=== PATIENT | female | born 1945 | race Caucasian/White ===

== ENCOUNTER 2020-05-16 09:52 | Outpatient (REF) | payer MEDICARE, SELFPAY ==
--- NOTE | 2020-05-16 | PFT_ITS ---
Forced vital capacity, slightly decreased. FEV1 and [id number] are normal. MVV also slightly decreased. Post bronchodilator therapy, there is no significant change. Total lung capacity normal. Residual volume slightly decreased. Diffusion capacity is moderately decreased. CONCLUSION: There is a slight decrease in FVC and MVV and this seems to be effort related. There is no evidence of any significant obstructive airway disorder or restrictive airway disorder. Diffusion capacity is decreased somewhat out of proportion and may be due to pulmonary emphysema/pulmonary vascular disease/or technical reason. Clinical correlation recommended. MD EDUARDO Stevens/MODL / [id number]
== END 2020-05-16 09:53 | disposition home or self-care (01) ==
LOC: HO.RESP 09:52
PROVIDERS: Visit Provider Internal Medicine Pulmonary Disease
DX: R94.2 Abnormal results of pulmonary function studies (principal); R91.8 Other nonspecific abnormal finding of lung field; R06.02 Shortness of breath
CPT/HCPCS: 94060; 94727; 94729; 99214

== ENCOUNTER → 2020-06-25 10:03 | Outpatient (BNVA) | payer MEDICARE, SELFPAY | PROVIDERS: PCP Family Medicine; Referring Provider Family Medicine; Visit Provider Internal Medicine Cardiovascular Disease | DX: R06.02 Shortness of breath (principal); I48.0 Paroxysmal atrial fibrillation; I11.9 Hypertensive heart disease without heart failure; I27.20 Pulmonary hypertension, unspecified; Z79.01 Long term (current) use of anticoagulants; Z79.899 Other long term (current) drug therapy | CPT/HCPCS: 93005; 99212 ==

== ENCOUNTER → 2020-07-02 08:35 | Outpatient (REF) | payer MEDICARE, SELFPAY ==
--- NOTE | 2020-07-02 08:39 | CA_ITS ---
Transthoracic Echocardiogram Patient (Last, First, Middle): Chiquita Meeks P Gender: Female Date of : 1945 Age: 75 Procedure Date: 07/02/2020 Procedure Type: Transthoracic Echocardiogram Location: OP Height: 165.1 cm Weight: 83.92 kg BSA: 1.91 m2 Heart Rate: bpm BP: 148 / 72 mmHg Scratch Polisher: Lorenzo MD: Franco Brennan MD Symptoms: R06.02 - Shortness of breath Study Quality: Fair ECG Rhythm: Sinus Conclusions: - The left ventricular systolic function is normal. The visually estimated ejection fraction is between 60-65%. - Evidence suggests grade II (moderate) diastolic dysfunction. - The left atrium is moderately dilated. - There is moderate mitral annular calcification. - There is mild tricuspid valve regurgitation. - Moderate pulmonary hypertension is present. Findings Left Ventricle Normal left ventricular cavity size. There is normal left ventricular wall thickness. The left ventricular systolic function is normal. The visually estimated ejection fraction is between 60-65%. E/E prime ratio is between 8 and 15 consistent with indeterminate filling pressures. Evidence suggests grade II (moderate) diastolic dysfunction. Right Ventricle Normal right ventricular cavity size and systolic function. Atria The left atrium is moderately dilated. The right atrium is normal in size. Aortic Valve There is a normal trileaflet aortic valve. There is no aortic valve stenosis. There is no aortic valve regurgitation. Mitral Valve There is moderate mitral annular calcification. There is trace mitral valve regurgitation. There is no mitral valve stenosis. Pulmonic Valve The pulmonic valve was not well visualized. Tricuspid Valve Normal tricuspid valve structure. There is mild tricuspid valve regurgitation. The right ventricular systolic pressure is 52 mmHg. Moderate pulmonary hypertension is present. Great Vessels The aortic annulus, sinuses of valsalva, and asc aorta are normal in size. Venous The inferior vena cava is normal in size and collapses greater than 50% with inspiration. Pericardium/Pleural There is no evidence of pericardial effusion. Prior Study Comparison No significant change compared to prior study dated: 01/20/2018. Measurements 2D Linear Measurements RVIDd: 3.14 RVIDd Index: 1.64 IVSd: 0.99 0.6-0.9/0.6-1.0 cm LVIDd: 4.93 3.9-5.3/4.2-5.9 cm LVIDd Index: 2.58 2.4-3.2/2.2-3.1 cm/m2 LVIDs: 3.55 2.0-3.6 cm LVPWd: 1.19 0.7-1.1 cm Ao Root: 3.40 2.1-3.5 cm LA Diam: 4.80 2.7-3.8/3.0-4.0 cm LAIDs Index: 2.51 1.5-2.3 cm/m2 LV Mass: 248.40 67-162/88-224 g LV Mass Index: 130.05 43-95/49-115 g/m2 LVOT Diam: 2.00 3.0+(-)1.3 cm 2D Systolic Function EF 4C: 71.10 >55% EF 2C: 57.40 >55% EF BiP: 62.00 >55% Mitral Valve MV Pk E: 0.87 MV PK A: 0.26 MV Decel Time: 273.00 E/A: 3.30 E'Lateral: 9.57 E'Medial: 5.87 E/E' Med: 14.80 E/E' Lat: 9.10 Aortic Valve AoV Pk Toney: 1.40 AoV Mn Toney: 1.09 AoV VTI: 0.33 AoV Pk Grad: 8.00 Aov Mn Grad: 5.00 BRENDAN Cont.VTI: 1.93 LVOT LVOT Pk Toney: 0.96 LVOT Mn Toney: 0.63 LVOT VTI: 0.20 LVOT Pk Grad: 4.00 LVOT Mn Grad: 2.00 LVOT Diam: 2.00 LVOT Area: 3.14 Diastolic Function MV Pk E: 0.87 MV Pk A: 0.26 E/A: 3.30 E'Medial: 5.87 E/E' Med: 14.80 E' Laterial: 9.57 E/E' Lat: 9.10 Tricuspid Valve TR Pk Toney: 3.49 TR Pk Grad: 49.00 RA Press: 3.00 RVSP: 52.00 Great Vessels Aorta Ao Root-2D: 3.40 2.0-3.7 cm Ao Asc: 2.90 2.1-3.4 cm Ao Arch: 2.70 Updated in Other Vendor System with Status of Final Silvino Can MD electronically signed on 07/02/2020 4:02:28 PM with status of Final
== END ==
LOC: HO.CARD 08:35
PROVIDERS: Visit Provider Internal Medicine Cardiovascular Disease
DX: I27.20 Pulmonary hypertension, unspecified (principal); I48.0 Paroxysmal atrial fibrillation; I51.89 Other ill-defined heart diseases; R06.02 Shortness of breath
CPT/HCPCS: 93306

== ENCOUNTER 2020-08-30 12:20 | Outpatient (REF) | payer MEDICARE, SELFPAY ==
[2020-08-30 12:51] LABS: MANUAL DIFF FLAG NO
[2020-08-30 13:00] LABS: Basophils Percent Auto 0.4 % (0-2); Eosinophils Absolute Auto 0.1 X10*3/uL (0.0-0.4); Eosinophils Percent Auto 1.5 % (0-4); Hematocrit 42.1 % (37-47); Hemoglobin 13.7 g/dl (12.0-16.0); Imm Gran Abs Auto 0.02 X10*3/uL (0.00-0.03); Imm Gran Pct Auto 0.4 % (0.0-0.4); Lymphocytes Absolute Auto 1.1 X10*3/uL (1.2-4.9); Lymphocytes Percent Auto 20.2 % (20-40); Mean Corpuscular HGB Conc 32.5 g/dl (31.0-35.0); Mean Corpuscular Hemoglobin 31.9 pg (27.0-33.0); Mean Corpuscular Volume 97.9 fL (80-98); Mean Platelet Volume 9.4 fL (9.4-12.3); Monocytes Absolute Auto 0.6 X10*3/uL (0.1-1.2); Monocytes Percent Auto 11.1 % (2-11); Neutrophils Absolute Auto 3.6 X10*3/uL (2.0-8.3); Neutrophils Percent Auto 66.4 % (45-73); Platelet Count 187 X10*3/uL (160-400); Red Cell Distribution Width 12.1 % (11.0-16.0); White Blood Count 5.4 X10*3/uL (4.8-10.8)
[2020-08-30 13:22] LABS: Alanine Aminotransferase 64 U/L (0-31); Anion Gap 11 (12-20); Blood Urea Nitrogen 21 mg/dL (9-16); Carbon Dioxide 28 mmol/L (22-29); Chloride 108 mmol/L (96-108); Estimated Glomerular Filt Rate > 60; Potassium 4.2 mmol/l (3.3-5.1); Sodium 143 mmol/L (135-145)
== END 2020-08-30 12:21 | disposition home or self-care (01) ==
LOC: HO.LAB 12:20
PROVIDERS: Visit Provider Family Medicine
DX: I10 Essential (primary) hypertension (principal); E78.00 Pure hypercholesterolemia, unspecified; D72.819 Decreased white blood cell count, unspecified; Z79.899 Other long term (current) drug therapy
CPT/HCPCS: 36415; 80051; 82550; 82565; 84460; 84520; 85025

== ENCOUNTER 2020-12-24 14:14 | Outpatient (REF) | payer MEDICARE, SELFPAY ==
--- NOTE | ~2020-12-24 | XR_ITS ---
EXAMINATION: XR CHEST CLINICAL INFORMATION: Shortness of breath. COMPARISON: 03/18/2019 and 03/22/2018 TECHNIQUE: Two views of the chest were obtained. FINDINGS: There is no evidence of acute parenchymal disease, pneumothorax, or pleural effusion. Heart is upper limits of normal size. No evidence of pulmonary edema. Prominent pericardial fat pad. Mild scarring left base. XR/XR chest 2V IMPRESSION: No acute disease.
== END 2020-12-24 14:15 | disposition home or self-care (01) ==
LOC: HO.XRAY 14:14
PROVIDERS: PCP Family Medicine; Visit Provider Internal Medicine Cardiovascular Disease
DX: I48.0 Paroxysmal atrial fibrillation (principal); I51.89 Other ill-defined heart diseases; Z79.01 Long term (current) use of anticoagulants; Z79.899 Other long term (current) drug therapy
CPT/HCPCS: 71046; 93005; 99212

== ENCOUNTER 2021-03-04 13:06 | Outpatient (REF) | payer MEDICARE, SELFPAY ==
--- NOTE | ~2021-03-04 | CT_ITS ---
EXAMINATION: CT CHEST WITHOUT CONTRAST CLINICAL INFORMATION: Follow up pulmonary nodules. COMPARISON: Previous chest CT most recent March 2020. TECHNIQUE: Multidetector volumetric CT imaging of the chest was done. Axial MIP volume rendering provided. Sagittal and coronal reformatted images were obtained. This CT examination was performed using dose optimization techniques as appropriate, variously including the following: *Automated exposure control *Adjustment of mA and/or kV according to patient size (this includes techniques or standardized protocols for targeted exams where dose is matched to indication/reason for exam; i.e. extremities or head) *Use of iterative reconstruction technique DLP: 160 mGy-cm FINDINGS: LUNGS: There is biapical pleural and parenchymal scarring, left greater than right. There is a 2 mm noncalcified right upper lobe nodule axial image 144 series 5 that is stable. There is an abnormal parenchymal density in the peripheral or subpleural right middle lobe adjacent to the minor fissure axial image 293 series 5. This measures 6 x 13 mm axial image 293 series 5 and is increased from approximately 3 x 13 mm on March 2020 exam. On sagittal and coronal reconstructed images this appears linear and may represent scarring or chronic subsegmental atelectasis. There is more inferior focal bronchiectasis and scarring or chronic subsegmental atelectasis in the right middle lobe. There is scarring or chronic subsegmental atelectasis in the inferior segment of the lingula. There is scarring or chronic subsegmental atelectasis in the posterior right upper lobe near the minor fissure axial image 262 series 5 that is stable. There is dependent atelectasis seen in both lower lobes. There are small calcified pulmonary nodules that are stable. MEDIASTINUM: The heart is slightly enlarged. There is mild coronary artery calcification. There is no pericardial effusion. There are no enlarged lymph nodes. The thyroid gland is unremarkable. PLEURA: There is no pleural effusion. There is focal pleural thickening adjacent to the right lower lobe axial image 25 series 3 that is increased. AXILLA: No lymphadenopathy. UPPER ABDOMEN: There is diverticulosis of the colon. OSSEOUS STRUCTURES: There are degenerative changes of the spine. CT/CT chest wo con IMPRESSION: Increasing abnormal parenchymal density in the peripheral or subpleural right middle lobe adjacent to the minor fissure. This may represent increased scarring or chronic subsegmental atelectasis. Other areas of scarring or chronic subsegmental atelectasis appear stable. Stable small pulmonary nodules. Interval increase in pleural thickening adjacent to the right lower lobe. Enlarged cardiac silhouette and mild coronary artery calcification.
== END 2021-03-04 13:07 | disposition home or self-care (01) ==
LOC: HO.CT 13:06
PROVIDERS: Visit Provider Internal Medicine Pulmonary Disease
DX: R91.8 Other nonspecific abnormal finding of lung field (principal)
CPT/HCPCS: 71250

== ENCOUNTER 2021-04-01 10:29 | Outpatient (REF) | payer MEDICARE, SELFPAY ==
[2021-04-01 11:31] LABS: MANUAL DIFF FLAG NO
[2021-04-01 11:44] LABS: Basophils Percent Auto 0.4 % (0-2); Eosinophils Percent Auto 0.5 % (0-4); Hematocrit 43.4 % (37-47); Hemoglobin 14.2 g/dl (12.0-16.0); Imm Gran Abs Auto 0.02 X10*3/uL (0.00-0.03); Imm Gran Pct Auto 0.4 % (0.0-0.4); Lymphocytes Absolute Auto 0.8 X10*3/uL (1.2-4.9); Lymphocytes Percent Auto 14.7 % (20-40); Mean Corpuscular HGB Conc 32.7 g/dl (31.0-35.0); Mean Corpuscular Hemoglobin 32.1 pg (27.0-33.0); Mean Platelet Volume 9.4 fL (9.4-12.3); Monocytes Absolute Auto 0.5 X10*3/uL (0.1-1.2); Monocytes Percent Auto 7.9 % (2-11); Neutrophils Absolute Auto 4.3 X10*3/uL (2.0-8.3); Neutrophils Percent Auto 76.1 % (45-73); Platelet Count 194 X10*3/uL (160-400); Red Blood Count 4.43 X10*6/uL (4.20-5.50); Red Cell Distribution Width 12.1 % (11.0-16.0); White Blood Count 5.7 X10*3/uL (4.8-10.8)
[2021-04-01 12:07] LABS: Anion Gap 13 (12-20); Blood Urea Nitrogen 17 mg/dL (9-16); Carbon Dioxide 25 mmol/L (22-29); Chloride 107 mmol/L (96-108); Estimated Glomerular Filt Rate 57; Magnesium 2.3 mg/dL (1.6-2.6); Potassium 4.5 mmol/L (3.3-5.1); Sodium 140 mmol/L (135-145)
== END 2021-04-01 10:30 | disposition home or self-care (01) ==
LOC: HO.LAB 10:29
PROVIDERS: PCP Family Medicine; Visit Provider Family Medicine
DX: I10 Essential (primary) hypertension (principal); D72.819 Decreased white blood cell count, unspecified
CPT/HCPCS: 36415; 80051; 82565; 83735; 84520; 85025

== ENCOUNTER → 2021-05-22 14:16 | Outpatient (BNVA) | payer MEDICARE, SELFPAY | PROVIDERS: PCP Family Medicine; Visit Provider Internal Medicine Pulmonary Disease | DX: R94.2 Abnormal results of pulmonary function studies (principal); R91.8 Other nonspecific abnormal finding of lung field; R06.02 Shortness of breath | CPT/HCPCS: 99212 ==

== ENCOUNTER 2021-05-31 13:27 | Outpatient (REF) | payer MEDICARE, SELFPAY ==
--- NOTE | ~2021-05-31 | XR_ITS ---
EXAMINATION: XR CHEST CLINICAL INFORMATION: Shortness of breath. COMPARISON: Chest done on 12/24/2020. TECHNIQUE: 2 views of the chest were obtained. FINDINGS: Persistent stable pleuroparenchymal disease involving the right middle lobe, unchanged since 12/24/2020. The remainder of the lung appear clear. No evidence of any pleural effusion or pneumothorax. The cardiomediastinal silhouette is within normal limits. Unremarkable. Mild diffuse osteopenia. Increased midthoracic kyphosis and mild multilevel degenerative spondylosis. XR/XR chest 2V IMPRESSION: Stable pleuroparenchymal disease involving the right middle lobe, unchanged since 12/24/2020. No new abnormalities.
== END 2021-05-31 13:28 | disposition home or self-care (01) ==
LOC: HO.XRAY 13:27
PROVIDERS: PCP Family Medicine; Visit Provider Internal Medicine Pulmonary Disease
DX: R06.02 Shortness of breath (principal)
CPT/HCPCS: 71046

== ENCOUNTER → 2021-06-13 14:03 | Outpatient (REF) | payer MEDICARE, SELFPAY ==
--- NOTE | 2021-06-13 14:06 | CA_ITS ---
Transthoracic Echocardiogram Patient (Last, First, Middle): Chiquita Meeks P Gender: Female Date of : 1945 Age: 75 Procedure Date: 06/13/2021 Procedure Type: Transthoracic Echocardiogram Location: OP Height: 165.1 cm Weight: 81.65 kg BSA: 1.89 m2 Heart Rate: bpm BP: 134 / 78 mmHg Mgmt Specialist: ALESSANDRO/RHIANNA Referring MD: Franco Brennan MD Construction Flagger: Franco Brennan MD Symptoms: R06.02 - Shortness of breath Study Quality: Fair ECG Rhythm: Sinus Conclusions: - 1. Normal LV systolic function with grade 3 diastolic dysfunction 2. Moderately dilated left atrium 3. Moderate mitral annular calcification with normal cardiac valvular Doppler 4. Moderately elevated right ventricular systolic pressure 5. No gross pericardial effusion Findings Left Ventricle Normal left ventricular size, thickness, and systolic function. The visually estimated ejection fraction is between 55-60%. Spectral Doppler is indicative of a restrictive filling pattern. Elevated filling pressures. E/E prime ratio is >15, consistent with elevated filling pressures. Evidence suggests grade III (severe) diastolic dysfunction. Right Ventricle Normal right ventricular cavity size and systolic function. Atria The left atrium is moderately dilated. There is no evidence of interatrial shunt. The right atrium is likely dilated. Aortic Valve The aortic valve structure and function is likely normal. There is no aortic valve stenosis. There is no aortic valve regurgitation. Mitral Valve There is mild anterior and moderate posterior mitral leaflet thickening. There is moderate mitral annular calcification. There is trace mitral valve regurgitation. There is no mitral valve stenosis. Pulmonic Valve The pulmonic valve was not well visualized. Tricuspid Valve Likely normal tricuspid valve structure and function. There is mild tricuspid valve regurgitation. Normal right atrial pressure. Moderate pulmonary hypertension is present. Great Vessels All visible segments of the aorta are normal in size. The pulmonary artery was not well visualized. Venous The inferior vena cava is normal in size and collapses greater than 50% with inspiration. Pericardium/Pleural There is no evidence of pericardial effusion. Prior Study Comparison Changes noted compared to prior study dated: 07/02/2020. LV diastolic function appears to be grade 3 Measurements 2D Linear Measurements IVSd: 1.14 0.6-0.9/0.6-1.0 cm LVIDd: 5.32 3.9-5.3/4.2-5.9 cm LVIDd Index: 2.81 2.4-3.2/2.2-3.1 cm/m2 LVIDs: 3.75 2.0-3.6 cm LVPWd: 1.01 0.7-1.1 cm Ao Root: 3.30 2.1-3.5 cm LA Diam: 4.20 2.7-3.8/3.0-4.0 cm LAIDs Index: 2.22 1.5-2.3 cm/m2 LV Mass: 276.91 67-162/88-224 g LV Mass Index: 146.52 43-95/49-115 g/m2 LVOT Diam: 2.10 3.0+(-)1.3 cm 2D Systolic Function EF 4C: 55.20 >55% EF 2C: 55.70 >55% EF BiP: 57.90 >55% Mitral Valve MV Pk E: 1.05 MV PK A: 0.30 MV Decel Time: 189.00 E/A: 3.50 E'Lateral: 5.22 E'Medial: 5.44 E/E' Med: 19.30 E/E' Lat: 20.10 PHT: 55.00 MVA PHT: 4.00 Decel [place]: 5.57 Aortic Valve AoV Pk Toney: 1.35 AoV Mn Toney: 1.02 AoV VTI: 0.32 AoV Pk Grad: 7.00 Aov Mn Grad: 4.00 BRENDAN Cont.VTI: 2.17 LVOT LVOT Pk Toney: 0.94 LVOT Mn Toney: 0.64 LVOT VTI: 0.20 LVOT Pk Grad: 4.00 LVOT Mn Grad: 2.00 LVOT Diam: 2.10 LVOT Area: 3.46 Diastolic Function MV Pk E: 1.05 MV Pk A: 0.30 E/A: 3.50 E'Medial: 5.44 E/E' Med: 19.30 E' Laterial: 5.22 E/E' Lat: 20.10 Right Ventricle TAPSE (mm): 1.95 TVS' Toney: 13.40 Tricuspid Valve TR Pk Toney: 3.33 TR Pk Grad: 44.00 RA Press: 3.00 RVSP: 47.00 Great Vessels Aorta Ao Root-2D: 3.30 2.0-3.7 cm Ao Asc: 3.10 2.1-3.4 cm Ao Arch: 2.70 Updated in Other Vendor System with Status of Final Franco Brennan MD electronically signed on 06/14/2021 4:00:03 PM with status of Final
== END ==
LOC: HO.CARD 14:03
PROVIDERS: PCP Family Medicine; Visit Provider Internal Medicine Cardiovascular Disease
DX: R06.02 Shortness of breath (principal)
CPT/HCPCS: 93306

== ENCOUNTER → 2021-06-20 14:42 | Outpatient (BNVA) | payer MEDICARE, SELFPAY | PROVIDERS: PCP Family Medicine; Visit Provider Internal Medicine Cardiovascular Disease | DX: I48.0 Paroxysmal atrial fibrillation (principal); I51.89 Other ill-defined heart diseases | CPT/HCPCS: 93005; 99212 ==

== ENCOUNTER → 2021-06-21 14:20 | Outpatient (BNVA) | payer MEDICARE, SELFPAY | PROVIDERS: PCP Family Medicine; Visit Provider Internal Medicine Pulmonary Disease | DX: R05.3 Chronic cough (principal); R94.2 Abnormal results of pulmonary function studies; R91.8 Other nonspecific abnormal finding of lung field | CPT/HCPCS: 99212 ==

== ENCOUNTER → 2021-06-24 10:36 | Outpatient (REF) | payer MEDICARE, SELFPAY ==
--- NOTE | ~2021-06-24 | NM_ITS ---
TC_PYP CARDIAC STUDY INDICATION: Evaluation for cardiac amyloidosis CLINICAL HISTORY: 76-year-old with diastolic dysfunction and atrial fibrillation with symptoms of congestive heart failure. TECHNIQUE: The patient is injected with 25 mCi of [id number] intravenously. Images of the chest were obtained in the anterior and left lateral views at 3 hours. Chest also obtained. Total DLP 61 mGy-cm. FINDINGS: 1. Image quality is adequate. 2. Semiquantitative visual scoring of the cardiac uptake is 0. This is suggestive of absent cardiac uptake 3. H-CL is not applicable 4. No clear extracardiac findings CONCLUSION: 1. No evidence wild-type ATTR amyloidosis 2. If clinically suspected performed to rule out light chain amyloidosis
== END ==
LOC: HO.NUCMED 10:36
PROVIDERS: PCP Family Medicine; Visit Provider Internal Medicine Cardiovascular Disease
DX: I48.0 Paroxysmal atrial fibrillation (principal); I51.89 Other ill-defined heart diseases
CPT/HCPCS: 78803; A9538

== ENCOUNTER 2021-06-26 14:19 | Outpatient (REF) | payer MEDICARE, SELFPAY | END 2021-06-26 14:20 | disposition home or self-care (01) | LOC: HO.LNP 14:19 | PROVIDERS: Visit Provider Internal Medicine Pulmonary Disease | DX: R06.02 Shortness of breath (principal) | CPT/HCPCS: 87070; 87205 ==

== ENCOUNTER → 2021-07-11 15:06 | Outpatient (BNVA) | payer MEDICARE, SELFPAY | PROVIDERS: PCP Family Medicine; Visit Provider Internal Medicine Pulmonary Disease ==

== ENCOUNTER → 2021-07-25 14:57 | Outpatient (BNVA) | payer MEDICARE, SELFPAY | PROVIDERS: PCP Family Medicine; Visit Provider Internal Medicine Pulmonary Disease | DX: R05.3 Chronic cough (principal); R06.02 Shortness of breath; R94.2 Abnormal results of pulmonary function studies | CPT/HCPCS: 99212 ==

== ENCOUNTER 2021-07-27 15:16 | Inpatient (IN) | payer MEDICARE, SELFPAY ==
[2021-07-27] VITALS (7 sets, daily range): BP systolic 156–175; BP diastolic 99–113; PULSE 99–122; RESP 14–20; TEMP 36.6–36.8; O2SAT 95–97; BMI 30.1
--- NOTE | 2021-07-27 | ECG_ITS ---
Test Reason : DYSRYTHMIA Blood Pressure : / mmHG Vent. Rate : 102 BPM Atrial Rate : 000 BPM P-R Int : 000 ms QRS Dur : 090 ms QT Int : 366 ms P-R-T Axes : 000 019 008 degrees QTc Int : 477 ms Atrial fibrillation with rapid ventricular response Minimal voltage criteria for LVH, may be normal variant ( [place] product ) Nonspecific ST abnormality Abnormal ECG When compared with ECG of 29-APR-2019 14:17, Atrial fibrillation has replaced Sinus rhythm Inverted T waves have replaced nonspecific T wave abnormality in Inferior leads Referred By: Generic ED Physician Electronically Signed By:TAMICA SOLITARIO MD
--- NOTE | ~2021-07-27 | XR_ITS ---
EXAMINATION: XR CHEST CLINICAL INFORMATION: Atrial fibrillation. COMPARISON: Chest radiograph dated from 05/31/2021. TECHNIQUE: AP view of the chest was obtained. FINDINGS: Unchanged cardiomediastinal silhouette. Mild subsegmental atelectasis of the lung bases. No new focal airspace opacities, pleural effusions or pneumothorax. No acute osseous findings. XR/XR chest 1V IMPRESSION: No acute cardiopulmonary findings.
[2021-07-27 16:56] LABS: COVID-19 Test Negative (Negative)
--- NOTE | 2021-07-27 19:55 | ED.ARRPALP ---
HPI - Arrhythmia/Palpitations General Chief Complaint: Arrhythmia/Palpitations Stated Complaint: afib Time Seen by Provider: 07/27/21 19:32 Source: patient Mode of arrival: ambulatory Limitations: no limitations History of Present Illness HPI narrative: Patient comes to emergency room complaining of feeling ?crappy?, having palpitations intermittently since approximately 5 in the morning. At this time patient denies chest pain, patient has chronic shortness of breath. Patient states that her Lasix dose has been changed multiple times by her different specialists, currently 10 mg. Patient also takes amiodarone, carvedilol, diltiazem. Patient also takes Xarelto. Patient states that she has history of 2 ablations and 5 cardioversions. This morning, patient called Dr. Brennan office, who recommended an additional dose of Cardizem. Patient states that she has been having intermittently symptoms. Related Data Home Medications Medication Instructions Recorded Confirmed gabapentin 300 mg capsule mg PO 05/16/20 06/20/21 losartan 100 mg tablet 50 mg PO DAILY tab 05/16/20 06/20/21 montelukast 10 mg tablet 10 mg PO DAILY 05/16/20 06/20/21 omeprazole 20 mg capsule,delayed 20 mg PO DAILY 05/16/20 06/20/21 release fexofenadine 180 mg tablet 180 mg PO DAILY 06/21/21 ([facility] Allergy) Previous Rx's Medication Instructions Recorded diltiazem HCl 120 mg 120 mg PO DAILY #30 cap 08/01/20 capsule,extended release 24 hr atorvastatin 40 mg tablet 40 mg PO DAILY 90 Days #90 tab 03/15/21 rivaroxaban 20 mg tablet (Xarelto) 20 mg PO DAILY 90 Days #90 tab 04/02/21 amiodarone 200 mg tablet 200 mg PO DAILY #90 tab 07/22/21 carvedilol 12.5 mg tablet 12.5 mg PO BID 90 Days #180 tab 07/22/21 doxycycline hyclate 100 mg capsule 100 mg PO BID 10 Days #20 cap 07/25/21 Allergies Allergy/AdvReac Type Severity Reaction Status Date / Time aspirin [ASPIRIN] Allergy Unknown RASH Verified 07/25/21 14:59 Sulfa (Sulfonamide Allergy Unknown RASH Verified 07/25/21 14:59 Antibiotics) [SULFA (SULFONAMIDE ANTIBIOTICS)] Review of Systems Review of Systems: Constitutional : No Weight loss, No Fever, No Chills, No Night Sweats, No Fatigue, No Malaise ENT/Mouth : No Hearing loss, No Ear Pain, No Nasal Congestion, No Sinus Pain, No Hoarseness, No sore throat, No Rhinorrhea, No Swallowing Difficulty Eyes: No Eye Pain, No Swelling, No Redness, No Foreign Body, No Discharge, No Vision Changes Cardiovascular : No Chest Pain, No SOB, No Dyspnea on Exertion, No Orthopnea, complaining of chronic lower extremity edema, complaining of Palpitations Respiratory : Complaining of chronic, Cough, No Sputum, No Wheezing, complaining of chronic Dyspnea Gastrointestinal : No Nausea, No Vomiting, No Diarrhea, No Constipation, No abdominal Pain, No Hematochezia, No Melena Genitourinary : no irregular bleeding, No Dysuria, No Urinary Frequency, No Hematuria, No Urinary Incontinence, No Urgency, No Flank Pain, No Urinary Flow Changes, No Hesitancy Musculoskeletal : No joint pain, No Myalgias, No Joint Swelling Skin : No Skin Lesions, No rash Neuro : No Weakness, No Numbness, No Paresthesias, No Loss of Consciousness, No Dizziness, No Headache Psych : No Anxiety/Panic, No Depression, No SI/HI/AH/VH, No Social Issues, Heme/Lymph: No Bruising, No Bleeding,No Lymphadenopathy Endocrine : No Polyuria, No Polydipsia, No Temperature Intolerance [facility] Past Medical History Medical History Diastolic dysfunction History of cardiomyopathy History of cardioversion HTN (hypertension) Paroxysmal atrial fibrillation Pulmonary hypertension Surgical History History of back surgery Hx of cardiac cath Hx of hand surgery Family History Family History Father Cancer Mother No problems noted. Social History Social History Advance Directives: No Advance Directives Information Provided: Yes Physical Exam Vital Signs: Vital Signs: Last Vital Signs Temp 98.1 F 07/27/21 22:34 Pulse 119 H 07/27/21 22:34 Resp 16 07/27/21 22:34 BP 166/110 H 07/27/21 22:34 Pulse Ox 97 07/27/21 22:34 BMI result Body Mass Index 30.1 Const: Other: Appearance: Alert. Oriented X3. No acute distress. Eyes: Pupils equal, round and reactive to light. ENT: Pharynx normal. Neck: Normal inspection. Neck supple. No lymph nodes noted. No crepitus CVS: Irregularly irregular, heart rate approximately 100 to 110, normal S1 and S2 Respiratory: No respiratory distress. Breath sounds normal. No Wheezing. No rales Abdomen: Soft and nontender. No rigidity. No distention. good BS x4 Skin: Skin warm and dry. Normal skin color. Normal skin turgor. Extremities: +1 pitting edema bilaterally No Lacerations. No Rash Neuro: Oriented X 3. No motor deficit. No sensory deficit. Moving all extermities. No slurred speech. Course Course Course Narrative: Patient received 1 dose of 10 mg IV Cardizem. Patient's heart rate dropped to 110. Blood pressure still 160/110 systolic. Patient received a 2nd dose of IV Cardizem. Patient's heart rate varies between 88-120. Patient started on a Cardizem drip. Patient will be admitted to the hospital, is possible the patient will need cardioversion, she has had 5 cardioversions in the last few years. MDM - Arrhythmia/Palpitations Lab Data Result diagrams: 07/27/21 20:15 07/27/21 20:15 Labs: Lab Results 07/27/21 07/27/21 07/27/21 Range/Units 16:16 20:15 20:15 WBC 6.8 (4.8-10.8) X10*3/uL RBC 4.94 (4.20-5.50) X10*6/uL Hgb 16.4 H (12.0-16.0) g/dl Hct 48.2 H (37.0-47.0) % MCV 97.6 (80.0-98.0) fL MCH 33.2 H (27.0-33.0) pg MCHC 34.0 (31.0-35.0) g/dl RDW 12.2 (11.0-16.0) % Plt Count 246 (160-400) X10*3/uL MPV 8.8 L (9.4-12.3) fL Immature Gran % (Auto) 0.3 (0.0-0.4) % Neut % (Auto) 63.1 (45-73) % Lymph % (Auto) 25.0 (20-40) % [place] % (Auto) 10.0 (2-11) % Eos % (Auto) 1.0 (0-4) % Baso % (Auto) 0.6 (0-2) % Lymph # (Auto) 1.7 (1.2-4.9) X10*3/uL [place] # (Auto) 0.7 (0.1-1.2) X10*3/uL Eos # (Auto) 0.1 (0.0-0.4) X10*3/uL Baso # (Auto) 0.0 (0.0-0.2) X10*3/uL Abs Immat Gran (auto) 0.02 (0.00-0.03) X10*3/uL Absolute Neuts (auto) 4.3 (2.0-8.3) x10*3/uL Absolute Nucleated RBC 0.000 (0.0-0.012) X10*3/uL Nucleated RBC % (auto) 0.0 (0.0-0.2) /100WBC Sodium 144 (135-145) mmol/L Potassium 3.8 (3.3-5.1) mmol/L Chloride 107 (96-108) mmol/L Carbon Dioxide 24 (22-29) mmol/L Anion Gap 17 (12-20) BUN 18 H (9-16) mg/dL Creatinine 0.83 (0.5-1.4) mg/dL Estim Creat Clear Calc 60.0 Estimated GFR > 60 Random Glucose 124 H (60-115) mg/dL Calcium 9.8 (8.4-10.2) mg/dL Total Bilirubin 1.7 H (0.0-1.0) mg/dL Direct Bilirubin 0.6 H (0.0-0.5) mg/dL AST 56 H (5-31) U/L ALT 77 H (0-31) U/L Alkaline Phosphatase 101 (39-117) U/L Troponin I High Sens (<3.5-17.0) ng/L Total Protein 7.9 (6.5-8.0) g/dL Albumin 4.8 (3.5-5.0) g/dL COVID-19 (KIANA) Negative (Negative) COVID-19 Clin Com See Note 07/27/21 Range/Units 20:15 WBC (4.8-10.8) X10*3/uL RBC (4.20-5.50) X10*6/uL Hgb (12.0-16.0) g/dl Hct (37.0-47.0) % MCV (80.0-98.0) fL MCH (27.0-33.0) pg MCHC (31.0-35.0) g/dl RDW (11.0-16.0) % Plt Count (160-400) X10*3/uL MPV (9.4-12.3) fL Immature Gran % (Auto) (0.0-0.4) % Neut % (Auto) (45-73) % Lymph % (Auto) (20-40) % [place] % (Auto) (2-11) % Eos % (Auto) (0-4) % Baso % (Auto) (0-2) % Lymph # (Auto) (1.2-4.9) X10*3/uL [place] # (Auto) (0.1-1.2) X10*3/uL Eos # (Auto) (0.0-0.4) X10*3/uL Baso # (Auto) (0.0-0.2) X10*3/uL Abs Immat Gran (auto) (0.00-0.03) X10*3/uL Absolute Neuts (auto) (2.0-8.3) x10*3/uL Absolute Nucleated RBC (0.0-0.012) X10*3/uL Nucleated RBC % (auto) (0.0-0.2) /100WBC Sodium (135-145) mmol/L Potassium (3.3-5.1) mmol/L Chloride (96-108) mmol/L Carbon Dioxide (22-29) mmol/L Anion Gap (12-20) BUN (9-16) mg/dL Creatinine (0.5-1.4) mg/dL Estim Creat Clear Calc Estimated GFR Random Glucose (60-115) mg/dL Calcium (8.4-10.2) mg/dL Total Bilirubin (0.0-1.0) mg/dL Direct Bilirubin (0.0-0.5) mg/dL AST (5-31) U/L ALT (0-31) U/L Alkaline Phosphatase (39-117) U/L Troponin I High Sens 14.4 (<3.5-17.0) ng/L Total Protein (6.5-8.0) g/dL Albumin (3.5-5.0) g/dL COVID-19 (KIANA) (Negative) COVID-19 Clin Com Imaging Data Chest x-ray: Radiologist's impression: FINDINGS: Unchanged cardiomediastinal silhouette. Mild subsegmental atelectasis of the lung bases. No new focal airspace opacities, pleural effusions or pneumothorax. No acute osseous findings. XR/XR chest 1V IMPRESSION: No acute cardiopulmonary findings. Critical Care Time Critical Care Time Critical Care Time: Yes Total Critical Care Time: 50 Attestation: 50 minutes were spent in direct patient care and stabilization Discharge Plan Discharge Clinical Impression: Atrial fibrillation with RVR Patient Disposition: Admitted As Inpatient Prescriptions: No Action diltiazem HCl 120 mg capsule,extended release 24hr 120 mg PO DAILY Qty: 30 RF: 6 atorvastatin 40 mg tablet 40 mg PO DAILY 90 Days Qty: 90 RF: 3 Xarelto 20 mg tablet 20 mg PO DAILY 90 Days Qty: 90 RF: 2 amiodarone 200 mg tablet 200 mg PO DAILY Qty: 90 RF: 1 carvedilol 12.5 mg tablet 12.5 mg PO BID 90 Days Qty: 180 RF: 3 omeprazole 20 mg capsule,delayed release(DR/EC) 20 mg PO DAILY RF: 0 losartan 100 mg tablet 50 mg PO DAILY RF: 0 montelukast 10 mg tablet 10 mg PO DAILY RF: 0 gabapentin 300 mg capsule PO RF: 0 fexofenadine [Shea Allergy] 180 mg tablet 180 mg PO DAILY RF: 0 doxycycline hyclate 100 mg capsule 100 mg PO BID 10 Days Qty: 20 RF: 0
--- NOTE | 2021-07-27 19:58 | ECG_ITS ---
Test Reason : AFIB Blood Pressure : / mmHG Vent. Rate : 094 BPM Atrial Rate : 000 BPM P-R Int : 000 ms QRS Dur : 090 ms QT Int : 372 ms P-R-T Axes : 000 019 029 degrees QTc Int : 465 ms Atrial fibrillation Minimal voltage criteria for LVH, may be normal variant ( [place] product ) Nonspecific ST abnormality Abnormal ECG When compared with ECG of 27-JUL-2021 15:36, Nonspecific T wave abnormality now evident in Anterior leads Referred By: Radha Leroy Electronically Signed By:TAMICA SOLITARIO MD
[2021-07-27 20:20] LABS: MANUAL DIFF FLAG NO
[2021-07-27 20:24] LABS: Basophils Percent Auto 0.6 % (0-2); Eosinophils Absolute Auto 0.1 X10*3/uL (0.0-0.4); Hematocrit 48.2 % (37.0-47.0); Hemoglobin 16.4 g/dl (12.0-16.0); Imm Gran Abs Auto 0.02 X10*3/uL (0.00-0.03); Imm Gran Pct Auto 0.3 % (0.0-0.4); Lymphocytes Absolute Auto 1.7 X10*3/uL (1.2-4.9); Mean Corpuscular Hemoglobin 33.2 pg (27.0-33.0); Mean Corpuscular Volume 97.6 fL (80.0-98.0); Mean Platelet Volume 8.8 fL (9.4-12.3); Monocytes Absolute Auto 0.7 X10*3/uL (0.1-1.2); Neutrophils Absolute Auto 4.3 x10*3/uL (2.0-8.3); Neutrophils Percent Auto 63.1 % (45-73); Platelet Count 246 X10*3/uL (160-400); Red Blood Count 4.94 X10*6/uL (4.20-5.50); Red Cell Distribution Width 12.2 % (11.0-16.0); White Blood Count 6.8 X10*3/uL (4.8-10.8)
[2021-07-27] MEDS: dilTIAZem HCL 50 MG/10 ML VIAL 10 MG IVPUSH ×2 (20:28→21:24)
[2021-07-27 20:35] LABS: Alanine Aminotransferase 77 U/L (0-31); Albumin Level 4.8 g/dL (3.5-5.0); Alkaline Phosphatase 101 U/L (39-117); Anion Gap 17 (12-20); Aspartate Amino Transferase 56 U/L (5-31); Bilirubin Direct 0.6 mg/dL (0.0-0.5); Bilirubin Total 1.7 mg/dL (0.0-1.0); Blood Urea Nitrogen 18 mg/dL (9-16); Calcium 9.8 mg/dL (8.4-10.2); Carbon Dioxide 24 mmol/L (22-29); Chloride 107 mmol/L (96-108); Estimated Glomerular Filt Rate > 60; Glucose Random 124 mg/dL (60-115); Potassium 3.8 mmol/L (3.3-5.1); Sodium 144 mmol/L (135-145); Total Protein 7.9 g/dL (6.5-8.0)
[2021-07-27 20:39] LABS: Troponin-I High Sensitivity 14.4 ng/L (<3.5-17.0)
--- NOTE | 2021-07-27 23:00 | P.HPHOSP_ITS ---
History of Present Illness Date of Service: 07/27/21 Chief Complaint: palpitations This is a 76-year-old female with past medical history of AFib, diastolic heart failure, HTN, pulmonary hypertension who presents to the hospital with complaints of palpitations. Patient reports that she has been having on on palp itations for the past few days. She has not had any dizziness, but felt tired, she feels that there is mice running in her chest, she denies any chest pain, denies any shortness of breath, she has been having dry heaves with no vomiting, no abdominal pain, no diarrhea constipation, no urinary symptoms and no lower extremity edema. She called her management lecturer Dr. Brennan of recommended taking extra dose of her Cardizem which did not really resolve her symptoms, therefore decided to come to the hospital with recommendation from her management lecturer. In the ED patient presented with a heart rate in the 110s-130s, received 10 mg of IV Cardizem x2 but remained tachycardic, patient was started on diltiazem drip. Other vitals on arrival were significant for temp of 98.3?, respiratory rate of 20, blood pressure 156/118, satting 96 on room air Labs are significant for WBC count of 6.8, hemoglobin of 16.4, hematocrit 40.2, total bilirubin of 1.7, direct bili of 0.6, AST of 56 ALT of 77, BNP of 328, UA positive for leukocyte Estrace and WBC Chest x-ray shows no acute cardiopulmonary findings EKG showed AFib with RVR and inverted T-waves in inferior leads Patient will be admitted for further management Review of Systems Review of Systems: Yes all other systems are reviewed and are negative [facility] Medical History Diastolic dysfunction History of cardiomyopathy History of cardioversion HTN (hypertension) Paroxysmal atrial fibrillation Pulmonary hypertension Family History Father Cancer Mother No problems noted. Surgical History History of back surgery Hx of cardiac cath Hx of hand surgery Social History Advance Directives: No Advance Directives Information Provided: Yes Meds Allergies Allergy/AdvReac Type Severity Reaction Status Date / Time aspirin [ASPIRIN] Allergy Unknown RASH Verified 07/25/21 14:59 Sulfa (Sulfonamide Allergy Unknown RASH Verified 07/25/21 14:59 Antibiotics) [SULFA (SULFONAMIDE ANTIBIOTICS)] Active Medications: Current Medications Diltiazem HCl 125 mg/ Sodium (Chloride) 125 mls @ 0 mls/hr IVCONT .Q0M [facility]; Protocol Home Medications Medication Instructions Recorded Confirmed Last Taken Type gabapentin 300 mg capsule mg PO 05/16/20 06/20/21 Unknown History losartan 100 mg tablet 50 mg PO DAILY tab 05/16/20 06/20/21 Unknown History montelukast 10 mg tablet 10 mg PO DAILY 05/16/20 06/20/21 Unknown History omeprazole 20 mg capsule,delayed 20 mg PO DAILY 05/16/20 06/20/21 Unknown History release fexofenadine 180 mg tablet 180 mg PO DAILY 06/21/21 Unknown History (Shea Allergy) Physical Exam Vital Signs and Narrative: Vital Signs: Last Vital Signs Temp 98.1 F 07/27/21 22:34 Pulse 119 H 07/27/21 22:34 Resp 16 07/27/21 22:34 BP 166/110 H 07/27/21 22:34 Pulse Ox 97 07/27/21 22:34 BMI result Body Mass Index 30.1 Const: General: cooperative and no acute distress Orientation/consciousness: patient oriented x3 Eyes: General: appearance normal, both eyes and all related structures Pupils: Equal, round and reactive pupils present Resp: Effort & Inspection: normal respiratory effort Auscultation: clear to auscultation bilaterally Cardio: Other: Irregular rhythm, tachycardic GI: Palpation (GI): Soft to palpation Auscultation: normal bowel sounds Skin: General skin exam: no rashes or lesions noted Neuro: General: patient oriented x3 Cranial nerves: Yes Equal, round and reactive pupils present Cognition (Neuro): normal cognition Extrem: General: Yes normal to inspection and Yes no pedal edema Results Labs CBC and Chem 7: 07/27/21 20:15 07/27/21 20:15 Labs: Laboratory Results - last 24 hr 07/27/21 07/27/21 07/27/21 16:16 20:15 20:15 MCV 97.6 MCH 33.2 H MCHC 34.0 RDW 12.2 Plt Count 246 MPV 8.8 L Immature Gran % (Auto) 0.3 Neut % (Auto) 63.1 Lymph % (Auto) 25.0 Bath % (Auto) 10.0 Eos % (Auto) 1.0 Baso % (Auto) 0.6 Lymph # (Auto) 1.7 Bath # (Auto) 0.7 Eos # (Auto) 0.1 Baso # (Auto) 0.0 Abs Immat Gran (auto) 0.02 Absolute Neuts (auto) 4.3 Absolute Nucleated RBC 0.000 Nucleated RBC % (auto) 0.0 Anion Gap 17 Estim Creat Clear Calc 60.0 Estimated GFR > 60 Random Glucose 124 H Calcium 9.8 Total Bilirubin 1.7 H Direct Bilirubin 0.6 H AST 56 H ALT 77 H Alkaline Phosphatase 101 Troponin I High Sens Total Protein 7.9 Albumin 4.8 COVID-19 ([facility]) Negative COVID-19 Clin Com See Note 07/27/21 20:15 MCV MCH MCHC RDW Plt Count MPV Immature Gran % (Auto) Neut % (Auto) Lymph % (Auto) Bath % (Auto) Eos % (Auto) Baso % (Auto) Lymph # (Auto) Bath # (Auto) Eos # (Auto) Baso # (Auto) Abs Immat Gran (auto) Absolute Neuts (auto) Absolute Nucleated RBC Nucleated RBC % (auto) Anion Gap Estim Creat Clear Calc Estimated GFR Random Glucose Calcium Total Bilirubin Direct Bilirubin AST ALT Alkaline Phosphatase Troponin I High Sens 14.4 Total Protein Albumin COVID-19 ([facility]) COVID-19 Clin Com Imaging Radiologist's Impressions: Impressions Chest X-Ray 07/27/21 20:06 IMPRESSION: No acute cardiopulmonary findings. Assessment and Plan (1) Atrial fibrillation with RVR: Status: Acute (2) UTI (urinary tract infection): Status: Acute 76-year-old female with past medical history of cardiomyopathy as well as AFib presents to the hospital with complaints of palpitations # AFib with RVR - most likely driven by UTI - has no significant elevation in troponin - EKG shows AFib with RVR and 70 T-wave Bashir - will consult Cardiology - keep NPO for possible cardioversion in a.m. - continue Xarelto for anticoagulation and will resume home medications of carvedilol, diltiazem, amiodarone # UTI - positive UA - posterior IV antibiotics - follow cultures # hyperlipidemia - continue statin # history of heart failure - Appears euvolemic at this time - has elevated BNP - monitor respiratory status DVT prophylaxis: Xarelto Quality Stroke Does the patient have a stroke diagnosis?: No VTE Prior VTE?: No VTE Risk Level:: Medical - moderate - high VTE Device Contraindication: Treatment Not Indicated VTE Drug Contraindication: N/A - Med Ordered
[2021-07-27 23:20] LABS: B Type Natriuretic Peptide 328 pg/mL (<100)
[2021-07-27] MEDS: dilTIAZem HCL 125 MG in 0.9 % Sodium Chloride 100 ML 10 MG IVCONT (23:26)
[2021-07-27 23:40] LABS: Appearance Urine CLOUDY; Color Urine DK YELLOW; Glucose Urine UA NEG (NEG); Leukocyte Esterase Urine 3+ (NEG); Nitrite Urine NEG (NEG); Specific Gravity - Urine 1.025 (1.005-1.025); UACC Culture Trigger YES; Urine Blood NEG (NEG); Urine Ketones NEG (NEG); Urine Protein TRACE MG/DL (NEG-TRACE)
[2021-07-28] VITALS (21 sets, daily range): BP systolic 110–158; BP diastolic 77–98; PULSE 62–121; RESP 14–18; TEMP 36.6; O2SAT 90–98
[2021-07-28 00:25] LABS: Bacteria Urine 2+ /LPF; Mucus Urine 4+ /LPF; Squamous Epithelial Cell Urine 4+ /LPF; WBC Urine 30-49 /HPF (0-4)
--- NOTE | 2021-07-28 07:22 | PC.NURSE ---
Patient awake and alert. Speaking in full,clear sentences. Denies any pain, Afib via tele, VSS. continues on cardizem drip. antibiotics ordered, waiting to hear from hospitalist whether or not blood cultures will be ordered prior to abt. patient aware of NPO status at this time
[2021-07-28 07:28] LABS: MANUAL DIFF FLAG NO
[2021-07-28 07:29] LABS: Basophils Percent Auto 0.4 % (0-2); Eosinophils Absolute Auto 0.1 X10*3/uL (0.0-0.4); Eosinophils Percent Auto 0.9 % (0-4); Hematocrit 43.7 % (37.0-47.0); Hemoglobin 14.9 g/dl (12.0-16.0); Imm Gran Abs Auto 0.01 X10*3/uL (0.00-0.03); Imm Gran Pct Auto 0.1 % (0.0-0.4); Lymphocytes Absolute Auto 1.2 X10*3/uL (1.2-4.9); Lymphocytes Percent Auto 17.1 % (20-40); Mean Corpuscular HGB Conc 34.1 g/dl (31.0-35.0); Mean Corpuscular Volume 96.9 fL (80.0-98.0); Mean Platelet Volume 9.1 fL (9.4-12.3); Monocytes Absolute Auto 0.8 X10*3/uL (0.1-1.2); Monocytes Percent Auto 12.4 % (2-11); Neutrophils Absolute Auto 4.6 x10*3/uL (2.0-8.3); Neutrophils Percent Auto 69.1 % (45-73); Platelet Count 214 X10*3/uL (160-400); Red Blood Count 4.51 X10*6/uL (4.20-5.50); Red Cell Distribution Width 12.2 % (11.0-16.0); White Blood Count 6.7 X10*3/uL (4.8-10.8)
[2021-07-28 07:53] LABS: Anion Gap 13 (12-20); Blood Urea Nitrogen 21 mg/dL (9-16); Calcium 8.8 mg/dL (8.4-10.2); Carbon Dioxide 23 mmol/L (22-29); Chloride 110 mmol/L (96-108); Creatinine Clr Calc Pharmacy 69.2; Estimated Glomerular Filt Rate > 60; Glucose Random 100 mg/dL (60-115); Potassium 3.6 mmol/L (3.3-5.1); Sodium 142 mmol/L (135-145)
--- NOTE | 2021-07-28 08:20 | HO.PM.IMPN ---
Subjective Subjective Date of Service: 07/28/21 Interval History: UTI, AFib with RVR Review of Systems Denies any new complaint of chest pain or shortness of breath or abdominal pain or fever or chills or nausea or vomiting or cough Denies any weakness or numbness. Physical Exam Vital Signs: Vital Signs: Last Vital Signs Temp 97.8 F 07/28/21 06:26 Pulse 90 07/28/21 07:21 Resp 18 07/28/21 07:21 BP 143/79 H 07/28/21 07:21 Pulse Ox 94 07/28/21 07:21 BMI result Body Mass Index 30.1 Appearance: Alert.? Oriented X3.? not in distress.? Eyes: Pupils equal, round and reactive to light.? Sclera nonicteric.? ENT: Pharynx normal.? Moist mucous membranes. cvs: irregular rhythm, [id number] res: clear to auscultation ,no rhonchii or wheezing abd: no rebound or guarding ,nt, bs present. ext pulses present , no cyanosis. neuro: axo3 , nonfocal. Objective Data Active Medications Acetaminophen (Acetaminophen 325 Mg Tablet) 650 mg PO Q6H PRN PRN Reason: Pain, Mild (Pain Scale 1-3) Docusate Sodium (Docusate Sodium 100 Mg Capsule) 100 mg PO DAILY PRN PRN Reason: Constipation Diltiazem HCl 125 mg/ Sodium (Chloride) 125 mls @ 0 mls/hr IVCONT .Q0M [facility]; Protocol Last Admin: 07/27/21 23:26 Dose: 10 mg/hr, 10 mls/hr Documented by: RELL Ceftriaxone Sodium 1 gm/ (Sodium Chloride) 50 mls @ 100 mls/hr IV Q24H [facility] Ondansetron HCl (Ondansetron Hcl 4 Mg/2 Ml Vial) 4 mg IVPUSH Q8H PRN PRN Reason: Nausea and Vomiting Sodium Chloride (0.9 % Sodium Chloride Flush 3 Ml Syringe) 3 ml IVFLUSH QSHIFT [facility] Last Admin: 07/28/21 03:02 Dose: Not Given Documented by: ETHAN Non-Admin Reason: Med Not Available Labs CBC & Chem 7: 07/28/21 07:01 07/28/21 07:01 Labs: Laboratory Results - last 24 hr 1207/27/21 07/27/21 16:16 20:15 20:15 MCV 97.6 MCH 33.2 H MCHC 34.0 RDW 12.2 Plt Count 246 MPV 8.8 L Immature Gran % (Auto) 0.3 Neut % (Auto) 63.1 Lymph % (Auto) 25.0 [place] % (Auto) 10.0 Eos % (Auto) 1.0 Baso % (Auto) 0.6 Lymph # (Auto) 1.7 Dixon # (Auto) 0.7 Eos # (Auto) 0.1 Baso # (Auto) 0.0 Abs Immat Gran (auto) 0.02 Absolute Neuts (auto) 4.3 Absolute Nucleated RBC 0.000 Nucleated RBC % (auto) 0.0 Anion Gap 17 Estim Creat Clear Calc 60.0 Estimated GFR > 60 Random Glucose 124 H Calcium 9.8 Total Bilirubin 1.7 H Direct Bilirubin 0.6 H AST 56 H ALT 77 H Alkaline Phosphatase 101 Troponin I High Sens B-Natriuretic Peptide Total Protein 7.9 Albumin 4.8 Urine Color Urine Appearance Urine pH Ur Specific [place] Urine Protein Urine Glucose (UA) Urine Ketones Urine Blood Urine Nitrite Ur Leukocyte Esterase Urine RBC Urine WBC Ur Squamous Epith Cells Urine Bacteria Urine Mucus COVID-19 ([facility]) Negative COVID-19 Clin Com See Note 07/27/21 07/27/21 07/28/21 20:15 23:25 07:01 MCV 96.9 MCH 33.0 MCHC 34.1 RDW 12.2 Plt Count 214 MPV 9.1 L Immature Gran % (Auto) 0.1 Neut % (Auto) 69.1 Lymph % (Auto) 17.1 L [place] % (Auto) 12.4 H Eos % (Auto) 0.9 Baso % (Auto) 0.4 Lymph # (Auto) 1.2 Dixon # (Auto) 0.8 Eos # (Auto) 0.1 Baso # (Auto) 0.0 Abs Immat Gran (auto) 0.01 Absolute Neuts (auto) 4.6 Absolute Nucleated RBC 0.000 Nucleated RBC % (auto) 0.0 Anion Gap Estim Creat Clear Calc Estimated GFR Random Glucose Calcium Total Bilirubin Direct Bilirubin AST ALT Alkaline Phosphatase Troponin I High Sens 14.4 B-Natriuretic Peptide 328 H Total Protein Albumin Urine Color DK YELLOW Urine Appearance CLOUDY Urine pH 6.0 Ur Specific [place] 1.025 Urine Protein TRACE Urine Glucose (UA) NEG Urine Ketones NEG Urine Blood NEG Urine Nitrite NEG Ur Leukocyte Esterase 3+ H Urine RBC 5-9 H Urine WBC 30-49 H Ur Squamous Epith Cells 4+ Urine Bacteria 2+ Urine Mucus 4+ COVID-19 ([facility]) COVID-19 Clin Com 07/28/21 07:01 MCV MCH MCHC RDW Plt Count MPV Immature Gran % (Auto) Neut % (Auto) Lymph % (Auto) [place] % (Auto) Eos % (Auto) Baso % (Auto) Lymph # (Auto) Dixon # (Auto) Eos # (Auto) Baso # (Auto) Abs Immat Gran (auto) Absolute Neuts (auto) Absolute Nucleated RBC Nucleated RBC % (auto) Anion Gap 13 Estim Creat Clear Calc 69.2 Estimated GFR > 60 Random Glucose 100 Calcium 8.8 D Total Bilirubin Direct Bilirubin AST ALT Alkaline Phosphatase Troponin I High Sens B-Natriuretic Peptide Total Protein Albumin Urine Color Urine Appearance Urine pH Ur Specific [place] Urine Protein Urine Glucose (UA) Urine Ketones Urine Blood Urine Nitrite Ur Leukocyte Esterase Urine RBC Urine WBC Ur Squamous Epith Cells Urine Bacteria Urine Mucus COVID-19 ([facility]) COVID-19 Clin Com Assessment and Plan (1) Atrial fibrillation with RVR: Status: Acute (2) UTI (urinary tract infection): Status: Acute Assessment and Plan: 76-year-old female with past medical history of cardiomyopathy as well as AFib presents to the hospital with complaints of palpitations 1.AFib with RVR- most likely driven by UTI EKG shows AFib with RVR on cardizem drip-seems hr flacutaing 120's this morning , but drops to 60's will hold diltiazem drip , moniter tele continue Xarelto for anticoagulation and will resume home medications of carvedilol, diltiazem, amiodarone. 2. UTI- positive UA IV antibiotics-iv ceftriaxone day1 - follow cultures 3. hyperlipidemia - continue statin 4.history of heart failure - Appears euvolemic at this time, has elevated BNP - monitor respiratory status DVT prophylaxis: Xarelto Quality Stroke Does the patient have a stroke diagnosis?: No VTE Prior VTE?: No VTE Risk Level:: Medical - moderate - high VTE Device Contraindication: Treatment Not Indicated VTE Drug Contraindication: N/A - Med Ordered
--- NOTE | 2021-07-28 08:48 | PC.NURSE ---
HR 80's-120 afib via tele. BP 154/91. Cardizem drip increased to 15mg/hr.
--- NOTE | 2021-07-28 08:57 | PHA.MEDREC ---
med rec complete, no issues Pharmacy Consult ? Medication Reconciliation Pharmacy has completed the medication reconciliation.
[2021-07-28] MEDS: cefTRIAXone sodium 1 GM in 0.9 % Sodium Chloride 50 ML IV (09:23)
[2021-07-28] MEDS: 0.9 % Sodium Chloride Flush 3 ML SYRINGE IVFLUSH ×2 (09:23→17:33)
[2021-07-28] MEDS: Losartan Potassium 50 MG TABLET PO ×2 (10:20→19:58)
[2021-07-28] MEDS: Atorvastatin Calcium 40 MG TABLET PO (10:21)
[2021-07-28] MEDS: Amiodarone HCL 200 MG TABLET PO (10:21)
[2021-07-28] MEDS: Multivitamin TABLET 1 TAB PO (10:21)
[2021-07-28] MEDS: ondansetron HCL 4 MG/2 ML VIAL IVPUSH (11:11)
--- NOTE | 2021-07-28 11:18 | P.CONCA_ITS ---
History of Present Illness History of Present Illness Date of Service: 07/28/21 Requesting physician: Jorje Rice Chief complaint: Recurrent atrial fibrillation Narrative: I was requested to see Chiquita in cardiology consultation today for recurrent atrial fibrillation. She is elderly woman with prior history of atrial fibrillation which has been difficult to control and highly symptomatic when she is in atrial fibrillation. She has undergone ablation in the past and has been maintained on amiodarone does and has not been able to reduce amiodarone does because of recurrent atrial fibrillation. She gets significant symptoms related to her loss of AV synchrony. Finite she went to bed not feeling well, woke up Thursday morning with symptoms of not feeling well and noted her pulse to be elevated with heart rate into 120s and 130s beats per minute and knew that she was back in atrial fibrillation. She call my service and be try to manage this at home with extra dose of Cardizem. Her despite extra dose of Cardizem at home including her amiodarone, carvedilol and her usual dose of Cardizem she remained in atrial fibrillation rapid ventricular re sponse at which point I advised her to come to the emergency room for IV Cardizem drip. She did come to the emergency room still does not feel well was started on Cardizem bolus and then started on a drip. There was time when she briefly had slow down and was feeling better. She also noted to have UTI. Her BNP is elevated which is not unusual given her persistent atrial fibrillation. She denies overt orthopnea, PND, lightheadedness, syncope, chest pain. Unfortunately she did not get her dose of Xarelto last night. Review of Systems Constitutional: Constitutional: Denies body ache(s), Denies chills, Reports fatigue, Denies fever(s) and Reports lethargy Eyes: Eyes: Reports no additional eye complaints Cardiovascular: Cardiovascular: Denies chest pain, Reports rapid heart rate, Denies lightheadedness, Denies Loss of Consciousness and Reports dyspnea on exertion Respiratory: Respiratory: Reports no additional respiratory complaints and Reports dyspnea on exertion Gastrointestinal: Gastrointestinal: Reports no additional gastrointestinal complaints Genitourinary: Genitourinary: Reports no additional female genitourinary complaints Musculoskeletal: Musculoskeletal: Reports no additional musculoskeletal complaints Neurologic: Reports system reviewed and no additional complaints, except as documented Psychiatric: Psychiatric: Reports no additional psychiatric complaints Endocrine: Endocrine: Reports no additional endocrine complaints and Reports fatigue Hematologic/Lymphatic: Hematologic/Lymphatic: Reports no additional hematologic/lymphatic complaints [facility] Past Medical History Medical History Diastolic dysfunction History of cardiomyopathy History of cardioversion HTN (hypertension) Paroxysmal atrial fibrillation Pulmonary hypertension Family History Family History Father Cancer Mother No problems noted. Surgical History Surgical History History of back surgery Hx of cardiac cath Hx of hand surgery Social History Social History Advance Directives: No Advance Directives Information Provided: Yes Meds Allergies Allergy/AdvReac Type Severity Reaction Status Date / Time aspirin [ASPIRIN] Allergy Unknown RASH Verified 07/25/21 14:59 Sulfa (Sulfonamide Allergy Unknown RASH Verified 07/25/21 14:59 Antibiotics) [SULFA (SULFONAMIDE ANTIBIOTICS)] Active Medications: Current Medications Acetaminophen (Acetaminophen 325 Mg Tablet) 650 mg PO Q6H PRN PRN Reason: Pain, Mild (Pain Scale 1-3) Amiodarone HCl (Amiodarone Hcl 200 Mg Tablet) 200 mg PO DAILY [facility] Last Admin: 07/28/21 10:21 Dose: 200 mg Documented by: Atorvastatin Calcium (Atorvastatin Calcium 40 Mg Tablet) 40 mg PO DAILY [facility] Last Admin: 07/28/21 10:21 Dose: 40 mg Documented by: Carvedilol (Carvedilol 12.5 Mg Tablet) 12.5 mg PO BID ROSENDA; Protocol Last Admin: 07/28/21 10:22 Dose: Not Given Documented by: Diltiazem HCl (Diltiazem Hcl Cd 240 Mg Cap.Er.Deg) 240 mg PO DAILY ROSENDA; Protocol Last Admin: 07/28/21 10:22 Dose: Not Given Documented by: Docusate Sodium (Docusate Sodium 100 Mg Capsule) 100 mg PO DAILY PRN PRN Reason: Constipation Doxycycline Hyclate (Doxycycline Hyclate 100 Mg Tablet) 100 mg PO Q12H [facility]EN[facility] Last Admin: 07/28/21 10:20 Dose: 100 mg Documented by: Furosemide (Furosemide 20 Mg Tablet) 10 mg PO DAILY [facility]EN[facility]; Protocol Gabapentin (Gabapentin 300 Mg Capsule) 600 mg PO BEDTIME [facility] Diltiazem HCl 125 mg/ Sodium (Chloride) 125 mls @ 0 mls/hr IVCONT .Q0M [facility]; Protocol Last Titration: 07/28/21 11:10 Dose: Infused Documented by: Ceftriaxone Sodium 1 gm/ (Sodium Chloride) 50 mls @ 100 mls/hr IV Q24H [facility] Last Infusion: 07/28/21 10:20 Dose: Infused Documented by: Ketorolac Tromethamine (Ketorolac Tromethamine 0.5% Op 3 Ml Drops) 1 drop EYE-BOTH BID [facility] Last Admin: 07/28/21 10:21 Dose: 1 drop Documented by: Loratadine (Loratadine 10 Mg Tablet) 10 mg PO DAILY [facility] Losartan Potassium (Losartan Potassium 50 Mg Tablet) 50 mg PO BID [facility]; Protocol Last Admin: 07/28/21 10:20 Dose: 50 mg Documented by: Montelukast Sodium (Montelukast Sodium 10 Mg Tablet) 10 mg PO BEDTIME [facility] Multivitamins/Vitamin C (Multivitamin Tablet) 1 tab PO DAILY [facility] Last Admin: 07/28/21 10:21 Dose: 1 tab Documented by: Omeprazole (Omeprazole 20 Mg Capsule.) 20 mg PO BEDTIME [facility] Ondansetron HCl (Ondansetron Hcl 4 Mg/2 Ml Vial) 4 mg IVPUSH Q8H PRN PRN Reason: Nausea and Vomiting Sodium Chloride (0.9 % Sodium Chloride Flush 3 Ml Syringe) 3 ml IVFLUSH QSHIFT [facility] Last Admin: 07/28/21 09:23 Dose: 3 ml Documented by: Home Medications Medication Instructions Recorded Confirmed Last Taken Type gabapentin 300 mg capsule 600 mg PO BEDTIME 05/16/20 07/28/21 Unknown History losartan 100 mg tablet 50 mg PO BID tab 05/16/20 07/28/21 07/27/21 History montelukast 10 mg tablet 10 mg PO BEDTIME 05/16/20 07/28/21 Unknown History omeprazole 20 mg capsule,delayed 20 mg PO BEDTIME 05/16/20 07/28/21 Unknown History release fexofenadine 180 mg tablet 180 mg PO DAILY 06/21/21 07/28/21 07/27/21 History (Shea Allergy) ascorbic acid (vitamin C) 250 mg mg PO DAILY 07/28/21 Unknown History tablet cholecalciferol (vitamin D3) 10 mcg PO DAILY 07/28/21 Unknown History mcg (400 unit) capsule (Vitamin D3) coenzyme Q10 100 mg tablet mg PO DAILY 07/28/21 Unknown History diltiazem HCl 240 mg capsule,24 240 mg PO DAILY 07/28/21 07/28/21 07/27/21 History hr,extended release furosemide 20 mg tablet 10 mg PO QAM 07/28/21 07/28/21 07/27/21 History ketorolac 0.5 % eye drops 1 drp OPHTHALMIC (EYE) BID 07/28/21 07/28/21 07/27/21 History magnesium 250 mg tablet mg PO DAILY 07/28/21 Unknown History multivitamin 1 tab PO DAILY 07/28/21 07/28/21 07/27/21 History rivaroxaban 20 mg tablet (Xarelto) 20 mg PO DAILY@1730 07/28/21 07/28/21 Unknown History Physical Exam Vital Signs: Vital Signs: Last Vital Signs Temp 97.8 F 07/28/21 06:26 Pulse 105 H 07/28/21 10:51 Resp 18 07/28/21 08:47 BP 149/93 H 07/28/21 10:51 Pulse Ox 94 07/28/21 07:21 BMI result Body Mass Index 30.1 Const: General: cooperative, comfortable, no acute distress, alert, awake and anxious Nutritional Appearance: overweight Orientation/consciousness: patient oriented x3 Limitations: no limitations HENMT: Head: Yes normocephalic and Yes atraumatic Neck: Neck: Yes trachea midline, Yes supple and Yes no JVD Chest: Chest palpation & inspection: abnormal inspection of the chest kyphotic and scoliotic Resp: Effort & Inspection: normal respiratory effort Auscultation: no crackles, no rhonchi, no wheezes and diminished lung sounds Cardio: Jugular venous distension: no JVD Palpation: normal PMI Rate: tachycardic Rhythm: abnormal rhythm irregularly irregular Heart sounds: S1 normal heart sound present, S2 normal heart sound present, no click, no gallops, no murmurs and no rubs GI: Auscultation: normal bowel sounds Skin: General skin exam: no rashes or lesions noted and ecchymosis Neuro: General: patient oriented x3 and no focal motor deficits Extrem: General: Yes no clubbing, cyanosis or edema Objective Labs and Meds Result diagrams: 07/28/21 07:01 07/28/21 07:01 Lab results: Laboratory Results - last 24 hr 07/27/21 07/27/21 07/27/21 16:16 20:15 20:15 WBC 6.8 RBC 4.94 Hgb 16.4 H Hct 48.2 H MCV 97.6 MCH 33.2 H MCHC 34.0 RDW 12.2 Plt Count 246 MPV 8.8 L Immature Gran % (Auto) 0.3 Neut % (Auto) 63.1 Lymph % (Auto) 25.0 [place] % (Auto) 10.0 Eos % (Auto) 1.0 Baso % (Auto) 0.6 Lymph # (Auto) 1.7 [place] # (Auto) 0.7 Eos # (Auto) 0.1 Baso # (Auto) 0.0 Abs Immat Gran (auto) 0.02 Absolute Neuts (auto) 4.3 Absolute Nucleated RBC 0.000 Nucleated RBC % (auto) 0.0 Sodium 144 Potassium 3.8 Chloride 107 Carbon Dioxide 24 Anion Gap 17 BUN 18 H Creatinine 0.83 Estim Creat Clear Calc 60.0 Estimated GFR > 60 Random Glucose 124 H Calcium 9.8 Total Bilirubin 1.7 H Direct Bilirubin 0.6 H AST 56 H ALT 77 H Alkaline Phosphatase 101 Troponin I High Sens B-Natriuretic Peptide Total Protein 7.9 Albumin 4.8 Urine Color Urine Appearance Urine pH Ur Specific [place] Urine Protein Urine Glucose (UA) Urine Ketones Urine Blood Urine Nitrite Ur Leukocyte Esterase Urine RBC Urine WBC Ur Squamous Epith Cells Urine Bacteria Urine Mucus COVID-19 (KIANA) Negative COVID-19 Clin Com See Note 07/27/21 07/27/21 07/28/21 20:15 23:25 07:01 WBC 6.7 RBC 4.51 Hgb 14.9 Hct 43.7 MCV 96.9 MCH 33.0 MCHC 34.1 RDW 12.2 Plt Count 214 MPV 9.1 L Immature Gran % (Auto) 0.1 Neut % (Auto) 69.1 Lymph % (Auto) 17.1 L [place] % (Auto) 12.4 H Eos % (Auto) 0.9 Baso % (Auto) 0.4 Lymph # (Auto) 1.2 [place] # (Auto) 0.8 Eos # (Auto) 0.1 Baso # (Auto) 0.0 Abs Immat Gran (auto) 0.01 Absolute Neuts (auto) 4.6 Absolute Nucleated RBC 0.000 Nucleated RBC % (auto) 0.0 Sodium Potassium Chloride Carbon Dioxide Anion Gap BUN Creatinine Estim Creat Clear Calc Estimated GFR Random Glucose Calcium Total Bilirubin Direct Bilirubin AST ALT Alkaline Phosphatase Troponin I High Sens 14.4 B-Natriuretic Peptide 328 H Total Protein Albumin Urine Color DK YELLOW Urine Appearance CLOUDY Urine pH 6.0 Ur Specific [place] 1.025 Urine Protein TRACE Urine Glucose (UA) NEG Urine Ketones NEG Urine Blood NEG Urine Nitrite NEG Ur Leukocyte Esterase 3+ H Urine RBC 5-9 H Urine WBC 30-49 H Ur Squamous Epith Cells 4+ Urine Bacteria 2+ Urine Mucus 4+ COVID-19 (KIANA) COVID-19 vendome 1699 Com 07/28/21 07:01 WBC RBC Hgb Hct MCV MCH MCHC RDW Plt Count MPV Immature Gran % (Auto) Neut % (Auto) Lymph % (Auto) [place] % (Auto) Eos % (Auto) Baso % (Auto) Lymph # (Auto) [place] # (Auto) Eos # (Auto) Baso # (Auto) Abs Immat Gran (auto) Absolute Neuts (auto) Absolute Nucleated RBC Nucleated RBC % (auto) Sodium 142 Potassium 3.6 Chloride 110 H Carbon Dioxide 23 Anion Gap 13 BUN 21 H Creatinine 0.72 Estim Creat Clear Calc 69.2 Estimated GFR > 60 Random Glucose 100 Calcium 8.8 D Total Bilirubin Direct Bilirubin AST ALT Alkaline Phosphatase Troponin I High Sens B-Natriuretic Peptide Total Protein Albumin Urine Color Urine Appearance Urine pH Ur Specific [place] Urine Protein Urine Glucose (UA) Urine Ketones Urine Blood Urine Nitrite Ur Leukocyte Esterase Urine RBC Urine WBC Ur Squamous Epith Cells Urine Bacteria Urine Mucus COVID-19 ([facility]) COVID-19 Clin Com Imaging Radiologist's impression: Impressions Chest X-Ray 07/27/21 20:06 IMPRESSION: No acute cardiopulmonary findings. Assessment and Plan (1) Atrial fibrillation with RVR: Status: Acute Poorly tolerated recurrent atrial fibrillation without any obvious triggers. She does have UTI but no signs of sepsis. This most likely due to underlying progressive cardiac disease. She has done extremely well in the past with rhythm control. Currently her rate is not well controlled. I think she would benefit with synchronized cardioversion. However she did not get her dose of Xarelto for greater than 36 hours. Would therefore require ANGELA guided cardioversion. Unfortunately we do not have support for ANGELA today. Will most likely need to be done tomorrow. Continue IV Cardizem drip and maximize it. The rate remains difficult control give spice miller dose of digoxin 0.25 mg. Continue amiodarone and carvedilol. Please reinstate Xarelto and make sure she gets it. Continue manage her UTI. Will follow with you closely. Procedures Date of Service Date of Service: 07/28/21
[2021-07-28] MEDS: dilTIAZem HCL 125 MG in 0.9 % Sodium Chloride 100 ML 15 MG IVCONT (11:22)
--- NOTE | 2021-07-28 11:23 | PC.NURSE ---
Patient remains awake and alert. Skin PWD, resp even and non labored. speaking in full, clear sentences. Dr. Jerez to bedside meeting with patient and her daughter. Plan is to continue cardizem drip, unsure about time or plan for cardiversion at this time. Patient to remain NPO. Cardizem drip continued per Dr. Jerez Patient remains in afib via tele, HR 90's-120's.
[2021-07-28] MEDS: carvediloL 12.5 MG TABLET PO ×2 (12:13→19:57)
--- NOTE | 2021-07-28 12:19 | PC.NURSE ---
HR 74-90 via tele, cardizem drip titrated from 15mg/hr to 10mg/hr
--- NOTE | 2021-07-28 13:15 | PC.NURSE ---
HR 63-84 via tele. Primarily in 60's to 70's. remains in Afib. Holding cardizem drip at this time. Dr. Pyle at bedside and aware
[2021-07-28] MEDS: Rivaroxaban 20 MG TABLET PO (17:32)
[2021-07-28] MEDS: Gabapentin 300 MG CAPSULE 600 MG PO (19:58)
[2021-07-28] MEDS: Montelukast Sodium 10 MG TABLET PO (19:58)
[2021-07-28] MEDS: Omeprazole 20 MG CAPSULE.DR PO (19:59)
[2021-07-29] VITALS (16 sets, daily range): BP systolic 85–160; BP diastolic 39–100; PULSE 61–100; RESP 16–20; TEMP 36.1–36.9; O2SAT 93–99
[2021-07-29] MEDS: Amiodarone HCL 200 MG TABLET PO (08:09)
[2021-07-29] MEDS: Multivitamin TABLET 1 TAB PO (08:09)
[2021-07-29] MEDS: Loratadine 10 MG TABLET PO (08:09)
[2021-07-29] MEDS: Atorvastatin Calcium 40 MG TABLET PO (08:09)
[2021-07-29] MEDS: carvediloL 12.5 MG TABLET PO (08:09)
[2021-07-29] MEDS: cefTRIAXone sodium 1 GM in 0.9 % Sodium Chloride 50 ML IV (08:10)
[2021-07-29] MEDS: 0.9 % Sodium Chloride Flush 3 ML SYRINGE IVFLUSH ×3 (08:12→20:50)
--- NOTE | 2021-07-29 08:53 | MHC.CM.PN ---
CM MET WITH PT WHO REPORTS SHE LIVES ALONE SINCE HER RECENTLY PT DENIES HAVING ANY IN HOME SERVICES PT REPORTS SHE USES A CPAP AT NIGHT, SHE ALSO REPORTS HER DOCTOR MAY BE ORDERING HER A NEBULIZER SOON BUT THIS IS NOT YET CONFIRMED SHE HAS NOT REALLY HAD TIME TO DETERMINE IF IT IS BENEFICIAL. PT REPORTS SINCE HER HAS , HER DAUGHTER IS NOW HER HCP. SHE DOES HAVE A COPY AT HOME BUT CANNOT REMEMBER IF SHE ONLY LISTED ONE DAUGHTER, DOMINIQUE [phone], OR MORE. PT REPORTS SHE IS FULLY VACCINATED AGAINST COVID-19. SHE HAS RECEIVED BOTH DOSES OF PFIZER WELL THE BOOSTER IMM DELIVERED, COPY SENT TO [facility] CURRENT DC PLAN IS HOME WITH NO SERVICES FAMILY TO TRANSPORT
[2021-07-29] MEDS: dilTIAZem HCL CD 240 MG CAP.ER.DEG PO (09:42)
--- NOTE | 2021-07-29 09:59 | PC.NURSE ---
rn to rn report given to tennille licona aware of plan of care for chelle cardioversion.
[2021-07-29] MEDS: Lactated Ringers 1,000 ML 100 ML IVCONT (11:00)
--- NOTE | 2021-07-29 11:00 | CA_ITS ---
Transesophageal Echocardiogram Patient (Last, First, Middle): Chiquita Meeks P Gender: Female Date of : 1945 Age: 76 Procedure Date: 07/29/2021 Procedure Type: Transesophageal Echocardiogram Location: [place] Height: 165.1 cm Weight: 82.1 kg BSA: 1.90 m2 Heart Rate: bpm Refinisher: ALESSANDRO Referring MD: Silvino Can MD Symptoms: Atrial fibrillation Conclusion: ??? The left ventricular systolic function is moderately decreased. Difficult to quantify due to atrial fibrillation. ??? There is no evidence of a thrombus in the left atrial appendage. Findings Procedure Information The quality of the study was good. Consent was obtained prior to the procedure. The adult 3D probe was passed with no difficulty. Left Ventricle Normal left ventricular cavity size. The left ventricular systolic function is moderately decreased. Difficult to quantify due to atrial fibrillation. Right Ventricle Mildly increased right ventricular cavity size. There is normal right ventricular systolic function. Atria The left atrium is likely dilated. There is no evidence of a thrombus in the left atrial appendage. Aortic Valve There is a normal trileaflet aortic valve. There is no aortic valve stenosis. There is trace (trivial) aortic valve regurgitation. Mitral Valve There is mild mitral annular calcification. There is no mitral valve stenosis. Trace to mild mitral regurgitation. Pulmonic Valve The pulmonic valve was not well visualized. Tricuspid Valve There is mild tricuspid valve regurgitation. Great Vessels Possibly mild aortic arch plaque. Pericardium/Pleural There is no evidence of pericardial effusion. Prior Study Comparison Changes noted compared to prior study dated: 06/13/2021. LVEF appears diminished. Updated by Silvino Can on 01:45 PM with Status of Final Silvino Can MD electronically signed on 07/29/2021 1:45:50 PM with status of Final
--- NOTE | 2021-07-29 11:04 | P.CONAN_ITS ---
[facility] Active Problems Active Problems: All Active Problems (Updated 07/28/21 @ 06:00 by Jorje Rice MD) UTI (urinary tract infection) (Acute) Atrial fibrillation with RVR (Acute) Chronic cough (Acute) SOB (shortness of breath) on exertion (Acute) Paroxysmal atrial fibrillation (Acute) Diastolic dysfunction (Acute) Pulmonary hypertension (Acute) HTN (hypertension) (Acute) History of cardiomyopathy (Acute) Pulmonary nodules (Acute) Decreased diffusion capacity (Acute) Past Medical History Medical History Diastolic dysfunction History of cardiomyopathy History of cardioversion HTN (hypertension) Paroxysmal atrial fibrillation Pulmonary hypertension Family History Family History Father Cancer Mother No problems noted. Surgical History Surgical History History of back surgery Hx of cardiac cath Hx of hand surgery Social History Social History Patient Tobacco Use Status: Never used Tobacco Use of substances other than those prescribed or required for medical reasons: No Advance Directives: No Advance Directives Information Provided: Yes service: No Current occupational status: retired Meds Allergies Allergy/AdvReac Type Severity Reaction Status Date / Time aspirin [ASPIRIN] Allergy Unknown RASH Verified 07/25/21 14:59 Sulfa (Sulfonamide Allergy Unknown RASH Verified 07/25/21 14:59 Antibiotics) [SULFA (SULFONAMIDE ANTIBIOTICS)] Active Medications: Current Medications Acetaminophen (Acetaminophen 325 Mg Tablet) 650 mg PO Q6H PRN PRN Reason: Pain, Mild (Pain Scale 1-3) Amiodarone HCl (Amiodarone Hcl 200 Mg Tablet) 200 mg PO DAILY [facility] Last Admin: 07/29/21 08:09 Dose: 200 mg Documented by: Atorvastatin Calcium (Atorvastatin Calcium 40 Mg Tablet) 40 mg PO DAILY [facility] Last Admin: 07/29/21 08:09 Dose: 40 mg Documented by: Carvedilol (Carvedilol 12.5 Mg Tablet) 12.5 mg PO BID [facility]; Protocol Last Admin: 07/29/21 08:09 Dose: 12.5 mg Documented by: Diltiazem HCl (Diltiazem Hcl Cd 240 Mg Cap.Er.Deg) 240 mg PO DAILY [facility]; Protocol Last Admin: 07/29/21 09:42 Dose: 240 mg Documented by: Docusate Sodium (Docusate Sodium 100 Mg Capsule) 100 mg PO DAILY PRN PRN Reason: Constipation Doxycycline Hyclate (Doxycycline Hyclate 100 Mg Tablet) 100 mg PO Q12H [facility] Last Admin: 07/29/21 08:09 Dose: 100 mg Documented by: Furosemide (Furosemide 20 Mg Tablet) 10 mg PO DAILY [facility]; Protocol Gabapentin (Gabapentin 300 Mg Capsule) 600 mg PO BEDTIME [facility] Last Admin: 07/28/21 19:58 Dose: 600 mg Documented by: Ceftriaxone Sodium 1 gm/ (Sodium Chloride) 50 mls @ 100 mls/hr IV Q24H [facility] Last Infusion: 07/29/21 09:58 Dose: Infused Documented by: Ketorolac Tromethamine (Ketorolac Tromethamine 0.5% Op 3 Ml Drops) 1 drop EYE- BOTH BID [facility] Last Admin: 07/29/21 08:10 Dose: 1 drop Documented by: Loratadine (Loratadine 10 Mg Tablet) 10 mg PO DAILY [facility] Last Admin: 07/29/21 08:09 Dose: 10 mg Documented by: Losartan Potassium (Losartan Potassium 50 Mg Tablet) 50 mg PO BID [facility]; Protocol Last Admin: 07/29/21 08:11 Dose: Not Given Documented by: Montelukast Sodium (Montelukast Sodium 10 Mg Tablet) 10 mg PO BEDTIME [facility] Last Admin: 07/28/21 19:58 Dose: 10 mg Documented by: Multivitamins/Vitamin C (Multivitamin Tablet) 1 tab PO DAILY [facility] Last Admin: 07/29/21 08:09 Dose: 1 tab Documented by: Omeprazole (Omeprazole 20 Mg Capsule.) 20 mg PO BEDTIME [facility] Last Admin: 07/28/21 19:59 Dose: 20 mg Documented by: Ondansetron HCl (Ondansetron Hcl 4 Mg/2 Ml Vial) 4 mg IVPUSH Q8H PRN PRN Reason: Nausea and Vomiting Rivaroxaban (Rivaroxaban 20 Mg Tablet) 20 mg PO DAILY@1730 [facility] Last Admin: 07/28/21 17:32 Dose: 20 mg Documented by: Sodium Chloride (0.9 % Sodium Chloride Flush 3 Ml Syringe) 3 ml IVFLUSH QSHIFT [facility] Last Admin: 07/29/21 08:12 Dose: 3 ml Documented by: Home Medications Medication Instructions Recorded Confirmed Last Taken Type gabapentin 300 mg capsule 600 mg PO BEDTIME 05/16/20 07/28/21 Unknown History losartan 100 mg tablet 50 mg PO BID tab 05/16/20 07/28/21 07/27/21 History montelukast 10 mg tablet 10 mg PO BEDTIME 05/16/20 07/28/21 Unknown History omeprazole 20 mg capsule,delayed 20 mg PO BEDTIME 05/16/20 07/28/21 Unknown History release fexofenadine 180 mg tablet 180 mg PO DAILY 06/21/21 07/28/21 07/27/21 History (Shea Allergy) ascorbic acid (vitamin C) 250 mg mg PO DAILY 07/28/21 Unknown History tablet cholecalciferol (vitamin D3) 10 mcg PO DAILY 07/28/21 Unknown History mcg (400 unit) capsule (Vitamin D3) coenzyme Q10 100 mg tablet mg PO DAILY 07/28/21 Unknown History diltiazem HCl 240 mg capsule,24 240 mg PO DAILY 07/28/21 07/28/21 07/27/21 History hr,extended release furosemide 20 mg tablet 10 mg PO QAM 07/28/21 07/28/21 07/27/21 History ketorolac 0.5 % eye drops 1 drp OPHTHALMIC (EYE) BID 07/28/21 07/28/21 07/27/21 History magnesium 250 mg tablet mg PO DAILY 07/28/21 Unknown History multivitamin 1 tab PO DAILY 07/28/21 07/28/21 07/27/21 History rivaroxaban 20 mg tablet (Xarelto) 20 mg PO DAILY@1730 07/28/21 07/28/21 Unknown History Exam Exam Date and Time: July 29, 2021 1104 Height,Weight and Vital Signs: Height 5 ft 5 in Weight 82.1 kg Last Vital Signs Temp 98.1 F 07/29/21 09:39 Pulse 87 07/29/21 09:42 Resp 16 07/29/21 09:39 BP 160/100 H 07/29/21 09:42 Pulse Ox 98 07/29/21 09:39 Pertinent Lab Results Pertinent Lab Results: Laboratory Tests 07/27/21 07/27/21 07/27/21 16:16 20:15 20:15 WBC 6.8 RBC 4.94 Hgb 16.4 H Hct 48.2 H MCV 97.6 MCH 33.2 H MCHC 34.0 RDW 12.2 Plt Count 246 MPV 8.8 L Immature Gran % (Auto) 0.3 Neut % (Auto) 63.1 Lymph % (Auto) 25.0 [place] % (Auto) 10.0 Eos % (Auto) 1.0 Baso % (Auto) 0.6 Lymph # (Auto) 1.7 [place] # (Auto) 0.7 Eos # (Auto) 0.1 Baso # (Auto) 0.0 Abs Immat Gran (auto) 0.02 Absolute Neuts (auto) 4.3 Absolute Nucleated RBC 0.000 Nucleated RBC % (auto) 0.0 Sodium 144 Potassium 3.8 Chloride 107 Carbon Dioxide 24 Anion Gap 17 BUN 18 H Creatinine 0.83 Estim Creat Clear Calc 60.0 Estimated GFR > 60 Random Glucose 124 H Calcium 9.8 Total Bilirubin 1.7 H Direct Bilirubin 0.6 H AST 56 H ALT 77 H Alkaline Phosphatase 101 Troponin I High Sens B-Natriuretic Peptide Total Protein 7.9 Albumin 4.8 Urine Color Urine Appearance Urine pH Ur Specific [place] Urine Protein Urine Glucose (UA) Urine Ketones Urine Blood Urine Nitrite Ur Leukocyte Esterase Urine RBC Urine WBC Ur Squamous Epith Cells Urine Bacteria Urine Mucus COVID-19 ([facility]) Negative COVID-19 Clin Com See Note 07/27/21 07/27/21 07/28/21 20:15 23:25 07:01 WBC 6.7 RBC 4.51 Hgb 14.9 Hct 43.7 MCV 96.9 MCH 33.0 MCHC 34.1 RDW 12.2 Plt Count 214 MPV 9.1 L Immature Gran % (Auto) 0.1 Neut % (Auto) 69.1 Lymph % (Auto) 17.1 L [place] % (Auto) 12.4 H Eos % (Auto) 0.9 Baso % (Auto) 0.4 Lymph # (Auto) 1.2 [place] # (Auto) 0.8 Eos # (Auto) 0.1 Baso # (Auto) 0.0 Abs Immat Gran (auto) 0.01 Absolute Neuts (auto) 4.6 Absolute Nucleated RBC 0.000 Nucleated RBC % (auto) 0.0 Sodium Potassium Chloride Carbon Dioxide Anion Gap BUN Creatinine Estim Creat Clear Calc Estimated GFR Random Glucose Calcium Total Bilirubin Direct Bilirubin AST ALT Alkaline Phosphatase Troponin I High Sens 14.4 B-Natriuretic Peptide 328 H Total Protein Albumin Urine Color DK YELLOW Urine Appearance CLOUDY Urine pH 6.0 Ur Specific [place] 1.025 Urine Protein TRACE Urine Glucose (UA) NEG Urine Ketones NEG Urine Blood NEG Urine Nitrite NEG Ur Leukocyte Esterase 3+ H Urine RBC 5-9 H Urine WBC 30-49 H Ur Squamous Epith Cells 4+ Urine Bacteria 2+ Urine Mucus 4+ COVID-19 ([facility]) COVID-19 Clin Com 07/28/21 07:01 WBC RBC Hgb Hct MCV MCH MCHC RDW Plt Count MPV Immature Gran % (Auto) Neut % (Auto) Lymph % (Auto) [place] % (Auto) Eos % (Auto) Baso % (Auto) Lymph # (Auto) [place] # (Auto) Eos # (Auto) Baso # (Auto) Abs Immat Gran (auto) Absolute Neuts (auto) Absolute Nucleated RBC Nucleated RBC % (auto) Sodium 142 Potassium 3.6 Chloride 110 H Carbon Dioxide 23 Anion Gap 13 BUN 21 H Creatinine 0.72 Estim Creat Clear Calc 69.2 Estimated GFR > 60 Random Glucose 100 Calcium 8.8 D Total Bilirubin Direct Bilirubin AST ALT Alkaline Phosphatase Troponin I High Sens B-Natriuretic Peptide Total Protein Albumin Urine Color Urine Appearance Urine pH Ur Specific [place] Urine Protein Urine Glucose (UA) Urine Ketones Urine Blood Urine Nitrite Ur Leukocyte Esterase Urine RBC Urine WBC Ur Squamous Epith Cells Urine Bacteria Urine Mucus COVID-19 ([facility]) COVID-19 Clin Com Airway Mallampati Class: III TM Dist: >3cm Neck ROM: Full
--- NOTE | 2021-07-29 11:05 | P.CONAN_ITS ---
[facility] Active Problems Active Problems: All Active Problems (Updated 07/28/21 @ 06:00 by Jorje Rice MD) Decreased diffusion capacity (Acute) Pulmonary nodules (Acute) SOB (shortness of breath) on exertion (Acute) Chronic cough (Acute) Atrial fibrillation with RVR (Acute) UTI (urinary tract infection) (Acute) Paroxysmal atrial fibrillation (Acute) Diastolic dysfunction (Acute) Pulmonary hypertension (Acute) HTN (hypertension) (Acute) History of cardiomyopathy (Acute) Past Medical History Medical History (Updated 07/28/21 @ 06:00 by Jorje Rice MD) Diastolic dysfunction History of cardiomyopathy History of cardioversion HTN (hypertension) Paroxysmal atrial fibrillation Pulmonary hypertension Family History Family History Father Cancer Mother No problems noted. Family history of problems with anesthesia: No Surgical History Surgical History (Updated 07/29/21 @ 11:04 by Ivonne Canseco RN) History of back surgery Hx of cardiac cath Hx of hand surgery Hx of total hip arthroplasty History of Problems with Anesthesia: No Social History Social History Patient Tobacco Use Status: Never used Tobacco Use of substances other than those prescribed or required for medical reasons: No Advance Directives: No Advance Directives Information Provided: Yes service: No Current occupational status: retired Meds Allergies Allergy/AdvReac Type Severity Reaction Status Date / Time aspirin [ASPIRIN] Allergy Unknown RASH Verified 07/25/21 14:59 Sulfa (Sulfonamide Allergy Unknown RASH Verified 07/25/21 14:59 Antibiotics) [SULFA (SULFONAMIDE ANTIBIOTICS)] Active Medications: Current Medications Acetaminophen (Acetaminophen 325 Mg Tablet) 650 mg PO Q6H PRN PRN Reason: Pain, Mild (Pain Scale 1-3) Amiodarone HCl (Amiodarone Hcl 200 Mg Tablet) 200 mg PO DAILY [facility] Last Admin: 07/29/21 08:09 Dose: 200 mg Documented by: Atorvastatin Calcium (Atorvastatin Calcium 40 Mg Tablet) 40 mg PO DAILY [facility] Last Admin: 07/29/21 08:09 Dose: 40 mg Documented by: Carvedilol (Carvedilol 12.5 Mg Tablet) 12.5 mg PO BID [facility]; Protocol Last Admin: 07/29/21 08:09 Dose: 12.5 mg Documented by: Diltiazem HCl (Diltiazem Hcl Cd 240 Mg Cap.Er.Deg) 240 mg PO DAILY [facility]; Protocol Last Admin: 07/29/21 09:42 Dose: 240 mg Documented by: Docusate Sodium (Docusate Sodium 100 Mg Capsule) 100 mg PO DAILY PRN PRN Reason: Constipation Doxycycline Hyclate (Doxycycline Hyclate 100 Mg Tablet) 100 mg PO Q12H [facility] Last Admin: 07/29/21 08:09 Dose: 100 mg Documented by: Furosemide (Furosemide 20 Mg Tablet) 10 mg PO DAILY [facility]; Protocol Gabapentin (Gabapentin 300 Mg Capsule) 600 mg PO BEDTIME [facility] Last Admin: 07/28/21 19:58 Dose: 600 mg Documented by: Ceftriaxone Sodium 1 gm/ (Sodium Chloride) 50 mls @ 100 mls/hr IV Q24H [facility] Last Infusion: 07/29/21 09:58 Dose: Infused Documented by: Ketorolac Tromethamine (Ketorolac Tromethamine 0.5% Op 3 Ml Drops) 1 drop EYE- BOTH BID [facility] Last Admin: 07/29/21 08:10 Dose: 1 drop Documented by: Loratadine (Loratadine 10 Mg Tablet) 10 mg PO DAILY [facility] Last Admin: 07/29/21 08:09 Dose: 10 mg Documented by: Losartan Potassium (Losartan Potassium 50 Mg Tablet) 50 mg PO BID [facility]; Protocol Last Admin: 07/29/21 08:11 Dose: Not Given Documented by: Montelukast Sodium (Montelukast Sodium 10 Mg Tablet) 10 mg PO BEDTIME [facility] Last Admin: 07/28/21 19:58 Dose: 10 mg Documented by: Multivitamins/Vitamin C (Multivitamin Tablet) 1 tab PO DAILY [facility] Last Admin: 07/29/21 08:09 Dose: 1 tab Documented by: Omeprazole (Omeprazole 20 Mg Capsule.Dr) 20 mg PO BEDTIME [facility] Last Admin: 07/28/21 19:59 Dose: 20 mg Documented by: Ondansetron HCl (Ondansetron Hcl 4 Mg/2 Ml Vial) 4 mg IVPUSH Q8H PRN PRN Reason: Nausea and Vomiting Rivaroxaban (Rivaroxaban 20 Mg Tablet) 20 mg PO DAILY@1730 [facility] Last Admin: 07/28/21 17:32 Dose: 20 mg Documented by: Sodium Chloride (0.9 % Sodium Chloride Flush 3 Ml Syringe) 3 ml IVFLUSH QSHIFT [facility] Last Admin: 07/29/21 08:12 Dose: 3 ml Documented by: Home Medications Medication Instructions Recorded Confirmed Last Taken Type gabapentin 300 mg capsule 600 mg PO BEDTIME 05/16/20 07/28/21 Unknown History losartan 100 mg tablet 50 mg PO BID tab 05/16/20 07/28/21 07/27/21 History montelukast 10 mg tablet 10 mg PO BEDTIME 05/16/20 07/28/21 Unknown History omeprazole 20 mg capsule,delayed 20 mg PO BEDTIME 05/16/20 07/28/21 Unknown History release fexofenadine 180 mg tablet 180 mg PO DAILY 06/21/21 07/28/21 07/27/21 History (Shea Allergy) ascorbic acid (vitamin C) 250 mg mg PO DAILY 07/28/21 Unknown History tablet cholecalciferol (vitamin D3) 10 mcg PO DAILY 07/28/21 Unknown History mcg (400 unit) capsule (Vitamin D3) coenzyme Q10 100 mg tablet mg PO DAILY 07/28/21 Unknown History diltiazem HCl 240 mg capsule,24 240 mg PO DAILY 07/28/21 07/28/21 07/27/21 History hr,extended release furosemide 20 mg tablet 10 mg PO QAM 07/28/21 07/28/21 07/27/21 History ketorolac 0.5 % eye drops 1 drp OPHTHALMIC (EYE) BID 07/28/21 07/28/21 07/27/21 History magnesium 250 mg tablet mg PO DAILY 07/28/21 Unknown History multivitamin 1 tab PO DAILY 07/28/21 07/28/21 07/27/21 History rivaroxaban 20 mg tablet (Xarelto) 20 mg PO DAILY@1730 07/28/21 07/28/21 Unknown History Exam Exam Date and Time: July 29, 2021 1105 Height,Weight and Vital Signs: Height 5 ft 5 in Weight 82.1 kg Last Vital Signs Temp 98.1 F 07/29/21 09:39 Pulse 87 07/29/21 09:42 Resp 16 07/29/21 09:39 BP 160/100 H 07/29/21 09:42 Pulse Ox 98 07/29/21 09:39 Pertinent Lab Results Pertinent Lab Results: Laboratory Tests 07/27/21 07/27/21 07/27/21 16:16 20:15 20:15 WBC 6.8 RBC 4.94 Hgb 16.4 H Hct 48.2 H MCV 97.6 MCH 33.2 H MCHC 34.0 RDW 12.2 Plt Count 246 MPV 8.8 L Immature Gran % (Auto) 0.3 Neut % (Auto) 63.1 Lymph % (Auto) 25.0 [place] % (Auto) 10.0 Eos % (Auto) 1.0 Baso % (Auto) 0.6 Lymph # (Auto) 1.7 [place] # (Auto) 0.7 Eos # (Auto) 0.1 Baso # (Auto) 0.0 Abs Immat Gran (auto) 0.02 Absolute Neuts (auto) 4.3 Absolute Nucleated RBC 0.000 Nucleated RBC % (auto) 0.0 Sodium 144 Potassium 3.8 Chloride 107 Carbon Dioxide 24 Anion Gap 17 BUN 18 H Creatinine 0.83 Estim Creat Clear Calc 60.0 Estimated GFR > 60 Random Glucose 124 H Calcium 9.8 Total Bilirubin 1.7 H Direct Bilirubin 0.6 H AST 56 H ALT 77 H Alkaline Phosphatase 101 Troponin I High Sens B-Natriuretic Peptide Total Protein 7.9 Albumin 4.8 Urine Color Urine Appearance Urine pH Ur Specific [place] Urine Protein Urine Glucose (UA) Urine Ketones Urine Blood Urine Nitrite Ur Leukocyte Esterase Urine RBC Urine WBC Ur Squamous Epith Cells Urine Bacteria Urine Mucus COVID-19 ([facility]) Negative COVID-19 Clin Com See Note 07/27/21 07/27/21 07/28/21 20:15 23:25 07:01 WBC 6.7 RBC 4.51 Hgb 14.9 Hct 43.7 MCV 96.9 MCH 33.0 MCHC 34.1 RDW 12.2 Plt Count 214 MPV 9.1 L Immature Gran % (Auto) 0.1 Neut % (Auto) 69.1 Lymph % (Auto) 17.1 L [place] % (Auto) 12.4 H Eos % (Auto) 0.9 Baso % (Auto) 0.4 Lymph # (Auto) 1.2 [place] # (Auto) 0.8 Eos # (Auto) 0.1 Baso # (Auto) 0.0 Abs Immat Gran (auto) 0.01 Absolute Neuts (auto) 4.6 Absolute Nucleated RBC 0.000 Nucleated RBC % (auto) 0.0 Sodium Potassium Chloride Carbon Dioxide Anion Gap BUN Creatinine Estim Creat Clear Calc Estimated GFR Random Glucose Calcium Total Bilirubin Direct Bilirubin AST ALT Alkaline Phosphatase Troponin I High Sens 14.4 B-Natriuretic Peptide 328 H Total Protein Albumin Urine Color DK YELLOW Urine Appearance CLOUDY Urine pH 6.0 Ur Specific [place] 1.025 Urine Protein TRACE Urine Glucose (UA) NEG Urine Ketones NEG Urine Blood NEG Urine Nitrite NEG Ur Leukocyte Esterase 3+ H Urine RBC 5-9 H Urine WBC 30-49 H Ur Squamous Epith Cells 4+ Urine Bacteria 2+ Urine Mucus 4+ COVID-19 ([facility]) COVID-19 [facility] Com 07/28/21 07:01 WBC RBC Hgb Hct MCV MCH MCHC RDW Plt Count MPV Immature Gran % (Auto) Neut % (Auto) Lymph % (Auto) [place] % (Auto) Eos % (Auto) Baso % (Auto) Lymph # (Auto) [place] # (Auto) Eos # (Auto) Baso # (Auto) Abs Immat Gran (auto) Absolute Neuts (auto) Absolute Nucleated RBC Nucleated RBC % (auto) Sodium 142 Potassium 3.6 Chloride 110 H Carbon Dioxide 23 Anion Gap 13 BUN 21 H Creatinine 0.72 Estim Creat Clear Calc 69.2 Estimated GFR > 60 Random Glucose 100 Calcium 8.8 D Total Bilirubin Direct Bilirubin AST ALT Alkaline Phosphatase Troponin I High Sens B-Natriuretic Peptide Total Protein Albumin Urine Color Urine Appearance Urine pH Ur Specific [place] Urine Protein Urine Glucose (UA) Urine Ketones Urine Blood Urine Nitrite Ur Leukocyte Esterase Urine RBC Urine WBC Ur Squamous Epith Cells Urine Bacteria Urine Mucus COVID-19 ([facility]) COVID-19 Clin Com Assessment and Plan Assessment Anesthesia Assessment: Anesthesia Plan Discussed and Chart Reviewed Final Anesthetic Review Family History of Problems with Anesthesia: No History of Problems with Anesthesia: No NPO: Yes ASA Class: III Final Preanesthetic Review: No Changes in Pt Med Stat, Meds/Allgs Chart Reviewed, Consent Obtained/Reviewed and Anes Risks/Benef Reviewed Patient Risk: Intermediate Procedure Risk: Intermediate Anesthetic Plan Anesthetic Plan: GA Disposition: Standard PACU
--- NOTE | 2021-07-29 11:37 | MHC.SHP ---
Pre-Procedural Eval Section A Date of Service: 07/29/21 Section B Chief Complaint: Recurrent atrial fibrillation Allergies: Allergies Allergy/AdvReac Type Severity Reaction Status Date / Time aspirin [ASPIRIN] Allergy Unknown RASH Verified 07/25/21 14:59 Sulfa (Sulfonamide Allergy Unknown RASH Verified 07/25/21 14:59 Antibiotics) [SULFA (SULFONAMIDE ANTIBIOTICS)] Plan I have reviewed the history and physical and performed a pertinent physical examination on my patient. No changes have occurred unless specified.
--- NOTE | 2021-07-29 12:35 | ECG_ITS ---
Test Reason : s/p cardioversion Blood Pressure : / mmHG Vent. Rate : 064 BPM Atrial Rate : 064 BPM P-R Int : 172 ms QRS Dur : 088 ms QT Int : 446 ms P-R-T Axes : 058 010 027 degrees QTc Int : 460 ms Normal sinus rhythm Normal ECG When compared with ECG of 27-JUL-2021 20:17, Sinus rhythm has replaced Atrial fibrillation Nonspecific T wave abnormality no longer evident in Anterior leads Referred By: Quang Jolly Electronically Signed By:QUANG JOLLY
--- NOTE | 2021-07-29 12:57 | P.PNCA_ITS ---
Subjective Subjective Date of Service: 07/29/21 Interval history: Some shortness of breath, but otherwise OK. Review of Systems Review of Systems Yes all other systems are reviewed and are negative Cardiovascular: Reports as per HPI, Reports no additional cardiovascular complaints, Denies acrocyanosis, Denies cool extremities, Denies painful fingertips, Denies chest pain, Denies chest pain at rest, Denies diaphoresis, Denies syncope, Denies irregular heart rhythm, Denies claudication, Denies leg e tutu, Denies lightheadedness, Denies palpitations and Reports dyspnea Respiratory: Reports dyspnea Denies syncope Endocrine: Denies palpitations Physical Exam Vital Signs: Last Vital Signs Temp 97.8 F 07/29/21 12:12 Pulse 63 07/29/21 12:27 Resp 18 07/29/21 12:27 BP 110/66 07/29/21 12:27 Pulse Ox 97 07/29/21 12:27 BMI result Body Mass Index 30.1 Const General: no acute distress HENMT Other: Unremarkable Neck Neck: Yes normal visual inspection Chest Chest palpation & inspection: normal inspection of the chest Resp Auscultation: no crackles and no wheezes Cardio Palpation: normal PMI Heart sounds: S1 normal heart sound present, S2 normal heart sound present, no gallops, no murmurs and no rubs GI Palpation (GI): Soft to palpation Back/Spine/Pelvis Other: unremarkable Skin Lesions: other Neuro Cranial nerves: Yes Other cranial nerve findings present Extrem General: Yes other Psych Mental Status: other Objective Labs and Meds Result diagrams: 07/28/21 07:01 07/28/21 07:01 Progress Note: A&P Assessment and plan (1) Atrial fibrillation with RVR: Status: Acute Assessment and Plan: Due to missing her Xarelto dose, ANGELA was performed. That showed no left atrial appendage thrombus. Subsequently, we did a cardioversion and she converted back to normal sinus rhythm. At home, she is on amiodarone 200 mg daily and diltiazem ER 240 mg daily. We can add a small dose of Toprol-XL as well. Probably discharge tomorrow morning. Fall Risk Details Current Medications: Current Medications Acetaminophen (Acetaminophen 325 Mg Tablet) 650 mg PO Q6H PRN PRN Reason: Pain, Mild (Pain Scale 1-3) Amiodarone HCl (Amiodarone Hcl 200 Mg Tablet) 200 mg PO DAILY [facility] Last Admin: 07/29/21 08:09 Dose: 200 mg Documented by: Atorvastatin Calcium (Atorvastatin Calcium 40 Mg Tablet) 40 mg PO DAILY [facility] Last Admin: 07/29/21 08:09 Dose: 40 mg Documented by: Carvedilol (Carvedilol 12.5 Mg Tablet) 12.5 mg PO BID [facility]; Protocol Last Admin: 07/29/21 08:09 Dose: 12.5 mg Documented by: Diltiazem HCl (Diltiazem Hcl Cd 240 Mg Cap.Er.Deg) 240 mg PO DAILY [facility]; Protocol Last Admin: 07/29/21 09:42 Dose: 240 mg Documented by: Docusate Sodium (Docusate Sodium 100 Mg Capsule) 100 mg PO DAILY PRN PRN Reason: Constipation Doxycycline Hyclate (Doxycycline Hyclate 100 Mg Tablet) 100 mg PO Q12H [facility] Last Admin: 07/29/21 08:09 Dose: 100 mg Documented by: Furosemide (Furosemide 20 Mg Tablet) 10 mg PO DAILY [facility]; Protocol Gabapentin (Gabapentin 300 Mg Capsule) 600 mg PO BEDTIME [facility] Last Admin: 07/28/21 19:58 Dose: 600 mg Documented by: Ceftriaxone Sodium 1 gm/ (Sodium Chloride) 50 mls @ 100 mls/hr IV Q24H [facility] Last Infusion: 07/29/21 09:58 Dose: Infused Documented by: Lactated Ringer's (Lr) 1,000 mls @ 100 mls/hr IVCONT .Q10H [facility] Last Admin: 07/29/21 11:00 Dose: 100 mls/hr Documented by: Ketorolac Tromethamine (Ketorolac Tromethamine 0.5% Op 3 Ml Drops) 1 drop EYE- BOTH BID [facility] Last Admin: 07/29/21 08:10 Dose: 1 drop Documented by: Loratadine (Loratadine 10 Mg Tablet) 10 mg PO DAILY [facility] Last Admin: 07/29/21 08:09 Dose: 10 mg Documented by: Losartan Potassium (Losartan Potassium 50 Mg Tablet) 50 mg PO BID [facility]; Protocol Last Admin: 07/29/21 08:11 Dose: Not Given Documented by: Montelukast Sodium (Montelukast Sodium 10 Mg Tablet) 10 mg PO BEDTIME [facility] Last Admin: 07/28/21 19:58 Dose: 10 mg Documented by: Multivitamins/Vitamin C (Multivitamin Tablet) 1 tab PO DAILY [facility] Last Admin: 07/29/21 08:09 Dose: 1 tab Documented by: Omeprazole (Omeprazole 20 Mg Capsule.) 20 mg PO BEDTIME [facility] Last Admin: 07/28/21 19:59 Dose: 20 mg Documented by: Ondansetron HCl (Ondansetron Hcl 4 Mg/2 Ml Vial) 4 mg IVPUSH Q8H PRN PRN Reason: Nausea and Vomiting Rivaroxaban (Rivaroxaban 20 Mg Tablet) 20 mg PO DAILY@1730 [facility] Last Admin: 07/28/21 17:32 Dose: 20 mg Documented by: Sodium Chloride (0.9 % Sodium Chloride Flush 3 Ml Syringe) 3 ml IVFLUSH QSHIFT [facility] Last Admin: 07/29/21 08:12 Dose: 3 ml Documented by: Time Spent With Patient Time: Total time spent is greater than 50% in coordination of care (as documented) at patient's floor/unit and/or counseling patient: Time with patient: less than 15 minutes Progress Note: Quality Stroke Does the patient have a stroke diagnosis?: No Procedures Date of Service Date of Service: 07/29/21
--- NOTE | 2021-07-29 13:01 | HO.CARDIVERS ---
Cardioversion Procedure Note Cardioversion Date of Procedure: 07/29/2021 Ordering Provider: Performing Provider: Indication for Procedure: Atrial fibrillation with rapid rate Pre-Op Diagnosis: Atrial fibrillation with rapid rate Post-Op Diagnosis: Sinsu rhythm ANGELA findings (if ANGELA Performed): No evidence of MARILIN thrombus History: Symptomatic atrial fibrillation with rapid rate; referred for ANGELA due to missing Xarelto dose; subsequently, cardioversion. Consent: Informed consent obtained. Procedure: After informed consent was obtained, patient was taken to the OR. The patient was then positioned appropriately. Cardioversion pads were placed in anteroposterior position. ANGELA, reported separately did not show any left atrial appendage thrombus. Once under anesthesia, 120 joules of synchronized shock was administered. The rhythm converted from atrial fibrillation to sinus rhythm. Patient remained in sinus rhythm after the end of procedure. Complications: None Impression: Successsful cardioversion.
[2021-07-29] MEDS: Rivaroxaban 20 MG TABLET PO (16:53)
[2021-07-29] MEDS: Omeprazole 20 MG CAPSULE.DR PO (20:49)
[2021-07-29] MEDS: Gabapentin 300 MG CAPSULE 600 MG PO (20:49)
[2021-07-29] MEDS: Montelukast Sodium 10 MG TABLET PO (20:49)
[2021-07-30] VITALS: BP 122/58; PULSE 61; RESP 17; TEMP 36.2; O2SAT 93
[2021-07-30 03:52] VITALS: BP 134/61; PULSE 60; RESP 17; TEMP 36.3; O2SAT 94
[2021-07-30] MEDS: cefTRIAXone sodium 1 GM in 0.9 % Sodium Chloride 50 ML IV (06:08)
[2021-07-30 06:28] LABS: Alanine Aminotransferase 74 U/L (0-31); Albumin Level 3.5 g/dL (3.5-5.0); Anion Gap 12 (12-20); Aspartate Amino Transferase 62 U/L (5-31); Bilirubin Direct 0.4 mg/dL (0.0-0.5); Blood Urea Nitrogen 29 mg/dL (9-16); Calcium 8.7 mg/dL (8.4-10.2); Carbon Dioxide 25 mmol/L (22-29); Chloride 107 mmol/L (96-108); Estimated Glomerular Filt Rate > 60; Glucose Random 96 mg/dL (60-115); Potassium 3.6 mmol/L (3.3-5.1); Sodium 140 mmol/L (135-145); Total Protein 5.7 g/dL (6.5-8.0)
[2021-07-30 06:29] LABS: Alkaline Phosphatase 75 U/L (39-117)
[2021-07-30 07:59] VITALS: BP 143/60; PULSE 65; RESP 18; TEMP 36.2; O2SAT 95
[2021-07-30] MEDS: 0.9 % Sodium Chloride Flush 3 ML SYRINGE IVFLUSH ×2 (08:04→16:50)
[2021-07-30] MEDS: Atorvastatin Calcium 40 MG TABLET PO (08:04)
[2021-07-30] MEDS: Furosemide 20 MG TABLET 10 MG PO (08:04)
[2021-07-30 08:05] VITALS: BP 143/60; PULSE 65
[2021-07-30] MEDS: Loratadine 10 MG TABLET PO (08:05)
[2021-07-30] MEDS: Amiodarone HCL 200 MG TABLET PO (08:05)
[2021-07-30] MEDS: Losartan Potassium 50 MG TABLET PO (08:05)
[2021-07-30 08:06] VITALS: BP 143/60; PULSE 65
[2021-07-30] MEDS: Multivitamin TABLET 1 TAB PO (08:06)
[2021-07-30] MEDS: carvediloL 12.5 MG TABLET PO (08:06)
[2021-07-30] MEDS: dilTIAZem HCL CD 240 MG CAP.ER.DEG PO (08:06)
--- NOTE | 2021-07-30 09:03 | P.DS_ITS ---
DS: Providers Provider Date of Service: 07/30/21 Date of admission: 07/27/21 23:00 Primary care physician: Yair Huff MD Consults: 07/27/21 23:01 Consult to Cardiology Routine Consulting Provider: Franco Brennan Reason for consultation: palpitations Has provider been notified: Yes DS: Diagnosis Discharge Diagnosis (1) Atrial fibrillation with RVR: Status: Acute DS: Summary Hospital Course Hospital Course: Chief Complaint: palpitations This is a 76-year-old female with past medical history of AFib, diastolic heart failure, HTN, pulmonary hypertension who presents to the hospital with complaint s of palpitations.? Patient reports that she has been having on on palpitations for the past few days.? She has not had any dizziness, but felt tired, she feels that there is mice running in her chest, she denies any chest pain, denies any shortness of breath, she has been having dry heaves with no vomiting, no abdominal pain, no diarrhea constipation, no urinary symptoms and no lower extremity edema.? She called her manager army Dr. Brennan of recommended taking extra dose of her Cardizem which did not really resolve her symptoms, therefore decided to come to the hospital with recommendation from her manager army.? In the ED patient presented with a heart rate in the 110s-130s,? received 10 mg of IV Cardizem x2 but remained tachycardic, patient was started on diltiazem drip. Other vitals on arrival were significant for temp of 98.3?, respiratory rate of 20, blood pressure 156/118, satting 96 on room air Labs are significant for WBC count of 6.8, hemoglobin of 16.4, hematocrit 40.2, total bilirubin of 1.7, direct bili of 0.6, AST of 56 ALT of 77, BNP of 328, UA positive for leukocyte Estrace and WBC Chest x-ray shows no acute cardiopulmonary findings EKG showed AFib with RVR and inverted T-waves in inferior leads Patient will be admitted for further management [facility]. Patient was admitted due to AFIB with RVR and was treated with IV cardizem and ultimately underwent ANGELA cardioversion on 07/29/21 with succesful hinduism of sinus rythm. She will resume Cardizem 240 daily, Coreg 12.5 bid and Amiodarone will be increased to 200 bid until seen in follow up by cardiology, to continue Xarelto for stroke prevention. Of note she has been on Ceftriaxone for UTi and will switch to oral Ceftin 250 bid for total of 5 days. Time Spent with Patient Time attestation: Total time spent providing and/or coordinating discharge services: Discharge coordination time: Greater than 30 minutes Quality: Stroke Does the patient have a stroke diagnosis?: No Physical Exam Verdana 4l Vital Signs: Verdana 4d Verdana 4d Vital Signs: Verdana 4d Verdana 4Bd Last Vital Signs Verdana 4d Grades 1 Through 5 Teacher New 4d Grades 1 Through 5 Teacher New 4d Temp 97.2 F 07/30/21 07:59 Grades 1 Through 5 Teacher New 4d Pulse 65 07/30/21 08:06 Grades 1 Through 5 Teacher NewNew 4d Resp 18 07/30/21 07:59 BP 143/60 H 07/30/21 08:06 Pulse Ox 95 07/30/21 07:59 BMI result Body Mass Index 30.1 Const: Other: General: AO X 3, no acute distress Resp: CTA bilateral CVS: S1,S2,RRR GI: +BS, NT, no distention Skin: No rash Neuro: motor grossly intact Psych: appropriate affect DS: Data Data Completed and Pending Labs on day of discharge: Laboratory Results - last 24 hr 07/30/21 05:16 Sodium 140 Potassium 3.6 Chloride 107 Carbon Dioxide 25 Anion Gap 12 BUN 29 H Creatinine 0.86 Estim Creat Clear Calc 58.0 Estimated GFR > 60 Random Glucose 96 Calcium 8.7 Total Bilirubin 1.0 Direct Bilirubin 0.4 AST 62 H ALT 74 H Alkaline Phosphatase 75 D Total Protein 5.7 L D Albumin 3.5 D Preliminary micro results at discharge 07/28/21 08:46 Blood Culture - Preliminary Blood - Venous No growth after 24 hours. 07/28/21 08:51 Blood Culture - Preliminary Blood - Venous No growth after 24 hours. Discharge Plan Discharge Anticipated Discharge Date/Time: 07/30/21 08:59 Patient Disposition: Home, Self-Care Discharge Diagnosis: AFIB with RVR, UTI Referrals: Yair Huff MD [Primary Care Provider] - 1 Week Discharge Medications: New cefuroxime axetil 250 mg tablet 250 mg PO BID 3 Days Qty: 6 RF: 0 Continued atorvastatin 40 mg tablet 40 mg PO DAILY 90 Days Qty: 90 RF: 3 carvedilol 12.5 mg tablet 12.5 mg PO BID 90 Days Qty: 180 RF: 3 Xarelto 20 mg tablet 20 mg PO DAILY@1730 RF: 0 diltiazem HCl 240 mg Capsule,Extended Release 24 Hr 240 mg PO DAILY RF: 0 ketorolac 0.5 % Drops 1 drp OPHTHALMIC (EYE) BID RF: 0 furosemide 20 mg Tablet 10 mg PO QAM RF: 0 coenzyme Q10 100 mg Tablet PO DAILY RF: 0 multivitamin [Multi-Daily] Tablet 1 tab PO DAILY RF: 0 magnesium 250 mg Tablet PO DAILY RF: 0 ascorbic acid (vitamin C) 250 mg Tablet PO DAILY RF: 0 cholecalciferol (vitamin D3) [Vitamin D3] 10 mcg (400 unit) Capsule PO DAILY RF: 0 omeprazole 20 mg capsule,delayed release(DR/EC) 20 mg PO BEDTIME RF: 0 losartan 100 mg tablet 50 mg PO BID RF: 0 montelukast 10 mg tablet 10 mg PO BEDTIME RF: 0 gabapentin 300 mg capsule 600 mg PO BEDTIME RF: 0 fexofenadine [Shea Allergy] 180 mg tablet 180 mg PO DAILY RF: 0 Changed amiodarone 200 mg tablet 200 mg PO BID Qty: 90 RF: 1 Discontinued doxycycline hyclate 100 mg capsule 100 mg PO BID 10 Days Qty: 20 RF: 0 Discharge Orders: Discharge Order (Routine); Ordered 07/30/21 Ordered By: Buck Tompkins Diet: advance to usual diet Activity on Discharge: As tolerated Stand Alone Forms: Patient Portal Discharge page Care Plan Goals: prevent rehospitalization and reccurence of afib with rvr Health Concerns: chronic afib Plan of Treatment: Continue all your medication including Diltiazem, Coreg and note that amiodarone has been in creased to twice daily and follow up with cardiology Assessment: As above
--- NOTE | 2021-07-30 09:28 | MHC.CM.PN ---
PT MEDICALLY CLEARED FOR D/C TODAY HOME NO SERVICES, FAMILY FOR TRANSPORT
--- NOTE | 2021-07-30 09:41 | PM.PNCARD ---
Subjective Subjective Date of Service: 07/30/21 Interval history: Cardioverted yesterday. Feels better. Review of Systems Review of Systems Yes all other systems are reviewed and are negative Cardiovascular: Reports as per HPI, Reports no additional cardiovascular complaints, Denies acrocyanosis, Denies cool extremities, Denies painful fingertips, Denies chest pain, Denies chest pain at rest, Denies diaphoresis, Denies syncope, Denies irregular heart rhythm, Denies claudication, Denies leg edema, Denies lightheadedness, Denies palpitations and Denies dyspnea Respiratory: Denies dyspnea Denies syncope Endocrine: Denies palpitations Physical Exam Vital Signs: Last Vital Signs Temp 97.2 F 07/30/21 07:59 Pulse 65 07/30/21 08:06 Resp 18 07/30/21 07:59 BP 143/60 H 07/30/21 08:06 Pulse Ox 95 07/30/21 07:59 BMI result Body Mass Index 30.1 Const General: no acute distress HENMT Other: Unremarkable Neck Neck: Yes normal visual inspection Chest Chest palpation & inspection: normal inspection of the chest Resp Auscultation: no crackles and no wheezes Cardio Palpation: normal PMI Heart sounds: S1 normal heart sound present, S2 normal heart sound present, no gallops, no murmurs and no rubs GI Palpation (GI): Soft to palpation Back/Spine/Pelvis Other: unremarkable Skin Lesions: other Neuro Cranial nerves: Yes Other cranial nerve findings present Extrem General: Yes other Psych Mental Status: other Objective Labs and Meds Result diagrams: 07/28/21 07:01 07/30/21 05:16 Lab results: Laboratory Results - last 24 hr 07/30/21 05:16 Sodium 140 Potassium 3.6 Chloride 107 Carbon Dioxide 25 Anion Gap 12 BUN 29 H Creatinine 0.86 Estim Creat Clear Calc 58.0 Estimated GFR > 60 Random Glucose 96 Calcium 8.7 Total Bilirubin 1.0 Direct Bilirubin 0.4 AST 62 H ALT 74 H Alkaline Phosphatase 75 D Total Protein 5.7 L D Albumin 3.5 D Progress Note: A&P Assessment and plan (1) Atrial fibrillation with RVR: Status: Acute (2) Acute diastolic CHF (congestive heart failure): Status: Acute Assessment and Plan: ANGELA did not show any left atrial appendage thrombus and subsequently she underwent cardioversion yesterday. She remains in sinus rhythm and feels better. LVEF on ANGELA somewhat reduced but she was also in atrial fibrillation and hence difficult to assess. In any case, likely tachycardia mediated. Hence we can leave her on diltiazem at least for the time being. She is also on amiodarone but we can increase the dose to 200 mg b.i.d. for the near future. Continue carvedilol without changes. Slight LFT abnormality noted, and will need FU checks in office. Continue anticoagulation. She can be discharged today. We will arrange followup in the office next 2 weeks or so and at that time we can decide on long-term regimen. Fall Risk Details Current Medications: Current Medications Acetaminophen (Acetaminophen 325 Mg Tablet) 650 mg PO Q6H PRN PRN Reason: Pain, Mild (Pain Scale 1-3) Amiodarone HCl (Amiodarone Hcl 200 Mg Tablet) 200 mg PO DAILY [facility] Last Admin: 07/30/21 08:05 Dose: 200 mg Documented by: Atorvastatin Calcium (Atorvastatin Calcium 40 Mg Tablet) 40 mg PO DAILY [facility] Last Admin: 07/30/21 08:04 Dose: 40 mg Documented by: Carvedilol (Carvedilol 12.5 Mg Tablet) 12.5 mg PO BID [facility]; Protocol Last Admin: 07/30/21 08:06 Dose: 12.5 mg Documented by: Diltiazem HCl (Diltiazem Hcl Cd 240 Mg Cap.Er.Deg) 240 mg PO DAILY [facility]; Protocol Last Admin: 07/30/21 08:06 Dose: 240 mg Documented by: Docusate Sodium (Docusate Sodium 100 Mg Capsule) 100 mg PO DAILY PRN PRN Reason: Constipation Doxycycline Hyclate (Doxycycline Hyclate 100 Mg Tablet) 100 mg PO Q12H [facility] Last Admin: 07/30/21 08:06 Dose: 100 mg Documented by: Furosemide (Furosemide 20 Mg Tablet) 10 mg PO DAILY [facility]; Protocol Last Admin: 07/30/21 08:04 Dose: 10 mg Documented by: Gabapentin (Gabapentin 300 Mg Capsule) 600 mg PO BEDTIME [facility] Last Admin: 07/29/21 20:49 Dose: 600 mg Documented by: Ceftriaxone Sodium 1 gm/ (Sodium Chloride) 50 mls @ 100 mls/hr IV Q24H [facility] Last Infusion: 07/30/21 06:44 Dose: Infused Documented by: Ketorolac Tromethamine (Ketorolac Tromethamine 0.5% Op 3 Ml Drops) 1 drop EYE-BOTH BID [facility] Last Admin: 07/30/21 08:07 Dose: 1 drop Documented by: Loratadine (Loratadine 10 Mg Tablet) 10 mg PO DAILY [facility] Last Admin: 07/30/21 08:05 Dose: 10 mg Documented by: Losartan Potassium (Losartan Potassium 50 Mg Tablet) 50 mg PO BID [facility]; Protocol Last Admin: 07/30/21 08:05 Dose: 50 mg Documented by: Montelukast Sodium (Montelukast Sodium 10 Mg Tablet) 10 mg PO BEDTIME [facility] Last Admin: 07/29/21 20:49 Dose: 10 mg Documented by: Multivitamins/Vitamin C (Multivitamin Tablet) 1 tab PO DAILY [facility] Last Admin: 07/30/21 08:06 Dose: 1 tab Documented by: Omeprazole (Omeprazole 20 Mg Capsule.Dr) 20 mg PO BEDTIME [facility] Last Admin: 07/29/21 20:49 Dose: 20 mg Documented by: Ondansetron HCl (Ondansetron Hcl 4 Mg/2 Ml Vial) 4 mg IVPUSH Q8H PRN PRN Reason: Nausea and Vomiting Rivaroxaban (Rivaroxaban 20 Mg Tablet) 20 mg PO DAILY@1730 [facility] Last Admin: 07/29/21 16:53 Dose: 20 mg Documented by: Sodium Chloride (0.9 % Sodium Chloride Flush 3 Ml Syringe) 3 ml IVFLUSH QSHIFT [facility] Last Admin: 07/30/21 08:04 Dose: 3 ml Documented by: Time Spent With Patient Time: Total time spent is greater than 50% in coordination of care (as documented) at patient's floor/unit and/or counseling patient: Time with patient: less than 15 minutes Progress Note: Quality Stroke Does the patient have a stroke diagnosis?: No Procedures Date of Service Date of Service: 07/30/21
--- NOTE | 2021-07-30 09:58 | HO.POSTANES ---
Post Anesthesia Evaluation Post Anesthesia Evaluation Vital Signs: Vital Signs Temp Pulse Resp BP Pulse Ox 07/30/21 08:06 65 143/60 H 07/30/21 08:05 65 143/60 H 07/30/21 07:59 97.2 F 65 18 143/60 H 95 07/30/21 03:52 97.4 F 60 17 134/61 94 07/30/21 00:00 97.2 F 61 17 122/58 L 93 Anesthesia: Monitored Mental Status: Awake Pain Control: Satisfactory Nausea/Vomiting: None Hydration: Adequate Anesthesia-Related Issues: No Anes. Related Issues Comments: Pt was doing fine in PACU, but on the floor she feels a little shaky . It is unlikely, it would relate to anesthesia.
[2021-07-30 11:49] VITALS: BP 125/62; PULSE 65; RESP 16; TEMP 36.4; O2SAT 95
[2021-07-30] MEDS: Rivaroxaban 20 MG TABLET PO (16:49)
== END 2021-07-30 17:00 | disposition home or self-care (01) | DRG 309 ==
LOC: HO.ED 22:41 → HO.EDOVER 23:06 → HO.S3 07-29 08:39
PROVIDERS: Internal Medicine; Admitting Provider Internal Medicine; Emergency Provider Emergency Medicine; PCP Family Medicine; Visit Provider Internal Medicine
PROC: 5A2204Z Restoration of Cardiac Rhythm, Single (ICD-10-PCS; principal; 2021-07-29 11:30)
DX: I48.91 Unspecified atrial fibrillation (principal); N39.0 Urinary tract infection, site not specified; I50.32 Chronic diastolic (congestive) heart failure; I11.0 Hypertensive heart disease with heart failure; E78.5 Hyperlipidemia, unspecified; Z20.822 Contact with and (suspected) exposure to COVID-19; Z88.2 Allergy status to sulfonamides; Z88.6 Allergy status to analgesic agent; Z79.01 Long term (current) use of anticoagulants; Z79.899 Other long term (current) drug therapy
CPT/HCPCS: 36415; 71045; 80048; 80076; 81001; 81003; 83880; 84484; 85025; 87040; 87086; 87635; 92960; 93005; 93312; 96374; 96375; 99285; 99291; J0696; J2405

== ENCOUNTER 2021-08-08 13:11 | Outpatient (REF) | payer MEDICARE, SELFPAY ==
[2021-08-08 14:46] LABS: Alanine Aminotransferase 107 U/L (0-31); Aspartate Amino Transferase 80 U/L (5-31)
[2021-08-08 15:05] LABS: TSH reflex Free T4 3.26 uIU/mL (0.32-4.0)
== END 2021-08-08 13:12 | disposition home or self-care (01) ==
LOC: HO.LAB 13:11
PROVIDERS: PCP Family Medicine; Visit Provider Nurse Practitioner Family
DX: I48.0 Paroxysmal atrial fibrillation (principal); I11.9 Hypertensive heart disease without heart failure; Z86.79 Personal history of other diseases of the circulatory system
CPT/HCPCS: 36415; 84443; 84450; 84460; 93005; 99212

== ENCOUNTER → 2021-08-23 07:28 | Outpatient (REF) | payer MEDICARE, SELFPAY ==
--- NOTE | 2021-08-23 07:31 | CA_ITS ---
Transthoracic Echocardiogram Patient (Last, First, Middle): Chiquita Meeks P Gender: Female Date of : 1945 Age: 76 Procedure Date: 08/23/2021 Procedure Type: Transthoracic Echocardiogram Location: OP Height: 165.1 cm Weight: 84.82 kg BSA: 1.92 m2 Heart Rate: bpm BP: 134 / 76 mmHg Immigration Services Officer: RHIANNA Referring MD: Jud Martínez HAND QUILTERLazarus Symptoms: I42.9 - Cardiomyopathy, unspecified Study Quality: Fair ECG Rhythm: Sinus Conclusions: - The left ventricular systolic function is normal. The calculated ejection fraction is 60% by biplane method. Findings Left Ventricle Normal left ventricular cavity size. The left ventricular systolic function is normal. The calculated ejection fraction is 60% by biplane method. There is no evidence of regional wall motion abnormalities. Right Ventricle Normal right ventricular cavity size and systolic function. Prior Study Comparison Changes noted compared to prior study dated: 07/29/2021. Improved LVEF. Measurements 2D Linear Measurements IVSd: 1.11 0.6-0.9/0.6-1.0 cm LVIDd: 4.66 3.9-5.3/4.2-5.9 cm LVIDd Index: 2.43 2.4-3.2/2.2-3.1 cm/m2 LVIDs: 2.64 2.0-3.6 cm LVPWd: 1.01 0.7-1.1 cm LV Mass: 218.89 67-162/88-224 g LV Mass Index: 114.01 43-95/49-115 g/m2 2D Systolic Function EF 4C: 56.20 >55% EF 2C: 61.40 >55% EF BiP: 60.20 >55% Mitral Valve MV Pk E: 0.93 MV Decel Time: 235.00 E'Lateral: 9.14 E'Medial: 7.51 E/E' Med: 12.40 E/E' Lat: 10.20 PHT: 69.00 MVA PHT: 3.19 Decel Harris: 3.95 Diastolic Function MV Pk E: 0.93 E'Medial: 7.51 E/E' Med: 12.40 E' Laterial: 9.14 E/E' Lat: 10.20 Right Ventricle TAPSE (mm): 22.10 TVS' Toney: 14.00 Updated in Other Vendor System with Status of Final Silvino Can MD electronically signed on 08/25/2021 1:16:35 PM with status of Final
== END ==
LOC: HO.CARD 07:28
PROVIDERS: Visit Provider Nurse Practitioner Family
DX: I42.9 Cardiomyopathy, unspecified (principal)
CPT/HCPCS: 93308

== ENCOUNTER 2021-09-09 09:16 | Outpatient (REF) | payer MEDICARE, SELFPAY ==
[2021-09-09 10:52] LABS: Alanine Aminotransferase 62 U/L (0-31); Aspartate Amino Transferase 41 U/L (5-31)
[2021-09-09 11:01] LABS: Anion Gap 12 (12-20); Blood Urea Nitrogen 18 mg/dL (9-16); Carbon Dioxide 27 mmol/L (22-29); Chloride 109 mmol/L (96-108); Estimated Glomerular Filt Rate > 60; Potassium 4.5 mmol/L (3.3-5.1); Sodium 143 mmol/L (135-145)
[2021-09-09 11:02] LABS: Thyroid Stimulating Hormone 3.32 uIU/mL (0.32-4.0)
== END 2021-09-09 09:17 | disposition home or self-care (01) ==
LOC: HO.LAB 09:16
PROVIDERS: Absent Provider Family Medicine; PCP Family Medicine; Visit Provider Nurse Practitioner Family
DX: I10 Essential (primary) hypertension (principal); I42.9 Cardiomyopathy, unspecified; I48.0 Paroxysmal atrial fibrillation
CPT/HCPCS: 36415; 80051; 82565; 84443; 84450; 84460; 84520

== ENCOUNTER 2021-09-16 09:00 | Outpatient (REF) | payer MEDICARE, SELFPAY ==
[2021-09-16 10:43] LABS: B Type Natriuretic Peptide 313 pg/mL (<100)
== END 2021-09-16 09:01 | disposition home or self-care (01) ==
LOC: HO.LAB 09:00
PROVIDERS: PCP Family Medicine; Visit Provider Internal Medicine Cardiovascular Disease
DX: I42.9 Cardiomyopathy, unspecified (principal); R06.02 Shortness of breath; I48.0 Paroxysmal atrial fibrillation; I27.20 Pulmonary hypertension, unspecified
CPT/HCPCS: 36415; 83880; 93005; 99212

== ENCOUNTER 2021-09-30 10:17 | Outpatient (REF) | payer MEDICARE, SELFPAY ==
[2021-09-30 12:08] LABS: B Type Natriuretic Peptide 183 pg/mL (<100)
[2021-09-30 12:13] LABS: Anion Gap 9 (12-20); Blood Urea Nitrogen 24 mg/dL (9-16); Calcium 9.3 mg/dL (8.4-10.2); Carbon Dioxide 28 mmol/L (22-29); Chloride 110 mmol/L (96-108); Estimated Glomerular Filt Rate 59; Glucose Random 128 mg/dL (60-115); Potassium 3.8 mmol/L (3.3-5.1); Sodium 143 mmol/L (135-145)
== END 2021-09-30 10:18 | disposition home or self-care (01) ==
LOC: HO.LAB 10:17
PROVIDERS: PCP Family Medicine; Visit Provider Internal Medicine Cardiovascular Disease
DX: I42.9 Cardiomyopathy, unspecified (principal)
CPT/HCPCS: 36415; 80048; 83880

== ENCOUNTER 2021-10-22 13:37 | Outpatient (REF) | payer MEDICARE, SELFPAY ==
[2021-10-22 14:49] LABS: Hematocrit 40.4 % (37.0-47.0); Hemoglobin 13.5 g/dl (12.0-16.0); Mean Corpuscular HGB Conc 33.4 g/dl (31.0-35.0); Mean Corpuscular Hemoglobin 32.7 pg (27.0-33.0); Mean Corpuscular Volume 97.8 fL (80.0-98.0); Mean Platelet Volume 9.2 fL (9.4-12.3); Platelet Count 193 X10*3/uL (160-400); Red Blood Count 4.13 X10*6/uL (4.20-5.50); Red Cell Distribution Width 12.1 % (11.0-16.0); White Blood Count 6.1 X10*3/uL (4.8-10.8)
[2021-10-22 14:57] LABS: INTERNATIONAL NORM RATIO 1.5 (0.9-1.1)
[2021-10-22 15:11] LABS: Anion Gap 15 (12-20); Blood Urea Nitrogen 20 mg/dL (9-16); Calcium 9.8 mg/dL (8.4-10.2); Carbon Dioxide 22 mmol/L (22-29); Chloride 108 mmol/L (96-108); Estimated Glomerular Filt Rate > 60; Glucose Random 112 mg/dL (60-115); Potassium 4.2 mmol/L (3.3-5.1); Sodium 141 mmol/L (135-145)
== END 2021-10-22 13:38 | disposition home or self-care (01) ==
LOC: HO.LAB 13:37
PROVIDERS: PCP Family Medicine; Visit Provider Internal Medicine Cardiovascular Disease
DX: R06.02 Shortness of breath (principal); I42.9 Cardiomyopathy, unspecified; I48.0 Paroxysmal atrial fibrillation; I27.20 Pulmonary hypertension, unspecified
CPT/HCPCS: 36415; 80048; 85027; 85610; 93005; 99212

== ENCOUNTER 2021-11-06 09:06 | Outpatient (REF) | payer MEDICARE, SELFPAY ==
[2021-11-06 10:39] LABS: Alanine Aminotransferase 104 U/L (0-31); Alkaline Phosphatase 99 U/L (39-117); Anion Gap 8 (12-20); Aspartate Amino Transferase 79 U/L (5-31); Bilirubin Total 1.1 mg/dL (0.0-1.0); Blood Urea Nitrogen 22 mg/dL (9-16); Calcium 9.5 mg/dL (8.4-10.2); Carbon Dioxide 28 mmol/L (22-29); Chloride 108 mmol/L (96-108); Estimated Glomerular Filt Rate 58; Glucose Random 123 mg/dL (60-115); Potassium 4.4 mmol/L (3.3-5.1); Sodium 140 mmol/L (135-145); Total Protein 6.6 g/dL (6.5-8.0)
[2021-11-06 10:45] LABS: TSH reflex Free T4 3.22 uIU/mL (0.32-4.0)
== END 2021-11-06 09:07 | disposition home or self-care (01) ==
LOC: HO.LAB 09:06
PROVIDERS: PCP Family Medicine; Visit Provider Internal Medicine Cardiovascular Disease
DX: I48.0 Paroxysmal atrial fibrillation (principal)
CPT/HCPCS: 36415; 80053; 84443

== ENCOUNTER → 2021-11-20 13:35 | Outpatient (BNVA) | payer MEDICARE, SELFPAY | PROVIDERS: PCP Family Medicine; Referring Provider Family Medicine; Visit Provider Nurse Practitioner Family | DX: I48.0 Paroxysmal atrial fibrillation (principal); I27.20 Pulmonary hypertension, unspecified; R06.02 Shortness of breath; Z98.890 Other specified postprocedural states | CPT/HCPCS: 93005; 99212 ==

== ENCOUNTER 2021-11-27 14:20 | Outpatient (REF) | payer MEDICARE, SELFPAY ==
[2021-11-27 15:13] LABS: MANUAL DIFF FLAG NO
[2021-11-27 15:17] LABS: Basophils Percent Auto 0.5 % (0-2); Eosinophils Absolute Auto 0.1 X10*3/uL (0.0-0.4); Eosinophils Percent Auto 1.1 % (0-4); Hematocrit 43.5 % (37.0-47.0); Hemoglobin 14.4 g/dl (12.0-16.0); Imm Gran Abs Auto 0.04 X10*3/uL (0.00-0.03); Imm Gran Pct Auto 0.5 % (0.0-0.4); Lymphocytes Absolute Auto 1.8 X10*3/uL (1.2-4.9); Lymphocytes Percent Auto 22.3 % (20-40); Mean Corpuscular HGB Conc 33.1 g/dl (31.0-35.0); Mean Corpuscular Hemoglobin 32.4 pg (27.0-33.0); Mean Corpuscular Volume 97.8 fL (80.0-98.0); Mean Platelet Volume 8.9 fL (9.4-12.3); Monocytes Absolute Auto 0.8 X10*3/uL (0.1-1.2); Monocytes Percent Auto 10.5 % (2-11); Neutrophils Absolute Auto 5.1 x10*3/uL (2.0-8.3); Neutrophils Percent Auto 65.1 % (45-73); Platelet Count 221 X10*3/uL (160-400); Red Blood Count 4.45 X10*6/uL (4.20-5.50); White Blood Count 7.8 X10*3/uL (4.8-10.8)
[2021-11-27 15:19] LABS: INTERNATIONAL NORM RATIO 1.2 (0.9-1.1); Prothrombin Time 13.6 SEC (9.9-13.0)
[2021-11-27 15:35] LABS: Anion Gap 14 (12-20); Blood Urea Nitrogen 28 mg/dL (9-16); Calcium 9.9 mg/dL (8.4-10.2); Carbon Dioxide 27 mmol/L (22-29); Chloride 103 mmol/L (96-108); Estimated Glomerular Filt Rate 45; Glucose Random 117 mg/dL (60-115); Sodium 139 mmol/L (135-145)
== END 2021-11-27 14:21 | disposition home or self-care (01) ==
LOC: HO.LAB 14:20
PROVIDERS: Internal Medicine Cardiovascular Disease; PCP Family Medicine; Visit Provider Internal Medicine Pulmonary Disease
DX: I48.0 Paroxysmal atrial fibrillation (principal); R06.02 Shortness of breath; R91.8 Other nonspecific abnormal finding of lung field
CPT/HCPCS: 36415; 80048; 85025; 85610; 99212

== ENCOUNTER 2021-12-17 14:09 | Outpatient (REF) | payer MEDICARE, SELFPAY ==
[2021-12-17 15:49] LABS: Anion Gap 14 (12-20); Blood Urea Nitrogen 31 mg/dL (9-16); Calcium 9.2 mg/dL (8.4-10.2); Carbon Dioxide 25 mmol/L (22-29); Chloride 105 mmol/L (96-108); Estimated Glomerular Filt Rate 42; Glucose Random 141 mg/dL (60-115); Potassium 4.1 mmol/L (3.3-5.1); Sodium 140 mmol/L (135-145)
[2021-12-17 15:55] LABS: B Type Natriuretic Peptide 208 pg/mL (<100)
== END 2021-12-17 14:10 | disposition home or self-care (01) ==
LOC: HO.LAB 14:09
PROVIDERS: PCP Family Medicine; Referring Provider Family Medicine; Visit Provider Internal Medicine Cardiovascular Disease
DX: I50.32 Chronic diastolic (congestive) heart failure (principal); I48.0 Paroxysmal atrial fibrillation
CPT/HCPCS: 36415; 80048; 83880; 93005; 99212

== ENCOUNTER 2021-12-25 14:57 | Outpatient (REF) | payer MEDICARE, SELFPAY ==
--- NOTE | ~2021-12-25 | CT_ITS ---
EXAMINATION: CT CHEST WITHOUT CONTRAST CLINICAL INFORMATION: Abnormal lung findings. COMPARISON: CT chest 03/04/2021. TECHNIQUE: Multidetector volumetric CT imaging of the chest was done. Axial MIP volume rendering provided. Sagittal and coronal reformatted images were obtained. This CT examination was performed using dose optimization techniques as appropriate, variously including the following: *Automated exposure control *Adjustment of mA and/or kV according to patient size (this includes techniques or standardized protocols for targeted exams where dose is matched to indication/reason for exam; i.e. extremities or head) *Use of iterative reconstruction technique DLP: 178 mGy-cm FINDINGS: SOLAR APPLICATIONS DEVELOPMENT ENGINEER: Unremarkable broadcast operations director exam. LUNGS: There is minimal bilateral apical pleural thickening and parenchymal scarring, stable. Again visualized is a tumor nodule right upper lobe axial image 140/9, new right upper lobe ground-glass attenuation axial image 168 through 177/9 right parahilar region. Subpleural thickening in the right upper lobe posterior laterally measuring 2 cm axial image 209/9. Previously seen 6 x 13 mm peripheral parenchymal density in right middle lobe has resolved. Mild atelectatic changes are seen right middle lobe and the lingula as before. Dependent atelectasis seen in both lower lobes. MEDIASTINUM: The thyroid lobes are symmetrical and normal. The central trachea and bronchi are widely patent. No abnormal size mediastinal or hilar lymphadenopathy seen. There are coronary artery calcifications. No pericardial effusion seen. PLEURA: There is no pleural effusion. No pleural mass or thickening. AXILLA: The axilla and the chest wall appear unremarkable. UPPER ABDOMEN: Visualized liver, spleen, pancreas and bilateral adrenal glands are unremarkable. There is exophytic cyst in upper pole right kidney. There is colonic diverticulosis in right colon OSSEOUS STRUCTURES: Thoracic kyphosis. There is mild degenerative disc changes throughout dorsal spine. No lytic process. CT/CT chest wo con IMPRESSION: Previously seen patchy opacity in the right middle lobe peripherally based has resolved. Rest of the pulmonary nodules are stable. There is a new ground-glass attenuation seen in the right upper lobe parahilar region. No abnormal mediastinal lymph nodes. Fleischner guidelines were followed.
== END 2021-12-25 14:58 | disposition home or self-care (01) ==
LOC: HO.CT 14:57
PROVIDERS: Visit Provider Internal Medicine Pulmonary Disease
DX: R91.8 Other nonspecific abnormal finding of lung field (principal)
CPT/HCPCS: 71250

== ENCOUNTER 2022-01-14 13:51 | Outpatient (REF) | payer MEDICARE, SELFPAY ==
--- NOTE | ~2022-01-14 | US_ITS ---
EXAMINATION: US PELVIS CLINICAL INFORMATION: Abnormal uterine bleeding COMPARISON: None TECHNIQUE: Ultrasound of the pelvis is performed using both transabdominal and transvaginal transducers along with Doppler. Transvaginal imaging is performed due to inadequate visualization transabdominally. FINDINGS: Transabdominal and transvaginal images are both severely limited. The uterus is anteverted and measures 9.3 x 4 x 3.7 cm in dimension. There is a 3.5 x 2.3 x 3.9 cm partially calcified lesion in the posterior uterine body suggestive of a fibroid. The endometrium is not well visualized. The endometrium does not appear thickened measuring 0.3 cm. The ovaries are not seen. There is no fluid in the pelvis. US/US pelvic and transvaginal IMPRESSION: Very limited exam. Probable 3.5 x 2.3 x 3.9 cm partially calcified right posterior uterine body fibroid.
== END 2022-01-14 13:52 | disposition home or self-care (01) ==
LOC: HO.HMGCX 13:51
PROVIDERS: Visit Provider Family Medicine
DX: N93.8 Other specified abnormal uterine and vaginal bleeding (principal)
CPT/HCPCS: 76830; 76856

== ENCOUNTER → 2022-02-04 09:36 | Outpatient (BNVA) | payer MEDICARE, SELFPAY | PROVIDERS: PCP Family Medicine; Referring Provider Family Medicine; Visit Provider Internal Medicine Cardiovascular Disease | DX: I48.0 Paroxysmal atrial fibrillation (principal); R06.02 Shortness of breath; I50.32 Chronic diastolic (congestive) heart failure; I27.20 Pulmonary hypertension, unspecified | CPT/HCPCS: 99212 ==

== ENCOUNTER → 2022-02-05 15:10 | Outpatient (BNVA) | payer MEDICARE, SELFPAY | PROVIDERS: PCP Family Medicine; Visit Provider Internal Medicine Pulmonary Disease | DX: R94.2 Abnormal results of pulmonary function studies (principal); R91.8 Other nonspecific abnormal finding of lung field; R06.00 Dyspnea, unspecified; I27.20 Pulmonary hypertension, unspecified | CPT/HCPCS: 99212 ==

== ENCOUNTER 2022-02-06 09:41 | Outpatient (REF) | payer MEDICARE, SELFPAY ==
--- NOTE | ~2022-02-06 | XR_ITS ---
EXAMINATION: XR HIP, LEFT, WITH PELVIS CLINICAL INFORMATION: AP pelvis and left hip. COMPARISON: None TECHNIQUE: Two views of the left hip. 1 view AP pelvis. FINDINGS: AP Pelvis: There is normal symmetry of both hip joints. 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 The left hip joint space is normal. No fracture or bony abnormality involving pelvis. There is large amount of stool in the colon. There is a radiopaque density in the midpelvis question phlebolith versus bladder calculi. Left Hip: The hip joint space is maintained. No bony erosive changes, loose bodies, fracture or dislocation seen. The soft tissues are normal. XR/XR hip LT w PEL1V IMPRESSION: Unremarkable left hip and AP pelvis exam. 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
== END 2022-02-06 09:42 | disposition home or self-care (01) ==
LOC: HO.XRAY 09:41
PROVIDERS: PCP Family Medicine; Visit Provider Physical Medicine & Rehabilitation
DX: Z13.89 Encounter for screening for other disorder (principal); Z96.641 Presence of right artificial hip joint
CPT/HCPCS: 73502

== ENCOUNTER → 2022-05-06 09:35 | Outpatient (BNVA) | payer MEDICARE, SELFPAY | PROVIDERS: PCP Family Medicine; Referring Provider Family Medicine; Visit Provider Internal Medicine Cardiovascular Disease | DX: I50.32 Chronic diastolic (congestive) heart failure (principal); I48.0 Paroxysmal atrial fibrillation | CPT/HCPCS: 93005; 99212 ==

== ENCOUNTER 2022-07-11 13:53 | Outpatient (REF) | payer MEDICARE, SELFPAY ==
--- NOTE | ~2022-07-11 | US_ITS ---
EXAMINATION: US PELVIS COMPLETE CLINICAL INFORMATION: History of uterine fibroids. COMPARISON: Pelvic ultrasound dated 01/14/2022. TECHNIQUE: Transabdominal and transvaginal imaging were performed. FINDINGS: The uterus is of normal size and heterogeneous in echotexture, measuring 6.0 x 3.6 x 4.7 cm. The uterus is retroverted. A regular, homogeneous endometrium is identified measuring 0.3 cm. FIBROIDS: There are 4 fibroids seen. 1. Location: Mid posterior body, myometrial. Size: 2.3 x 1.9 x 2.5 cm. Prior: Not seen. Fibroid characteristics: Hyperechoic. 2. Location: Distal posterior body, myometrial. Size: 2.9 x 2.9 x 2.9 cm. Fibroid characteristics: Heterogeneous echotexture, with calcifications. 3. Location: Distal anterior body, myometrial. Size: 1.9 x 1.9 x 1.8 cm. Prior: Not seen. Fibroid characteristics: Heterogeneous echotexture, with calcifications. 4. Location: Mid posterior body, myometrial. Size: 2.1 x 2.0 x 2.1 cm. Prior: Not seen. Fibroid characteristics: Heterogeneous echotexture, with calcifications. Both ovaries are nonvisualized. There is no pelvic free fluid. No adnexal mass is seen. US/US pelvic and transvaginal IMPRESSION: 1. Multiple uterine fibroids are noted, as detailed. 2. The bilateral ovaries are nonvisualized.
[2022-07-11 16:25] LABS: MANUAL DIFF FLAG NO
[2022-07-11 16:31] LABS: Basophils Absolute Auto 0.1 X10*3/uL (0.0-0.2); Basophils Percent Auto 0.8 % (0-2); Eosinophils Absolute Auto 0.2 X10*3/uL (0.0-0.4); Eosinophils Percent Auto 2.1 % (0-4); Hematocrit 42.8 % (37.0-47.0); Imm Gran Abs Auto 0.02 X10*3/uL (0.00-0.03); Imm Gran Pct Auto 0.3 % (0.0-0.4); Lymphocytes Absolute Auto 1.6 X10*3/uL (1.2-4.9); Lymphocytes Percent Auto 21.6 % (20-40); Mean Corpuscular HGB Conc 32.7 g/dl (31.0-35.0); Mean Corpuscular Volume 97.9 fL (80.0-98.0); Mean Platelet Volume 9.2 fL (9.4-12.3); Monocytes Absolute Auto 0.9 X10*3/uL (0.1-1.2); Monocytes Percent Auto 11.8 % (2-11); Neutrophils Absolute Auto 4.7 x10*3/uL (2.0-8.3); Neutrophils Percent Auto 63.4 % (45-73); Platelet Count 228 X10*3/uL (160-400); Red Blood Count 4.37 X10*6/uL (4.20-5.50); White Blood Count 7.5 X10*3/uL (4.8-10.8)
[2022-07-11 16:52] LABS: Alanine Aminotransferase 22 U/L (0-31); Anion Gap 10 (12-20); Aspartate Amino Transferase 24 U/L (5-31); Blood Urea Nitrogen 21 mg/dL (9-16); Carbon Dioxide 27 mmol/L (22-29); Chloride 102 mmol/L (96-108); Estimated Glomerular Filt Rate > 60; Magnesium 2.2 mg/dL (1.6-2.6); Potassium 3.9 mmol/L (3.3-5.1); Sodium 135 mmol/L (135-145)
== END 2022-07-11 13:54 | disposition home or self-care (01) ==
LOC: HO.HMGCX 13:53
PROVIDERS: PCP Family Medicine; Visit Provider Family Medicine
DX: D25.9 Leiomyoma of uterus, unspecified (principal); I10 Essential (primary) hypertension; R06.02 Shortness of breath
CPT/HCPCS: 36415; 76830; 76856; 80051; 82565; 83735; 84450; 84460; 84520; 85025

== ENCOUNTER 2022-07-28 19:05 | Inpatient (IN) | payer MEDICARE, SELFPAY ==
--- NOTE | ~2022-07-28 | XR_ITS ---
EXAMINATION: XR CHEST CLINICAL INFORMATION: Chest pain, SOB COMPARISON: CT chest 12/25/2021 TECHNIQUE: Frontal view of the chest was obtained. FINDINGS: The lungs are expanded and clear acute pneumonic process. There is minimal scarring or atelectasis right middle lobe and left lung base similar to previous CT chest exam. Heart size and pulmonary vascularity is normal. No gross bony abnormality seen. XR/XR chest 1V IMPRESSION: Minimal scarring or atelectasis right middle lobe and left lung base unchanged to previous CT chest 12/25/2021. No acute pneumonic process seen.
[2022-07-28 19:13] VITALS: BP 136/88; PULSE 127; RESP 20; TEMP 35.9; O2SAT 95; BMI 30.7
--- NOTE | 2022-07-28 19:13 | ED_ITS ---
HPI - SOB/Dyspnea General Chief Complaint: Dyspnea <Janis Reeder CNP - Last Filed: 07/28/22 19:15> Stated Complaint: sob,,afib <Janis Reeder CNP - Last Filed: 07/28/22 19:15> Time Seen by Provider: 07/28/22 19:46 <Janis Reeder CNP - Last Filed: 07/28/22 19:15> Source: patient <Radha Leroy MD - Last Filed: 07/28/22 23:07> Mode of arrival: ambulatory <Radha Leroy MD - Last Filed: 07/28/22 23:07> Limitations: no limitations <Radha Leroy MD - Last Filed: 07/28/22 23:07> History of Present Illness HPI Narrative: Patient comes to the emergency room complaining palpitations. Patient states that she has history of atrial fibrillation, usually he does not have any symptoms. However, approximately 3 hours ago patient started having palpitations, no chest pain or shortness of breath. Patient states that she is compliant with the medication, takes diltiazem 240 mg daily and carvedilol 25 mg b.i.d.. Additionally, patient takes losartan 100 mg for blood pressure and is on Xarelto. Patient states she is very compliant with her medications. Also, patient states that she has history of 2 ablations and at least 5 cardioversions. <Radha Leroy MD - Last Filed: 07/28/22 23:07> Related Data Home Medications: Home Medications Medication Instructions Recorded Confirmed gabapentin 300 mg capsule 600 mg PO BEDTIME 05/16/20 07/28/22 montelukast 10 mg tablet 10 mg PO BEDTIME 05/16/20 07/28/22 fexofenadine 180 mg tablet 180 mg PO DAILY 06/21/21 07/28/22 (Shea Allergy) ascorbic acid (vitamin C) 250 mg 250 mg PO DAILY 07/28/21 07/28/22 tablet cholecalciferol (vitamin D3) 10 10 mcg PO DAILY 07/28/21 07/28/22 mcg (400 unit) capsule (Vitamin D3) coenzyme Q10 100 mg tablet 100 mg PO DAILY 07/28/21 07/28/22 diltiazem HCl 240 mg capsule,24 240 mg PO DAILY 07/28/21 07/28/22 hr,extended release ketorolac 0.5 % eye drops 1 drp ophthalmic (eye) BID 07/28/21 07/28/22 magnesium 250 mg tablet 250 mg PO DAILY 07/28/21 07/28/22 multivitamin 1 tab PO DAILY 07/28/21 07/28/22 furosemide 20 mg tablet 40 mg PO QAM 12/17/21 07/28/22 omeprazole 20 mg capsule,delayed 40 mg PO BEDTIME 12/17/21 07/28/22 release losartan 100 mg tablet 100 mg PO DAILY 02/04/22 07/28/22 meloxicam 15 mg tablet 15 mg PO DAILY 05/06/22 07/28/22 turmeric 400 mg capsule 400 mg PO DAILY 05/06/22 07/28/22 vitamin E (dl, acetate) 180 mg 180 mg PO DAILY 07/28/22 07/28/22 (400 unit) capsule Previous Rx's Medication Instructions Recorded ipratropium 0.5 mg-albuterol 3 mg 3 ml inhalation Q4-6H PRN wheezing 08/15/21 (2.5 mg base)/3 mL nebulization 30 days #180 mL soln rivaroxaban 20 mg tablet (Xarelto) 20 mg PO DAILY@1730 #90 tabs 01/20/22 atorvastatin 40 mg tablet 40 mg PO DAILY 90 days #90 tabs 03/13/22 empagliflozin 10 mg tablet 10 mg PO DAILY #30 tabs 03/13/22 (Jardiance) carvedilol 25 mg tablet 25 mg PO BID #60 tabs 07/21/22 <Janis Reeder CNP - Last Filed: 07/28/22 19:15> Allergies/Adverse Reactions: Allergies Allergy/AdvReac Type Severity Reaction Status Date / Time aspirin [ASPIRIN] Allergy Unknown RASH Verified 02/05/22 15:11 Sulfa (Sulfonamide Allergy Unknown RASH Verified 02/05/22 15:11 Antibiotics) [SULFA (SULFONAMIDE ANTIBIOTICS)] <Janis Reeder CNP - Last Filed: 07/28/22 19:15> Review of Systems Review of Systems: Constitutional : No Weight loss, No Fever, No Chills, No Night Sweats, No Fatigue, No Malaise ENT/Mouth : No Hearing loss, No Ear Pain, No Nasal Congestion, No Sinus Pain, No Hoarseness, No sore throat, No Rhinorrhea, No Swallowing Difficulty Eyes: No Eye Pain, No Swelling, No Redness, No Foreign Body, No Discharge, No Vision Changes Cardiovascular : No chest pain or shortness of breath, dyspnea on exertion, no orthopnea, complaining of palpitations, heart racing Respiratory : No Cough, No Sputum, No Wheezing, No Smoke Exposure, No Dyspnea Gastrointestinal : No Nausea, No Vomiting, No Diarrhea, No Constipation, No abdominal Pain, No Hematochezia, No Melena Genitourinary : no irregular bleeding, No Dysuria, No Urinary Frequency, No Hematuria, No Urinary Incontinence, No Urgency, No Flank Pain, No Urinary Flow Changes, No Hesitancy Musculoskeletal : No joint pain, No Myalgias, No Joint Swelling Skin : No Skin Lesions, No rash Neuro : No Weakness, No Numbness, No Paresthesias, No Loss of Consciousness, No Dizziness, No Headache Psych : No Anxiety/Panic, No Depression, No SI/HI/AH/VH, No Social Issues, Heme/Lymph: No Bruising, No Bleeding,No Lymphadenopathy Endocrine : No Polyuria, No Polydipsia, No Temperature Intolerance <Radha Leroy MD - Last Filed: 07/28/22 23:07> [facility] Past Medical History Medical History: Medical History Cardiomyopathy Chronic heart failure with preserved ejection fraction (HFpEF) Diastolic dysfunction History of cardiomyopathy History of cardioversion HTN (hypertension) Paroxysmal atrial fibrillation Paroxysmal atrial fibrillation Pulmonary hypertension Pulmonary hypertension <Janis Reeder CNP - Last Filed: 07/28/22 19:15> Surgical History: Surgical History History of back surgery Hx of cardiac cath Hx of hand surgery Hx of total hip arthroplasty S/P cardiac catheterization <Janis Reeder CNP - Last Filed: 07/28/22 19:15> Family History Family History: Family History Father Cancer Mother Stroke Brother Atrial fibrillation Sister Cardiovascular disease Atrial fibrillation <Janis Reeder CNP - Last Filed: 07/28/22 19:15> Social History Social History: Social History Household Members: None Housing: House Do you presently have visiting nurse or other home services: No Alcohol intake: never Patient Tobacco Use Status: Never used Tobacco Advance Directives: Yes Advance Directives Information Provided: No Advance Directives on File: No service: No Current occupational status: retired <Janis ReederSUDHA - Last Filed: 07/28/22 19:15> Physical Exam Vital Signs: Vital Signs: Last Vital Signs Temp 97.9 F 07/28/22 19:40 Pulse 107 H 07/28/22 22:00 Resp 12 07/28/22 22:00 BP 152/83 H 07/28/22 22:00 Pulse Ox 93 07/28/22 22:00 O2 Del Method 07/28/22 22:00 BMI result Body Mass Index 30.7 <Janis ReederSUDHA - Last Filed: 07/28/22 19:15> Vital Signs: Last Vital Signs Temp 97.9 F 07/28/22 19:40 Pulse 107 H 07/28/22 22:00 Resp 12 07/28/22 22:00 BP 152/83 H 07/28/22 22:00 Pulse Ox 93 07/28/22 22:00 O2 Del Method 07/28/22 22:00 BMI result Body Mass Index 30.7 <Radha Leroy MD - Last Filed: 07/28/22 23:07> Const: Other: Appearance: Alert. Oriented X3. No acute distress. Eyes: Pupils equal, round and reactive to light. ENT: Pharynx normal. Neck: Normal inspection. Neck supple. No lymph nodes noted. No crepitus CVS: Irregularly irregular heart rate in the 130s Pulses normal. Normal S1 and S2 Respiratory: No respiratory distress. Breath sounds normal. No Wheezing. No rales Abdomen: Soft and nontender. No rigidity. No distention. Skin: Skin warm and dry. Normal skin color. Normal skin turgor. Extremities: +1 pitting edema bilaterally, No Lacerations. No Rash Neuro: Oriented X 3. No motor deficit. No sensory deficit. Moving all extremities. No slurred speech. CN 2 through 12 grossly intact Psych: calm, cooperative, normal affect <Radha Leroy MD - Last Filed: 07/28/22 23:07> Course Course Course Narrative: RME: Patient is a 69-year-old female who presents to emergency department for evaluation of Left anterior chest pain described as a pressure which is occurring intermittently, shortness of breath, and palpitations, states she b elieves she is currently in A-fib. She is anticoagulated on Xarelto, also prescribed diltiazem and carvedilol for rate control. Denies any recent URI symptoms. Irregularly irregular rate noted is triage, rate as high as 130's Plan: Labs, EKG, chest x-ray, spoke with full charge bookkeeper regarding patient being brought back to main ED <Janis Reeder CNP - Last Filed: 07/28/22 19:15> RME: Patient is a 69-year-old female who presents to emergency department for evaluation of Left anterior chest pain described as a pressure which is occurring intermittently, shortness of breath, and palpitations, states she believes she is currently in A-fib. She is anticoagulated on Xarelto, also prescribed diltiazem and carvedilol for rate control. Denies any recent URI symptoms. Irregularly irregular rate noted is triage, rate as high as 130's Plan: Labs, EKG, chest x-ray, spoke with full charge bookkeeper regarding patient being brought back to main ED EKG on arrival shows atrial fibrillation, however wanted to, nonspecific ST changes, no suspicion for ACS, no T-wave inversion, QTC 459. Patient's blood pressure 141/80, she will be getting 20 mg of Cardizem. Patient states that she has history of ?stubborn? atrial fibrillation. Once it starts, she usually requires a cardioversion. We will go ahead and started the IV pushes. If needed we will do drips, which would require hospitalization. Patient agrees with plan. Patient was given 2 doses of 200 mg Cardizem. Initially, her heart rate was between 90 and 100. However, shortly after with minimal exertion, her heart rate increased to 140 again. Patient will be started on a Cardizem drip. Patient agrees with plan. <Radha Leroy MD - Last Filed: 07/28/22 23:07> Medications Administered Discontinued Medications Generic Name Dose Route Start Last Admin Trade Name Freq PRN Reason Stop Dose Admin Diltiazem HCl 20 mg 12/19/22 19:54 07/28/22 20:00 Diltiazem Hcl 50 Mg/10 Ml Vial IVPUSH 07/28/22 19:55 20 mg STAT STA Administration Diltiazem HCl 20 mg 07/28/22 21:38 07/28/22 21:57 Diltiazem Hcl 50 Mg/10 Ml Vial IVPUSH 07/28/22 21:39 20 mg STAT STA Administration <Janis Reeder CNP - Last Filed: 07/28/22 19:15> Medications Administered Discontinued Medications Generic Name Dose Route Start Last Admin Trade Name Freq PRN Reason Stop Dose Admin Diltiazem HCl 20 mg 07/28/22 19:54 07/28/22 20:00 Diltiazem Hcl 50 Mg/10 Ml Vial IVPUSH 07/28/22 19:55 20 mg STAT STA Administration Diltiazem HCl 20 mg 07/28/22 21:38 07/28/22 21:57 Diltiazem Hcl 50 Mg/10 Ml Vial IVPUSH 07/28/22 21:39 20 mg STAT STA Administration <Radha Leroy MD - Last Filed: 07/28/22 23:07> Medical Decision Making Lab Data Result Diagrams: : 07/28/22 19:44 07/28/22 19:44 <Janis Reeder CNP - Last Filed: 07/28/22 19:15> Labs: Lab Results 07/28/22 07/28/22 07/28/22 Range/Units 19:44 19:44 19:44 WBC 11.3 H (4.8-10.8) X10*3/uL RBC 4.50 (4.20-5.50) X10*6/uL Hgb 15.0 (12.0-16.0) g/dl Hct 44.0 (37.0-47.0) % MCV 97.8 (80.0-98.0) fL MCH 33.3 H (27.0-33.0) pg MCHC 34.1 (31.0-35.0) g/dl RDW 12.3 (11.0-16.0) % Plt Count 274 (160-400) X10*3/uL MPV 8.8 L (9.4-12.3) fL Immature Gran % (Auto) 1.1 H (0.0-0.4) % Neut % (Auto) 69.6 (45-73) % Lymph % (Auto) 16.2 L (20-40) % Bacon % (Auto) 11.6 H (2-11) % Eos % (Auto) 1.2 (0-4) % Baso % (Auto) 0.3 (0-2) % Lymph # (Auto) 1.8 (1.2-4.9) X10*3/uL Bacon # (Auto) 1.3 H (0.1-1.2) X10*3/uL Eos # (Auto) 0.1 (0.0-0.4) X10*3/uL Baso # (Auto) 0.0 (0.0-0.2) X10*3/uL Abs Immat Gran (auto) 0.12 H (0.00-0.03) X10*3/uL Absolute Neuts (auto) 7.9 (2.0-8.3) x10*3/uL Absolute Nucleated RBC 0.000 (0.0-0.012) X10*3/uL Nucleated RBC % (auto) 0.0 (0.0-0.2) /100WBC Sodium 142 (135-145) mmol/L Potassium 3.9 (3.3-5.1) mmol/L Chloride 108 (96-108) mmol/L Carbon Dioxide 24 (22-29) mmol/L Anion Gap 14 (12-20) BUN 32 H (9-16) mg/dL Creatinine 1.20 (0.5-1.4) mg/dL Estim Creat Clear Calc 41.3 Estimated GFR 43 Random Glucose 159 H (60-115) mg/dL Calcium 8.8 (8.4-10.2) mg/dL Magnesium 2.1 (1.6-2.6) mg/dL Total Bilirubin 1.0 (0.0-1.0) mg/dL AST 32 H (5-31) U/L ALT 34 H (0-31) U/L Alkaline Phosphatase 90 (39-117) U/L Troponin I High Sens 16.8 (<3.5-17.0) ng/L B-Natriuretic Peptide (<100) pg/mL Total Protein 6.3 L (6.5-8.0) g/dL Albumin 3.9 (3.5-5.0) g/dL 07/28/22 Range/Units 19:44 WBC (4.8-10.8) X10*3/uL RBC (4.20-5.50) X10*6/uL Hgb (12.0-16.0) g/dl Hct (37.0-47.0) % MCV (80.0-98.0) fL MCH (27.0-33.0) pg MCHC (31.0-35.0) g/dl RDW (11.0-16.0) % Plt Count (160-400) X10*3/uL MPV (9.4-12.3) fL Immature Gran % (Auto) (0.0-0.4) % Neut % (Auto) (45-73) % Lymph % (Auto) (20-40) % Bacon % (Auto) (2-11) % Eos % (Auto) (0-4) % Baso % (Auto) (0-2) % Lymph # (Auto) (1.2-4.9) X10*3/uL Bacon # (Auto) (0.1-1.2) X10*3/uL Eos # (Auto) (0.0-0.4) X10*3/uL Baso # (Auto) (0.0-0.2) X10*3/uL Abs Immat Gran (auto) (0.00-0.03) X10*3/uL Absolute Neuts (auto) (2.0-8.3) x10*3/uL Absolute Nucleated RBC (0.0-0.012) X10*3/uL Nucleated RBC % (auto) (0.0-0.2) /100WBC Sodium (135-145) mmol/L Potassium (3.3-5.1) mmol/L Chloride (96-108) mmol/L Carbon Dioxide (22-29) mmol/L Anion Gap (12-20) BUN (9-16) mg/dL Creatinine (0.5-1.4) mg/dL Estim Creat Clear Calc Estimated GFR Random Glucose (60-115) mg/dL Calcium (8.4-10.2) mg/dL Magnesium (1.6-2.6) mg/dL Total Bilirubin (0.0-1.0) mg/dL AST (5-31) U/L ALT (0-31) U/L Alkaline Phosphatase (39-117) U/L Troponin I High Sens (<3.5-17.0) ng/L B-Natriuretic Peptide 369 H (<100) pg/mL Total Protein (6.5-8.0) g/dL Albumin (3.5-5.0) g/dL <Janis Reeder, ACADEMIC AFFAIRS DIRECTOR - Last Filed: 07/28/22 19:15> Lab Results 07/28/22 07/28/22 07/28/22 Range/Units 19:44 19:44 19:44 WBC 11.3 H (4.8-10.8) X10*3/uL RBC 4.50 (4.20-5.50) X10*6/uL Hgb 15.0 (12.0-16.0) g/dl Hct 44.0 (37.0-47.0) % MCV 97.8 (80.0-98.0) fL MCH 33.3 H (27.0-33.0) pg MCHC 34.1 (31.0-35.0) g/dl RDW 12.3 (11.0-16.0) % Plt Count 274 (160-400) X10*3/uL MPV 8.8 L (9.4-12.3) fL Immature Gran % (Auto) 1.1 H (0.0-0.4) % Neut % (Auto) 69.6 (45-73) % Lymph % (Auto) 16.2 L (20-40) % Bacon % (Auto) 11.6 H (2-11) % Eos % (Auto) 1.2 (0-4) % Baso % (Auto) 0.3 (0-2) % Lymph # (Auto) 1.8 (1.2-4.9) X10*3/uL Bacon # (Auto) 1.3 H (0.1-1.2) X10*3/uL Eos # (Auto) 0.1 (0.0-0.4) X10*3/uL Baso # (Auto) 0.0 (0.0-0.2) X10*3/uL Abs Immat Gran (auto) 0.12 H (0.00-0.03) X10*3/uL Absolute Neuts (auto) 7.9 (2.0-8.3) x10*3/uL Absolute Nucleated RBC 0.000 (0.0-0.012) X10*3/uL Nucleated RBC % (auto) 0.0 (0.0-0.2) /100WBC Sodium 142 (135-145) mmol/L Potassium 3.9 (3.3-5.1) mmol/L Chloride 108 (96-108) mmol/L Carbon Dioxide 24 (22-29) mmol/L Anion Gap 14 (12-20) BUN 32 H (9-16) mg/dL Creatinine 1.20 (0.5-1.4) mg/dL Estim Creat Clear Calc 41.3 Estimated GFR 43 Random Glucose 159 H (60-115) mg/dL Calcium 8.8 (8.4-10.2) mg/dL Magnesium 2.1 (1.6-2.6) mg/dL Total Bilirubin 1.0 (0.0-1.0) mg/dL AST 32 H (5-31) U/L ALT 34 H (0-31) U/L Alkaline Phosphatase 90 (39-117) U/L Troponin I High Sens 16.8 (<3.5-17.0) ng/L B-Natriuretic Peptide (<100) pg/mL Total Protein 6.3 L (6.5-8.0) g/dL Albumin 3.9 (3.5-5.0) g/dL 07/28/22 Range/Units 19:44 WBC (4.8-10.8) X10*3/uL RBC (4.20-5.50) X10*6/uL Hgb (12.0-16.0) g/dl Hct (37.0-47.0) % MCV (80.0-98.0) fL MCH (27.0-33.0) pg MCHC (31.0-35.0) g/dl RDW (11.0-16.0) % Plt Count (160-400) X10*3/uL MPV (9.4-12.3) fL Immature Gran % (Auto) (0.0-0.4) % Neut % (Auto) (45-73) % Lymph % (Auto) (20-40) % Bacon % (Auto) (2-11) % Eos % (Auto) (0-4) % Baso % (Auto) (0-2) % Lymph # (Auto) (1.2-4.9) X10*3/uL Bacon # (Auto) (0.1-1.2) X10*3/uL Eos # (Auto) (0.0-0.4) X10*3/uL Baso # (Auto) (0.0-0.2) X10*3/uL Abs Immat Gran (auto) (0.00-0.03) X10*3/uL Absolute Neuts (auto) (2.0-8.3) x10*3/uL Absolute Nucleated RBC (0.0-0.012) X10*3/uL Nucleated RBC % (auto) (0.0-0.2) /100WBC Sodium (135-145) mmol/L Potassium (3.3-5.1) mmol/L Chloride (96-108) mmol/L Carbon Dioxide (22-29) mmol/L Anion Gap (12-20) BUN (9-16) mg/dL Creatinine (0.5-1.4) mg/dL Estim Creat Clear Calc Estimated GFR Random Glucose (60-115) mg/dL Calcium (8.4-10.2) mg/dL Magnesium (1.6-2.6) mg/dL Total Bilirubin (0.0-1.0) mg/dL AST (5-31) U/L ALT (0-31) U/L Alkaline Phosphatase (39-117) U/L Troponin I High Sens (<3.5-17.0) ng/L B-Natriuretic Peptide 369 H (<100) pg/mL Total Protein (6.5-8.0) g/dL Albumin (3.5-5.0) g/dL <Radha Leroy MD - Last Filed: 07/28/22 23:07> Critical Care Time Critical Care Time Critical Care Time: Yes <Radha Leroy MD - Last Filed: 07/28/22 23:07> Total Critical Care Time: 60 <Rdaha Leroy MD - Last Filed: 07/28/22 23:07> Attestation: I have personally provided critical care time. Time includes review of lab data, radiology results, discussion with consultants, and monitoring for potential decompensation. Intervention performed as documented. <Radha Leroy MD - Last Filed: 07/28/22 23:07> Discharge Plan Discharge Clinical Impression: Atrial fibrillation with RVR <Janis Reeder CNP - Last Filed: 07/28/22 19:15> Patient Disposition: Admitted As Inpatient <Janis Reeder CNP - Last Filed: 07/28/22 19:15> Prescriptions: No Action ipratropium-albuterol 0.5 mg-3 mg(2.5 mg base)/3 mL solution for nebulization 3 ml inhalation Q4-6H PRN (Reason: wheezing) 30 Days Qty: 180 6RF Xarelto 20 mg tablet 20 mg PO DAILY@1730 Qty: 90 3RF atorvastatin 40 mg tablet 40 mg PO DAILY 90 Days Qty: 90 3RF Jardiance 10 mg tablet 10 mg PO DAILY Qty: 30 2RF carvedilol 25 mg tablet 25 mg PO BID Qty: 60 5RF diltiazem HCl 240 mg Capsule,Extended Release 24 Hr 240 mg PO DAILY ketorolac 0.5 % Drops 1 drp OPHTHALMIC (EYE) BID coenzyme Q10 100 mg Tablet 100 mg PO DAILY Rx Instructions: patient unsure of her dose multivitamin Tablet 1 tab PO DAILY magnesium 250 mg Tablet 250 mg PO DAILY Rx Instructions: patient not sure of her dose ascorbic acid (vitamin C) 250 mg Tablet 250 mg PO DAILY cholecalciferol (vitamin D3) [Vitamin D3] 10 mcg (400 unit) Capsule 10 mcg PO DAILY Rx Instructions: patient not sure of her dose furosemide 20 mg tablet 40 mg PO QAM vitamin E (dl, acetate) 180 mg (400 unit) Capsule 180 mg PO DAILY montelukast 10 mg tablet 10 mg PO BEDTIME gabapentin 300 mg capsule 600 mg PO BEDTIME omeprazole 20 mg capsule,delayed release(DR/EC) 40 mg PO BEDTIME losartan 100 mg tablet 100 mg PO DAILY fexofenadine [Shea Allergy] 180 mg tablet 180 mg PO DAILY meloxicam 15 mg tablet 15 mg PO DAILY turmeric 400 mg capsule 400 mg PO DAILY <Janis Reeder, SUDHA - Last Filed: 07/28/22 19:15>
--- NOTE | 2022-07-28 19:16 | ECG_ITS ---
Test Reason : AFIB Blood Pressure : / mmHG Vent. Rate : 132 BPM Atrial Rate : 000 BPM P-R Int : 000 ms QRS Dur : 086 ms QT Int : 310 ms P-R-T Axes : 000 035 -16 degrees QTc Int : 459 ms Atrial fibrillation with rapid ventricular response Nonspecific ST and T wave abnormality Abnormal ECG When compared with ECG of 29-JUL-2021 12:39, Atrial fibrillation has replaced Sinus rhythm Vent. rate has increased BY 68 BPM Nonspecific T wave abnormality now evident in Anterior leads Referred By: Janis Reeder Electronically Signed By:Rickie Allison
[2022-07-28 19:40] VITALS: BP 141/80; PULSE 140; RESP 15; TEMP 36.6; O2SAT 95
[2022-07-28 19:55] LABS: MANUAL DIFF FLAG NO
[2022-07-28 19:57] LABS: Basophils Percent Auto 0.3 % (0-2); Eosinophils Absolute Auto 0.1 X10*3/uL (0.0-0.4); Eosinophils Percent Auto 1.2 % (0-4); Imm Gran Abs Auto 0.12 X10*3/uL (0.00-0.03); Imm Gran Pct Auto 1.1 % (0.0-0.4); Lymphocytes Absolute Auto 1.8 X10*3/uL (1.2-4.9); Lymphocytes Percent Auto 16.2 % (20-40); Mean Corpuscular HGB Conc 34.1 g/dl (31.0-35.0); Mean Corpuscular Hemoglobin 33.3 pg (27.0-33.0); Mean Corpuscular Volume 97.8 fL (80.0-98.0); Mean Platelet Volume 8.8 fL (9.4-12.3); Monocytes Absolute Auto 1.3 X10*3/uL (0.1-1.2); Monocytes Percent Auto 11.6 % (2-11); Neutrophils Absolute Auto 7.9 x10*3/uL (2.0-8.3); Neutrophils Percent Auto 69.6 % (45-73); Platelet Count 274 X10*3/uL (160-400); Red Cell Distribution Width 12.3 % (11.0-16.0); White Blood Count 11.3 X10*3/uL (4.8-10.8)
[2022-07-28] MEDS: dilTIAZem HCL 50 MG/10 ML VIAL 20 MG IVPUSH ×2 (20:00→21:57)
[2022-07-28 20:16] LABS: Alanine Aminotransferase 34 U/L (0-31); Albumin Level 3.9 g/dL (3.5-5.0); Alkaline Phosphatase 90 U/L (39-117); Anion Gap 14 (12-20); Aspartate Amino Transferase 32 U/L (5-31); Blood Urea Nitrogen 32 mg/dL (9-16); Calcium 8.8 mg/dL (8.4-10.2); Carbon Dioxide 24 mmol/L (22-29); Chloride 108 mmol/L (96-108); Creatinine Clr Calc Pharmacy 41.3; Estimated Glomerular Filt Rate 43; Glucose Random 159 mg/dL (60-115); Magnesium 2.1 mg/dL (1.6-2.6); Potassium 3.9 mmol/L (3.3-5.1); Sodium 142 mmol/L (135-145); Total Protein 6.3 g/dL (6.5-8.0)
[2022-07-28 20:21] LABS: B Type Natriuretic Peptide 369 pg/mL (<100)
[2022-07-28 20:28] LABS: Troponin-I High Sensitivity 16.8 ng/L (<3.5-17.0)
[2022-07-28 22:00] VITALS: BP 152/83; PULSE 107; RESP 12; O2SAT 93
--- NOTE | 2022-07-28 22:04 | PC.NURSE ---
Pt aox3. Resting at the bedside. Reports no pain at this time. Breaths are even and unlabored. Sinus tach on monitor with HR 107. Medicated with Diltiazem 4mg IV push. HR noted to decrease to 86 bmp. Pt tolerated well. Family at bedside. Pt aware of plan of care.
--- NOTE | 2022-07-28 22:27 | PHA.MEDREC ---
Pharmacy Consult ? Medication Reconciliation Pharmacy has completed the medication reconciliation.
[2022-07-28 23:27] VITALS: BP 139/93; PULSE 135; RESP 17; TEMP 37.1; O2SAT 93
[2022-07-28] MEDS: dilTIAZem HCL 125 MG in 0.9 % Sodium Chloride 100 ML 10 MG IVCONT (23:33)
--- NOTE | 2022-07-28 23:39 | PC.NURSE ---
Diltiazem 125 drip started at 10ml/hr per protocol on the left ac. Pt is resting calmly at the bedside in no apparent distress. Sinus tach shown on the monitor with HR of 135. Breaths are even and unlabored with RR 15bmp. Pt is aware of plan of care.
[2022-07-29] VITALS (16 sets, daily range): BP systolic 113–154; BP diastolic 64–95; PULSE 59–137; RESP 12–22; TEMP 36.3–36.8; O2SAT 92–99
--- NOTE | 2022-07-29 00:51 | PM.IMHP ---
History of Present Illness Date of Service: 07/29/22 Chief Complaint: palpitations 77-year-old female with past medical history of paroxysmal AFib, chronic diastolic heart failure, HTN, pulmonary hypertension presented with palpitations. patient reports she was awoke without symtpoms on day of presentation then started to feel off having low energy and palpitations, decided to take pulse and noted it was elevated. patient has history of paroxysmal atrial fibrillation, she is compliant with meds cardizem 240mg daily and coreg 25mg bid. she has had multiple CV and ablations in past. denies chest pain, fever, chills, sob. Review of Systems Review of Systems: Constitutional: Denies fever, denies Chills Eyes: denies blurry vision ENT: denies sore throat CVS: see hpi Respiratory: Denies dyspnea GI: no abdominal pain : denies dysuria MSK: denies neck pain Skin: denies rash Neuro: denies specific motor weakness Psych: denies suicidal ideation Endocrine: denies heat/cold intolerance Hematologic: denies easy bleeding Allergy: denies hives [facility] Medical History Cardiomyopathy Chronic heart failure with preserved ejection fraction (HFpEF) Diastolic dysfunction History of cardiomyopathy History of cardioversion HTN (hypertension) Paroxysmal atrial fibrillation Paroxysmal atrial fibrillation Pulmonary hypertension Pulmonary hypertension Family History Father Cancer Mother Stroke Brother Atrial fibrillation Sister Cardiovascular disease Atrial fibrillation Surgical History History of back surgery Hx of cardiac cath Hx of hand surgery Hx of total hip arthroplasty S/P cardiac catheterization Social History Household Members: None Housing: House Do you presently have visiting nurse or other home services: No Alcohol intake: never Patient Tobacco Use Status: Never used Tobacco Smoked in Last 30 Days: No Use of substances other than those prescribed or required for medical reasons: No Advance Directives: Yes Advance Directives Information Provided: No Advance Directives on File: No service: No Current occupational status: retired Meds Allergies Allergy/AdvReac Type Severity Reaction Status Date / Time aspirin [ASPIRIN] Allergy Unknown RASH Verified 02/05/22 15:11 Sulfa (Sulfonamide Allergy Unknown RASH Verified 02/05/22 15:11 Antibiotics) [SULFA (SULFONAMIDE ANTIBIOTICS)] Active Medications: Current Medications Albuterol/Ipratropium (Albuterol/Iprat 2.5/0.5mg 3 Ml Ampul.Neb) 3 ml INHALE Q4-6H PRN PRN Reason: wheezing Ascorbic Acid (Ascorbic Acid 250 Mg Tablet) 250 mg PO DAILY [facility] Atorvastatin Calcium (Atorvastatin Calcium 40 Mg Tablet) 40 mg PO DAILY [facility] Carvedilol (Carvedilol 25 Mg Tablet) 25 mg PO BID ROSENDA; Protocol Dextrose (Dextrose 50 % 25 Gm/50 Ml Syringe) 25 gm IVPUSH Q15M PRN; Protocol PRN Reason: per Hypoglycemia Standing Ord. Furosemide (Furosemide 40 Mg Tablet) 40 mg PO QAM ROSENDA; Protocol Gabapentin (Gabapentin 300 Mg Capsule) 600 mg PO BEDTIME [facility] Glucose (Glucose Gel 15 Gm Gel..Gram.) 15 gm PO Q15M PRN; Protocol PRN Reason: per Hypoglycemia Standing Ord. Diltiazem HCl 125 mg/ Sodium (Chloride) 125 mls @ 0 mls/hr IVCONT .Q0M [facility]; Protocol Last Admin: 07/28/22 23:33 Dose: 10 mg/hr, 10 mls/hr Insulin Human Lispro (Insulin Lispro 100 Unit/Ml 3 Ml Vial) 0 unit SUBCUT QIDACHS [facility]; Protocol Ketorolac Tromethamine (Ketorolac Tromethamine 0.5% Op 5 Ml Drops) 1 drop EYE-BOTH BID [facility] Losartan Potassium (Losartan Potassium 50 Mg Tablet) 100 mg PO DAILY [facility]; Protocol Montelukast Sodium (Montelukast Sodium 10 Mg Tablet) 10 mg PO BEDTIME [facility] Multivitamins/Vitamin C (Multivitamin Tablet) 1 tab PO DAILY [facility] Non-Formulary Medication (Magnesium) 250 mg PO DAILY [facility] Non-Formulary Medication (Fexofenadine [Shea Allergy]) 180 mg PO DAILY [facility] Omeprazole (Omeprazole 40 Mg Capsule.) 40 mg PO BEDTIME [facility] Pharmacy Consult (Consult Rx Perform Med Rec) 1 each MISCELLANE ONCE PRN PRN Reason: Consult order Pharmacy Consult (Consult Rx Perform Med Rec) 1 each MISCELLANE ONCE PRN PRN Reason: Consult order Rivaroxaban (Rivaroxaban 20 Mg Tablet) 20 mg PO DAILY@1730 [facility] Vitamin D (Cholecalciferol (Vitamin D3) 10 Mcg Tablet) 10 mcg PO DAILY [facility] Vitamin E (Vitamin E (Dl,Tocopheryl Acet) 180 Mg (400 Unit) Capsule) 180 mg PO DAILY [facility] Home Medications Medication Instructions Recorded Confirmed Last Taken Type gabapentin 300 mg capsule 600 mg PO BEDTIME 05/16/20 07/28/22 07/27/22 History montelukast 10 mg tablet 10 mg PO BEDTIME 05/16/20 07/28/22 07/27/22 History fexofenadine 180 mg tablet 180 mg PO DAILY 06/21/21 07/28/22 07/28/22 History (Shea Allergy) ascorbic acid (vitamin C) 250 mg 250 mg PO DAILY 07/28/21 07/28/22 07/28/22 History tablet cholecalciferol (vitamin D3) 10 10 mcg PO DAILY 07/28/21 07/28/22 07/28/22 History mcg (400 unit) capsule (Vitamin D3) coenzyme Q10 100 mg tablet 100 mg PO DAILY 07/28/21 07/28/22 07/28/22 History diltiazem HCl 240 mg capsule,24 240 mg PO DAILY 07/28/21 07/28/22 07/28/22 History hr,extended release ketorolac 0.5 % eye drops 1 drp ophthalmic (eye) BID 07/28/21 07/28/22 07/28/22 History magnesium 250 mg tablet 250 mg PO DAILY 07/28/21 07/28/22 07/28/22 History multivitamin 1 tab PO DAILY 07/28/21 07/28/22 07/28/22 History furosemide 20 mg tablet 40 mg PO QAM 12/17/21 07/28/22 07/28/22 History omeprazole 20 mg capsule,delayed 40 mg PO BEDTIME 12/17/21 07/28/22 07/27/22 History release losartan 100 mg tablet 100 mg PO DAILY 02/04/22 07/28/22 07/28/22 History meloxicam 15 mg tablet 15 mg PO DAILY 05/06/22 07/28/22 07/28/22 History turmeric 400 mg capsule 400 mg PO DAILY 05/06/22 07/28/22 07/28/22 History vitamin E (dl, acetate) 180 mg 180 mg PO DAILY 07/28/22 07/28/22 07/28/22 History (400 unit) capsule Physical Exam Vital Signs and Narrative: Vital Signs: Last Vital Signs Temp 98.7 F 07/28/22 23:27 Pulse 135 H 07/28/22 23:27 Resp 17 07/28/22 23:27 BP 139/93 H 07/28/22 23:27 Pulse Ox 93 07/28/22 23:27 O2 Del Method 07/28/22 23:27 BMI result Body Mass Index 30.7 General: no acute distress HEENT: atraumatic Neck: normal to visual inspection CVS: S1, S2, Rapid irregular Resp: CTA bilateral Chest: non tender GI: soft, non tender, non distended : no CVA tenderness Skin: no rashes Extremities: no edema Neuro: Oriented X3, grossly intact Psych: cooperative Results Labs CBC and Chem 7: 07/28/22 19:44 07/28/22 19:44 Labs: Laboratory Results - last 24 hr 07/28/22 07/28/22 07/28/22 19:44 19:44 19:44 MCV 97.8 MCH 33.3 H MCHC 34.1 RDW 12.3 Plt Count 274 MPV 8.8 L Immature Gran % (Auto) 1.1 H Neut % (Auto) 69.6 Lymph % (Auto) 16.2 L [place] % (Auto) 11.6 H Eos % (Auto) 1.2 Baso % (Auto) 0.3 Lymph # (Auto) 1.8 [place] # (Auto) 1.3 H Eos # (Auto) 0.1 Baso # (Auto) 0.0 Abs Immat Gran (auto) 0.12 H Absolute Neuts (auto) 7.9 Absolute Nucleated RBC 0.000 Nucleated RBC % (auto) 0.0 Anion Gap 14 Estim Creat Clear Calc 41.3 Estimated GFR 43 Random Glucose 159 H Calcium 8.8 Magnesium 2.1 Total Bilirubin 1.0 AST 32 H ALT 34 H Alkaline Phosphatase 90 Troponin I High Sens 16.8 B-Natriuretic Peptide Total Protein 6.3 L Albumin 3.9 07/28/22 19:44 MCV MCH MCHC RDW Plt Count MPV Immature Gran % (Auto) Neut % (Auto) Lymph % (Auto) [place] % (Auto) Eos % (Auto) Baso % (Auto) Lymph # (Auto) [place] # (Auto) Eos # (Auto) Baso # (Auto) Abs Immat Gran (auto) Absolute Neuts (auto) Absolute Nucleated RBC Nucleated RBC % (auto) Anion Gap Estim Creat Clear Calc Estimated GFR Random Glucose Calcium Magnesium Total Bilirubin AST ALT Alkaline Phosphatase Troponin I High Sens B-Natriuretic Peptide 369 H Total Protein Albumin Imaging Radiologist's Impressions: Impressions Chest X-Ray 07/28/22 19:31 IMPRESSION: Minimal scarring or atelectasis right middle lobe and left lung base unchanged to previous CT chest 12/25/2021. No acute pneumonic process seen. Assessment and Plan (1) Atrial fibrillation with RVR: Status: Acute Plan 77 year-old female with past medical history of AFib, diastolic heart failure, HTN, mod persistent asthma, pulmonary hypertension who presented to the hospital with complaints of palpitations paroxysmal afib with RVR continue coreg 25mg bid, xarelto started on diltiazem infusion cardio eval chornic diastolic chf lasix 40mg po daily moderate persistent asthma with pulm htn continue nebs prn, singulair HTN losartan coreg cardizem hld statin dvt prohpylaxis - on xarelto full code patient with symptomatic afib with rvr requiring iv infusion, at risk for further decompensation due to history of pulm htn, chf, therefore, expected to require atleast 2 midnights inpatient. Time Spent With Patient Time: Total time managing care of this patient today ____ minutes. Quality Stroke Does the patient have a stroke diagnosis?: No VTE Prior VTE?: No VTE Risk Level:: Medical - moderate - high VTE Device Contraindication: Treatment Not Indicated VTE Drug Contraindication: N/A - Med Ordered
[2022-07-29] MEDS: carvediloL 25 MG TABLET PO ×3 (01:57→20:27)
[2022-07-29 02:01] LABS: COVID-19 Test Negative (Negative); IDNOW Serial# BCCEAD1C
--- NOTE | 2022-07-29 05:38 | PC.NURSE ---
Pt awake at the bedside in no apparent distress. Diltiazem 125 running at 10ml/hr. Sinus tach on monitor with HR 90-120. Pt aware of plan of care.
[2022-07-29 07:25] LABS: Glucose, Whole Blood 118 mg/dL (60-115)
--- NOTE | 2022-07-29 07:34 | PC.NURSE ---
pt is a/o x 4 no sob/rose mary noted speaks in full sentences. lungs -cta. heart sounds -irregular. abd soft and non-tender, bs+ 4 quads. pt eating breakfast.diltiazem drip at 10mg/hr. no edema noted. pt denies any pain/disc. pt aware of plan of care.
[2022-07-29] MEDS: Atorvastatin Calcium 40 MG TABLET PO (07:52)
[2022-07-29] MEDS: Furosemide 40 MG TABLET PO (07:52)
[2022-07-29] MEDS: Ascorbic Acid 250 MG TABLET PO (07:53)
[2022-07-29] MEDS: Magnesium Oxide 400 MG TABLET PO (07:53)
[2022-07-29] MEDS: Loratadine 10 MG TABLET PO (07:53)
[2022-07-29] MEDS: Losartan Potassium 50 MG TABLET 100 MG PO (07:53)
[2022-07-29] MEDS: Multivitamin TABLET 1 TAB PO (07:53)
[2022-07-29] MEDS: 0.9 % Sodium Chloride Flush 3 ML SYRINGE IVFLUSH ×2 (07:54→21:05)
--- NOTE | 2022-07-29 08:35 | PC.NURSE ---
diitiazem drip increased to 15mg/hr, vs [id number]
[2022-07-29] MEDS: Vitamin E (Dl,Tocopheryl Acet) 180 MG (400 UNIT) CAPSULE PO (08:37)
[2022-07-29] MEDS: Cholecalciferol (Vitamin D3) 10 MCG TABLET PO (08:37)
--- NOTE | 2022-07-29 09:26 | PM.EVENT ---
Event Note Date of Service: 07/29/22 Event Note: Day Team Follow up. Pt seen and examined. Still reports intermittent palpitaitons. Tele reviewed -- rates improved, but still remain over 100 at times on max cardizem gtt d/w Cardiology briefly -- may need cadioversion; will keep pt NPO however, she ate breakfast already Otherwise, continue plan as outlined in admission H&P Time Spent With Patient Time: Total time managing care of this patient today ____ minutes.
--- NOTE | 2022-07-29 10:25 | PC.NURSE ---
rn to rn report given, pt was to have cardioversion at 1330 but because she ate this am it will be rescheduled for 1600 today. pt is aware of plan of care.
[2022-07-29] MEDS: dilTIAZem HCL 125 MG in 0.9 % Sodium Chloride 100 ML 15 MG IVCONT (11:00)
--- NOTE | 2022-07-29 12:40 | PC.NURSE ---
Addendum entered by Naseem Vyas CNA 07/29/22 12:59: PATIENT REFUSED POC NOT PCT Original Note: attempted to check pts poc, pct refused blood sugar check states she isnt a diabetic therfore doesnt want poc done. RN aware.
--- NOTE | 2022-07-29 12:54 | PC.NURSE ---
pt's daughter fang ([phone]) [place] [facility] [place] status. pt is aware.
--- NOTE | 2022-07-29 13:50 | MHC.CM.PN ---
pt lives alone she is indepdent is covid vax x 4 has own ride home expected plan is home no servceis
--- NOTE | 2022-07-29 15:29 | P.CONCA_ITS ---
History of Present Illness History of Present Illness Date of Service: 07/29/22 Requesting physician: David Birch Chief complaint: afib rvr Narrative: 77-year-old female with known history of atrial fibrillation in the past status post ablation who is presenting with palpitations and shortness of breath. She noticed her heart rate to be fast yesterday and started feeling palpitations at the same time. She called our office and was advised to come to the emergency department. In the ER her EKG showed atrial fibrillation with rapid ventricular response. She is saying she is short of breath more than usual. She has chronic dyspnea with activities. She has been using inhalers also in the past. She has been taking anticoagulation without any interruption the last 6 weeks. She is saying she took amiodarone the plasma there was some concern about lung issues and amiodarone was stopped. She also recalls being in the hospital for a sotalol load and from her description it appears it also failed in the past. She is saying she had 3 he ablation the last 1 was in December [address] Hayden amador. Lost echocardiogram was from August 2021 showing preserved ejection fraction. [facility] Past Medical History Medical History Cardiomyopathy Chronic heart failure with preserved ejection fraction (HFpEF) Diastolic dysfunction History of cardiomyopathy History of cardioversion HTN (hypertension) Paroxysmal atrial fibrillation Paroxysmal atrial fibrillation Pulmonary hypertension Pulmonary hypertension Family History Family History Father Cancer Mother Stroke Brother Atrial fibrillation Sister Cardiovascular disease Atrial fibrillation Surgical History Surgical History History of back surgery Hx of cardiac cath Hx of hand surgery Hx of total hip arthroplasty S/P cardiac catheterization Social History Social History Household Members: None Housing: House Do you presently have visiting nurse or other home services: No Alcohol intake: never Patient Tobacco Use Status: Never used Tobacco Smoked in Last 30 Days: No Use of substances other than those prescribed or required for medical reasons: No Advance Directives: Yes Advance Directives Information Provided: No Advance Directives on File: No service: No Current occupational status: retired Meds Allergies Allergy/AdvReac Type Severity Reaction Status Date / Time aspirin [ASPIRIN] Allergy Unknown RASH Verified 02/05/22 15:11 Sulfa (Sulfonamide Allergy Unknown RASH Verified 02/05/22 15:11 Antibiotics) [SULFA (SULFONAMIDE ANTIBIOTICS)] Active Medications: Current Medications Albuterol/Ipratropium (Albuterol/Iprat 2.5/0.5mg 3 Ml Ampul.Neb) 3 ml INHALE RQ4H PRN PRN Reason: wheezing Ascorbic Acid (Ascorbic Acid 250 Mg Tablet) 250 mg PO DAILY [facility] Last Admin: 07/29/22 07:53 Dose: 250 mg Atorvastatin Calcium (Atorvastatin Calcium 40 Mg Tablet) 40 mg PO DAILY [facility] Last Admin: 07/29/22 07:52 Dose: 40 mg Carvedilol (Carvedilol 25 Mg Tablet) 25 mg PO BID [facility]; Protocol Last Admin: 07/29/22 07:52 Dose: 25 mg Dextrose (Dextrose 50 % 25 Gm/50 Ml Syringe) 25 gm IVPUSH Q15M PRN; Protocol PRN Reason: per Hypoglycemia Standing Ord. Furosemide (Furosemide 40 Mg Tablet) 40 mg PO DAILY [facility]; Protocol Last Admin: 07/29/22 07:52 Dose: 40 mg Gabapentin (Gabapentin 300 Mg Capsule) 600 mg PO BEDTIME [facility] Glucose (Glucose Gel 15 Gm Gel..Gram.) 15 gm PO Q15M PRN; Protocol PRN Reason: per Hypoglycemia Standing Ord. Diltiazem HCl 125 mg/ Sodium (Chloride) 125 mls @ 0 mls/hr IVCONT .Q0M [facility]; Protocol Last Admin: 07/29/22 11:00 Dose: 15 mg/hr, 15 mls/hr Insulin Human Lispro (Insulin Lispro 100 Unit/Ml 3 Ml Vial) 0 unit SUBCUT QIDACHS [facility]; Protocol Last Admin: 07/29/22 12:53 Dose: Not Given Ketorolac Tromethamine (Ketorolac Tromethamine 0.5% Op 5 Ml Drops) 1 drop EYE-BOTH BID [facility] Last Admin: 07/29/22 08:37 Dose: Not Given Loratadine (Loratadine 10 Mg Tablet) 10 mg PO DAILY [facility] Last Admin: 07/29/22 07:53 Dose: 10 mg Losartan Potassium (Losartan Potassium 50 Mg Tablet) 100 mg PO DAILY [facility]; Protocol Last Admin: 07/29/22 07:53 Dose: 100 mg Magnesium Oxide (Magnesium Oxide 400 Mg Tablet) 400 mg PO DAILY [facility] Last Admin: 07/29/22 07:53 Dose: 400 mg Montelukast Sodium (Montelukast Sodium 10 Mg Tablet) 10 mg PO BEDTIME [facility] Multivitamins/Vitamin C (Multivitamin Tablet) 1 tab PO DAILY [facility] Last Admin: 07/29/22 07:53 Dose: 1 tab Omeprazole (Omeprazole 40 Mg Capsule.Dr) 40 mg PO BEDTIME [facility] Pharmacy Consult (Consult Rx Perform Med Rec) 1 each MISCELLANE ONCE PRN PRN Reason: Consult order Rivaroxaban (Rivaroxaban 20 Mg Tablet) 20 mg PO DAILY@1730 [facility] Sodium Chloride (0.9 % Sodium Chloride Flush 3 Ml Syringe) 3 ml IVFLUSH QSHIFT [facility] Last Admin: 07/29/22 07:54 Dose: 3 ml Vitamin D (Cholecalciferol (Vitamin D3) 10 Mcg Tablet) 10 mcg PO DAILY [facility] Last Admin: 07/29/22 08:37 Dose: 10 mcg Vitamin E (Vitamin E (Dl,Tocopheryl Acet) 180 Mg (400 Unit) Capsule) 180 mg PO DAILY [facility] Last Admin: 07/29/22 08:37 Dose: 180 mg Home Medications Medication Instructions Recorded Confirmed Last Taken Type gabapentin 300 mg capsule 600 mg PO BEDTIME 05/16/20 07/28/22 07/27/22 History montelukast 10 mg tablet 10 mg PO BEDTIME 05/16/20 07/28/22 07/27/22 History fexofenadine 180 mg tablet 180 mg PO DAILY 06/21/21 07/28/22 07/28/22 History (Shea Allergy) ascorbic acid (vitamin C) 250 mg 250 mg PO DAILY 07/28/21 07/28/22 07/28/22 History tablet cholecalciferol (vitamin D3) 10 10 mcg PO DAILY 07/28/21 07/28/22 07/28/22 History mcg (400 unit) capsule (Vitamin D3) coenzyme Q10 100 mg tablet 100 mg PO DAILY 07/28/21 07/28/22 07/28/22 History diltiazem HCl 240 mg capsule,24 240 mg PO DAILY 07/28/21 07/28/22 07/28/22 History hr,extended release ketorolac 0.5 % eye drops 1 drp ophthalmic (eye) BID 07/28/21 07/28/2222 History magnesium 250 mg tablet 250 mg PO DAILY 07/28/21 07/28/22 07/28/22 History multivitamin 1 tab PO DAILY 07/28/21 07/28/22 07/28/22 History furosemide 20 mg tablet 40 mg PO QAM 12/17/21 07/28/22 07/28/22 History omeprazole 20 mg capsule,delayed 40 mg PO BEDTIME 12/17/21 07/28/22 07/27/22 History release losartan 100 mg tablet 100 mg PO DAILY 02/04/22 07/28/22 07/28/22 History meloxicam 15 mg tablet 15 mg PO DAILY 05/06/22 07/28/22 07/28/22 History turmeric 400 mg capsule 400 mg PO DAILY 05/06/22 07/28/22 07/28/22 History vitamin E (dl, acetate) 180 mg 180 mg PO DAILY 07/28/22 07/28/22 07/28/22 History (400 unit) capsule Physical Exam Vital Signs: Vital Signs: Last Vital Signs Temp 97.9 F 07/29/22 14:17 Pulse 110 H 07/29/22 14:17 Resp 22 H 07/29/22 14:17 BP 115/78 07/29/22 14:17 Pulse Ox 96 07/29/22 14:51 O2 Del Method 07/29/22 14:51 O2 Flow Rate 2 07/29/22 14:51 BMI result Body Mass Index 30.7 GENERAL APPEARANCE: in no acute distress, pleasant. NECK: no carotid bruit, no jugular venous distention. SKIN: no suspicious lesions, warm and dry. HEART: no murmurs, irregular rate and rhythm. LUNGS: clear to auscultation bilaterally. ABDOMEN: soft, nontender. EXTREMITIES: no edema. PERIPHERAL PULSES: equal. NEUROLOGIC: No gross deficits, AAO X 3 Objective Labs and Meds Result diagrams: 07/28/22 19:44 07/28/22 19:44 Lab results: Laboratory Results - last 24 hr 07/28/22 07/28/22 07/28/22 19:44 19:44 19:44 WBC 11.3 H RBC 4.50 Hgb 15.0 Hct 44.0 MCV 97.8 MCH 33.3 H MCHC 34.1 RDW 12.3 Plt Count 274 MPV 8.8 L Immature Gran % (Auto) 1.1 H Neut % (Auto) 69.6 Lymph % (Auto) 16.2 L [place] % (Auto) 11.6 H Eos % (Auto) 1.2 Baso % (Auto) 0.3 Lymph # (Auto) 1.8 [place] # (Auto) 1.3 H Eos # (Auto) 0.1 Baso # (Auto) 0.0 Abs Immat Gran (auto) 0.12 H Absolute Neuts (auto) 7.9 Absolute Nucleated RBC 0.000 Nucleated RBC % (auto) 0.0 Sodium 142 Potassium 3.9 Chloride 108 Carbon Dioxide 24 Anion Gap 14 BUN 32 H Creatinine 1.20 Estim Creat Clear Calc 41.3 Estimated GFR 43 POC Glucose Random Glucose 159 H Calcium 8.8 Magnesium 2.1 Total Bilirubin 1.0 AST 32 H ALT 34 H Alkaline Phosphatase 90 Troponin I High Sens 16.8 B-Natriuretic Peptide Total Protein 6.3 L Albumin 3.9 COVID-19 ([facility]IANA) COVID-19 [facility] Com 07/28/22 07/29/22 07/29/22 19:44 01:37 07:19 WBC RBC Hgb Hct MCV MCH MCHC RDW Plt Count MPV Immature Gran % (Auto) Neut % (Auto) Lymph % (Auto) [place] % (Auto) Eos % (Auto) Baso % (Auto) Lymph # (Auto) [place] # (Auto) Eos # (Auto) Baso # (Auto) Abs Immat Gran (auto) Absolute Neuts (auto) Absolute Nucleated RBC Nucleated RBC % (auto) Sodium Potassium Chloride Carbon Dioxide Anion Gap BUN Creatinine Estim Creat Clear Calc Estimated GFR POC Glucose 118 H Random Glucose Calcium Magnesium Total Bilirubin AST ALT Alkaline Phosphatase Troponin I High Sens B-Natriuretic Peptide 369 H Total Protein Albumin COVID-19 (KIANA) Negative COVID-19 Clin Com See Note Imaging Radiologist's impression: Impressions Chest X-Ray 07/28/22 19:31 IMPRESSION: Minimal scarring or atelectasis right middle lobe and left lung base unchanged to previous CT chest 12/25/2021. No acute pneumonic process seen. Assessment and Plan (1) Atrial fibrillation with RVR: Status: Acute Plan Pleasant 77-year-old female with known history of chronic heart failure and paroxysmal atrial fibrillation presenting with palpitations and noticed to be in AFib with RVR. She had 3 ablations in the past. She also was cardioverted in the past. She reports being on amiodarone at 1 stage as well as being admitted to the hospital for sotalol load. Currently she is quite symptomatic from atrial fibrillation and I think she needs cardioversion. We will arrange it today. Keep NPO going forward. She should continue her medications as before specifically Xarelto. She is sure she has not missed her Xarelto in the last 6 weeks and I think we can perform cardioversion without ANGELA. She is short of breath but currently not overloaded by my exam. Hopefully with cardioversion she can stay out of atrial fibrillation. Dr. Brennan's plan based on chart review was to start her on flecainide in case she develops recurrent atrial fibrillation. We will start on flecainide. Thank you for allowing me to participate in the care of your patient. Please feel free to contact me if you have any questions. Time Spent With Patient Time: Total time managing care of this patient today ____ minutes. Procedures Date of Service Date of Service: 07/29/22
--- NOTE | 2022-07-29 16:58 | MHC.SHP ---
Pre-Procedural Eval Section A Date of Service: 07/29/22 The patient is an INPATIENT: Yes Section B Chief Complaint: afib rvr Details of Present Illness: Here for cardioversion Allergies: Allergies Allergy/AdvReac Type Severity Reaction Status Date / Time aspirin [ASPIRIN] Allergy Unknown RASH Verified 02/05/22 15:11 Sulfa (Sulfonamide Allergy Unknown RASH Verified 02/05/22 15:11 Antibiotics) [SULFA (SULFONAMIDE ANTIBIOTICS)] adhesives AdvReac Unknown Uncoded 07/29/22 16:09 Plan Diagnosis/Plan: Unchanged I have reviewed the history and physical and performed a pertinent physical examination on my patient. No changes have occurred unless specified. Time Spent With Patient Time: Total time managing care of this patient today ____ minutes.
--- NOTE | 2022-07-29 16:58 | HO.CARDIVERS ---
Cardioversion Procedure Note Cardioversion Date of Procedure: 07/29/22 Ordering Provider: Rickie Allison Performing Provider: Rickie Allison Indication for Procedure: Afib with RVR Performed with Transesophageal Echo: No Consent: Verbal and Written consent was obtained from the patient before starting. The patient was made aware of the risk of stroke, aspiration and failure. Procedure: After consent obtained, defib pads were attached and the patient was sedated by the anesthesia team. Once adequate sedation achieved, single synchronized shock of 200 joules was administered which converted the patient to sinus rhythm. She was left with Anesthesia for recovery in his stable condition. Complications: None Recommendations: Continue Xarelto. Adding flecainide 50 mg twice a day. Decreasing diltiazem to 120 mg from tomorrow.
[2022-07-29] MEDS: Rivaroxaban 20 MG TABLET PO (20:27)
[2022-07-29] MEDS: Omeprazole 40 MG CAPSULE.DR PO (20:27)
[2022-07-29] MEDS: Flecainide Acetate 50 MG TABLET PO (20:27)
[2022-07-29] MEDS: Gabapentin 300 MG CAPSULE 600 MG PO (20:27)
[2022-07-29] MEDS: Montelukast Sodium 10 MG TABLET PO (20:27)
[2022-07-30] VITALS: BP 129/29; PULSE 60; RESP 20; TEMP 36.1; O2SAT 97
--- NOTE | 2022-07-30 | ECG_ITS ---
Test Reason : Post cardioversion Blood Pressure : / mmHG Vent. Rate : 061 BPM Atrial Rate : 061 BPM P-R Int : 156 ms QRS Dur : 084 ms QT Int : 422 ms P-R-T Axes : 075 026 055 degrees QTc Int : 424 ms Normal sinus rhythm Nonspecific ST and T wave abnormality Abnormal ECG When compared to the previous EKG of Atrial fibrillation not present anymore Referred By: Jud Martínez Electronically Signed By:Rickie Allison
[2022-07-30 03:49] VITALS: BP 124/65; PULSE 58; RESP 20; TEMP 35.9; O2SAT 98
[2022-07-30 06:22] LABS: Hematocrit 41.1 % (37.0-47.0); Hemoglobin 13.8 g/dl (12.0-16.0); Mean Corpuscular HGB Conc 33.6 g/dl (31.0-35.0); Mean Corpuscular Hemoglobin 32.9 pg (27.0-33.0); Mean Corpuscular Volume 98.1 fL (80.0-98.0); Mean Platelet Volume 8.8 fL (9.4-12.3); Platelet Count 222 X10*3/uL (160-400); Red Blood Count 4.19 X10*6/uL (4.20-5.50); Red Cell Distribution Width 12.2 % (11.0-16.0); White Blood Count 10.6 X10*3/uL (4.8-10.8)
[2022-07-30 06:48] LABS: Anion Gap 12 (12-20); Blood Urea Nitrogen 26 mg/dL (9-16); Calcium 8.6 mg/dL (8.4-10.2); Carbon Dioxide 26 mmol/L (22-29); Chloride 109 mmol/L (96-108); Creatinine Clr Calc Pharmacy 67.9; Estimated Glomerular Filt Rate > 60; Glucose Fasting 91 mg/dL (60-99); Magnesium 2.1 mg/dL (1.6-2.6); Potassium 3.7 mmol/L (3.3-5.1); Sodium 143 mmol/L (135-145)
[2022-07-30 07:17] VITALS: BP 152/84; PULSE 67; RESP 20; TEMP 36.1; O2SAT 95
[2022-07-30] MEDS: Atorvastatin Calcium 40 MG TABLET PO (09:18)
[2022-07-30] MEDS: carvediloL 25 MG TABLET PO (09:18)
[2022-07-30] MEDS: Ascorbic Acid 250 MG TABLET PO (09:18)
[2022-07-30] MEDS: Flecainide Acetate 50 MG TABLET PO (09:18)
[2022-07-30] MEDS: dilTIAZem HCL CD 120 MG CAP.ER.DEG PO (09:18)
[2022-07-30] MEDS: Losartan Potassium 50 MG TABLET 100 MG PO (09:18)
[2022-07-30] MEDS: Multivitamin TABLET 1 TAB PO (09:18)
[2022-07-30] MEDS: Loratadine 10 MG TABLET PO (09:18)
[2022-07-30] MEDS: Cholecalciferol (Vitamin D3) 10 MCG TABLET PO (09:18)
[2022-07-30] MEDS: Furosemide 40 MG TABLET PO (09:19)
[2022-07-30] MEDS: 0.9 % Sodium Chloride Flush 3 ML SYRINGE IVFLUSH (09:19)
[2022-07-30] MEDS: Vitamin E (Dl,Tocopheryl Acet) 180 MG (400 UNIT) CAPSULE PO (09:19)
[2022-07-30] MEDS: Magnesium Oxide 400 MG TABLET PO (09:20)
--- NOTE | 2022-07-30 10:05 | P.DS_ITS ---
DS: Providers Provider Date of Service: 07/30/22 Date of admission: 07/29/22 00:50 Primary care physician: Yair Huff MD Consults: 07/29/22 00:48 Consult to Cardiology Routine Consulting Provider: Rickie Allison Reason for consultation: afib rvr Has provider been notified: Yes DS: Diagnosis Discharge Diagnosis (1) Atrial fibrillation with RVR: Status: Acute DS: Summary Hospital Course Hospital Course: HPI From admission H&P: 77-year-old female with past medical history of paroxysmal AFib, chronic diastolic heart failure, HTN, pulmonary hypertension presented with palpitations. patient reports she was awoke without symtpoms on day of presentation then started to feel off having low energy and palpitations, decided to take pulse and noted it was elevated. patient has history of par oxysmal atrial fibrillation, she is compliant with meds cardizem 240mg daily and coreg 25mg bid. she has had multiple CV and ablations in past. denies chest pain, fever, chills, sob.' Hospital Course: Patient presented to the ED with palpitations and was diagnosed with a. fib with rvr. She was given IV push cardizem and subsequently started on IV cardizem drip. Despite maximal rate of 15, the patient remained symptomatic with uncontrolled rates. Decision was made for ANGELA cardioversion which was successfully completed. She was started on flecainide 50mg BID and her cardizem was decreased from 240 to 120. She was monitored on telemetry over night after the procedure and remained in sinus. She will be dishcarged home with f/u with cardiology. Time Spent with Patient Time attestation: Total time managing care of this patient today ____ minutes. Discharge coordination time: Greater than 30 minutes Quality: Safe Use of Opioids Does Pt have an Active Cancer Diagnosis on the Problem List?: No Quality: Stroke Does the patient have a stroke diagnosis?: No Physical Exam Vital Signs: Vital Signs: Last Vital Signs Temp 97.0 F 07/30/22 07:17 Pulse 67 07/30/22 07:17 Resp 20 07/30/22 07:17 BP 152/84 H 07/30/22 07:17 Pulse Ox 95 07/30/22 07:17 O2 Del Method 07/30/22 07:17 O2 Flow Rate 2 07/30/22 03:49 BMI result Body Mass Index 30.7 Const: Other: General - no acute distress, appears comfortable Cardiovascular - regular rate and rhythm, S1-S2 Lungs - normal respiratory effort, clear to auscultation bilaterally, no wheezing Abdomen - soft, nontender, no rebound or guarding Extremities - no edema bilaterally Neuro - awake and alert, no focal deficits DS: Data Data Completed and Pending Completed studies during hospitalization [Text1]: Procedures [facility] of Cardiac Rhythm, Single (07/27/21) Ultrasonography of Heart with Aorta, Transesophageal (07/27/21) Labs on day of discharge: Laboratory Results - last 24 hr 07/30/22 07/30/22 05:56 05:56 WBC 10.6 RBC 4.19 L Hgb 13.8 Hct 41.1 MCV 98.1 H MCH 32.9 MCHC 33.6 RDW 12.2 Plt Count 222 MPV 8.8 L Absolute Nucleated RBC 0.000 Nucleated RBC % (auto) 0.0 Sodium 143 Potassium 3.7 Chloride 109 H Carbon Dioxide 26 Anion Gap 12 BUN 26 H Creatinine 0.73 Estim Creat Clear Calc 67.9 Estimated GFR > 60 Fasting Glucose 91 Calcium 8.6 Magnesium 2.1 Discharge Plan Discharge Anticipated Discharge Date/Time: 07/30/22 10:02 Patient Disposition: Home, Self-Care Discharge Diagnosis: PAF with RVR Referrals: Yair Huff MD [Primary Care Provider] - 1 Week Discharge Medications: New flecainide 50 mg Tablet 50 mg PO BID Qty: 60 0RF diltiazem HCl [Cardizem CD] 120 mg Capsule,Extended Release 24hr 120 mg PO DAILY Qty: 30 0RF Protocol: Hold for SBP/HR < HOLD for SBP < : 90 HOLD for HR < : 60 Continued ipratropium-albuterol 0.5 mg-3 mg(2.5 mg base)/3 mL solution for nebulization 3 ml inhalation Q4-6H PRN (Reason: wheezing) 30 Days Qty: 180 6RF Xarelto 20 mg tablet 20 mg PO DAILY@1730 Qty: 90 3RF atorvastatin 40 mg tablet 40 mg PO DAILY 90 Days Qty: 90 3RF Jardiance 10 mg tablet 10 mg PO DAILY Qty: 30 2RF carvedilol 25 mg tablet 25 mg PO BID Qty: 60 5RF ketorolac 0.5 % Drops 1 drp OPHTHALMIC (EYE) BID coenzyme Q10 100 mg Tablet 100 mg PO DAILY Rx Instructions: patient unsure of her dose multivitamin Tablet 1 tab PO DAILY magnesium 250 mg Tablet 250 mg PO DAILY Rx Instructions: patient not sure of her dose ascorbic acid (vitamin C) 250 mg Tablet 250 mg PO DAILY cholecalciferol (vitamin D3) [Vitamin D3] 10 mcg (400 unit) Capsule 10 mcg PO DAILY Rx Instructions: patient not sure of her dose furosemide 20 mg tablet 40 mg PO QAM vitamin E (dl, acetate) 180 mg (400 unit) Capsule 180 mg PO DAILY montelukast 10 mg tablet 10 mg PO BEDTIME gabapentin 300 mg capsule 600 mg PO BEDTIME omeprazole 20 mg capsule,delayed release(DR/EC) 40 mg PO BEDTIME losartan 100 mg tablet 100 mg PO DAILY fexofenadine [Shea Allergy] 180 mg tablet 180 mg PO DAILY meloxicam 15 mg tablet 15 mg PO DAILY turmeric 400 mg capsule 400 mg PO DAILY Discontinued diltiazem HCl 240 mg Capsule,Extended Release 24 Hr 240 mg PO DAILY Discharge Orders: Discharge Order (Routine); Ordered 07/30/22 Ordered By: David Birch Diet: Advance to usual diet Activity on Discharge: As tolerated Stand Alone Forms: Patient Portal Discharge page Care Plan Goals: To stay healthy and out of the hospital. Health Concerns: A. Betty with RVR Plan of Treatment: Take Flecainide 50mg twice daily You cardizem (Diltiazem) dose has been decreased from 240 to 120 Assessment: see d/c summary
--- NOTE | 2022-07-30 10:07 | MHC.CM.PN ---
pt dcd home no skilled servceis ordered by
[2022-07-30 11:02] VITALS: BP 117/59; PULSE 70; RESP 18; TEMP 36.3; O2SAT 92
--- NOTE | 2022-07-30 12:58 | P.PNCA_ITS ---
Subjective Subjective Date of Service: 07/30/22 Principal diagnosis: afib, s/p CVR Interval history: Seen at 1115. Today she report having a hoarse voice and intermittent cough which she feels is from the dry hospital air. She does not believe she is getting ill. No longer feeling any heart palpitation. No chest pains, sob, dizziness. Has been up in room. Feels ready to go home. Tele showing SR, rates 60s. Review of Systems Review of Systems as above Yes all other systems are reviewed and are negative Physical Exam Vital Signs: Last Vital Signs Temp 97.3 F 07/30/22 11:02 Pulse 70 07/30/22 11:02 Resp 18 07/30/22 11:02 BP 117/59 L 07/30/22 11:02 Pulse Ox 92 07/30/22 11:02 O2 Del Method 07/30/22 11:02 O2 Flow Rate 2 07/30/22 03:49 BMI result Body Mass Index 30.7 Const General: cooperative, healthy appearing, comfortable and no acute distress Neck Neck: Yes normal visual inspection and Yes no JVD Resp Effort & Inspection: normal respiratory effort Auscultation: clear to auscultation bilaterally, no crackles, no rales, no rhonchi and no wheezes Cardio Rate: regular rate Rhythm: regular rhythm Heart sounds: S1 normal heart sound present, S2 normal heart sound present, no gallops, no murmurs and no rubs GI Inspection: Yes normal to inspection Skin General skin exam: no rashes or lesions noted Extrem General: Yes normal to inspection Psych Appearance: grossly normal Mental Status: mental status grossly normal Speech and movement: Normal speech and movement present Objective Labs and Meds Result diagrams: 07/30/22 05:56 07/30/22 05:56 Lab results: Laboratory Results - last 24 hr 07/30/22 07/30/22 05:56 05:56 WBC 10.6 RBC 4.19 L Hgb 13.8 Hct 41.1 MCV 98.1 H MCH 32.9 MCHC 33.6 RDW 12.2 Plt Count 222 MPV 8.8 L Absolute Nucleated RBC 0.000 Nucleated RBC % (auto) 0.0 Sodium 143 Potassium 3.7 Chloride 109 H Carbon Dioxide 26 Anion Gap 12 BUN 26 H Creatinine 0.73 Estim Creat Clear Calc 67.9 Estimated GFR > 60 Fasting Glucose 91 Calcium 8.6 Magnesium 2.1 Progress Note: A&P Assessment and plan (1) Atrial fibrillation with RVR: Status: Acute Assessment and Plan: Hx of afib with ablations X3 in past. Presented with palpitations and sob, recurrent Afib RVR. Initially treated for rate control then underwent cardioversion yesterday with successful conversion to SR. Tele showing ongoing SR, rates average in 60s. Her home Diltiazem 240mg was reduced to 120mg daily. She was started on Flecanide 50mg bid and continued on Carvedilol 25mg bid. Feels well today and ready for discharge. Continue current meds including Xar elto, uninterrupted for anticoagulation. Can be discharged from cardiology perspecive. We will arrange for EKG and Holter in 1 week and OV in few weeks. Time Spent With Patient Time: Total time managing care of this patient today _20___ minutes. Progress Note: Quality Stroke Does the patient have a stroke diagnosis?: No Procedures Date of Service Date of Service: 07/30/22
--- NOTE | 2022-07-30 15:19 | HO.POSTANES ---
Post Anesthesia Evaluation Post Anesthesia Evaluation Vital Signs: Vital Signs Temp Pulse Resp BP Pulse Ox O2 Del Method O2 Flow Rate 07/30/22 11:02 97.3 F 70 18 117/59 L 92 Room Air 07/30/22 07:17 97.0 F 67 20 152/84 H 95 Room Air 07/30/22 03:49 96.7 F L 58 20 124/65 98 Nasal Cannula 2 Anesthesia: General Mental Status: Awake Pain Control: Satisfactory Nausea/Vomiting: None Hydration: Adequate Anesthesia-Related Issues: No Anes. Related Issues
== END 2022-07-30 15:12 | disposition home or self-care (01) | DRG 309 ==
LOC: HO.ED 23:07 → HO.EDOVER 07-29 01:04 → HO.IMC 07-29 17:53
PROVIDERS: Internal Medicine Cardiovascular Disease; Nurse Practitioner Family; Admitting Provider Internal Medicine; Emergency Provider Emergency Medicine; PCP Family Medicine; Visit Provider Family Medicine
PROC: 5A2204Z Restoration of Cardiac Rhythm, Single (ICD-10-PCS; principal; 2022-07-29 13:30)
DX: I48.0 Paroxysmal atrial fibrillation (principal); I50.32 Chronic diastolic (congestive) heart failure; I11.0 Hypertensive heart disease with heart failure; E78.5 Hyperlipidemia, unspecified; J45.40 Moderate persistent asthma, uncomplicated; I27.20 Pulmonary hypertension, unspecified; Z20.822 Contact with and (suspected) exposure to COVID-19; Z88.2 Allergy status to sulfonamides; Z88.6 Allergy status to analgesic agent; Z79.899 Other long term (current) drug therapy
CPT/HCPCS: 36415; 71045; 80048; 80053; 82947; 83735; 83880; 84484; 85025; 85027; 87635; 92960; 93005; 99285

== ENCOUNTER → 2022-08-20 14:29 | Outpatient (REF) | payer MEDICARE, SELFPAY ==
--- NOTE | 2022-08-20 14:33 | HM_ITS ---
* Total monitoring time 3 days. * Underlying rhythm is sinus. Average ventricular rate 59/Min. About 54% the time, rate less than 60/Min. * No atrial fibrillation or flutter. * No significant pauses or AV blocks. * Rare PACs and PVCs with minimal burden. * No patient diary or marker. MTDD
--- NOTE | 2022-08-20 14:33 | ECG_ITS ---
Test Reason : Unspecified AFIB Blood Pressure : / mmHG Vent. Rate : 061 BPM Atrial Rate : 061 BPM P-R Int : 176 ms QRS Dur : 090 ms QT Int : 440 ms P-R-T Axes : 076 033 044 degrees QTc Int : 442 ms Normal sinus rhythm Normal ECG When compared with ECG of 29-JUL-2022 17:27, Sinus rhythm has replaced Atrial fibrillation Nonspecific T wave abnormality no longer evident in Lateral leads Referred By: Jud Martínez Electronically Signed By:Rickie Allison
== END ==
LOC: HO.CARD 14:29
PROVIDERS: Visit Provider Nurse Practitioner Family
DX: I48.91 Unspecified atrial fibrillation (principal)
CPT/HCPCS: 93005; 93242

== ENCOUNTER 2022-09-09 17:38 | Inpatient (IN) | payer MEDICARE, SELFPAY ==
--- NOTE | ~2022-09-09 | XR_ITS ---
EXAMINATION: XR CHEST CLINICAL INFORMATION: Persistent cough. COMPARISON: 09/09/2022 chest radiograph. TECHNIQUE: Frontal view of the chest was obtained. FINDINGS: Mild rotation of the right is suboptimal. No significant abnormality is noted involving the heart, lungs, mediastinum, bony thorax or soft tissues. XR/XR chest 1V IMPRESSION: No acute cardiopulmonary process.
--- NOTE | ~2022-09-09 | XR_ITS ---
EXAMINATION: XR CHEST CLINICAL INFORMATION: Pneumonia COMPARISON: 07/28/2022 TECHNIQUE: Frontal view of the chest was obtained. FINDINGS: No significant abnormality is noted involving the heart, lungs, mediastinum, bony thorax or soft tissues. XR/XR chest 1V IMPRESSION: Unremarkable examination.
--- NOTE | ~2022-09-09 | CT_ITS ---
EXAMINATION: CT ABDOMEN AND PELVIS WITH CONTRAST CLINICAL INFORMATION: Nausea and vomiting. COMPARISON: None TECHNIQUE: Multidetector volumetric images were obtained from the superior aspect of the liver through the pubic symphysis following administration 85 mL of Omnipaque 350 intravenous contrast. Sagittal and coronal reformatted images were obtained on the technologist's workstation. Oral contrast: No This CT examination was performed using dose optimization techniques as appropriate, variously including the following: *Automated exposure control *Adjustment of mA and/or kV according to patient size (this includes techniques or standardized protocols for targeted exams where dose is matched to indication/reason for exam; i.e. extremities or head) *Use of iterative reconstruction technique DLP: 700 mGy-cm FINDINGS: LUNG BASES: Heart size enlarged. Lungs normally aerated. No pleural effusion. LIVER, GALLBLADDER, AND BILIARY TREE: The liver is normal in size, shape, and attenuation. No focal hepatic lesion or biliary ductal dilatation is present. The gallbladder is unremarkable with no evidence of radiopaque gallstones, gallbladder wall thickening, or obvious pericholecystic inflammatory changes. PANCREAS: Unremarkable. SPLEEN: Unremarkable. Spleen measures 11 cm AP ADRENAL GLANDS: Unremarkable. KIDNEYS AND URETERS: Bilateral renal cysts. No follow-up imaging is recommended for simple renal cyst. Kidneys are of normal size and contour with normal cortical thickness and enhancement. No renal or ureteral calculi. No hydronephrosis. BLADDER: Unremarkable. GASTROINTESTINAL TRACT: There are scattered diverticula of the colon. There is no diverticulitis. There is no bowel wall thickening /edema. There is no bowel obstruction. There is a moderate volume of stool in the colon. The appendix is normal . The small bowel loops are unremarkable. The stomach is normal. There is small hiatal hernia. ABDOMINAL WALL: No significant hernia is appreciated. LYMPH NODES: Normal. VASCULAR: Atherosclerotic vascular calcifications throughout the abdomen and pelvis. No aneurysm. PELVIC VISCERA: Uterus is anteverted and lobular calcifications consistent with multiple fibroids. OSSEOUS STRUCTURES: Multilevel degenerative spondylosis spine. Status post right hip replacement. CT/CT abdomen pelvis w IV con IMPRESSION: No acute abnormality CT scan abdomen pelvis. Fleischner guidelines were followed.
--- NOTE | 2022-09-09 17:41 | ECG_ITS ---
Test Reason : afib Blood Pressure : / mmHG Vent. Rate : 095 BPM Atrial Rate : 095 BPM P-R Int : 164 ms QRS Dur : 082 ms QT Int : 378 ms P-R-T Axes : 078 039 057 degrees QTc Int : 475 ms Normal sinus rhythm Nonspecific ST and T wave abnormality Prolonged QT Abnormal ECG When compared with ECG of 20-AUG-2022 14:46, Vent. rate has increased BY [address] changes Referred By: Generic ED Physician Electronically Signed By:Rickie Allison
[2022-09-09 18:08] VITALS: BP 155/95; PULSE 90; RESP 24; TEMP 36.6; O2SAT 97; BMI 30.7
--- NOTE | 2022-09-09 18:12 | ED.GENADULT ---
HPI - General Adult General Chief complaint: Weakness Stated complaint: dr ev gill difficulty Time Seen by Provider: 09/09/22 19:26 Related Data Home Medications Medication Instructions Recorded Confirmed gabapentin 300 mg capsule 600 mg PO BEDTIME 05/16/20 09/10/22 montelukast 10 mg tablet 10 mg PO BEDTIME 05/16/20 09/10/22 fexofenadine 180 mg tablet 180 mg PO DAILY 06/21/21 09/10/22 ([facility] All[facility]) ascorbic acid (vitamin C) 250 mg 250 mg PO DAILY 07/28/21 09/10/22 tablet cholecalciferol (vitamin D3) 10 10 mcg PO DAILY 07/28/21 09/10/22 mcg (400 unit) capsule (Vitamin D3) coenzyme Q10 100 mg tablet 100 mg PO DAILY 07/28/21 09/10/22 magnesium 250 mg tablet 250 mg PO DAILY 07/28/21 09/10/22 multivitamin 1 tab PO DAILY 07/28/21 09/10/22 furosemide 20 mg tablet 40 mg PO DAILY 12/17/21 09/10/22 omeprazole 20 mg capsule,delayed 40 mg PO BEDTIME 12/17/21 09/10/22 release losartan 100 mg tablet 100 mg PO DAILY 02/04/22 09/10/22 meloxicam 15 mg tablet 15 mg PO DAILY 05/06/22 09/10/22 turmeric 400 mg capsule 400 mg PO DAILY 05/06/22 09/10/22 vitamin E (dl, acetate) 180 mg 180 mg PO DAILY 07/28/22 09/10/22 (400 unit) capsule rivaroxaban 20 mg tablet (Xarelto) 20 mg PO DAILY@1700 09/10/22 09/10/22 Previous Rx's Medication Instructions Recorded ipratropium 0.5 mg-albuterol 3 mg 3 ml inhalation Q4-6H PRN wheezing 08/15/21 (2.5 mg base)/3 mL nebulization 30 days #180 mL soln atorvastatin 40 mg tablet 40 mg PO DAILY 90 days #90 tabs 03/13/22 empagliflozin 10 mg tablet 10 mg PO DAILY #30 tabs 03/13/22 (Jardiance) carvedilol 25 mg tablet 25 mg PO BID #60 tabs 07/21/22 diltiazem HCl 120 mg 120 mg PO DAILY #30 caps 08/26/22 capsule,extended release 24 hr (Cardizem CD) flecainide 50 mg tablet 50 mg PO BID #60 tabs 08/26/22 benzonatate 100 mg capsule 100 mg PO BID PRN cough #14 caps 09/13/22 flecainide 50 mg tablet 150 mg PO BID #60 tabs 09/13/22 Allergies Allergy/AdvReac Type Severity Reaction Status Date / Time aspirin [ASPIRIN] Allergy Unknown RASH Verified 02/05/22 15:11 Sulfa (Sulfonamide Allergy Unknown RASH Verified 02/05/22 15:11 Antibiotics) [SULFA (SULFONAMIDE ANTIBIOTICS)] adhesives AdvReac Unknown Uncoded 07/29/22 16:09 [facility] Past Medical History Medical History Atrial fibrillation with RVR Cardiomyopathy Chronic heart failure with preserved ejection fraction (HFpEF) Diastolic dysfunction History of cardiomyopathy History of cardioversion HTN (hypertension) Paroxysmal atrial fibrillation Paroxysmal atrial fibrillation Pulmonary hypertension Pulmonary hypertension Surgical History History of back surgery Hx of cardiac cath Hx of hand surgery Hx of total hip arthroplasty S/P cardiac catheterization Family History Family History Father Cancer Mother Stroke Brother Atrial fibrillation Sister Cardiovascular disease Atrial fibrillation Social History Social History Household Members: None Housing: House Do you presently have visiting nurse or other home services: No Alcohol intake: never Patient Tobacco Use Status: Never used Tobacco Second Hand Smoke Exposure: No service: No Current occupational status: retired Physical Exam ED Vital Signs: Vital Signs - 24 hr 09/09/22 18:08 Temperature 98 F Pulse Rate 90 Respiratory Rate 24 H Blood Pressure 155/95 H Pulse Oximetry 97 Oxygen Delivery Method Room Air BMI result Body Mass Index 30.7 Course Course Course Narrative: RME: 77 yold female with pmh of afib presents to the ED for SOB, nausea, vomitting, and weakness. Sent from PCP office. EKG normal sinus rhythm. labs, chest xray and SARS ordered. Patient will be sent to the ED immediatley once bed open. nurse aware Medications Administered Discontinued Medications Generic Name Dose Route Start Last Admin Trade Name Padmaja PRN Reason Stop Dose Admin Ascorbic Acid 250 mg 09/11/22 09:00 09/13/22 09:22 Ascorbic Acid 250 Mg Tablet PO 250 mg DAILY ROSENDA Administration Atorvastatin Calcium 40 mg 09/10/22 11:30 09/13/22 09:22 Atorvastatin Calcium 40 Mg Tablet PO 40 mg DAILY ROSENDA Administration Carvedilol 25 mg 09/10/22 00:30 09/13/22 09:22 Carvedilol 25 Mg Tablet PO 25 mg BID ROSENDA Administration Protocol Diltiazem HCl 20 mg 09/10/22 00:15 09/10/22 00:52 Diltiazem Hcl 50 Mg/10 Ml Vial IVPUSH 09/10/22 00:16 20 mg STAT STA Administration Diltiazem HCl 120 mg 09/11/22 21:00 09/12/22 21:06 Diltiazem Hcl Cd 120 Mg Cap.Er.Deg PO 120 mg BEDTIME ROSENDA Administration Protocol Empagliflozin 10 mg 09/10/22 11:30 09/13/22 09:22 Empagliflozin 10 Mg Tablet PO 10 mg DAILY ROSENDA Administration Enoxaparin Sodium 80 mg 09/10/22 00:01 09/10/22 00:51 Enoxaparin Sodium 80 Mg/0.8 Ml Syringe 1 mg/kg (80 mg) 09/10/22 00:02 80 mg SUBCUT Administration ONCE ONE Enoxaparin Sodium 80 mg 09/10/22 09:00 09/11/22 08:02 Enoxaparin Sodium 80 Mg/0.8 Ml Syringe 1 mg/kg (80 mg) 80 mg SUBCUT Administration BID [facility] Flecainide Acetate 50 mg 09/10/22 11:30 09/10/22 12:01 Flecainide Acetate 50 Mg Tablet PO 50 mg BID ROSENDA Administration Flecainide Acetate 200 mg 09/10/22 14:28 09/10/22 14:36 Flecainide Acetate 50 Mg Tablet PO 09/10/22 14:29 200 mg ONCE ONE Administration Flecainide Acetate 150 mg 09/11/22 21:00 09/13/22 09:21 Flecainide Acetate 50 Mg Tablet PO 150 mg BID ROSENDA Administration Furosemide 40 mg 09/10/22 11:30 09/13/22 09:22 Furosemide 40 Mg Tablet PO 40 mg DAILY ROSENDA Administration Protocol Gabapentin 600 mg 09/10/22 21:00 09/12/22 21:07 Gabapentin 300 Mg Capsule PO 600 mg BEDTIME ROSENDA Administration Sodium Chloride 1,000 mls @ 999 mls/hr 09/09/22 20:00 09/09/22 21:36 Ns IV 09/09/22 21:00 Infused .Q1H1M ROSENDA Infusion Magnesium Sulfate/Dextrose 1 gm in 100 mls @ 100 mls/hr 09/10/22 14:53 09/10/22 17:04 Magnesium Sulfate/D5w IV 09/10/22 15:52 Infused ONCE ONE Infusion Lactated Ringer's 1,000 mls @ 50 mls/hr 09/11/22 08:15 09/11/22 11:57 Lr IVCONT Infused .Q20H ROSENDA Infusion Amiodarone HCl 150 mg in 100 mls @ 618 mls/hr 09/11/22 10:45 09/11/22 11:36 Nexterone IV 09/11/22 10:54 Infused ONCE ONE Infusion Magnesium Sulfate/Dextrose 1 gm in 100 mls @ 100 mls/hr 09/11/22 12:17 09/11/22 14:28 Magnesium Sulfate/D5w IV 09/11/22 13:16 Infused ONCE ONE Infusion Iohexol 100 ml 09/09/22 21:21 09/09/22 21:22 Iohexol 350 Mg/Ml 100 Ml Infus..Btl IV 09/09/22 21:22 85 ml ONCE ONE Administration Loratadine 10 mg 09/11/22 09:00 09/13/22 09:22 Loratadine 10 Mg Tablet PO 10 mg DAILY ROSENDA Administration Losartan Potassium 100 mg 09/10/22 11:30 09/13/22 09:22 Losartan Potassium 50 Mg Tablet PO 100 mg DAILY ROSENDA Administration Protocol Magnesium Oxide 200 mg 09/11/22 09:00 09/13/22 09:23 Magnesium Oxide 400 Mg Tablet PO 200 mg DAILY ROSENDA Administration Metoprolol Tartrate 5 mg 09/09/22 22:38 09/09/22 22:57 Metoprolol Tartrate 5 Mg/5 Ml Vial IVPUSH 09/09/22 22:39 5 mg ONCE ONE Administration Metoprolol Tartrate 5 mg 09/09/22 23:23 09/09/22 23:43 Metoprolol Tartrate 5 Mg/5 Ml Vial IVPUSH 09/09/22 23:24 5 mg ONCE ONE Administration Montelukast Sodium 10 mg 09/10/22 21:00 09/12/22 21:07 Montelukast Sodium 10 Mg Tablet PO 10 mg BEDTIME ROSENDA Administration Multivitamins/Vitamin C 1 tab 09/11/22 09:00 09/13/22 09:22 Multivitamin Tablet PO 1 tab DAILY ROSENDA Administration Naproxen 500 mg 09/10/22 21:00 09/10/22 19:56 Naproxen 500 Mg Tablet PO 500 mg BID ROSENDA Administration Omeprazole 40 mg 09/10/22 21:00 09/12/22 21:07 Omeprazole 40 Mg Capsule.Dr PO 40 mg BEDTIME ROSENDA Administration Potassium Chloride 40 meq 09/10/22 07:42 09/10/22 08:25 Potassium Chloride Packet 20 Meq Packet PO 09/10/22 07:43 40 meq ONCE ONE Administration Potassium Chloride 40 meq 09/11/22 09:07 09/11/22 11:46 Potassium Chloride Er 20 Meq Tab.Er.Prt PO 09/11/22 09:08 40 meq ONCE ONE Administration Potassium Chloride 20 meq 09/11/22 12:39 09/11/22 12:50 Potassium Chloride Er 20 Meq Tab.Er.Prt PO 09/11/22 12:40 20 meq ONCE ONE Administration Potassium Chloride 40 meq 09/12/22 09:47 09/12/22 16:21 Potassium Chloride Er 20 Meq Tab.Er.Prt PO 09/12/22 09:48 40 meq ONCE ONE Administration Rivaroxaban 20 mg 09/11/22 17:00 09/12/22 16:22 Rivaroxaban 20 Mg Tablet PO 20 mg DAILY@1700 [facility] Administration Sodium Chloride 3 ml 09/10/22 08:00 09/13/22 09:21 0.9 % Sodium Chloride Flush 3 Ml Syringe IVFLUSH 3 ml QSHIFT [facility] Administration Sodium Zirconium Cyclosilicate 10 gm 09/13/22 07:45 09/13/22 11:15 Sodium Zirconium Cyclosilicate 10 Gm Powd.Pack PO 09/13/22 07:46 10 gm ONCE ONE Administration Vitamin D 10 mcg 09/11/22 09:00 09/13/22 09:21 Cholecalciferol (Vitamin D3) 10 Mcg Tablet PO 10 mcg DAILY ROSENDA Administration Vitamin E 180 mg 09/11/22 09:00 09/13/22 09:22 Vitamin E (Dl,Tocopheryl Acet) 180 Mg (400 Unit) Capsule PO 180 mg DAILY ROSENDA Administration Medical Decision Making Lab Data 09/10/22 06:10 09/13/22 12:48 Labs: Lab Results 09/09/22 09/09/22 09/09/22 Range/Units 19:12 19:17 19:17 WBC 7.1 (4.8-10.8) X10*3/uL RBC 5.08 D (4.20-5.50) X10*6/uL Hgb 16.6 H D (12.0-16.0) g/dl Hct 47.8 H (37.0-47.0) % MCV 94.1 (80.0-98.0) fL MCH 32.7 (27.0-33.0) pg MCHC 34.7 (31.0-35.0) g/dl RDW 12.0 (11.0-16.0) % Plt Count 177 (160-400) X10*3/uL MPV 8.8 L (9.4-12.3) fL Immature Gran % (Auto) 0.3 (0.0-0.4) % Neut % (Auto) 76.3 H (45-73) % Lymph % (Auto) 11.7 L (20-40) % Gilmer % (Auto) 11.0 (2-11) % Eos % (Auto) 0.3 (0-4) % Baso % (Auto) 0.4 (0-2) % Lymph # (Auto) 0.8 L (1.2-4.9) X10*3/uL Gilmer # (Auto) 0.8 (0.1-1.2) X10*3/uL Eos # (Auto) 0.0 (0.0-0.4) X10*3/uL Baso # (Auto) 0.0 (0.0-0.2) X10*3/uL Abs Immat Gran (auto) 0.02 (0.00-0.03) X10*3/uL Absolute Neuts (auto) 5.4 (2.0-8.3) x10*3/uL Absolute Nucleated RBC 0.000 (0.0-0.012) X10*3/uL Nucleated RBC % (auto) 0.0 (0.0-0.2) /100WBC PT 15.3 H (10.0-13.1) SEC INR 1.3 H (0.9-1.1) APTT 32.1 (26.0-36.4) SEC Sodium (135-145) mmol/L Potassium (3.3-5.1) mmol/L Chloride (96-108) mmol/L Carbon Dioxide (22-29) mmol/L Anion Gap (12-20) BUN (9-16) mg/dL Creatinine (0.5-1.4) mg/dL Estim Creat Clear Calc Estimated GFR Random Glucose (60-115) mg/dL Calcium (8.4-10.2) mg/dL Total Bilirubin (0.0-1.0) mg/dL AST (5-31) U/L ALT (0-31) U/L Alkaline Phosphatase (39-117) U/L Troponin I High Sens (<3.5-17.0) ng/L B-Natriuretic Peptide (<100) pg/mL Total Protein (6.5-8.0) g/dL Albumin (3.5-5.0) g/dL TSH (0.32-4.0) uIU/mL Influenza Type A (PCR) NEGATIVE (Negative) Influenza Type B (PCR) NEGATIVE (Negative) RSV RNA Qual (PCR) NEGATIVE (Negative) SARS-CoV-2 RNA (RT-PCR) NEGATIVE (Negative) 09/09/22 09/09/22 09/09/22 Range/Units 19:17 19:17 19:17 WBC (4.8-10.8) X10*3/uL RBC (4.20-5.50) X10*6/uL Hgb (12.0-16.0) g/dl Hct (37.0-47.0) % MCV (80.0-98.0) fL MCH (27.0-33.0) pg MCHC (31.0-35.0) g/dl RDW (11.0-16.0) % Plt Count (160-400) X10*3/uL MPV (9.4-12.3) fL Immature Gran % (Auto) (0.0-0.4) % Neut % (Auto) (45-73) % Lymph % (Auto) (20-40) % Gilmer % (Auto) (2-11) % Eos % (Auto) (0-4) % Baso % (Auto) (0-2) % Lymph # (Auto) (1.2-4.9) X10*3/uL Gilmer # (Auto) (0.1-1.2) X10*3/uL Eos # (Auto) (0.0-0.4) X10*3/uL Baso # (Auto) (0.0-0.2) X10*3/uL Abs Immat Gran (auto) (0.00-0.03) X10*3/uL Absolute Neuts (auto) (2.0-8.3) x10*3/uL Absolute Nucleated RBC (0.0-0.012) X10*3/uL Nucleated RBC % (auto) (0.0-0.2) /100WBC PT (10.0-13.1) SEC INR (0.9-1.1) APTT (26.0-36.4) SEC Sodium 141 (135-145) mmol/L Potassium 3.9 (3.3-5.1) mmol/L Chloride 104 (96-108) mmol/L Carbon Dioxide 20 L (22-29) mmol/L Anion Gap 21 H (12-20) BUN 20 H (9-16) mg/dL Creatinine 1.04 (0.5-1.4) mg/dL Estim Creat Clear Calc 47.7 Estimated GFR 51 Random Glucose 138 H (60-115) mg/dL Calcium 9.3 D (8.4-10.2) mg/dL Total Bilirubin 1.9 H (0.0-1.0) mg/dL AST 42 H (5-31) U/L ALT 39 H (0-31) U/L Alkaline Phosphatase 84 (39-117) U/L Troponin I High Sens 79.1 H* D (<3.5-17.0) ng/L B-Natriuretic Peptide 164 H (<100) pg/mL Total Protein 7.3 (6.5-8.0) g/dL Albumin 4.5 (3.5-5.0) g/dL TSH 2.61 (0.32-4.0) uIU/mL Influenza Type A (PCR) (Negative) Influenza Type B (PCR) (Negative) RSV RNA Qual (PCR) (Negative) SARS-CoV-2 RNA (RT-PCR) (Negative) 09/09/22 Range/Units 23:26 WBC (4.8-10.8) X10*3/uL RBC (4.20-5.50) X10*6/uL Hgb (12.0-16.0) g/dl Hct (37.0-47.0) % MCV (80.0-98.0) fL MCH (27.0-33.0) pg MCHC (31.0-35.0) g/dl RDW (11.0-16.0) % Plt Count (160-400) X10*3/uL MPV (9.4-12.3) fL Immature Gran % (Auto) (0.0-0.4) % Neut % (Auto) (45-73) % Lymph % (Auto) (20-40) % Gilmer % (Auto) (2-11) % Eos % (Auto) (0-4) % Baso % (Auto) (0-2) % Lymph # (Auto) (1.2-4.9) X10*3/uL Gilmer # (Auto) (0.1-1.2) X10*3/uL Eos # (Auto) (0.0-0.4) X10*3/uL Baso # (Auto) (0.0-0.2) X10*3/uL Abs Immat Gran (auto) (0.00-0.03) X10*3/uL Absolute Neuts (auto) (2.0-8.3) x10*3/uL Absolute Nucleated RBC (0.0-0.012) X10*3/uL Nucleated RBC % (auto) (0.0-0.2) /100WBC PT (10.0-13.1) SEC INR (0.9-1.1) APTT (26.0-36.4) SEC Sodium (135-145) mmol/L Potassium (3.3-5.1) mmol/L Chloride (96-108) mmol/L Carbon Dioxide (22-29) mmol/L Anion Gap (12-20) BUN (9-16) mg/dL Creatinine (0.5-1.4) mg/dL Estim Creat Clear Calc Estimated GFR Random Glucose (60-115) mg/dL Calcium (8.4-10.2) mg/dL Total Bilirubin (0.0-1.0) mg/dL AST (5-31) U/L ALT (0-31) U/L Alkaline Phosphatase (39-117) U/L Troponin I High Sens 187.7 H* D (<3.5-17.0) ng/L B-Natriuretic Peptide (<100) pg/mL Total Protein (6.5-8.0) g/dL Albumin (3.5-5.0) g/dL TSH (0.32-4.0) uIU/mL Influenza Type A (PCR) (Negative) Influenza Type B (PCR) (Negative) RSV RNA Qual (PCR) (Negative) SARS-CoV-2 RNA (RT-PCR) (Negative) Discharge Plan Discharge Clinical Impression: Atrial fibrillation Patient Disposition: Admitted As Inpatient Interventions: Admission Worksheet (ED) Last Done: 09/10/22 04:03 Discharge Date/Time: 09/10/22 04:17
[2022-09-09 19:22] LABS: MANUAL DIFF FLAG NO
[2022-09-09 19:23] LABS: Basophils Percent Auto 0.4 % (0-2); Eosinophils Percent Auto 0.3 % (0-4); Hematocrit 47.8 % (37.0-47.0); Hemoglobin 16.6 g/dl (12.0-16.0); Imm Gran Abs Auto 0.02 X10*3/uL (0.00-0.03); Imm Gran Pct Auto 0.3 % (0.0-0.4); Lymphocytes Absolute Auto 0.8 X10*3/uL (1.2-4.9); Lymphocytes Percent Auto 11.7 % (20-40); Mean Corpuscular HGB Conc 34.7 g/dl (31.0-35.0); Mean Corpuscular Hemoglobin 32.7 pg (27.0-33.0); Mean Corpuscular Volume 94.1 fL (80.0-98.0); Mean Platelet Volume 8.8 fL (9.4-12.3); Monocytes Absolute Auto 0.8 X10*3/uL (0.1-1.2); Neutrophils Absolute Auto 5.4 x10*3/uL (2.0-8.3); Neutrophils Percent Auto 76.3 % (45-73); Platelet Count 177 X10*3/uL (160-400); Red Blood Count 5.08 X10*6/uL (4.20-5.50); White Blood Count 7.1 X10*3/uL (4.8-10.8)
[2022-09-09 19:30] LABS: INTERNATIONAL NORM RATIO 1.3 (0.9-1.1); Prothrombin Time 15.3 SEC (10.0-13.1)
[2022-09-09 19:32] LABS: Partial Thromboplastin Time 32.1 SEC (26.0-36.4)
[2022-09-09 19:41] LABS: Alanine Aminotransferase 39 U/L (0-31); Albumin Level 4.5 g/dL (3.5-5.0); Alkaline Phosphatase 84 U/L (39-117); Anion Gap 21 (12-20); Aspartate Amino Transferase 42 U/L (5-31); Bilirubin Total 1.9 mg/dL (0.0-1.0); Blood Urea Nitrogen 20 mg/dL (9-16); Calcium 9.3 mg/dL (8.4-10.2); Carbon Dioxide 20 mmol/L (22-29); Chloride 104 mmol/L (96-108); Creatinine Clr Calc Pharmacy 47.7; Estimated Glomerular Filt Rate 51; Glucose Random 138 mg/dL (60-115); Potassium 3.9 mmol/L (3.3-5.1); Sodium 141 mmol/L (135-145); Total Protein 7.3 g/dL (6.5-8.0)
[2022-09-09 19:49] LABS: B Type Natriuretic Peptide 164 pg/mL (<100)
[2022-09-09 20:00] LABS: Influenza A PCR NEGATIVE (Negative); Influenza B PCR NEGATIVE (Negative); Resp Syncy Virus RNA Qual PCR NEGATIVE (Negative); SARS COV2 PCR INHOUSE NEGATIVE (Negative)
--- NOTE | 2022-09-09 20:02 | ED_ITS ---
HPI - Weakness General Chief complaint: Weakness Stated complaint: dr ev gill difficulty Time Seen by Provider: 09/09/22 19:26 History of Present Illness HPI Narrative: Patient is a 77-year-old female with a history of atrial fibrillation currently on Xarelto presented today with having generalized malaise weakness nausea vomiting. No history of abdominal surgery. Been taking nausea medication. Denies any coughing congestion upper respiratory symptoms. Patient is vaccinated for COVID. Denies noticing any bloody stool. No diarrhea. Patient is from home. No travel hx. no hx of bowel obs. no abd surgery Related Data Home Medications Medication Instructions Recorded Confirmed gabapentin 300 mg capsule 600 mg PO BEDTIME 05/16/20 07/28/22 montelukast 10 mg tablet 10 mg PO BEDTIME 05/16/20 07/28/22 fexofenadine 180 mg tablet 180 mg PO DAILY 06/21/21 07/28/22 (Shea Allergy) ascorbic acid (vitamin C) 250 mg 250 mg PO DAILY 07/28/21 07/28/22 tablet cholecalciferol (vitamin D3) 10 10 mcg PO DAILY 07/28/21 07/28/22 mcg (400 unit) capsule (Vitamin D3) coenzyme Q10 100 mg tablet 100 mg PO DAILY 07/28/21 07/28/22 ketorolac 0.5 % eye drops 1 drp ophthalmic (eye) BID 07/28/21 07/28/22 magnesium 250 mg tablet 250 mg PO DAILY 07/28/21 07/28/22 multivitamin 1 tab PO DAILY 07/28/21 07/28/22 furosemide 20 mg tablet 40 mg PO QAM 12/17/21 07/28/22 omeprazole 20 mg capsule,delayed 40 mg PO BEDTIME 12/17/21 07/28/22 release losartan 100 mg tablet 100 mg PO DAILY 02/04/22 07/28/22 meloxicam 15 mg tablet 15 mg PO DAILY 05/06/22 07/28/22 turmeric 400 mg capsule 400 mg PO DAILY 05/06/22 07/28/22 vitamin E (dl, acetate) 180 mg 180 mg PO DAILY 07/28/22 07/28/22 (400 unit) capsule Previous Rx's Medication Instructions Recorded ipratropium 0.5 mg-albuterol 3 mg 3 ml inhalation Q4-6H PRN wheezing 08/15/21 (2.5 mg base)/3 mL nebulization 30 days #180 mL soln rivaroxaban 20 mg tablet (Xarelto) 20 mg PO DAILY@1730 #90 tabs 01/20/22 atorvastatin 40 mg tablet 40 mg PO DAILY 90 days #90 tabs 03/13/22 empagliflozin 10 mg tablet 10 mg PO DAILY #30 tabs 03/13/22 (Jardiance) carvedilol 25 mg tablet 25 mg PO BID #60 tabs 07/21/22 diltiazem HCl 120 mg 120 mg PO DAILY #30 caps 08/26/22 capsule,extended release 24 hr (Cardizem CD) flecainide 50 mg tablet 50 mg PO BID #60 tabs 08/26/22 Allergies Allergy/AdvReac Type Severity Reaction Status Date / Time aspirin [ASPIRIN] Allergy Unknown RASH Verified 02/05/22 15:11 Sulfa (Sulfonamide Allergy Unknown RASH Verified 02/05/22 15:11 Antibiotics) [SULFA (SULFONAMIDE ANTIBIOTICS)] adhesives AdvReac Unknown Uncoded 07/29/22 16:09 Review of Systems Review of Systems: + n/v Yes all other systems are reviewed and are negative [facility] Past Medical History Attestation statement: The following information was validated with the patient. Medical History Atrial fibrillation with RVR Cardiomyopathy Chronic heart failure with preserved ejection fraction (HFpEF) Diastolic dysfunction History of cardiomyopathy History of cardioversion HTN (hypertension) Paroxysmal atrial fibrillation Paroxysmal atrial fibrillation Pulmonary hypertension Pulmonary hypertension Surgical History History of back surgery Hx of cardiac cath Hx of hand surgery Hx of total hip arthroplasty S/P cardiac catheterization Family History Family History Father Cancer Mother Stroke Brother Atrial fibrillation Sister Cardiovascular disease Atrial fibrillation Social History Social History Household Members: None Housing: House Do you presently have visiting nurse or other home services: No Alcohol intake: never Patient Tobacco Use Status: Never used Tobacco Smoked in Last 30 Days: No Use of substances other than those prescribed or required for medical reasons: No Advance Directives: No Advance Directives Information Provided: No service: No Current occupational status: retired Physical Exam Vital Signs: Vital Signs: Last Vital Signs Temp 97.9 F 09/09/22 23:06 Pulse 122 H 09/09/22 23:40 Resp 18 09/09/22 23:40 BP 162/91 H 09/09/22 23:40 Pulse Ox 94 09/09/22 23:40 O2 Del Method 09/09/22 23:40 O2 Flow Rate 2 09/09/22 20:41 BMI result Body Mass Index 30.7 Appearance: Alert. Oriented X3. No acute distress. Eyes: Pupils equal, round and reactive to light. ENT: Pharynx normal. Neck: Normal inspection. Neck supple. No lymph nodes noted. No crepitus CVS: Normal heart rate and rhythm. Pulses normal. Normal S1 and S2 Respiratory: No respiratory distress. Breath sounds normal. No Wheezing. No rales Abdomen: Soft and nontender. No rigidity. No distention. good BS x4 Skin: Skin warm and dry. Normal skin color. Normal skin turgor. Extremities: No lower extremity edema. Neurovascular intact to all extremities. No Lacerations. No Rash Neuro: Oriented X 3. No motor deficit. No sensory deficit. Moving all extermities. No slurred speech Medications Administered Discontinued Medications Generic Name Dose Route Start Last Admin Trade Name Freq PRN Reason Stop Dose Admin Sodium Chloride 1,000 mls @ 999 mls/hr 09/09/22 20:00 09/09/22 21:36 Ns IV 09/09/22 21:00 Infused .Q1H1M ROSENDA Infusion Iohexol 100 ml 09/09/22 21:21 09/09/22 21:22 Iohexol 350 Mg/Ml 100 Ml Infus..Btl IV 09/09/22 21:22 85 ml ONCE ONE Administration Metoprolol Tartrate 5 mg 09/09/22 22:38 09/09/22 22:57 Metoprolol Tartrate 5 Mg/5 Ml Vial IVPUSH 09/09/22 22:39 5 mg ONCE ONE Administration Metoprolol Tartrate 5 mg 09/09/22 23:23 09/09/22 23:43 Metoprolol Tartrate 5 Mg/5 Ml Vial IVPUSH 09/09/22 23:24 5 mg ONCE ONE Administration Medical Decision Making Medical Decision Making MDM Narrative: Patient might have been in atrial fibrillation Kayla initially. On arrival patient was in a sinus pattern. Labs ordered. Patient monitor in the emergency department. Troponin was elevated in 70s. Prior to getting a repeat troponin. Patient heart rate went to the 130s. A repeat EKG shows a atrial fibrillation pattern with heart rate in the 130s. Patient given Lopressor x2 doses with only moderate relief. Started on a dose of Cardizem. Patient's symptom seems to be controlled heart rate is approximately 110. Second troponin came back at greater than 100 question NSTEMI. Started patient on Lovenox. Patient's case discussed with the hospitalist team. Will admit further monitor. Currently in stable condition. Differential Diagnosis Differential Diagnoses: The differential diagnosis associated with the presentation includes Atrial fibrillation, NSTEMI Consult Healthcare Provider Management of the patient was discussed with: Hospitalist Lab Data [facility] Lab Attestation statement: I reviewed the patient's lab results. 09/09/22 19:17 09/09/22 19:17 Labs: Lab Results 09/09/22 09/09/22 09/09/22 Range/Units 19:12 19:17 19:17 WBC 7.1 (4.8-10.8) X10*3/uL RBC 5.08 D (4.20-5.50) X10*6/uL Hgb 16.6 H D (12.0-16.0) g/dl Hct 47.8 H (37.0-47.0) % MCV 94.1 (80.0-98.0) fL MCH 32.7 (27.0-33.0) pg MCHC 34.7 (31.0-35.0) g/dl RDW 12.0 (11.0-16.0) % Plt Count 177 (160-400) X10*3/uL MPV 8.8 L (9.4-12.3) fL Immature Gran % (Auto) 0.3 (0.0-0.4) % Neut % (Auto) 76.3 H (45-73) % Lymph % (Auto) 11.7 L (20-40) % [place] % (Auto) 11.0 (2-11) % Eos % (Auto) 0.3 (0-4) % Baso % (Auto) 0.4 (0-2) % Lymph # (Auto) 0.8 L (1.2-4.9) X10*3/uL [place] # (Auto) 0.8 (0.1-1.2) X10*3/uL Eos # (Auto) 0.0 (0.0-0.4) X10*3/uL Baso # (Auto) 0.0 (0.0-0.2) X10*3/uL Abs Immat Gran (auto) 0.02 (0.00-0.03) X10*3/uL Absolute Neuts (auto) 5.4 (2.0-8.3) x10*3/uL Absolute Nucleated RBC 0.000 (0.0-0.012) X10*3/uL Nucleated RBC % (auto) 0.0 (0.0-0.2) /100WBC PT 15.3 H (10.0-13.1) SEC INR 1.3 H (0.9-1.1) APTT 32.1 (26.0-36.4) SEC Sodium (135-145) mmol/L Potassium (3.3-5.1) mmol/L Chloride (96-108) mmol/L Carbon Dioxide (22-29) mmol/L Anion Gap (12-20) BUN (9-16) mg/dL Creatinine (0.5-1.4) mg/dL Estim Creat Clear Calc Estimated GFR Random Glucose (60-115) mg/dL Calcium (8.4-10.2) mg/dL Total Bilirubin (0.0-1.0) mg/dL AST (5-31) U/L ALT (0-31) U/L Alkaline Phosphatase (39-117) U/L Troponin I High Sens (<3.5-17.0) ng/L B-Natriuretic Peptide (<100) pg/mL Total Protein (6.5-8.0) g/dL Albumin (3.5-5.0) g/dL Influenza Type A (PCR) NEGATIVE (Negative) Influenza Type B (PCR) NEGATIVE (Negative) RSV RNA Qual (PCR) NEGATIVE (Negative) SARS-CoV-2 RNA (RT-PCR) NEGATIVE (Negative) 09/09/22 09/09/22 09/09/22 Range/Units 19:17 19:17 19:17 WBC (4.8-10.8) X10*3/uL RBC (4.20-5.50) X10*6/uL Hgb (12.0-16.0) g/dl Hct (37.0-47.0) % MCV (80.0-98.0) fL MCH (27.0-33.0) pg MCHC (31.0-35.0) g/dl RDW (11.0-16.0) % Plt Count (160-400) X10*3/uL MPV (9.4-12.3) fL Immature Gran % (Auto) (0.0-0.4) % Neut % (Auto) (45-73) % Lymph % (Auto) (20-40) % [place] % (Auto) (2-11) % Eos % (Auto) (0-4) % Baso % (Auto) (0-2) % Lymph # (Auto) (1.2-4.9) X10*3/uL [place] # (Auto) (0.1-1.2) X10*3/uL Eos # (Auto) (0.0-0.4) X10*3/uL Baso # (Auto) (0.0-0.2) X10*3/uL Abs Immat Gran (auto) (0.00-0.03) X10*3/uL Absolute Neuts (auto) (2.0-8.3) x10*3/uL Absolute Nucleated RBC (0.0-0.012) X10*3/uL Nucleated RBC % (auto) (0.0-0.2) /100WBC PT (10.0-13.1) SEC INR (0.9-1.1) APTT (26.0-36.4) SEC Sodium 141 (135-145) mmol/L Potassium 3.9 (3.3-5.1) mmol/L Chloride 104 (96-108) mmol/L Carbon Dioxide 20 L (22-29) mmol/L Anion Gap 21 H (12-20) BUN 20 H (9-16) mg/dL Creatinine 1.04 (0.5-1.4) mg/dL Estim Creat Clear Calc 47.7 Estimated GFR 51 Random Glucose 138 H (60-115) mg/dL Calcium 9.3 D (8.4-10.2) mg/dL Total Bilirubin 1.9 H (0.0-1.0) mg/dL AST 42 H (5-31) U/L ALT 39 H (0-31) U/L Alkaline Phosphatase 84 (39-117) U/L Troponin I High Sens 79.1 H* D (<3.5-17.0) ng/L B-Natriuretic Peptide 164 H (<100) pg/mL Total Protein 7.3 (6.5-8.0) g/dL Albumin 4.5 (3.5-5.0) g/dL Influenza Type A (PCR) (Negative) Influenza Type B (PCR) (Negative) RSV RNA Qual (PCR) (Negative) SARS-CoV-2 RNA (RT-PCR) (Negative) 09/09/22 Range/Units 23:26 WBC (4.8-10.8) X10*3/uL RBC (4.20-5.50) X10*6/uL Hgb (12.0-16.0) g/dl Hct (37.0-47.0) % MCV (80.0-98.0) fL MCH (27.0-33.0) pg MCHC (31.0-35.0) g/dl RDW (11.0-16.0) % Plt Count (160-400) X10*3/uL MPV (9.4-12.3) fL Immature Gran % (Auto) (0.0-0.4) % Neut % (Auto) (45-73) % Lymph % (Auto) (20-40) % [place] % (Auto) (2-11) % Eos % (Auto) (0-4) % Baso % (Auto) (0-2) % Lymph # (Auto) (1.2-4.9) X10*3/uL [place] # (Auto) (0.1-1.2) X10*3/uL Eos # (Auto) (0.0-0.4) X10*3/uL Baso # (Auto) (0.0-0.2) X10*3/uL Abs Immat Gran (auto) (0.00-0.03) X10*3/uL Absolute Neuts (auto) (2.0-8.3) x10*3/uL Absolute Nucleated RBC (0.0-0.012) X10*3/uL Nucleated RBC % (auto) (0.0-0.2) /100WBC PT (10.0-13.1) SEC INR (0.9-1.1) APTT (26.0-36.4) SEC Sodium (135-145) mmol/L Potassium (3.3-5.1) mmol/L Chloride (96-108) mmol/L Carbon Dioxide (22-29) mmol/L Anion Gap (12-20) BUN (9-16) mg/dL Creatinine (0.5-1.4) mg/dL Estim Creat Clear Calc Estimated GFR Random Glucose (60-115) mg/dL Calcium (8.4-10.2) mg/dL Total Bilirubin (0.0-1.0) mg/dL AST (5-31) U/L ALT (0-31) U/L Alkaline Phosphatase (39-117) U/L Troponin I High Sens 187.7 H* D (<3.5-17.0) ng/L B-Natriuretic Peptide (<100) pg/mL Total Protein (6.5-8.0) g/dL Albumin (3.5-5.0) g/dL Influenza Type A (PCR) (Negative) Influenza Type B (PCR) (Negative) RSV RNA Qual (PCR) (Negative) SARS-CoV-2 RNA (RT-PCR) (Negative) Independent Interpretation I performed an independent interpretation of an: EKG Interpretation: First EKG showed a sinus pattern heart rate was 70 TN QRS QT within normal limits there is no acute ST segment elevation. Repeat EKG showed an atrial fibrillation pattern heart rate is 130 TN QRS QT within normal limits no significant ST segment depression likely secondary to rate Radiology Impression Discussion of test interpretation with radiology: I have reviewed the radiologist's reading. External Record Review External record reviewed: Inpatient record Critical Care Time Critical Care Time Critical Care Time: Yes Total Critical Care Time: 40 Attestation: I have personally provided 40 minutes of critical care time exclusive of time spent on separately billable procedures. Time includes review of lab data, radiology results, discussion with consultants, and monitoring for potential decompensation. Interventions were performed as documented above Discharge Plan Discharge Clinical Impression: Atrial fibrillation Patient Disposition: Admitted As Inpatient Prescriptions: No Action ipratropium-albuterol 0.5 mg-3 mg(2.5 mg base)/3 mL solution for nebulization 3 ml inhalation Q4-6H PRN (Reason: wheezing) 30 Days Qty: 180 6RF Xarelto 20 mg tablet 20 mg PO DAILY@1730 Qty: 90 3RF atorvastatin 40 mg tablet 40 mg PO DAILY 90 Days Qty: 90 3RF Jardiance 10 mg tablet 10 mg PO DAILY Qty: 30 2RF carvedilol 25 mg tablet 25 mg PO BID Qty: 60 5RF diltiazem HCl [Cardizem CD] 120 mg capsule,extended release 24hr 120 mg PO DAILY Qty: 30 1RF Protocol: Hold for SBP/HR < HOLD for SBP < : 90 HOLD for HR < : 60 Rx Instructions: Keep appt w Dr. Brennan on 09/18/22 @ 245pm flecainide 50 mg tablet 50 mg PO BID Qty: 60 1RF Rx Instructions: Keep appt w Dr. Brennan on 09/18/22 @ 245pm ketorolac 0.5 % Drops 1 drp OPHTHALMIC (EYE) BID coenzyme Q10 100 mg Tablet 100 mg PO DAILY Rx Instructions: patient unsure of her dose multivitamin Tablet 1 tab PO DAILY magnesium 250 mg Tablet 250 mg PO DAILY Rx Instructions: patient not sure of her dose ascorbic acid (vitamin C) 250 mg Tablet 250 mg PO DAILY cholecalciferol (vitamin D3) [Vitamin D3] 10 mcg (400 unit) Capsule 10 mcg PO DAILY Rx Instructions: patient not sure of her dose furosemide 20 mg tablet 40 mg PO QAM vitamin E (dl, acetate) 180 mg (400 unit) Capsule 180 mg PO DAILY montelukast 10 mg tablet 10 mg PO BEDTIME gabapentin 300 mg capsule 600 mg PO BEDTIME omeprazole 20 mg capsule,delayed release(DR/EC) 40 mg PO BEDTIME losartan 100 mg tablet 100 mg PO DAILY fexofenadine [Shea Allergy] 180 mg tablet 180 mg PO DAILY meloxicam 15 mg tablet 15 mg PO DAILY turmeric 400 mg capsule 400 mg PO DAILY
[2022-09-09 20:09] LABS: Troponin-I High Sensitivity 79.1 ng/L (<3.5-17.0)
[2022-09-09] MEDS: 0.9 % Sodium Chloride 1,000 ML 999 ML IV (20:22)
[2022-09-09 20:35] VITALS: BP 148/80; PULSE 80; RESP 20; O2SAT 88
[2022-09-09 20:41] VITALS: PULSE 79; RESP 14; O2SAT 94
--- NOTE | 2022-09-09 20:42 | PC.NURSE ---
on RA patient O2Sat at 88%; patient placed on 2L O2 NC, increased O2Sat to 94%
[2022-09-09] MEDS: iohexoL 350 MG/ML 100 ML INFUS..BTL IV (21:22)
--- NOTE | 2022-09-09 22:15 | ECG_ITS ---
Test Reason : A FIB Blood Pressure : / mmHG Vent. Rate : 130 BPM Atrial Rate : 000 BPM P-R Int : 000 ms QRS Dur : 088 ms QT Int : 346 ms P-R-T Axes : 000 046 -54 degrees QTc Int : 509 ms Atrial fibrillation with rapid ventricular response Marked ST abnormality, possible inferior subendocardial injury Marked ST abnormality, possible anterior subendocardial injury Abnormal ECG When compared with ECG of 09-SEP-2022 17:50, Atrial fibrillation has replaced Sinus rhythm Nonspecific T wave abnormality now evident in Inferior leads T wave inversion no longer evident in Lateral leads Referred By: Isela Baker Electronically Signed By:Rickie Allison
[2022-09-09] MEDS: Metoprolol Tartrate 5 MG/5 ML VIAL IVPUSH ×2 (22:57→23:43)
[2022-09-09 23:06] VITALS: BP 156/118; PULSE 123; RESP 21; TEMP 36.6; O2SAT 94
--- NOTE | 2022-09-09 23:37 | P.HPHOSP_ITS ---
History of Present Illness Date of Service: 09/09/22 Chief Complaint: Palpitations This is a 77-year-old female with pertinent history of congestive heart failure with preserved ejection fraction, paroxysmal atrial fibrillation on Xarelto, essential hypertension, pulmonary hypertension who presents to the emergency department for evaluation of palpitations. Patient states that she was feeling sick since Thursday. Patient ate chili and had been throwing up since. Multiple episodes of nonbloody emesis over the weekend. Admits decreased p.o. intake. Prior to ER visit, patient started episodes of palpitation. States she is compliant with her medications and anticoagulation. Patient has had multiple ablations in the past. She denies fever, chills, chest discomfort, shortness of breath, abdominal pain, changes in urinary or bowel habits. In the emergency department, patient required multiple doses of IV SA estiven blocking agents to control heart rate. Troponin was found to be elevated Review of Systems Constitutional: Constitutional: Reports lethargy and Reports malaise Cardiovascular: Cardiovascular: Reports rapid heart rate Respiratory: Respiratory: Reports no additional respiratory complaints Gastrointestinal: Gastrointestinal: Reports nausea and Reports vomiting Genitourinary: Genitourinary: Reports no additional female genitourinary complaints [facility] Medical History Atrial fibrillation with RVR Cardiomyopathy Chronic heart failure with preserved ejection fraction (HFpEF) Diastolic dysfunction History of cardiomyopathy History of cardioversion HTN (hypertension) Paroxysmal atrial fibrillation Paroxysmal atrial fibrillation Pulmonary hypertension Pulmonary hypertension Family History Father Cancer Mother Stroke Brother Atrial fibrillation Sister Cardiovascular disease Atrial fibrillation Surgical History History of back surgery Hx of cardiac cath Hx of hand surgery Hx of total hip arthroplasty S/P cardiac catheterization Social History Household Members: None Housing: House Do you presently have visiting nurse or other home services: No Alcohol intake: never Patient Tobacco Use Status: Never used Tobacco Smoked in Last 30 Days: No Use of substances other than those prescribed or required for medical reasons: No Advance Directives: No Advance Directives Information Provided: No service: No Current occupational status: retired Meds Allergies Allergy/AdvReac Type Severity Reaction Status Date / Time aspirin [ASPIRIN] Allergy Unknown RASH Verified 02/05/22 15:11 Sulfa (Sulfonamide Allergy Unknown RASH Verified 02/05/22 15:11 Antibiotics) [SULFA (SULFONAMIDE ANTIBIOTICS)] adhesives AdvReac Unknown Uncoded 07/29/22 16:09 Home Medications Medication Instructions Recorded Confirmed Last Taken Type gabapentin 300 mg capsule 600 mg PO BEDTIME 05/16/20 07/28/22 07/27/22 History montelukast 10 mg tablet 10 mg PO BEDTIME 05/16/20 07/28/22 07/27/22 History fexofenadine 180 mg tablet 180 mg PO DAILY 06/21/21 07/28/22 07/28/22 History (Shea Allergy) ascorbic acid (vitamin C) 250 mg 250 mg PO DAILY 07/28/21 07/28/22 07/28/22 History tablet cholecalciferol (vitamin D3) 10 10 mcg PO DAILY 07/28/21 07/28/22 07/28/22 History mcg (400 unit) capsule (Vitamin D3) coenzyme Q10 100 mg tablet 100 mg PO DAILY 07/28/21 07/28/22 07/28/22 History ketorolac 0.5 % eye drops 1 drp ophthalmic (eye) BID 07/28/21 07/28/22 07/28/22 History magnesium 250 mg tablet 250 mg PO DAILY 07/28/21 07/28/22 07/28/22 History multivitamin 1 tab PO DAILY 07/28/21 07/28/22 07/28/22 History furosemide 20 mg tablet 40 mg PO QAM 12/17/21 07/28/22 07/28/22 History omeprazole 20 mg capsule,delayed 40 mg PO BEDTIME 12/17/21 07/28/22 07/27/22 History release losartan 100 mg tablet 100 mg PO DAILY 02/04/22 07/28/22 07/28/22 History meloxicam 15 mg tablet 15 mg PO DAILY 05/06/22 07/28/22 07/28/22 History turmeric 400 mg capsule 400 mg PO DAILY 05/06/22 07/28/22 07/28/22 History vitamin E (dl, acetate) 180 mg 180 mg PO DAILY 07/28/22 07/28/22 07/28/22 History (400 unit) capsule Physical Exam Vital Signs and Narrative: Vital Signs: Last Vital Signs Temp 97.9 F 09/09/22 23:06 Pulse 123 H 09/09/22 23:06 Resp 21 H 09/09/22 23:06 BP 156/118 H 09/09/22 23:06 Pulse Ox 94 09/09/22 23:06 O2 Del Method 09/09/22 23:06 O2 Flow Rate 2 09/09/22 20:41 BMI result Body Mass Index 30.7 Middle-aged female lying in bed in no distress Neck supple, no JVD Irregularly irregular, S1-S2 heard Regular breath sounds bilaterally, no wheezing or crackles appreciated Abdomen soft nontender, no guarding, no rigidity Patient is awake, alert and oriented to self, place, time and person ; no focal motor deficit Psych: Normal mood No pedal edema Results Labs 09/09/22 19:17 09/09/22 19:17 Labs: Laboratory Results - last 24 hr 09/09/22 09/09/22 09/09/22 19:12 19:17 19:17 MCV 94.1 MCH 32.7 MCHC 34.7 RDW 12.0 Plt Count 177 MPV 8.8 L Immature Gran % (Auto) 0.3 Neut % (Auto) 76.3 H Lymph % (Auto) 11.7 L [place] % (Auto) 11.0 Eos % (Auto) 0.3 Baso % (Auto) 0.4 Lymph # (Auto) 0.8 L [place] # (Auto) 0.8 Eos # (Auto) 0.0 Baso # (Auto) 0.0 Abs Immat Gran (auto) 0.02 Absolute Neuts (auto) 5.4 Absolute Nucleated RBC 0.000 Nucleated RBC % (auto) 0.0 PT 15.3 H INR 1.3 H APTT 32.1 Anion Gap Estim Creat Clear Calc Estimated GFR Random Glucose Calcium Total Bilirubin AST ALT Alkaline Phosphatase Troponin I High Sens B-Natriuretic Peptide Total Protein Albumin Influenza Type A (PCR) NEGATIVE Influenza Type B (PCR) NEGATIVE RSV RNA Qual (PCR) NEGATIVE SARS-CoV-2 RNA (RT-PCR) NEGATIVE 09/09/22 09/09/22 09/09/22 19:17 19:17 19:17 MCV MCH MCHC RDW Plt Count MPV Immature Gran % (Auto) Neut % (Auto) Lymph % (Auto) [place] % (Auto) Eos % (Auto) Baso % (Auto) Lymph # (Auto) [place] # (Auto) Eos # (Auto) Baso # (Auto) Abs Immat Gran (auto) Absolute Neuts (auto) Absolute Nucleated RBC Nucleated RBC % (auto) PT INR APTT Anion Gap 21 H Estim Creat Clear Calc 47.7 Estimated GFR 51 Random Glucose 138 H Calcium 9.3 D Total Bilirubin 1.9 H AST 42 H ALT 39 H Alkaline Phosphatase 84 Troponin I High Sens 79.1 H* D B-Natriuretic Peptide 164 H Total Protein 7.3 Albumin 4.5 Influenza Type A (PCR) Influenza Type B (PCR) RSV RNA Qual (PCR) SARS-CoV-2 RNA (RT-PCR) Imaging Radiologist's Impressions: Impressions Chest X-Ray 09/09/22 18:57 IMPRESSION: Unremarkable examination. Abdomen/Pelvis CT 09/09/22 21:30 IMPRESSION: No acute abnormality CT scan abdomen pelvis. Fleischner guidelines were followed. Assessment and Plan (1) Atrial fibrillation with RVR: Status: Acute (2) NSTEMI (non-ST elevated myocardial infarction): Status: Acute Plan This is a 77-year-old female with pertinent history of congestive heart failure with preserved ejection fraction, paroxysmal atrial fibrillation on Xarelto, essential hypertension, pulmonary hypertension who presents to the emergency department for evaluation of palpitations. #. AFib with RVR -received IV lopressor and diltiazem in the ER. Low threshold to initiate diltiazem drip. Will resume po coreg. Obtain TSH and Consulting cardiology. #. NSTEMI: Initiated Lovenox 1 mg per kg b.i.d.. Obtaining echo and consulted Cardiology #. Relative polycythemia likely in the setting of dehydration in the setting of GI losses #. Congestive heart failure with preserved ejection fraction: Currently compensated. #. Essential hypertension: Resume home p.o. antihypertensives #. Moderate persistent asthma: Continue home inhalers #. Mixed hyperlipidemia: On statin DVT prophylaxis: Therapeutic Lovenox Full code Cardiac diet Admit as inpatient and will require two night minimum hospital stay for symptomatic AFib with RVR and NSTEMI. Time Spent With Patient Time: Total time managing care of this patient today ____ minutes. Quality Stroke Does the patient have a stroke diagnosis?: No VTE Prior VTE?: No VTE Risk Level:: Medical - moderate - high VTE Device Contraindication: Treatment Not Indicated VTE Drug Contraindication: N/A - Med Ordered
[2022-09-09 23:40] VITALS: BP 162/91; PULSE 122; RESP 18; O2SAT 94
[2022-09-09 23:42] VITALS: PULSE 118
[2022-09-10 00:01] LABS: Troponin-I High Sensitivity 187.7 ng/L (<3.5-17.0)
[2022-09-10] MEDS: carvediloL 25 MG TABLET PO ×3 (00:51→19:56)
[2022-09-10] MEDS: Enoxaparin Sodium 80 MG/0.8 ML SYRINGE SUBCUT ×3 (00:51→19:58)
[2022-09-10] MEDS: dilTIAZem HCL 50 MG/10 ML VIAL 20 MG IVPUSH (00:52)
[2022-09-10 00:57] VITALS: BP 139/94; PULSE 119; RESP 19; TEMP 36.6; O2SAT 94
[2022-09-10 01:58] LABS: Thyroid Stimulating Hormone 2.61 uIU/mL (0.32-4.0)
[2022-09-10 04:26] VITALS: BMI 30.1
[2022-09-10 06:23] LABS: MANUAL DIFF FLAG NO
[2022-09-10 06:30] LABS: Basophils Percent Auto 0.5 % (0-2); Eosinophils Percent Auto 0.3 % (0-4); Hematocrit 43.6 % (37.0-47.0); Hemoglobin 14.7 g/dl (12.0-16.0); Imm Gran Abs Auto 0.02 X10*3/uL (0.00-0.03); Imm Gran Pct Auto 0.3 % (0.0-0.4); Lymphocytes Absolute Auto 1.1 X10*3/uL (1.2-4.9); Mean Corpuscular HGB Conc 33.7 g/dl (31.0-35.0); Mean Platelet Volume 8.8 fL (9.4-12.3); Monocytes Absolute Auto 0.8 X10*3/uL (0.1-1.2); Monocytes Percent Auto 13.7 % (2-11); Neutrophils Absolute Auto 4.1 x10*3/uL (2.0-8.3); Neutrophils Percent Auto 67.2 % (45-73); Platelet Count 144 X10*3/uL (160-400); Red Blood Count 4.59 X10*6/uL (4.20-5.50); Red Cell Distribution Width 12.1 % (11.0-16.0); White Blood Count 6.1 X10*3/uL (4.8-10.8)
--- NOTE | 2022-09-10 07:00 | CA_ITS ---
Transthoracic Echocardiogram Patient (Last, First, Middle): Chiquita Meeks P Gender: Female Date of : 1945 Age: 77 Procedure Date: 09/10/2022 Procedure Type: Transthoracic Echocardiogram Location: [facility] [place] Height: 165.1 cm Weight: 81.65 kg BSA: 1.89 m2 Heart Rate: bpm BP: 141 / 78 mmHg Administrative Medical Director: Referring MD: Alee Coles MD Symptoms: NSTEMI Study Quality: Fair Conclusions: - Normal left ventricular size and systolic function. The visually estimated ejection fraction is between 60-65%. - LV wall thickness is moderate to severely increased. - Normal right ventricular cavity size. There is borderline right ventricular systolic function. - The left atrium is severely dilated. - There is mild tricuspid valve regurgitation. The right ventricular systolic pressure is 41 mmHg. Normal right atrial pressure. Mild pulmonary hypertension is present. Findings Left Ventricle Normal left ventricular size and systolic function. The visually estimated ejection fraction is between 60-65%. There is no evidence of regional wall motion abnormalities. Diastolic function is indeterminate on the basis of available data. LV wall thickness is moderate to severely increased. Right Ventricle Normal right ventricular cavity size. There is borderline right ventricular systolic function. Atria The left atrium is severely dilated. The right atrium is normal in size. Aortic Valve Normal aortic valve structure and function. There is no aortic valve stenosis. There is no aortic valve regurgitation. Mitral Valve Normal mitral valve structure and function. There is mild mitral annular calcification. There is no mitral valve regurgitation. There is no mitral valve stenosis. Pulmonic Valve The pulmonic valve is likely normal. Tricuspid Valve Normal tricuspid valve structure. There is mild tricuspid valve regurgitation. The right ventricular systolic pressure is 41 mmHg. Normal right atrial pressure. Mild pulmonary hypertension is present. Great Vessels All visible segments of the aorta are normal in size. The visualized portions of the pulmonary artery and branches are normal. Venous The inferior vena cava is normal in size and collapses greater than 50% with inspiration. Pericardium/Pleural There is no evidence of pericardial effusion. Prior Study Comparison Changes noted compared to prior study dated: 08/23/2021. Borderline RCV function, severe LA dilation, Mod to severely increased LV wall thickness. Measurements 2D Linear Measurements IVSd: 1.44 0.6-0.9/0.6-1.0 cm LVIDd: 3.65 3.9-5.3/4.2-5.9 cm LVIDd Index: 1.93 2.4-3.2/2.2-3.1 cm/m2 LVIDs: 2.61 2.0-3.6 cm LVPWd: 1.46 0.7-1.1 cm Ao Root: 3.40 2.1-3.5 cm LA Diam: 3.70 2.7-3.8/3.0-4.0 cm LAIDs Index: 1.96 1.5-2.3 cm/m2 LV Mass: 241.68 67-162/88-224 g LV Mass Index: 127.87 43-95/49-115 g/m2 LVOT Diam: 2.20 3.0+(-)1.3 cm Mitral Valve MV Pk E: 0.79 MV Decel Time: 132.00 E'Lateral: 7.72 E'Medial: 6.96 E/E' Med: 11.40 E/E' Lat: 10.20 PHT: 39.00 MVA PHT: 5.64 Decel [place]: 5.97 Aortic Valve AoV Pk Toney: 1.42 AoV Mn Toney: 0.92 AoV VTI: 0.20 AoV Pk Grad: 8.00 Aov Mn Grad: 4.00 BRENDAN Cont.VTI: 2.19 LVOT LVOT Pk Toney: 0.84 LVOT Mn Toney: 0.56 LVOT VTI: 0.11 LVOT Pk Grad: 3.00 LVOT Mn Grad: 2.00 LVOT Diam: 2.20 LVOT Area: 3.80 Diastolic Function MV Pk E: 0.79 E'Medial: 6.96 E/E' Med: 11.40 E' Laterial: 7.72 E/E' Lat: 10.20 Right Ventricle TAPSE (mm): 19.50 TVS' Toney: 8.81 Tricuspid Valve TR Pk Toney: 3.16 TR Pk Grad: 40.00 RA Press: 3.00 RVSP: 41.00 Great Vessels Aorta Ao Root-2D: 3.40 2.0-3.7 cm Ao Asc: 2.80 2.1-3.4 cm Pulmonary Valve PV Pk Toney: 0.79 Peak PV Grad: 2.00 Updated in Other Vendor System with Status of Final Rickie Allison MD electronically signed on 09/10/2022 4:08:33 PM with status of Final
[2022-09-10 07:05] LABS: Anion Gap 18 (12-20); Blood Urea Nitrogen 20 mg/dL (9-16); Calcium 8.4 mg/dL (8.4-10.2); Carbon Dioxide 18 mmol/L (22-29); Chloride 109 mmol/L (96-108); Creatinine Clr Calc Pharmacy 65.4; Estimated Glomerular Filt Rate > 60; Glucose Random 83 mg/dL (60-115); Potassium 3.2 mmol/L (3.3-5.1); Sodium 142 mmol/L (135-145)
[2022-09-10 07:17] VITALS: BP 141/78; PULSE 108; RESP 20; TEMP 35.9; O2SAT 95
[2022-09-10] MEDS: Potassium Chloride Packet 20 MEQ PACKET 40 MEQ PO (08:25)
[2022-09-10] MEDS: 0.9 % Sodium Chloride Flush 3 ML SYRINGE IVFLUSH ×2 (08:25→14:37)
--- NOTE | 2022-09-10 08:37 | PHA.MEDREC ---
Pharmacy Consult ? Medication Reconciliation Pharmacy has completed the medication reconciliation. Pt with list at bedside, said she hasn't been able to keep anything down since Thursday but did attempt to take losartan and carvedilol Thursday morning as well as her Xarelto Thursday evening.
[2022-09-10 08:52] LABS: Troponin-I High Sensitivity 343.4 ng/L (<3.5-17.0)
--- NOTE | 2022-09-10 10:27 | MHC.CM.PN ---
pt lives alone had no servceis prior to admisison and does not anticapate needing serveis when dcd pt has own ride hime dc plan home no services
--- NOTE | 2022-09-10 11:11 | HO.PM.IMPN ---
Subjective Subjective Date of Service: 09/10/22 Interval History: Seen in follow-up for AFib with RVR, NSTEMI Interval history: Has been experiencing intermittent palpitations is currently asymptomatic. Denies any chest pain. Has chronic shortness of breath that has not worsened in quality or severity. Resting comfortably in bed. Review of Systems Review of Systems: Yes all other systems are reviewed and are negative Physical Exam Vital Signs: Vital Signs: Last Vital Signs Temp 96.7 F L 09/10/22 07:17 Pulse 108 H 09/10/22 07:17 Resp 20 09/10/22 07:17 BP 141/78 H 09/10/22 07:17 Pulse Ox 95 09/10/22 07:17 O2 Del Method 09/10/22 07:17 O2 Flow Rate 2 09/09/22 20:41 BMI result Body Mass Index 30.1 Constitutional - Awake and Alert, No apparent distress Eyes - PERRLA, EOMI Cardiovascular - S1S2, tachycardic, irregular rhythm, No edema Respiratory - Normal lung expansion, Normal respiratory effort, No respiratory distress, CTA bilaterally Gastrointestinal - NT / ND; +BS; No rebound or guarding Extremities - no calf tenderness bilaterally, no swelling Skin - Warm/Dry Neurological - Alert & oriented x3 Psychological - Appropriate affect Objective Data Active Medications Acetaminophen (Acetaminophen 325 Mg Tablet) 650 mg PO Q6H PRN PRN Reason: Pain, Mild (Pain Scale 1-3) Albuterol/Ipratropium (Albuterol/Iprat 2.5/0.5mg 3 Ml Ampul.Neb) 3 ml INHALE RQ4H PRN PRN Reason: Wheezing Carvedilol (Carvedilol 25 Mg Tablet) 25 mg PO BID [facility]; Protocol Last Admin: 09/10/22 08:25 Dose: 25 mg Documented By: KASI Enoxaparin Sodium (Enoxaparin Sodium 80 Mg/0.8 Ml Syringe) 80 mg 1 mg/kg (80 mg) SUBCUT BID [facility] Last Admin: 09/10/22 08:25 Dose: 80 mg Documented By: KASI Melatonin (Melatonin 3 Mg Tablet) 6 mg PO BEDTIME PRN PRN Reason: Insomnia Ondansetron HCl (Ondansetron Hcl 4 Mg/2 Ml Vial) 4 mg IVPUSH Q8H PRN PRN Reason: Nausea and Vomiting Pharmacy Consult (Consult Rx Perform Med Rec) 1 each MISCELLANE ONCE PRN PRN Reason: Consult order Sodium Chloride (0.9 % Sodium Chloride Flush 3 Ml Syringe) [facility] Last Admin: 09/10/22 08:25 Dose: 3 ml Documented By: KASI Labs 09/10/22 06:10 09/10/22 06:10 Labs: Laboratory Results - last 24 hr 09/09/22 09/09/22 09/09/22 19:12 19:17 19:17 MCV 94.1 MCH 32.7 MCHC 34.7 RDW 12.0 Plt Count 177 MPV 8.8 L Immature Gran % (Auto) 0.3 Neut % (Auto) 76.3 H Lymph % (Auto) 11.7 L [place] % (Auto) 11.0 Eos % (Auto) 0.3 Baso % (Auto) 0.4 Lymph # (Auto) 0.8 L [place] # (Auto) 0.8 Eos # (Auto) 0.0 Baso # (Auto) 0.0 Abs Immat Gran (auto) 0.02 Absolute Neuts (auto) 5.4 Absolute Nucleated RBC 0.000 Nucleated RBC % (auto) 0.0 PT 15.3 H INR 1.3 H APTT 32.1 Anion Gap Estim Creat Clear Calc Estimated GFR Random Glucose Calcium Total Bilirubin AST ALT Alkaline Phosphatase Troponin I High Sens B-Natriuretic Peptide Total Protein Albumin TSH Influenza Type A (PCR) NEGATIVE Influenza Type B (PCR) NEGATIVE RSV RNA Qual (PCR) NEGATIVE SARS-CoV-2 RNA (RT-PCR) NEGATIVE 09/09/22 09/09/22 09/09/22 19:17 19:17 19:17 MCV MCH MCHC RDW Plt Count MPV Immature Gran % (Auto) Neut % (Auto) Lymph % (Auto) [place] % (Auto) Eos % (Auto) Baso % (Auto) Lymph # (Auto) [place] # (Auto) Eos # (Auto) Baso # (Auto) Abs Immat Gran (auto) Absolute Neuts (auto) Absolute Nucleated RBC Nucleated RBC % (auto) PT INR APTT Anion Gap 21 H Estim Creat Clear Calc 47.7 Estimated GFR 51 Random Glucose 138 H Calcium 9.3 D Total Bilirubin 1.9 H AST 42 H ALT 39 H Alkaline Phosphatase 84 Troponin I High Sens 79.1 H* D B-Natriuretic Peptide 164 H Total Protein 7.3 Albumin 4.5 TSH 2.61 Influenza Type A (PCR) Influenza Type B (PCR) RSV RNA Qual (PCR) SARS-CoV-2 RNA (RT-PCR) 09/09/22 09/10/22 09/10/22 23:26 06:10 06:10 MCV 95.0 MCH 32.0 MCHC 33.7 RDW 12.1 Plt Count 144 L MPV 8.8 L Immature Gran % (Auto) 0.3 Neut % (Auto) 67.2 Lymph % (Auto) 18.0 L [place] % (Auto) 13.7 H Eos % (Auto) 0.3 Baso % (Auto) 0.5 Lymph # (Auto) 1.1 L [place] # (Auto) 0.8 Eos # (Auto) 0.0 Baso # (Auto) 0.0 Abs Immat Gran (auto) 0.02 Absolute Neuts (auto) 4.1 Absolute Nucleated RBC 0.000 Nucleated RBC % (auto) 0.0 PT INR APTT Anion Gap 18 Estim Creat Clear Calc 65.4 Estimated GFR > 60 Random Glucose 83 Calcium 8.4 D Total Bilirubin AST ALT Alkaline Phosphatase Troponin I High Sens 187.7 H* D B-Natriuretic Peptide Total Protein Albumin TSH Influenza Type A (PCR) Influenza Type B (PCR) RSV RNA Qual (PCR) SARS-CoV-2 RNA (RT-PCR) 09/10/22 07:53 MCV MCH MCHC RDW Plt Count MPV Immature Gran % (Auto) Neut % (Auto) Lymph % (Auto) [place] % (Auto) Eos % (Auto) Baso % (Auto) Lymph # (Auto) [place] # (Auto) Eos # (Auto) Baso # (Auto) Abs Immat Gran (auto) Absolute Neuts (auto) Absolute Nucleated RBC Nucleated RBC % (auto) PT INR APTT Anion Gap Estim Creat Clear Calc Estimated GFR Random Glucose Calcium Total Bilirubin AST ALT Alkaline Phosphatase Troponin I High Sens 343.4 H* D B-Natriuretic Peptide Total Protein Albumin TSH Influenza Type A (PCR) Influenza Type B (PCR) RSV RNA Qual (PCR) SARS-CoV-2 RNA (RT-PCR) Assessment and Plan (1) Atrial fibrillation with RVR: Status: Acute (2) NSTEMI (non-ST elevated myocardial infarction): Status: Acute Plan This is a 77-year-old female with pertinent history of congestive heart failure with preserved ejection fraction, paroxysmal atrial fibrillation on Xarelto, essential hypertension, pulmonary hypertension admitted for AFib with RVR and NSTEMI. # AFib with RVR -On therapeutic Lovenox -continue carvedilol for rate control as well as flecainide. Hold diltiazem in setting of NSTEMI -cardiology consult pending -TSH normal -echo pending # NSTEMI -Trop 79 -> 187.7 -> 343.3. Repeat trop until peaked -Repeat EKG ordered -continue therapeutic Lovenox 80 mg b.i.d. -Trop continue checking troponin until peak -Continue carvedilol, bb. allergy to asa -echo pending -Appreciate cardiology input #Relative polycythemia likely in the setting of dehydration in the setting of GI losses- resolved # Congestive heart failure with preserved ejection fraction -Currently compensated -continue PO lasix #Essential hypertension -continue home p.o. antihypertensives, except diltiazem as above #Moderate persistent asthma -Continue home inhalers #Mixed hyperlipidemia -On statin DVT prophylaxis:? Therapeutic Lovenox Full code Cardiac diet Pt requires ongoing inpt stay for management of symptomatic AFib with RVR and NSTEMI requiring therapeutic lovenox, close telemetry monitoring, and expert consultation to prevent further cardiopulmonary decompensation.? Time Spent With Patient Time: Total time managing care of this patient today ____ minutes. Quality Stroke Does the patient have a stroke diagnosis?: No VTE Prior VTE?: No VTE Risk Level:: Medical - moderate - high VTE Device Contraindication: Treatment Not Indicated VTE Drug Contraindication: N/A - Med Ordered
[2022-09-10 11:21] VITALS: BP 133/86; PULSE 132; RESP 20; TEMP 36.3; O2SAT 93
--- NOTE | 2022-09-10 11:27 | ECG_ITS ---
Test Reason : elevated troponins Blood Pressure : / mmHG Vent. Rate : 124 BPM Atrial Rate : 000 BPM P-R Int : 000 ms QRS Dur : 088 ms QT Int : 310 ms P-R-T Axes : 000 055 -84 degrees QTc Int : 445 ms Atrial fibrillation with rapid ventricular response ST & T wave abnormality, consider anterior ischemia Abnormal ECG When compared with ECG of 09-SEP-2022 22:16, Nonspecific T wave abnormality, worse in Lateral leads Referred By: Ashanti Foreman Electronically Signed By:Rickie Allison
[2022-09-10] MEDS: Empagliflozin 10 MG TABLET PO (12:01)
[2022-09-10] MEDS: Losartan Potassium 50 MG TABLET 100 MG PO (12:01)
[2022-09-10] MEDS: Atorvastatin Calcium 40 MG TABLET PO (12:01)
[2022-09-10] MEDS: Flecainide Acetate 50 MG TABLET PO (12:01)
[2022-09-10] MEDS: Furosemide 40 MG TABLET PO (12:02)
[2022-09-10 12:55] LABS: Troponin-I High Sensitivity 427.6 ng/L (<3.5-17.0)
[2022-09-10] MEDS: Flecainide Acetate 50 MG TABLET 200 MG PO (14:36)
--- NOTE | 2022-09-10 14:51 | P.CONCA_ITS ---
History of Present Illness History of Present Illness Date of Service: 09/10/22 Requesting physician: Ashanti Foreman Chief complaint: Palpitations Narrative: Pleasant 77-year-old female who has known history of paroxysmal atrial fibrillation presenting with viral gastroenteritis and palpitations. She was noticed to be back in atrial fibrillation with rapid ventricular response. She has palpitations and dyspnea. Clinically not in heart failure currently. She i s saying that she GI symptoms are improving currently. She has not had any vomiting. She has no chest discomfort. She has some dyspnea which happens whenever she develops atrial fibrillation. Her high sensitivity troponin levels are 79, 187, 343 and 427. She was changed to Lovenox mg per kg q.12 on admission, probably because she was unable to tolerate p.o.. She has been taking her medications regularly. No bleeding issues. She had cardioversion last year and was started on flecainide after that. She does not have coronary disease based on angiography from last year. [facility] Past Medical History Medical History Atrial fibrillation with RVR Cardiomyopathy Chronic heart failure with preserved ejection fraction (HFpEF) Diastolic dysfunction History of cardiomyopathy History of cardioversion HTN (hypertension) Paroxysmal atrial fibrillation Paroxysmal atrial fibrillation Pulmonary hypertension Pulmonary hypertension Family History Family History Father Cancer Mother Stroke Brother Atrial fibrillation Sister Cardiovascular disease Atrial fibrillation Surgical History Surgical History History of back surgery Hx of cardiac cath Hx of hand surgery Hx of total hip arthroplasty S/P cardiac catheterization Social History Social History Household Members: None Housing: House Do you presently have visiting nurse or other home services: No Alcohol intake: never Patient Tobacco Use Status: Never used Tobacco Smoked in Last 30 Days: No Use of substances other than those prescribed or required for medical reasons: No Have you been hit, kicked, punched, or otherwise hurt by someone within the past year? If so, by whom?: No Do you feel safe in your current relationship?: No Current Relationship Is there a partner from a previous relationship who is making you feel unsafe now?: No Are you made to feel afraid or neglected: No Advance Directives: No Advance Directives Information Provided: No Do you have thoughts of harming others: None Do you have a plan to hurt others: No Plan Recently lost weight without trying: No Nutrition Risks: No Nutritional Risk Patient : No : No Poor oral hygiene: No service: No Current occupational status: retired Meds Allergies Allergy/AdvReac Type Severity Reaction Status Date / Time aspirin [ASPIRIN] Allergy Unknown RASH Verified 02/05/22 15:11 Sulfa (Sulfonamide Allergy Unknown RASH Verified 02/05/22 15:11 Antibiotics) [SULFA (SULFONAMIDE ANTIBIOTICS)] adhesives AdvReac Unknown Uncoded 07/29/22 16:09 Active Medications: Current Medications Acetaminophen (Acetaminophen 325 Mg Tablet) 650 mg PO Q6H PRN PRN Reason: Pain, Mild (Pain Scale 1-3) Albuterol/Ipratropium (Albuterol/Iprat 2.5/0.5mg 3 Ml Ampul.Neb) 3 ml INHALE RQ4H PRN PRN Reason: Wheezing Albuterol/Ipratropium (Albuterol/Iprat 2.5/0.5mg 3 Ml Ampul.Neb) 3 ml INHALE Q4H PRN PRN Reason: wheezing Ascorbic Acid (Ascorbic Acid 250 Mg Tablet) 250 mg PO DAILY [facility] Atorvastatin Calcium (Atorvastatin Calcium 40 Mg Tablet) 40 mg PO DAILY [facility] Last Admin: 09/10/22 12:01 Dose: 40 mg Carvedilol (Carvedilol 25 Mg Tablet) 25 mg PO BID [facility]; Protocol Last Admin: 09/10/22 08:25 Dose: 25 mg Empagliflozin (Empagliflozin 10 Mg Tablet) 10 mg PO DAILY [facility] Last Admin: 09/10/22 12:01 Dose: 10 mg Enoxaparin Sodium (Enoxaparin Sodium 80 Mg/0.8 Ml Syringe) 80 mg 1 mg/kg (80 mg) SUBCUT BID [facility] Last Admin: 09/10/22 08:25 Dose: 80 mg Furosemide (Furosemide 40 Mg Tablet) 40 mg PO DAILY [facility]; Protocol Last Admin: 09/10/22 12:02 Dose: 40 mg Gabapentin (Gabapentin 300 Mg Capsule) 600 mg PO BEDTIME [facility] Loratadine (Loratadine 10 Mg Tablet) 10 mg PO DAILY [facility] Losartan Potassium (Losartan Potassium 50 Mg Tablet) 100 mg PO DAILY [facility]; Protocol Last Admin: 09/10/22 12:01 Dose: 100 mg Magnesium Oxide (Magnesium Oxide 400 Mg Tablet) 200 mg PO DAILY [facility] Melatonin (Melatonin 3 Mg Tablet) 6 mg PO BEDTIME PRN PRN Reason: Insomnia Montelukast Sodium (Montelukast Sodium 10 Mg Tablet) 10 mg PO BEDTIME [facility] Multivitamins/Vitamin C (Multivitamin Tablet) 1 tab PO DAILY [facility] Naproxen (Naproxen 500 Mg Tablet) 500 mg PO BID [facility] Omeprazole (Omeprazole 40 Mg Capsule.Dr) 40 mg PO BEDTIME [facility] Pharmacy Consult (Consult Rx Perform Med Rec) 1 each MISCELLANE ONCE PRN PRN Reason: Consult order Sodium Chloride (0.9 % Sodium Chloride Flush 3 Ml Syringe) [facility] Last Admin: 09/10/22 14:37 Dose: 3 ml Vitamin D (Cholecalciferol (Vitamin D3) 10 Mcg Tablet) 10 mcg PO DAILY [facility] Vitamin E (Vitamin E (Dl,Tocopheryl Acet) 180 Mg (400 Unit) Capsule) 180 mg PO DAILY [facility] Home Medications Medication Instructions Recorded Confirmed Last Taken Type gabapentin 300 mg capsule 600 mg PO BEDTIME 05/16/20 09/10/22 07/27/22 History montelukast 10 mg tablet 10 mg PO BEDTIME 05/16/20 09/10/22 07/27/22 History fexofenadine 180 mg tablet 180 mg PO DAILY 06/21/21 09/10/22 07/28/22 History (Shea Allergy) ascorbic acid (vitamin C) 250 mg 250 mg PO DAILY 07/28/21 09/10/22 07/28/22 History tablet cholecalciferol (vitamin D3) 10 10 mcg PO DAILY 07/28/21 09/10/22 07/28/22 History mcg (400 unit) capsule (Vitamin D3) coenzyme Q10 100 mg tablet 100 mg PO DAILY 07/28/21 09/10/22 07/28/22 History magnesium 250 mg tablet 250 mg PO DAILY 07/28/21 09/10/22 07/28/22 History multivitamin 1 tab PO DAILY 07/28/21 09/10/22 07/28/22 History furosemide 20 mg tablet 40 mg PO DAILY 12/17/21 09/10/22 07/28/22 History omeprazole 20 mg capsule,delayed 40 mg PO BEDTIME 12/17/21 09/10/22 07/27/22 History release losartan 100 mg tablet 100 mg PO DAILY 02/04/22 09/10/22 09/08/22 09:00 History meloxicam 15 mg tablet 15 mg PO DAILY 05/06/22 09/10/22 07/28/22 History turmeric 400 mg capsule 400 mg PO DAILY 05/06/22 09/10/22 07/28/22 History vitamin E (dl, acetate) 180 mg 180 mg PO DAILY 07/28/22 09/10/22 07/28/22 History (400 unit) capsule rivaroxaban 20 mg tablet (Xarelto) 20 mg PO DAILY@1700 09/10/22 09/10/22 09/08/22 History Physical Exam Vital Signs: Vital Signs: Last Vital Signs Temp 97.3 F 09/10/22 11:21 Pulse 132 H 09/10/22 11:21 Resp 20 09/10/22 11:21 BP 133/86 09/10/22 11:21 Pulse Ox 93 09/10/22 11:21 O2 Del Method 09/10/22 11:21 O2 Flow Rate 2 09/09/22 20:41 BMI result Body Mass Index 30.1 GENERAL APPEARANCE: in no acute distress, pleasant. NECK: no carotid bruit, no jugular venous distention. SKIN: no suspicious lesions, warm and dry. HEART: no murmurs, irregular rate and rhythm. Tachycardic. LUNGS: clear to auscultation bilaterally. ABDOMEN: soft, nontender. EXTREMITIES: no edema. PERIPHERAL PULSES: equal. NEUROLOGIC: No gross deficits, AAO X 3 Objective Labs and Meds 09/10/22 06:10 09/10/22 06:10 Lab results: Laboratory Results - last 24 hr 09/09/22 09/09/22 09/09/22 19:12 19:17 19:17 WBC 7.1 RBC 5.08 D Hgb 16.6 H D Hct 47.8 H MCV 94.1 MCH 32.7 MCHC 34.7 RDW 12.0 Plt Count 177 MPV 8.8 L Immature Gran % (Auto) 0.3 Neut % (Auto) 76.3 H Lymph % (Auto) 11.7 L [place] % (Auto) 11.0 Eos % (Auto) 0.3 Baso % (Auto) 0.4 Lymph # (Auto) 0.8 L [place] # (Auto) 0.8 Eos # (Auto) 0.0 Baso # (Auto) 0.0 Abs Immat Gran (auto) 0.02 Absolute Neuts (auto) 5.4 Absolute Nucleated RBC 0.000 Nucleated RBC % (auto) 0.0 PT 15.3 H INR 1.3 H APTT 32.1 Sodium Potassium Chloride Carbon Dioxide Anion Gap BUN Creatinine Estim Creat Clear Calc Estimated GFR Random Glucose Calcium Total Bilirubin AST ALT Alkaline Phosphatase Troponin I High Sens B-Natriuretic Peptide Total Protein Albumin TSH Influenza Type A (PCR) NEGATIVE Influenza Type B (PCR) NEGATIVE RSV RNA Qual (PCR) NEGATIVE SARS-CoV-2 RNA (RT-PCR) NEGATIVE 09/09/22 09/09/22 09/09/22 19:17 19:17 19:17 WBC RBC Hgb Hct MCV MCH MCHC RDW Plt Count MPV Immature Gran % (Auto) Neut % (Auto) Lymph % (Auto) [place] % (Auto) Eos % (Auto) Baso % (Auto) Lymph # (Auto) [place] # (Auto) Eos # (Auto) Baso # (Auto) Abs Immat Gran (auto) Absolute Neuts (auto) Absolute Nucleated RBC Nucleated RBC % (auto) PT INR APTT Sodium 141 Potassium 3.9 Chloride 104 Carbon Dioxide 20 L Anion Gap 21 H BUN 20 H Creatinine 1.04 Estim Creat Clear Calc 47.7 Estimated GFR 51 Random Glucose 138 H Calcium 9.3 D Total Bilirubin 1.9 H AST 42 H ALT 39 H Alkaline Phosphatase 84 Troponin I High Sens 79.1 H* D B-Natriuretic Peptide 164 H Total Protein 7.3 Albumin 4.5 TSH 2.61 Influenza Type A (PCR) Influenza Type B (PCR) RSV RNA Qual (PCR) SARS-CoV-2 RNA (RT-PCR) 09/09/22 09/10/22 09/10/22 23:26 06:10 06:10 WBC 6.1 RBC 4.59 Hgb 14.7 Hct 43.6 MCV 95.0 MCH 32.0 MCHC 33.7 RDW 12.1 Plt Count 144 L MPV 8.8 L Immature Gran % (Auto) 0.3 Neut % (Auto) 67.2 Lymph % (Auto) 18.0 L [place] % (Auto) 13.7 H Eos % (Auto) 0.3 Baso % (Auto) 0.5 Lymph # (Auto) 1.1 L [place] # (Auto) 0.8 Eos # (Auto) 0.0 Baso # (Auto) 0.0 Abs Immat Gran (auto) 0.02 Absolute Neuts (auto) 4.1 Absolute Nucleated RBC 0.000 Nucleated RBC % (auto) 0.0 PT INR APTT Sodium 142 Potassium 3.2 L Chloride 109 H Carbon Dioxide 18 L Anion Gap 18 BUN 20 H Creatinine 0.75 Estim Creat Clear Calc 65.4 Estimated GFR > 60 Random Glucose 83 Calcium 8.4 D Total Bilirubin AST ALT Alkaline Phosphatase Troponin I High Sens 187.7 H* D B-Natriuretic Peptide Total Protein Albumin TSH Influenza Type A (PCR) Influenza Type B (PCR) RSV RNA Qual (PCR) SARS-CoV-2 RNA (RT-PCR) 09/10/22 09/10/22 07:53 12:07 WBC RBC Hgb Hct MCV MCH MCHC RDW Plt Count MPV Immature Gran % (Auto) Neut % (Auto) Lymph % (Auto) [place] % (Auto) Eos % (Auto) Baso % (Auto) Lymph # (Auto) [place] # (Auto) Eos # (Auto) Baso # (Auto) Abs Immat Gran (auto) Absolute Neuts (auto) Absolute Nucleated RBC Nucleated RBC % (auto) PT INR APTT Sodium Potassium Chloride Carbon Dioxide Anion Gap BUN Creatinine Estim Creat Clear Calc Estimated GFR Random Glucose Calcium Total Bilirubin AST ALT Alkaline Phosphatase Troponin I High Sens 343.4 H* D 427.6 H* B-Natriuretic Peptide Total Protein Albumin TSH Influenza Type A (PCR) Influenza Type B (PCR) RSV RNA Qual (PCR) SARS-CoV-2 RNA (RT-PCR) Imaging Radiologist's impression: Impressions Chest X-Ray 09/09/22 18:57 IMPRESSION: Unremarkable examination. Abdomen/Pelvis CT 09/09/22 21:30 IMPRESSION: No acute abnormality CT scan abdomen pelvis. Fleischner guidelines were followed. Assessment and Plan (1) Atrial fibrillation with RVR: Status: Acute (2) NSTEMI (non-ST elevated myocardial infarction): Status: Acute Plan 77-year-old female presenting for palpitations and AFib with RVR in the setting of viral gastroenteritis. Clinically euvolemic and not in heart failure. Some dyspnea is present which happens whenever she developed atrial fibrillation. She has palpitations and is symptomatic. Potassium was low but she was given 40 mg of potassium. She is currently taking 50 mg twice a day flecainide. We will give her 1 g of magnesium and 200 mg of flecainide x1 to see if she reverts with sinus rhythm. If she does not break then keep her NPO after midnight for potential cardioversion tomorrow. Continue the Lovenox till she is able to tolerate p.o. medications. She has mildly elevated troponin levels the setting of AFib with RVR as well as viral gastroenteritis. She has no symptoms concerning for acute coronary syndrome. She also angiography last year which did not show any significant coronary disease. Troponin rise is due to AFib with RVR and a type 2 event. Thank you for allowing me to participate in the care of your patient. Please feel free to contact me if you have any questions. Time Spent With Patient Time: Total time managing care of this patient today ____ minutes. Procedures Date of Service Date of Service: 09/10/22
[2022-09-10] MEDS: Magnesium Sulfate/D5W 1 GM/100 ML PIGGYBACK IV (15:36)
[2022-09-10 15:43] VITALS: BP 121/66; PULSE 122; RESP 18; TEMP 36.6; O2SAT 91
[2022-09-10 19:20] VITALS: BP 119/82; PULSE 109; RESP 17; TEMP 36.2; O2SAT 92
[2022-09-10] MEDS: NaPROXEN 500 MG TABLET PO (19:56)
[2022-09-10] MEDS: Montelukast Sodium 10 MG TABLET PO (19:56)
[2022-09-10] MEDS: Gabapentin 300 MG CAPSULE 600 MG PO (19:56)
[2022-09-10] MEDS: Omeprazole 40 MG CAPSULE.DR PO (19:58)
[2022-09-11] VITALS (12 sets, daily range): BP systolic 85–141; BP diastolic 53–95; PULSE 96–115; RESP 16–18; TEMP 36.1–37.1; O2SAT 92–98
--- NOTE | 2022-09-11 | ECG_ITS ---
Test Reason : s/p cardioversion Blood Pressure : / mmHG Vent. Rate : 112 BPM Atrial Rate : 000 BPM P-R Int : 000 ms QRS Dur : 092 ms QT Int : 362 ms P-R-T Axes : 000 048 270 degrees QTc Int : 494 ms Atrial fibrillation with rapid ventricular response Marked ST abnormality, possible inferior subendocardial injury Abnormal ECG When compared with ECG of 10-SEP-2022 11:42, No significant change was found Referred By: Rickie Allison Electronically Signed By:Rickie Allison
--- NOTE | 2022-09-11 | ECG_ITS ---
Test Reason : qtc check Blood Pressure : / mmHG Vent. Rate : 101 BPM Atrial Rate : 000 BPM P-R Int : 000 ms QRS Dur : 096 ms QT Int : 356 ms P-R-T Axes : 000 044 265 degrees QTc Int : 461 ms Atrial fibrillation with rapid ventricular response ST & T wave abnormality, consider inferior ischemia ST & T wave abnormality, consider anterolateral ischemia Abnormal ECG When compared with ECG of 11-SEP-2022 11:33, QT has shortened Referred By: Mary Stack Electronically Signed By:Rickie Allison
[2022-09-11 02:01] LABS: INTERNATIONAL NORM RATIO 1.2 (0.9-1.1); Prothrombin Time 13.4 SEC (10.0-13.1)
[2022-09-11 07:18] LABS: Blood Urea Nitrogen 26 mg/dL (9-16); Calcium 8.6 mg/dL (8.4-10.2); Creatinine Clr Calc Pharmacy 62.1; Estimated Glomerular Filt Rate > 60; Glucose Random 93 mg/dL (60-115)
[2022-09-11 07:41] LABS: Anion Gap 16 (12-20); Carbon Dioxide 20 mmol/L (22-29); Chloride 110 mmol/L (96-108); Potassium 3.4 mmol/L (3.3-5.1); Sodium 143 mmol/L (135-145)
[2022-09-11] MEDS: Enoxaparin Sodium 80 MG/0.8 ML SYRINGE SUBCUT (08:02)
[2022-09-11] MEDS: Multivitamin TABLET 1 TAB PO (08:03)
[2022-09-11] MEDS: Loratadine 10 MG TABLET PO (08:03)
[2022-09-11] MEDS: Ascorbic Acid 250 MG TABLET PO (08:03)
[2022-09-11] MEDS: Empagliflozin 10 MG TABLET PO (08:03)
[2022-09-11] MEDS: Magnesium Oxide 400 MG TABLET 200 MG PO (08:03)
[2022-09-11] MEDS: Vitamin E (Dl,Tocopheryl Acet) 180 MG (400 UNIT) CAPSULE PO (08:03)
[2022-09-11] MEDS: Losartan Potassium 50 MG TABLET 100 MG PO (08:03)
[2022-09-11] MEDS: carvediloL 25 MG TABLET PO ×2 (08:03→20:46)
[2022-09-11] MEDS: Cholecalciferol (Vitamin D3) 10 MCG TABLET PO (08:03)
[2022-09-11] MEDS: Atorvastatin Calcium 40 MG TABLET PO (08:03)
[2022-09-11] MEDS: Furosemide 40 MG TABLET PO (08:03)
[2022-09-11] MEDS: 0.9 % Sodium Chloride Flush 3 ML SYRINGE IVFLUSH ×3 (08:04→20:46)
[2022-09-11] MEDS: Lactated Ringers 1,000 ML 50 ML IVCONT (08:44)
--- NOTE | 2022-09-11 10:05 | MHC.SHP ---
Pre-Procedural Eval Section A Date of Service: 09/11/22 The patient is an INPATIENT: Yes Section B Chief Complaint: PAF Details of Present Illness: PAF, here for cardioversion Allergies: Allergies Allergy/AdvReac Type Severity Reaction Status Date / Time aspirin [ASPIRIN] Allergy Unknown RASH Verified 02/05/22 15:11 Sulfa (Sulfonamide Allergy Unknown RASH Verified 02/05/22 15:11 Antibiotics) [SULFA (SULFONAMIDE ANTIBIOTICS)] adhesives AdvReac Unknown Uncoded 07/29/22 16:09 Plan Diagnosis/Plan: Unchanged I have reviewed the history and physical and performed a pertinent physical examination on my patient. No changes have occurred unless specified. Time Spent With Patient Time: Total time managing care of this patient today ____ minutes.
[2022-09-11] MEDS: Amiodarone/Dextrose 150 MG/100 ML PLAST..BAG 618 MG IV (10:25)
--- NOTE | 2022-09-11 10:33 | P.PNIM_ITS ---
Subjective Subjective Date of Service: 09/11/22 Interval History: seen and examined this morning follow up for rapid afib HR still elevated. patient denies sob, palpitations or chest pain at this time plan for CV today Review of Systems Review of Systems: Yes all other systems are reviewed and are negative Constitutional Constitutional: Denies chills and Denies fever(s) Cardiovascular Cardiovascular: Denies chest pain, Denies palpitations and Denies dyspnea Respiratory Respiratory: Denies cough and Denies dyspnea Gastrointestinal Gastrointestinal: Denies abdominal pain Endocrine Endocrine: Denies palpitations Physical Exam Vital Signs: Vital Signs: Last Vital Signs Temp 97.0 F 09/11/22 09:26 Pulse 112 H 09/11/22 09:26 Resp 16 09/11/22 09:26 BP 128/89 09/11/22 09:26 Pulse Ox 95 09/11/22 09:26 O2 Del Method 09/11/22 09:26 O2 Flow Rate 2 09/09/22 20:41 BMI result Body Mass Index 30.1 Const: General: cooperative, comfortable, no acute distress, alert and awake Nutritional Appearance: overweight Orientation/consciousness: patient oriented x3 Resp: Effort & Inspection: normal respiratory effort and able to speak in complete sentences Auscultation: clear to auscultation bilaterally Cardio: Other: tachycardic, irregular GI: Inspection: No distended Neuro: General: patient oriented x3 Extrem: General: Yes no pedal edema Objective Data Active Medications Acetaminophen (Acetaminophen 325 Mg Tablet) 650 mg PO Q6H PRN PRN Reason: Pain, Mild (Pain Scale 1-3) Albuterol/Ipratropium (Albuterol/Iprat 2.5/0.5mg 3 Ml Ampul.Neb) 3 ml INHALE RQ4H PRN PRN Reason: Wheezing Albuterol/Ipratropium (Albuterol/Iprat 2.5/0.5mg 3 Ml Ampul.Neb) 3 ml INHALE Q4H PRN PRN Reason: wheezing Ascorbic Acid (Ascorbic Acid 250 Mg Tablet) 250 mg PO DAILY [facility] Last Admin: 09/11/22 08:03 Dose: 250 mg Documented By: JUAN PABLO Atorvastatin Calcium (Atorvastatin Calcium 40 Mg Tablet) 40 mg PO DAILY [facility] Last Admin: 09/11/22 08:03 Dose: 40 mg Documented By: JUAN PABLO Carvedilol (Carvedilol 25 Mg Tablet) 25 mg PO BID [facility]; Protocol Last Admin: 09/11/22 08:03 Dose: 25 mg Documented By: JUAN PABLO Empagliflozin (Empagliflozin 10 Mg Tablet) 10 mg PO DAILY [facility] Last Admin: 09/11/22 08:03 Dose: 10 mg Documented By: JUAN PABLO Enoxaparin Sodium (Enoxaparin Sodium 80 Mg/0.8 Ml Syringe) 80 mg 1 mg/kg (80 mg) SUBCUT BID [facility] Last Admin: 09/11/22 08:02 Dose: 80 mg Documented By: JUAN PABLO Furosemide (Furosemide 40 Mg Tablet) 40 mg PO DAILY [facility]; Protocol Last Admin: 09/11/22 08:03 Dose: 40 mg Documented By: JUAN PABLO Gabapentin (Gabapentin 300 Mg Capsule) 600 mg PO BEDTIME [facility] Last Admin: 09/10/22 19:56 Dose: 600 mg Documented By: TREV Lactated Ringer's (Lr) 1,000 mls @ 50 mls/hr IVCONT .Q20H [facility] Last Admin: 09/11/22 08:44 Dose: 50 mls/hr Documented By: JUAN PABLO Amiodarone HCl 150 mg/ (Dextrose) 103 mls @ 618 mls/hr IV ONCE ONE Stop: 09/11/22 10:35 Amiodarone HCl 150 mg/ (Dextrose) 103 mls @ 618 mls/hr IV ONCE ONE Stop: 09/11/22 10:38 Loratadine (Loratadine 10 Mg Tablet) 10 mg PO DAILY [facility] Last Admin: 09/11/22 08:03 Dose: 10 mg Documented By: JUAN PABLO Losartan Potassium (Losartan Potassium 50 Mg Tablet) 100 mg PO DAILY [facility]; Protocol Last Admin: 09/11/22 08:03 Dose: 100 mg Documented By: JUAN PABLO Magnesium Oxide (Magnesium Oxide 400 Mg Tablet) 200 mg PO DAILY [facility] Last Admin: 09/11/22 08:03 Dose: 200 mg Documented By: JUAN PABLO Melatonin (Melatonin 3 Mg Tablet) 6 mg PO BEDTIME PRN PRN Reason: Insomnia Montelukast Sodium (Montelukast Sodium 10 Mg Tablet) 10 mg PO BEDTIME [facility] Last Admin: 09/10/22 19:56 Dose: 10 mg Documented By: TREV Multivitamins/Vitamin C (Multivitamin Tablet) 1 tab PO DAILY [facility] Last Admin: 09/11/22 08:03 Dose: 1 tab Documented By: JUAN PABLO Omeprazole (Omeprazole 40 Mg Capsule.) 40 mg PO BEDTIME [facility] Last Admin: 09/10/22 19:58 Dose: 40 mg Documented By: TREV Pharmacy Consult (Consult Rx Perform Med Rec) 1 each MISCELLANE ONCE PRN PRN Reason: Consult order Sodium Chloride (0.9 % Sodium Chloride Flush 3 Ml Syringe) 3 ml IVFLUSH QSHIFT [facility] Last Admin: 09/11/22 08:04 Dose: 3 ml Documented By: JUAN PABLO Vitamin D (Cholecalciferol (Vitamin D3) 10 Mcg Tablet) 10 mcg PO DAILY [facility] Last Admin: 09/11/22 08:03 Dose: 10 mcg Documented By: JUAN PABLO Vitamin E (Vitamin E (Dl,Tocopheryl Acet) 180 Mg (400 Unit) Capsule) 180 mg PO DAILY [facility] Last Admin: 09/11/22 08:03 Dose: 180 mg Documented By: JUAN PABLO Labs 09/10/22 06:10 09/11/22 05:54 Labs: Laboratory Results - last 24 hr 09/10/22 09/11/22 09/11/22 12:07 01:31 05:54 PT 13.4 H INR 1.2 H Anion Gap 16 Estim Creat Clear Calc 62.1 Estimated GFR > 60 Random Glucose 93 Calcium 8.6 Troponin I High Sens 427.6 H* Assessment and Plan (1) Atrial fibrillation with RVR: Status: Acute Plan This is a 77-year-old female with pertinent history of congestive heart failure with preserved ejection fraction, paroxysmal atrial fibrillation on Xarelto, essential hypertension, pulmonary hypertension admitted for AFib with RVR and NSTEMI. AFib with RVR HR uncontrolled on xarelto at baseline, was transitioned to therapeutic lovenox on admission due to NSTEMI continue carvedilol diltiazem on hold ECHO - preserved EF, no WMA seen by cardiology - plan for CV today NSTEMI secondary to afib RVR recent angiography without any significant coronary dz per cardiology Relative polycythemia likely in the setting of dehydration in the setting of GI losses- resolved HFpEF -Currently compensated -continue PO lasix Essential hypertension -continue home p.o. antihypertensives, except diltiazem as above Moderate persistent asthma -Continue home inhalers Mixed hyperlipidemia -On statin DVT prophylaxis:? Therapeutic Lovenox Full code Attending - dr. johnson Pt requires ongoing inpt stay for management of symptomatic AFib with RVR and NSTEMI requiring therapeutic lovenox, close telemetry monitoring, and expert consultation to prevent further cardiopulmonary decompensation.? Time Spent With Patient Time: Total time managing care of this patient today ____ minutes. Quality Stroke Does the patient have a stroke diagnosis?: No VTE Prior VTE?: No VTE Risk Level:: Medical - moderate - high VTE Device Contraindication: Treatment Not Indicated VTE Drug Contraindication: N/A - Med Ordered
--- NOTE | 2022-09-11 10:36 | HO.CARDIVERS ---
Cardioversion Procedure Note Cardioversion Date of Procedure: 09/11/22 Ordering Provider: Rickie Allison MD Performing Provider: Rickie Allison MD Indication for Procedure: Afib Consent: Verbal and Written consent was obtained from the patient before starting. The patient was made aware of the risk of stroke, skin burn and failure. Procedure: After consent obtained, defib pads were attached and the patient was sedated by the anesthesia team. Once adequate sedation achieved, We gave synchronized 200 J shock x 2 which converted the patient to sinus rhythm transiently but she went back into Afib. At this stage we gave a 150 mg Amiodarone bolus and tried again and she maintained sinus rhythm for 2 beats and went back into Afib. Impression: Unsuccessful cardioversion Recommendations: c/w Adán Will need different anti arrhythmic therapy and reattempt as she has symptomatic Afib.
--- NOTE | 2022-09-11 11:40 | P.PNCA_ITS ---
Subjective Subjective Date of Service: 09/11/22 Interval history: Seen and examined at bedside before cardioversion. Physical Exam Vital Signs: Last Vital Signs Temp 97.1 F 09/11/22 11:07 Pulse 104 H 09/11/22 11:07 Resp 16 09/11/22 11:07 BP 118/85 09/11/22 11:07 Pulse Ox 95 09/11/22 11:07 O2 Del Method 09/11/22 11:07 O2 Flow Rate 2 09/11/22 11:07 BMI result Body Mass Index 30.1 GENERAL APPEARANCE: in no acute distress, pleasant. NECK: no carotid bruit, no jugular venous distention. SKIN: no suspicious lesions, warm and dry. HEART: no murmurs, irregular rate and rhythm. Tachycardic. LUNGS: clear to auscultation bilaterally. ABDOMEN: soft, nontender. EXTREMITIES: no edema. PERIPHERAL PULSES: equal. NEUROLOGIC: No gross deficits, AAO X 3 Objective Labs and Meds 09/10/22 06:10 09/11/22 05:54 Lab results: Laboratory Results - last 24 hr 09/10/22 09/11/22 09/11/22 12:07 01:31 05:54 PT 13.4 H INR 1.2 H Sodium 143 Potassium 3.4 Chloride 110 H Carbon Dioxide 20 L Anion Gap 16 BUN 26 H Creatinine 0.79 Estim Creat Clear Calc 62.1 Estimated GFR > 60 Random Glucose 93 Calcium 8.6 Troponin I High Sens 427.6 H* Progress Note: A&P Assessment and plan (1) Atrial fibrillation with RVR: Status: Acute Plan 77-year-old female with symptomatic atrial fibrillation with rapid ventricular response. She was previously cardioverted and started on flecainide. It appears he had a viral illness and gastroenteritis and came with atrial fibrillation again. Echocardiography showing that her left atrium is severely enlarged. She also has moderate left ventricular hypertrophy. We attempted to cardiovert her today but this was unsuccessful. She clearly broke out of atrial fibrillation with sinus rhythm but went back into atrial fibrillation instantly. She was given 150 mg of amiodarone bolus also but still did not maintain sinus rhythm. I had a discussion with her primary patient account representative Dr. Brennan. We will increase the flecainide to 150 mg 2 times a day and re-attempt the cardioversion in couple of weeks. In the meantime she should stay on her other medications as before. If she is able to tolerate p.o. medications consistently then sent out to should be resumed and Lovenox should be stopped. Mild troponin elevation was due to atrial fibrillation with rapid ventricular response. Thank you for allowing me to participate in the care of your patient. Please feel free to contact me if you have any questions. Time Spent With Patient Time: Total time managing care of this patient today ____ minutes. Progress Note: Quality Stroke Does the patient have a stroke diagnosis?: No Procedures Date of Service Date of Service: 09/11/22
[2022-09-11] MEDS: Potassium Chloride ER 20 MEQ TAB.ER.PRT 40 MEQ PO (11:46)
[2022-09-11] MEDS: Potassium Chloride ER 20 MEQ TAB.ER.PRT PO (12:50)
[2022-09-11] MEDS: Magnesium Sulfate/D5W 1 GM/100 ML PIGGYBACK IV (12:57)
[2022-09-11] MEDS: Rivaroxaban 20 MG TABLET PO (17:16)
[2022-09-11] MEDS: Flecainide Acetate 50 MG TABLET 150 MG PO (20:45)
[2022-09-11] MEDS: Montelukast Sodium 10 MG TABLET PO (20:45)
[2022-09-11] MEDS: Gabapentin 300 MG CAPSULE 600 MG PO (20:46)
[2022-09-11] MEDS: dilTIAZem HCL CD 120 MG CAP.ER.DEG PO (20:46)
[2022-09-11] MEDS: Omeprazole 40 MG CAPSULE.DR PO (20:46)
[2022-09-12] VITALS (8 sets, daily range): BP systolic 110–154; BP diastolic 54–82; PULSE 65–112; RESP 15–20; TEMP 36–37.1; O2SAT 91–99
--- NOTE | 2022-09-12 | ECG_ITS ---
Test Reason : check qtc Blood Pressure : / mmHG Vent. Rate : 092 BPM Atrial Rate : 288 BPM P-R Int : 000 ms QRS Dur : 094 ms QT Int : 360 ms P-R-T Axes : 000 037 250 degrees QTc Int : [address] & T wave abnormality, consider anterolateral ischemia Abnormal ECG When compared with ECG of 11-SEP-2022 15:41, No significant changes seen Referred By: Mary Stack Electronically Signed By:Rickie Allison
[2022-09-12 07:28] LABS: Anion Gap 16 (12-20); Blood Urea Nitrogen 28 mg/dL (9-16); Calcium 8.6 mg/dL (8.4-10.2); Carbon Dioxide 20 mmol/L (22-29); Chloride 112 mmol/L (96-108); Creatinine Clr Calc Pharmacy 66.3; Estimated Glomerular Filt Rate > 60; Glucose Random 107 mg/dL (60-115); Potassium 3.7 mmol/L (3.3-5.1); Sodium 144 mmol/L (135-145)
[2022-09-12] MEDS: Losartan Potassium 50 MG TABLET 100 MG PO (08:25)
[2022-09-12] MEDS: Cholecalciferol (Vitamin D3) 10 MCG TABLET PO (08:26)
[2022-09-12] MEDS: Atorvastatin Calcium 40 MG TABLET PO (08:26)
[2022-09-12] MEDS: carvediloL 25 MG TABLET PO ×2 (08:26→21:06)
[2022-09-12] MEDS: Ascorbic Acid 250 MG TABLET PO (08:26)
[2022-09-12] MEDS: Empagliflozin 10 MG TABLET PO (08:26)
[2022-09-12] MEDS: Vitamin E (Dl,Tocopheryl Acet) 180 MG (400 UNIT) CAPSULE PO (08:26)
[2022-09-12] MEDS: Furosemide 40 MG TABLET PO (08:26)
[2022-09-12] MEDS: Flecainide Acetate 50 MG TABLET 150 MG PO ×2 (08:26→21:07)
[2022-09-12] MEDS: Multivitamin TABLET 1 TAB PO (08:26)
[2022-09-12] MEDS: Loratadine 10 MG TABLET PO (08:26)
[2022-09-12] MEDS: Magnesium Oxide 400 MG TABLET 200 MG PO (08:26)
[2022-09-12] MEDS: 0.9 % Sodium Chloride Flush 3 ML SYRINGE IVFLUSH ×3 (08:30→21:09)
--- NOTE | 2022-09-12 09:45 | PC.RT ---
pt stated sge didnt want a neb tx as her dosctors elvira he BS were clear. assessed her and listen to her lunga nd they are clear barrera. She just has a raspy congested cough but productive.
--- NOTE | 2022-09-12 10:23 | PM.PNCARD ---
Subjective Subjective Date of Service: 09/12/22 Interval history: Seen examined at bedside. No symptoms. Telemetry is showing AFib with RVR. She had failed cardioversion history. Physical Exam Vital Signs: Last Vital Signs Temp 96.8 F 09/12/22 07:26 Pulse 112 H 09/12/22 07:26 Resp 16 09/12/22 07:26 BP 154/72 H 09/12/22 07:26 Pulse Ox 99 09/12/22 07:26 O2 Del Method 09/12/22 07:26 O2 Flow Rate 2 09/11/22 11:07 BMI result Body Mass Index 30.1 GENERAL APPEARANCE: in no acute distress, pleasant. NECK: no carotid bruit, no jugular venous distention. SKIN: no suspicious lesions, warm and dry. HEART: no murmurs, irregular rate and rhythm. Tachycardic. LUNGS: clear to auscultation bilaterally. ABDOMEN: soft, nontender. EXTREMITIES: no edema. PERIPHERAL PULSES: equal. NEUROLOGIC: No gross deficits, AAO X 3 Objective Labs and Meds 09/10/22 06:10 09/12/22 06:56 Lab results: Laboratory Results - last 24 hr 09/12/22 06:56 Sodium 144 Potassium 3.7 Chloride 112 H Carbon Dioxide 20 L Anion Gap 16 BUN 28 H Creatinine 0.74 Estim Creat Clear Calc 66.3 Estimated GFR > 60 Random Glucose 107 Calcium 8.6 Progress Note: A&P Assessment and plan (1) Atrial fibrillation with RVR: Status: Acute Plan Pleasant 77-year-old female who has symptomatic AFib with RVR. She had 3 ablations in the past. Previously was on amiodarone but had decreased DLCO on the pulmonary function test and was taken off. She is also describing that at some stage she was on sotalol which also failed. We tried to cardiovert her were she went back into atrial fibrillation after cardioversion. After discussion with her primary demonstrator sewing techniques she has been put on flecainide 150 mg twice a day. She is also on carvedilol 25 mg twice a day and diltiazem 120 mg daily. Heart rates are still 110s to 120s. She is otherwise stable. Her blood pressure is elevated. I think the observe for the higher dose of flecainide and see if that improves her heart rate. If she does not improve significantly then I would recommend increasing the diltiazem to 240 mg. Eventually our plan was to attempt 3 cardioversion again. I have explained to her that if she improves with rate control strategy then she can go home and we can do it as outpatient. If she does not improve and continues to get symptoms a cannot tolerate higher doses of diltiazem or flecainide then we may have to keep in the hospital till Thursday and re-attempt cardioversion. I have also discussed with her that if all strategies fails then last resort would be to do AV estiven ablation and pacing. Thank you for allowing me to participate in the care of your patient. Please feel free to contact me if you have any questions. Time Spent With Patient Time: Total time managing care of this patient today ____ minutes. Progress Note: Quality Stroke Does the patient have a stroke diagnosis?: No Procedures Date of Service Date of Service: 09/12/22
[2022-09-12 10:44] LABS: Magnesium 2.1 mg/dL (1.6-2.6)
--- NOTE | 2022-09-12 12:13 | P.PNIM_ITS ---
Subjective Subjective Date of Service: 09/12/22 Interval History: seen and examined this morning follow up for rapid afib HR still uncontrolled, but improving reports she always has sob. unchanged from baseline no chest pain or palpitations Review of Systems Review of Systems: Yes all other systems are reviewed and are negative Constitutional Constitutional: Denies chills and Denies fever(s) Cardiovascular Cardiovascular: Denies chest pain, Denies palpitations and Denies dyspnea Respiratory Respiratory: Denies dyspnea Gastrointestinal Gastrointestinal: Denies abdominal pain, Denies nausea and Denies vomiting Endocrine Endocrine: Denies palpitations Physical Exam Vital Signs: Vital Signs: Last Vital Signs Temp 98.6 F 09/12/22 11:10 Pulse 86 09/12/22 11:10 Resp 16 09/12/22 11:10 BP 113/71 09/12/22 11:10 Pulse Ox 91 L 09/12/22 11:10 O2 Del Method 09/12/22 11:10 O2 Flow Rate 2 09/11/22 11:07 BMI result Body Mass Index 30.1 Const: General: cooperative, comfortable, no acute distress, alert and awake Nutritional Appearance: overweight Orientation/consciousness: patient oriented x3 Resp: Effort & Inspection: normal respiratory effort and able to speak in complete sentences Auscultation: clear to auscultation bilaterally Cardio: Other: tachycardic, irregular GI: Inspection: No distended Neuro: General: patient oriented x3 Extrem: General: Yes no pedal edema Objective Data Active Medications Acetaminophen (Acetaminophen 325 Mg Tablet) 650 mg PO Q6H PRN PRN Reason: Pain, Mild (Pain Scale 1-3) Albuterol/Ipratropium (Albuterol/Iprat 2.5/0.5mg 3 Ml Ampul.Neb) 3 ml INHALE Q4H PRN PRN Reason: wheezing Ascorbic Acid (Ascorbic Acid 250 Mg Tablet) 250 mg PO DAILY [facility] Last Admin: 09/12/22 08:26 Dose: 250 mg Documented By: EULALIA Atorvastatin Calcium (Atorvastatin Calcium 40 Mg Tablet) 40 mg PO DAILY [facility] Last Admin: 09/12/22 08:26 Dose: 40 mg Documented By: EULALIA Carvedilol (Carvedilol 25 Mg Tablet) 25 mg PO BID [facility]; Protocol Last Admin: 09/12/22 08:26 Dose: 25 mg Documented By: EULALIA Diltiazem HCl (Diltiazem Hcl Cd 120 Mg Cap.Er.Deg) 120 mg PO BEDTIME [facility]; Protocol Last Admin: 09/11/22 20:46 Dose: 120 mg Documented By: MARTÍN Empagliflozin (Empagliflozin 10 Mg Tablet) 10 mg PO DAILY [facility] Last Admin: 09/12/22 08:26 Dose: 10 mg Documented By: EULALIA Flecainide Acetate (Flecainide Acetate 50 Mg Tablet) 150 mg PO BID [facility] Last Admin: 09/12/22 08:26 Dose: 150 mg Documented By: EULALIA Furosemide (Furosemide 40 Mg Tablet) 40 mg PO DAILY [facility]; Protocol Last Admin: 09/12/22 08:26 Dose: 40 mg Documented By: EULALIA Gabapentin (Gabapentin 300 Mg Capsule) 600 mg PO BEDTIME [facility] Last Admin: 09/11/22 20:46 Dose: 600 mg Documented By: MARTÍN Levalbuterol HCl (Levalbuterol Hcl 1.25 Mg/0.5 Ml Vial.Neb) 1.25 mg INHALE Q3H PRN PRN Reason: wheezing, shortness of breath Loratadine (Loratadine 10 Mg Tablet) 10 mg PO DAILY [facility] Last Admin: 09/12/22 08:26 Dose: 10 mg Documented By: EULALIA Losartan Potassium (Losartan Potassium 50 Mg Tablet) 100 mg PO DAILY [facility]; Protocol Last Admin: 09/12/22 08:25 Dose: 100 mg Documented By: EULALIA Magnesium Oxide (Magnesium Oxide 400 Mg Tablet) 200 mg PO DAILY [facility] Last Admin: 09/12/22 08:26 Dose: 200 mg Documented By: EULALIA Melatonin (Melatonin 3 Mg Tablet) 6 mg PO BEDTIME PRN PRN Reason: Insomnia Montelukast Sodium (Montelukast Sodium 10 Mg Tablet) 10 mg PO BEDTIME [facility] Last Admin: 09/11/22 20:45 Dose: 10 mg Documented By: MARTÍN Multivitamins/Vitamin C (Multivitamin Tablet) 1 tab PO DAILY [facility] Last Admin: 09/12/22 08:26 Dose: 1 tab Documented By: EULALIA Omeprazole (Omeprazole 40 Mg Capsule.) 40 mg PO BEDTIME [facility] Last Admin: 09/11/22 20:46 Dose: 40 mg Documented By: MARTÍN Pharmacy Consult (Consult Rx Perform Med Rec) 1 each MISCELLANE ONCE PRN PRN Reason: Consult order Rivaroxaban (Rivaroxaban 20 Mg Tablet) 20 mg PO DAILY@1700 [facility] Last Admin: 09/11/22 17:16 Dose: 20 mg Documented By: JUAN PABLO Sodium Chloride (0.9 % Sodium Chloride Flush 3 Ml Syringe) 3 ml IVFLUSH QSHIFT [facility] Last Admin: 09/12/22 08:30 Dose: 3 ml Documented By: EULALIA Vitamin D (Cholecalciferol (Vitamin D3) 10 Mcg Tablet) 10 mcg PO DAILY [facility] Last Admin: 09/12/22 08:26 Dose: 10 mcg Documented By: EULALIA Vitamin E (Vitamin E (Dl,Tocopheryl Acet) 180 Mg (400 Unit) Capsule) 180 mg PO DAILY [facility] Last Admin: 09/12/22 08:26 Dose: 180 mg Documented By: EULALIA Labs 09/10/22 06:10 09/12/22 06:56 Labs: Laboratory Results - last 24 hr 09/12/22 06:56 Anion Gap 16 Estim Creat Clear Calc 66.3 Estimated GFR > 60 Random Glucose 107 Calcium 8.6 Magnesium 2.1 Assessment and Plan (1) Atrial fibrillation with RVR: Status: Acute Plan This is a 77-year-old female with pertinent history of congestive heart failure with preserved ejection fraction, paroxysmal atrial fibrillation on Xarelto, essential hypertension, pulmonary hypertension admitted for AFib with RVR and NSTEMI. AFib with RVR unsuccessful CV 2/2. HR uncontrolled but improving felcanide dose increased to 150bid continue carvedilol, cardizem transitioned back to xarelto ECHO - preserved EF, no WMA cardiology following, if no improvement in HR by tomorrow, possible repeat attempt at CV Thursday follow electrolytes NSTEMI secondary to demand ischemia from afib RVR recent angiography without any significant coronary dz per cardiology Relative polycythemia likely in the setting of dehydration in the setting of GI losses- resolved HFpEF Currently compensated continue PO lasix Essential hypertension continue home p.o. antihypertensives, except diltiazem as above Moderate persistent asthma Continue home inhalers Mixed hyperlipidemia On statin DVT prophylaxis:?xarelto Full code Attending - dr. johnson Pt requires ongoing inpt stay for management of symptomatic AFib with RVR and N STEMI requiring therapeutic lovenox, close telemetry monitoring, and expert consultation to prevent further cardiopulmonary decompensation.? Time Spent With Patient Time: Total time managing care of this patient today ____ minutes. Quality Stroke Does the patient have a stroke diagnosis?: No VTE Prior VTE?: No VTE Risk Level:: Medical - moderate - high VTE Device Contraindication: Treatment Not Indicated VTE Drug Contraindication: N/A - Med Ordered
--- NOTE | 2022-09-12 12:17 | HO.POSTANES ---
Post Anesthesia Evaluation Post Anesthesia Evaluation Vital Signs: Vital Signs Temp Pulse Resp BP Pulse Ox O2 Del Method 09/12/22 11:10 98.6 F 86 16 113/71 91 L Room Air 09/12/22 07:26 96.8 F 112 H 16 154/72 H 99 Room Air 09/12/22 03:23 98.2 F 88 20 110/82 98 Room Air 09/12/22 01:01 88 Anesthesia: General Mental Status: Awake Pain Control: Satisfactory Nausea/Vomiting: None Hydration: Adequate Anesthesia-Related Issues: No Anes. Related Issues
--- NOTE | 2022-09-12 12:47 | MHC.CM.PN ---
per rounds pt may dc this weekend dc plan remainsm the same hoime no servceis
[2022-09-12] MEDS: Potassium Chloride ER 20 MEQ TAB.ER.PRT 40 MEQ PO (16:21)
[2022-09-12] MEDS: Rivaroxaban 20 MG TABLET PO (16:22)
[2022-09-12] MEDS: dilTIAZem HCL CD 120 MG CAP.ER.DEG PO (21:06)
[2022-09-12] MEDS: Omeprazole 40 MG CAPSULE.DR PO (21:07)
[2022-09-12] MEDS: Gabapentin 300 MG CAPSULE 600 MG PO (21:07)
[2022-09-12] MEDS: Montelukast Sodium 10 MG TABLET PO (21:07)
[2022-09-13 03:31] VITALS: BP 104/56; PULSE 60; RESP 15; TEMP 36.1; O2SAT 92
[2022-09-13 06:56] LABS: Anion Gap 14 (12-20); Blood Urea Nitrogen 31 mg/dL (9-16); Calcium 8.6 mg/dL (8.4-10.2); Carbon Dioxide 21 mmol/L (22-29); Chloride 112 mmol/L (96-108); Creatinine Clr Calc Pharmacy 58.4; Estimated Glomerular Filt Rate > 60; Glucose Random 104 mg/dL (60-115); Potassium 5.7 mmol/L (3.3-5.1); Sodium 141 mmol/L (135-145)
[2022-09-13 08:00] VITALS: BP 130/76; PULSE 72; RESP 18; TEMP 36.6; O2SAT 97
[2022-09-13] MEDS: Cholecalciferol (Vitamin D3) 10 MCG TABLET PO (09:21)
[2022-09-13] MEDS: Flecainide Acetate 50 MG TABLET 150 MG PO (09:21)
[2022-09-13] MEDS: 0.9 % Sodium Chloride Flush 3 ML SYRINGE IVFLUSH (09:21)
[2022-09-13] MEDS: Vitamin E (Dl,Tocopheryl Acet) 180 MG (400 UNIT) CAPSULE PO (09:22)
[2022-09-13] MEDS: Furosemide 40 MG TABLET PO (09:22)
[2022-09-13] MEDS: Losartan Potassium 50 MG TABLET 100 MG PO (09:22)
[2022-09-13] MEDS: Empagliflozin 10 MG TABLET PO (09:22)
[2022-09-13] MEDS: Loratadine 10 MG TABLET PO (09:22)
[2022-09-13] MEDS: Atorvastatin Calcium 40 MG TABLET PO (09:22)
[2022-09-13] MEDS: carvediloL 25 MG TABLET PO (09:22)
[2022-09-13] MEDS: Multivitamin TABLET 1 TAB PO (09:22)
[2022-09-13] MEDS: Ascorbic Acid 250 MG TABLET PO (09:22)
[2022-09-13] MEDS: Magnesium Oxide 400 MG TABLET 200 MG PO (09:23)
[2022-09-13] MEDS: Sodium Zirconium Cyclosilicate 10 GM POWD.PACK PO (11:15)
[2022-09-13 12:00] VITALS: BP 118/64; PULSE 72; RESP 18; TEMP 36.8; O2SAT 96
--- NOTE | 2022-09-13 12:22 | PM.PNCARD ---
Subjective Subjective Date of Service: 09/13/22 Interval history: Patient was seen examined bedside. She has reverted back to sinus rhythm spontaneously overnight was the flecainide dose was increased to 150 mg twice a day. Physical Exam Vital Signs: Last Vital Signs Temp 97.9 F 09/13/22 08:00 Pulse 72 09/13/22 08:00 Resp 18 09/13/22 08:00 BP 130/76 09/13/22 08:00 Pulse Ox 97 09/13/22 08:00 O2 Del Method 09/13/22 08:00 O2 Flow Rate 2 09/11/22 11:07 BMI result Body Mass Index 30.1 GENERAL APPEARANCE: in no acute distress, pleasant. NECK: no carotid bruit, no jugular venous distention. SKIN: no suspicious lesions, warm and dry. HEART: no murmurs, regular rate rhythm. LUNGS: clear to auscultation bilaterally. ABDOMEN: soft, nontender. EXTREMITIES: no edema. PERIPHERAL PULSES: equal. NEUROLOGIC: No gross deficits, AAO X 3 Objective Labs and Meds 09/10/22 06:10 09/13/22 06:15 Lab results: Laboratory Results - last 24 hr 09/13/22 06:15 Sodium 141 Potassium 5.7 H D Chloride 112 H Carbon Dioxide 21 L Anion Gap 14 BUN 31 H Creatinine 0.84 Estim Creat Clear Calc 58.4 Estimated GFR > 60 Random Glucose 104 Calcium 8.6 Progress Note: A&P Assessment and plan (1) Paroxysmal atrial fibrillation: Status: Acute Plan Pleasant 77-year-old female who presented with AFib with RVR in the setting of viral gastroenteritis. She had mild NSTEMI which was a type 2 injury. We tried to cardiovert her but unfortunately she did not maintain sinus rhythm. Her flecainide dose was increased to 150 mg twice a day and she spontaneously converted to sinus rhythm. Blood pressure control is good. I think she can return home with 150 mg flecainide b.i.d., Cardizem 120 mg and carvedilol 25 mg twice a day. She already has an appointment to see Dr. Brennan next week. Thank you for allowing me to participate in the care of your patient. Please feel free to contact me if you have any questions. Time Spent With Patient Time: Total time managing care of this patient today ____ minutes. Progress Note: Quality Stroke Does the patient have a stroke diagnosis?: No Procedures Date of Service Date of Service: 09/13/22
[2022-09-13 13:30] LABS: Potassium 3.5 mmol/L (3.3-5.1)
--- NOTE | 2022-09-13 13:44 | PM.DS ---
DS: Providers Provider Date of Service: 09/13/22 Date of admission: 09/10/22 00:14 Primary care physician: Yair Huff MD Consults: 09/10/22 00:21 Consult to Cardiology Routine Consulting Provider: Rickie Allison Reason for consultation: NSTEMI Has provider been notified: Yes Attending physician on discharge: Tien Gallo Discharging clinician: Olivia Cortez DS: Diagnosis Discharge Diagnosis (1) Paroxysmal atrial fibrillation: Status: Acute DS: Summary Hospital Course Hospital Course: HP as per admitting provider This is a 76-year-old female with past medical history of AFib, diastolic heart failure, HTN, pulmonary hypertension who presents to the hospital with complaints of palpitations.? Patient reports that she has been having on on palpitations for the past few days.? She has not had any dizziness, but felt tired, she feels that there is mice running in her chest, she denies any chest pain, denies any shortness of breath, she has been having dry heaves with no vomiting, no abdominal pain, no diarrhea constipation, no urinary symptoms and no lower extremity edema.? She called her crystallography teacher Dr. Brennan of recommended taking extra dose of her Cardizem which did not really resolve her symptoms, therefore decided to come to the hospital with recommendation from her crystallography teacher.? In the ED patient presented with a heart rate in the 110s-130s,? received 10 mg of IV Cardizem x2 but remained tachycardic, patient was started on diltiazem drip. Other vitals on arrival were significant for temp of 98.3?, respiratory rate of 20, blood pressure 156/118, satting 96 on room air. Labs are significant for WBC count of 6.8, hemoglobin of 16.4, hematocrit 40.2, total bilirubin of 1.7, direct bili of 0.6, AST of 56 ALT of 77, BNP of 328, UA positive for leukocyte Estrace and WBC. Chest x-ray shows no acute cardiopulmonary findings. EKG showed AFib with RVR and inverted T-waves in inferior leads. Patient will be admitted for further management . AFib with RVR unsuccessful CV 2/2. HR uncontrolled but improving flecanide dose increased to 150bid continue carvedilol, cardizem transitioned back to xarelto ECHO - preserved EF, no WMA HR controlled with flecanide plan for o/p follow up with cardiology NSTEMI secondary to demand ischemia from afib RVR recent angiography without any significant coronary dz per cardiology Dry cough CXR neg for acute infection home with benzonatate p.r.n. Relative polycythemia likely in the setting of dehydration in the setting of GI losses- resolved HFpEF Currently compensated continue PO lasix Essential hypertension continue home p.o. antihypertensives, except diltiazem as above Moderate persistent asthma Continue home inhalers Mixed hyperlipidemia On statin Time Spent with Patient Time attestation: Total time managing care of this patient today ____ minutes. Discharge coordination time: Greater than 30 minutes Quality: Safe Use of Opioids Does Pt have an Active Cancer Diagnosis on the Problem List?: No Quality: Stroke Does the patient have a stroke diagnosis?: No Physical Exam Vital Signs: Vital Signs: Last Vital Signs Temp 98.2 F 09/13/22 12:00 Pulse 72 09/13/22 12:00 Resp 18 09/13/22 12:00 BP 118/64 09/13/22 12:00 Pulse Ox 96 09/13/22 12:00 O2 Del Method 09/13/22 12:00 O2 Flow Rate 2 09/11/22 11:07 BMI result Body Mass Index 30.1 Appearing in no acute distress head is normocephalic atraumatic eyes pupils are PERRLA sclera is anicteric mouth throat mucous membranes are intact and moist neck is supple no lymphadenopathy, no JVD noted lung sounds are clear to auscultation heart regular rate rhythm, clear S1, S2 positive bowel sounds, abdomen is soft, nontender neuro patient is alert x3, no focal deficits DS: Data Data Completed and Pending Completed studies during hospitalization [Text1]: Procedures Advent of Cardiac Rhythm, Single (07/29/22) Ultrasonography of Heart with Aorta, Transesophageal (07/27/21) Labs on day of discharge: Laboratory Results - last 24 hr 09/13/22 09/13/22 06:15 12:48 Sodium 141 Potassium 5.7 H D 3.5 D Chloride 112 H Carbon Dioxide 21 L Anion Gap 14 BUN 31 H Creatinine 0.84 Estim Creat Clear Calc 58.4 Estimated GFR > 60 Random Glucose 104 Calcium 8.6 Discharge Plan Discharge Anticipated Discharge Date/Time: 09/13/22 13:37 Patient Disposition: Home, Self-Care Discharge Diagnosis: Afib RVR Demand ischemia NSTEMI Referrals: Rickie Allison MD [Physician] - 1 Week Yair Huff MD [Primary Care Provider] - 1 Week Discharge Medications: New flecainide 50 mg Tablet 150 mg PO BID Qty: 60 0RF benzonatate 100 mg capsule 100 mg PO BID PRN (Reason: cough) Qty: 14 0RF Continued ipratropium-albuterol 0.5 mg-3 mg(2.5 mg base)/3 mL solution for nebulization 3 ml inhalation Q4-6H PRN (Reason: wheezing) 30 Days Qty: 180 6RF atorvastatin 40 mg tablet 40 mg PO DAILY 90 Days Qty: 90 3RF Jardiance 10 mg tablet 10 mg PO DAILY Qty: 30 2RF carvedilol 25 mg tablet 25 mg PO BID Qty: 60 5RF diltiazem HCl [Cardizem CD] 120 mg capsule,extended release 24hr 120 mg PO DAILY Qty: 30 1RF Protocol: Hold for SBP/HR < HOLD for SBP < : 90 HOLD for HR < : 60 Rx Instructions: Keep appt w Dr. Brennan on 09/18/22 @ 245pm flecainide 50 mg tablet 50 mg PO BID Qty: 60 1RF Rx Instructions: Keep appt w Dr. Brennan on 09/18/22 @ 245pm coenzyme Q10 100 mg Tablet 100 mg PO DAILY multivitamin Tablet 1 tab PO DAILY magnesium 250 mg Tablet 250 mg PO DAILY ascorbic acid (vitamin C) 250 mg Tablet 250 mg PO DAILY cholecalciferol (vitamin D3) [Vitamin D3] 10 mcg (400 unit) Capsule 10 mcg PO DAILY Rx Instructions: patient not sure of her dose furosemide 20 mg tablet 40 mg PO DAILY vitamin E (dl, acetate) 180 mg (400 unit) Capsule 180 mg PO DAILY Xarelto 20 mg tablet 20 mg PO DAILY@1700 montelukast 10 mg tablet 10 mg PO BEDTIME gabapentin 300 mg capsule 600 mg PO BEDTIME omeprazole 20 mg capsule,delayed release(DR/EC) 40 mg PO BEDTIME losartan 100 mg tablet 100 mg PO DAILY fexofenadine [Shea Allergy] 180 mg tablet 180 mg PO DAILY meloxicam 15 mg tablet 15 mg PO DAILY turmeric 400 mg capsule 400 mg PO DAILY Discharge Orders: Discharge Order (Routine); Ordered 09/13/22 Ordered By: Olivia Cortez Diet: Advance to usual diet Activity on Discharge: As tolerated Stand Alone Forms: Patient Portal Discharge page Care Plan Goals: No further episodes of rapid ventricular response Health Concerns: Afib RVR Demand ischemia NSTEMI Plan of Treatment: Follow-up with primary care provider as needed Follow-up with crystallography teacher for possible outpatient cardioversion Take all medications as prescribed Assessment: See discharge summary
--- NOTE | 2022-09-13 15:07 | MHC.CM.PN ---
DP: IMM DELIVERED PT HAS BEEN MEDICALLY CLEARED TO DC HOME, NO SERVICES. RN AWARE. PT HAS OWN [facility] HOME.
== END 2022-09-13 15:13 | disposition home or self-care (01) | DRG 281 ==
LOC: HO.ED 09-10 00:31 → HO.EDOVER 09-10 01:44 → HO.IMC 09-10 02:20
PROVIDERS: Internal Medicine Cardiovascular Disease; Physician Assistant; Physician Assistant Medical; Admitting Provider Student in an Organized Health Care Education/Training Program; Emergency Provider Emergency Medicine Emergency Medical Services; PCP Family Medicine; Visit Provider Nurse Practitioner Acute Care
PROC: 5A2204Z Restoration of Cardiac Rhythm, Single (ICD-10-PCS; principal; 2022-09-11 10:00)
DX: I48.0 Paroxysmal atrial fibrillation (principal); I21.A1 Myocardial infarction type 2; I50.32 Chronic diastolic (congestive) heart failure; A08.4 Viral intestinal infection, unspecified; J45.40 Moderate persistent asthma, uncomplicated; E86.0 Dehydration; D75.1 Secondary polycythemia; E78.2 Mixed hyperlipidemia; I11.0 Hypertensive heart disease with heart failure; I27.20 Pulmonary hypertension, unspecified; Z20.822 Contact with and (suspected) exposure to COVID-19; Z88.2 Allergy status to sulfonamides; Z88.6 Allergy status to analgesic agent; Z79.01 Long term (current) use of anticoagulants; Z79.899 Other long term (current) drug therapy
CPT/HCPCS: 0241U; 36415; 71045; 74177; 80048; 80053; 83735; 83880; 84132; 84443; 84484; 85025; 85610; 85730; 92960; 93005; 93306; 99285; J0283; J0330; J1650; J2370; J3475; Q9957; Q9967

== ENCOUNTER → 2022-09-18 14:31 | Outpatient (BNVA) | payer MEDICARE, SELFPAY | PROVIDERS: PCP Family Medicine; Referring Provider Family Medicine; Visit Provider Internal Medicine Cardiovascular Disease | DX: I48.0 Paroxysmal atrial fibrillation (principal); I50.32 Chronic diastolic (congestive) heart failure; R06.00 Dyspnea, unspecified | CPT/HCPCS: 93005; 99212 ==

== ENCOUNTER 2022-09-26 16:47 | Inpatient (IN) | payer MEDICARE, SELFPAY ==
--- NOTE | ~2022-09-26 | XR_ITS ---
EXAMINATION: XR CHEST CLINICAL INFORMATION: Palpitations COMPARISON: Prior x-rays latest 11/27/2022 TECHNIQUE: 2 views of the chest were obtained. FINDINGS: Rotated positioning. Stable heart size. There is scarring/atelectasis in the right middle lobe and the left lower lung, appearing similar to the prior radiographs, and also seen the prior chest CT 12/25/2021. No new focal consolidation is seen. No effusion, edema or pneumothorax. Thoracic spine degeneration. XR/XR chest 2V IMPRESSION: Stable atelectasis/scarring in the right middle lobe and left lung base. No new focal consolidation. No acute process is seen as compared to the prior study.
--- NOTE | 2022-09-26 16:53 | ED.ARRPALP ---
HPI - Arrhythmia/Palpitations General Chief Complaint: Arrhythmia/Palpitations <MYKEL Macias - Last Filed: 09/26/22 17:03> Stated Complaint: Palpitations <MYKEL Macias - Last Filed: 09/26/22 17:03> Time Seen by Provider: 09/26/22 18:19 <MYKEL Macias - Last Filed: 09/26/22 17:03> Source: patient, family (Daughter) and RN notes reviewed <Lino Parker - Last Filed: 09/27/22 00:02> Mode of arrival: ambulatory <Lino Parker - Last Filed: 09/27/22 00:02> Limitations: no limitations <Lino Parker - Last Filed: 09/27/22 00:02> History of Present Illness HPI narrative: 77-year-old female with past medical history significant for paroxysmal AFib maintained on Xarelto, congestive heart failure with preserved ejection fraction, chronic cough, pulmonary hypertension, hypertension presents for evaluation of heart palpitations. The patient reports around 1:00 p.m. today, about 5 hours prior to my initial evaluation the patient ?felt like my heart went into AFib again. ? She states that she was seated watching TV and eating at a time without any exertion. The patient endorses chronic shortness of breath is no worse than baseline She denies any chest pain. The patient has been following closely with her electrical maintenance mechanic Dr. Brennan for her AFib. About 3 weeks ago she had 3 attempted electrical cardioversions all of which failed to sustain a sinus rhythm. Her flecainide was increased to 150 mg b.i.d. in addition to Cardizem 120 mg daily and carvedilol 25 mg b.i.d. The patient reports that she has had many discussions a electrical maintenance mechanic and is interested in having a pacemaker implanted <Lino Parker - Last Filed: 09/27/22 00:02> Related Data Home Medications: Home Medications Medication Instructions Recorded Confirmed gabapentin 300 mg capsule 600 mg PO BEDTIME 05/16/20 09/26/22 montelukast 10 mg tablet 10 mg PO BEDTIME 05/16/20 09/26/22 fexofenadine 180 mg tablet 180 mg PO DAILY 06/21/21 09/26/22 ([facility]) cholecalciferol (vitamin D3) 10 10 mcg PO DAILY 07/28/21 09/26/22 mcg (400 unit) capsule (Vitamin D3) coenzyme Q10 100 mg tablet 100 mg PO DAILY 07/28/21 09/26/22 magnesium 250 mg tablet 250 mg PO DAILY 07/28/21 09/26/22 multivitamin 1 tab PO DAILY 07/28/21 09/26/22 losartan 100 mg tablet 100 mg PO DAILY 02/04/22 09/26/22 meloxicam 15 mg tablet 15 mg PO DAILY 05/06/22 09/26/22 turmeric 400 mg capsule 400 mg PO DAILY 05/06/22 09/26/22 vitamin E (dl, acetate) 180 mg 180 mg PO DAILY 07/28/22 09/26/22 (400 unit) capsule rivaroxaban 20 mg tablet (Xarelto) 20 mg PO DAILY@1700 09/10/22 09/26/22 ascorbic acid (vitamin C) 500 mg 500 mg PO DAILY 09/26/22 09/26/22 tablet furosemide 40 mg tablet 40 mg PO DAILY 09/26/22 09/26/22 omeprazole 40 mg capsule,delayed 40 mg PO DAILY 09/26/22 09/26/22 release Previous Rx's Medication Instructions Recorded atorvastatin 40 mg tablet 40 mg PO DAILY 90 days #90 tabs 03/13/22 empagliflozin 10 mg tablet 10 mg PO DAILY #30 tabs 03/13/22 (Jardiance) diltiazem HCl 120 mg 120 mg PO DAILY #30 caps 08/26/22 capsule,extended release 24 hr (Cardizem CD) flecainide 50 mg tablet 150 mg PO BID #60 tabs 09/13/22 <MYKEL Macias - Last Filed: 09/26/22 17:03> Allergies/Adverse Reactions: Allergies Allergy/AdvReac Type Severity Reaction Status Date / Time aspirin [ASPIRIN] Allergy Unknown RASH Verified 09/26/22 17:01 Sulfa (Sulfonamide Allergy Unknown RASH Verified 09/26/22 17:01 Antibiotics) [SULFA (SULFONAMIDE ANTIBIOTICS)] adhesives AdvReac Unknown Uncoded 09/26/22 17:01 <MYKEL Macias - Last Filed: 09/26/22 17:03> Review of Systems Constitutional: Constitutional: Reports as per HPI, Denies chills, Denies fatigue and Denies fever(s) <Lino Anayay - Last Filed: 09/27/22 00:02> ENT: Denies sore throat <Lino OCalifornia - Last Filed: 09/27/22 00:02> Cardiovascular: Cardiovascular: Denies chest pain, Reports palpitations and Reports dyspnea on exertion <Lino O[place] - Last Filed: 09/27/22 00:02> Respiratory: Respiratory: Reports cough and Reports dyspnea on exertion <Lino O[place] - Last Filed: 09/27/22 00:02> Gastrointestinal: Gastrointestinal: Reports abdominal pain, Denies constipation, Reports dyspepsia, Denies diarrhea, Reports nausea, Reports vomiting and Denies hematemesis <Lino O[place] - Last Filed: 09/27/22 00:02> Genitourinary: Genitourinary: Denies dysuria <Lino O[place] - Last Filed: 09/27/22 00:02> Musculoskeletal: Musculoskeletal: Denies back pain, Denies myalgias and Denies arthralgias <Linoaníbal Anayay - Last Filed: 09/27/22 00:02> Endocrine: Endocrine: Denies fatigue and Reports palpitations <Lino LiCresencio - Last Filed: 09/27/22 00:02> [facility] Past Medical History Attestation statement: The following information was validated with the patient. <Lino Parker Last Filed: 09/27/22 00:02> Source: old records reviewed, obtained from family and nursing notes reviewed <Lino Parker - Last Filed: 09/27/22 00:02> Medical History: Medical History Atrial fibrillation with RVR Cardiomyopathy Chronic heart failure with preserved ejection fraction (HFpEF) Diastolic dysfunction History of cardiomyopathy History of cardioversion HTN (hypertension) NSTEMI (non-ST elevated myocardial infarction) Paroxysmal atrial fibrillation Paroxysmal atrial fibrillation Pulmonary hypertension Pulmonary hypertension <MYKEL Macias - Last Filed: 09/26/22 17:03> Surgical History: Surgical History History of back surgery Hx of cardiac cath Hx of hand surgery Hx of total hip arthroplasty S/P cardiac catheterization <MYKEL Macias - Last Filed: 09/26/22 17:03> Family History Family History: Family History Father Cancer Mother Stroke Brother Atrial fibrillation Sister Cardiovascular disease Atrial fibrillation <MYKEL Macias - Last Filed: 09/26/22 17:03> Social History Social History: Social History Household Members: None Housing: House Do you presently have visiting nurse or other home services: No Alcohol intake: never Patient Tobacco Use Status: Never used Tobacco Smoked in Last 30 Days: No Second Hand Smoke Exposure: No Use of substances other than those prescribed or required for medical reasons: No Any prior treatment program specific to substance use: No Advance Directives: No Advance Directives Information Provided: Yes service: No Current occupational status: retired <MYKEL Macias - Last Filed: 09/26/22 17:03> Physical Exam Vital Signs: Vital Signs: Last Vital Signs Temp 98.1 F 09/26/22 16:54 Pulse 94 09/26/22 21:35 Resp 09/26/22 21:35 BP 164/97 H 09/26/22 21:35 Pulse Ox 93 09/26/22 21:35 O2 Del Method 09/26/22 21:35 BMI result Body Mass Index 29.9 <MYKEL Macias - Last Filed: 09/26/22 17:03> Vital Signs: Last Vital Signs Temp 98.1 F 09/26/22 16:54 Pulse 94 09/26/22 21:35 Resp 16 09/26/22 21:35 BP 164/97 H 09/26/22 21:35 Pulse Ox 93 09/26/22 21:35 O2 Del Method 09/26/22 21:35 BMI result Body Mass Index 29.9 <Lino Parker - Last Filed: 09/27/22 00:02> Const: General: cooperative, healthy appearing, comfortable, no acute distress, alert, awake and Physically active <Lino Parker - Last Filed: 09/27/22 00:02> Nutritional Appearance: thin <Lino Barreto[place] - Last Filed: 09/27/22 00:02> Orientation/consciousness: patient oriented x3 <Lino LiCresencio - Last Filed: 09/27/22 00:02> Limitations: no limitations <Lino OCresencio - Last Filed: 09/27/22 00:02> HEENT: Head: Yes normocephalic and Yes atraumatic <Lino OCresencio - Last Filed: 09/27/22 00:02> Neck: Neck: Yes normal visual inspection, Yes full ROM, No no meningeal signs, Yes supple and No lymphadenopathy <Lino O Last Filed: 09/27/22 00:02> Chest: Chest palpation & inspection: normal inspection of the chest, normal palpation of entire chest wall and no crepitus <Lino O Last Filed: 09/27/22 00:02> Resp: Effort & Inspection: normal respiratory effort and able to speak in complete sentences <Lino OCresencio - Last Filed: 09/27/22 00:02> Auscultation: clear to auscultation bilaterally <Lino O Last Filed: 09/27/22 00:02> Cardio: Other: Rate is irregularly irregular <Lino O[place] - Last Filed: 09/27/22 00:02> Rate: abnormal rate and tachycardic <Lino O Last Filed: 09/27/22 00:02> Rhythm: abnormal rhythm <Lino OCresencio - Last Filed: 09/27/22 00:02> GI: Palpation (GI): Soft to palpation, nontender and no guarding <Lino OCalifornia - Last Filed: 09/27/22 00:02> Auscultation: normoactive bowel sounds <Lino OCalifornia - Last Filed: 09/27/22 00:02> Skin: General skin exam: no rashes or lesions noted <Lino OCalifornia - Last Filed: 09/27/22 00:02> Neuro: General: patient oriented x3 and No no meningeal signs <Lino OCresencio - Last Filed: 09/27/22 00:02> Course Course Course Narrative: RME-17PM 77-year-old female with a history of atrial fibrillation currently on Xarelto who is presenting today with palpitations since 12:30pm today. Reports that she was recently seen here and admitted and had 3 failed cardioversion. She is currently on flecainide although not improving her palpitations. She denies any other symptoms complaints or concerns at this time. Plan: Labs, EKG, chest x-ray. Patient will be sent back to waiting room to be evaluated in the ED. <MYKEL Macias - Last Filed: 09/26/22 17:03> Medications Administered Generic Name Dose Route Start Last Admin Trade Name Freq PRN Reason Stop Dose Admin Enoxaparin Sodium 80 mg 09/26/22 21:00 09/26/22 21:25 Enoxaparin Sodium 80 Mg/0.8 Ml Syringe 1 mg/kg (80 mg) 80 mg SUBCUT Administration BID ROSENDA Flecainide Acetate 150 mg 09/26/22 21:00 09/26/22 21:35 Flecainide Acetate 50 Mg Tablet PO 150 mg BID ROSENDA Administration Gabapentin 600 mg 09/26/22 21:00 09/26/22 21:25 Gabapentin 300 Mg Capsule PO 600 mg BEDTIME ROSENDA Administration Montelukast Sodium 10 mg 09/26/22 21:00 09/26/22 21:25 Montelukast Sodium 10 Mg Tablet PO 10 mg BEDTIME ROSENDA Administration Sodium Chloride 3 ml 09/27/22 00:00 09/26/22 23:46 0.9 % Sodium Chloride Flush 3 Ml Syringe IVFLUSH 3 ml QSHIFT ROSENDA Administration Discontinued Medications Generic Name Dose Route Start Last Admin Trade Name Freq PRN Reason Stop Dose Admin Diltiazem HCl 20 mg 09/26/22 18:45 09/26/22 19:17 Diltiazem Hcl 50 Mg/10 Ml Vial IVPUSH 09/26/22 18:46 20 mg STAT STA Administration <MYKEL Macias - Last Filed: 09/26/22 17:03> Medications Administered Generic Name Dose Route Start Last Admin Trade Name Freq PRN Reason Stop Dose Admin Enoxaparin Sodium 80 mg 09/26/22 21:00 09/26/22 21:25 Enoxaparin Sodium 80 Mg/0.8 Ml Syringe 1 mg/kg (80 mg) 80 mg SUBCUT Administration BID ROSENDA Flecainide Acetate 150 mg 09/26/22 21:00 09/26/22 21:35 Flecainide Acetate 50 Mg Tablet PO 150 mg BID ROSENDA Administration Gabapentin 600 mg 09/26/22 21:00 09/26/22 21:25 Gabapentin 300 Mg Capsule PO 600 mg BEDTIME ROSENDA Administration Montelukast Sodium 10 mg 09/26/22 21:00 09/26/22 21:25 Montelukast Sodium 10 Mg Tablet PO 10 mg BEDTIME ROSENDA Administration Sodium Chloride 3 ml 09/27/22 00:00 09/26/22 23:46 0.9 % Sodium Chloride Flush 3 Ml Syringe IVFLUSH 3 ml QSHIFT ROSENDA Administration Discontinued Medications Generic Name Dose Route Start Last Admin Trade Name Padmaja PRN Reason Stop Dose Admin Diltiazem HCl 20 mg 09/26/22 18:45 09/26/22 19:17 Diltiazem Hcl 50 Mg/10 Ml Vial IVPUSH 09/26/22 18:46 20 mg STAT STA Administration <Lino Parker - Last Filed: 09/27/22 00:02> Medical Decision Making Medical Decision Making MDM Narrative: 77-year-old female with past medical history significant for paroxysmal AFib maintained on rate control and antiarrhythmic agents. The patient is followed closely by Cardiology. She is also on Xarelto for anticoagulation. The patient is noted to be tachycardic with RVR as high as 130 and hypertensive who as high as 204/100. The patient has no complaints at rest and is very stable. I discussed the patient's case with Dr. Allison knows the patient well from her recent cardioversion times. He recommends be controlled the patient and admitting to the medical team so that the patient can have a cardiology consultation in the morning. We will adjust the patient's heart rate and hypertension with Cardizem 20 mg IV <Lino Parker - Last Filed: 09/27/22 00:02> Differential Diagnosis Differential Diagnoses: The differential diagnosis associated with the presentation includes <Lino Parker - Last Filed: 09/27/22 00:02> Atrial fibrillation Cardiac review Metabolic abnormality Electrolyte disturbance ACS less likely Palpitations <Lino Parker - Last Filed: 09/27/22 00:02> Consult Healthcare Provider Management of the patient was discussed with: Design Manager (Keegan) <Lino Parker - Last Filed: 09/27/22 00:02> Lab Data MDM Lab Attestation statement: I reviewed the patient's lab results. <Lino Parker - Last Filed: 09/27/22 00:02> Result Diagrams: 09/26/22 17:29 09/26/22 17:29 <MYKEL Macias - Last Filed: 09/26/22 17:03> Labs: Lab Results 09/26/22 09/26/22 09/26/22 Range/Units 17:29 17:29 17:29 WBC 7.4 (4.8-10.8) X10*3/uL RBC 4.87 (4.20-5.50) X10*6/uL Hgb 16.0 (12.0-16.0) g/dl Hct 47.7 H (37.0-47.0) % MCV 97.9 (80.0-98.0) fL MCH 32.9 (27.0-33.0) pg MCHC 33.5 (31.0-35.0) g/dl RDW 12.6 (11.0-16.0) % Plt Count 257 D (160-400) X10*3/uL MPV 8.9 L (9.4-12.3) fL Immature Gran % (Auto) 0.4 (0.0-0.4) % Neut % (Auto) 73.0 (45-73) % Lymph % (Auto) 14.2 L (20-40) % [place] % (Auto) 10.2 (2-11) % Eos % (Auto) 1.5 (0-4) % Baso % (Auto) 0.7 (0-2) % Lymph # (Auto) 1.1 L (1.2-4.9) X10*3/uL [place] # (Auto) 0.8 (0.1-1.2) X10*3/uL Eos # (Auto) 0.1 (0.0-0.4) X10*3/uL Baso # (Auto) 0.1 (0.0-0.2) X10*3/uL Abs Immat Gran (auto) 0.03 (0.00-0.03) X10*3/uL Absolute Neuts (auto) 5.4 (2.0-8.3) x10*3/uL Absolute Nucleated RBC 0.000 (0.0-0.012) X10*3/uL Nucleated RBC % (auto) 0.0 (0.0-0.2) /100WBC PT 12.3 (10.0-13.1) SEC INR 1.1 (0.9-1.1) Sodium 145 (135-145) mmol/L Potassium 4.3 D (3.3-5.1) mmol/L Chloride 106 (96-108) mmol/L Carbon Dioxide 27 (22-29) mmol/L Anion Gap 16 (12-20) BUN 24 H (9-16) mg/dL Creatinine 0.81 (0.5-1.4) mg/dL Estim Creat Clear Calc 60.4 Estimated GFR > 60 Random Glucose 112 (60-115) mg/dL Calcium 9.5 D (8.4-10.2) mg/dL Magnesium 2.3 (1.6-2.6) mg/dL Total Bilirubin 1.1 H (0.0-1.0) mg/dL AST 23 (5-31) U/L ALT 28 (0-31) U/L Alkaline Phosphatase 99 (39-117) U/L Troponin I High Sens (<3.5-17.0) ng/L Total Protein 7.4 (6.5-8.0) g/dL Albumin 4.4 (3.5-5.0) g/dL TSH 0.77 (0.32-4.0) uIU/mL Influenza Type A (PCR) (Negative) Influenza Type B (PCR) (Negative) RSV RNA Qual (PCR) (Negative) SARS-CoV-2 RNA (RT-PCR) (Negative) 09/26/22 09/26/22 09/26/22 Range/Units 17:29 17:29 17:29 WBC (4.8-10.8) X10*3/uL RBC (4.20-5.50) X10*6/uL Hgb (12.0-16.0) g/dl Hct (37.0-47.0) % MCV (80.0-98.0) fL MCH (27.0-33.0) pg MCHC (31.0-35.0) g/dl RDW (11.0-16.0) % Plt Count (160-400) X10*3/uL MPV (9.4-12.3) fL Immature Gran % (Auto) (0.0-0.4) % Neut % (Auto) (45-73) % Lymph % (Auto) (20-40) % [place] % (Auto) (2-11) % Eos % (Auto) (0-4) % Baso % (Auto) (0-2) % Lymph # (Auto) (1.2-4.9) X10*3/uL [place] # (Auto) (0.1-1.2) X10*3/uL Eos # (Auto) (0.0-0.4) X10*3/uL Baso # (Auto) (0.0-0.2) X10*3/uL Abs Immat Gran (auto) (0.00-0.03) X10*3/uL Absolute Neuts (auto) (2.0-8.3) x10*3/uL Absolute Nucleated RBC (0.0-0.012) X10*3/uL Nucleated RBC % (auto) (0.0-0.2) /100WBC PT (10.0-13.1) SEC INR (0.9-1.1) Sodium (135-145) mmol/L Potassium (3.3-5.1) mmol/L Chloride (96-108) mmol/L Carbon Dioxide (22-29) mmol/L Anion Gap (12-20) BUN (9-16) mg/dL Creatinine (0.5-1.4) mg/dL Estim Creat Clear Calc Estimated GFR Random Glucose (60-115) mg/dL Calcium (8.4-10.2) mg/dL Magnesium (1.6-2.6) mg/dL Total Bilirubin (0.0-1.0) mg/dL AST (5-31) U/L ALT (0-31) U/L Alkaline Phosphatase (39-117) U/L Troponin I High Sens 10.6 D (<3.5-17.0) ng/L Total Protein (6.5-8.0) g/dL Albumin (3.5-5.0) g/dL TSH Cancelled (0.32-4.0) uIU/mL Influenza Type A (PCR) NEGATIVE (Negative) Influenza Type B (PCR) NEGATIVE (Negative) RSV RNA Qual (PCR) NEGATIVE (Negative) SARS-CoV-2 RNA (RT-PCR) NEGATIVE (Negative) <MYKEL Macias - Last Filed: 09/26/22 17:03> Lab Results 09/26/22 09/26/22 09/26/22 Range/Units 17:29 17:29 17:29 WBC 7.4 (4.8-10.8) X10*3/uL RBC 4.87 (4.20-5.50) X10*6/uL Hgb 16.0 (12.0-16.0) g/dl Hct 47.7 H (37.0-47.0) % MCV 97.9 (80.0-98.0) fL MCH 32.9 (27.0-33.0) pg MCHC 33.5 (31.0-35.0) g/dl RDW 12.6 (11.0-16.0) % Plt Count 257 D (160-400) X10*3/uL MPV 8.9 L (9.4-12.3) fL Immature Gran % (Auto) 0.4 (0.0-0.4) % Neut % (Auto) 73.0 (45-73) % Lymph % (Auto) 14.2 L (20-40) % [place] % (Auto) 10.2 (2-11) % Eos % (Auto) 1.5 (0-4) % Baso % (Auto) 0.7 (0-2) % Lymph # (Auto) 1.1 L (1.2-4.9) X10*3/uL [place] # (Auto) 0.8 (0.1-1.2) X10*3/uL Eos # (Auto) 0.1 (0.0-0.4) X10*3/uL Baso # (Auto) 0.1 (0.0-0.2) X10*3/uL Abs Immat Gran (auto) 0.03 (0.00-0.03) X10*3/uL Absolute Neuts (auto) 5.4 (2.0-8.3) x10*3/uL Absolute Nucleated RBC 0.000 (0.0-0.012) X10*3/uL Nucleated RBC % (auto) 0.0 (0.0-0.2) /100WBC PT 12.3 (10.0-13.1) SEC INR 1.1 (0.9-1.1) Sodium 145 (135-145) mmol/L Potassium 4.3 D (3.3-5.1) mmol/L Chloride 106 (96-108) mmol/L Carbon Dioxide 27 (22-29) mmol/L Anion Gap 16 (12-20) BUN 24 H (9-16) mg/dL Creatinine 0.81 (0.5-1.4) mg/dL Estim Creat Clear Calc 60.4 Estimated GFR > 60 Random Glucose 112 (60-115) mg/dL Calcium 9.5 D (8.4-10.2) mg/dL Magnesium 2.3 (1.6-2.6) mg/dL Total Bilirubin 1.1 H (0.0-1.0) mg/dL AST 23 (5-31) U/L ALT 28 (0-31) U/L Alkaline Phosphatase 99 (39-117) U/L Troponin I High Sens (<3.5-17.0) ng/L Total Protein 7.4 (6.5-8.0) g/dL Albumin 4.4 (3.5-5.0) g/dL TSH 0.77 (0.32-4.0) uIU/mL Influenza Type A (PCR) (Negative) Influenza Type B (PCR) (Negative) RSV RNA Qual (PCR) (Negative) SARS-CoV-2 RNA (RT-PCR) (Negative) 09/26/22 09/26/22 09/26/22 Range/Units 17:29 17:29 17:29 WBC (4.8-10.8) X10*3/uL RBC (4.20-5.50) X10*6/uL Hgb (12.0-16.0) g/dl Hct (37.0-47.0) % MCV (80.0-98.0) fL MCH (27.0-33.0) pg MCHC (31.0-35.0) g/dl RDW (11.0-16.0) % Plt Count (160-400) X10*3/uL MPV (9.4-12.3) fL Immature Gran % (Auto) (0.0-0.4) % Neut % (Auto) (45-73) % Lymph % (Auto) (20-40) % [place] % (Auto) (2-11) % Eos % (Auto) (0-4) % Baso % (Auto) (0-2) % Lymph # (Auto) (1.2-4.9) X10*3/uL [place] # (Auto) (0.1-1.2) X10*3/uL Eos # (Auto) (0.0-0.4) X10*3/uL Baso # (Auto) (0.0-0.2) X10*3/uL Abs Immat Gran (auto) (0.00-0.03) X10*3/uL Absolute Neuts (auto) (2.0-8.3) x10*3/uL Absolute Nucleated RBC (0.0-0.012) X10*3/uL Nucleated RBC % (auto) (0.0-0.2) /100WBC PT (10.0-13.1) SEC INR (0.9-1.1) Sodium (135-145) mmol/L Potassium (3.3-5.1) mmol/L Chloride (96-108) mmol/L Carbon Dioxide (22-29) mmol/L Anion Gap (12-20) BUN (9-16) mg/dL Creatinine (0.5-1.4) mg/dL Estim Creat Clear Calc Estimated GFR Random Glucose (60-115) mg/dL Calcium (8.4-10.2) mg/dL Magnesium (1.6-2.6) mg/dL Total Bilirubin (0.0-1.0) mg/dL AST (5-31) U/L ALT (0-31) U/L Alkaline Phosphatase (39-117) U/L Troponin I High Sens 10.6 D (<3.5-17.0) ng/L Total Protein (6.5-8.0) g/dL Albumin (3.5-5.0) g/dL TSH Cancelled (0.32-4.0) uIU/mL Influenza Type A (PCR) NEGATIVE (Negative) Influenza Type B (PCR) NEGATIVE (Negative) RSV RNA Qual (PCR) NEGATIVE (Negative) SARS-CoV-2 RNA (RT-PCR) NEGATIVE (Negative) <Lino Parker - Last Filed: 09/27/22 00:02> Independent Interpretation I performed an independent interpretation of an: EKG (Atrial fibrillation with RVR, no ischemic changes) and Plain X-Ray (Consistent with Radiology interpretation of atelectasis without focal infiltrate) <Lino Parker - Last Filed: 09/27/22 00:02> Radiology Impression Discussion of test interpretation with radiology: I have reviewed the radiologist's reading. <Lino Parker - Last Filed: 09/27/22 00:02> Discharge Plan Discharge Clinical Impression: Atrial fibrillation with rapid ventricular response <MYKEL Macias - Last Filed: 09/26/22 17:03> Patient Disposition: Admitted As Inpatient <MYKEL Macias - Last Filed: 09/26/22 17:03>
[2022-09-26 16:54] VITALS: BP 172/100; PULSE 114; RESP 18; TEMP 36.7; O2SAT 100; BMI 29.9
--- NOTE | 2022-09-26 16:58 | ECG_ITS ---
Test Reason : palpations Blood Pressure : / mmHG Vent. Rate : 117 BPM Atrial Rate : 000 BPM P-R Int : 000 ms QRS Dur : 104 ms QT Int : 358 ms P-R-T Axes : 000 019 032 degrees QTc Int : 499 ms Atrial fibrillation with rapid ventricular response Minimal voltage criteria for LVH, may be normal variant ( [place] product ) Nonspecific ST abnormality Abnormal ECG When compared with ECG of 12-SEP-2022 09:58, Previous ECG has undetermined rhythm, needs review T wave inversion no longer evident in Inferior leads T wave inversion no longer evident in Anterolateral leads Referred By: Shruthi Hopper Electronically Signed By:Rickie Allison
[2022-09-26 17:35] LABS: MANUAL DIFF FLAG NO
[2022-09-26 17:43] LABS: INTERNATIONAL NORM RATIO 1.1 (0.9-1.1); Prothrombin Time 12.3 SEC (10.0-13.1)
[2022-09-26 17:44] VITALS: BP 210/109; PULSE 114; RESP 18; O2SAT 95
[2022-09-26 17:56] LABS: Alanine Aminotransferase 28 U/L (0-31); Albumin Level 4.4 g/dL (3.5-5.0); Alkaline Phosphatase 99 U/L (39-117); Anion Gap 16 (12-20); Aspartate Amino Transferase 23 U/L (5-31); Bilirubin Total 1.1 mg/dL (0.0-1.0); Blood Urea Nitrogen 24 mg/dL (9-16); Calcium 9.5 mg/dL (8.4-10.2); Carbon Dioxide 27 mmol/L (22-29); Chloride 106 mmol/L (96-108); Creatinine Clr Calc Pharmacy 60.4; Estimated Glomerular Filt Rate > 60; Glucose Random 112 mg/dL (60-115); Magnesium 2.3 mg/dL (1.6-2.6); Potassium 4.3 mmol/L (3.3-5.1); Sodium 145 mmol/L (135-145); Total Protein 7.4 g/dL (6.5-8.0)
[2022-09-26 18:03] LABS: Troponin-I High Sensitivity 10.6 ng/L (<3.5-17.0)
[2022-09-26 18:10] LABS: Basophils Absolute Auto 0.1 X10*3/uL (0.0-0.2); Basophils Percent Auto 0.7 % (0-2); Eosinophils Absolute Auto 0.1 X10*3/uL (0.0-0.4); Eosinophils Percent Auto 1.5 % (0-4); Hematocrit 47.7 % (37.0-47.0); Imm Gran Abs Auto 0.03 X10*3/uL (0.00-0.03); Imm Gran Pct Auto 0.4 % (0.0-0.4); Lymphocytes Absolute Auto 1.1 X10*3/uL (1.2-4.9); Lymphocytes Percent Auto 14.2 % (20-40); Mean Corpuscular HGB Conc 33.5 g/dl (31.0-35.0); Mean Corpuscular Hemoglobin 32.9 pg (27.0-33.0); Mean Corpuscular Volume 97.9 fL (80.0-98.0); Mean Platelet Volume 8.9 fL (9.4-12.3); Monocytes Absolute Auto 0.8 X10*3/uL (0.1-1.2); Monocytes Percent Auto 10.2 % (2-11); Neutrophils Absolute Auto 5.4 x10*3/uL (2.0-8.3); Platelet Count 257 X10*3/uL (160-400); Red Blood Count 4.87 X10*6/uL (4.20-5.50); Red Cell Distribution Width 12.6 % (11.0-16.0); White Blood Count 7.4 X10*3/uL (4.8-10.8)
[2022-09-26 18:17] LABS: Influenza A PCR NEGATIVE (Negative); Influenza B PCR NEGATIVE (Negative); Resp Syncy Virus RNA Qual PCR NEGATIVE (Negative); SARS COV2 PCR INHOUSE NEGATIVE (Negative)
[2022-09-26 19:16] VITALS: BP 193/114; PULSE 108; RESP 14; O2SAT 93
[2022-09-26] MEDS: dilTIAZem HCL 50 MG/10 ML VIAL 20 MG IVPUSH (19:17)
--- NOTE | 2022-09-26 19:23 | PHA.MEDREC ---
MED REC COMPLETE, NO ISSUES Pharmacy Consult ? Medication Reconciliation Pharmacy has completed the medication reconciliation.
[2022-09-26 19:31] VITALS: BP 168/98; PULSE 105; RESP 16; O2SAT 93
--- NOTE | 2022-09-26 19:44 | P.HPHOSP_ITS ---
History of Present Illness Date of Service: 09/26/22 Chief Complaint: Palpitations Len is a 77-year-old female with pertinent history of congestive heart failure with preserved ejection fraction, paroxysmal atrial fibrillation on Xarelto, essential hypertension, pulmonary hypertension who presents to the [facility] department for evaluation of palpitations. Patient states she has had multiple cardioversions and ablations in the past. She saw Dr. Brennan on 09/18 and went over her options with him. Patient was recently hospitalized for atrial fibrillation when flecainide was increased to 150 mg b.i.d.. Patient cannot tolerate amiodarone due to possible pulmonary toxicity with decreased diffusion capacity. States she discussed the possibility of pacemaker and is now ready to undergo pacemaker placement if needed. Patient started to developed palpitations on the day of presentation. It was persistent and without any relieving factors. She denies fever, chills, chest discomfort, abdominal pain, changes in urinary bowel habits. States he has chronic dyspnea on exertion. In the emergency department, patient was found to be in AFib with RVR. Cardiology was consulted who requested admission. Review of Systems Constitutional: Constitutional: Reports no additional constitutional complain ts Cardiovascular: Cardiovascular: Reports palpitations Respiratory: Respiratory: Reports no additional respiratory complaints Gastrointestinal: Gastrointestinal: Reports no additional gastrointestinal complaints Genitourinary: Genitourinary: Reports no additional female genitourinary complaints Musculoskeletal: Musculoskeletal: Reports no additional musculoskeletal complaints Endocrine: Endocrine: Reports palpitations [facility] Medical History Atrial fibrillation with RVR Cardiomyopathy Chronic heart failure with preserved ejection fraction (HFpEF) Diastolic dysfunction History of cardiomyopathy History of cardioversion HTN (hypertension) NSTEMI (non-ST elevated myocardial infarction) Paroxysmal atrial fibrillation Paroxysmal atrial fibrillation Pulmonary hypertension Pulmonary hypertension Family History Father Cancer Mother Stroke Brother Atrial fibrillation Sister Cardiovascular disease Atrial fibrillation Surgical History History of back surgery Hx of cardiac cath Hx of hand surgery Hx of total hip arthroplasty S/P cardiac catheterization Social History Household Members: None Housing: House Do you presently have visiting nurse or other home services: No Alcohol intake: never Patient Tobacco Use Status: Never used Tobacco Smoked in Last 30 Days: No Second Hand Smoke Exposure: No Use of substances other than those prescribed or required for medical reasons: No Any prior treatment program specific to substance use: No Advance Directives: No Advance Directives Information Provided: Yes service: No Current occupational status: retired Meds Allergies Allergy/AdvReac Type Severity Reaction Status Date / Time aspirin [ASPIRIN] Allergy Unknown RASH Verified 09/26/22 17:01 Sulfa (Sulfonamide Allergy Unknown RASH Verified 09/26/22 17:01 Antibiotics) [SULFA (SULFONAMIDE ANTIBIOTICS)] adhesives AdvReac Unknown Uncoded 09/26/22 17:01 Active Medications: Current Medications Pharmacy Consult (Consult Rx Perform Med Rec) 1 each MISCELLANE ONCE PRN PRN Reason: Consult order Home Medications Medication Instructions Recorded Confirmed Last Taken Type gabapentin 300 mg capsule 600 mg PO BEDTIME 05/16/20 09/26/22 09/25/22 History montelukast 10 mg tablet 10 mg PO BEDTIME 05/16/20 09/26/22 09/25/22 History fexofenadine 180 mg tablet 180 mg PO DAILY 06/21/21 09/26/22 09/26/22 History (Shea Allergy) cholecalciferol (vitamin D3) 10 10 mcg PO DAILY 07/28/21 09/26/22 09/26/22 History mcg (400 unit) capsule (Vitamin D3) coenzyme Q10 100 mg tablet 100 mg PO DAILY 07/28/21 09/26/22 09/26/22 History magnesium 250 mg tablet 250 mg PO DAILY 07/28/21 09/26/22 09/26/22 History multivitamin 1 tab PO DAILY 07/28/21 09/26/22 09/26/22 History losartan 100 mg tablet 100 mg PO DAILY 02/04/22 09/26/22 09/26/22 History meloxicam 15 mg tablet 15 mg PO DAILY 05/06/22 09/26/22 09/26/22 History turmeric 400 mg capsule 400 mg PO DAILY 05/06/22 09/26/22 09/26/22 History vitamin E (dl, acetate) 180 mg 180 mg PO DAILY 12/19/22 02/17/23 02/17/23 History (400 unit) capsule rivaroxaban 20 mg tablet (Xarelto) 20 mg PO DAILY@1700 09/10/22 09/26/22 09/25/22 History ascorbic acid (vitamin C) 500 mg 500 mg PO DAILY 09/26/22 09/26/22 09/26/22 History tablet furosemide 40 mg tablet 40 mg PO DAILY 09/26/22 09/26/22 09/26/22 History omeprazole 40 mg capsule,delayed 40 mg PO DAILY 09/26/22 09/26/22 09/26/22 History release Physical Exam Vital Signs and Narrative: Vital Signs: Last Vital Signs Temp 98.1 F 09/26/22 16:54 Pulse 105 H 09/26/22 19:31 Resp 16 09/26/22 19:31 BP 168/98 H 09/26/22 19:31 Pulse Ox 93 09/26/22 19:31 O2 Del Method 09/26/22 19:31 BMI result Body Mass Index 29.9 Middle-aged female lying in bed in no distress Neck supple, no JVD Irregularly irregular, S1-S2 heard Regular breath sounds bilaterally, no wheezing or crackles appreciated Abdomen soft nontender, no guarding, no rigidity Patient is awake, alert and oriented to self, place, time and person ; no focal motor deficit Psych: Normal mood No pedal edema Results Labs 09/26/22 17:29 09/26/22 17:29 Labs: Laboratory Results - last 24 hr 09/26/22 09/26/22 09/26/22 17:29 17:29 17:29 MCV 97.9 MCH 32.9 MCHC 33.5 RDW 12.6 Plt Count 257 D MPV 8.9 L Immature Gran % (Auto) 0.4 Neut % (Auto) 73.0 Lymph % (Auto) 14.2 L [place] % (Auto) 10.2 Eos % (Auto) 1.5 Baso % (Auto) 0.7 Lymph # (Auto) 1.1 L [place] # (Auto) 0.8 Eos # (Auto) 0.1 Baso # (Auto) 0.1 Abs Immat Gran (auto) 0.03 Absolute Neuts (auto) 5.4 Absolute Nucleated RBC 0.000 Nucleated RBC % (auto) 0.0 PT 12.3 INR 1.1 Anion Gap 16 Estim Creat Clear Calc 60.4 Estimated GFR > 60 Random Glucose 112 Calcium 9.5 D Magnesium 2.3 Total Bilirubin 1.1 H AST 23 ALT 28 Alkaline Phosphatase 99 Troponin I High Sens Total Protein 7.4 Albumin 4.4 Influenza Type A (PCR) Influenza Type B (PCR) RSV RNA Qual (PCR) SARS-CoV-2 RNA (RT-PCR) 09/26/22 09/26/22 17:29 17:29 MCV MCH MCHC RDW Plt Count MPV Immature Gran % (Auto) Neut % (Auto) Lymph % (Auto) [place] % (Auto) Eos % (Auto) Baso % (Auto) Lymph # (Auto) [place] # (Auto) Eos # (Auto) Baso # (Auto) Abs Immat Gran (auto) Absolute Neuts (auto) Absolute Nucleated RBC Nucleated RBC % (auto) PT INR Anion Gap Estim Creat Clear Calc Estimated GFR Random Glucose Calcium Magnesium Total Bilirubin AST ALT Alkaline Phosphatase Troponin I High Sens 10.6 D Total Protein Albumin Influenza Type A (PCR) NEGATIVE Influenza Type B (PCR) NEGATIVE RSV RNA Qual (PCR) NEGATIVE SARS-CoV-2 RNA (RT-PCR) NEGATIVE Imaging Radiologist's Impressions: Impressions Chest X-Ray 09/26/22 17:13 IMPRESSION: Stable atelectasis/scarring in the right middle lobe and left lung base. No new focal consolidation. No acute process is seen as compared to the prior study. Assessment and Plan (1) Atrial fibrillation with rapid ventricular response: Status: Acute Plan This is a 77-year-old female with pertinent history of congestive heart failure with preserved ejection fraction, paroxysmal atrial fibrillation on Xarelto, essential hypertension, pulmonary hypertension who presents to the emergency department for evaluation of palpitations. #.? AFib with RVR -received IV diltiazem in the ER. Low threshold to initiate diltiazem drip. Will resume po diltiazem and flecainide. Obtain TSH and Consulting cardiology. Hold Xarelto and switch it to therapeutic Lovenox in case pacemaker placement is planned. #.? Congestive heart failure with preserved ejection fraction:? Currently compensated. Continue Lasix and empagliflozin #.? Essential hypertension:? Resume home p.o. antihypertensives #.? Moderate persistent asthma: Continue home inhalers #.? Mixed hyperlipidemia:? On statin #. Gastroesophageal reflux disease: On omeprazole DVT prophylaxis:? Therapeutic Lovenox Full code Cardiac diet Admit as inpatient and will require two night minimum hospital stay for symptomatic AFib with RVR Time Spent With Patient Time: Total time managing care of this patient today ____ minutes. Quality Stroke Does the patient have a stroke diagnosis?: No VTE Prior VTE?: No VTE Risk Level:: Medical - moderate - high VTE Device Contraindication: Treatment Not Indicated VTE Drug Contraindication: N/A - Med Ordered
[2022-09-26 20:27] LABS: Thyroid Stimulating Hormone 0.77 uIU/mL (0.32-4.0)
[2022-09-26] MEDS: Montelukast Sodium 10 MG TABLET PO (21:25)
[2022-09-26] MEDS: Gabapentin 300 MG CAPSULE 600 MG PO (21:25)
[2022-09-26] MEDS: Enoxaparin Sodium 80 MG/0.8 ML SYRINGE SUBCUT (21:25)
[2022-09-26 21:27] VITALS: BP 173/95; PULSE 101; RESP 20; O2SAT 93
[2022-09-26 21:35] VITALS: BP 164/97; PULSE 94; RESP 16; O2SAT 93
[2022-09-26] MEDS: Flecainide Acetate 50 MG TABLET 150 MG PO (21:35)
--- NOTE | 2022-09-26 21:43 | MHC.CM.PN ---
Addendum entered by Lavern Guevara 09/26/22 21:50: [place] [facility] [place] w [place] from 09/10-09/13/22 Original Note: IMM 09/26. CM met with admitted patient with bed assignment pending. States was here 2 weeks ago with rapid heart rate. Pt lives alone. Drives. Independent. 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 Has no DME/Services. [facility] HCP at MD office. PCP is Dr. Huff. HCP/daughter Lina Taylor ([phone] and HCP/daughter Lucretia Calix ([phone]). Pfizer x2/Boosters x2. D/C plan: Home without services. Family will transport home. CM will follow for d/c needs.
[2022-09-26] MEDS: 0.9 % Sodium Chloride Flush 3 ML SYRINGE IVFLUSH (23:46)
[2022-09-27] VITALS (8 sets, daily range): BP systolic 124–170; BP diastolic 56–98; PULSE 58–95; RESP 14–19; TEMP 36.1–37.4; O2SAT 90–94
--- NOTE | 2022-09-27 00:43 | PC.NURSE ---
Nurse to nurse report called to [facility] spoke to KATIE Koenig.
--- NOTE | 2022-09-27 02:07 | PC.NURSE ---
01:[address] Coles via [employer] text patient manual BP 164/98 patient stated she had not taken BP meds since , this RN asked MD if he wanted to order her BP Meds beofre 0900 dosage, stated No.
[2022-09-27 06:29] LABS: MANUAL DIFF FLAG NO
[2022-09-27 06:34] LABS: Basophils Absolute Auto 0.1 X10*3/uL (0.0-0.2); Basophils Percent Auto 0.8 % (0-2); Eosinophils Absolute Auto 0.1 X10*3/uL (0.0-0.4); Eosinophils Percent Auto 1.7 % (0-4); Hematocrit 45.6 % (37.0-47.0); Hemoglobin 15.3 g/dl (12.0-16.0); Imm Gran Abs Auto 0.02 X10*3/uL (0.00-0.03); Imm Gran Pct Auto 0.3 % (0.0-0.4); Lymphocytes Absolute Auto 1.4 X10*3/uL (1.2-4.9); Lymphocytes Percent Auto 18.4 % (20-40); Mean Corpuscular HGB Conc 33.6 g/dl (31.0-35.0); Mean Corpuscular Hemoglobin 32.5 pg (27.0-33.0); Mean Corpuscular Volume 96.8 fL (80.0-98.0); Mean Platelet Volume 8.8 fL (9.4-12.3); Monocytes Absolute Auto 0.8 X10*3/uL (0.1-1.2); Monocytes Percent Auto 10.4 % (2-11); Neutrophils Absolute Auto 5.3 x10*3/uL (2.0-8.3); Neutrophils Percent Auto 68.4 % (45-73); Platelet Count 221 X10*3/uL (160-400); Red Blood Count 4.71 X10*6/uL (4.20-5.50); Red Cell Distribution Width 12.5 % (11.0-16.0); White Blood Count 7.8 X10*3/uL (4.8-10.8)
[2022-09-27 06:52] LABS: Anion Gap 13 (12-20); Blood Urea Nitrogen 18 mg/dL (9-16); Calcium 8.9 mg/dL (8.4-10.2); Carbon Dioxide 23 mmol/L (22-29); Chloride 109 mmol/L (96-108); Creatinine Clr Calc Pharmacy 74.1; Estimated Glomerular Filt Rate > 60; Glucose Random 97 mg/dL (60-115); Potassium 3.7 mmol/L (3.3-5.1); Sodium 141 mmol/L (135-145)
[2022-09-27] MEDS: Flecainide Acetate 50 MG TABLET 150 MG PO ×2 (08:53→21:42)
[2022-09-27] MEDS: Furosemide 40 MG TABLET PO (08:53)
[2022-09-27] MEDS: 0.9 % Sodium Chloride Flush 3 ML SYRINGE IVFLUSH ×3 (08:53→21:49)
[2022-09-27] MEDS: Atorvastatin Calcium 40 MG TABLET PO (08:53)
[2022-09-27] MEDS: Vitamin E (Dl,Tocopheryl Acet) 180 MG (400 UNIT) CAPSULE PO (08:53)
[2022-09-27] MEDS: Empagliflozin 10 MG TABLET PO (08:53)
[2022-09-27] MEDS: Enoxaparin Sodium 80 MG/0.8 ML SYRINGE SUBCUT ×2 (08:53→21:46)
[2022-09-27] MEDS: Magnesium Oxide 400 MG TABLET 200 MG PO (08:54)
[2022-09-27] MEDS: Cholecalciferol (Vitamin D3) 10 MCG TABLET PO (08:54)
[2022-09-27] MEDS: Loratadine 10 MG TABLET PO (08:54)
[2022-09-27] MEDS: Ascorbic Acid 500 MG TABLET PO (08:54)
[2022-09-27] MEDS: Losartan Potassium 50 MG TABLET 100 MG PO (08:54)
[2022-09-27] MEDS: Multivitamin TABLET 1 TAB PO (08:54)
--- NOTE | 2022-09-27 09:47 | P.PNIM_ITS ---
Subjective Subjective Date of Service: 09/27/22 Interval History: converted to NSR this morning chronic dyspnea palpitations resolved had EP consult at [facility] last week and has decided to pursue AVN ablation with backup pacemaker Physical Exam Vital Signs: Vital Signs: Last Vital Signs Temp 98.0 F 09/27/22 08:00 Pulse 69 09/27/22 08:00 Resp 18 09/27/22 08:00 BP 170/76 H 09/27/22 08:00 Pulse Ox 94 09/27/22 08:00 O2 Del Method 09/27/22 08:00 BMI result Body Mass Index 29.9 Const: Other: Gen: in no acute distress HEENT: sclera anicteric, moist mucus membranes Neck: supple Lungs: clear to auscultation bilaterally Heart: regular rate and rhythm, no murmurs Abd: soft, non-tender, non-distended Ext: no edema Skin: warm/well-perfused Neuro: alert and oriented x3, no focal findings Psych: appropriate affect Objective Data Active Medications Acetaminophen (Acetaminophen 325 Mg Tablet) 650 mg PO Q6H PRN PRN Reason: Pain, Mild (Pain Scale 1-3) Ascorbic Acid (Ascorbic Acid 500 Mg Tablet) 500 mg PO DAILY [facility] Last Admin: 09/27/22 08:54 Dose: 500 mg Documented By: VINCE Atorvastatin Calcium (Atorvastatin Calcium 40 Mg Tablet) 40 mg PO DAILY [facility] Last Admin: 09/27/22 08:53 Dose: 40 mg Documented By: VINCE Diltiazem HCl (Diltiazem Hcl Cd 120 Mg Cap.Er.Deg) 120 mg PO DAILY [facility]; Protocol Last Admin: 09/27/22 08:56 Dose: Not Given Documented By: VINCE Non-Admin Reason: Patient Refused Empagliflozin (Empagliflozin 10 Mg Tablet) 10 mg PO DAILY [facility] Last Admin: 09/27/22 08:53 Dose: 10 mg Documented By: VINCE Enoxaparin Sodium (Enoxaparin Sodium 80 Mg/0.8 Ml Syringe) 80 mg 1 mg/kg (80 mg) SUBCUT BID [facility] Last Admin: 09/27/22 08:53 Dose: 80 mg Documented By: VINCE Flecainide Acetate (Flecainide Acetate 50 Mg Tablet) 150 mg PO BID [facility] Last Admin: 09/27/22 08:53 Dose: 150 mg Documented By: VINCE Furosemide (Furosemide 40 Mg Tablet) 40 mg PO DAILY [facility]; Protocol Last Admin: 09/27/22 08:53 Dose: 40 mg Documented By: VINCE Gabapentin (Gabapentin 300 Mg Capsule) 600 mg PO BEDTIME [facility] Last Admin: 09/26/22 21:25 Dose: 600 mg Documented By: NOLA Loratadine (Loratadine 10 Mg Tablet) 10 mg PO DAILY [facility] Last Admin: 09/27/22 08:54 Dose: 10 mg Documented By: VINCE Losartan Potassium (Losartan Potassium 50 Mg Tablet) 100 mg PO DAILY [facility]; Protocol Last Admin: 09/27/22 08:54 Dose: 100 mg Documented By: VINCE Magnesium Oxide (Magnesium Oxide 400 Mg Tablet) 200 mg PO DAILY [facility] Last Admin: 09/27/22 08:54 Dose: 200 mg Documented By: VINCE Melatonin (Melatonin 3 Mg Tablet) 6 mg PO BEDTIME PRN PRN Reason: Insomnia Montelukast Sodium (Montelukast Sodium 10 Mg Tablet) 10 mg PO BEDTIME [facility] Last Admin: 09/26/22 21:25 Dose: 10 mg Documented By: NOLA Multivitamins/Vitamin C (Multivitamin Tablet) 1 tab PO DAILY [facility] Last Admin: 09/27/22 08:54 Dose: 1 tab Documented By: VINCE Non-Formulary Medication (Meloxicam) 15 mg PO DAILY [facility] Omeprazole (Omeprazole 40 Mg Capsule.Dr) 40 mg PO DAILY@0630 [facility] Last Admin: 09/27/22 06:07 Dose: Not Given Documented By: OTILIO Non-Admin Reason: NPO Ondansetron HCl (Ondansetron Hcl 4 Mg/2 Ml Vial) 4 mg IVPUSH Q8H PRN PRN Reason: Nausea and Vomiting Pharmacy Consult (Consult Rx Perform Med Rec) 1 each MISCELLANE ONCE PRN PRN Reason: Consult order Sodium Chloride (0.9 % Sodium Chloride Flush 3 Ml Syringe) 3 ml IVFLUSH QSHIFT [facility] Last Admin: 09/27/22 08:53 Dose: 3 ml Documented By: VINCE Vitamin D (Cholecalciferol (Vitamin D3) 10 Mcg Tablet) 10 mcg PO DAILY [facility] Last Admin: 09/27/22 08:54 Dose: 10 mcg Documented By: VINCE Vitamin E (Vitamin E (Dl,Tocopheryl Acet) 180 Mg (400 Unit) Capsule) 180 mg PO DAILY [facility] Last Admin: 09/27/22 08:53 Dose: 180 mg Documented By: VINCE Labs 09/27/22 06:04 09/27/22 06:04 Labs: Laboratory Results - last 24 hr 09/26/22 09/26/22 09/26/22 17:29 17:29 17:29 MCV 97.9 MCH 32.9 MCHC 33.5 RDW 12.6 Plt Count 257 D MPV 8.9 L Immature Gran % (Auto) 0.4 Neut % (Auto) 73.0 Lymph % (Auto) 14.2 L [place] % (Auto) 10.2 Eos % (Auto) 1.5 Baso % (Auto) 0.7 Lymph # (Auto) 1.1 L [place] # (Auto) 0.8 Eos # (Auto) 0.1 Baso # (Auto) 0.1 Abs Immat Gran (auto) 0.03 Absolute Neuts (auto) 5.4 Absolute Nucleated RBC 0.000 Nucleated RBC % (auto) 0.0 PT 12.3 INR 1.1 Anion Gap 16 Estim Creat Clear Calc 60.4 Estimated GFR > 60 Random Glucose 112 Calcium 9.5 D Magnesium 2.3 Total Bilirubin 1.1 H AST 23 ALT 28 Alkaline Phosphatase 99 Troponin I High Sens Total Protein 7.4 Albumin 4.4 TSH 0.77 Influenza Type A (PCR) Influenza Type B (PCR) RSV RNA Qual (PCR) SARS-CoV-2 RNA (RT-PCR) 09/26/22 09/26/22 09/26/22 17:29 17:29 17:29 MCV MCH MCHC RDW Plt Count MPV Immature Gran % (Auto) Neut % (Auto) Lymph % (Auto) [place] % (Auto) Eos % (Auto) Baso % (Auto) Lymph # (Auto) [place] # (Auto) Eos # (Auto) Baso # (Auto) Abs Immat Gran (auto) Absolute Neuts (auto) Absolute Nucleated RBC Nucleated RBC % (auto) PT INR Anion Gap Estim Creat Clear Calc Estimated GFR Random Glucose Calcium Magnesium Total Bilirubin AST ALT Alkaline Phosphatase Troponin I High Sens 10.6 D Total Protein Albumin TSH Cancelled Influenza Type A (PCR) NEGATIVE Influenza Type B (PCR) NEGATIVE RSV RNA Qual (PCR) NEGATIVE SARS-CoV-2 RNA (RT-PCR) NEGATIVE 09/27/22 09/27/22 06:04 06:04 MCV 96.8 MCH 32.5 MCHC 33.6 RDW 12.5 Plt Count 221 MPV 8.8 L Immature Gran % (Auto) 0.3 Neut % (Auto) 68.4 Lymph % (Auto) 18.4 L [place] % (Auto) 10.4 Eos % (Auto) 1.7 Baso % (Auto) 0.8 Lymph # (Auto) 1.4 [place] # (Auto) 0.8 Eos # (Auto) 0.1 Baso # (Auto) 0.1 Abs Immat Gran (auto) 0.02 Absolute Neuts (auto) 5.3 Absolute Nucleated RBC 0.000 Nucleated RBC % (auto) 0.0 PT INR Anion Gap 13 Estim Creat Clear Calc 74.1 Estimated GFR > 60 Random Glucose 97 Calcium 8.9 D Magnesium Total Bilirubin AST ALT Alkaline Phosphatase Troponin I High Sens Total Protein Albumin TSH Influenza Type A (PCR) Influenza Type B (PCR) RSV RNA Qual (PCR) SARS-CoV-2 RNA (RT-PCR) Assessment and Plan (1) Atrial fibrillation with rapid ventricular response: Status: Acute [facility] d#2 77yo F with HFpEF, paroxysmal AF s/p 3 prior ablations and with 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 continue flecainide. Cardiology consultation. Rivaroxaban held, covering iwht therpaeutic LMWH # chronic HFpEF - continue empagliflozin, furosemide, losartan # HTN - continue diltiazem, losartan, furosemide # moderate persistent asthma not in acute exac - continue montelukast # HLD - continue statin # GERD - continue PPI # VTE ppx: LMWH # dispo: eventually home In my clinical judgment, the patient requires continued inpatient hospitalization for the following reasons: rate/rhythm control Time Spent With Patient Time: Total time managing care of this patient today _40 ___ minutes. Quality Stroke Does the patient have a stroke diagnosis?: No VTE Prior VTE?: No VTE Risk Level:: Medical - moderate - high VTE Device Contraindication: Treatment Not Indicated VTE Drug Contraindication: N/A - Med Ordered
--- NOTE | 2022-09-27 10:25 | P.CONCA_ITS ---
History of Present Illness History of Present Illness Date of Service: 09/27/22 Requesting physician: Tara Mata Chief complaint: Paroxysmal atrial fibrillation. Narrative: 77-year-old female with resistant paroxysmal atrial fibrillation. She had 3 ablations in the past which were unsuccessful. She was previously on amiodarone and developed toxicity and was taken off of that. Recently was given flecainide and converted to sinus rhythm after flecainide. She was sent home and saw Dr. Brennan in the office. After discussion she was sent to [facility] where she saw Dr. Pacheco to discuss other options and get a 2nd opinion. It appears after discussion the patient and her daughter were more in favor of AV estiven ablation and pacemaker placement. She was in sinus rhythm at that time. Apparently yesterday she started feeling some palpitations and noticed her heart rate to be fast and she was back in atrial fibrillation unfortunately. She said her medications were adjusted by electrophysiology at [facility] [place] and it appears she is not on carvedilol anymore. She is currently on flecainide 150 mg twice a day and diltiazem 120 mg daily. When she starts doing activities her heart rate goes up and she feels more palpitations. Clinically not in heart failure right now. [facility] Past Medical History Medical History Atrial fibrillation with RVR Cardiomyopathy Chronic heart failure with preserved ejection fraction (HFpEF) Diastolic dysfunction History of cardiomyopathy History of cardioversion HTN (hypertension) NSTEMI (non-ST elevated myocardial infarction) Paroxysmal atrial fibrillation Paroxysmal atrial fibrillation Pulmonary hypertension Pulmonary hypertension Family History Family History Father Cancer Mother Stroke Brother Atrial fibrillation Sister Cardiovascular disease Atrial fibrillation Surgical History Surgical History History of back surgery Hx of cardiac cath Hx of hand surgery Hx of total hip arthroplasty S/P cardiac catheterization Social History Social History Household Members: None Housing: House Do you presently have visiting nurse or other home services: No Unable to assess alcohol history related to: Unknown Alcohol intake: never Patient Tobacco Use Status: Never used Tobacco Second Hand Smoke Exposure: No service: No Current occupational status: retired Meds Allergies Allergy/AdvReac Type Severity Reaction Status Date / Time aspirin [ASPIRIN] Allergy Unknown RASH Verified 09/26/22 17:01 Sulfa (Sulfonamide Allergy Unknown RASH Verified 09/26/22 17:01 Antibiotics) [SULFA (SULFONAMIDE ANTIBIOTICS)] adhesives AdvReac Unknown Uncoded 09/26/22 17:01 Active Medications: Current Medications Acetaminophen (Acetaminophen 325 Mg Tablet) 650 mg PO Q6H PRN PRN Reason: Pain, Mild (Pain Scale 1-3) Ascorbic Acid (Ascorbic Acid 500 Mg Tablet) 500 mg PO DAILY [facility] Last Admin: 09/27/22 08:54 Dose: 500 mg Atorvastatin Calcium (Atorvastatin Calcium 40 Mg Tablet) 40 mg PO DAILY [facility] Last Admin: 09/27/22 08:53 Dose: 40 mg Diltiazem HCl (Diltiazem Hcl Cd 120 Mg Cap.Er.Deg) 120 mg PO DAILY [facility]; Protocol Last Admin: 09/27/22 08:56 Dose: Not Given Empagliflozin (Empagliflozin 10 Mg Tablet) 10 mg PO DAILY [facility] Last Admin: 09/27/22 08:53 Dose: 10 mg Enoxaparin Sodium (Enoxaparin Sodium 80 Mg/0.8 Ml Syringe) 80 mg 1 mg/kg (80 mg) SUBCUT BID [facility] Last Admin: 09/27/22 08:53 Dose: 80 mg Flecainide Acetate (Flecainide Acetate 50 Mg Tablet) 150 mg PO BID [facility] Last Admin: 09/27/22 08:53 Dose: 150 mg Furosemide (Furosemide 40 Mg Tablet) 40 mg PO DAILY [facility]; Protocol Last Admin: 09/27/22 08:53 Dose: 40 mg Gabapentin (Gabapentin 300 Mg Capsule) 600 mg PO BEDTIME [facility] Last Admin: 09/26/22 21:25 Dose: 600 mg Loratadine (Loratadine 10 Mg Tablet) 10 mg PO DAILY [facility] Last Admin: 09/27/22 08:54 Dose: 10 mg Losartan Potassium (Losartan Potassium 50 Mg Tablet) 100 mg PO DAILY [facility]; Protocol Last Admin: 09/27/22 08:54 Dose: 100 mg Magnesium Oxide (Magnesium Oxide 400 Mg Tablet) 200 mg PO DAILY [facility] Last Admin: 09/27/22 08:54 Dose: 200 mg Melatonin (Melatonin 3 Mg Tablet) 6 mg PO BEDTIME PRN PRN Reason: Insomnia Montelukast Sodium (Montelukast Sodium 10 Mg Tablet) 10 mg PO BEDTIME [facility] Last Admin: 09/26/22 21:25 Dose: 10 mg Multivitamins/Vitamin C (Multivitamin Tablet) 1 tab PO DAILY [facility] Last Admin: 09/27/22 08:54 Dose: 1 tab Non-Formulary Medication (Meloxicam) 15 mg PO DAILY [facility] Omeprazole (Omeprazole 40 Mg Capsule.Dr) 40 mg PO DAILY@0630 [facility] Last Admin: 09/27/22 06:07 Dose: Not Given Ondansetron HCl (Ondansetron Hcl 4 Mg/2 Ml Vial) 4 mg IVPUSH Q8H PRN PRN Reason: Nausea and Vomiting Pharmacy Consult (Consult Rx Perform Med Rec) 1 each MISCELLANE ONCE PRN PRN Reason: Consult order Sodium Chloride (0.9 % Sodium Chloride Flush 3 Ml Syringe) 3 ml IVFLUSH QSHIFT [facility] Last Admin: 09/27/22 08:53 Dose: 3 ml Vitamin D (Cholecalciferol (Vitamin D3) 10 Mcg Tablet) 10 mcg PO DAILY [facility] Last Admin: 09/27/22 08:54 Dose: 10 mcg Vitamin E (Vitamin E (Dl,Tocopheryl Acet) 180 Mg (400 Unit) Capsule) 180 mg PO DAILY [facility] Last Admin: 09/27/22 08:53 Dose: 180 mg Home Medications Medication Instructions Recorded Confirmed Last Taken Type gabapentin 300 mg capsule 600 mg PO BEDTIME 05/16/20 09/26/22 09/25/22 History montelukast 10 mg tablet 10 mg PO BEDTIME 05/16/20 09/26/22 09/25/22 History fexofenadine 180 mg tablet 180 mg PO DAILY 06/21/21 09/26/22 09/26/22 History (Shea Allergy) cholecalciferol (vitamin D3) 10 10 mcg PO DAILY 07/28/21 09/26/22 09/26/22 History mcg (400 unit) capsule (Vitamin D3) coenzyme Q10 100 mg tablet 100 mg PO DAILY 07/28/21 09/26/22 09/26/22 History magnesium 250 mg tablet 250 mg PO DAILY 07/28/21 09/26/22 09/26/22 History multivitamin 1 tab PO DAILY 07/28/21 09/26/22 09/26/22 History losartan 100 mg tablet 100 mg PO DAILY 02/04/22 09/26/22 09/26/22 History meloxicam 15 mg tablet 15 mg PO DAILY 05/06/22 09/26/22 09/26/22 History turmeric 400 mg capsule 400 mg PO DAILY 05/06/22 09/26/22 09/26/22 History vitamin E (dl, acetate) 180 mg 180 mg PO DAILY 07/28/22 09/26/22 09/26/22 History (400 unit) capsule rivaroxaban 20 mg tablet (Xarelto) 20 mg PO DAILY@1700 09/10/22 09/26/22 09/25/22 History ascorbic acid (vitamin C) 500 mg 500 mg PO DAILY 09/26/22 09/26/22 09/26/22 History tablet furosemide 40 mg tablet 40 mg PO DAILY 09/26/22 09/26/22 09/26/22 History omeprazole 40 mg capsule,delayed 40 mg PO DAILY 09/26/22 09/26/22 09/26/22 History release Physical Exam Vital Signs: Vital Signs: Last Vital Signs Temp 98.0 F 09/27/22 08:00 Pulse 69 09/27/22 08:00 Resp 18 09/27/22 08:00 BP 170/76 H 09/27/22 08:00 Pulse Ox 94 09/27/22 08:00 O2 Del Method 09/27/22 08:00 BMI result Body Mass Index 29.9 GENERAL APPEARANCE: in no acute distress, pleasant. NECK: no carotid bruit, no jugular venous distention. SKIN: no suspicious lesions, warm and dry. HEART: no murmurs, irregular rate and rhythm. LUNGS: clear to auscultation bilaterally. ABDOMEN: soft, nontender. EXTREMITIES: no edema. PERIPHERAL PULSES: equal. NEUROLOGIC: No gross deficits, AAO X 3 Objective Labs and Meds 09/27/22 06:04 09/27/22 06:04 Lab results: Laboratory Results - last 24 hr 09/26/22 09/26/22 09/26/22 17:29 17:29 17:29 WBC 7.4 RBC 4.87 Hgb 16.0 Hct 47.7 H MCV 97.9 MCH 32.9 MCHC 33.5 RDW 12.6 Plt Count 257 D MPV 8.9 L Immature Gran % (Auto) 0.4 Neut % (Auto) 73.0 Lymph % (Auto) 14.2 L [place] % (Auto) 10.2 Eos % (Auto) 1.5 Baso % (Auto) 0.7 Lymph # (Auto) 1.1 L [place] # (Auto) 0.8 Eos # (Auto) 0.1 Baso # (Auto) 0.1 Abs Immat Gran (auto) 0.03 Absolute Neuts (auto) 5.4 Absolute Nucleated RBC 0.000 Nucleated RBC % (auto) 0.0 PT 12.3 INR 1.1 Sodium 145 Potassium 4.3 D Chloride 106 Carbon Dioxide 27 Anion Gap 16 BUN 24 H Creatinine 0.81 Estim Creat Clear Calc 60.4 Estimated GFR > 60 Random Glucose 112 Calcium 9.5 D Magnesium 2.3 Total Bilirubin 1.1 H AST 23 ALT 28 Alkaline Phosphatase 99 Troponin I High Sens Total Protein 7.4 Albumin 4.4 TSH 0.77 Influenza Type A (PCR) Influenza Type B (PCR) RSV RNA Qual (PCR) SARS-CoV-2 RNA (RT-PCR) 09/26/22 09/26/22 09/26/22 17:29 17:29 17:29 WBC RBC Hgb Hct MCV MCH MCHC RDW Plt Count MPV Immature Gran % (Auto) Neut % (Auto) Lymph % (Auto) [place] % (Auto) Eos % (Auto) Baso % (Auto) Lymph # (Auto) [place] # (Auto) Eos # (Auto) Baso # (Auto) Abs Immat Gran (auto) Absolute Neuts (auto) Absolute Nucleated RBC Nucleated RBC % (auto) PT INR Sodium Potassium Chloride Carbon Dioxide Anion Gap BUN Creatinine Estim Creat Clear Calc Estimated GFR Random Glucose Calcium Magnesium Total Bilirubin AST ALT Alkaline Phosphatase Troponin I High Sens 10.6 D Total Protein Albumin TSH Cancelled Influenza Type A (PCR) NEGATIVE Influenza Type B (PCR) NEGATIVE RSV RNA Qual (PCR) NEGATIVE SARS-CoV-2 RNA (RT-PCR) NEGATIVE 09/27/22 09/27/22 06:04 06:04 WBC 7.8 RBC 4.71 Hgb 15.3 Hct 45.6 MCV 96.8 MCH 32.5 MCHC 33.6 RDW 12.5 Plt Count 221 MPV 8.8 L Immature Gran % (Auto) 0.3 Neut % (Auto) 68.4 Lymph % (Auto) 18.4 L [place] % (Auto) 10.4 Eos % (Auto) 1.7 Baso % (Auto) 0.8 Lymph # (Auto) 1.4 [place] # (Auto) 0.8 Eos # (Auto) 0.1 Baso # (Auto) 0.1 Abs Immat Gran (auto) 0.02 Absolute Neuts (auto) 5.3 Absolute Nucleated RBC 0.000 Nucleated RBC % (auto) 0.0 PT INR Sodium 141 Potassium 3.7 Chloride 109 H Carbon Dioxide 23 Anion Gap 13 BUN 18 H Creatinine 0.66 Estim Creat Clear Calc 74.1 Estimated GFR > 60 Random Glucose 97 Calcium 8.9 D Magnesium Total Bilirubin AST ALT Alkaline Phosphatase Troponin I High Sens Total Protein Albumin TSH Influenza Type A (PCR) Influenza Type B (PCR) RSV RNA Qual (PCR) SARS-CoV-2 RNA (RT-PCR) Imaging Radiologist's impression: Impressions Chest X-Ray 09/26/22 17:13 IMPRESSION: Stable atelectasis/scarring in the right middle lobe and left lung base. No new focal consolidation. No acute process is seen as compared to the prior study. Assessment and Plan (1) Paroxysmal atrial fibrillation: Status: Acute Plan 77-year-old female with resistant atrial fibrillation. She had ablation x3 in the past but had recurrent atrial fibrillation. Previously was on amiodarone and developed decrease in diffusion capacity and there was concern for toxicity and she was taken off the amiodarone. Currently on flecainide 150 mg twice a day and diltiazem. She was previously also on carvedilol. Blood pressure is elevated. She feels palpitations when she does activities. I think carvedilol should be resumed. Please start her on 12.5 mg twice a day. Depending on blood pressure we can titrated back to 25 mg twice a day which was her previous dose. Continue anticoagulation. I had a detailed discussion with the patient about future options. I have asked her whether she wishes to go back to [facility] or would prefer to get further care at [facility]. The patient is fine with either places. We w ill adjust medications to see if she converts or her heart rate is improved enough that she can not function at home. In that case we will discharge her home and planned elective AV estiven ablation and pacemaker placement. I have reached out to electrophysiology at [facility] to see if they have any availability to do this early next week and if it is possible then we will transfer her to [facility]. Thank you for allowing me to participate in the care of your patient. Please feel free to contact me if you have any questions. Time Spent With Patient Time: Total time managing care of this patient today ____ minutes. Procedures Date of Service Date of Service: 09/27/22
[2022-09-27] MEDS: carvediloL 12.5 MG TABLET PO ×2 (12:16→21:42)
[2022-09-27] MEDS: Gabapentin 300 MG CAPSULE 600 MG PO (21:43)
[2022-09-27] MEDS: Melatonin 3 MG TABLET 6 MG PO (21:44)
[2022-09-27] MEDS: Montelukast Sodium 10 MG TABLET PO (21:53)
[2022-09-28 08:00] VITALS: BP 150/72; PULSE 68; RESP 18; TEMP 36.6; O2SAT 98
[2022-09-28] MEDS: Flecainide Acetate 50 MG TABLET 150 MG PO (08:37)
[2022-09-28] MEDS: Empagliflozin 10 MG TABLET PO (08:38)
[2022-09-28] MEDS: Atorvastatin Calcium 40 MG TABLET PO (08:38)
[2022-09-28] MEDS: Vitamin E (Dl,Tocopheryl Acet) 180 MG (400 UNIT) CAPSULE PO (08:38)
[2022-09-28] MEDS: Multivitamin TABLET 1 TAB PO (08:39)
[2022-09-28] MEDS: Furosemide 40 MG TABLET PO (08:39)
[2022-09-28] MEDS: Losartan Potassium 50 MG TABLET 100 MG PO (08:39)
[2022-09-28] MEDS: Cholecalciferol (Vitamin D3) 10 MCG TABLET PO (08:39)
[2022-09-28] MEDS: Magnesium Oxide 400 MG TABLET 200 MG PO (08:39)
[2022-09-28] MEDS: Ascorbic Acid 500 MG TABLET PO (08:40)
[2022-09-28] MEDS: Loratadine 10 MG TABLET PO (08:40)
[2022-09-28] MEDS: Enoxaparin Sodium 80 MG/0.8 ML SYRINGE SUBCUT (08:41)
[2022-09-28] MEDS: 0.9 % Sodium Chloride Flush 3 ML SYRINGE IVFLUSH (08:41)
[2022-09-28] MEDS: Omeprazole 40 MG CAPSULE.DR PO (08:41)
[2022-09-28] MEDS: carvediloL 12.5 MG TABLET PO (11:13)
--- NOTE | 2022-09-28 11:44 | PM.PNCARD ---
Subjective Subjective Date of Service: 09/28/22 Interval history: Seen examined at bedside. Feeling better. Pulse is quite regular and telemetry is showing sinus rhythm. Physical Exam Vital Signs: Last Vital Signs Temp 97.9 F 09/28/22 08:00 Pulse 68 09/28/22 08:00 Resp 18 09/28/22 08:00 BP 150/72 H 09/28/22 08:00 Pulse Ox 98 09/28/22 08:00 O2 Del Method 09/28/22 08:00 BMI result Body Mass Index 29.9 GENERAL APPEARANCE: in no acute distress, pleasant. NECK: no carotid bruit, no jugular venous distention. SKIN: no suspicious lesions, warm and dry. HEART: no murmurs, regular rate and rhythm. LUNGS: clear to auscultation bilaterally. ABDOMEN: soft, nontender. EXTREMITIES: no edema. PERIPHERAL PULSES: equal. NEUROLOGIC: No gross deficits, AAO X 3 Objective Labs and Meds 09/27/22 06:04 09/27/22 06:04 Progress Note: A&P Assessment and plan (1) Paroxysmal atrial fibrillation: Status: Acute Plan 77-year-old female who is presenting for paroxysmal atrial fibrillation. She has quite resistant atrial fibrillation and had 2nd opinion at [facility] to discuss ablation versus AV estiven ablation and pacemaker implantation. She was more inclined to word the later. She unfortunately developed AFib again and came to the hospital. It appears her carvedilol was stopped when she had consultation at [place]. She was taking flecainide 150 mg twice a day and Cardizem 120 mg. She was given back her carvedilol at 12.5 mg twice a day yesterday and it appears she is back in sinus rhythm today. Increase the carvedilol back to 25 mg twice a day. Can be discharged home. I reached out to Dr Nielson for transfer to [facility] initially to see if she can be done inpatient but I am still waiting for response. Regardless she can be discharged home and this can be arranged as outpatient. Thank you for allowing me to participate in the care of your patient. Please feel free to contact me if you have any questions. Time Spent With Patient Time: Total time managing care of this patient today ____ minutes. Progress Note: Quality Stroke Does the patient have a stroke diagnosis?: No Procedures Date of Service Date of Service: 09/28/22
[2022-09-28 12:00] VITALS: BP 148/74; PULSE 69; RESP 17; TEMP 36.6; O2SAT 98
--- NOTE | 2022-09-28 12:22 | P.DS_ITS ---
DS: Providers Provider Date of Service: 09/28/22 Date of admission: 09/26/22 19:43 Primary care physician: Yair Huff MD Consults: 09/26/22 19:46 Consult to Cardiology Routine Consulting Provider: Rickie Allison Reason for consultation: Afib with rvr Has provider been notified: Yes DS: Diagnosis Discharge Diagnosis (1) Paroxysmal atrial fibrillation: Status: Acute DS: Summary Hospital Course Hospital Course: Date of Service: 09/26/22 Chief Complaint: Palpitations Len is a 77-year-old female with pertinent history of congestive heart failure with preserved ejection fraction, paroxysmal atrial fibrillation on Xarelto, essential hypertension, pulmonary hypertension who presents to the emergency department for evaluation of palpitations.? Patient states she has had multiple cardioversions and ablations in the past.? She saw Dr. Brennan on 09/18 and went over her options with him.? Patient was recently hospitalized for atrial fibrillation when flecainide was increased to 150 mg b.i.d..? Patient cannot tolerate amiodarone due to possible pulmonary toxicity with decreased diffusion capacity.? States she discussed the possibility of pacemaker and is now ready to undergo pacemaker placement if needed.? Patient started to developed palpitations on the day of presentation.? It was persistent and without any relieving factors.? She denies fever, chills, chest discomfort, abdominal pain, changes in urinary bowel habits.? States he has chronic dyspnea on exertion. In the emergency department, patient was found to be in AFib with RVR.? Cardiology was consulted who requested admission. 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 and continued on PO diltiazem, flecainide patient seen by Dr. Allison from Cardiology, plan was to transfer her to [facility] for AV estiven ablation and pacemaker implantation ,however patient converted to normal sinus rhythm and remains hemodynamically stable therefore she is being discharged home with recommendations to call Cardiology with recurrent symptoms, she is recommended to continue Xarelto. # in regard to chronic heart failure with preserved EF patient had no acute exacerbation continue empagliflozin, furosemide, and losartan. # HTN blood pressure is stable continue home medication # moderate persistent asthma no acute exacerbation noted continue montelukastt # HLD - continue statin # GERD - continue PPI Time Spent with Patient Time attestation: Total time managing care of this patient today ____ minutes. Discharge coordination time: Greater than 30 minutes Quality: Safe Use of Opioids Does Pt have an Active Cancer Diagnosis on the Problem List?: No Quality: Stroke Does the patient have a stroke diagnosis?: No Physical Exam Vital Signs: Vital Signs: Last Vital Signs Temp 97.9 F 09/28/22 08:00 Pulse 68 09/28/22 08:00 Resp 18 09/28/22 08:00 BP 150/72 H 09/28/22 08:00 Pulse Ox 98 09/28/22 08:00 O2 Del Method 09/28/22 08:00 BMI result Body Mass Index 29.9 Const: Other: Gen: in no acute distress HEENT: sclera anicteric, moist mucus membranes Neck: supple Lungs: clear to auscultation bilaterally Heart: regular rate and rhythm, no murmurs Abd: soft, non-tender, non-distended Ext: no edema Skin: warm/well-perfused Neuro: alert and oriented x3, no focal findings Psych: appropriate affect DS: Data Data Completed and Pending Completed studies during hospitalization [Text1]: Procedures Christian of Cardiac Rhythm, Single (09/10/22) Ultrasonography of Heart with Aorta, Transesophageal (07/27/21) Discharge Plan Discharge Anticipated Discharge Date/Time: 09/28/22 14:14 Patient Disposition: Home, Self-Care Discharge Diagnosis: Paroxysmal Atrial fibrillation with RVR Referrals: Yair Huff MD [Primary Care Provider] - 1 Week Discharge Medications: New carvedilol [Coreg] 12.5 mg tablet 12.5 mg PO BID Qty: 60 0RF Rx Instructions: must administer with a meal/food Continued atorvastatin 40 mg tablet 40 mg PO DAILY 90 Days Qty: 90 3RF Jardiance 10 mg tablet 10 mg PO DAILY Qty: 30 2RF diltiazem HCl [Cardizem CD] 120 mg capsule,extended release 24hr 120 mg PO DAILY Qty: 30 1RF Protocol: Hold for SBP/HR < HOLD for SBP < : 90 HOLD for HR < : 60 Rx Instructions: Keep appt w Dr. Brennan on 09/18/22 @ 245pm coenzyme Q10 100 mg Tablet 100 mg PO DAILY multivitamin Tablet 1 tab PO DAILY magnesium 250 mg Tablet 250 mg PO DAILY cholecalciferol (vitamin D3) [Vitamin D3] 10 mcg (400 unit) Capsule 10 mcg PO DAILY Rx Instructions: patient not sure of her dose vitamin E (dl, acetate) 180 mg (400 unit) Capsule 180 mg PO DAILY ascorbic acid (vitamin C) 500 mg Tablet 500 mg PO DAILY omeprazole 40 mg Capsule,Delayed Release(Dr/Ec) 40 mg PO DAILY furosemide 40 mg Tablet 40 mg PO DAILY Xarelto 20 mg tablet 20 mg PO DAILY@1700 flecainide 50 mg Tablet 150 mg PO BID Qty: 60 0RF montelukast 10 mg tablet 10 mg PO BEDTIME gabapentin 300 mg capsule 600 mg PO BEDTIME losartan 100 mg tablet 100 mg PO DAILY fexofenadine [Shea Allergy] 180 mg tablet 180 mg PO DAILY meloxicam 15 mg tablet 15 mg PO DAILY turmeric 400 mg capsule 400 mg PO DAILY Discharge Orders: Discharge Order (Routine); Ordered 09/28/22 Ordered By: Felipe Jalloh Diet: Advance to usual diet Activity on Discharge: As tolerated Stand Alone Forms: Patient Portal Discharge page Care Plan Goals: Continue flecainide and Cardizem, added Coreg 12.5 mg twice daily, call Cardiology at [facility] with recurrent palpitations, chest pain, shortness of breath, lightheadedness or dizziness, if no response go to [facility] Emergency Room. Health Concerns: Continue home medications Plan of Treatment: Outpatient follow-up with Cardiology as per cardiology recommendation, outpatient follow-up with primary care physician Assessment: As above
[2022-09-28] MEDS: dilTIAZem HCL CD 120 MG CAP.ER.DEG PO (13:16)
--- NOTE | 2022-09-28 16:28 | MHC.CM.PN ---
PT TO DC HOME TODAY, NO SERVICES FAMILY TO TRANSPORT
== END 2022-09-28 17:44 | disposition home or self-care (01) | DRG 309 ==
LOC: HO.ED 18:57 → HO.EDOVER 19:47 → HO.IMC 09-27 00:20
PROVIDERS: Physician Assistant Medical; Admitting Provider Student in an Organized Health Care Education/Training Program; Emergency Provider Emergency Medicine; PCP Family Medicine; Visit Provider Hospitalist
DX: I48.0 Paroxysmal atrial fibrillation (principal); I50.32 Chronic diastolic (congestive) heart failure; I11.0 Hypertensive heart disease with heart failure; I27.20 Pulmonary hypertension, unspecified; E78.2 Mixed hyperlipidemia; J45.40 Moderate persistent asthma, uncomplicated; Z20.822 Contact with and (suspected) exposure to COVID-19; Z88.2 Allergy status to sulfonamides; Z88.6 Allergy status to analgesic agent; Z79.01 Long term (current) use of anticoagulants; Z79.899 Other long term (current) drug therapy
CPT/HCPCS: 0241U; 36415; 71046; 80048; 80053; 83735; 84443; 84484; 85025; 85610; 93005; 99222; 99285; J1650

== ENCOUNTER 2022-10-06 13:38 | Outpatient (REF) | payer MEDICARE, SELFPAY ==
[2022-10-06 16:27] LABS: MANUAL DIFF FLAG NO
[2022-10-06 16:32] LABS: Basophils Percent Auto 0.6 % (0-2); Eosinophils Absolute Auto 0.2 X10*3/uL (0.0-0.4); Eosinophils Percent Auto 2.6 % (0-4); Hematocrit 42.6 % (37.0-47.0); Imm Gran Abs Auto 0.02 X10*3/uL (0.00-0.03); Imm Gran Pct Auto 0.3 % (0.0-0.4); Lymphocytes Absolute Auto 1.1 X10*3/uL (1.2-4.9); Lymphocytes Percent Auto 18.4 % (20-40); Mean Corpuscular HGB Conc 32.9 g/dl (31.0-35.0); Mean Corpuscular Hemoglobin 32.9 pg (27.0-33.0); Mean Platelet Volume 10.1 fL (9.4-12.3); Monocytes Absolute Auto 0.8 X10*3/uL (0.1-1.2); Monocytes Percent Auto 13.1 % (2-11); Platelet Count 221 X10*3/uL (160-400); Red Blood Count 4.26 X10*6/uL (4.20-5.50); Red Cell Distribution Width 12.4 % (11.0-16.0); White Blood Count 6.2 X10*3/uL (4.8-10.8)
[2022-10-06 17:51] LABS: Anion Gap 12 (12-20); Blood Urea Nitrogen 28 mg/dL (9-16); Carbon Dioxide 27 mmol/L (22-29); Chloride 108 mmol/L (96-108); Estimated Glomerular Filt Rate 51; Magnesium 2.2 mg/dL (1.6-2.6); Potassium 4.8 mmol/L (3.3-5.1); Sodium 142 mmol/L (135-145)
== END 2022-10-06 13:39 | disposition home or self-care (01) ==
LOC: HO.HMGCLDS 13:38
PROVIDERS: PCP Family Medicine; Visit Provider Family Medicine
DX: R53.83 Other fatigue (principal); R06.02 Shortness of breath; I10 Essential (primary) hypertension
CPT/HCPCS: 36415; 80051; 82565; 83735; 84520; 85025

== ENCOUNTER 2022-10-10 14:05 | Outpatient (REF) | payer MEDICARE, SELFPAY ==
[2022-10-10 14:36] VITALS: O2SAT 95
[2022-10-10 14:55] LABS: ABG Refer to POC result
[2022-10-11 08:17] LABS: ABG pCO2 32 mmHg (32-45); ABG pH 7.43 (7.35-7.45)
[2022-10-11 08:18] LABS: ABG Base Excess -1.5 mmol/L; ABG HCO3 21 mmol/L (22-26); ABG pO2 78 mmHg (83-108)
== END 2022-10-10 14:06 | disposition home or self-care (01) ==
LOC: HO.LAB 14:05
PROVIDERS: PCP Family Medicine; Visit Provider Family Medicine
DX: R53.83 Other fatigue (principal); R06.02 Shortness of breath; Z51.81 Encounter for therapeutic drug level monitoring; Z79.899 Other long term (current) drug therapy
CPT/HCPCS: 36415; 36600; 80181; 82803

== ENCOUNTER 2022-10-21 07:54 | Outpatient (REF) | payer MEDICARE, SELFPAY ==
--- NOTE | 2022-10-21 | PFT_ITS ---
FLOWS: 1. FEV1 77% of predicted at 1.63 L. 2. FVC 68% of predicted at 1.91 L. 3. FEV1 to FVC ratio 0.85. 4. Positive bronchodilator response. LUNG VOLUMES: 1. Total lung capacity 89% of predicted at 4.63 L. 2. Residual volume 106% of predicted at 2.56 L. 3. Diffusion capacity is moderately decreased, diffusion capacity adjusted, being mildly decreased after correction for alveolar ventilation. IMPRESSION: No obstructive or restrictive ventilatory defect. Positive bronchodilator response. Decreased diffusion capacity suggest emphysema. Denilson Foreman MD AP/MODL / [id number]
== END 2022-10-21 07:55 | disposition home or self-care (01) ==
LOC: HO.RESP 07:54
PROVIDERS: PCP Family Medicine; Visit Provider Family Medicine
DX: R06.02 Shortness of breath (principal)
CPT/HCPCS: 94060; 94727; 94729

== ENCOUNTER → 2022-11-03 14:52 | Outpatient (BNVA) | payer MEDICARE, SELFPAY | PROVIDERS: PCP Family Medicine; Referring Provider Family Medicine; Visit Provider Internal Medicine Cardiovascular Disease | DX: I48.0 Paroxysmal atrial fibrillation (principal); I50.32 Chronic diastolic (congestive) heart failure | CPT/HCPCS: 93005; 99212 ==

== ENCOUNTER 2022-11-14 12:02 | Outpatient (REF) | payer MEDICARE, SELFPAY ==
[2022-11-14 13:30] LABS: Anion Gap 11 (12-20); Carbon Dioxide 27 mmol/L (22-29); Chloride 111 mmol/L (96-108); Potassium 4.1 mmol/L (3.3-5.1); Sodium 145 mmol/L (135-145)
== END 2022-11-14 12:03 | disposition home or self-care (01) ==
LOC: HO.LAB 12:02
PROVIDERS: PCP Family Medicine; Visit Provider Family Medicine
DX: I10 Essential (primary) hypertension (principal)
CPT/HCPCS: 36415; 80051

== ENCOUNTER 2022-12-09 09:05 | Outpatient (REF) | payer MEDICARE, SELFPAY ==
[2022-12-09 10:03] LABS: Anion Gap 13 (12-20); Carbon Dioxide 27 mmol/L (22-29); Chloride 110 mmol/L (96-108); Magnesium 2.4 mg/dL (1.6-2.6); Sodium 145 mmol/L (135-145)
== END 2022-12-09 09:06 | disposition home or self-care (01) ==
LOC: HO.LAB 09:05
PROVIDERS: Absent Provider Internal Medicine Cardiovascular Disease; PCP Family Medicine; Visit Provider Family Medicine
DX: I10 Essential (primary) hypertension (principal)
CPT/HCPCS: 36415; 80051; 83735

== ENCOUNTER 2022-12-15 14:00 | Emergency (ER) | payer OTHER, MEDICARE, SELFPAY ==
--- NOTE | ~2022-12-15 | XR_ITS ---
EXAMINATION: XR SHOULDER, LEFT CLINICAL INFORMATION: Reduction COMPARISON: Earlier same day TECHNIQUE: Two views of the left shoulder. FINDINGS: Successful reduction of the anterior shoulder dislocation. Mildly (5 mm) displaced avulsion fracture of the greater tuberosity. Acromioclavicular joint intact. Soft tissues unremarkable. XR/XR shoulder LT min 2V IMPRESSION: * Successful reduction of the anterior shoulder dislocation. * Mildly displaced avulsion fracture of the greater tuberosity.
--- NOTE | ~2022-12-15 | XR_ITS ---
EXAMINATION: XR SHOULDER , LEFT CLINICAL INFORMATION: Fall COMPARISON: None available at the time of this dictation. TECHNIQUE: Frontal and scapular Y view of the shoulder. FINDINGS: BONES: There is anterior subglenoid dislocation of the humeral head, there is a fracture of the humeral greater tuberosity. Adjacent clavicle and scapula not well visualized, no gross abnormality. Included adjacent ribs are intact. JOINTS: Anterior subglenoid dislocation of the humeral head. SOFT TISSUE AND INCLUDED LUNG: Normal. XR/XR shoulder LT min 2V IMPRESSION: * Anterior subglenoid dislocation of the humeral head. * Mildly displaced Fracture of the humeral greater tuberosity.
--- NOTE | ~2022-12-15 | CT_ITS ---
EXAMINATION: CT head/brain wo IV con, CT cervical spine wo IV con INDICATION INFORMATION: Reason for Exam fall, pain COMPARISON: MR brain 02/15/2013 TECHNIQUE: Separate noncontrast CT examinations of the head and cervical spine were performed. Coronal and sagittal images were created for each examination at the technologist workstation. This CT examination was performed using dose optimization techniques as appropriate, variously including the following: *Automated exposure control *Adjustment of mA and/or kV according to patient size (this includes techniques or standardized protocols for targeted exams where dose is matched to indication/reason for exam; i.e. extremities or head) *Use of iterative reconstruction technique DLP: 1878 mGy-cm for the CT head and cervical spine and abdomen and pelvis reported separately FINDINGS: Head: No acute osseous or soft tissue abnormality. The mastoid air cells and visualized portions of the paranasal sinuses are well aerated. Status post bilateral lens replacements. Degenerative changes of the bilateral temporomandibular joints. There is no evidence of acute intracranial hemorrhage or territorial infarction. No abnormal mass effect or midline shift is seen. Miles to white matter differentiation is well preserved. No extra-axial fluid collections are identified. No hydrocephalus. Patchy periventricular and deep white matter hypoattenuation is consistent with mild small vessel ischemic changes. Cervical spine: There is no evidence of acute cervical spine fracture. Vertebral bodies remain normal in height. Alignment is maintained. Multilevel loss of disc space height. No pre- or paravertebral soft tissue abnormality is identified. Patchy groundglass in the bilateral lung apices may reflect edema or atypical/viral infection.. The thyroid gland is unremarkable. CT/CT cervical spine wo IV con IMPRESSION: 1. No acute intracranial abnormality. 2. No cervical spine fracture or traumatic malalignment. 3. Patchy groundglass in the bilateral lung apices may reflect pulmonary edema or atypical/viral infection.
--- NOTE | ~2022-12-15 | CT_ITS ---
EXAMINATION: CT ABDOMEN AND PELVIS WITHOUT CONTRAST CLINICAL INFORMATION: Left hip pain and spine pain COMPARISON: 09/09/2022 CT abdomen pelvis TECHNIQUE: Multidetector volumetric imaging was performed from the superior aspect of the liver through the pubic symphysis. Sagittal and coronal reformatted images were obtained on the technologist's workstation. This CT examination was performed using dose optimization techniques as appropriate, variously including the following: *Automated exposure control *Adjustment of mA and/or kV according to patient size (this includes techniques or standardized protocols for targeted exams where dose is matched to indication/reason for exam; i.e. extremities or head) *Use of iterative reconstruction technique DLP: 872 mGy-cm FINDINGS: LUNG BASES: Dependent bibasilar atelectasis. ABDOMINAL AND PELVIC WALL: Small fat-containing umbilical hernia. LIVER AND BILIARY TREE: Unremarkable. GALLBLADDER: Unremarkable. PANCREAS: Unremarkable. SPLEEN: Unremarkable. ADRENAL GLANDS: Unremarkable. KIDNEYS AND URETERS: Bosniak 1 benign-appearing bilateral renal cysts, no imaging follow-up recommended. GASTROINTESTINAL TRACT: Small hiatal hernia. Incidentally noted duodenal diverticulum. Colonic diverticulosis without evidence of diverticulitis normal appendix. VASCULAR: Unremarkable. LYMPH NODES/PERITONEUM: Schmorl's node in the superior endplate of T11 unchanged. FREE FLUID: None. BLADDER: Unremarkable. PELVIC VISCERA: Myomatous uterus. OSSEOUS STRUCTURES: Postsurgical changes of right total hip arthroplasty. Moderate degenerative changes of the left hip. No acute fracture or dislocation. Levoconvex curvature of the lumbar spine. Mild to level degenerative disc disease. Sclerosis along the right aspect of the sacroiliac joint which could be seen in the setting of osteitis condensans ilii. CT/CT abdomen pelvis wo IV con IMPRESSION: 1. Postsurgical changes of right total hip arthroplasty. Moderate degenerative changes of the left hip. No acute fracture or dislocation. 2. Sclerosis along the right aspect of the sacroiliac joint which could be seen in the setting of osteitis condensans ilii.
--- NOTE | ~2022-12-15 | XR_ITS ---
EXAMINATION: XR WRIST, LEFT CLINICAL INFORMATION: Pain after fall COMPARISON: None available. TECHNIQUE: PA, lateral, and oblique views of the left wrist. FINDINGS: There is a plate and screw devices overlying the proximal portion of the metacarpal of the first digit. Degenerative changes are present at DIP joints most marked in the second digit. Degenerative changes are seen at the triscaphe joint and at the base of the first metacarpal. There is mild narrowing of the radial carpal joint. No acute fractures or dislocations are seen. XR/XR wrist LT 2V IMPRESSION: Degenerative and postsurgical changes as described above. No evidence of an acute injury.
[2022-12-15 14:11] VITALS: BP 170/110; BP 191/100; PULSE 69; PULSE 78; RESP 18; O2SAT 93
--- NOTE | 2022-12-15 14:12 | ED.GENADULT ---
HPI - General Adult General Chief complaint: Fall Stated complaint: slip & fall, pain in shoulder per ems Time Seen by Provider: 12/15/22 14:11 Source: patient, family (daughters) and EMS Mode of arrival: EMS Limitations: no limitations History of Present Illness HPI narrative: Patient is a 77 year old assigned female at with a history of atrial fib on xarelto, heart failure, and chronic cough presenting to the emergency department today with left shoulder pain. Patient states that she was at work when she slipped and fell, landing on her left shoulder. Patient denies any loss of consciousness. Patient denies any dizziness, lightheadedness, abdominal pain, nausea, vomiting, fever, chills, blurry vision, double vision, loss of vision, chest pain, difficulty breathing, shortness of breath, back pain, night sweats, pain with urination, increased urinary frequency, increased urinary urgency, blood in her urine or stool, syncope or a near syncopal episode, bowel incontinence, bladder incontinence, bowel retention, bladder retention, or any other complaints at this time. Onset (ago): minute(s) Location: left and upper extremity Radiation: non-radiation Severity: moderate Severity scale (1-10): 6 Quality: aching Pain Consistency: constant Relieving factors: none Exacerbating factors: none Associated symptoms: denies other symptoms Treatments prior to arrival: none Related Data Home Medications Medication Instructions Recorded Confirmed gabapentin 300 mg capsule 600 mg PO BEDTIME 05/16/20 11/03/22 montelukast 10 mg tablet 10 mg PO BEDTIME 05/16/20 11/03/22 fexofenadine 180 mg tablet 180 mg PO DAILY 06/21/21 11/03/22 ([facility]a Allergy) cholecalciferol (vitamin D3) 10 10 mcg PO DAILY 07/28/21 11/03/22 mcg (400 unit) capsule (Vitamin D3) coenzyme Q10 100 mg tablet 100 mg PO DAILY 07/28/21 11/03/22 magnesium 250 mg tablet 250 mg PO DAILY 07/28/21 11/03/22 multivitamin 1 tab PO DAILY 07/28/21 11/03/22 losartan 100 mg tablet 100 mg PO DAILY 02/04/22 11/03/22 meloxicam 15 mg tablet 15 mg PO DAILY 05/06/22 11/03/22 vitamin E (dl, acetate) 180 mg 180 mg PO DAILY 07/28/22 11/03/22 (400 unit) capsule rivaroxaban 20 mg tablet (Xarelto) 20 mg PO DAILY@1700 09/10/22 11/03/22 ascorbic acid (vitamin C) 500 mg 500 mg PO DAILY 09/26/22 11/03/22 tablet furosemide 40 mg tablet 40 mg PO DAILY 09/26/22 11/03/22 omeprazole 40 mg capsule,delayed 40 mg PO DAILY 09/26/22 11/03/22 release turmeric 400 mg capsule 100 mg PO DAILY 11/03/22 11/03/22 Previous Rx's Medication Instructions Recorded atorvastatin 40 mg tablet 40 mg PO DAILY 90 days #90 tabs 03/13/22 empagliflozin 10 mg tablet 10 mg PO DAILY #30 tabs 09/30/22 (Jardiance) carvedilol 12.5 mg tablet (Coreg) 12.5 mg PO BID 90 days #180 tabs 10/22/22 diltiazem HCl 120 mg 120 mg PO DAILY 90 days #90 caps 10/27/22 capsule,extended release 24 hr (Cardizem CD) ipratropium 0.5 mg-albuterol 3 mg 3 ml inhalation Q4-6H PRN for 12/02/22 (2.5 mg base)/3 mL nebulization wheezing #180 mL soln oxycodone 10 mg tablet 10 mg PO Q6H PRN pain #7 tabs 12/15/22 Allergies Allergy/AdvReac Type Severity Reaction Status Date / Time aspirin [ASPIRIN] Allergy Unknown RASH Verified 11/03/22 14:58 Sulfa (Sulfonamide Allergy Unknown RASH Verified 11/03/22 14:58 Antibiotics) [SULFA (SULFONAMIDE ANTIBIOTICS)] flecainide AdvReac Intermediate Dizziness Verified 11/03/22 16:14 amiodarone AdvReac Mild Dizziness Verified 11/03/22 16:15 adhesives AdvReac Unknown Uncoded 09/26/22 17:01 Review of Systems Constitutional: Constitutional: Reports no additional constitutional complaints, Denies chills, Denies fever(s) and Denies night sweats Eyes: Eyes: Reports no additional eye complaints, Denies blurry vision, Denies change in vision, Denies diplopia, Denies eye discharge, Denies loss of vision and Denies eye pain ENT: Denies dizziness Cardiovascular: Cardiovascular: Reports no additional cardiovascular complaints, Denies chest pain, Denies lightheadedness, Denies Loss of Consciousness and Denies dyspnea Respiratory: Respiratory: Reports no additional respiratory complaints and Denies dyspnea Gastrointestinal: Gastrointestinal: Reports no additional gastrointestinal complaints, Denies abdominal pain, Denies melena, Denies hematochezia, Denies change in bowel habits and Denies change in stool character Genitourinary: Genitourinary: Denies hematuria, Denies urinary frequency, Denies dysuria, Denies urinary incontinence, Denies urinary hesitancy and Denies urinary urgency Musculoskeletal: Musculoskeletal: Reports no additional musculoskeletal complaints, Denies numbness and Denies tingling Comments: left shoulder pain Neurologic: Denies dizziness, Denies loss of vision, Denies numbness and Denies tingling Psychiatric: Psychiatric: Reports no additional psychiatric complaints Endocrine: Endocrine: Reports no additional endocrine complaints Hematologic/Lymphatic: Hematologic/Lymphatic: Reports no additional hematologic/lymphatic complaints Allergic/Immunologic: Allergic/Immunologic: Reports no additional allergic/immunologic complaints [facility], [facility] Past Medical History Attestation statement: The following information was validated with the patient. (all information validated with the patient's daughters) Source: old records reviewed, obtained from family (patient's daughters) and nursing notes reviewed Medical History Atrial fibrillation with RVR Cardiomyopathy Chronic heart failure with preserved ejection fraction (HFpEF) Diastolic dysfunction History of cardiomyopathy History of cardioversion HTN (hypertension) NSTEMI (non-ST elevated myocardial infarction) Paroxysmal atrial fibrillation Paroxysmal atrial fibrillation Pulmonary hypertension Pulmonary hypertension Surgical History History of back surgery Hx of cardiac cath Hx of hand surgery Hx of total hip arthroplasty S/P cardiac catheterization Family History Family History Father Cancer Mother Stroke Brother Atrial fibrillation Sister Cardiovascular disease Atrial fibrillation Social History Social History Household Members: None Housing: House Do you presently have visiting nurse or other home services: No Unable to assess alcohol history related to: Unknown Alcohol intake: never Patient Tobacco Use Status: Never used Tobacco Second Hand Smoke Exposure: No Advance Directives: Yes Advance Directives on File: No service: No Current occupational status: retired Physical Exam ED Vital Signs: Vital Signs - 24 hr 12/15/22 14:11 12/15/22 15:50 Pulse Rate 69 66 Respiratory Rate 18 14 Blood Pressure 191/100 H 162/77 H Pulse Oximetry 93 93 Oxygen Delivery Method Room Air BMI result Body Mass Index 30.0 Const General: cooperative, no acute distress, alert and awake Nutritional Appearance: well nourished Orientation/consciousness: patient oriented x3 Limitations: no limitations HENMT Head: Yes normal to inspection and Yes atraumatic Ears: hearing grossly normal bilaterally and external ears normal General nose exam: Normal external nose present, no nasal discharge noted and no epistaxis Face and sinus: Yes normal facial exam, No abrasion and No laceration Mouth: Normal oral and palatal mucosa present, no drooling and no muffled voice Eyes General: appearance normal, both eyes and all related structures Periorbital: periorbital findings normal Eyelids: Yes eyelids normal Conjunctivae: conjunctivae normal Pupils: Equal, round and reactive pupils present EOM: EOMs intact bilaterally Neck Neck: Yes normal visual inspection, Yes full ROM and Yes no lymphadenopathy Chest Chest palpation & inspection: normal inspection of the chest Resp Effort & Inspection: normal respiratory effort and able to speak in complete sentences GI Inspection: Yes normal to inspection Neuro General: patient oriented x3 and moves all extremities Cranial nerves: Yes Equal, round and reactive pupils present Cognition (Neuro): normal cognition Motor exam (neuro): 5/5 motor strength present throughout Sensory Exam: Normal double simultaneous stimulation for sensation Coordination: [id number] test normal Extrem Other: decreased ROM of the left shoulder with obvious deformity. Minimal bruising present to the left wrist. General: Yes capillary refill normal Psych Appearance: grossly normal Mental Status: mental status grossly normal Affect: normal affect Attitude: cooperative Thought process: Normal thought process present Thought content: Normal thought content present Insight: Good insight present (Psych) Medications Administered Discontinued Medications Generic Name Dose Route Start Last Admin Trade Name Freq PRN Reason Stop Dose Admin Morphine Sulfate 4 mg 12/15/22 14:17 12/15/22 14:28 Morphine Sulfate 4 Mg/Ml Cartridge IM 12/15/22 14:18 4 mg ONCE ONE Administration Protocol Propofol 200 mg 12/15/22 14:49 12/15/22 17:15 Propofol 200 Mg/20 Ml Vial IVPUSH 12/15/22 14:50 Not Given ONCE ONE Procedures Orthopedic Joint Reduction Joint #1: Time Out Performed: Yes Side: left Joint Reduction Location: shoulder Shoulder Technique Used (if applicable): traction/counter-traction and external rotation Technique used: traction/counter-traction Post-reduction neuro exam: intact Post-reduction vascular: intact Post Reduction X-Ray Obtained: Yes Post Reduction X-Ray Results: reduced Splint Applied: Yes Patient Tolerated Procedure: well Additional Comments: Dr. Dudley was at the bed side to help with the procedure. Orthopedic Splinting/Casting Injury #1: Side: left Upper Extremity Injury Location: shoulder Medical Decision Making Medical Decision Making MDM Narrative: Patient is a 77 year old assigned female at with a history of atrial fib on xarelto, heart failure, and chronic cough presenting to the emergency department today with left shoulder pain after a slip and fall. Patient's physical exam showed limited ROM of the left shoulder secondary to the pain and an obvious left shoulder deformity. Patient's left shoulder x-ray showed an anterior subglenoid dislocation of the humeral head and a mildly displaced fracture of the humeral greater tuberosity. I consulted orthopedics who recommended reduction, sling, then follow up outpatient. Attending physician Dr. Dudley and I performed a reduction at the bed side, without incident. Patient placed in a sling, without incident. Patient's repeat should x-ray showed a successful reduction of the anterior shoulder dislocation and a mildly displaced avulsion fracture of the greater tuberosity. Patient's head, neck, and abdomen/pelvis CTs showed no acute doug process. Patient's left wrist XR showed no acute process. I explained my physical exam findings as well as all test results to the patient and the patient's daughters. I answered all questions asked by the patient and the patient's daughters. I stressed the importance of the patient taking her medication as prescribed. I stressed the importance of the patient following up with her primary care provider and an orthopedic provider. I stressed the importance of the patient returning to the emergency department immediately if her symptoms were to worsen or if she were to develop any dizziness, shortness of breath, difficulty breathing, chest pain, blurry vision, loss of vision, nausea, vomiting, abdominal pain, fever, chills, back pain, or any other complaints. Patient and the patient's daughter verbalized agreement and understanding with this treatment plan and discharge. Differential Diagnosis Differential Diagnoses: The differential diagnosis associated with the presentation includes left humerus fracture, fall Admission/Observation Consideration of admission/observation: Escalation of care including admission/observation considered Patient would have been admitted if reduction was unsuccessful. Consult Healthcare Provider Management of the patient was discussed with: Supervisor Costuming (spoke to the orthopedic team as noted in the MDM portion of this chart) Lab Data [facility] Lab Attestation statement: I reviewed the patient's lab results. Labs: Lab Results 12/15/22 Range/Units 17:43 COVID-19 (KIANA) Negative (Negative) COVID-19 Clin Com See Note Independent Interpretation I performed an independent interpretation of an: Plain X-Ray and CT Scan Interpretation: My interpretation is in agreement with the radiologist's impression of these imaging studies. EXAMINATION: XR SHOULDER , LEFT CLINICAL INFORMATION: Fall COMPARISON: None available at the time of this dictation. TECHNIQUE: Frontal and scapular Y view of the shoulder. FINDINGS:? BONES: There is anterior subglenoid dislocation of the humeral head, there is a fracture of the humeral greater tuberosity. Adjacent clavicle and scapula not well visualized, no gross abnormality. Included adjacent ribs are intact. JOINTS: Anterior subglenoid dislocation of the humeral head. SOFT TISSUE AND INCLUDED LUNG: Normal.? XR/XR shoulder LT min 2V IMPRESSION:? ? *? Anterior subglenoid dislocation of the humeral head. ? *? Mildly displaced Fracture of the humeral greater tuberosity. Dictated By: Carlos Eduardo Lopez MD Signed By: Electronically signed by Carlos Eduardo Lopez MD 12/15/22 1520 EXAMINATION: XR SHOULDER, LEFT CLINICAL INFORMATION: Reduction? COMPARISON: Earlier same day? TECHNIQUE: Two views of the left shoulder. FINDINGS: Successful reduction of the anterior shoulder dislocation. Mildly (5 mm) displaced avulsion fracture of the greater tuberosity. Acromioclavicular joint intact. Soft tissues unremarkable. XR/XR shoulder LT min 2V IMPRESSION: *? Successful reduction of the anterior shoulder dislocation. *? Mildly displaced avulsion fracture of the greater tuberosity. Dictated By: Guy Johnson MD Signed By: Electronically signed by Guy Johnson MD 12/15/22 1656 EXAMINATION: CT ABDOMEN AND PELVIS WITHOUT CONTRAST? CLINICAL INFORMATION: Left hip pain and spine pain? COMPARISON: 09/09/2022 CT abdomen pelvis TECHNIQUE: Multidetector volumetric imaging was performed from the superior aspect of the liver through the pubic symphysis. Sagittal and coronal reformatted images were obtained on the technologist's workstation.? This CT examination was performed using dose optimization techniques as appropriate, variously including the following: *Automated exposure control *Adjustment of mA and/or kV according to patient size (this includes techniques or standardized protocols for targeted exams where dose is matched to indication/reason for exam; i.e. extremities or head) *Use of iterative reconstruction technique DLP: 872 mGy-cm FINDINGS: LUNG BASES: Dependent bibasilar atelectasis.? ABDOMINAL AND PELVIC WALL:? Small fat-containing umbilical hernia.? LIVER AND BILIARY TREE: Unremarkable.? GALLBLADDER: Unremarkable.? PANCREAS: Unremarkable.? SPLEEN: Unremarkable.? ADRENAL GLANDS: Unremarkable.? KIDNEYS AND URETERS: Bosniak 1 benign-appearing bilateral renal cysts, no imaging follow-up recommended.? GASTROINTESTINAL TRACT: Small hiatal hernia. Incidentally noted duodenal diverticulum. Colonic diverticulosis without evidence of diverticulitis normal appendix. VASCULAR: Unremarkable. LYMPH NODES/PERITONEUM: Schmorl's node in the superior endplate of T11 unchanged. FREE FLUID: None. BLADDER: Unremarkable.? PELVIC VISCERA: Myomatous uterus. OSSEOUS STRUCTURES: Postsurgical changes of right total hip arthroplasty. Moderate degenerative changes of the left hip. No acute fracture or dislocation. Levoconvex curvature of the lumbar spine. Mild to level degenerative disc disease. Sclerosis along the right aspect of the sacroiliac joint which could be seen in the setting of osteitis condensans ilii. ? CT/CT abdomen pelvis wo IV con IMPRESSION: 1.? Postsurgical changes of right total hip arthroplasty. Moderate degenerative changes of the left hip. No acute fracture or dislocation. 2.? Sclerosis along the right aspect of the sacroiliac joint which could be seen in the setting of osteitis condensans ilii. Dictated By: Prema Clarke MD Signed By: Electronically signed by Prema Clarke MD 12/15/22 1759 EXAMINATION: ?CT head/brain wo IV con, CT cervical spine wo IV con INDICATION INFORMATION: Reason for Exam fall, pain COMPARISON: MR brain 02/15/2013 TECHNIQUE: Separate noncontrast CT examinations of the head and cervical spine were performed. Coronal and sagittal images were created for each examination at the technologist workstation. This CT examination was performed using dose optimization techniques as appropriate, variously including the following: *Automated exposure control *Adjustment of mA and/or kV according to patient size (this includes techniques or standardized protocols for targeted exams where dose is matched to indication/reason for exam; i.e. extremities or head) *Use of iterative reconstruction technique DLP:? 1878 mGy-cm for the CT head and cervical spine and abdomen and pelvis reported separately FINDINGS: Head: No acute osseous or soft tissue abnormality.? The mastoid air cells and visualized portions of the paranasal sinuses are well aerated. Status post bilateral lens replacements. Degenerative changes of the bilateral temporomandibular joints. There is no evidence of acute intracranial hemorrhage or territorial infarction.? No abnormal mass effect or midline shift is seen.? Miles to white matter differentiation is well preserved. No extra-axial fluid collections are identified. No hydrocephalus. Patchy periventricular and deep white matter hypoattenuation is consistent with mild small vessel ischemic changes. ? Cervical spine: There is no evidence of acute cervical spine fracture. Vertebral bodies remain normal in height.? ? Alignment is maintained.? Multilevel loss of disc space height. No pre- or paravertebral soft tissue abnormality is identified.? Patchy groundglass in the bilateral lung apices may reflect edema or atypical/viral infection.. The thyroid gland is unremarkable. CT/CT cervical spine wo IV con IMPRESSION: ? 1.? No acute intracranial abnormality. ? 2.? No cervical spine fracture or traumatic malalignment. ? 3.? Patchy groundglass in the bilateral lung apices may reflect pulmonary edema or atypical/viral infection. Dictated By: Prema Clarke MD Signed By: Electronically signed by Prema Clarke MD 12/15/22 1719 EXAMINATION: XR WRIST, LEFT CLINICAL INFORMATION: Pain after fall COMPARISON: None available. TECHNIQUE: PA, lateral, and oblique views of the left wrist. FINDINGS: There is a plate and screw devices overlying the proximal portion of the metacarpal of the first digit. Degenerative changes are present at DIP joints most marked in the second digit. Degenerative changes are seen at the triscaphe joint and at the base of the first metacarpal. There is mild narrowing of the radial carpal joint. No acute fractures or dislocations are seen. XR/XR wrist LT 2V IMPRESSION: Degenerative and postsurgical changes as described above. No evidence of an acute injury. Dictated By:Casey Flemingigned Electronically signed by: Casey Fleming MD 12/15/22 1805 Independent Historian Clinical information obtained from an independent historian. History obtained from or confirmed by: EMS and Other (patient's daughters) Critical Care Time Critical Care Time Critical Care Time: Yes Total Critical Care Time: 45 Attestation: I spent 45 minutes of Critical Care Time with this patient. This does not include time spent on separately reported billable procedures. Discharge Plan Discharge Clinical Impression: Fracture, humerus Patient Disposition: Home, Self-Care Instructions: Arm Fracture in Adults (ED), How to Use a Sling (ED), Narcotic Safety (ED), Opioid Safety (ED), Safe Disposal of Opioids (ED) Additional Instructions: Follow up with your primary care provider and an orthopedic provider. Return to the emergency department immediately if your symptoms worsen or if you develop any dizziness, shortness of breath, difficulty breathing, chest pain, blurry vision, loss of vision, nausea, vomiting, abdominal pain, fever, chills, back pain, or any other complaints. Prescriptions: New oxycodone 10 mg tablet 10 mg PO Q6H PRN (Reason: pain) Qty: 7 0RF Rx Instructions: Partial Fill upon patient request. No Action atorvastatin 40 mg tablet 40 mg PO DAILY 90 Days Qty: 90 3RF Jardiance 10 mg tablet 10 mg PO DAILY Qty: 30 5RF carvedilol [Coreg] 12.5 mg tablet 12.5 mg PO BID 90 Days Qty: 180 0RF Rx Instructions: must administer with a meal/food diltiazem HCl [Cardizem CD] 120 mg capsule,extended release 24hr 120 mg PO DAILY 90 Days Qty: 90 1RF Protocol: Hold for SBP/HR < HOLD for SBP < : 90 HOLD for HR < : 60 ipratropium-albuterol 0.5 mg-3 mg(2.5 mg base)/3 mL solution for nebulization 3 ml inhalation Q4-6H PRN (Reason: for wheezing) Qty: 180 0RF coenzyme Q10 100 mg Tablet 100 mg PO DAILY multivitamin Tablet 1 tab PO DAILY magnesium 250 mg Tablet 250 mg PO DAILY cholecalciferol (vitamin D3) [Vitamin D3] 10 mcg (400 unit) Capsule 10 mcg PO DAILY Rx Instructions: patient not sure of her dose vitamin E (dl, acetate) 180 mg (400 unit) Capsule 180 mg PO DAILY ascorbic acid (vitamin C) 500 mg Tablet 500 mg PO DAILY omeprazole 40 mg Capsule,Delayed Release(Dr/Ec) 40 mg PO DAILY furosemide 40 mg Tablet 40 mg PO DAILY Xarelto 20 mg tablet 20 mg PO DAILY@1700 montelukast 10 mg tablet 10 mg PO BEDTIME gabapentin 300 mg capsule 600 mg PO BEDTIME losartan 100 mg tablet 100 mg PO DAILY fexofenadine [Shea Allergy] 180 mg tablet 180 mg PO DAILY meloxicam 15 mg tablet 15 mg PO DAILY turmeric 400 mg capsule 100 mg PO DAILY Referrals: [facility] [place] [facility] [Provider Group] (Call to establish and follow up with an orthopedic provider. ) Yair Huff MD [Primary Care Provider] - Stand Alone Forms: Work/School Release Print Language: Romansh
[2022-12-15] MEDS: Morphine Sulfate 4 MG/ML CARTRIDGE IM (14:28)
--- NOTE | 2022-12-15 14:29 | PC.NURSE ---
Unable to scan med due to access to scanner. Medication witnessed by Jane HOGUE. IM rt deltoid.
[2022-12-15 15:50] VITALS: BP 162/77; PULSE 66; RESP 14; O2SAT 93
[2022-12-15 18:19] LABS: COVID-19 Test Negative (Negative); IDNOW Serial# 08D9AD1C
[2022-12-15 19:27] VITALS: BP 160/90; PULSE 98; RESP 18; TEMP 36.9; O2SAT 94
== END 2022-12-15 19:28 | disposition home or self-care (01) ==
PROVIDERS: Physician Assistant Medical; Emergency Provider Emergency Medicine; PCP Family Medicine
DX: S42.302A Unspecified fracture of shaft of humerus, left arm, initial encounter for closed fracture (principal); S62.102A Fracture of unspecified carpal bone, left wrist, initial encounter for closed fracture; M25.512 Pain in left shoulder; I48.91 Unspecified atrial fibrillation; R05.9 Cough, unspecified; R51.9 Headache, unspecified; M54.2 Cervicalgia; W01.0XXA Fall on same level from slipping, tripping and stumbling without subsequent striking against object, initial encounter; Y93.9 Activity, unspecified; Y92.9 Unspecified place or not applicable; Y99.0 Civilian activity done for income or pay; Z20.822 Contact with and (suspected) exposure to COVID-19; Z20.828 Contact with and (suspected) exposure to other viral communicable diseases; Z79.01 Long term (current) use of anticoagulants; Z79.899 Other long term (current) drug therapy
CPT/HCPCS: 23665; 70450; 72125; 73030; 73100; 74176; 87635; 96372; 99282; 99284; J2270

== ENCOUNTER 2022-12-18 09:49 | Inpatient (IN) | payer OTHER, MEDICARE, SELFPAY ==
--- NOTE | ~2022-12-18 | XR_ITS ---
EXAMINATION: XR PELVIS CLINICAL INFORMATION: Left hip hemiarthroplasty. COMPARISON: Left hip 12/18/2022 TECHNIQUE: AP view of the pelvis. FINDINGS: There is total left hip arthroplasty with prosthetic components in satisfactory alignment. No immediate postoperative changes along the left hip. The the right hip prosthesis is in satisfactory alignment. XR/XR pelvis 1-2V IMPRESSION: New total left hip arthroplasty with prosthetic components in satisfactory alignment. No change in the right hip prosthesis.
--- NOTE | ~2022-12-18 | XR_ITS ---
EXAMINATION: XR CHEST CLINICAL INFORMATION: Pulmonary edema on prior CT. COMPARISON: CT abdomen/pelvis 12/15/2022. Chest radiograph 09/26/2022. TECHNIQUE: 2 views of the chest were obtained. FINDINGS: Stable prominence of the cardiomediastinal silhouette. Prominent epicardial fat pad. Mild bibasilar subsegmental atelectasis. No focal consolidation. No pleural effusion or pneumothorax. No evidence of overt edema. No acute osseous abnormalities. XR/XR chest 2V IMPRESSION: 1. Mild bibasilar subsegmental atelectasis. 2. No evidence of pulmonary edema. 3. No focal consolidation.
--- NOTE | ~2022-12-18 | XR_ITS ---
EXAMINATION: XR SHOULDER, LEFT CLINICAL INFORMATION: Fracture dislocation left shoulder. COMPARISON: Radiographs of the left shoulder done on 12/15/2022. TECHNIQUE: Four views of the left shoulder. FINDINGS: Previously documented displaced avulsion fracture involving the greater tuberosity of the left humerus is reidentified. The glenohumeral as well as acromioclavicular alignments appear intact, unchanged since the most recent prior postreduction radiograph done on 12/15/2022 at 4:04 PM. XR/XR shoulder LT min 2V IMPRESSION: No significant change since the most recent prior post reduction radiograph of the left shoulder done on 12/15/2022 at 4:04 PM.
--- NOTE | ~2022-12-18 | XR_ITS ---
Indication: Fall with groin pain EXAMINATION: Pelvic film, left hip and left hand. 3 views of the left hand demonstrates degenerative changes. No convincing evidence for an acute fracture or dislocation. Single view of the pelvis demonstrates fracture in the left hip. Detail views of left hip demonstrate fracture of the femoral neck. Superior migration of the distal fracture fragment. XR/XR hip LT w PEL1V IMPRESSION: Femoral neck fracture left hip.
--- NOTE | ~2022-12-18 | XR_ITS ---
Indication: Fall with groin pain EXAMINATION: Pelvic film, left hip and left hand. 3 views of the left hand demonstrates degenerative changes. No convincing evidence for an acute fracture or dislocation. Single view of the pelvis demonstrates fracture in the left hip. Detail views of left hip demonstrate fracture of the femoral neck. Superior migration of the distal fracture fragment. XR/XR hand LT min 3V IMPRESSION: Femoral neck fracture left hip.
--- NOTE | 2022-12-18 09:52 | ED_ITS ---
HPI - General Adult General Chief complaint: General Medical Stated complaint: FALL ON THURSDAY, L GROIN/SHOULDER PAIN Time Seen by Provider: 12/18/22 11:23 Source: patient, family, RN notes reviewed and old records reviewed History of Present Illness HPI narrative: 77-year-old female with a past medical history of AFib with RVR on Xarelto, cardiomyopathy, CHF, HTN, pulmonary hypertension, presenting to the ED complaining of continued left shoulder/hand, and left groin/hip pain with inability to ambulate s/p mechanical trip and fall at work on Thursday. Patient seen and treated in our ED after incident was noted to have left shoulder anterior dislocation with humeral greater tuberosity fracture, reduced in the ED. Patient also had multiple x-rays/CT head/C-spine and abdomen/pelvis which was only notable for patchy ground-glass bilateral apices. Denies recurrent or more recent fall, headache, nausea/vomiting, abdominal pain, numbness/tingling Onset (ago): day(s) Related Data Home Medications Medication Instructions Recorded Confirmed gabapentin 300 mg capsule 600 mg PO BEDTIME 05/16/20 12/18/22 montelukast 10 mg tablet 10 mg PO BEDTIME 05/16/20 12/18/22 fexofenadine 180 mg tablet 180 mg PO DAILY 06/21/21 11/03/22 ([facility]) cholecalciferol (vitamin D3) 10 10 mcg PO DAILY 07/28/21 11/03/22 mcg (400 unit) capsule (Vitamin D3) coenzyme Q10 100 mg tablet 100 mg PO DAILY 07/28/21 11/03/22 magnesium 250 mg tablet 250 mg PO DAILY 07/28/21 11/03/22 multivitamin 1 tab PO DAILY 07/28/21 12/18/22 losartan 100 mg tablet 100 mg PO DAILY 02/04/22 12/18/22 meloxicam 15 mg tablet 15 mg PO DAILY 05/06/22 12/18/22 vitamin E (dl, acetate) 180 mg 180 mg PO DAILY 07/28/22 11/03/22 (400 unit) capsule rivaroxaban 20 mg tablet (Xarelto) 20 mg PO DAILY@1700 09/10/22 12/18/22 ascorbic acid (vitamin C) 500 mg 500 mg PO DAILY 09/26/22 11/03/22 tablet furosemide 40 mg tablet 40 mg PO DAILY 09/26/22 12/18/22 omeprazole 40 mg capsule,delayed 40 mg PO DAILY 09/26/22 12/18/22 release turmeric 400 mg capsule 100 mg PO DAILY 11/03/22 11/03/22 spironolactone 25 mg tablet 25 mg PO QAM 12/18/22 12/18/22 Previous Rx's Medication Instructions Recorded atorvastatin 40 mg tablet 40 mg PO DAILY 90 days #90 tabs 03/13/22 empagliflozin 10 mg tablet 10 mg PO DAILY #30 tabs 09/30/22 (Jardiance) carvedilol 12.5 mg tablet (Coreg) 12.5 mg PO BID 90 days #180 tabs 10/22/22 diltiazem HCl 120 mg 120 mg PO DAILY 90 days #90 caps 10/27/22 capsule,extended release 24 hr (Cardizem CD) ipratropium 0.5 mg-albuterol 3 mg 3 ml inhalation Q4-6H PRN for 12/02/22 (2.5 mg base)/3 mL nebulization wheezing #180 mL soln oxycodone 10 mg tablet 10 mg PO Q6H PRN pain #7 tabs 12/15/22 Allergies Allergy/AdvReac Type Severity Reaction Status Date / Time aspirin [ASPIRIN] Allergy Unknown RASH Verified 12/18/22 10:04 Sulfa (Sulfonamide Allergy Unknown RASH Verified 12/18/22 10:04 Antibiotics) [SULFA (SULFONAMIDE ANTIBIOTICS)] flecainide AdvReac Intermediate Dizziness Verified 12/18/22 10:04 amiodarone AdvReac Mild Dizziness Verified 12/18/22 10:04 adhesives AdvReac Unknown Uncoded 09/26/22 17:01 Review of Systems Review of Systems: Constitutional:No Fever, No Chills, No Fatigue, No Malaise Eyes: No Eye Pain, No Swelling, No Redness, No Vision Changes Cardiovascular: No Chest Pain, No SOB, No Edema, No Palpitations Respiratory: No Cough, No Sputum, No Dyspnea Gastrointestinal: No Nausea, No Vomiting, No Diarrhea, No Constipation, No Abdominal pain Genitourinary: No Dysuria, No Urinary Frequency, No Hematuria, No Urinary Incontinence/retention Musculoskeletal: + joint pain, No Myalgias, + Joint Swelling Skin: No Skin Lesions, No rash Neuro: No Weakness, No Numbness, No Paresthesias, No Loss of Consciousness, No Dizziness, No Headache Yes all other systems are reviewed and are negative Constitutional: Constitutional: Reports as per [facility] Past Medical History Attestation statement: The following information was validated with the patient. Source: old records reviewed Medical History Atrial fibrillation with RVR Cardiomyopathy Chronic heart failure with preserved ejection fraction (HFpEF) Diastolic dysfunction History of cardiomyopathy History of cardioversion HTN (hypertension) NSTEMI (non-ST elevated myocardial infarction) Paroxysmal atrial fibrillation Paroxysmal atrial fibrillation Pulmonary hypertension Pulmonary hypertension Surgical History History of back surgery Hx of cardiac cath Hx of hand surgery Hx of total hip arthroplasty S/P cardiac catheterization Family History Family History Father Cancer Mother Stroke Brother Atrial fibrillation Sister Cardiovascular disease Atrial fibrillation Social History Social History Household Members: None Housing: House Do you presently have visiting nurse or other home services: No Unable to assess alcohol history related to: Unknown Alcohol intake: never Patient Tobacco Use Status: Never used Tobacco Second Hand Smoke Exposure: No Advance Directives: Yes Advance Directives Information Provided: Yes Advance Directives on File: No service: No Current occupational status: retired Physical Exam ED Vital Signs: Vital Signs - 24 hr 12/18/22 10:02 Temperature 98.5 F Pulse Rate 69 Respiratory Rate 17 Blood Pressure 94/47 L Pulse Oximetry 94 Oxygen Delivery Method Room Air BMI result Body Mass Index 31.1 Const Other: Uncomfortable General: cooperative, healthy appearing, no acute distress, alert and awake Orientation/consciousness: patient oriented x3 Limitations: no limitations HENMT Head: Yes normal to inspection and Yes atraumatic Ears: hearing grossly normal bilaterally General nose exam: Normal external nose present Face and sinus: Yes normal facial exam Eyes General: appearance normal, both eyes and all related structures EOM: EOMs intact bilaterally Neck Other: No midline cervical spinous tenderness Neck: Yes normal visual inspection and Yes no meningeal signs Resp Effort & Inspection: normal respiratory effort and no respiratory distress Cardio Rate: regular rate Heart sounds: S1 normal heart sound present and S2 normal heart sound present Peripheral pulses: Peripheral pulses 2+ throughout GI Inspection: Yes normal to inspection Palpation (GI): Soft to palpation, nontender, no guarding and not rigid Back/Spine/Pelvis Other: No midline cervical/thoracic/lumbar spinous tenderness/step-off or deformity Skin Rashes: no rashes Wounds: no wounds Neuro General: patient oriented x3, tone normal and no meningeal signs Extrem Other: Left shoulder/clavicle with healing ecchymosis and mild swelling. Mild tender ness. + left hand with diffuse ecchymosis and mild swelling. Nontender. Limited ROM to thumb (chronic per patient), wrist nontender. No snuffbox tenderness. No erythema/warmth Left hip without noted deformity. Tender to palpation to lateral aspect and groin. Limited active and passive ROM secondary to pain. NV intact distally Course Course Course Narrative: 1125--XR chest 2V IMPRESSION: 1.? Mild bibasilar subsegmental atelectasis. 2.? No evidence of pulmonary edema. 3.? No focal consolidation. XR hand LT min 3V/XR hip LT w PEL1V IMPRESSION: Femoral neck fracture left hip. > will consult Orthopedics, Dr. Vizcarra >> plan is for medical admission. Patient is to hold Xarelto Medications Administered Discontinued Medications Generic Name Dose Route Start Last Admin Trade Name Freq PRN Reason Stop Dose Admin Morphine Sulfate 15 mg 12/18/22 10:23 12/18/22 11:02 Morphine Sulfate Immed Release 15 Mg Tablet PO 12/18/22 10:24 15 mg ONCE ONE Administration Medical Decision Making Medical Decision Making [facility] Narrative: 77-year-old female with a past medical history of AFib with RVR on Xarelto, cardiomyopathy, CHF, HTN, pulmonary hypertension, presenting to the ED complaining of continued left shoulder/hand, and left groin/hip pain with inabil ity to ambulate s/p mechanical trip and fall at work on Thursday. On exam BP soft, appears in pain, any ED, physical exam a patient in sling. + notable left hip / groin tenderness with limited ROM. Imaging reviewed from prior visit. Concern for subacute fracture, although CT abdomen/pelvis without bony abnormality. No evidence of cellulitis. Low suspicion for intra-abdominal pathology Plan: X-rays, pain control, PT/case management Please refer to course for remaining clinical decision making, interpretation of labs/imaging results, and discussions with consultants and/or family members. Differential Diagnosis Differential Diagnoses: The differential diagnosis associated with the presentation includes As above Admission/Observation Consideration of admission/observation: Escalation of care including admission/observation considered Consult Healthcare Provider Management of the patient was discussed with: Post Closer Lab Data MDM Lab Attestation statement: I reviewed the patient's lab results. 12/18/22 11:48 12/18/22 11:48 Labs: Lab Results 12/18/22 12/18/22 12/18/22 Range/Units 11:00 11:48 11:48 WBC 11.6 H (4.8-10.8) X10*3/uL RBC 3.72 L (4.20-5.50) X10*6/uL Hgb 12.2 (12.0-16.0) g/dl Hct 36.3 L (37.0-47.0) % MCV 97.6 (80.0-98.0) fL MCH 32.8 (27.0-33.0) pg MCHC 33.6 (31.0-35.0) g/dl RDW 11.9 (11.0-16.0) % Plt Count 115 L D (160-400) X10*3/uL MPV 10.0 (9.4-12.3) fL Immature Gran % (Auto) 0.7 H (0.0-0.4) % Neut % (Auto) 82.4 H (45-73) % Lymph % (Auto) 5.4 L (20-40) % Pierce % (Auto) 8.6 (2-11) % Eos % (Auto) 2.5 (0-4) % Baso % (Auto) 0.4 (0-2) % Lymph # (Auto) 0.6 L (1.2-4.9) X10*3/uL Pierce # (Auto) 1.0 (0.1-1.2) X10*3/uL Eos # (Auto) 0.3 (0.0-0.4) X10*3/uL Baso # (Auto) 0.1 (0.0-0.2) X10*3/uL Abs Immat Gran (auto) 0.08 H (0.00-0.03) X10*3/uL Absolute Neuts (auto) 9.5 H (2.0-8.3) x10*3/uL Absolute Nucleated RBC 0.000 (0.0-0.012) X10*3/uL Nucleated RBC % (auto) 0.0 (0.0-0.2) /100WBC PT 15.8 H (10.0-13.1) SEC INR 1.4 H (0.9-1.1) COVID-19 ([facility]) Negative (Negative) COVID-19 Clin Com See Note Radiology Impression Discussion of test interpretation with radiology: I have reviewed the radiologist's reading. External Record Review External record reviewed: Inpatient record, Office record, Outpatient record, Prior outpatient labs, Prior outpatient radiology, Primary care record and Outside ED record Tests considered The following testing was considered but not selected: As above Discharge Plan Discharge Clinical Impression: Femoral neck fracture Patient Disposition: Admitted As Inpatient
[2022-12-18 10:02] VITALS: BP 94/47; PULSE 69; RESP 17; TEMP 36.9; O2SAT 94; BMI 31.1
[2022-12-18 10:03] VITALS: BP 119/93; PULSE 70; O2SAT 94
[2022-12-18] MEDS: Morphine Sulfate Immed Release 15 MG TABLET PO (11:02)
--- NOTE | 2022-12-18 11:19 | ECG_ITS ---
Test Reason : Clearance Blood Pressure : / mmHG Vent. Rate : 064 BPM Atrial Rate : 064 BPM P-R Int : 158 ms QRS Dur : 086 ms QT Int : 416 ms P-R-T Axes : 077 028 008 degrees QTc Int : 429 ms Normal sinus rhythm Normal ECG When compared with ECG of 26-SEP-2022 17:23, Sinus rhythm has replaced Atrial fibrillation Vent. rate has decreased BY 53 BPM Nonspecific T wave abnormality now evident in Anterior leads Referred By: Bri Carpio Electronically Signed By:QUANG JOLLY
[2022-12-18 11:26] LABS: COVID-19 Test Negative (Negative); IDNOW Serial# BCCEAD1C
[2022-12-18 11:55] LABS: MANUAL DIFF FLAG NO
[2022-12-18 12:00] LABS: Basophils Absolute Auto 0.1 X10*3/uL (0.0-0.2); Basophils Percent Auto 0.4 % (0-2); Eosinophils Absolute Auto 0.3 X10*3/uL (0.0-0.4); Eosinophils Percent Auto 2.5 % (0-4); Hematocrit 36.3 % (37.0-47.0); Hemoglobin 12.2 g/dl (12.0-16.0); Imm Gran Abs Auto 0.08 X10*3/uL (0.00-0.03); Imm Gran Pct Auto 0.7 % (0.0-0.4); Lymphocytes Absolute Auto 0.6 X10*3/uL (1.2-4.9); Lymphocytes Percent Auto 5.4 % (20-40); Mean Corpuscular HGB Conc 33.6 g/dl (31.0-35.0); Mean Corpuscular Hemoglobin 32.8 pg (27.0-33.0); Mean Corpuscular Volume 97.6 fL (80.0-98.0); Monocytes Percent Auto 8.6 % (2-11); Neutrophils Absolute Auto 9.5 x10*3/uL (2.0-8.3); Neutrophils Percent Auto 82.4 % (45-73); Platelet Count 115 X10*3/uL (160-400); Red Blood Count 3.72 X10*6/uL (4.20-5.50); Red Cell Distribution Width 11.9 % (11.0-16.0); White Blood Count 11.6 X10*3/uL (4.8-10.8)
[2022-12-18 12:06] LABS: INTERNATIONAL NORM RATIO 1.4 (0.9-1.1); Prothrombin Time 15.8 SEC (10.0-13.1)
[2022-12-18 12:13] LABS: Anion Gap 13 (12-20)
[2022-12-18 12:15] LABS: Alanine Aminotransferase 15 U/L (0-31); Albumin Level 3.7 g/dL (3.5-5.0); Alkaline Phosphatase 57 U/L (39-117); Aspartate Amino Transferase 23 U/L (5-31); Bilirubin Direct 0.5 mg/dL (0.0-0.5); Bilirubin Total 1.9 mg/dL (0.0-1.0); Blood Urea Nitrogen 40 mg/dL (9-16); Calcium 8.6 mg/dL (8.4-10.2); Carbon Dioxide 22 mmol/L (22-29); Chloride 110 mmol/L (96-108); Creatinine Clr Calc Pharmacy 38.3; Estimated Glomerular Filt Rate 40; Glucose Random 120 mg/dL (60-115); Potassium 4.7 mmol/L (3.3-5.1); Sodium 140 mmol/L (135-145); Total Protein 6.5 g/dL (6.5-8.0)
--- NOTE | 2022-12-18 12:48 | PHA.MEDREC ---
Pharmacy Consult ? Medication Reconciliation Pharmacy has completed the medication reconciliation. Patient had list of medications that match claim history. Deana GomezD
--- NOTE | 2022-12-18 13:07 | P.HPHOSP_ITS ---
History of Present Illness Date of Service: 12/18/22 Attending physician on admission: Felipe Jalloh Chief Complaint: Groin and shoulder pain after mechanical fall Pt is a 77-year-old female with a PMH significant for?paroxysmal AFib on Xarelto, HFpEF, essential HTN, moderate persistent asthma, and pulmonary hypertension who presents to the ED with?continued pain in her left shoulder/hand and left groin/hip after a slip and fall at work two days prior. 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 like a piece of squash. Pt fell on her left side and was seen and evaluated in our ED 5 03/29/2023. Patient was found to have a l eft shoulder anterior dislocation with humeral greater tuberosity fracture which was reduced in the ED. patient had multiple imaging done including x-rays of shoulder CT of head/C-spine, and CT of abdomen/pelvis. CT of abdomen and pelvis showed moderate degenerate changes of left hip with no acute fracture or dislocation. Patient was discharged home. Patient states that she has not been able to bear weight on her left leg since her fall and been unable to ambulate. Has had intense pain in both her left shoulder, hand, and hip. Repeat imaging today with x-ray of left hip showed acute left hip fracture. Patient denies any additional history of fall since discharge. Patient has essentially been bed- bound since then. Patient denies numbness or tingling in her extremities. No increasing edema of her lower legs. Denies any change to her bowel or bladder habits. Patient denies fever, chills, nausea, vomiting. No abdominal pain. Denies chest pain/pressure, palpitations. No shortness of breath. In the ED patient was afebrile the slightly hypotensive at 94/47, satting at 94% on RA. Labs were significant for mild leukocytosis of 11.6, platelets of 115, chronically elevated BUN of 40, creatinine 1.3, chronically elevated bilirubin of 1.9. Electrolytes normal. CXR from today showed mild bibasilar subsegmental atelectasis but no evidence of pulmonary edema or focal consolidation. X-ray of the left and the showed degenerative changes with no convincing evidence for an acute fracture or dislocation. X-ray of left hip showed femoral neck fracture. EKG demonstrated normal sinus rhythm with nonspecific T-wave inversions in III and V1. Pt was treated with morphine. Pt will be admitted to the hospital for surgical repair of left hip fracture. Review of Systems Review of Systems: Left shoulder pain Left hand pain Left hip pain Patient denies numbness and tingling in extremities No change in bowel or bladder habits Denies fever, chills, nausea, vomiting, abdominal pain No chest pain/pressure, palpitations Denies shortness of breath Yes all other systems are reviewed and are negative [facility] Medical History Atrial fibrillation with RVR Cardiomyopathy Chronic heart failure with preserved ejection fraction (HFpEF) Diastolic dysfunction History of cardiomyopathy History of cardioversion HTN (hypertension) NSTEMI (non-ST elevated myocardial infarction) Paroxysmal atrial fibrillation Paroxysmal atrial fibrillation Pulmonary hypertension Pulmonary hypertension Family History Father Cancer Mother Stroke Brother Atrial fibrillation Sister Cardiovascular disease Atrial fibrillation Surgical History History of back surgery Hx of cardiac cath Hx of hand surgery Hx of total hip arthroplasty S/P cardiac catheterization Social History Household Members: None Housing: House Do you presently have visiting nurse or other home services: No Unable to assess alcohol history related to: Unknown Alcohol intake: never Patient Tobacco Use Status: Never used Tobacco Smoked in Last 30 Days: No Patient Interested in Nicotine Replacement: No Patient Given Instructions on How to Stop Smoking: No Second Hand Smoke Exposure: No Use of substances other than those prescribed or required for medical reasons: No Currently Displaying Signs/Symptoms of Drug Intoxication Withdrawal: No Any prior treatment program specific to substance use: No Have you been hit, kicked, punched, or otherwise hurt by someone within the past year? If so, by whom?: No Do you feel safe in your current relationship?: No Current Relationship Is there a partner from a previous relationship who is making you feel unsafe now?: No Are you made to feel afraid or neglected: No Advance Directives: Yes Advance Directives Information Provided: Yes Advance Directives on File: No Advance Directives Date on File: 12/18/22 Do you have thoughts of harming others: None Do you have a plan to hurt others: No Plan Recently lost weight without trying: Unsure Eating poorly because of decreased appetite: Yes Nutrition Risks: No Nutritional Risk Patient : No : No Poor oral hygiene: No service: No Current occupational status: retired [employer] Allergies Allergy/AdvReac Type Severity Reaction Status Date / Time aspirin [ASPIRIN] Allergy Unknown RASH Verified 12/18/22 10:04 Sulfa (Sulfonamide Allergy Unknown RASH Verified 12/18/22 10:04 Antibiotics) [SULFA (SULFONAMIDE ANTIBIOTICS)] flecainide AdvReac Intermediate Dizziness Verified 12/18/22 10:04 amiodarone AdvReac Mild Dizziness Verified 12/18/22 10:04 adhesives AdvReac Unknown Uncoded 09/26/22 17:01 Home Medications Medication Instructions Recorded Confirmed Last Taken Type gabapentin 300 mg capsule 600 mg PO BEDTIME 05/16/20 12/18/22 12/17/22 History montelukast 10 mg tablet 10 mg PO BEDTIME 05/16/20 12/18/22 12/17/22 History fexofenadine 180 mg tablet 180 mg PO DAILY 06/21/21 12/18/22 12/18/22 History (Shea Allergy) coenzyme Q10 100 mg tablet 100 mg PO DAILY 07/28/21 12/18/22 12/18/22 History magnesium 250 mg tablet 250 mg PO BEDTIME 07/28/21 12/18/22 12/17/22 History multivitamin 1 tab PO DAILY 07/28/21 12/18/22 12/18/22 History losartan 100 mg tablet 100 mg PO DAILY 02/04/22 12/18/22 12/18/22 History meloxicam 15 mg tablet 15 mg PO DAILY 05/06/22 12/18/22 12/18/22 History vitamin E (dl, acetate) 180 mg 180 mg PO DAILY 07/28/22 12/18/22 12/18/22 History (400 unit) capsule rivaroxaban 20 mg tablet (Xarelto) 20 mg PO DAILY@1700 09/10/22 12/18/22 12/17/22 History ascorbic acid (vitamin C) 500 mg 500 mg PO DAILY 09/26/22 12/18/22 12/18/22 History tablet furosemide 40 mg tablet 40 mg PO DAILY 09/26/22 12/18/22 12/18/22 History omeprazole 40 mg capsule,delayed 40 mg PO BEDTIME 09/26/22 12/18/22 12/17/22 History release turmeric 400 mg capsule 100 mg PO DAILY@1200 11/03/22 12/18/22 12/18/22 History cholecalciferol (vitamin D3) 50 50 mcg PO DAILY 12/18/22 12/18/22 12/18/22 History mcg (2,000 unit) capsule spironolactone 25 mg tablet 25 mg PO QAM 12/18/22 12/18/22 12/18/22 History Physical Exam Vital Signs and Narrative: Vital Signs: Last Vital Signs Temp 98.5 F 12/18/22 10:02 Pulse 69 12/18/22 10:02 Resp 17 12/18/22 10:02 BP 94/47 L 12/18/22 10:02 Pulse Ox 94 12/18/22 10:02 O2 Del Method Room Air 12/18/22 10:02 BMI result Body Mass Index 31.1 Constitutional: Alert, uncomfortable, in pain, in no acute distress. Mental Status: Oriented to person, place and time. Eyes: Pupils are equal, round, and reactive to light. Ear, Nose, and Throat: Oropharynx clear, mucous membranes dry. Ears and nose without deformities. Trachea midline. Respiratory: Clear to auscultation bilaterally. No wheezing, rales, or rhonchi. Cardiovascular: S1, S2 regular. No murmurs, rubs, or gallops. Gastrointestinal: Abdomen soft, non-tender, non-distended. Normal bowel sounds. Neurologic: Cranial nerves II-XII are grossly intact bilaterally. No focal neurological deficits. Moves all extremities spontaneously. Sensation to light touch of extremities bilaterally intact. Skin: Bruising of left hand from wrist to fingers noted, dorsal aspect worse than palmar. Musculoskeletal: Tenderness to lateral aspect of left hip. Active and passive ROM limited d/t pain. Left shoulder tenderness. Left arm in sling. Extremities: No edema. Capillary refill of extremities WNL. Psychiatric: Normal mood and affect. Results Labs 12/18/22 11:48 12/18/22 11:48 Labs: Laboratory Results - last 24 hr 12/18/22 12/18/22 12/18/22 11:00 11:48 11:48 MCV 97.6 MCH 32.8 MCHC 33.6 RDW 11.9 Plt Count 115 L D MPV 10.0 Immature Gran % (Auto) 0.7 H Neut % (Auto) 82.4 H Lymph % (Auto) 5.4 L [place] % (Auto) 8.6 Eos % (Auto) 2.5 Baso % (Auto) 0.4 Lymph # (Auto) 0.6 L [place] # (Auto) 1.0 Eos # (Auto) 0.3 Baso # (Auto) 0.1 Abs Immat Gran (auto) 0.08 H Absolute Neuts (auto) 9.5 H Absolute Nucleated RBC 0.000 Nucleated RBC % (auto) 0.0 PT 15.8 H INR 1.4 H Anion Gap Estim Creat Clear Calc Estimated GFR Random Glucose Calcium Total Bilirubin Direct Bilirubin AST ALT Alkaline Phosphatase Total Protein Albumin COVID-19 ([facility]) Negative COVID-19 Clin Com See Note 12/18/22 11:48 MCV MCH MCHC RDW Plt Count MPV Immature Gran % (Auto) Neut % (Auto) Lymph % (Auto) [place] % (Auto) Eos % (Auto) Baso % (Auto) Lymph # (Auto) [place] # (Auto) Eos # (Auto) Baso # (Auto) Abs Immat Gran (auto) Absolute Neuts (auto) Absolute Nucleated RBC Nucleated RBC % (auto) PT INR Anion Gap 13 Estim Creat Clear Calc 38.3 Estimated GFR 40 Random Glucose 120 H Calcium 8.6 Total Bilirubin 1.9 H Direct Bilirubin 0.5 AST 23 ALT 15 Alkaline Phosphatase 57 Total Protein 6.5 Albumin 3.7 COVID-19 ([facility]) COVID-19 Clin Com Imaging Radiologist's Impressions: Impressions Chest X-Ray 12/18/22 10:40 IMPRESSION: 1. Mild bibasilar subsegmental atelectasis. 2. No evidence of pulmonary edema. 3. No focal consolidation. Hand X-Ray 12/18/22 10:40 IMPRESSION: Femoral neck fracture left hip. Hip/Pelvis X-Ray 12/18/22 10:40 IMPRESSION: Femoral neck fracture left hip. Assessment and Plan (1) Femoral neck fracture: Status: Acute Plan Pt is a 77-year-old female with a PMH significant for?paroxysmal AFib on Xarelto, HFpEF, essential HTN, moderate persistent asthma, and pulmonary hypertension who presents to the ED with?continued pain in her left shoulder/hand and left groin/hip after a slip and fall at work two days prior. Pt will be admitted to the hospital for surgical repair of left hip fracture. Left hip fracture CT of abdomen/pelvis 12/15/2022 from no acute fracture or dislocation of left hip, but x-ray of left hip on 12/18/2022 found acute left hip fracture Analgesics for pain management: Tylenol 650 t.i.d., IV morphine p.r.n. Get type and screen Hold Xarelto Orthopedic consult, plan of performing surgery in the morning NPO after midnight Pneumatic boots for DVT prophylaxis Elevated creatinine Patient's creatinine elevated at 1.30, up from 1.05 at baseline Patient will receive 1 L IVF HFpEF Not in acute exacerbation Patient will receive 1L IVF d/t elevated creatinine Will hold furosemide, spironolactone for now d/t soft BP Resume diuretics when BP allows Paroxysmal AFib Patient with long history of AFib with PMH of 9 cardioversions and 3 of lesions; patient with appointment to get pacemaker Continue carvedilol Hold Xarelto due to impending surgery Moderate persistent asthma Continue home inhalers DuoNebs p.r.n. Patient on home CPAP at night, does not use CPAP when in the hospital HTN BP a little soft, hold antihypertensives Resume antihypertensives as BP warrants HLD Continue statin GERD Continue omeprazole COPD Not in acute exacerbation Continue home inhalers Full Code Attending:?Dr. Jalloh DVT Prophylaxis: Pneumatic boots Pt will require a hospitalization of at least two nights for surgical treatment of?left hip fracture. Time Spent With Patient Time: Total time managing care of this patient today ____ minutes. Quality Stroke Does the patient have a stroke diagnosis?: No VTE Prior VTE?: No VTE Risk Level:: Medical - moderate - high VTE Device Contraindication: N/A - Device Ordered VTE Drug Contraindication: Treatment Not Indicated
[2022-12-18 13:31] VITALS: BP 129/57; PULSE 67; RESP 16; TEMP 36.8; O2SAT 95
--- NOTE | 2022-12-18 13:35 | PC.NURSE ---
patient brought to overflow from ED bed 20, patient arrived a&ox3, daughter at bedside requesting to speak with patient advocate, Binta Beltran was contacted and has arrived to speak with the family. Daughter is concerned over a missed left hip fracture from her fall on thursday. Patient has left arm fracture patient has + csm/pulses, noted ecchymosis to left hand/forearm, pt also has a new diagnosis today of left hip fracture as noted on repeat imaging. pt has + csm/pulses to LLE. pt c/o 05/19 pain- pt positioned to comfort- ice applied and hospitalist at bedside and will put in orders for medication, pure wick placed, call lion within reach, will continue to monitor.
[2022-12-18] MEDS: Docusate Sodium 100 MG CAPSULE PO ×2 (14:23→21:04)
[2022-12-18] MEDS: Acetaminophen 325 MG TABLET 650 MG PO ×2 (14:23→21:04)
[2022-12-18] MEDS: ondansetron HCL 4 MG/2 ML VIAL IVPUSH (14:23)
--- NOTE | 2022-12-18 14:45 | MHC.CM.ED ---
Pt admitted with femoral neck fracture left hip s/p fall. 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 D/C pending hospital course and further care, but anticipating STR. BLS/Yusef to transport. HCP on file and verified that Steven is , Lina and Lucretia are active. PCP: Yair Epstein Vax: x 4 pfizer
[2022-12-18] MEDS: Morphine Sulfate 4 MG/ML CARTRIDGE IVPUSH ×2 (14:46→21:03)
[2022-12-18] MEDS: Lactated Ringers 1,000 ML 999 ML IV (14:47)
--- NOTE | 2022-12-18 14:54 | PC.NURSE ---
patient medicated for pain and ivf started per order
[2022-12-18 15:48] VITALS: BP 128/60; PULSE 78; RESP 17; TEMP 36.6; O2SAT 94
[2022-12-18 19:34] VITALS: BP 119/58; PULSE 73; RESP 17; TEMP 36.5; O2SAT 95
[2022-12-18] MEDS: NaPROXEN 500 MG TABLET PO (21:04)
[2022-12-18] MEDS: Omeprazole 40 MG CAPSULE.DR PO (21:04)
[2022-12-18] MEDS: carvediloL 12.5 MG TABLET PO (21:05)
[2022-12-18] MEDS: Gabapentin 300 MG CAPSULE 600 MG PO (21:05)
[2022-12-18] MEDS: Magnesium Oxide 400 MG TABLET 200 MG PO (21:05)
[2022-12-18] MEDS: Montelukast Sodium 10 MG TABLET PO (21:11)
[2022-12-18] MEDS: 0.9 % Sodium Chloride Flush 3 ML SYRINGE IVFLUSH (21:12)
--- NOTE | 2022-12-18 21:58 | MHC.PIE ---
p; no output noted with purwick, pt reports full bladder but unable to urinate. bladder scanned for 484. note; pt preop lt hip fx in morning i; dr hardwick notified; new order johnson cath now e; will cont to monitor
[2022-12-19] VITALS (16 sets, daily range): BP systolic 107–159; BP diastolic 53–78; PULSE 61–71; RESP 12–20; TEMP 36.1–37.2; O2SAT 90–98
[2022-12-19] MEDS: Acetaminophen 325 MG TABLET 650 MG PO ×2 (06:11→20:48)
[2022-12-19 06:14] LABS: Hemoglobin 10.8 g/dl (12.0-16.0); Mean Corpuscular HGB Conc 31.8 g/dl (31.0-35.0); Mean Corpuscular Hemoglobin 32.3 pg (27.0-33.0); Mean Corpuscular Volume 101.8 fL (80.0-98.0); Mean Platelet Volume 9.5 fL (9.4-12.3); Platelet Count 142 X10*3/uL (160-400); Red Blood Count 3.34 X10*6/uL (4.20-5.50); Red Cell Distribution Width 11.8 % (11.0-16.0); White Blood Count 7.3 X10*3/uL (4.8-10.8)
[2022-12-19] MEDS: Morphine Sulfate 4 MG/ML CARTRIDGE IVPUSH (06:14)
[2022-12-19 06:31] LABS: Anion Gap 11 (12-20); Blood Urea Nitrogen 37 mg/dL (9-16); Calcium 8.3 mg/dL (8.4-10.2); Carbon Dioxide 25 mmol/L (22-29); Chloride 108 mmol/L (96-108); Creatinine Clr Calc Pharmacy 49.4; Estimated Glomerular Filt Rate 53; Glucose Random 123 mg/dL (60-115); Potassium 4.3 mmol/L (3.3-5.1); Sodium 140 mmol/L (135-145)
--- NOTE | 2022-12-19 07:43 | PM.CNOR ---
History of Present Illness HPI Consult date: 12/19/22 Chief complaint: l hip fracture Narrative: Ms. Meeks is a 77-year-old female with a past medical history of AFib with RVR on Xarelto, cardiomyopathy, CHF, HTN, pulmonary hypertension, presenting to the ED complaining of continued left shoulder/hand, and left groin/hip pain with inability to ambulate s/p mechanical trip and fall at work on Thursday.?She was seen in the ED on Thursday after her initial fall and was found to have a left proximal humerus fracture dislocation. This was reduced in the ED. She was complaining of left hip pain as well. A CT scan was obtained and read there was no comment about a fracture. She was discharged home. She was ambulating WBAT while at home. [facility] Past Medical History Medical History Atrial fibrillation with RVR Cardiomyopathy Chronic heart failure with preserved ejection fraction (HFpEF) Diastolic dysfunction History of cardiomyopathy History of cardioversion HTN (hypertension) NSTEMI (non-ST elevated myocardial infarction) Paroxysmal atrial fibrillation Paroxysmal atrial fibrillation Pulmonary hypertension Pulmonary hypertension Family History Family History Father Cancer Mother Stroke Brother Atrial fibrillation Sister Cardiovascular disease Atrial fibrillation Surgical History Surgical History History of back surgery Hx of cardiac cath Hx of hand surgery Hx of total hip arthroplasty S/P cardiac catheterization Social History Social History Household Members: None Housing: House Do you presently have visiting nurse or other home services: No Unable to assess alcohol history related to: Unknown Alcohol intake: never Patient Tobacco Use Status: Never used Tobacco Smoked in Last 30 Days: No Patient Interested in Nicotine Replacement: No Patient Given Instructions on How to Stop Smoking: No Second Hand Smoke Exposure: No Use of substances other than those prescribed or required for medical reasons: No Currently Displaying Signs/Symptoms of Drug Intoxication Withdrawal: No Any prior treatment program specific to substance use: No Have you been hit, kicked, punched, or otherwise hurt by someone within the past year? If so, by whom?: No Do you feel safe in your current relationship?: No Current Relationship Is there a partner from a previous relationship who is making you feel unsafe now?: No Are you made to feel afraid or neglected: No Advance Directives: Yes Advance Directives Information Provided: Yes Advance Directives on File: No Advance Directives Date on File: 12/18/22 Do you have thoughts of harming others: None Do you have a plan to hurt others: No Plan Recently lost weight without trying: Unsure Eating poorly because of decreased appetite: Yes Nutrition Risks: No Nutritional Risk Patient : No : No Poor oral hygiene: No service: No Current occupational status: retired Meds Allergies Allergy/AdvReac Type Severity Reaction Status Date / Time aspirin [ASPIRIN] Allergy Unknown RASH Verified 12/18/22 10:04 Sulfa (Sulfonamide Allergy Unknown RASH Verified 12/18/22 10:04 Antibiotics) [SULFA (SULFONAMIDE ANTIBIOTICS)] flecainide AdvReac Intermediate Dizziness Verified 12/18/22 10:04 amiodarone AdvReac Mild Dizziness Verified 12/18/22 10:04 adhesives AdvReac Unknown Uncoded 09/26/22 17:01 Active Medications: Current Medications Acetaminophen (Acetaminophen 325 Mg Tablet) 650 mg PO Q8H [facility] Last Admin: 12/19/22 06:11 Dose: 650 mg Albuterol/Ipratropium (Albuterol/Iprat 2.5/0.5mg 3 Ml Ampul.Neb) 3 ml INHALE Q4H PRN PRN Reason: for wheezing Atorvastatin Calcium (Atorvastatin Calcium 40 Mg Tablet) 40 mg PO DAILY [facility] Carvedilol (Carvedilol 12.5 Mg Tablet) 12.5 mg PO BID [facility]; Protocol Last Admin: 12/18/22 21:05 Dose: 12.5 mg Diltiazem HCl (Diltiazem Hcl Cd 120 Mg Cap.Er.Deg) 120 mg PO DAILY [facility]; Protocol Docusate Sodium (Docusate Sodium 100 Mg Capsule) 100 mg PO BID [facility] Last Admin: 12/18/22 21:04 Dose: 100 mg Empagliflozin (Empagliflozin 10 Mg Tablet) 10 mg PO DAILY [facility] Gabapentin (Gabapentin 300 Mg Capsule) 600 mg PO BEDTIME [facility] Last Admin: 12/18/22 21:05 Dose: 600 mg Loratadine (Loratadine 10 Mg Tablet) 10 mg PO DAILY [facility] Magnesium Oxide (Magnesium Oxide 400 Mg Tablet) 200 mg PO BEDTIME [facility] Last Admin: 12/18/22 21:05 Dose: 200 mg Montelukast Sodium (Montelukast Sodium 10 Mg Tablet) 10 mg PO BEDTIME [facility] Last Admin: 12/18/22 21:11 Dose: 10 mg Morphine Sulfate (Morphine Sulfate 4 Mg/Ml Cartridge) 4 mg IVPUSH Q4H PRN; Protocol PRN Reason: Pain, Severe (Pain Scale 7-10) Last Admin: 12/19/22 06:14 Dose: 4 mg Multivitamins/Vitamin C (Multivitamin Tablet) 1 tab PO DAILY [facility] Naproxen (Naproxen 500 Mg Tablet) 500 mg PO BID [facility] Last Admin: 12/18/22 21:04 Dose: 500 mg Omeprazole (Omeprazole 40 Mg Capsule.Dr) 40 mg PO BEDTIME [facility] Last Admin: 12/18/22 21:04 Dose: 40 mg Ondansetron HCl (Ondansetron Hcl 4 Mg/2 Ml Vial) 4 mg IVPUSH Q8H PRN PRN Reason: Nausea and Vomiting Last Admin: 12/18/22 14:23 Dose: 4 mg Sodium Chloride (0.9 % Sodium Chloride Flush 3 Ml Syringe) [facility] Last Admin: 12/18/22 21:12 Dose: 3 ml Home Medications Medication Instructions Recorded Confirmed Last Taken Type gabapentin 300 mg capsule 600 mg PO BEDTIME 05/16/20 12/18/22 12/17/22 History montelukast 10 mg tablet 10 mg PO BEDTIME 05/16/20 12/18/22 12/17/22 History fexofenadine 180 mg tablet 180 mg PO DAILY 06/21/21 12/18/22 12/18/22 History (Shea Allergy) coenzyme Q10 100 mg tablet 100 mg PO DAILY 07/28/21 12/18/22 12/18/22 History magnesium 250 mg tablet 250 mg PO BEDTIME 07/28/21 12/18/22 12/17/22 History multivitamin 1 tab PO DAILY 07/28/21 12/18/22 12/18/22 History losartan 100 mg tablet 100 mg PO DAILY 02/04/22 12/18/22 12/18/22 History meloxicam 15 mg tablet 15 mg PO DAILY 05/06/22 12/18/22 12/18/22 History vitamin E (dl, acetate) 180 mg 180 mg PO DAILY 07/28/22 12/18/22 12/18/22 History (400 unit) capsule rivaroxaban 20 mg tablet (Xarelto) 20 mg PO DAILY@1700 09/10/22 12/18/22 12/17/22 History ascorbic acid (vitamin C) 500 mg 500 mg PO DAILY 09/26/22 12/18/22 12/18/22 History tablet furosemide 40 mg tablet 40 mg PO DAILY 09/26/22 12/18/22 12/18/22 History omeprazole 40 mg capsule,delayed 40 mg PO BEDTIME 09/26/22 12/18/22 12/17/22 History release turmeric 400 mg capsule 100 mg PO DAILY@1200 11/03/22 12/18/22 12/18/22 History cholecalciferol (vitamin D3) 50 50 mcg PO DAILY 12/18/22 12/18/22 12/18/22 History mcg (2,000 unit) capsule spironolactone 25 mg tablet 25 mg PO QAM 12/18/22 12/18/22 12/18/22 History Physical Exam Vital Signs: Vital Signs: Last Vital Signs Temp 98.5 F 12/19/22 07:03 Pulse 61 12/19/22 07:03 Resp 18 12/19/22 07:03 BP 122/53 L 12/19/22 07:03 Pulse Ox 90 L 12/19/22 07:03 O2 Del Method Room Air 12/19/22 07:03 BMI result Body Mass Index 31.1 Const: General: cooperative, healthy appearing and no acute distress Resp: Effort & Inspection: normal respiratory effort and able to speak in complete sentences Cardio: Rate: regular rate Peripheral pulses: Peripheral pulses 2+ throughout GI: Palpation (GI): Soft to palpation Skin: Lesions: no lesions Rashes: no rashes Extrem: Other: Left lower extremity is shortened and externally rotated. Able to dorsi/plantar flex. NVI. Left upper extremity about to perform full wrist flexion, extension, finger abduction, adduction, fingercross, okay sign, and thumbs up without deficit. Sensation is intact. Radial pulse intact. Results Labs 12/19/22 05:49 12/19/22 05:49 Labs: Abnormal lab results 12/18/22 12/18/22 12/18/22 Range/Units 11:48 11:48 11:48 WBC 11.6 H (4.8-10.8) X10*3/uL RBC 3.72 L (4.20-5.50) X10*6/uL Hgb (12.0-16.0) g/dl Hct 36.3 L (37.0-47.0) % MCV (80.0-98.0) fL Plt Count 115 L D (160-400) X10*3/uL Immature Gran % (Auto) 0.7 H (0.0-0.4) % Neut % (Auto) 82.4 H (45-73) % Lymph % (Auto) 5.4 L (20-40) % Lymph # (Auto) 0.6 L (1.2-4.9) X10*3/uL Abs Immat Gran (auto) 0.08 H (0.00-0.03) X10*3/uL Absolute Neuts (auto) 9.5 H (2.0-8.3) x10*3/uL PT 15.8 H (10.0-13.1) SEC INR 1.4 H (0.9-1.1) Chloride 110 H (96-108) mmol/L Anion Gap (12-20) BUN 40 H (9-16) mg/dL Random Glucose 120 H (60-115) mg/dL Calcium (8.4-10.2) mg/dL Total Bilirubin 1.9 H (0.0-1.0) mg/dL 12/19/22 12/19/22 Range/Units 05:49 05:49 WBC (4.8-10.8) X10*3/uL RBC 3.34 L (4.20-5.50) X10*6/uL Hgb 10.8 L (12.0-16.0) g/dl Hct 34.0 L (37.0-47.0) % MCV 101.8 H (80.0-98.0) fL Plt Count 142 L (160-400) X10*3/uL Immature Gran % (Auto) (0.0-0.4) % Neut % (Auto) (45-73) % Lymph % (Auto) (20-40) % Lymph # (Auto) (1.2-4.9) X10*3/uL Abs Immat Gran (auto) (0.00-0.03) X10*3/uL Absolute Neuts (auto) (2.0-8.3) x10*3/uL PT (10.0-13.1) SEC INR (0.9-1.1) Chloride (96-108) mmol/L Anion Gap 11 L (12-20) BUN 37 H (9-16) mg/dL Random Glucose 123 H (60-115) mg/dL Calcium 8.3 L (8.4-10.2) mg/dL Total Bilirubin (0.0-1.0) mg/dL H & H 12/18/22 12/19/22 Range/Units 11:48 05:49 Hgb 12.2 10.8 L (12.0-16.0) g/dl Hct 36.3 L 34.0 L (37.0-47.0) % Coagulation 12/18/22 Range/Units 11:48 INR 1.4 H (0.9-1.1) All other labs normal. Assessment and Plan (1) Femoral neck fracture: Status: Acute I discussed the case with Dr. Vizcarra and explained the extent of the injury to the patient and options available which include surgical intervention. I explained the procedure in detail along with the length of recovery and rehab course. I explained the risk, benefits and alternatives. Risk including, but not limited to infection, blood clots, bleeding, non union or malunion and nerve/tissue damage to surrounding areas. I answered all their questions and with their understanding they have consented to move forward with Operative Fixation of the left hip. The patient will be T&S, med clearance obtained an remain NPO. Left shoulder: Sling for comfort Encourage gentle ROM at the Elbow/hand/wrist elevation of the hand to decrease/minimize edema NWB (2) Paroxysmal atrial fibrillation: Status: Acute (3) Chronic heart failure with preserved ejection fraction (HFpEF): Status: Acute (4) Pulmonary hypertension: Status: Acute (5) HTN (hypertension): Status: Acute (6) History of cardiomyopathy: Status: Acute (7) Closed fracture dislocation of left shoulder: Status: Acute (8) Left displaced femoral neck fracture: Status: Acute Time Spent With Patient Time: Total time managing care of this patient today ____ minutes. Procedures Date of Service Date of Service: 12/19/22
[2022-12-19] MEDS: 0.9 % Sodium Chloride Flush 3 ML SYRINGE IVFLUSH ×2 (08:23→17:15)
[2022-12-19] MEDS: carvediloL 12.5 MG TABLET PO ×2 (08:24→20:49)
[2022-12-19] MEDS: NaPROXEN 500 MG TABLET PO ×2 (08:24→20:47)
[2022-12-19] MEDS: Atorvastatin Calcium 40 MG TABLET PO (08:24)
[2022-12-19] MEDS: Multivitamin TABLET 1 TAB PO (08:24)
[2022-12-19] MEDS: dilTIAZem HCL CD 120 MG CAP.ER.DEG PO (08:24)
[2022-12-19] MEDS: Empagliflozin 10 MG TABLET PO (08:25)
[2022-12-19] MEDS: Loratadine 10 MG TABLET PO (08:25)
[2022-12-19] MEDS: Docusate Sodium 100 MG CAPSULE PO ×2 (08:26→20:43)
--- NOTE | 2022-12-19 10:30 | PM.CNCAR ---
History of Present Illness History of Present Illness Date of Service: 12/19/22 Chief complaint: l hip fracture Narrative: This is a cardiology consultation regarding preoperative risk stratification for hip fracture. Patient had a mechanical fall and left hip fracture and requires surgery for the same. It also seems that she had an injury to the left shoulder with left proximal humerus fracture/dislocation. From the cardiac standpoint, she has a long history of difficult to manage atrial fibrillation. According to patient, she has been cardioverted 9 times in the past. She has had 3 ablations. Subsequently sent to [facility] for further evaluation but it was felt that due to age she would not be a suitable for epicardial ablation. Then she was referred back to [facility] and has seen Dr. Jennings. It seems that nothing has been done at this time but if she goes back into atrial fibrillation again she may need AV node ablation. Any case, current issues mechanical fall leading to fracture of the hip. Shoulder injury as well. She needs surgery for the hip. No cardiac symptoms at this time and she is doing okay in that regard. No recent atrial fibrillation concerns. Review of Systems Review of Systems: Yes all other systems are reviewed and are negative Constitutional: Constitutional: Reports as per HPI and Reports no additional constitutional complaints Eyes: Eyes: Reports as per HPI and Denies no additional eye complaints ENT: Denies system reviewed and no additional complaints, except as documented and Reports as per HPI Cardiovascular: Cardiovascular: Reports as per HPI, Reports no additional cardiovascular complaints, Denies acrocyanosis, Denies cool extremities, Denies chest pain, Denies leg edema, Denies lightheadedness, Denies palpitations and Denies dyspnea Respiratory: Respiratory: Reports as per HPI, Denies no additional respiratory complaints and Denies dyspnea Gastrointestinal: Gastrointestinal: Reports as per HPI and Denies no additional gastrointestinal complaints Genitourinary: Genitourinary: Reports as per HPI Musculoskeletal: Musculoskeletal: Reports no additional musculoskeletal complaints and Reports as per HPI Integumentary/Breasts: Skin/Breast: Reports system reviewed and no additional complaints, except as docu Neurologic: Reports system reviewed and no additional complaints, except as documented and Reports as per HPI Psychiatric: Psychiatric: Reports no additional psychiatric complaints and Reports as per HPI Endocrine: Endocrine: Reports no additional endocrine complaints, Reports as per HPI and Denies palpitations Hematologic/Lymphatic: Hematologic/Lymphatic: Reports no additional hematologic/lymphatic complaints and Reports as per HPI Allergic/Immunologic: Allergic/Immunologic: Reports no additional allergic/immunologic complaints and Reports as per HPI [facility] Past Medical History Medical History Atrial fibrillation with RVR Cardiomyopathy Chronic heart failure with preserved ejection fraction (HFpEF) Diastolic dysfunction History of cardiomyopathy History of cardioversion HTN (hypertension) NSTEMI (non-ST elevated myocardial infarction) Paroxysmal atrial fibrillation Paroxysmal atrial fibrillation Pulmonary hypertension Pulmonary hypertension Family History Family History Father Cancer Mother Stroke Brother Atrial fibrillation Sister Cardiovascular disease Atrial fibrillation Surgical History Surgical History History of back surgery Hx of cardiac cath Hx of hand surgery Hx of total hip arthroplasty S/P cardiac catheterization Social History Social History Household Members: None Housing: House Do you presently have visiting nurse or other home services: No Unable to assess alcohol history related to: Unknown Alcohol intake: never Patient Tobacco Use Status: Never used Tobacco Smoked in Last 30 Days: No Patient Interested in Nicotine Replacement: No Patient Given Instructions on How to Stop Smoking: No Second Hand Smoke Exposure: No Use of substances other than those prescribed or required for medical reasons: No Currently Displaying Signs/Symptoms of Drug Intoxication Withdrawal: No Any prior treatment program specific to substance use: No Have you been hit, kicked, punched, or otherwise hurt by someone within the past year? If so, by whom?: No Do you feel safe in your current relationship?: No Current Relationship Is there a partner from a previous relationship who is making you feel unsafe now?: No Are you made to feel afraid or neglected: No Advance Directives: Yes Advance Directives Information Provided: Yes Advance Directives on File: No Advance Directives Date on File: 12/18/22 Do you have thoughts of harming others: None Do you have a plan to hurt others: No Plan Recently lost weight without trying: Unsure Eating poorly because of decreased appetite: Yes Nutrition Risks: No Nutritional Risk Patient : No : No Poor oral hygiene: No service: No Current occupational status: retired Meds Allergies Allergy/AdvReac Type Severity Reaction Status Date / Time aspirin [ASPIRIN] Allergy Unknown RASH Verified 12/18/22 10:04 Sulfa (Sulfonamide Allergy Unknown RASH Verified 12/18/22 10:04 Antibiotics) [SULFA (SULFONAMIDE ANTIBIOTICS)] flecainide AdvReac Intermediate Dizziness Verified 12/18/22 10:04 amiodarone AdvReac Mild Dizziness Verified 12/18/22 10:04 adhesives AdvReac Unknown Uncoded 09/26/22 17:01 Active Medications: Current Medications Acetaminophen (Acetaminophen 325 Mg Tablet) 650 mg PO Q8H [facility] Last Admin: 12/19/22 06:11 Dose: 650 mg Albuterol/Ipratropium (Albuterol/Iprat 2.5/0.5mg 3 Ml Ampul.Neb) 3 ml INHALE Q4H PRN PRN Reason: for wheezing Atorvastatin Calcium (Atorvastatin Calcium 40 Mg Tablet) 40 mg PO DAILY [facility] Last Admin: 12/19/22 08:24 Dose: 40 mg Carvedilol (Carvedilol 12.5 Mg Tablet) 12.5 mg PO BID [facility]; Protocol Last Admin: 12/19/22 08:24 Dose: 12.5 mg Diltiazem HCl (Diltiazem Hcl Cd 120 Mg Cap.Er.Deg) 120 mg PO DAILY [facility]; Protocol Last Admin: 12/19/22 08:24 Dose: 120 mg Docusate Sodium (Docusate Sodium 100 Mg Capsule) 100 mg PO BID [facility] Last Admin: 12/19/22 08:26 Dose: 100 mg Empagliflozin (Empagliflozin 10 Mg Tablet) 10 mg PO DAILY [facility] Last Admin: 12/19/22 08:25 Dose: 10 mg Gabapentin (Gabapentin 300 Mg Capsule) 600 mg PO BEDTIME [facility] Last Admin: 12/18/22 21:05 Dose: 600 mg Loratadine (Loratadine 10 Mg Tablet) 10 mg PO DAILY [facility] Last Admin: 12/19/22 08:25 Dose: 10 mg Magnesium Oxide (Magnesium Oxide 400 Mg Tablet) 200 mg PO BEDTIME [facility] Last Admin: 12/18/22 21:05 Dose: 200 mg Montelukast Sodium (Montelukast Sodium 10 Mg Tablet) 10 mg PO BEDTIME [facility] Last Admin: 12/18/22 21:11 Dose: 10 mg Morphine Sulfate (Morphine Sulfate 4 Mg/Ml Cartridge) 4 mg IVPUSH Q4H PRN; Protocol PRN Reason: Pain, Severe (Pain Scale 7-10) Last Admin: 12/19/22 06:14 Dose: 4 mg Multivitamins/Vitamin C (Multivitamin Tablet) 1 tab PO DAILY [facility] Last Admin: 12/19/22 08:24 Dose: 1 tab Naproxen (Naproxen 500 Mg Tablet) 500 mg PO BID [facility] Last Admin: 12/19/22 08:24 Dose: 500 mg Omeprazole (Omeprazole 40 Mg Capsule.Dr) 40 mg PO BEDTIME [facility] Last Admin: 12/18/22 21:04 Dose: 40 mg Ondansetron HCl (Ondansetron Hcl 4 Mg/2 Ml Vial) 4 mg IVPUSH Q8H PRN PRN Reason: Nausea and Vomiting Last Admin: 12/18/22 14:23 Dose: 4 mg Sodium Chloride (0.9 % Sodium Chloride Flush 3 Ml Syringe) 3 ml IVFLUSH QSHIFT [facility] Last Admin: 12/19/22 08:23 Dose: 3 ml Home Medications Medication Instructions Recorded Confirmed Last Taken Type gabapentin 300 mg capsule 600 mg PO BEDTIME 05/16/20 12/18/22 12/17/22 History montelukast 10 mg tablet 10 mg PO BEDTIME 05/16/20 12/18/22 12/17/22 History fexofenadine 180 mg tablet 180 mg PO DAILY 06/21/21 12/18/22 12/18/22 History (Shea Allergy) coenzyme Q10 100 mg tablet 100 mg PO DAILY 07/28/21 12/18/22 12/18/22 History magnesium 250 mg tablet 250 mg PO BEDTIME 07/28/21 12/18/22 12/17/22 History multivitamin 1 tab PO DAILY 07/28/21 12/18/22 12/18/22 History losartan 100 mg tablet 100 mg PO DAILY 02/04/22 12/18/22 12/18/22 History meloxicam 15 mg tablet 15 mg PO DAILY 05/06/22 12/18/22 12/18/22 History vitamin E (dl, acetate) 180 mg 180 mg PO DAILY 07/28/22 12/18/22 12/18/22 History (400 unit) capsule rivaroxaban 20 mg tablet (Xarelto) 20 mg PO DAILY@1700 09/10/22 12/18/22 12/17/22 History ascorbic acid (vitamin C) 500 mg 500 mg PO DAILY 09/26/22 12/18/22 12/18/22 History tablet furosemide 40 mg tablet 40 mg PO DAILY 09/26/22 12/18/22 12/18/22 History omeprazole 40 mg capsule,delayed 40 mg PO BEDTIME 09/26/22 12/18/22 12/17/22 History release turmeric 400 mg capsule 100 mg PO DAILY@1200 11/03/22 12/18/22 12/18/22 History cholecalciferol (vitamin D3) 50 50 mcg PO DAILY 12/18/22 12/18/22 12/18/22 History mcg (2,000 unit) capsule spironolactone 25 mg tablet 25 mg PO QAM 12/18/22 12/18/22 12/18/22 History Physical Exam Vital Signs: Vital Signs: Last Vital Signs Temp 98.5 F 12/19/22 07:03 Pulse 61 12/19/22 07:03 Resp 18 12/19/22 07:03 BP 122/53 L 12/19/22 07:03 Pulse Ox 90 L 12/19/22 07:03 O2 Del Method Room Air 12/19/22 07:03 BMI result Body Mass Index 31.1 Const: General: comfortable and no acute distress Orientation/consciousness: patient oriented x3 HEENT: Other: Unremarkable Head: Yes normal to inspection Neck: Neck: Yes normal visual inspection Chest: Chest palpation & inspection: normal inspection of the chest Resp: Auscultation: clear to auscultation bilaterally Cardio: Palpation: normal PMI Heart sounds: S1 normal heart sound present, S2 normal heart sound present, no gallops, no murmurs and no rubs GI: Palpation (GI): Soft to palpation Back/Spine/Pelvis: Other: unremarkable Skin: General skin exam: no rashes or lesions noted Neuro: General: patient oriented x3 Extrem: General: Yes normal to inspection Psych: Mental Status: mental status grossly normal Objective Labs and Meds 12/19/22 05:49 12/19/22 05:49 Lab results: Laboratory Results - last 24 hr 12/18/22 12/18/22 12/18/22 11:00 11:48 11:48 WBC 11.6 H RBC 3.72 L Hgb 12.2 Hct 36.3 L MCV 97.6 MCH 32.8 MCHC 33.6 RDW 11.9 Plt Count 115 L D MPV 10.0 Immature Gran % (Auto) 0.7 H Neut % (Auto) 82.4 H Lymph % (Auto) 5.4 L Webster % (Auto) 8.6 Eos % (Auto) 2.5 Baso % (Auto) 0.4 Lymph # (Auto) 0.6 L Webster # (Auto) 1.0 Eos # (Auto) 0.3 Baso # (Auto) 0.1 Abs Immat Gran (auto) 0.08 H Absolute Neuts (auto) 9.5 H Absolute Nucleated RBC 0.000 Nucleated RBC % (auto) 0.0 PT 15.8 H INR 1.4 H Sodium Potassium Chloride Carbon Dioxide Anion Gap BUN Creatinine Estim Creat Clear Calc Estimated GFR Random Glucose Calcium Total Bilirubin Direct Bilirubin AST ALT Alkaline Phosphatase Total Protein Albumin COVID-19 ([facility]) Negative [employer] See Note Blood Type Antibody Screen 12/18/22 12/18/22 12/19/22 11:48 22:44 05:49 WBC 7.3 RBC 3.34 L Hgb 10.8 L Hct 34.0 L MCV 101.8 H MCH 32.3 MCHC 31.8 RDW 11.8 Plt Count 142 L MPV 9.5 Immature Gran % (Auto) Neut % (Auto) Lymph % (Auto) Webster % (Auto) Eos % (Auto) Baso % (Auto) Lymph # (Auto) Webster # (Auto) Eos # (Auto) Baso # (Auto) Abs Immat Gran (auto) Absolute Neuts (auto) Absolute Nucleated RBC 0.000 Nucleated RBC % (auto) 0.0 PT INR Sodium 140 Potassium 4.7 Chloride 110 H Carbon Dioxide 22 Anion Gap 13 BUN 40 H Creatinine 1.30 Estim Creat Clear Calc 38.3 Estimated GFR 40 Random Glucose 120 H Calcium 8.6 Total Bilirubin 1.9 H Direct Bilirubin 0.5 AST 23 ALT 15 Alkaline Phosphatase 57 Total Protein 6.5 Albumin 3.7 COVID-19 ([facility]) COVID-19 [employer] Com Blood Type O Positive Antibody Screen NEGATIVE 12/19/22 05:49 WBC RBC Hgb Hct MCV MCH MCHC RDW Plt Count MPV Immature Gran % (Auto) Neut % (Auto) Lymph % (Auto) Webster % (Auto) Eos % (Auto) Baso % (Auto) Lymph # (Auto) Webster # (Auto) Eos # (Auto) Baso # (Auto) Abs Immat Gran (auto) Absolute Neuts (auto) Absolute Nucleated RBC Nucleated RBC % (auto) PT INR Sodium 140 Potassium 4.3 Chloride 108 Carbon Dioxide 25 Anion Gap 11 L BUN 37 H Creatinine 1.01 Estim Creat Clear Calc 49.4 Estimated GFR 53 Random Glucose 123 H Calcium 8.3 L Total Bilirubin Direct Bilirubin AST ALT Alkaline Phosphatase Total Protein Albumin COVID-19 ([facility]) COVID-19 Clin Com Blood Type Antibody Screen Imaging Radiologist's impression: Impressions Chest X-Ray 12/18/22 10:40 IMPRESSION: 1. Mild bibasilar subsegmental atelectasis. 2. No evidence of pulmonary edema. 3. No focal consolidation. Hand X-Ray 12/18/22 10:40 IMPRESSION: Femoral neck fracture left hip. Hip/Pelvis X-Ray 12/18/22 10:40 IMPRESSION: Femoral neck fracture left hip. Assessment and Plan (1) Preoperative cardiovascular examination: Status: Acute (2) Paroxysmal atrial fibrillation: Status: Acute (3) Left displaced femoral neck fracture: Status: Acute (4) Closed fracture dislocation of left shoulder: Status: Acute Plan Cardiac catheterization the past without any significant CAD. Mild irregularities in circumflex and RCA Last echocardiogram with preserved LVEF. Overall, she does not have much of coronary issues but definitely has history of longstanding atrial fibrillation, difficult to manage in spite of multiple cardioversions and ablations as well as antiarrhythmic therapy. In the current instance of hip fracture as well as shoulder injury, there is a high likelihood of recurrence of atrial fibrillation. In spite of the fact that she has had intolerances to antiarrhythmics in the past, still may be reasonable to just keep her on at least short-term amiodarone for 3-4 weeks as there is increased likelihood of the arrhythmia in this time period. Hopefully she will tolerate it at least for the short time. Otherwise from anticoagulation can be resumed when stable from surgery. Discussed with Dr. Mata. Time Spent With Patient Time: Total time managing care of this patient today ____ minutes. Procedures Date of Service Date of Service: 12/19/22
[2022-12-19] MEDS: Amiodarone HCL 200 MG TABLET 400 MG PO (11:11)
--- NOTE | 2022-12-19 12:12 | P.CONAN_ITS ---
HPI - Anesthesia Eval Consult details Narrative: Hemiarthroplasty left hip PMFSH Active Problems Active Problems: All Active Problems (Updated 12/19/22 @ 10:36 by Silvino Can MD) Preoperative cardiovascular examination (Acute) Left displaced femoral neck fracture (Acute) Closed fracture dislocation of left shoulder (Acute) Femoral neck fracture (Acute) Paroxysmal atrial fibrillation (Acute) Cough (Acute) Dyspnea on exertion (Acute) Chronic heart failure with preserved ejection fraction (HFpEF) (Acute) Decreased diffusion capacity (Acute) Pulmonary nodules (Acute) SOB (shortness of breath) on exertion (Acute) Chronic cough (Acute) UTI (urinary tract infection) (Acute) Diastolic dysfunction (Acute) Pulmonary hypertension (Acute) HTN (hypertension) (Acute) History of cardiomyopathy (Acute) Past Medical History Medical History Atrial fibrillation with RVR Cardiomyopathy Chronic heart failure with preserved ejection fraction (HFpEF) Diastolic dysfunction History of cardiomyopathy History of cardioversion HTN (hypertension) NSTEMI (non-ST elevated myocardial infarction) Paroxysmal atrial fibrillation Paroxysmal atrial fibrillation Pulmonary hypertension Pulmonary hypertension Family History Family History Father Cancer Mother Stroke Brother Atrial fibrillation Sister Cardiovascular disease Atrial fibrillation Family history of problems with anesthesia: No Surgical History Surgical History History of back surgery Hx of cardiac cath Hx of hand surgery Hx of total hip arthroplasty S/P cardiac catheterization History of Problems with Anesthesia: No Social History Social History Household Members: None Housing: House Do you presently have visiting nurse or other home services: No Unable to assess alcohol history related to: Unknown Alcohol intake: never Patient Tobacco Use Status: Never used Tobacco Smoked in Last 30 Days: No Patient Interested in Nicotine Replacement: No Patient Given Instructions on How to Stop Smoking: No Second Hand Smoke Exposure: No Use of substances other than those prescribed or required for medical reasons: No Currently Displaying Signs/Symptoms of Drug Intoxication Withdrawal: No Any prior treatment program specific to substance use: No Have you been hit, kicked, punched, or otherwise hurt by someone within the past year? If so, by whom?: No Do you feel safe in your current relationship?: No Current Relationship Is there a partner from a previous relationship who is making you feel unsafe now?: No Are you made to feel afraid or neglected: No Advance Directives: Yes Advance Directives Information Provided: Yes Advance Directives on File: No Advance Directives Date on File: 12/18/22 Do you have thoughts of harming others: None Do you have a plan to hurt others: No Plan Recently lost weight without trying: Unsure Eating poorly because of decreased appetite: Yes Nutrition Risks: No Nutritional Risk Patient : No : No Poor oral hygiene: No service: No Current occupational status: retired [employer] Allergies Allergy/AdvReac Type Severity Reaction Status Date / Time aspirin [ASPIRIN] Allergy Unknown RASH Verified 12/18/22 10:04 Sulfa (Sulfonamide Allergy Unknown RASH Verified 12/18/22 10:04 Antibiotics) [SULFA (SULFONAMIDE ANTIBIOTICS)] flecainide AdvReac Intermediate Dizziness Verified 12/18/22 10:04 amiodarone AdvReac Mild Dizziness Verified 12/18/22 10:04 adhesives AdvReac Unknown Uncoded 09/26/22 17:01 Active Medications: Current Medications Acetaminophen (Acetaminophen 325 Mg Tablet) 650 mg PO Q8H [facility] Last Admin: 12/19/22 06:11 Dose: 650 mg Albuterol/Ipratropium (Albuterol/Iprat 2.5/0.5mg 3 Ml Ampul.Neb) 3 ml INHALE Q4H PRN PRN Reason: for wheezing Amiodarone HCl (Amiodarone Hcl 200 Mg Tablet) 200 mg PO BID [facility] Atorvastatin Calcium (Atorvastatin Calcium 40 Mg Tablet) 40 mg PO DAILY [facility] Last Admin: 12/19/22 08:24 Dose: 40 mg Carvedilol (Carvedilol 12.5 Mg Tablet) 12.5 mg PO BID [facility]; Protocol Last Admin: 12/19/22 08:24 Dose: 12.5 mg Diltiazem HCl (Diltiazem Hcl Cd 120 Mg Cap.Er.Deg) 120 mg PO DAILY [facility]; Protocol Last Admin: 12/19/22 08:24 Dose: 120 mg Docusate Sodium (Docusate Sodium 100 Mg Capsule) 100 mg PO BID [facility] Last Admin: 12/19/22 08:26 Dose: 100 mg Empagliflozin (Empagliflozin 10 Mg Tablet) 10 mg PO DAILY [facility] Last Admin: 12/19/22 08:25 Dose: 10 mg Gabapentin (Gabapentin 300 Mg Capsule) 600 mg PO BEDTIME [facility] Last Admin: 12/18/22 21:05 Dose: 600 mg Loratadine (Loratadine 10 Mg Tablet) 10 mg PO DAILY [facility] Last Admin: 12/19/22 08:25 Dose: 10 mg Magnesium Oxide (Magnesium Oxide 400 Mg Tablet) 200 mg PO BEDTIME [facility] Last Admin: 12/18/22 21:05 Dose: 200 mg Montelukast Sodium (Montelukast Sodium 10 Mg Tablet) 10 mg PO BEDTIME [facility] Last Admin: 12/18/22 21:11 Dose: 10 mg Morphine Sulfate (Morphine Sulfate 4 Mg/Ml Cartridge) 4 mg IVPUSH Q4H PRN; Protocol PRN Reason: Pain, Severe (Pain Scale 7-10) Last Admin: 12/19/22 06:14 Dose: 4 mg Multivitamins/Vitamin C (Multivitamin Tablet) 1 tab PO DAILY [facility] Last Admin: 12/19/22 08:24 Dose: 1 tab Naproxen (Naproxen 500 Mg Tablet) 500 mg PO BID [facility] Last Admin: 12/19/22 08:24 Dose: 500 mg Omeprazole (Omeprazole 40 Mg Capsule.Dr) 40 mg PO BEDTIME [facility] Last Admin: 12/18/22 21:04 Dose: 40 mg Ondansetron HCl (Ondansetron Hcl 4 Mg/2 Ml Vial) 4 mg IVPUSH Q8H PRN PRN Reason: Nausea and Vomiting Last Admin: 12/18/22 14:23 Dose: 4 mg Sodium Chloride (0.9 % Sodium Chloride Flush 3 Ml Syringe) 3 ml IVFLUSH [facility] Last Admin: 12/19/22 08:23 Dose: 3 ml Home Medications Medication Instructions Recorded Confirmed Last Taken Type gabapentin 300 mg capsule 600 mg PO BEDTIME 05/16/20 12/18/22 12/17/22 History montelukast 10 mg tablet 10 mg PO BEDTIME 05/16/20 12/18/22 12/17/22 History fexofenadine 180 mg tablet 180 mg PO DAILY 06/21/21 12/18/22 12/18/22 History (Shea Allergy) coenzyme Q10 100 mg tablet 100 mg PO DAILY 07/28/21 12/18/22 12/18/22 History magnesium 250 mg tablet 250 mg PO BEDTIME 07/28/21 12/18/22 12/17/22 History multivitamin 1 tab PO DAILY 07/28/21 12/18/22 12/18/22 History losartan 100 mg tablet 100 mg PO DAILY 02/04/22 12/18/22 12/18/22 History meloxicam 15 mg tablet 15 mg PO DAILY 05/06/22 12/18/22 12/18/22 History vitamin E (dl, acetate) 180 mg 180 mg PO DAILY 07/28/22 12/18/22 12/18/22 History (400 unit) capsule rivaroxaban 20 mg tablet (Xarelto) 20 mg PO DAILY@1700 09/10/22 12/18/22 12/17/22 History ascorbic acid (vitamin C) 500 mg 500 mg PO DAILY 09/26/22 12/18/22 12/18/22 History tablet furosemide 40 mg tablet 40 mg PO DAILY 09/26/22 12/18/22 12/18/22 History omeprazole 40 mg capsule,delayed 40 mg PO BEDTIME 09/26/22 12/18/22 12/17/22 History release turmeric 400 mg capsule 100 mg PO DAILY@1200 11/03/22 12/18/22 12/18/22 History cholecalciferol (vitamin D3) 50 50 mcg PO DAILY 12/18/22 12/18/22 12/18/22 History mcg (2,000 unit) capsule spironolactone 25 mg tablet 25 mg PO QAM 12/18/22 12/18/22 12/18/22 History Exam Exam Date and Time: December 19, 2022 1212 Height,Weight and Vital Signs: Height 5 ft 5 in Weight 84.9 kg Last Vital Signs Temp 98.5 F 12/19/22 07:03 Pulse 61 12/19/22 07:03 Resp 18 12/19/22 07:03 BP 122/53 L 12/19/22 07:03 Pulse Ox 90 L 12/19/22 07:03 O2 Del Method Room Air 12/19/22 07:03 Pertinent Lab Results Pertinent Lab Results: Laboratory Tests 12/18/22 12/18/22 12/18/22 11:00 11:48 11:48 WBC 11.6 H RBC 3.72 L Hgb 12.2 Hct 36.3 L MCV 97.6 MCH 32.8 MCHC 33.6 RDW 11.9 Plt Count 115 L D MPV 10.0 Immature Gran % (Auto) 0.7 H Neut % (Auto) 82.4 H Lymph % (Auto) 5.4 L [place] % (Auto) 8.6 Eos % (Auto) 2.5 Baso % (Auto) 0.4 Lymph # (Auto) 0.6 L [place] # (Auto) 1.0 Eos # (Auto) 0.3 Baso # (Auto) 0.1 Abs Immat Gran (auto) 0.08 H Absolute Neuts (auto) 9.5 H Absolute Nucleated RBC 0.000 Nucleated RBC % (auto) 0.0 PT 15.8 H INR 1.4 H Sodium Potassium Chloride Carbon Dioxide Anion Gap BUN Creatinine Estim Creat Clear Calc Estimated GFR Random Glucose Calcium Total Bilirubin Direct Bilirubin AST ALT Alkaline Phosphatase Total Protein Albumin COVID-19 ([facility]) Negative COVID-19 Clin Com See Note Blood Type Antibody Screen 12/18/22 12/18/22 12/19/22 11:48 22:44 05:49 WBC 7.3 RBC 3.34 L Hgb 10.8 L Hct 34.0 L MCV 101.8 H MCH 32.3 MCHC 31.8 RDW 11.8 Plt Count 142 L MPV 9.5 Immature Gran % (Auto) Neut % (Auto) Lymph % (Auto) [place] % (Auto) Eos % (Auto) Baso % (Auto) Lymph # (Auto) [place] # (Auto) Eos # (Auto) Baso # (Auto) Abs Immat Gran (auto) Absolute Neuts (auto) Absolute Nucleated RBC 0.000 Nucleated RBC % (auto) 0.0 PT INR Sodium 140 Potassium 4.7 Chloride 110 H Carbon Dioxide 22 Anion Gap 13 BUN 40 H Creatinine 1.30 Estim Creat Clear Calc 38.3 Estimated GFR 40 Random Glucose 120 H Calcium 8.6 Total Bilirubin 1.9 H Direct Bilirubin 0.5 AST 23 ALT 15 Alkaline Phosphatase 57 Total Protein 6.5 Albumin 3.7 COVID-19 ([facility]) COVID-19 Clin Com Blood Type O Positive Antibody Screen NEGATIVE 12/19/22 05:49 WBC RBC Hgb Hct MCV MCH MCHC RDW Plt Count MPV Immature Gran % (Auto) Neut % (Auto) Lymph % (Auto) [place] % (Auto) Eos % (Auto) Baso % (Auto) Lymph # (Auto) [place] # (Auto) Eos # (Auto) Baso # (Auto) Abs Immat Gran (auto) Absolute Neuts (auto) Absolute Nucleated RBC Nucleated RBC % (auto) PT INR Sodium 140 Potassium 4.3 Chloride 108 Carbon Dioxide 25 Anion Gap 11 L BUN 37 H Creatinine 1.01 Estim Creat Clear Calc 49.4 Estimated GFR 53 Random Glucose 123 H Calcium 8.3 L Total Bilirubin Direct Bilirubin AST ALT Alkaline Phosphatase Total Protein Albumin COVID-19 ([facility]) COVID-19 Clin Com Blood Type Antibody Screen Airway Mallampati Class: II TM Dist: >3cm Neck ROM: Limited Heart: rrr Lungs: cta Assessment and Plan Assessment Anesthesia Assessment: Anesthesia Plan Discussed Final Anesthetic Review Family History of Problems with Anesthesia: No History of Problems with Anesthesia: No NPO: Yes ASA Class: IV Final Preanesthetic Review: No Changes in Pt Med Stat, Meds/Allgs Chart Reviewed, Consent Obtained/Reviewed and Anes Risks/Benef Reviewed Patient Risk: High Procedure Risk: Intermediate Anesthetic Plan Anesthetic Plan: GA and Agree w/ Assess. and Plan Disposition: Standard PACU
--- NOTE | 2022-12-19 13:17 | PC.NURSE ---
Iv from floor does not flush, after removal of dressing and cleaning of area and tightening of hub. r hand attempt at iv with #18 gauge, unsuccessful, pressure dressing applied for hematoma, dressing changed for bleeding with no further oozing. Anesthesiologist Dr. Mendoza placed #18 in RAC under ultrasound.
--- NOTE | 2022-12-19 14:12 | MHC.CM.PN ---
Per MD rounds OR today. Patient will need a PT eval. Dispo will be STR. Once PT eval is available will send to facilities. DP STR via BLS.
--- NOTE | 2022-12-19 14:32 | PM.OP ---
Brief Operative Note Date of Service: 12/19/22 Pre-op diagnosis: Left femoral neck fracture Post-op diagnosis: same Procedure: Left hip hemiarthroplasty Implants: Falguni Accolade2 #4 127 deg with +4 bipolar Surgeon: Leonardo Vizcarra MD Anesthesia: GETA and local Was an Internal Medicine Physician Assistant used for this Procedure?: Yes Internal Medicine Physician Assistant: Yari Esposito Estimated blood loss (mL): 150 IV fluids (mL): 800 Pathology: other Condition: stable Disposition: PACU
[2022-12-19] MEDS: fentaNYL citrate/PF 100 MCG/2 ML VIAL 25 MCG IVPUSH (15:29)
--- NOTE | 2022-12-19 16:10 | HO.PM.IMPN ---
Subjective Subjective Date of Service: 12/19/22 Interval History: hx recurrent AF, failed ablation currently NSR NPO for OR no chest pain or dyspnea Review of Systems Review of Systems: Yes all other systems are reviewed and are negative Physical Exam Vital Signs: Vital Signs: Last Vital Signs Temp 97 F 12/19/22 15:58 Pulse 67 12/19/22 15:58 Resp 16 12/19/22 15:58 BP 147/72 H 12/19/22 15:58 Pulse Ox 95 12/19/22 15:58 O2 Del Method Nasal Cannula 12/19/22 15:58 O2 Flow Rate 3 12/19/22 15:58 BMI result Body Mass Index 31.1 Gen: in no acute distress HEENT: sclera anicteric, moist mucus membranes Neck: supple Lungs: clear to auscultation bilaterally Heart: regular rate and rhythm, no murmurs Abd: soft, non-tender, non-distended Ext: L leg shortened/externally rotated, L shoulder in sling with bruising of hand, both arm and leg neurovascularly intact Skin: warm/well-perfused Neuro: alert and oriented x3, no focal findings Psych: appropriate affect Objective Data Active Medications Acetaminophen (Acetaminophen 325 Mg Tablet) 650 mg PO Q8H [facility] Last Admin: 12/19/22 06:11 Dose: 650 mg Documented By: LUCAS Albuterol/Ipratropium (Albuterol/Iprat 2.5/0.5mg 3 Ml Ampul.Neb) 3 ml INHALE Q4H PRN PRN Reason: for wheezing Amiodarone HCl (Amiodarone Hcl 200 Mg Tablet) 200 mg PO BID [facility] Atorvastatin Calcium (Atorvastatin Calcium 40 Mg Tablet) 40 mg PO DAILY [facility] Last Admin: 12/19/22 08:24 Dose: 40 mg Documented By: CHRISTIANA Carvedilol (Carvedilol 12.5 Mg Tablet) 12.5 mg PO BID [facility]; Protocol Last Admin: 12/19/22 08:24 Dose: 12.5 mg Documented By: CHRISTIANA Diltiazem HCl (Diltiazem Hcl Cd 120 Mg Cap.Er.Deg) 120 mg PO DAILY [facility]; Protocol Last Admin: 12/19/22 08:24 Dose: 120 mg Documented By: CHRISTIANA Docusate Sodium (Docusate Sodium 100 Mg Capsule) 100 mg PO BID [facility] Last Admin: 12/19/22 08:26 Dose: 100 mg Documented By: CHRISTIANA Empagliflozin (Empagliflozin 10 Mg Tablet) 10 mg PO DAILY [facility] Last Admin: 12/19/22 08:25 Dose: 10 mg Documented By: CHRISTIANA Fentanyl (Fentanyl Citrate/Pf 100 Mcg/2 Ml Vial) 25 mcg IVPUSH Q5M PRN; Protocol PRN Reason: Pain, Moderate(Pain Scale 4-6) Last Admin: 12/19/22 15:29 Dose: 25 mcg Documented By: ANTHONY Gabapentin (Gabapentin 300 Mg Capsule) 600 mg PO BEDTIME [facility] Last Admin: 12/18/22 21:05 Dose: 600 mg Documented By: LUCAS Loratadine (Loratadine 10 Mg Tablet) 10 mg PO DAILY [facility] Last Admin: 12/19/22 08:25 Dose: 10 mg Documented By: CHRISTIANA Magnesium Oxide (Magnesium Oxide 400 Mg Tablet) 200 mg PO BEDTIME [facility] Last Admin: 12/18/22 21:05 Dose: 200 mg Documented By: LUCAS Montelukast Sodium (Montelukast Sodium 10 Mg Tablet) 10 mg PO BEDTIME [facility] Last Admin: 12/18/22 21:11 Dose: 10 mg Documented By: LUCAS Morphine Sulfate (Morphine Sulfate 4 Mg/Ml Cartridge) 4 mg IVPUSH Q4H PRN; Protocol PRN Reason: Pain, Severe (Pain Scale 7-10) Last Admin: 12/19/22 06:14 Dose: 4 mg Documented By: LUCAS Multivitamins/Vitamin C (Multivitamin Tablet) 1 tab PO DAILY [facility] Last Admin: 12/19/22 08:24 Dose: 1 tab Documented By: CHRISTIANA Naproxen (Naproxen 500 Mg Tablet) 500 mg PO BID [facility] Last Admin: 12/19/22 08:24 Dose: 500 mg Documented By: CHRISTIANA Omeprazole (Omeprazole 40 Mg Capsule.Dr) 40 mg PO BEDTIME [facility] Last Admin: 12/18/22 21:04 Dose: 40 mg Documented By: LUCAS Ondansetron HCl (Ondansetron Hcl 4 Mg/2 Ml Vial) 4 mg IVPUSH Q8H PRN PRN Reason: Nausea and Vomiting Last Admin: 12/18/22 14:23 Dose: 4 mg Documented By: FOUZIA Sodium Chloride (0.9 % Sodium Chloride Flush 3 Ml Syringe) 3 ml IVFLUSH QSHIFT [facility] Last Admin: 12/19/22 08:23 Dose: 3 ml Documented By: CHRISTIANA Labs 12/19/22 05:49 12/19/22 05:49 Labs: Laboratory Results - last 24 hr 12/18/22 12/19/22 12/19/22 22:44 05:49 05:49 MCV 101.8 H MCH 32.3 MCHC 31.8 RDW 11.8 Plt Count 142 L MPV 9.5 Absolute Nucleated RBC 0.000 Nucleated RBC % (auto) 0.0 Anion Gap 11 L Estim Creat Clear Calc 49.4 Estimated GFR 53 Random Glucose 123 H Calcium 8.3 L Blood Type O Positive Antibody Screen NEGATIVE Assessment and Plan (1) Left displaced femoral neck fracture: Status: Acute (2) Closed fracture dislocation of left shoulder: Status: Acute Plan Pt is a 77-year-old female with a PMH significant for?paroxysmal AFib on Xarelto, HFpEF, essential HTN, moderate persistent asthma, and pulmonary hypertension who presents to the ED with?continued pain in her left shoulder/hand and left groin/hip after a slip and fall at work two days prior. Pt will be admitted to the hospital for surgical repair of left hip fracture. # L hip fx - Cardiology eval today then hip repair today - hold rivaroxaban - Ortho consulted # paroxysmal AF - recurrent CV + ablations - per Cardiology, will give 400 mg amiodarone then 200 mg bid x 4 wk to suppress arrhythmias - continue carvedilol, diltiazem # chronic HFpEF - not in acute exac - hold furosemide + spironolactone due to soft BP # COPD # mod pers asthma - not in acute exac - home inhalers # HTN - carvedilol, diltiazem # HLD - statin # GERD - PPI # VTE ppx: rivaroxaban- resume postop # dispo: STR In my clinical judgment, the patient requires continued inpatient hospitalization for the following reasons: operative repair Time Spent With Patient Time: Total time managing care of this patient today __35__ minutes. Quality Stroke Does the patient have a stroke diagnosis?: No VTE Prior VTE?: No VTE Risk Level:: Medical - moderate - high VTE Device Contraindication: N/A - Device Ordered VTE Drug Contraindication: Treatment Not Indicated
[2022-12-19] MEDS: Lactated Ringers 1,000 ML 100 ML IVCONT (17:16)
[2022-12-19] MEDS: ceFAZolin Sodium/Dextrose,Iso 2 GM/50 ML PIGGYBACK IV (19:32)
[2022-12-19] MEDS: Amiodarone HCL 200 MG TABLET PO (20:45)
[2022-12-19] MEDS: Gabapentin 300 MG CAPSULE 600 MG PO (20:45)
[2022-12-19] MEDS: Montelukast Sodium 10 MG TABLET PO (20:46)
[2022-12-19] MEDS: Magnesium Oxide 400 MG TABLET 200 MG PO (20:47)
[2022-12-19] MEDS: Omeprazole 40 MG CAPSULE.DR PO (20:49)
[2022-12-19] MEDS: Celecoxib 200 MG CAPSULE PO (20:49)
[2022-12-19] MEDS: oxyCODONE HCl ER 10 MG TAB.ER.12H PO (23:12)
[2022-12-20] VITALS (7 sets, daily range): BP systolic 114–162; BP diastolic 55–73; PULSE 69–75; RESP 17–18; TEMP 36–36.5; O2SAT 93–97
[2022-12-20] MEDS: Lactated Ringers 1,000 ML 100 ML IVCONT ×2 (03:45→14:03)
[2022-12-20] MEDS: Acetaminophen 325 MG TABLET 650 MG PO ×3 (05:34→22:08)
[2022-12-20 06:19] LABS: MANUAL DIFF FLAG NO
[2022-12-20 06:29] LABS: Basophils Percent Auto 0.1 % (0-2); Hemoglobin 9.6 g/dl (12.0-16.0); Imm Gran Abs Auto 0.05 X10*3/uL (0.00-0.03); Imm Gran Pct Auto 0.5 % (0.0-0.4); Lymphocytes Absolute Auto 0.6 X10*3/uL (1.2-4.9); Lymphocytes Percent Auto 6.2 % (20-40); Mean Corpuscular HGB Conc 33.1 g/dl (31.0-35.0); Mean Corpuscular Hemoglobin 32.8 pg (27.0-33.0); Mean Platelet Volume 9.5 fL (9.4-12.3); Monocytes Absolute Auto 0.8 X10*3/uL (0.1-1.2); Monocytes Percent Auto 7.8 % (2-11); Neutrophils Absolute Auto 8.4 x10*3/uL (2.0-8.3); Neutrophils Percent Auto 85.4 % (45-73); Platelet Count 158 X10*3/uL (160-400); Red Blood Count 2.93 X10*6/uL (4.20-5.50); Red Cell Distribution Width 11.7 % (11.0-16.0); White Blood Count 9.9 X10*3/uL (4.8-10.8)
[2022-12-20 06:38] LABS: Anion Gap 11 (12-20); Blood Urea Nitrogen 29 mg/dL (9-16); Calcium 8.2 mg/dL (8.4-10.2); Carbon Dioxide 22 mmol/L (22-29); Chloride 110 mmol/L (96-108); Creatinine Clr Calc Pharmacy 57.3; Estimated Glomerular Filt Rate > 60; Glucose Fasting 115 mg/dL (60-99); Glucose Random 115 mg/dL (60-115); Potassium 4.8 mmol/L (3.3-5.1); Sodium 138 mmol/L (135-145)
[2022-12-20 07:44] LABS: Magnesium 2.5 mg/dL (1.6-2.6)
[2022-12-20] MEDS: oxyCODONE HCl ER 10 MG TAB.ER.12H PO ×2 (08:23→21:42)
[2022-12-20] MEDS: Loratadine 10 MG TABLET PO (08:24)
[2022-12-20] MEDS: NaPROXEN 500 MG TABLET PO ×2 (08:24→21:41)
[2022-12-20] MEDS: Multivitamin TABLET 1 TAB PO (08:24)
[2022-12-20] MEDS: carvediloL 12.5 MG TABLET PO ×2 (08:24→21:40)
[2022-12-20] MEDS: Atorvastatin Calcium 40 MG TABLET PO (08:24)
[2022-12-20] MEDS: Amiodarone HCL 200 MG TABLET PO ×2 (08:24→21:40)
[2022-12-20] MEDS: Empagliflozin 10 MG TABLET PO (08:24)
[2022-12-20] MEDS: dilTIAZem HCL CD 120 MG CAP.ER.DEG PO (08:24)
[2022-12-20] MEDS: Docusate Sodium 100 MG CAPSULE PO ×2 (08:25→21:41)
[2022-12-20] MEDS: Celecoxib 200 MG CAPSULE PO ×2 (08:30→21:40)
--- NOTE | 2022-12-20 09:31 | P.PNIM_ITS ---
Subjective Subjective Date of Service: 12/20/22 Interval History: POD#1 No lightheadedness/palpitations/chest pain/dyspnea Pain controlled Review of Systems Review of Systems: Yes all other systems are reviewed and are negative Physical Exam Vital Signs: Vital Signs: Last Vital Signs Temp 97.6 F 12/20/22 08:04 Pulse 72 12/20/22 08:27 Resp 18 12/20/22 08:04 BP 162/73 H 12/20/22 08:27 Pulse Ox 97 12/20/22 08:27 O2 Del Method Nasal Cannula 12/20/22 08:04 O2 Flow Rate 2.0 12/20/22 08:04 BMI result Body Mass Index 31.1 Gen: in no acute distress HEENT: sclera anicteric, moist mucus membranes Neck: supple Lungs: clear to auscultation bilaterally Heart: regular rate and rhythm, no murmurs Abd: soft, non-tender, non-distended Ext: LUE in sling, L hip with dry bandage, distally N/V intact Skin: warm/well-perfused Neuro: alert and oriented x3, no focal findings Psych: appropriate affect Objective Data Active Medications Acetaminophen (Acetaminophen 325 Mg Tablet) 650 mg PO Q8H [facility] Last Admin: 12/20/22 05:34 Dose: 650 mg Documented By: RENAN Albuterol/Ipratropium (Albuterol/Iprat 2.5/0.5mg 3 Ml Ampul.Neb) 3 ml INHALE Q4H PRN PRN Reason: for wheezing Amiodarone HCl (Amiodarone Hcl 200 Mg Tablet) 200 mg PO BID [facility] Last Admin: 12/20/22 08:24 Dose: 200 mg Documented By: CHRISTIANA Atorvastatin Calcium (Atorvastatin Calcium 40 Mg Tablet) 40 mg PO DAILY [facility] Last Admin: 12/20/22 08:24 Dose: 40 mg Documented By: CHRISTIANA Carvedilol (Carvedilol 12.5 Mg Tablet) 12.5 mg PO BID [facility]; Protocol Last Admin: 12/20/22 08:24 Dose: 12.5 mg Documented By: CHRISTIANA Celecoxib (Celecoxib 200 Mg Capsule) 200 mg PO BID [facility] Last Admin: 12/20/22 08:30 Dose: 200 mg Documented By: CHRISTIANA Diltiazem HCl (Diltiazem Hcl Cd 120 Mg Cap.Er.Deg) 120 mg PO DAILY [facility]; Protocol Last Admin: 12/20/22 08:24 Dose: 120 mg Documented By: CHRISTIANA Docusate Sodium (Docusate Sodium 100 Mg Capsule) 100 mg PO BID [facility] Last Admin: 12/20/22 08:25 Dose: 100 mg Documented By: CHRISTIANA Empagliflozin (Empagliflozin 10 Mg Tablet) 10 mg PO DAILY [facility] Last Admin: 12/20/22 08:24 Dose: 10 mg Documented By: CHRISTIANA Gabapentin (Gabapentin 300 Mg Capsule) 600 mg PO BEDTIME [facility] Last Admin: 12/19/22 20:45 Dose: 600 mg Documented By: RENAN Hydromorphone HCl (Hydromorphone Hcl 0.5 Mg/0.5 Ml Syringe) 0.25 mg IVPUSH Q4H PRN; Protocol PRN Reason: Pain, Severe (Pain Scale 7-10) Lactated Ringer's (Lr) 1,000 mls @ 100 mls/hr IVCONT .Q10H [facility] Last Admin: 12/20/22 03:45 Dose: 100 mls/hr Documented By: RENAN Loratadine (Loratadine 10 Mg Tablet) 10 mg PO DAILY [facility] Last Admin: 12/20/22 08:24 Dose: 10 mg Documented By: CHRISTIANA Magnesium Oxide (Magnesium Oxide 400 Mg Tablet) 200 mg PO BEDTIME [facility] Last Admin: 12/19/22 20:47 Dose: 200 mg Documented By: RENAN Montelukast Sodium (Montelukast Sodium 10 Mg Tablet) 10 mg PO BEDTIME [facility] Last Admin: 12/19/22 20:46 Dose: 10 mg Documented By: RENAN Multivitamins/Vitamin C (Multivitamin Tablet) 1 tab PO DAILY [facility] Last Admin: 12/20/22 08:24 Dose: 1 tab Documented By: CHRISTIANA Naproxen (Naproxen 500 Mg Tablet) 500 mg PO BID [facility] Last Admin: 12/20/22 08:24 Dose: 500 mg Documented By: CHRISTIANA Omeprazole (Omeprazole 40 Mg Capsule.Dr) 40 mg PO BEDTIME [facility] Last Admin: 12/19/22 20:49 Dose: 40 mg Documented By: RENAN Ondansetron HCl (Ondansetron Hcl 4 Mg/2 Ml Vial) 4 mg IVPUSH Q8H PRN PRN Reason: Nausea and Vomiting Last Admin: 12/18/22 14:23 Dose: 4 mg Documented By: FOUZIA Oxycodone HCl (Oxycodone Hcl Immed Release 5 Mg Tablet) 5 mg PO Q4H PRN PRN Reason: Pain, Moderate(Pain Scale 4-6) Oxycodone HCl (Oxycodone Hcl Er 10 Mg Tab.Er.12h) 10 mg PO BID [facility] Last Admin: 12/20/22 08:23 Dose: 10 mg Documented By: CHRISTIANA Sodium Chloride (0.9 % Sodium Chloride Flush 3 Ml Syringe) 3 ml IVFLUSH [facility] Last Admin: 12/20/22 07:45 Dose: Not Given Documented By: CHRISTIANA Non-Admin Reason: IV Running Sodium Chloride (0.9 % Sodium Chloride Flush 3 Ml Syringe) 3 ml IVFLUSH [facility] Last Admin: 12/20/22 07:45 Dose: Not Given Documented By: CHRISTIANA Non-Admin Reason: IV Running Labs 12/20/22 06:01 12/20/22 06:01 Labs: Laboratory Results - last 24 hr 12/20/22 12/20/22 06:01 06:01 MCV 99.0 H MCH 32.8 MCHC 33.1 RDW 11.7 Plt Count 158 L MPV 9.5 Immature Gran % (Auto) 0.5 H Neut % (Auto) 85.4 H Lymph % (Auto) 6.2 L [place] % (Auto) 7.8 Eos % (Auto) 0.0 Baso % (Auto) 0.1 Lymph # (Auto) 0.6 L [place] # (Auto) 0.8 Eos # (Auto) 0.0 Baso # (Auto) 0.0 Abs Immat Gran (auto) 0.05 H Absolute Neuts (auto) 8.4 H Absolute Nucleated RBC 0.000 Nucleated RBC % (auto) 0.0 Anion Gap 11 L Estim Creat Clear Calc 57.3 Estimated GFR > 60 Random Glucose 115 Fasting Glucose 115 H Calcium 8.2 L Magnesium 2.5 Assessment and Plan (1) Left displaced femoral neck fracture: Status: Acute (2) Closed fracture dislocation of left shoulder: Status: Acute Plan d#2 Pt is a 77-year-old female with a PMH significant for?paroxysmal AFib on Xarelto, HFpEF, essential HTN, moderate persistent asthma, and pulmonary hypertension who presents to the ED with?continued pain in her left shoulder/hand and left groin/hip after a slip and fall at work two days prior. Pt will be admitted to the hospital for surgical repair of left hip fracture. # L hip fx - POD#1 L hemiarthroplasty - resume Xarelto # paroxysmal AF - recurrent cardioversions + ablations - per legal consultant, gave 400 mg amiodarone then 200 mg bid x 4 wk to suppress arrhythmias - continue carvedilol, diltiazem # chronic HFpEF - not in acute exac - resume furosemide + spironolactone # COPD # mod pers asthma - not in acute exac - home inhalers # HTN - carvedilol, diltiazem # HLD - statin # GERD - PPI # VTE ppx: rivaroxaban # dispo: STR In my clinical judgment, the patient requires continued inpatient hospitalization for the following reasons: operative repair Time Spent With Patient Time: Total time managing care of this patient today ___35_ minutes. Quality Stroke Does the patient have a stroke diagnosis?: No VTE Prior VTE?: No VTE Risk Level:: Medical - moderate - high VTE Device Contraindication: N/A - Device Ordered VTE Drug Contraindication: Treatment Not Indicated
--- NOTE | 2022-12-20 09:49 | HO.POSTANES ---
Post Anesthesia Evaluation Post Anesthesia Evaluation Vital Signs: Vital Signs Temp Pulse Resp BP Pulse Ox O2 Del Method O2 Flow Rate 12/20/22 08:27 72 162/73 H 97 12/20/22 08:04 97.6 F 72 18 162/73 H 97 Nasal Cannula 2.0 12/20/22 03:25 97.1 F 69 17 137/63 95 Nasal Cannula 3 12/19/22 23:31 96.9 F 70 17 126/59 L 95 Nasal Cannula 3 Anesthesia: General Endotracheal-GETA Mental Status: Awake Pain Control: Satisfactory Nausea/Vomiting: None Hydration: Adequate Anesthesia-Related Issues: No Anes. Related Issues
--- NOTE | 2022-12-20 09:54 | PM.PNORT ---
Subjective Subjective Date of Service: 12/20/22 Interval history: POD1 s/p left hip trina. Patient is resting comfortably in the recliner. No overnight events. Pain is managed. No additional complaints. Physical Exam Vital Signs: Vital Signs: Last Vital Signs Temp 97.6 F 12/20/22 08:04 Pulse 72 12/20/22 08:27 Resp 18 12/20/22 08:04 BP 162/73 H 12/20/22 08:27 Pulse Ox 97 12/20/22 08:27 O2 Del Method Nasal Cannula 12/20/22 08:04 O2 Flow Rate 2.0 12/20/22 08:04 BMI result Body Mass Index 31.1 Const: General: cooperative, healthy appearing and no acute distress Resp: Effort & Inspection: normal respiratory effort and able to speak in complete sentences Cardio: Rate: regular rate Peripheral pulses: Peripheral pulses 2+ throughout GI: Palpation (GI): Soft to palpation Skin: Lesions: no lesions Rashes: no rashes Extrem: Other: Left hip Aquaccel is c/d/i. Able to dosri and plantarflex. reports numbness on the plantar aspect and lateral aspect of the foot. Pedal pulse intact. Procedures Date of Service Date of Service: 12/20/22 Progress Note: A&P Assessment and plan (1) S/P hip hemiarthroplasty: Status: Acute Assessment and Plan: Continue pain mgmnt Resume Xerelto for dvt ppx begin PT for Left hip hemiarthroplasty Left shoulder sling at all times -May could out to work on elbow hand and wrist ROM -Repeat x-rays ordered Dispo planning-Pending PT eval, pain mgmnt (2) Left displaced femoral neck fracture: Status: Acute (3) Paroxysmal atrial fibrillation: Status: Acute (4) Chronic heart failure with preserved ejection fraction (HFpEF): Status: Acute (5) Pulmonary hypertension: Status: Acute Time Spent With Patient Time: Total time managing care of this patient today ____ minutes. Quality Stroke Does the patient have a stroke diagnosis?: No VTE Prior VTE?: No VTE Risk Level:: Medical - moderate - high VTE Device Contraindication: N/A - Device Ordered VTE Drug Contraindication: Treatment Not Indicated
[2022-12-20] MEDS: Spironolactone 25 MG TABLET PO (10:05)
[2022-12-20] MEDS: Rivaroxaban 20 MG TABLET PO (16:55)
--- NOTE | 2022-12-20 18:17 | PC.NURSE ---
Trialed patient on room air. SaO2 decreased to 89-90. Patient put back to 3 liters via nasal cannula. Will trial again tomorrow.
[2022-12-20] MEDS: Gabapentin 300 MG CAPSULE 600 MG PO (21:39)
[2022-12-20] MEDS: Montelukast Sodium 10 MG TABLET PO (21:40)
[2022-12-20] MEDS: Omeprazole 40 MG CAPSULE.DR PO (21:40)
[2022-12-20] MEDS: Magnesium Oxide 400 MG TABLET 200 MG PO (21:41)
[2022-12-21] VITALS (7 sets, daily range): BP systolic 91–118; BP diastolic 49–56; PULSE 62–75; RESP 15–18; TEMP 36.1–37; O2SAT 88–97
[2022-12-21] MEDS: Lactated Ringers 1,000 ML 100 ML IVCONT (02:52)
[2022-12-21] MEDS: Acetaminophen 325 MG TABLET 650 MG PO ×2 (05:43→14:38)
[2022-12-21 06:10] LABS: MANUAL DIFF FLAG NO
[2022-12-21 06:11] LABS: Basophils Percent Auto 0.3 % (0-2); Eosinophils Absolute Auto 0.2 X10*3/uL (0.0-0.4); Eosinophils Percent Auto 1.8 % (0-4); Hematocrit 25.4 % (37.0-47.0); Hemoglobin 8.6 g/dl (12.0-16.0); Imm Gran Abs Auto 0.06 X10*3/uL (0.00-0.03); Imm Gran Pct Auto 0.7 % (0.0-0.4); Lymphocytes Absolute Auto 1.1 X10*3/uL (1.2-4.9); Lymphocytes Percent Auto 12.6 % (20-40); Mean Corpuscular HGB Conc 33.9 g/dl (31.0-35.0); Mean Corpuscular Hemoglobin 33.9 pg (27.0-33.0); Mean Platelet Volume 9.6 fL (9.4-12.3); Monocytes Percent Auto 11.1 % (2-11); Neutrophils Absolute Auto 6.6 x10*3/uL (2.0-8.3); Neutrophils Percent Auto 73.5 % (45-73); Platelet Count 144 X10*3/uL (160-400); Red Blood Count 2.54 X10*6/uL (4.20-5.50); Red Cell Distribution Width 12.2 % (11.0-16.0)
[2022-12-21 06:27] LABS: Anion Gap 12 (12-20); Blood Urea Nitrogen 30 mg/dL (9-16); Calcium 7.8 mg/dL (8.4-10.2); Carbon Dioxide 24 mmol/L (22-29); Chloride 109 mmol/L (96-108); Creatinine Clr Calc Pharmacy 61.5; Estimated Glomerular Filt Rate > 60; Glucose Fasting 103 mg/dL (60-99); Glucose Random 103 mg/dL (60-115); Magnesium 2.6 mg/dL (1.6-2.6); Potassium 4.5 mmol/L (3.3-5.1); Sodium 140 mmol/L (135-145)
[2022-12-21] MEDS: carvediloL 12.5 MG TABLET PO ×2 (08:34→19:33)
[2022-12-21] MEDS: Empagliflozin 10 MG TABLET PO (08:34)
[2022-12-21] MEDS: dilTIAZem HCL CD 120 MG CAP.ER.DEG PO (08:34)
[2022-12-21] MEDS: Spironolactone 25 MG TABLET PO (08:34)
[2022-12-21] MEDS: Ascorbic Acid 500 MG TABLET PO (08:34)
[2022-12-21] MEDS: Furosemide 40 MG TABLET PO (08:34)
[2022-12-21] MEDS: Docusate Sodium 100 MG CAPSULE PO ×2 (08:34→19:50)
[2022-12-21] MEDS: Atorvastatin Calcium 40 MG TABLET PO (08:34)
[2022-12-21] MEDS: Loratadine 10 MG TABLET PO (08:35)
[2022-12-21] MEDS: Cholecalciferol (Vitamin D3) 25 MCG TABLET 50 MCG PO (08:35)
[2022-12-21] MEDS: Celecoxib 200 MG CAPSULE PO ×2 (08:35→19:33)
[2022-12-21] MEDS: Amiodarone HCL 200 MG TABLET PO ×2 (08:35→11:11)
[2022-12-21] MEDS: Multivitamin TABLET 1 TAB PO (08:35)
[2022-12-21] MEDS: NaPROXEN 500 MG TABLET PO ×2 (08:35→19:34)
[2022-12-21] MEDS: oxyCODONE HCl ER 10 MG TAB.ER.12H PO ×2 (08:36→19:35)
--- NOTE | 2022-12-21 09:22 | HO.PM.IMPN ---
Subjective Subjective Date of Service: 12/21/22 Interval History: pain controlled no chest pain/palpitations no dyspnea Review of Systems Review of Systems: Yes all other systems are reviewed and are negative Physical Exam Vital Signs: Vital Signs: Last Vital Signs Temp 98.6 F 12/21/22 08:02 Pulse 62 12/21/22 08:02 Resp 17 12/21/22 08:02 BP 118/56 L 12/21/22 08:02 Pulse Ox 95 12/21/22 08:02 O2 Del Method Nasal Cannula 12/21/22 08:02 O2 Flow Rate 3.0 12/21/22 08:02 BMI result Body Mass Index 31.1 Gen: in no acute distress HEENT: sclera anicteric, moist mucus membranes Neck: supple Lungs: clear to auscultation bilaterally Heart: regular rate and rhythm, no murmurs Abd: soft, non-tender, non-distended Ext: LUE in sling, L hip with dry bandage, distally N/V intact Skin: warm/well-perfused Neuro: alert and oriented x3, no focal findings Psych: appropriate affect Objective Data Active Medications Acetaminophen (Acetaminophen 325 Mg Tablet) 650 mg PO Q8H [facility] Last Admin: 12/21/22 05:43 Dose: 650 mg Documented By: RENAN Albuterol/Ipratropium (Albuterol/Iprat 2.5/0.5mg 3 Ml Ampul.Neb) 3 ml INHALE Q4H PRN PRN Reason: for wheezing Amiodarone HCl (Amiodarone Hcl 200 Mg Tablet) 200 mg PO BID [facility] Last Admin: 12/21/22 08:35 Dose: 200 mg Documented By: CHRISTIANA Ascorbic Acid (Ascorbic Acid 500 Mg Tablet) 500 mg PO DAILY [facility] Last Admin: 12/21/22 08:34 Dose: 500 mg Documented By: CHRISTIANA Atorvastatin Calcium (Atorvastatin Calcium 40 Mg Tablet) 40 mg PO DAILY [facility] Last Admin: 12/21/22 08:34 Dose: 40 mg Documented By: CHRISTIANA Carvedilol (Carvedilol 12.5 Mg Tablet) 12.5 mg PO BID [facility]; Protocol Last Admin: 12/21/22 08:34 Dose: 12.5 mg Documented By: CHRISTIANA Celecoxib (Celecoxib 200 Mg Capsule) 200 mg PO BID [facility] Last Admin: 12/21/22 08:35 Dose: 200 mg Documented By: CHRISTIANA Diltiazem HCl (Diltiazem Hcl Cd 120 Mg Cap.Er.Deg) 120 mg PO DAILY [facility]; Protocol Last Admin: 12/21/22 08:34 Dose: 120 mg Documented By: CHRISTIANA Docusate Sodium (Docusate Sodium 100 Mg Capsule) 100 mg PO BID [facility] Last Admin: 12/21/22 08:34 Dose: 100 mg Documented By: CHRISTIANA Empagliflozin (Empagliflozin 10 Mg Tablet) 10 mg PO DAILY [facility] Last Admin: 12/21/22 08:34 Dose: 10 mg Documented By: CHRISTIANA Furosemide (Furosemide 40 Mg Tablet) 40 mg PO DAILY [facility]; Protocol Last Admin: 12/21/22 08:34 Dose: 40 mg Documented By: CHRISTIANA Gabapentin (Gabapentin 300 Mg Capsule) 600 mg PO BEDTIME [facility] Last Admin: 12/20/22 21:39 Dose: 600 mg Documented By: RENAN Hydromorphone HCl (Hydromorphone Hcl 0.5 Mg/0.5 Ml Syringe) 0.25 mg IVPUSH Q4H PRN; Protocol PRN Reason: Pain, Severe (Pain Scale 7-10) Loratadine (Loratadine 10 Mg Tablet) 10 mg PO DAILY [facility] Last Admin: 12/21/22 08:35 Dose: 10 mg Documented By: CHRISTIANA Magnesium Oxide (Magnesium Oxide 400 Mg Tablet) 200 mg PO BEDTIME [facility] Last Admin: 12/20/22 21:41 Dose: 200 mg Documented By: RENAN Montelukast Sodium (Montelukast Sodium 10 Mg Tablet) 10 mg PO BEDTIME [facility] Last Admin: 12/20/22 21:40 Dose: 10 mg Documented By: RENAN Multivitamins/Vitamin C (Multivitamin Tablet) 1 tab PO DAILY [facility] Last Admin: 12/21/22 08:35 Dose: 1 tab Documented By: CHRISTIANA Naproxen (Naproxen 500 Mg Tablet) 500 mg PO BID [facility] Last Admin: 12/21/22 08:35 Dose: 500 mg Documented By: CHRISTIANA Omeprazole (Omeprazole 40 Mg Capsule.Dr) 40 mg PO BEDTIME [facility] Last Admin: 12/20/22 21:40 Dose: 40 mg Documented By: RENAN Ondansetron HCl (Ondansetron Hcl 4 Mg/2 Ml Vial) 4 mg IVPUSH Q8H PRN PRN Reason: Nausea and Vomiting Last Admin: 12/18/22 14:23 Dose: 4 mg Documented By: FOUZIA Oxycodone HCl (Oxycodone Hcl Immed Release 5 Mg Tablet) 5 mg PO Q4H PRN PRN Reason: Pain, Moderate(Pain Scale 4-6) Oxycodone HCl (Oxycodone Hcl Er 10 Mg Tab.Er.12h) 10 mg PO BID [facility] Last Admin: 12/21/22 08:36 Dose: 10 mg Documented By: CHRISTIANA Rivaroxaban (Rivaroxaban 20 Mg Tablet) 20 mg PO DAILY@1700 [facility] Last Admin: 12/20/22 16:55 Dose: 20 mg Documented By: CHRISTIANA Sodium Chloride (0.9 % Sodium Chloride Flush 3 Ml Syringe) 3 ml IVFLUSH [facility] Last Admin: 12/21/22 08:40 Dose: Not Given Documented By: CHRISTIANA Non-Admin Reason: IV Running Sodium Chloride (0.9 % Sodium Chloride Flush 3 Ml Syringe) 3 ml IVFLUSH [facility] Last Admin: 12/21/22 08:40 Dose: Not Given Documented By: CHRISTIANA Non-Admin Reason: IV Running Spironolactone (Spironolactone 25 Mg Tablet) 25 mg PO DAILY [facility]; Protocol Last Admin: 12/21/22 08:34 Dose: 25 mg Documented By: CHRISTIANA Vitamin D (Cholecalciferol (Vitamin D3) 25 Mcg Tablet) 50 mcg PO DAILY [facility] Last Admin: 12/21/22 08:35 Dose: 50 mcg Documented By: CHRISTIANA Labs 12/21/22 05:12 12/21/22 05:12 Labs: Laboratory Results - last 24 hr 12/21/22 12/21/22 05:12 05:12 MCV 100.0 H MCH 33.9 H MCHC 33.9 RDW 12.2 Plt Count 144 L MPV 9.6 Immature Gran % (Auto) 0.7 H Neut % (Auto) 73.5 H Lymph % (Auto) 12.6 L [place] % (Auto) 11.1 H Eos % (Auto) 1.8 Baso % (Auto) 0.3 Lymph # (Auto) 1.1 L [place] # (Auto) 1.0 Eos # (Auto) 0.2 Baso # (Auto) 0.0 Abs Immat Gran (auto) 0.06 H Absolute Neuts (auto) 6.6 Absolute Nucleated RBC 0.000 Nucleated RBC % (auto) 0.0 Anion Gap 12 Estim Creat Clear Calc 61.5 Estimated GFR > 60 Random Glucose 103 Fasting Glucose 103 H Calcium 7.8 L Magnesium 2.6 Assessment and Plan (1) Left displaced femoral neck fracture: Status: Acute (2) Closed fracture dislocation of left shoulder: Status: Acute Plan d#3 77-year-old female with a PMH significant for?paroxysmal AFib on Xarelto, HFpEF, essential HTN, moderate persistent asthma, and pulmonary hypertension who presents to the ED with?continued pain in her left shoulder/hand and left groin/hip after a slip and fall at work two days prior. Pt was admitted to the hospital for surgical repair of left hip fracture. # L hip fx - POD#2 L hemiarthroplasty - resumed Xarelto - PT - Ortho f/u # L humerus fx - sling, stable on X-ray - Ortho f/u # paroxysmal AF - recurrent cardioversions + ablations - per aerodynamic consultant, gave 400 mg amiodarone then 200 mg bid x 4 wk to suppress arrhythmias - continue carvedilol, diltiazem - had brief bursts of pAF that self-terminated # chronic HFpEF - not in acute exac - resume furosemide + spironolactone # COPD # mod pers asthma - not in acute exac - home inhalers # HTN - carvedilol, diltiazem # HLD - statin # GERD - PPI # VTE ppx: rivaroxaban # dispo: STR vs [facility] In my clinical judgment, the patient requires continued inpatient hospitalization for the following reasons: postop care Time Spent With Patient Time: Total time managing care of this patient today ___35_ minutes. Quality Stroke Does the patient have a stroke diagnosis?: No VTE Prior VTE?: No VTE Risk Level:: Medical - moderate - high VTE Device Contraindication: N/A - Device Ordered VTE Drug Contraindication: Treatment Not Indicated
--- NOTE | 2022-12-21 09:37 | PM.PNORT ---
Subjective Subjective Date of Service: 12/21/22 Interval history: POD2 s/p left hip trina. Patient is resting comfortably in the bed. No overnight events. Pain is managed. No additional complaints. Physical Exam Vital Signs: Vital Signs: Last Vital Signs Temp 98.6 F 12/21/22 08:02 Pulse 62 12/21/22 08:02 Resp 17 12/21/22 08:02 BP 118/56 L 12/21/22 08:02 Pulse Ox 95 12/21/22 08:02 O2 Del Method Nasal Cannula 12/21/22 08:02 O2 Flow Rate 3.0 12/21/22 08:02 BMI result Body Mass Index 31.1 Const: General: cooperative, healthy appearing and no acute distress Resp: Effort & Inspection: normal respiratory effort and able to speak in complete sentences Cardio: Rate: regular rate Peripheral pulses: Peripheral pulses 2+ throughout GI: Palpation (GI): Soft to palpation Skin: Lesions: no lesions Rashes: no rashes Extrem: Other: Left hip Aquaccel is c/d/i. Able to dosri and plantarflex. Reports numbness on the plantar aspect and lateral aspect of the foot. Pedal pulse intact. Procedures Date of Service Date of Service: 12/21/22 Progress Note: A&P Assessment and plan (1) S/P hip hemiarthroplasty: Status: Acute Assessment and Plan: Continue pain mgmnt Resume Xerelto for dvt ppx Continue PT for Left hip hemiarthroplasty Left shoulder sling at all times -May could out to work on elbow hand and wrist ROM -Repeat x-rays ordered and negative for redislocation Dispo planning-Pending PT eval, pain mgmnt (2) Left displaced femoral neck fracture: Status: Acute (3) Paroxysmal atrial fibrillation: Status: Acute (4) Chronic heart failure with preserved ejection fraction (HFpEF): Status: Acute (5) Pulmonary hypertension: Status: Acute Time Spent With Patient Time: Total time managing care of this patient today ____ minutes. Quality Stroke Does the patient have a stroke diagnosis?: No VTE Prior VTE?: No VTE Risk Level:: Medical - moderate - high VTE Device Contraindication: N/A - Device Ordered VTE Drug Contraindication: Treatment Not Indicated
--- NOTE | 2022-12-21 10:54 | PM.PNCARD ---
Subjective Subjective Date of Service: 12/21/22 Interval history: She states that she feels okay. No new complaints. Review of Systems Review of Systems Yes all other systems are reviewed and are negative Constitutional: Reports as per HPI and Reports no additional constitutional complaints Eyes: Reports as per HPI and Denies no additional eye complaints Denies system reviewed and no additional complaints, except as documented and Reports as per HPI Cardiovascular: Reports as per HPI, Reports no additional cardiovascular complaints, Denies acrocyanosis, Denies cool extremities, Denies chest pain, Denies leg edema, Denies lightheadedness, Denies palpitations and Denies dyspnea Respiratory: Reports as per HPI, Denies no additional respiratory complaints and Denies dyspnea Gastrointestinal: Reports as per HPI and Denies no additional gastrointestinal complaints Genitourinary: Reports as per HPI Musculoskeletal: Reports no additional musculoskeletal complaints and Reports as per HPI Skin/Breast: Reports system reviewed and no additional complaints, except as docu Reports system reviewed and no additional complaints, except as documented and Reports as per HPI Psychiatric: Reports no additional psychiatric complaints and Reports as per HPI Endocrine: Reports no additional endocrine complaints, Reports as per HPI and Denies palpitations Hematologic/Lymphatic: Reports no additional hematologic/lymphatic complaints and Reports as per HPI Allergic/Immunologic: Reports no additional allergic/immunologic complaints and Reports as per HPI Physical Exam Vital Signs: Last Vital Signs Temp 98.6 F 12/21/22 08:02 Pulse 62 12/21/22 08:02 Resp 17 12/21/22 08:02 BP 118/56 L 12/21/22 08:02 Pulse Ox 95 12/21/22 08:02 O2 Del Method Nasal Cannula 12/21/22 08:02 O2 Flow Rate 3.0 12/21/22 08:02 BMI result Body Mass Index 31.1 Const General: comfortable and no acute distress Orientation/consciousness: patient oriented x3 HEENT Other: Unremarkable Head: Yes normal to inspection Neck Neck: Yes normal visual inspection Chest Chest palpation & inspection: normal inspection of the chest Resp Auscultation: clear to auscultation bilaterally Cardio Palpation: normal PMI Heart sounds: S1 normal heart sound present, S2 normal heart sound present, no gallops, no murmurs and no rubs GI Palpation (GI): Soft to palpation Back/Spine/Pelvis Other: unremarkable Skin General skin exam: no rashes or lesions noted Neuro General: patient oriented x3 Extrem General: Yes normal to inspection Psych Mental Status: mental status grossly normal Objective Labs and Meds 12/21/22 05:12 12/21/22 05:12 Lab results: Laboratory Results - last 24 hr 12/21/22 12/21/22 05:12 05:12 WBC 9.0 RBC 2.54 L Hgb 8.6 L Hct 25.4 L MCV 100.0 H MCH 33.9 H MCHC 33.9 RDW 12.2 Plt Count 144 L MPV 9.6 Immature Gran % (Auto) 0.7 H Neut % (Auto) 73.5 H Lymph % (Auto) 12.6 L [place] % (Auto) 11.1 H Eos % (Auto) 1.8 Baso % (Auto) 0.3 Lymph # (Auto) 1.1 L [place] # (Auto) 1.0 Eos # (Auto) 0.2 Baso # (Auto) 0.0 Abs Immat Gran (auto) 0.06 H Absolute Neuts (auto) 6.6 Absolute Nucleated RBC 0.000 Nucleated RBC % (auto) 0.0 Sodium 140 Potassium 4.5 Chloride 109 H Carbon Dioxide 24 Anion Gap 12 BUN 30 H Creatinine 0.81 Estim Creat Clear Calc 61.5 Estimated GFR > 60 Random Glucose 103 Fasting Glucose 103 H Calcium 7.8 L Magnesium 2.6 Imaging Radiologist's impression: Impressions Shoulder X-Ray 12/20/22 10:33 IMPRESSION: No significant change since the most recent prior post reduction radiograph of the left shoulder done on 12/15/2022 at 4:04 PM. Progress Note: A&P Assessment and plan (1) Paroxysmal atrial fibrillation: Status: Acute (2) Left displaced femoral neck fracture: Status: Acute (3) Closed fracture dislocation of left shoulder: Status: Acute Plan Cardiac catheterization the past without any significant CAD. Mild irregularities in circumflex and RCA Last echocardiogram with preserved LVEF. Main issues recurrent atrial fibrillation in spite of numerous cardioversions and ablations in the past. Due to orthopedic issues including fracture/surgery, high likelihood of recurrence. Hence she has been started on amiodarone. Actual duration to be decided. Reported previous intolerance but no other choice at this time. On telemetry, underlying sinus rhythm but very brief runs of probable atrial tach. No clear atrial fibrillation. It seems anticoagulation is also been resume. Follow-up in the clinic post discharge. Obtain EKG Discussed with . Time Spent With Patient Time: Total time managing care of this patient today 50 minutes. This includes time spent in review of chart, laboratory data, imaging studies, review of telemetry, counseling patient, discussion with hospitalist, RN, documentation, coordination of care. Progress Note: Quality Stroke Does the patient have a stroke diagnosis?: No Procedures Date of Service Date of Service: 12/21/22
--- NOTE | 2022-12-21 12:13 | MHC.CM.PN ---
family wants it known that pt may say she has family helpat home but she does not have what she says she has dgter agrees with rehab plan
[2022-12-21] MEDS: 0.9 % Sodium Chloride Flush 3 ML SYRINGE IVFLUSH ×2 (15:55→23:47)
[2022-12-21] MEDS: Rivaroxaban 20 MG TABLET PO (16:26)
[2022-12-21] MEDS: Omeprazole 40 MG CAPSULE.DR PO (19:33)
[2022-12-21] MEDS: Gabapentin 300 MG CAPSULE 600 MG PO (19:33)
[2022-12-21] MEDS: Montelukast Sodium 10 MG TABLET PO (19:33)
[2022-12-21] MEDS: Amiodarone HCL 200 MG TABLET 400 MG PO (19:34)
[2022-12-21] MEDS: Magnesium Oxide 400 MG TABLET 200 MG PO (19:35)
[2022-12-21] MEDS: Simethicone 80 MG TAB.CHEW 160 MG PO (23:45)
--- NOTE | 2022-12-22 | ECG_ITS ---
Test Reason : qtc check, on amio Blood Pressure : / mmHG Vent. Rate : 077 BPM Atrial Rate : 077 BPM P-R Int : 168 ms QRS Dur : 088 ms QT Int : 388 ms P-R-T Axes : 070 027 031 degrees QTc Int : 439 ms Normal sinus rhythm Normal ECG When compared with ECG of 18-DEC-2022 12:10, Nonspecific T wave abnormality no longer evident in Anterior leads Referred By: Tara Mata Electronically Signed By:Rickie Allison
[2022-12-22 03:44] VITALS: BP 106/54; PULSE 76; RESP 17; TEMP 36.2; O2SAT 95
[2022-12-22] MEDS: Acetaminophen 325 MG TABLET 650 MG PO ×2 (06:21→13:18)
[2022-12-22 06:25] LABS: MANUAL DIFF FLAG NO
[2022-12-22 06:28] LABS: Basophils Percent Auto 0.3 % (0-2); Eosinophils Absolute Auto 0.3 X10*3/uL (0.0-0.4); Eosinophils Percent Auto 2.7 % (0-4); Hematocrit 27.3 % (37.0-47.0); Hemoglobin 8.8 g/dl (12.0-16.0); Imm Gran Abs Auto 0.08 X10*3/uL (0.00-0.03); Imm Gran Pct Auto 0.7 % (0.0-0.4); Lymphocytes Absolute Auto 0.9 X10*3/uL (1.2-4.9); Lymphocytes Percent Auto 7.6 % (20-40); Mean Corpuscular HGB Conc 32.2 g/dl (31.0-35.0); Mean Corpuscular Hemoglobin 32.6 pg (27.0-33.0); Mean Corpuscular Volume 101.1 fL (80.0-98.0); Mean Platelet Volume 9.5 fL (9.4-12.3); Monocytes Absolute Auto 1.4 X10*3/uL (0.1-1.2); Monocytes Percent Auto 11.4 % (2-11); Neutrophils Absolute Auto 9.2 x10*3/uL (2.0-8.3); Neutrophils Percent Auto 77.3 % (45-73); Platelet Count 179 X10*3/uL (160-400); Red Cell Distribution Width 12.5 % (11.0-16.0); White Blood Count 11.9 X10*3/uL (4.8-10.8)
[2022-12-22 06:46] LABS: Anion Gap 14 (12-20); Blood Urea Nitrogen 39 mg/dL (9-16); Calcium 7.9 mg/dL (8.4-10.2); Carbon Dioxide 21 mmol/L (22-29); Chloride 108 mmol/L (96-108); Creatinine Clr Calc Pharmacy 47.4; Estimated Glomerular Filt Rate 51; Glucose Fasting 144 mg/dL (60-99); Potassium 4.5 mmol/L (3.3-5.1); Sodium 138 mmol/L (135-145)
[2022-12-22 07:15] VITALS: BP 115/55; PULSE 75; RESP 18; TEMP 36.1; O2SAT 90
--- NOTE | 2022-12-22 08:32 | PM.PNORT ---
Subjective Subjective Date of Service: 12/22/22 Interval history: POD3 s/p left hip trina. Patient is resting comfortably in the bed. No overnight events. Pain is managed. No additional complaints. Physical Exam Vital Signs: Vital Signs: Last Vital Signs Temp 97 F 12/22/22 07:15 Pulse 75 12/22/22 07:15 Resp 18 12/22/22 07:15 BP 115/55 L 12/22/22 07:15 Pulse Ox 90 L 12/22/22 07:15 O2 Del Method Room Air 12/22/22 07:15 O2 Flow Rate 3.0 12/21/22 08:02 BMI result Body Mass Index 31.1 Const: General: cooperative, healthy appearing and no acute distress Resp: Effort & Inspection: normal respiratory effort and able to speak in complete sentences Cardio: Rate: regular rate Peripheral pulses: Peripheral pulses 2+ throughout GI: Palpation (GI): Soft to palpation Skin: Lesions: no lesions Rashes: no rashes Extrem: Other: Left hip Aqu[employer] is c/d/i. Able to dosri and plantarflex. Reports numbness on the plantar aspect and lateral aspect of the foot but has slightly improved. Pedal pulse intact. Procedures Date of Service Date of Service: 12/22/22 Progress Note: A&P Assessment and plan (1) S/P hip hemiarthroplasty: Status: Acute Assessment and Plan: Continue pain mgmnt Continue Xerelto for dvt ppx Continue PT for Left hip hemiarthroplasty Left shoulder sling at all times -May could out to work on elbow hand and wrist ROM Dispo planning-Pain mgmnt, cleared for discharge from orthopeidc standpoint (2) Left displaced femoral neck fracture: Status: Acute (3) Paroxysmal atrial fibrillation: Status: Acute (4) Chronic heart failure with preserved ejection fraction (HFpEF): Status: Acute (5) Pulmonary hypertension: Status: Acute Time Spent With Patient Time: Total time managing care of this patient today ____ minutes. Quality Stroke Does the patient have a stroke diagnosis?: No VTE Prior VTE?: No VTE Risk Level:: Medical - moderate - high VTE Device Contraindication: N/A - Device Ordered VTE Drug Contraindication: Treatment Not Indicated
[2022-12-22] MEDS: Atorvastatin Calcium 40 MG TABLET PO (08:54)
[2022-12-22] MEDS: dilTIAZem HCL CD 120 MG CAP.ER.DEG PO (08:54)
[2022-12-22] MEDS: carvediloL 12.5 MG TABLET PO ×2 (08:55→20:48)
[2022-12-22] MEDS: Empagliflozin 10 MG TABLET PO (08:55)
[2022-12-22] MEDS: Spironolactone 25 MG TABLET PO (08:55)
[2022-12-22] MEDS: Furosemide 40 MG TABLET PO (08:55)
[2022-12-22] MEDS: NaPROXEN 500 MG TABLET PO ×2 (08:55→20:50)
[2022-12-22] MEDS: Multivitamin TABLET 1 TAB PO (08:55)
[2022-12-22] MEDS: Cholecalciferol (Vitamin D3) 25 MCG TABLET 50 MCG PO (08:55)
[2022-12-22] MEDS: Docusate Sodium 100 MG CAPSULE PO ×2 (08:55→20:51)
[2022-12-22] MEDS: Ascorbic Acid 500 MG TABLET PO (08:55)
[2022-12-22] MEDS: Loratadine 10 MG TABLET PO (08:55)
[2022-12-22] MEDS: Amiodarone HCL 200 MG TABLET 400 MG PO ×2 (08:55→20:50)
[2022-12-22] MEDS: oxyCODONE HCl ER 10 MG TAB.ER.12H PO ×2 (08:55→20:49)
[2022-12-22] MEDS: 0.9 % Sodium Chloride Flush 3 ML SYRINGE IVFLUSH ×3 (08:56→20:51)
[2022-12-22] MEDS: Celecoxib 200 MG CAPSULE PO ×2 (08:56→20:48)
--- NOTE | 2022-12-22 11:28 | MHC.CM.PN ---
Clinical updates remitted for STR placement: Dtr requesting [facility] to be included and would be her 1st choice for site followed by Yolande Ortega. CM to await responses and acceptances.
[2022-12-22 13:00] VITALS: BP 98/52; PULSE 74; RESP 19; TEMP 36.6; O2SAT 91
--- NOTE | 2022-12-22 13:18 | HO.PM.IMPN ---
Subjective Subjective Date of Service: 12/22/22 Interval History: pain controlled no palpitations Review of Systems Review of Systems: Yes all other systems are reviewed and are negative Physical Exam Vital Signs: Vital Signs: Last Vital Signs Temp 97 F 12/22/22 07:15 Pulse 75 12/22/22 07:15 Resp 18 12/22/22 07:15 BP 115/55 L 12/22/22 07:15 Pulse Ox 90 L 12/22/22 07:15 O2 Del Method Room Air 12/22/22 07:15 O2 Flow Rate 3.0 12/21/22 08:02 BMI result Body Mass Index 31.1 Gen: in no acute distress HEENT: sclera anicteric, moist mucus membranes Neck: supple Lungs: clear to auscultation bilaterally Heart: regular rate and rhythm, no murmurs Abd: soft, non-tender, non-distended Ext: LUE in sling, L hip with dry bandage, distally N/V intact Skin: warm/well-perfused Neuro: alert and oriented x3, no focal findings Psych: appropriate affect Objective Data Active Medications Acetaminophen (Acetaminophen 325 Mg Tablet) 650 mg PO Q8H [facility] Last Admin: 12/22/22 06:21 Dose: 650 mg Documented By: LILI Albuterol/Ipratropium (Albuterol/Iprat 2.5/0.5mg 3 Ml Ampul.Neb) 3 ml INHALE Q4H PRN PRN Reason: for wheezing Amiodarone HCl (Amiodarone Hcl 200 Mg Tablet) 400 mg PO BID [facility] Last Admin: 12/22/22 08:55 Dose: 400 mg Documented By: ALESSIA Ascorbic Acid (Ascorbic Acid 500 Mg Tablet) 500 mg PO DAILY [facility] Last Admin: 12/22/22 08:55 Dose: 500 mg Documented By: ALESSIA Atorvastatin Calcium (Atorvastatin Calcium 40 Mg Tablet) 40 mg PO DAILY [facility] Last Admin: 12/22/22 08:54 Dose: 40 mg Documented By: ALESSIA Carvedilol (Carvedilol 12.5 Mg Tablet) 12.5 mg PO BID [facility]; Protocol Last Admin: 12/22/22 08:55 Dose: 12.5 mg Documented By: ALESSIA Celecoxib (Celecoxib 200 Mg Capsule) 200 mg PO BID [facility] Last Admin: 12/22/22 08:56 Dose: 200 mg Documented By: ALESSIA Diltiazem HCl (Diltiazem Hcl Cd 120 Mg Cap.Er.Deg) 120 mg PO DAILY [facility]; Protocol Last Admin: 12/22/22 08:54 Dose: 120 mg Documented By: ALESSIA Docusate Sodium (Docusate Sodium 100 Mg Capsule) 100 mg PO BID [facility] Last Admin: 12/22/22 08:55 Dose: 100 mg Documented By: ALESSIA Empagliflozin (Empagliflozin 10 Mg Tablet) 10 mg PO DAILY [facility] Last Admin: 12/22/22 08:55 Dose: 10 mg Documented By: ALESSIA Furosemide (Furosemide 40 Mg Tablet) 40 mg PO DAILY [facility]; Protocol Last Admin: 12/22/22 08:55 Dose: 40 mg Documented By: ALESSIA Gabapentin (Gabapentin 300 Mg Capsule) 600 mg PO BEDTIME [facility] Last Admin: 12/21/22 19:33 Dose: 600 mg Documented By: LILI Hydromorphone HCl (Hydromorphone Hcl 0.5 Mg/0.5 Ml Syringe) 0.25 mg IVPUSH Q4H PRN; Protocol PRN Reason: Pain, Severe (Pain Scale 7-10) Loratadine (Loratadine 10 Mg Tablet) 10 mg PO DAILY [facility] Last Admin: 12/22/22 08:55 Dose: 10 mg Documented By: ALESSIA Magnesium Oxide (Magnesium Oxide 400 Mg Tablet) 200 mg PO BEDTIME [facility] Last Admin: 12/21/22 19:35 Dose: 200 mg Documented By: LILI Montelukast Sodium (Montelukast Sodium 10 Mg Tablet) 10 mg PO BEDTIME [facility] Last Admin: 12/21/22 19:33 Dose: 10 mg Documented By: LILI Multivitamins/Vitamin C (Multivitamin Tablet) 1 tab PO DAILY [facility] Last Admin: 12/22/22 08:55 Dose: 1 tab Documented By: ALESSIA Naproxen (Naproxen 500 Mg Tablet) 500 mg PO BID [facility] Last Admin: 12/22/22 08:55 Dose: 500 mg Documented By: ALESSIA Omeprazole (Omeprazole 40 Mg Capsule.) 40 mg PO BEDTIME [facility] Last Admin: 12/21/22 19:33 Dose: 40 mg Documented By: LILI Ondansetron HCl (Ondansetron Hcl 4 Mg/2 Ml Vial) 4 mg IVPUSH Q8H PRN PRN Reason: Nausea and Vomiting Last Admin: 12/18/22 14:23 Dose: 4 mg Documented By: FOUZIA Oxycodone HCl (Oxycodone Hcl Immed Release 5 Mg Tablet) 5 mg PO Q4H PRN PRN Reason: Pain, Moderate(Pain Scale 4-6) Oxycodone HCl (Oxycodone Hcl Er 10 Mg Tab.Er.12h) 10 mg PO BID [facility] Last Admin: 12/22/22 08:55 Dose: 10 mg Documented By: ALESSIA Rivaroxaban (Rivaroxaban 20 Mg Tablet) 20 mg PO DAILY@1700 [facility] Last Admin: 12/21/22 16:26 Dose: 20 mg Documented By: CHRISTIANA Sodium Chloride (0.9 % Sodium Chloride Flush 3 Ml Syringe) 3 ml IVFLUSH [facility] Last Admin: 12/22/22 08:44 Dose: Not Given Documented By: ALESSIA Non-Admin Reason: Duplicate Order Sodium Chloride (0.9 % Sodium Chloride Flush 3 Ml Syringe) 3 ml IVFLUSH [facility] Last Admin: 12/22/22 08:56 Dose: 3 ml Documented By: ALESSIA Spironolactone (Spironolactone 25 Mg Tablet) 25 mg PO DAILY [facility]; Protocol Last Admin: 12/22/22 08:55 Dose: 25 mg Documented By: ALESSIA Vitamin D (Cholecalciferol (Vitamin D3) 25 Mcg Tablet) 50 mcg PO DAILY [facility] Last Admin: 12/22/22 08:55 Dose: 50 mcg Documented By: ALESSIA Labs 12/22/22 06:17 12/22/22 06:17 Labs: Laboratory Results - last 24 hr 12/22/22 12/22/22 06:17 06:17 MCV 101.1 H MCH 32.6 MCHC 32.2 RDW 12.5 Plt Count 179 MPV 9.5 Immature Gran % (Auto) 0.7 H Neut % (Auto) 77.3 H Lymph % (Auto) 7.6 L [place] % (Auto) 11.4 H Eos % (Auto) 2.7 Baso % (Auto) 0.3 Lymph # (Auto) 0.9 L [place] # (Auto) 1.4 H Eos # (Auto) 0.3 Baso # (Auto) 0.0 Abs Immat Gran (auto) 0.08 H Absolute Neuts (auto) 9.2 H Absolute Nucleated RBC 0.000 Nucleated RBC % (auto) 0.0 Anion Gap 14 Estim Creat Clear Calc 47.4 Estimated GFR 51 Fasting Glucose 144 H Calcium 7.9 L Assessment and Plan (1) Left displaced femoral neck fracture: Status: Acute (2) Closed fracture dislocation of left shoulder: Status: Acute Plan d#4 77-year-old female with a PMH significant for?paroxysmal AFib on Xarelto, HFpEF, essential HTN, moderate persistent asthma, and pulmonary hypertension who presents to the ED with?continued pain in her left shoulder/hand and left groin/hip after a slip and fall at work two days prior. Pt was admitted to the hospital for surgical repair of left hip fracture. # L hip fx - POD#3 L hemiarthroplasty - resumed Xarelto - PT: STR recommended - Ortho f/u # L humerus fx - sling, stable on X-ray - Ortho f/u # paroxysmal AF - recurrent cardioversions + ablations - per industrial methods consultant, gave 400 mg amiodarone then 200 mg bid x 4 wk to suppress arrhythmias - continue carvedilol, diltiazem - had brief bursts of atrial tachycardia that terminated # chronic HFpEF - not in acute exac - resumed furosemide + spironolactone # COPD # mod pers asthma - not in acute exac - home inhalers # HTN - carvedilol, diltiazem # HLD - statin # GERD - PPI # VTE ppx: rivaroxaban # dispo: STR In my clinical judgment, the patient requires continued inpatient hospitalization for the following reasons: STR placement Time Spent With Patient Time: Total time managing care of this patient today _35___ minutes. Quality Stroke Does the patient have a stroke diagnosis?: No VTE Prior VTE?: No VTE Risk Level:: Medical - moderate - high VTE Device Contraindication: N/A - Device Ordered VTE Drug Contraindication: Treatment Not Indicated
[2022-12-22 15:48] VITALS: BP 105/50; PULSE 78; RESP 18; TEMP 36.4; O2SAT 92
[2022-12-22] MEDS: Rivaroxaban 20 MG TABLET PO (16:40)
[2022-12-22 19:42] VITALS: BP 104/50; PULSE 76; RESP 17; TEMP 36.3; O2SAT 92
[2022-12-22] MEDS: Gabapentin 300 MG CAPSULE 600 MG PO (20:48)
[2022-12-22] MEDS: Magnesium Oxide 400 MG TABLET 200 MG PO (20:49)
[2022-12-22] MEDS: Omeprazole 40 MG CAPSULE.DR PO (20:50)
[2022-12-22] MEDS: Montelukast Sodium 10 MG TABLET PO (20:51)
[2022-12-23 03:19] VITALS: BP 95/51; PULSE 68; RESP 16; TEMP 36; O2SAT 94
[2022-12-23 06:33] LABS: Basophils Absolute Auto 0.1 X10*3/uL (0.0-0.2); Basophils Percent Auto 0.5 % (0-2); Eosinophils Absolute Auto 0.4 X10*3/uL (0.0-0.4); Eosinophils Percent Auto 3.5 % (0-4); Hematocrit 25.2 % (37.0-47.0); Hemoglobin 8.1 g/dl (12.0-16.0); Imm Gran Abs Auto 0.13 X10*3/uL (0.00-0.03); Imm Gran Pct Auto 1.1 % (0.0-0.4); Lymphocytes Absolute Auto 0.9 X10*3/uL (1.2-4.9); Lymphocytes Percent Auto 7.6 % (20-40); MANUAL DIFF FLAG SCAN; Mean Corpuscular HGB Conc 32.1 g/dl (31.0-35.0); Mean Corpuscular Hemoglobin 32.5 pg (27.0-33.0); Mean Corpuscular Volume 101.2 fL (80.0-98.0); Mean Platelet Volume 9.5 fL (9.4-12.3); Monocytes Absolute Auto 1.5 X10*3/uL (0.1-1.2); Monocytes Percent Auto 12.6 % (2-11); NRBC Pct Auto 0.2 /100WBC (0.0-0.2); Neutrophils Absolute Auto 9.1 x10*3/uL (2.0-8.3); Neutrophils Percent Auto 74.7 % (45-73); Platelet Count 189 X10*3/uL (160-400); Red Blood Count 2.49 X10*6/uL (4.20-5.50); Red Cell Distribution Width 12.7 % (11.0-16.0); SCAN SMEAR FLAG 1; White Blood Count 12.2 X10*3/uL (4.8-10.8)
[2022-12-23 07:01] LABS: Anion Gap 12 (12-20); Blood Urea Nitrogen 48 mg/dL (9-16); Calcium 7.7 mg/dL (8.4-10.2); Carbon Dioxide 24 mmol/L (22-29); Chloride 107 mmol/L (96-108); Creatinine Clr Calc Pharmacy 37.2; Estimated Glomerular Filt Rate 38; Glucose Fasting 123 mg/dL (60-99); Potassium 4.2 mmol/L (3.3-5.1); Sodium 139 mmol/L (135-145)
[2022-12-23 07:13] VITALS: BP 114/54; PULSE 68; RESP 20; TEMP 36.4; O2SAT 97
--- NOTE | 2022-12-23 07:15 | PM.PNORT ---
Subjective Subjective Date of Service: 12/23/22 Principal diagnosis: left femoral neck fracture Interval history: No overnight events and no complaints. Feeling well Vitals stable Feels improving numbness in left foot Physical Exam Vital Signs: Vital Signs: Last Vital Signs Temp 97.6 F 12/23/22 07:13 Pulse 68 12/23/22 07:13 Resp 20 12/23/22 07:13 BP 114/54 L 12/23/22 07:13 Pulse Ox 97 12/23/22 07:13 O2 Del Method Room Air 12/23/22 07:13 O2 Flow Rate 3.0 12/21/22 08:02 BMI result Body Mass Index 31.1 Extrem: Other: Firing ehl/ta/gc. Bandage with mild staining. Tea present Procedures Date of Service Date of Service: 12/23/22 Progress Note: A&P Assessment and plan (1) S/P hip hemiarthroplasty: Status: Acute Assessment and Plan: Dispo to SNF pending WBAT Continue Xarelto Will change dressing prior to D/C F/u 10-14 days Time Spent With Patient Time: Total time managing care of this patient today ____ minutes. Quality Stroke Does the patient have a stroke diagnosis?: No VTE Prior VTE?: No VTE Risk Level:: Medical - moderate - high VTE Device Contraindication: N/A - Device Ordered VTE Drug Contraindication: Treatment Not Indicated
[2022-12-23 07:37] LABS: SLIDE REVIEW VERIFIED
[2022-12-23] MEDS: Celecoxib 200 MG CAPSULE PO ×2 (08:18→21:00)
[2022-12-23] MEDS: Atorvastatin Calcium 40 MG TABLET PO (08:18)
[2022-12-23] MEDS: 0.9 % Sodium Chloride 1,000 ML 999 ML IV (08:18)
[2022-12-23] MEDS: dilTIAZem HCL CD 120 MG CAP.ER.DEG PO (08:19)
[2022-12-23] MEDS: oxyCODONE HCl ER 10 MG TAB.ER.12H PO ×2 (08:19→20:59)
[2022-12-23] MEDS: Amiodarone HCL 200 MG TABLET 400 MG PO ×2 (08:19→20:53)
[2022-12-23] MEDS: 0.9 % Sodium Chloride Flush 3 ML SYRINGE IVFLUSH ×2 (08:19→23:15)
[2022-12-23] MEDS: Docusate Sodium 100 MG CAPSULE PO ×2 (08:19→20:53)
[2022-12-23] MEDS: Ascorbic Acid 500 MG TABLET PO (08:19)
[2022-12-23] MEDS: Empagliflozin 10 MG TABLET PO (08:19)
[2022-12-23] MEDS: NaPROXEN 500 MG TABLET PO ×2 (08:20→21:00)
[2022-12-23] MEDS: Multivitamin TABLET 1 TAB PO (08:21)
[2022-12-23] MEDS: Spironolactone 25 MG TABLET PO (08:21)
[2022-12-23] MEDS: Loratadine 10 MG TABLET PO (08:21)
[2022-12-23] MEDS: carvediloL 12.5 MG TABLET PO ×2 (08:21→20:54)
[2022-12-23] MEDS: Cholecalciferol (Vitamin D3) 25 MCG TABLET 50 MCG PO (08:21)
--- NOTE | 2022-12-23 09:40 | W.PM.OPN ---
Operative Note Operative Note Date of Service: 12/19/22 Narrative: Date of Service: 12/19/22 Pre-op diagnosis: Left femoral neck fracture Post-op diagnosis: same Procedure: Left hip hemiarthroplasty Implants: Falguni Accolade2 #4 127 deg with +4 26/46 bipolar Surgeon: Leonardo Vizcarra MD Anesthesia: GETA and local Was an Glass Silverer used for this Procedure?: Yes Glass Silverer: Yari Esposito Estimated blood loss (mL): 150 IV fluids (mL): 800 Pathology: other Condition: stable Disposition: PACU Procedure in detail: Patient was brought to the operative room placed in the lateral decubitus position. All bony prominences were well padded and the was prepped and draped in standard sterile fashion. IV antibiotics per weight were administered and a time-out was called to identify proper site proper procedure proper surgeon. Radiographs were available and confirmed. I began by making a curvilinear incision over the posterolateral aspect of the greater trochanter. Dissection was taken down to the tensor fascia which was incised in line with the incision and a Charnley retractor was placed. The hip was internally rotated and the external rotators were identified. All vessels in the area were cauterized and a full-thickness capsular/external rotator layer was developed in a hockey-stick fashion starting just proximal to the piriformis. This layer was tagged and the displaced femoral neck fracture was identified. Clean-up cuts was performed while protection the posterolateral soft tissues and the head was removed and measured (46 mm) on the back table. I then copiously irrigated the acetabulum and removed all bony fragments. Once this was done I used a cookie cutter to lateralize and a Charnley awl to identify the canal and then sequentially broached up to a 127 deg #4. I then trialed with a standard +4 head and a bipolar component matching the femoral head size. I was satisfied with the range of motion and stability and length. Therefore I removed all instrumentation and copiously irrigated. I then placed my final femoral implant and then retrialed. I was satisfied with the +4/46 implant. My final bipolar components were then placed. I closed the capsular layer with FiberWire and then, after a three minute iodine soak, I performed a layered closure with glenda on skin. The patient was placed in sterile dressing extubated brought to recovery room in stable condition there were no known complications.
--- NOTE | 2022-12-23 10:34 | P.PNIM_ITS ---
Subjective Subjective Date of Service: 12/23/22 Interval History: pain controlled some PACs, non-sustained atrial tachycardia, no AF Review of Systems Review of Systems: Yes all other systems are reviewed and are negative Physical Exam Vital Signs: Vital Signs: Last Vital Signs Temp 97.6 F 12/23/22 07:13 Pulse 68 12/23/22 07:13 Resp 20 12/23/22 07:13 BP 114/54 L 12/23/22 07:13 Pulse Ox 97 12/23/22 07:13 O2 Del Method Room Air 12/23/22 07:13 O2 Flow Rate 3.0 12/21/22 08:02 BMI result Body Mass Index 31.1 Gen: in no acute distress HEENT: sclera anicteric, moist mucus membranes Neck: supple Lungs: clear to auscultation bilaterally Heart: regular rate and rhythm, no murmurs Abd: soft, non-tender, non-distended Ext: LUE in sling, L hip with dry bandage, distally N/V intact Skin: warm/well-perfused Neuro: alert and oriented x3, no focal findings Psych: appropriate affect Objective Data Active Medications Acetaminophen (Acetaminophen 325 Mg Tablet) 650 mg PO Q8H [facility] Last Admin: 12/23/22 05:37 Dose: Not Given Documented By: JUWAN Non-Admin Reason: Patient Refused Albuterol/Ipratropium (Albuterol/Iprat 2.5/0.5mg 3 Ml Ampul.Neb) 3 ml INHALE Q4H PRN PRN Reason: for wheezing Amiodarone HCl (Amiodarone Hcl 200 Mg Tablet) 400 mg PO BID [facility] Last Admin: 12/23/22 08:19 Dose: 400 mg Documented By: ALESSIA Ascorbic Acid (Ascorbic Acid 500 Mg Tablet) 500 mg PO DAILY [facility] Last Admin: 12/23/22 08:19 Dose: 500 mg Documented By: ALESSIA Atorvastatin Calcium (Atorvastatin Calcium 40 Mg Tablet) 40 mg PO DAILY [facility] Last Admin: 12/23/22 08:18 Dose: 40 mg Documented By: ALESSIA Carvedilol (Carvedilol 12.5 Mg Tablet) 12.5 mg PO BID [facility]; Protocol Last Admin: 12/23/22 08:21 Dose: 12.5 mg Documented By: ALESSIA Celecoxib (Celecoxib 200 Mg Capsule) 200 mg PO BID [facility] Last Admin: 12/23/22 08:18 Dose: 200 mg Documented By: ALESSIA Diltiazem HCl (Diltiazem Hcl Cd 120 Mg Cap.Er.Deg) 120 mg PO DAILY [facility]; Protocol Last Admin: 12/23/22 08:19 Dose: 120 mg Documented By: ALESSIA Docusate Sodium (Docusate Sodium 100 Mg Capsule) 100 mg PO BID [facility] Last Admin: 12/23/22 08:19 Dose: 100 mg Documented By: ALESSIA Empagliflozin (Empagliflozin 10 Mg Tablet) 10 mg PO DAILY [facility] Last Admin: 12/23/22 08:19 Dose: 10 mg Documented By: ALESSIA Gabapentin (Gabapentin 300 Mg Capsule) 600 mg PO BEDTIME [facility] Last Admin: 12/22/22 20:48 Dose: 600 mg Documented By: SOTOILJa Hydromorphone HCl (Hydromorphone Hcl 0.5 Mg/0.5 Ml Syringe) 0.25 mg IVPUSH Q4H PRN; Protocol PRN Reason: Pain, Severe (Pain Scale 7-10) Loratadine (Loratadine 10 Mg Tablet) 10 mg PO DAILY [facility] Last Admin: 12/23/22 08:21 Dose: 10 mg Documented By: ALESSIA Magnesium Oxide (Magnesium Oxide 400 Mg Tablet) 200 mg PO BEDTIME [facility] Last Admin: 12/22/22 20:49 Dose: 200 mg Documented By: JUWAN Montelukast Sodium (Montelukast Sodium 10 Mg Tablet) 10 mg PO BEDTIME [facility] Last Admin: 12/22/22 20:51 Dose: 10 mg Documented By: JUWAN Multivitamins/Vitamin C (Multivitamin Tablet) 1 tab PO DAILY [facility] Last Admin: 12/23/22 08:21 Dose: 1 tab Documented By: ALESSIA Naproxen (Naproxen 500 Mg Tablet) 500 mg PO BID [facility] Last Admin: 12/23/22 08:20 Dose: 500 mg Documented By: ALESSIA Omeprazole (Omeprazole 40 Mg Capsule.Dr) 40 mg PO BEDTIME [facility] Last Admin: 12/22/22 20:50 Dose: 40 mg Documented By: JUWAN Ondansetron HCl (Ondansetron Hcl 4 Mg/2 Ml Vial) 4 mg IVPUSH Q8H PRN PRN Reason: Nausea and Vomiting Last Admin: 12/18/22 14:23 Dose: 4 mg Documented By: FOUZIA Oxycodone HCl (Oxycodone Hcl Immed Release 5 Mg Tablet) 5 mg PO Q4H PRN PRN Reason: Pain, Moderate(Pain Scale 4-6) Oxycodone HCl (Oxycodone Hcl Er 10 Mg Tab.Er.12h) 10 mg PO BID [facility] Last Admin: 12/23/22 08:19 Dose: 10 mg Documented By: ALESSIA Rivaroxaban (Rivaroxaban 20 Mg Tablet) 20 mg PO DAILY@1700 [facility] Last Admin: 12/22/22 16:40 Dose: 20 mg Documented By: ALESSIA Sodium Chloride (0.9 % Sodium Chloride Flush 3 Ml Syringe) 3 [facility] Last Admin: 12/23/22 08:19 Dose: 3 ml Documented By: ALESSIA Sodium Chloride (0.9 % Sodium Chloride Flush 3 Ml Syringe) 3 ml IVFLUSH [facility] Last Admin: 12/23/22 08:10 Dose: Not Given Documented By: ALESSIA Non-Admin Reason: Duplicate Order Spironolactone (Spironolactone 25 Mg Tablet) 25 mg PO DAILY [facility]; Protocol Last Admin: 12/23/22 08:21 Dose: 25 mg Documented By: ALESSIA Vitamin D (Cholecalciferol (Vitamin D3) 25 Mcg Tablet) 50 mcg PO DAILY [facility] Last Admin: 12/23/22 08:21 Dose: 50 mcg Documented By: ALESSIA Labs 12/23/22 05:25 12/23/22 05:25 Labs: Laboratory Results - last 24 hr 12/23/22 12/23/22 05:25 05:25 MCV 101.2 H MCH 32.5 MCHC 32.1 RDW 12.7 Plt Count 189 MPV 9.5 Immature Gran % (Auto) 1.1 H Neut % (Auto) 74.7 H Lymph % (Auto) 7.6 L [place] % (Auto) 12.6 H Eos % (Auto) 3.5 Baso % (Auto) 0.5 Lymph # (Auto) 0.9 L [place] # (Auto) 1.5 H Eos # (Auto) 0.4 Baso # (Auto) 0.1 Abs Immat Gran (auto) 0.13 H Absolute Neuts (auto) 9.1 H Absolute Nucleated RBC 0.020 H Nucleated RBC % (auto) 0.2 Smear Tech's Comments VERIFIED Anion Gap 12 Estim Creat Clear Calc 37.2 Estimated GFR 38 Fasting Glucose 123 H Calcium 7.7 L Assessment and Plan (1) Left displaced femoral neck fracture: Status: Acute (2) Closed fracture dislocation of left shoulder: Status: Acute Plan d#5 77-year-old female with a PMH significant for?paroxysmal AFib on Xarelto, HFpEF, essential HTN, moderate persistent asthma, and pulmonary hypertension who presents to the ED with?continued pain in her left shoulder/hand and left groin/hip after a slip and fall at work two days prior. Pt was admitted to the hospital for surgical repair of left hip fracture. # L hip fx - POD#4 L hemiarthroplasty - resumed Xarelto - PT: STR recommended - Ortho f/u # L humerus fx - sling, stable on X-ray - Ortho f/u # JUAN M - mild, hold furosemide, give 1L NS, and recheck BMP in 1 wk # paroxysmal AF - recurrent cardioversions + ablations - per clinical practice consultant, amiodarone 400 mg bid to 10g then 200 mg daily to suppress arrhythmias, will need Cardiology f/u - continue carvedilol, diltiazem - had brief bursts of atrial tachycardia that terminated # chronic HFpEF - not in acute exac - spironolactone - hold furosemide as above # COPD # mod pers asthma - not in acute exac - home inhalers # HTN - carvedilol, diltiazem # HLD - statin # GERD - PPI # VTE ppx: rivaroxaban # dispo: STR In my clinical judgment, the patient requires continued inpatient hospitalization for the following reasons: STR placement Time Spent With Patient Time: Total time managing care of this patient today __35__ minutes. Quality Stroke Does the patient have a stroke diagnosis?: No VTE Prior VTE?: No VTE Risk Level:: Medical - moderate - high VTE Device Contraindication: N/A - Device Ordered VTE Drug Contraindication: Treatment Not Indicated
[2022-12-23 12:00] VITALS: BP 101/50; PULSE 68; RESP 20; TEMP 36.6; O2SAT 96
--- NOTE | 2022-12-23 13:40 | MHC.CM.PN ---
[facility] is following. They have requested [facility] contact info. [employer] [employer] depatment [phone] have been provided to the [facility].
[2022-12-23] MEDS: Acetaminophen 325 MG TABLET 650 MG PO ×2 (13:45→21:00)
[2022-12-23 14:46] LABS: COVID-19 Test Negative (Negative); IDNOW Serial# 9DB6401D
[2022-12-23 15:07] LABS: Anion Gap 15 (12-20); Blood Urea Nitrogen 44 mg/dL (9-16); Carbon Dioxide 20 mmol/L (22-29); Chloride 110 mmol/L (96-108); Creatinine Clr Calc Pharmacy 41.2; Estimated Glomerular Filt Rate 43; Glucose Random 126 mg/dL (60-115); Potassium 4.6 mmol/L (3.3-5.1); Sodium 140 mmol/L (135-145)
--- NOTE | 2022-12-23 15:08 | P.DS_ITS ---
DS: Providers Provider Date of Service: 12/23/22 Date of admission: 12/18/22 13:55 Date of discharge: 12/23/22 Primary care physician: Yair Huff MD Consults: 12/18/22 14:05 Consult to Orthopedics Routine Consulting Provider: [facility] Reason for consultation: Left hip fracture Has provider been notified: Yes 12/19/22 08:07 Consult to Cardiology Routine Consulting Provider: [facility] Reason for consultation: HFpEF, AF, preop for L hip fx today DS: Diagnosis Discharge Diagnosis (1) Left displaced femoral neck fracture: Status: Acute (2) Closed fracture dislocation of left shoulder: Status: Acute (3) S/P hip hemiarthroplasty: Status: Acute (4) Paroxysmal atrial fibrillation: Status: Acute (5) JUAN M (acute kidney injury): Status: Acute DS: Summary Hospital Course Hospital Course: from admission H+P by hospitalist MYKEL Vasquez, 12/18/22: Pt is a 77-year-old female with a PMH significant for?paroxysmal AFib on Xarelto, HFpEF, essential HTN, moderate persistent asthma, and pulmonary hypertension who presents to the ED with?continued pain in her left shoulder/hand and left groin/hip after a slip and fall at work two days prior. 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 like a piece of squash. Pt fell on her left side and was seen and evaluated in our ED 5 03/29/2023. Patient was found to have a left shoulder anterior dislocation with humeral greater tuberosity fracture which was reduced in the ED. patient had multiple imaging done including x-rays of shoulder CT of head/C-spine, and CT of abdomen/pelvis. CT of abdomen and pelvis showed moderate degenerate changes of left hip with no acute fracture or dislocation.? Patient was discharged home.? Patient states that she has not been able to bear weight on her left leg since her fall and been unable to ambulate. Has had intense pain in both her left shoulder, hand, and hip.? Repeat imaging today with x-ray of left hip showed acute left hip fracture.? Patient denies any additional history of fall since discharge.? Patient has essentially been bed- bound since then.? Patient denies numbness or tingling in her extremities.? No increasing edema of her lower legs.? Denies any change to her bowel or bladder habits.? Patient denies fever, chills, nausea, vomiting.? No abdominal pain.? Denies chest pain/pressure, palpitations.? No shortness of breath. In the ED patient was afebrile the slightly hypotensive at 94/47, satting at 94% on RA. Labs were significant for mild leukocytosis of 11.6, platelets of 115, chronically elevated BUN of 40, creatinine 1.3, chronically elevated bilirubin of 1.9.? Electrolytes normal. CXR from today showed mild bibasilar subsegmental atelectasis but no evidence of pulmonary edema or focal consolidation.? X-ray of the left and the showed degenerative changes with no convincing evidence for an acute fracture or dislocation.? X-ray of left hip showed femoral neck fracture. EKG demonstrated normal sinus rhythm with nonspecific T-wave inversions in III and V1. Pt was treated with morphine. Pt will be admitted to the hospital for surgical repair of left hip fracture. 77-year-old female with a PMH significant for?paroxysmal AFib on Xarelto, HFpEF, essential HTN, moderate persistent asthma, and pulmonary hypertension who presents to the ED with?continued pain in her left shoulder/hand and left groin/hip after a slip and fall at work two days prior.? Pt was admitted to the hospital for surgical repair of left hip fracture. Orthopedics was consulted and she underwent L hemiarthroplasty on 12/19/22. Xarelto was resumed post-operatively. As regards prior humerus fracture, this showed stability of her humerus fracture without re-dislocation. Cardiology was consulted preoperatively given her history of [id number] AF. She was loaded with amiodarone orally and the mergers and acquisitions attorney recommended continuing amiodarone for 1 month postoperatively to suppress arrhythmias. She had mild JUAN M that responded to holding furosemide and giving normal saline; BMP should be rechecked in 1 week. postoperative anemia due to blood loss from hip fx was transfused 1u pRBCs and H+H increased appropriately. She was discharged to short-term rehabilitation. Time Spent with Patient Time attestation: Total time managing care of this patient today __45__ minutes. Discharge coordination time: Greater than 30 minutes Quality: Safe Use of Opioids Does Pt have an Active Cancer Diagnosis on the Problem List?: No Quality: Stroke Does the patient have a stroke diagnosis?: No Physical Exam Vital Signs: Vital Signs: Last Vital Signs Temp 97.8 F 12/23/22 12:00 Pulse 68 12/23/22 12:00 Resp 20 12/23/22 12:00 BP 101/50 L 12/23/22 12:00 Pulse Ox 96 12/23/22 12:00 O2 Del Method Room Air 12/23/22 12:00 O2 Flow Rate 3.0 12/21/22 08:02 BMI result Body Mass Index 31.1 Gen: in no acute distress HEENT: sclera anicteric, moist mucus membranes Neck: supple Lungs: clear to auscultation bilaterally Heart: regular rate and rhythm, no murmurs Abd: soft, non-tender, non-distended Ext: LUE in sling, L hip with dry bandage, distally N/V intact Skin: warm/well-perfused Neuro: alert and oriented x3, no focal findings Psych: appropriate affect DS: Data Data Completed and Pending Completed studies during hospitalization [Text1]: Laboratory Results WBC 12.2 X10*3/uL (4.8-10.8) H 12/23/22 05:25 RBC 2.49 X10*6/uL (4.20-5.50) L 12/23/22 05:25 Hgb 8.1 g/dl (12.0-16.0) L 12/23/22 05:25 Hct 25.2 % (37.0-47.0) L 12/23/22 05:25 MCV 101.2 fL (80.0-98.0) H 12/23/22 05:25 MCH 32.5 pg (27.0-33.0) 12/23/22 05:25 MCHC 32.1 g/dl (31.0-35.0) 12/23/22 05:25 RDW 12.7 % (11.0-16.0) 12/23/22 05:25 Plt Count 189 X10*3/uL (160-400) 12/23/22 05:25 MPV 9.5 fL (9.4-12.3) 12/23/22 05:25 Immature Gran % (Auto) 1.1 % (0.0-0.4) H 12/23/22 05:25 Neut % (Auto) 74.7 % (45-73) H 12/23/22 05:25 Lymph % (Auto) 7.6 % (20-40) L 12/23/22 05:25 [place] % (Auto) 12.6 % (2-11) H 12/23/22 05:25 Eos % (Auto) 3.5 % (0-4) 12/23/22 05:25 Baso % (Auto) 0.5 % (0-2) 12/23/22 05:25 Lymph # (Auto) 0.9 X10*3/uL (1.2-4.9) L 12/23/22 05:25 [place] # (Auto) 1.5 X10*3/uL (0.1-1.2) H 12/23/22 05:25 Eos # (Auto) 0.4 X10*3/uL (0.0-0.4) 12/23/22 05:25 Baso # (Auto) 0.1 X10*3/uL (0.0-0.2) 12/23/22 05:25 Abs Immat Gran (auto) 0.13 X10*3/uL (0.00-0.03) H 12/23/22 05:25 Absolute Neuts (auto) 9.1 x10*3/uL (2.0-8.3) H 12/23/22 05:25 Absolute Nucleated RBC 0.020 X10*3/uL (0.0-0.012) H 12/23/22 05:25 Nucleated RBC % (auto) 0.2 /100WBC (0.0-0.2) 12/23/22 05:25 Smear Tech's Comments VERIFIED 12/23/22 05:25 PT 15.8 SEC (10.0-13.1) H 12/18/22 11:48 INR 1.4 (0.9-1.1) H 12/18/22 11:48 Sodium 140 mmol/L (135-145) 12/23/22 14:22 Potassium 4.6 mmol/L (3.3-5.1) 12/23/22 14:22 Chloride 110 mmol/L (96-108) H 12/23/22 14:22 Carbon Dioxide 20 mmol/L (22-29) L 12/23/22 14:22 Anion Gap 15 (12-20) 12/23/22 14:22 BUN 44 mg/dL (9-16) H 12/23/22 14:22 Creatinine 1.21 mg/dL (0.5-1.4) 12/23/22 14:22 Estim Creat Clear Calc 41.2 12/23/22 14:22 Estimated GFR 43 12/23/22 14:22 Random Glucose 126 mg/dL (60-115) H 12/23/22 14:22 Fasting Glucose 123 mg/dL (60-99) H 12/23/22 05:25 Calcium 7.7 mg/dL (8.4-10.2) L 12/23/22 05:25 Magnesium 2.6 mg/dL (1.6-2.6) 12/21/22 05:12 Total Bilirubin 1.9 mg/dL (0.0-1.0) H 12/18/22 11:48 Direct Bilirubin 0.5 mg/dL (0.0-0.5) 12/18/22 11:48 AST 23 U/L (5-31) 12/18/22 11:48 ALT 15 U/L (0-31) 12/18/22 11:48 Alkaline Phosphatase 57 U/L (39-117) 12/18/22 11:48 Total Protein 6.5 g/dL (6.5-8.0) 12/18/22 11:48 Albumin 3.7 g/dL (3.5-5.0) 12/18/22 11:48 COVID-19 (KIANA) Negative (Negative) 12/23/22 14:00 COVID-19 Clin Com See Note 12/23/22 14:00 Blood Type O Positive 12/18/22 22:44 Antibody Screen NEGATIVE 12/18/22 22:44 Impressions Chest X-Ray 12/18/22 10:40 IMPRESSION: 1. Mild bibasilar subsegmental atelectasis. 2. No evidence of pulmonary edema. 3. No focal consolidation. Hand X-Ray 12/18/22 10:40 IMPRESSION: Femoral neck fracture left hip. Hip/Pelvis X-Ray 12/18/22 10:40 IMPRESSION: Femoral neck fracture left hip. Pelvis X-Ray 12/19/22 15:10 IMPRESSION: New total left hip arthroplasty with prosthetic components in satisfactory alignment. No change in the right hip prosthesis. Shoulder X-Ray 12/20/22 10:33 IMPRESSION: No significant change since the most recent prior post reduction radiograph of the left shoulder done on 12/15/2022 at 4:04 PM. Pending studies at discharge: Pending at discharge 12/19/22 14:22 Surgical [PTH] Routine Discharge Plan Discharge Anticipated Discharge Date/Time: 12/25/22 10:58 Patient Disposition: Xfer SNF Discharge Diagnosis: left hip fracture left humerus fracture paroxysmal atrial fibrillation acute kidney injury Referrals: [facility] [Outside] - 1 Week Yair Huff MD [Primary Care Provider] - 1 Week Carey Sanchez PA-C [Physician Hosted Services Analyst] - 1 Week (12/29/22 3:15 [facility] Carey Sanchez PA-C) Franco Brennan MD [Physician] - 2 Weeks Discharge Medications: New amiodarone 200 mg Tablet See Rx Instructions .ROUTE .COMPLEX Qty: 60 0RF Rx Instructions: Take 400mg (2 tabs) twice daily for 10 days, then 200mg (1 tab) daily acetaminophen 325 mg Tablet 650 mg PO Q8H Qty: 60 0RF oxycodone [OxyContin] 10 mg Tablet,Oral Only,Ext.Rel.12 Hr 10 mg PO BID Qty: 28 0RF Rx Instructions: Partial Fill upon patient request. oxycodone 5 mg Tablet 5 mg PO Q4H PRN (Reason: Pain, Moderate(Pain Scale 4-6)) Qty: 18 0RF Rx Instructions: Partial Fill upon patient request. Continued atorvastatin 40 mg tablet 40 mg PO DAILY 90 Days Qty: 90 3RF Jardiance 10 mg tablet 10 mg PO DAILY Qty: 30 5RF carvedilol [Coreg] 12.5 mg tablet 12.5 mg PO BID 90 Days Qty: 180 0RF Rx Instructions: must administer with a meal/food diltiazem HCl [Cardizem CD] 120 mg capsule,extended release 24hr 120 mg PO DAILY 90 Days Qty: 90 1RF Protocol: Hold for SBP/HR < HOLD for SBP < : 90 HOLD for HR < : 60 ipratropium-albuterol 0.5 mg-3 mg(2.5 mg base)/3 mL solution for nebulization 3 ml inhalation Q4-6H PRN (Reason: for wheezing) Qty: 180 0RF coenzyme Q10 100 mg Tablet 100 mg PO DAILY multivitamin Tablet 1 tab PO DAILY magnesium 250 mg Tablet 250 mg PO BEDTIME vitamin E (dl, acetate) 180 mg (400 unit) Capsule 180 mg PO DAILY ascorbic acid (vitamin C) 500 mg Tablet 500 mg PO DAILY omeprazole 40 mg Capsule,Delayed Release(Dr/Ec) 40 mg PO BEDTIME furosemide 40 mg Tablet 40 mg PO DAILY Xarelto 20 mg tablet 20 mg PO DAILY@1700 spironolactone 25 mg tablet 25 mg PO QAM cholecalciferol (vitamin D3) 50 mcg (2,000 unit) Capsule 50 mcg PO DAILY montelukast 10 mg tablet 10 mg PO BEDTIME gabapentin 300 mg capsule 600 mg PO BEDTIME losartan 100 mg tablet 100 mg PO DAILY fexofenadine [Shea Allergy] 180 mg tablet 180 mg PO DAILY turmeric 400 mg capsule 100 mg PO DAILY@1200 Discontinued meloxicam 15 mg tablet 15 mg PO DAILY Discharge Orders: Discharge Order (Routine); Ordered 12/25/22 Ordered By: Mary Stack Diet: Advance to usual diet Activity on Discharge: As tolerated Stand Alone Forms: Patient Portal Discharge page Other Ambulatory Orders: Basic Metabolic Panel (Routine) Timeframe: 1 Week Facility: [facility] - Location: Laboratory Ordered By: Tara Mtaa Care Plan Goals: recovery from hip and humerus fractures prevention of atrial fibrillation Health Concerns: left hip fracture left humerus fracture paroxysmal atrial fibrillation acute kidney injury Plan of Treatment: transfer to short-term rehabilitation resume Xarelto amiodarone 400 mg twice daily for 10 days, then 200 mg once daily for 20 days repeat BMP in one week follow up with Orthopedics in 2 weeks follow up with Cardiology in 2 weeks * Physical Therapy for Total hip arthroplasty: wbat, posterior precautions, gait training, ROM, strength * Limit stair climbing * No showering, no tub bath-keep dressing clean, dry and intact * No driving x6 weeks Assessment: See Discharge Summary. Discharge Date/Time: 12/25/22 16:02
[2022-12-23 15:28] LABS: Calcium 7.9 mg/dL (8.4-10.2)
[2022-12-23 16:11] VITALS: BP 117/55; PULSE 80; RESP 18; TEMP 36.1; O2SAT 95
[2022-12-23] MEDS: Rivaroxaban 20 MG TABLET PO (16:12)
[2022-12-23 20:00] VITALS: BP 121/56; PULSE 75; RESP 16; TEMP 36.2; O2SAT 92
[2022-12-23] MEDS: Gabapentin 300 MG CAPSULE 600 MG PO (20:53)
[2022-12-23] MEDS: Omeprazole 40 MG CAPSULE.DR PO (20:53)
[2022-12-23] MEDS: Magnesium Oxide 400 MG TABLET 200 MG PO (20:53)
[2022-12-23] MEDS: Montelukast Sodium 10 MG TABLET PO (20:53)
[2022-12-24] VITALS (8 sets, daily range): BP systolic 109–152; BP diastolic 56–68; PULSE 68–76; RESP 16–18; TEMP 36.2–37.1; O2SAT 90–96
[2022-12-24 06:45] LABS: MANUAL DIFF FLAG NO
[2022-12-24 06:50] LABS: Basophils Absolute Auto 0.1 X10*3/uL (0.0-0.2); Basophils Percent Auto 0.4 % (0-2); Eosinophils Absolute Auto 0.4 X10*3/uL (0.0-0.4); Eosinophils Percent Auto 3.2 % (0-4); Hematocrit 23.3 % (37.0-47.0); Hemoglobin 7.5 g/dl (12.0-16.0); Imm Gran Abs Auto 0.19 X10*3/uL (0.00-0.03); Imm Gran Pct Auto 1.5 % (0.0-0.4); Lymphocytes Absolute Auto 1.1 X10*3/uL (1.2-4.9); Lymphocytes Percent Auto 8.7 % (20-40); Mean Corpuscular HGB Conc 32.2 g/dl (31.0-35.0); Mean Corpuscular Hemoglobin 32.5 pg (27.0-33.0); Mean Corpuscular Volume 100.9 fL (80.0-98.0); Mean Platelet Volume 9.5 fL (9.4-12.3); Monocytes Absolute Auto 1.4 X10*3/uL (0.1-1.2); Monocytes Percent Auto 10.9 % (2-11); Neutrophils Absolute Auto 9.3 x10*3/uL (2.0-8.3); Neutrophils Percent Auto 75.3 % (45-73); Platelet Count 212 X10*3/uL (160-400); Red Blood Count 2.31 X10*6/uL (4.20-5.50); Red Cell Distribution Width 12.7 % (11.0-16.0); White Blood Count 12.4 X10*3/uL (4.8-10.8)
[2022-12-24 07:05] LABS: Anion Gap 10 (12-20); Blood Urea Nitrogen 44 mg/dL (9-16); Calcium 7.7 mg/dL (8.4-10.2); Carbon Dioxide 24 mmol/L (22-29); Chloride 108 mmol/L (96-108); Creatinine Clr Calc Pharmacy 47.9; Estimated Glomerular Filt Rate 51; Glucose Fasting 109 mg/dL (60-99); Glucose Random 109 mg/dL (60-115); Potassium 4.2 mmol/L (3.3-5.1); Sodium 138 mmol/L (135-145)
--- NOTE | 2022-12-24 07:37 | PM.PNORT ---
Subjective Subjective Date of Service: 12/24/22 Principal diagnosis: left femoral neck fracture Interval history: No overnight events SNF placement pending Physical Exam Vital Signs: Vital Signs: Last Vital Signs Temp 98.8 F 12/24/22 07:30 Pulse 71 12/24/22 07:30 Resp 18 12/24/22 07:30 BP 152/68 H 12/24/22 07:30 Pulse Ox 90 L 12/24/22 07:30 O2 Del Method Room Air 12/24/22 07:30 O2 Flow Rate 3.0 12/21/22 08:02 BMI result Body Mass Index 31.1 Extrem: Other: Dressing with mild saturation Firing ehl/ta/gc SILT with mild numbness to light touch plantar left foot Procedures Date of Service Date of Service: 12/24/22 Progress Note: A&P Assessment and plan (1) S/P hip hemiarthroplasty: Status: Acute Plan Mild plantar numbness left foot that is improving WBAT with PT PO pain control Dispo planning Time Spent With Patient Time: Total time managing care of this patient today ____ minutes. Quality Stroke Does the patient have a stroke diagnosis?: No VTE Prior VTE?: No VTE Risk Level:: Medical - moderate - high VTE Device Contraindication: N/A - Device Ordered VTE Drug Contraindication: Treatment Not Indicated
[2022-12-24] MEDS: Multivitamin TABLET 1 TAB PO (07:43)
[2022-12-24] MEDS: 0.9 % Sodium Chloride Flush 3 ML SYRINGE IVFLUSH ×2 (07:43→19:40)
[2022-12-24] MEDS: Docusate Sodium 100 MG CAPSULE PO ×2 (07:43→22:06)
[2022-12-24] MEDS: Atorvastatin Calcium 40 MG TABLET PO (07:43)
[2022-12-24] MEDS: Celecoxib 200 MG CAPSULE PO ×2 (07:43→22:05)
[2022-12-24] MEDS: NaPROXEN 500 MG TABLET PO ×2 (07:44→22:06)
[2022-12-24] MEDS: carvediloL 12.5 MG TABLET PO ×2 (07:45→22:07)
[2022-12-24] MEDS: Ascorbic Acid 500 MG TABLET PO (07:45)
[2022-12-24] MEDS: dilTIAZem HCL CD 120 MG CAP.ER.DEG PO (07:45)
[2022-12-24] MEDS: Loratadine 10 MG TABLET PO (07:46)
[2022-12-24] MEDS: Spironolactone 25 MG TABLET PO (07:46)
[2022-12-24] MEDS: Amiodarone HCL 200 MG TABLET 400 MG PO ×2 (07:46→22:06)
[2022-12-24] MEDS: Empagliflozin 10 MG TABLET PO (07:47)
[2022-12-24] MEDS: Cholecalciferol (Vitamin D3) 25 MCG TABLET 50 MCG PO (07:47)
--- NOTE | 2022-12-24 11:32 | HO.PM.IMPN ---
Subjective Subjective Date of Service: 12/24/22 Interval History: low in energy no Afib awaiting placement Hb low at 7.5 Review of Systems Review of Systems: Yes all other systems are reviewed and are negative Physical Exam Vital Signs: Vital Signs: Last Vital Signs Temp 98.8 F 12/24/22 07:30 Pulse 71 12/24/22 10:29 Resp 18 12/24/22 07:30 BP 152/68 H 12/24/22 10:29 Pulse Ox 90 L 12/24/22 10:29 O2 Del Method Room Air 12/24/22 07:30 O2 Flow Rate 3.0 12/21/22 08:02 BMI result Body Mass Index 31.1 Gen: in no acute distress HEENT: sclera anicteric, moist mucus membranes Neck: supple Lungs: clear to auscultation bilaterally Heart: regular rate and rhythm, no murmurs Abd: soft, non-tender, non-distended Ext: LUE in sling, L hip with dry bandage, distally N/V intact Skin: warm/well-perfused Neuro: alert and oriented x3, no focal findings Psych: appropriate affect Objective Data Active Medications Acetaminophen (Acetaminophen 325 Mg Tablet) 650 mg PO Q8H [facility] Last Admin: 12/24/22 05:27 Dose: Not Given Documented By: TANJA Non-Admin Reason: Patient Refused Albuterol/Ipratropium (Albuterol/Iprat 2.5/0.5mg 3 Ml Ampul.Neb) 3 ml INHALE Q4H PRN PRN Reason: for wheezing Amiodarone HCl (Amiodarone Hcl 200 Mg Tablet) 400 mg PO BID [facility] Last Admin: 12/24/22 07:46 Dose: 400 mg Documented By: SABAS Ascorbic Acid (Ascorbic Acid 500 Mg Tablet) 500 mg PO DAILY [facility] Last Admin: 12/24/22 07:45 Dose: 500 mg Documented By: SABAS Atorvastatin Calcium (Atorvastatin Calcium 40 Mg Tablet) 40 mg PO DAILY [facility] Last Admin: 12/24/22 07:43 Dose: 40 mg Documented By: SABAS Carvedilol (Carvedilol 12.5 Mg Tablet) 12.5 mg PO BID [facility]; Protocol Last Admin: 12/24/22 07:45 Dose: 12.5 mg Documented By: SABAS Celecoxib (Celecoxib 200 Mg Capsule) 200 mg PO BID [facility] Last Admin: 12/24/22 07:43 Dose: 200 mg Documented By: SABAS Diltiazem HCl (Diltiazem Hcl Cd 120 Mg Cap.Er.Deg) 120 mg PO DAILY [facility]; Protocol Last Admin: 12/24/22 07:45 Dose: 120 mg Documented By: SABAS Docusate Sodium (Docusate Sodium 100 Mg Capsule) 100 mg PO BID [facility] Last Admin: 12/24/22 07:43 Dose: 100 mg Documented By: SABAS Empagliflozin (Empagliflozin 10 Mg Tablet) 10 mg PO DAILY [facility] Last Admin: 12/24/22 07:47 Dose: 10 mg Documented By: SABAS Gabapentin (Gabapentin 300 Mg Capsule) 600 mg PO BEDTIME [facility] Last Admin: 12/23/22 20:53 Dose: 600 mg Documented By: SASHA Hydromorphone HCl (Hydromorphone Hcl 0.5 Mg/0.5 Ml Syringe) 0.25 mg IVPUSH Q4H PRN; Protocol PRN Reason: Pain, Severe (Pain Scale 7-10) Loratadine (Loratadine 10 Mg Tablet) 10 mg PO DAILY [facility] Last Admin: 12/24/22 07:46 Dose: 10 mg Documented By: SABAS Magnesium Oxide (Magnesium Oxide 400 Mg Tablet) 200 mg PO BEDTIME [facility] Last Admin: 12/23/22 20:53 Dose: 200 mg Documented By: SASHA Montelukast Sodium (Montelukast Sodium 10 Mg Tablet) 10 mg PO BEDTIME [facility] Last Admin: 12/23/22 20:53 Dose: 10 mg Documented By: SASHA Multivitamins/Vitamin C (Multivitamin Tablet) 1 tab PO DAILY [facility] Last Admin: 12/24/22 07:43 Dose: 1 tab Documented By: SABAS Naproxen (Naproxen 500 Mg Tablet) 500 mg PO BID [facility] Last Admin: 12/24/22 07:44 Dose: 500 mg Documented By: SABAS Omeprazole (Omeprazole 40 Mg Capsule.) 40 mg PO BEDTIME [facility] Last Admin: 12/23/22 20:53 Dose: 40 mg Documented By: SASHA Ondansetron HCl (Ondansetron Hcl 4 Mg/2 Ml Vial) 4 mg IVPUSH Q8H PRN PRN Reason: Nausea and Vomiting Last Admin: 12/18/22 14:23 Dose: 4 mg Documented By: FOUZIA Oxycodone HCl (Oxycodone Hcl Immed Release 5 Mg Tablet) 5 mg PO Q4H PRN PRN Reason: Pain, Moderate(Pain Scale 4-6) Oxycodone HCl (Oxycodone Hcl Er 10 Mg Tab.Er.12h) 10 mg PO BID [facility] Last Admin: 12/24/22 07:52 Dose: Not Given Documented By: SABAS Non-Admin Reason: Patient Refused Rivaroxaban (Rivaroxaban 20 Mg Tablet) 20 mg PO DAILY@1700 [facility] Last Admin: 12/23/22 16:12 Dose: 20 mg Documented By: ALESSIA Sodium Chloride (0.9 % Sodium Chloride Flush 3 Ml Syringe) 3 ml IVFLUSH [facility] Last Admin: 12/24/22 07:43 Dose: 3 ml Documented By: SABAS Sodium Chloride (0.9 % Sodium Chloride Flush 3 Ml Syringe) 3 ml IVFLUSH [facility] Last Admin: 12/24/22 07:13 Dose: Not Given Documented By: SABAS Non-Admin Reason: Duplicate Order Spironolactone (Spironolactone 25 Mg Tablet) 25 mg PO DAILY [facility]; Protocol Last Admin: 12/24/22 07:46 Dose: 25 mg Documented By: SABAS Vitamin D (Cholecalciferol (Vitamin D3) 25 Mcg Tablet) 50 mcg PO DAILY [facility] Last Admin: 12/24/22 07:47 Dose: 50 mcg Documented By: SABAS Labs 12/24/22 05:51 12/24/22 05:51 Labs: Laboratory Results - last 24 hr 12/23/22 12/23/22 12/24/22 14:00 14:22 05:51 MCV 100.9 H MCH 32.5 MCHC 32.2 RDW 12.7 Plt Count 212 MPV 9.5 Immature Gran % (Auto) 1.5 H Neut % (Auto) 75.3 H Lymph % (Auto) 8.7 L [place] % (Auto) 10.9 Eos % (Auto) 3.2 Baso % (Auto) 0.4 Lymph # (Auto) 1.1 L [place] # (Auto) 1.4 H Eos # (Auto) 0.4 Baso # (Auto) 0.1 Abs Immat Gran (auto) 0.19 H Absolute Neuts (auto) 9.3 H Absolute Nucleated RBC 0.000 Nucleated RBC % (auto) 0.0 Anion Gap 15 Estim Creat Clear Calc 41.2 Estimated GFR 43 Random Glucose 126 H Fasting Glucose Calcium 7.9 L COVID-19 (KIANA) Negative COVID-19 Clin Com See Note Blood Type Antibody Screen Crossmatch 12/24/22 12/24/22 05:51 10:32 MCV MCH MCHC RDW Plt Count MPV Immature Gran % (Auto) Neut % (Auto) Lymph % (Auto) [place] % (Auto) Eos % (Auto) Baso % (Auto) Lymph # (Auto) [place] # (Auto) Eos # (Auto) Baso # (Auto) Abs Immat Gran (auto) Absolute Neuts (auto) Absolute Nucleated RBC Nucleated RBC % (auto) Anion Gap 10 L Estim Creat Clear Calc 47.9 Estimated GFR 51 Random Glucose 109 Fasting Glucose 109 H Calcium 7.7 L COVID-19 (KIANA) COVID-19 Clin Com Blood Type O Positive Antibody Screen NEGATIVE Crossmatch See Detail Assessment and Plan (1) Left displaced femoral neck fracture: Status: Acute (2) Closed fracture dislocation of left shoulder: Status: Acute Plan d#6 77-year-old female with a PMH significant for?paroxysmal AFib on Xarelto, HFpEF, essential HTN, moderate persistent asthma, and pulmonary hypertension who presents to the ED with?continued pain in her left shoulder/hand and left groin/hip after a slip and fall at work two days prior. Pt was admitted to the hospital for surgical repair of left hip fracture. # L hip fx - POD#5 L hemiarthroplasty - resumed Xarelto - PT: STR recommended - Ortho f/u # L humerus fx - sling, stable on X-ray - Ortho f/u # postoperative anemia due to blood loss from hip fx - T+S, transfuse 1u pRBCs, recheck H+H afterwards # JUAN M - resolved after holding furosemide and giving 1L NS; recheck BMP in 1 wk # paroxysmal AF - recurrent cardioversions + ablations - per home performance consultant, amiodarone 400 mg bid to 10g then 200 mg daily to suppress arrhythmias, will need Cardiology f/u - continue carvedilol, diltiazem - had brief bursts of atrial tachycardia that terminated # chronic HFpEF - not in acute exac - spironolactone - hold furosemide as above # COPD # mod pers asthma - not in acute exac - home inhalers # HTN - carvedilol, diltiazem # HLD - statin # GERD - PPI # VTE ppx: rivaroxaban # dispo: STR In my clinical judgment, the patient requires continued inpatient hospitalization for the following reasons: STR placement, transfusion Time Spent With Patient Time: Total time managing care of this patient today ___40_ minutes. Quality Stroke Does the patient have a stroke diagnosis?: No VTE Prior VTE?: No VTE Risk Level:: Medical - moderate - high VTE Device Contraindication: N/A - Device Ordered VTE Drug Contraindication: Treatment Not Indicated
[2022-12-24] MEDS: Acetaminophen 325 MG TABLET 650 MG PO ×2 (14:21→22:07)
--- NOTE | 2022-12-24 14:42 | PM.PNCARD ---
Subjective Subjective Date of Service: 12/24/22 Principal diagnosis: left femoral neck fracture Interval history: Seen and examined at bedside. Saying she is tired. She appears SOB. waiting to receive unit of PRBCs for anemia. Physical Exam Vital Signs: Last Vital Signs Temp 97.1 F 12/24/22 14:14 Pulse 71 12/24/22 14:14 Resp 18 12/24/22 14:14 BP 117/56 L 12/24/22 14:14 Pulse Ox 90 L 12/24/22 10:29 O2 Del Method Room Air 12/24/22 07:30 O2 Flow Rate 3.0 12/21/22 08:02 BMI result Body Mass Index 31.1 GENERAL APPEARANCE: in no acute distress. NECK: no carotid bruit, no jugular venous distention. SKIN: no suspicious lesions, warm and dry. HEART: no murmurs, regular rate and rhythm. LUNGS: clear to auscultation bilaterally. ABDOMEN: soft, nontender. EXTREMITIES: no edema. Left arm in sling. PERIPHERAL PULSES: equal. NEUROLOGIC: No gross deficits, AAO X 3 Objective Labs and Meds 12/24/22 05:51 12/24/22 05:51 Lab results: Laboratory Results - last 24 hr 12/23/22 12/23/22 12/24/22 14:00 14:22 05:51 WBC 12.4 H RBC 2.31 L Hgb 7.5 L Hct 23.3 L MCV 100.9 H MCH 32.5 MCHC 32.2 RDW 12.7 Plt Count 212 MPV 9.5 Immature Gran % (Auto) 1.5 H Neut % (Auto) 75.3 H Lymph % (Auto) 8.7 L [place] % (Auto) 10.9 Eos % (Auto) 3.2 Baso % (Auto) 0.4 Lymph # (Auto) 1.1 L [place] # (Auto) 1.4 H Eos # (Auto) 0.4 Baso # (Auto) 0.1 Abs Immat Gran (auto) 0.19 H Absolute Neuts (auto) 9.3 H Absolute Nucleated RBC 0.000 Nucleated RBC % (auto) 0.0 Sodium 140 Potassium 4.6 Chloride 110 H Carbon Dioxide 20 L Anion Gap 15 BUN 44 H Creatinine 1.21 Estim Creat Clear Calc 41.2 Estimated GFR 43 Random Glucose 126 H Fasting Glucose Calcium 7.9 L COVID-19 (KIANA) Negative COVID-19 Clin Com See Note Blood Type Antibody Screen Crossmatch 12/24/22 12/24/22 05:51 10:32 WBC RBC Hgb Hct MCV MCH MCHC RDW Plt Count MPV Immature Gran % (Auto) Neut % (Auto) Lymph % (Auto) [place] % (Auto) Eos % (Auto) Baso % (Auto) Lymph # (Auto) [place] # (Auto) Eos # (Auto) Baso # (Auto) Abs Immat Gran (auto) Absolute Neuts (auto) Absolute Nucleated RBC Nucleated RBC % (auto) Sodium 138 Potassium 4.2 Chloride 108 Carbon Dioxide 24 Anion Gap 10 L BUN 44 H Creatinine 1.04 Estim Creat Clear Calc 47.9 Estimated GFR 51 Random Glucose 109 Fasting Glucose 109 H Calcium 7.7 L COVID-19 (KIANA) COVID-19 Clin Com Blood Type O Positive Antibody Screen NEGATIVE Crossmatch See Detail Progress Note: A&P Assessment and plan (1) Paroxysmal atrial fibrillation: Status: Acute (2) Anemia: Status: Acute Plan 77 female with PAF. On amiodarone and in sinus rhythm. Given anemia, fatigue and SOB, would benefit from blood transfusion. The patient is agreeable. Will follow her PRN. Time Spent With Patient Time: Total time managing care of this patient today ____ minutes. Progress Note: Quality Stroke Does the patient have a stroke diagnosis?: No Procedures Date of Service Date of Service: 12/24/22
[2022-12-24] MEDS: Rivaroxaban 20 MG TABLET PO (16:23)
[2022-12-24 17:33] LABS: Hematocrit 27.4 % (37.0-47.0); Hemoglobin 9.3 g/dl (12.0-16.0)
[2022-12-24] MEDS: ondansetron HCL 4 MG/2 ML VIAL IVPUSH (17:38)
[2022-12-24] MEDS: oxyCODONE HCl Immed Release 5 MG TABLET PO (19:30)
[2022-12-24] MEDS: Gabapentin 300 MG CAPSULE 600 MG PO (22:05)
[2022-12-24] MEDS: Omeprazole 40 MG CAPSULE.DR PO (22:05)
[2022-12-24] MEDS: Montelukast Sodium 10 MG TABLET PO (22:05)
[2022-12-24] MEDS: Magnesium Oxide 400 MG TABLET 200 MG PO (22:08)
[2022-12-24] MEDS: oxyCODONE HCl ER 10 MG TAB.ER.12H PO (22:08)
[2022-12-25 03:42] VITALS: BP 118/56; PULSE 80; RESP 16; TEMP 36.6; O2SAT 91
[2022-12-25] MEDS: Acetaminophen 325 MG TABLET 650 MG PO ×2 (05:17→13:32)
[2022-12-25] MEDS: oxyCODONE HCl Immed Release 5 MG TABLET PO (05:17)
[2022-12-25] MEDS: Cholecalciferol (Vitamin D3) 25 MCG TABLET 50 MCG PO (08:38)
[2022-12-25] MEDS: Empagliflozin 10 MG TABLET PO (08:38)
[2022-12-25] MEDS: Celecoxib 200 MG CAPSULE PO (08:39)
[2022-12-25] MEDS: dilTIAZem HCL CD 120 MG CAP.ER.DEG PO (08:39)
[2022-12-25] MEDS: Docusate Sodium 100 MG CAPSULE PO (08:39)
[2022-12-25] MEDS: NaPROXEN 500 MG TABLET PO (08:39)
[2022-12-25] MEDS: Atorvastatin Calcium 40 MG TABLET PO (08:39)
[2022-12-25] MEDS: carvediloL 12.5 MG TABLET PO (08:39)
[2022-12-25] MEDS: Multivitamin TABLET 1 TAB PO (08:39)
[2022-12-25] MEDS: Loratadine 10 MG TABLET PO (08:40)
[2022-12-25] MEDS: oxyCODONE HCl ER 10 MG TAB.ER.12H PO (08:40)
[2022-12-25] MEDS: Ascorbic Acid 500 MG TABLET PO (08:40)
[2022-12-25] MEDS: Spironolactone 25 MG TABLET PO (08:41)
[2022-12-25] MEDS: 0.9 % Sodium Chloride Flush 3 ML SYRINGE IVFLUSH (08:41)
[2022-12-25] MEDS: Amiodarone HCL 200 MG TABLET 400 MG PO (08:41)
[2022-12-25 09:15] VITALS: BP 118/56; PULSE 80; O2SAT 91
--- NOTE | 2022-12-25 10:59 | PM.DS ---
DS: Providers Provider Date of Service: 12/25/22 Date of admission: 12/18/22 13:55 Date of discharge: 12/25/22 Primary care physician: Yair Huff MD Consults: 12/18/22 14:05 Consult to Orthopedics Routine Consulting Provider: [facility] Reason for consultation: Left hip fracture Has provider been notified: Yes 12/19/22 08:07 Consult to Cardiology Routine Consulting Provider: [facility] Reason for consultation: HFpEF, AF, preop for L hip fx today Attending physician on discharge: David Birch Discharging clinician: Mary Stack DS: Diagnosis Discharge Diagnosis (1) Paroxysmal atrial fibrillation: Status: Acute (2) Anemia: Status: Acute (3) JUAN M (acute kidney injury): Status: Acute (4) S/P hip hemiarthroplasty: Status: Acute DS: Summary Hospital Course Hospital Course: from admission H+P by hospitalist MYKEL Vasquez, 12/18/22: Pt is a 77-year-old female with a PMH significant for?paroxysmal AFib on Xarelto, HFpEF, essential HTN, moderate persistent asthma, and pulmonary hypertension who presents to the ED with?continued pain in her left shoulder/hand and left groin/hip after a slip and fall at work two days prior. 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 like a piece of squash. Pt fell on her left side and was seen and evaluated in our ED 5 03/29/2023. Patient was found to have a left shoulder anterior dislocation with humeral greater tuberosity fracture which was reduced in the ED. patient had multiple imaging done including x-rays of shoulder CT of head/C-spine, and CT of abdomen/pelvis. CT of abdomen and pelvis showed moderate degenerate changes of left hip with no acute fracture or dislocation.? Patient was discharged home.? Patient states that she has not been able to bear weight on her left leg since her fall and been unable to ambulate. Has had intense pain in both her left shoulder, hand, and hip.? Repeat imaging today with x-ray of left hip showed acute left hip fracture.? Patient denies any additional history of fall since discharge.? Patient has essentially been bed-bound since then.? Patient denies numbness or tingling in her extremities.? No increasing edema of her lower legs.? Denies any change to her bowel or bladder habits.? Patient denies fever, chills, nausea, vomiting.? No abdominal pain.? Denies chest pain/pressure, palpitations.? No shortness of breath. In the ED patient was afebrile the slightly hypotensive at 94/47, satting at 94% on RA. Labs were significant for mild leukocytosis of 11.6, platelets of 115, chronically elevated BUN of 40, creatinine 1.3, chronically elevated bilirubin of 1.9.? Electrolytes normal. CXR from today showed mild bibasilar subsegmental atelectasis but no evidence of pulmonary edema or focal consolidation.? X-ray of the left and the showed degenerative changes with no convincing evidence for an acute fracture or dislocation.? X-ray of left hip showed femoral neck fracture. EKG demonstrated normal sinus rhythm with nonspecific T-wave inversions in III and V1. Pt was treated with morphine. Pt will be admitted to the hospital for surgical repair of left hip fracture. 77-year-old female with a PMH significant for?paroxysmal AFib on Xarelto, HFpEF, essential HTN, moderate persistent asthma, and pulmonary hypertension who presents to the ED with?continued pain in her left shoulder/hand and left groin/hip after a slip and fall at work two days prior.? Pt was admitted to the hospital for surgical repair of left hip fracture. Orthopedics was consulted and she underwent L hemiarthroplasty on 12/19/22. Xarelto was resumed post-operatively. As regards prior humerus fracture, this showed stability of her humerus fracture without re-dislocation. Cardiology was consulted preoperatively given her history of [id number] AF. She was loaded with amiodarone orally and the black oxide operator recommended continuing amiodarone for 1 month postoperatively to suppress arrhythmias. She had mild JUAN M that responded to holding furosemide and giving normal saline; BMP should be rechecked in 1 week. postoperative anemia due to blood loss from hip fx was transfused 1u pRBCs and H+H increased appropriately. She was discharged to short-term rehabilitation. Time Spent with Patient Time attestation: Total time managing care of this patient today ____ minutes. Discharge coordination time: Greater than 30 minutes Quality: Safe Use of Opioids Does Pt have an Active Cancer Diagnosis on the Problem List?: No Quality: Stroke Does the patient have a stroke diagnosis?: No Physical Exam Vital Signs: Vital Signs: Last Vital Signs Temp 97.8 F 12/25/22 03:42 Pulse 80 12/25/22 09:15 Resp 16 12/25/22 03:42 BP 118/56 L 12/25/22 09:15 Pulse Ox 91 L 12/25/22 09:15 O2 Del Method Room Air 12/25/22 03:42 O2 Flow Rate 3.0 12/21/22 08:02 BMI result Body Mass Index 31.1 Const: General: cooperative, comfortable, no acute distress, alert and awake Nutritional Appearance: overweight Orientation/consciousness: patient oriented x3 Resp: Effort & Inspection: normal respiratory effort, able to speak in complete sentences, no respiratory distress and no use of accessory muscles Cardio: Rate: regular rate GI: Inspection: No distended Palpation (GI): Soft to palpation and nontender Neuro: General: patient oriented x3, moves all extremities and CN's II-XI intact bilaterally Extrem: Other: LUE in sling General: Yes no pedal edema DS: Data Data Completed and Pending Completed studies during hospitalization [Text1]: Pending at discharge 12/19/22 14:22 Surgical [PTH] Routine Procedures [employer] of Cardiac Rhythm, Single (09/10/22) Ultrasonography of Heart with Aorta, Transesophageal (07/27/21) Labs on day of discharge: Laboratory Results - last 24 hr 12/24/22 12/24/22 10:32 17:20 Hgb 9.3 L D Hct 27.4 L Blood Type O Positive Antibody Screen NEGATIVE Crossmatch See Detail Discharge Plan Discharge Anticipated Discharge Date/Time: 12/25/22 10:58 Patient Disposition: Xfer SNF Discharge Diagnosis: left hip fracture left humerus fracture paroxysmal atrial fibrillation acute kidney injury Referrals: [facility] [Outside] - 1 Week Yair Huff MD [Primary Care Provider] - 1 Week Carey Sanchez PA-C [Physician Debate Director] - 1 Week (12/29/22 3:15 [facility] Carey Sanchez PA-C) Franco Brennan MD [Physician] - 2 Weeks Discharge Medications: New amiodarone 200 mg Tablet See Rx Instructions .ROUTE .COMPLEX Qty: 60 0RF Rx Instructions: Take 400mg (2 tabs) twice daily for 10 days, then 200mg (1 tab) daily acetaminophen 325 mg Tablet 650 mg PO Q8H Qty: 60 0RF oxycodone [OxyContin] 10 mg Tablet,Oral Only,Ext.Rel.12 Hr 10 mg PO BID Qty: 28 0RF Rx Instructions: Partial Fill upon patient request. oxycodone 5 mg Tablet 5 mg PO Q4H PRN (Reason: Pain, Moderate(Pain Scale 4-6)) Qty: 18 0RF Rx Instructions: Partial Fill upon patient request. Continued atorvastatin 40 mg tablet 40 mg PO DAILY 90 Days Qty: 90 3RF Jardiance 10 mg tablet 10 mg PO DAILY Qty: 30 5RF carvedilol [Coreg] 12.5 mg tablet 12.5 mg PO BID 90 Days Qty: 180 0RF Rx Instructions: must administer with a meal/food diltiazem HCl [Cardizem CD] 120 mg capsule,extended release 24hr 120 mg PO DAILY 90 Days Qty: 90 1RF Protocol: Hold for SBP/HR < HOLD for SBP < : 90 HOLD for HR < : 60 ipratropium-albuterol 0.5 mg-3 mg(2.5 mg base)/3 mL solution for nebulization 3 ml inhalation Q4-6H PRN (Reason: for wheezing) Qty: 180 0RF coenzyme Q10 100 mg Tablet 100 mg PO DAILY multivitamin Tablet 1 tab PO DAILY magnesium 250 mg Tablet 250 mg PO BEDTIME vitamin E (dl, acetate) 180 mg (400 unit) Capsule 180 mg PO DAILY ascorbic acid (vitamin C) 500 mg Tablet 500 mg PO DAILY omeprazole 40 mg Capsule,Delayed Release(Dr/Ec) 40 mg PO BEDTIME furosemide 40 mg Tablet 40 mg PO DAILY Xarelto 20 mg tablet 20 mg PO DAILY@1700 spironolactone 25 mg tablet 25 mg PO QAM cholecalciferol (vitamin D3) 50 mcg (2,000 unit) Capsule 50 mcg PO DAILY montelukast 10 mg tablet 10 mg PO BEDTIME gabapentin 300 mg capsule 600 mg PO BEDTIME losartan 100 mg tablet 100 mg PO DAILY fexofenadine [Shea Allergy] 180 mg tablet 180 mg PO DAILY turmeric 400 mg capsule 100 mg PO DAILY@1200 Discontinued meloxicam 15 mg tablet 15 mg PO DAILY Discharge Orders: Discharge Order (Routine); Ordered 12/25/22 Ordered By: Mary Stack Diet: Advance to usual diet Activity on Discharge: As tolerated Stand Alone Forms: Patient Portal Discharge page Other Ambulatory Orders: Basic Metabolic Panel (Routine) Timeframe: 1 Week Facility: [facility] - Location: Laboratory Ordered By: Tara Mata Care Plan Goals: recovery from hip and humerus fractures prevention of atrial fibrillation Health Concerns: left hip fracture left humerus fracture paroxysmal atrial fibrillation acute kidney injury Plan of Treatment: transfer to short-term rehabilitation resume Xarelto amiodarone 400 mg twice daily for 10 days, then 200 mg once daily for 20 days repeat BMP in one week follow up with Orthopedics in 2 weeks follow up with Cardiology in 2 weeks Physical Therapy for Total hip arthroplasty: wbat, posterior precautions, gait training, ROM, strength Limit stair climbing No showering, no tub bath-keep dressing clean, dry and intact No driving x6 weeks Assessment: See Discharge Summary.
[2022-12-25] MEDS: ondansetron HCL 4 MG/2 ML VIAL IVPUSH (12:04)
--- NOTE | 2022-12-25 14:51 | MHC.CM.PN ---
Addendum entered by Blanca Dow 12/25/22 14:53: WORKER [employer]. CLAIM # [id number] [employer] [place] [address] [facility] [address] FAX [phone] Original Note: Female 77 DX L HIP FX s/P MELODY is discharged today to [facility] via BLS. All discharge information has been sent to the facility. Transport is booked for 4pm.
== END 2022-12-25 16:02 | disposition skilled nursing facility (03) | DRG 522 ==
LOC: HO.ED 13:24 → HO.EDOVER 14:13 → HO.S3 14:25
PROVIDERS: Family Medicine; Orthopaedic Surgery; Physician Assistant; Admitting Provider Student in an Organized Health Care Education/Training Program; Emergency Provider Emergency Medicine; PCP Family Medicine; Visit Provider Physician Assistant Medical
PROC: 0SRS0JA Replacement of Left Hip Joint, Femoral Surface with Synthetic Substitute, Uncemented, Open Approach (ICD-10-PCS; CPT 27125; principal; 2022-12-19 13:00)
DX: S72.002A Fracture of unspecified part of neck of left femur, initial encounter for closed fracture (principal); S42.252A Displaced fracture of greater tuberosity of left humerus, initial encounter for closed fracture; I50.32 Chronic diastolic (congestive) heart failure; J98.11 Atelectasis; D62 Acute posthemorrhagic anemia; N17.9 Acute kidney failure, unspecified; I27.20 Pulmonary hypertension, unspecified; W01.0XXA Fall on same level from slipping, tripping and stumbling without subsequent striking against object, initial encounter; K21.9 Gastro-esophageal reflux disease without esophagitis; I48.0 Paroxysmal atrial fibrillation; E78.5 Hyperlipidemia, unspecified; I11.0 Hypertensive heart disease with heart failure; J45.40 Moderate persistent asthma, uncomplicated; J44.9 Chronic obstructive pulmonary disease, unspecified; Z88.2 Allergy status to sulfonamides; Z88.6 Allergy status to analgesic agent; Z79.01 Long term (current) use of anticoagulants; Z79.899 Other long term (current) drug therapy
CPT/HCPCS: 36415; 71046; 72170; 73030; 73130; 73502; 80048; 80076; 83735; 85014; 85018; 85025; 85027; 85610; 86850; 86900; 86901; 86923; 87635; 88305; 88311; 93005; 97110; 97116; 97162; 97166; 97530; 97535; 99285; C1758; C1776; J0131; J0690; J1100; J2270; J2405; J2795; J3010; P9016

== ENCOUNTER → 2023-01-01 14:32 | Outpatient (BNVA) | payer OTHER, MEDICARE, SELFPAY | PROVIDERS: PCP Family Medicine; Visit Provider Internal Medicine Cardiovascular Disease | DX: I48.0 Paroxysmal atrial fibrillation (principal); I50.32 Chronic diastolic (congestive) heart failure | CPT/HCPCS: 99212 ==

== ENCOUNTER 2023-01-08 12:19 | Outpatient (REF) | payer OTHER, MEDICARE, SELFPAY ==
--- NOTE | ~2023-01-08 | XR_ITS ---
Examination: Left shoulder and pelvis. CLINICAL INDICATION: Pain. COMPARISON: Left shoulder 12/15/2022 and 12/20/2022 TECHNIQUE: Left shoulder 2 views. Pelvis 2 views. FINDINGS: Left shoulder: There is normal alignment of glenohumeral joint. However there is a displaced fracture fragment along the greater tuberosity posterior to the humeral head. AC joint is unremarkable. The soft tissues are normal. AP pelvis: There are bilateral hip prosthesis with the prosthetic components in satisfactory alignment. No periprosthetic fracture or loosening seen. There are surgical glenda along the left hip from recent intervention. The pelvic bones are grossly unremarkable. The soft tissues are normal. XR/XR pelvis 1-2V IMPRESSION: 1. Displaced fracture fragment along the greater tuberosity posterior to humeral head. There is normal alignment of glenohumeral joint status post reduction comparison to 12/20/2022. 2. Bilateral hip prosthesis with prosthetic components in satisfactory alignment. No periprosthetic fracture or loosening seen. There are surgical glenda along the left hip from recent intervention.
--- NOTE | ~2023-01-08 | XR_ITS ---
Examination: Left shoulder and pelvis. CLINICAL INDICATION: Pain. COMPARISON: Left shoulder 12/15/2022 and 12/20/2022 TECHNIQUE: Left shoulder 2 views. Pelvis 2 views. FINDINGS: Left shoulder: There is normal alignment of glenohumeral joint. However there is a displaced fracture fragment along the greater tuberosity posterior to the humeral head. AC joint is unremarkable. The soft tissues are normal. AP pelvis: There are bilateral hip prosthesis with the prosthetic components in satisfactory alignment. No periprosthetic fracture or loosening seen. There are surgical glenda along the left hip from recent intervention. The pelvic bones are grossly unremarkable. The soft tissues are normal. XR/XR shoulder LT min 2V IMPRESSION: 1. Displaced fracture fragment along the greater tuberosity posterior to humeral head. There is normal alignment of glenohumeral joint status post reduction comparison to 12/20/2022. 2. Bilateral hip prosthesis with prosthetic components in satisfactory alignment. No periprosthetic fracture or loosening seen. There are surgical glenda along the left hip from recent intervention.
== END 2023-01-08 12:20 | disposition home or self-care (01) ==
LOC: HO.HOSX 12:19
PROVIDERS: Visit Provider Orthopaedic Surgery
DX: S42.92XD Fracture of left shoulder girdle, part unspecified, subsequent encounter for fracture with routine healing (principal); Z96.642 Presence of left artificial hip joint
CPT/HCPCS: 72170; 73030

== ENCOUNTER → 2023-01-15 15:10 | Outpatient (BNVA) | payer OTHER, MEDICARE, SELFPAY | PROVIDERS: PCP Family Medicine; Visit Provider Physician Assistant ==

== ENCOUNTER 2023-01-21 12:34 | Outpatient (REF) | payer OTHER, MEDICARE, SELFPAY ==
[2023-01-21 13:16] LABS: MANUAL DIFF FLAG NO
[2023-01-21 13:29] LABS: Basophils Absolute Auto 0.1 X10*3/uL (0.0-0.2); Basophils Percent Auto 0.5 % (0-2); Eosinophils Absolute Auto 0.1 X10*3/uL (0.0-0.4); Eosinophils Percent Auto 1.3 % (0-4); Hematocrit 40.4 % (37.0-47.0); Hemoglobin 13.2 g/dl (12.0-16.0); Imm Gran Abs Auto 0.04 X10*3/uL (0.00-0.03); Imm Gran Pct Auto 0.4 % (0.0-0.4); Lymphocytes Absolute Auto 1.2 X10*3/uL (1.2-4.9); Lymphocytes Percent Auto 13.2 % (20-40); Mean Corpuscular HGB Conc 32.7 g/dl (31.0-35.0); Mean Corpuscular Hemoglobin 33.3 pg (27.0-33.0); Mean Platelet Volume 9.1 fL (9.4-12.3); Monocytes Absolute Auto 0.8 X10*3/uL (0.1-1.2); Monocytes Percent Auto 8.1 % (2-11); Neutrophils Absolute Auto 7.2 x10*3/uL (2.0-8.3); Neutrophils Percent Auto 76.5 % (45-73); Platelet Count 283 X10*3/uL (160-400); Red Blood Count 3.96 X10*6/uL (4.20-5.50); Red Cell Distribution Width 14.2 % (11.0-16.0); White Blood Count 9.4 X10*3/uL (4.8-10.8)
[2023-01-21 13:54] LABS: Alanine Aminotransferase 17 U/L (0-31); Albumin Level 4.3 g/dL (3.5-5.0); Alkaline Phosphatase 91 U/L (39-117); Anion Gap 16 (12-20); Aspartate Amino Transferase 19 U/L (5-31); Bilirubin Total 1.4 mg/dL (0.0-1.0); Blood Urea Nitrogen 30 mg/dL (9-16); Calcium 10.2 mg/dL (8.4-10.2); Carbon Dioxide 23 mmol/L (22-29); Chloride 106 mmol/L (96-108); Estimated Glomerular Filt Rate 42; Glucose Random 137 mg/dL (60-115); Potassium 4.5 mmol/L (3.3-5.1); Sodium 140 mmol/L (135-145); Total Protein 7.8 g/dL (6.5-8.0)
== END 2023-01-21 12:35 | disposition home or self-care (01) ==
LOC: HO.10HDL 12:34
PROVIDERS: Visit Provider Family Medicine
DX: R53.1 Weakness (principal); I10 Essential (primary) hypertension; R53.83 Other fatigue
CPT/HCPCS: 36415; 80053; 85025

== ENCOUNTER → 2023-01-23 12:11 | Outpatient (BNVA) | payer OTHER, MEDICARE, SELFPAY | PROVIDERS: PCP Family Medicine; Visit Provider Orthopaedic Surgery | DX: S42.92XD Fracture of left shoulder girdle, part unspecified, subsequent encounter for fracture with routine healing (principal); S44.3 Injury of axillary nerve; X58.XXXD Exposure to other specified factors, subsequent encounter; Z96.642 Presence of left artificial hip joint | CPT/HCPCS: 99212 ==

== ENCOUNTER → 2023-01-30 09:35 | Outpatient (BNVA) | payer OTHER, MEDICARE, SELFPAY | PROVIDERS: PCP Family Medicine; Visit Provider Orthopaedic Surgery ==

== ENCOUNTER 2023-02-06 09:49 | Outpatient (AMB) | payer OTHER, MEDICARE, SELFPAY ==
--- NOTE | 2023-02-06 10:02 | A.OFFVIS_ITS ---
Intake Vital Signs 02/06/23 10:07 Height 5 ft 5 in Intake Visit Reasons: Postop-LT shoulder dislocation,LT hip trina 12/19/22 Intake Note: Chiquita is a 77 year old female who presents today for a post operative follow up, s/p Left Hip Hemiarthroplasty 12/19/22. Patient states she is a little upset because of miscommunication with [employer] therapy. Patient wants to know if she is able to drive. Reports she is doing well. Allergies aspirin [ASPIRIN] Allergy (Unknown, Verified 02/06/23 10:11) RASH Sulfa (Sulfonamide Antibiotics) [SULFA (SULFONAMIDE ANTIBIOTICS)] Allergy (Unknown, Verified 02/06/23 10:11) RASH flecainide Adverse Reaction (Intermediate, Verified 02/06/23 10:11) Dizziness amiodarone Adverse Reaction (Mild, Verified 02/06/23 10:11) Dizziness adhesives Adverse Reaction (Uncoded 02/06/23 10:11) Unknown HPI Postop-LT shoulder dislocation,LT hip trina 12/19/22 HPI Details Chiquita is a 77 year old woman who presents ~6 weeks S/P left hip hemiarthoplasty after a femoral neck fx on 12/15/22. She also has a closed fracture dislocation of her left shoulder. She says she is doing well and continues to walk without using her cane. She wants to know if she is able to drive now. She continues to have numbness in her left hand since her injury. She says there was an issue with her shoulder PT, that the instructions were unclear and she was unable to attend. She is doing well otherwise in regards to her shoulder and is able to use it for most daily activities. [facility] Medical History Atrial fibrillation with RVR Cardiomyopathy Chronic heart failure with preserved ejection fraction (HFpEF) Chronic heart failure with preserved ejection fraction (HFpEF) Diastolic dysfunction History of cardiomyopathy History of cardioversion HTN (hypertension) NSTEMI (non-ST elevated myocardial infarction) Paroxysmal atrial fibrillation Paroxysmal atrial fibrillation Preoperative cardiovascular examination Pulmonary hypertension Pulmonary hypertension Surgical History History of back surgery Hx of cardiac cath Hx of hand surgery Hx of total hip arthroplasty S/P cardiac catheterization Family History Father Cancer Mother Stroke Brother Atrial fibrillation Sister Cardiovascular disease Atrial fibrillation Social History Household Members: None Housing: House Do you presently have visiting nurse or other home services: No Unable to assess alcohol history related to: Unknown Alcohol intake: never Patient Tobacco Use Status: Never used Tobacco Second Hand Smoke Exposure: No Advance Directives Date on File: 12/18/22 service: No Current occupational status: retired Physical Exam Const General: no acute distress and alert Orientation/consciousness: patient oriented x3 Neuro General: patient oriented x3 Extrem Other: Left Hip: Incision C/D/I One small bolus area ~2-3mm with scant drainage Psych Appearance: grossly normal Affect: normal affect Attitude: cooperative Assessment & Plan Assessment & Plan (1) S/P hip hemiarthroplasty: Code(s): Z96.649 - Presence of unspecified artificial hip joint Plan: This is a 77 year old woman S/P left hip hemiarthroplasty, DOS: 12/19/22. She is doing well, without any pain, and is able to ambulate without an assistive device. Her incision is healing well, and was covered with a sterile dressing today. She will follow up in 4 weeks, after she has transitioned to outpatient PT. (2) Closed fracture dislocation of left shoulder: Code(s): S42.92XA - Fracture of left shoulder girdle, part unspecified, initial encounter for closed fracture Plan: Closed fracture dislocation of the left shoulder, S/P fall, DOI: 12/15/22. I discussed surgery for her. At this time this would not be simple, especially given her axillary nerve injury, and ultimately she is adamant she does not want surgery. We will see how this develops over time and will address any concerns she may have at a later date. She will continue with OT, and contact me if there is any issues with her therapy orders. She has no restrictions for her shoulder therapy, and can use her shoulder for daily activity. (3) Injury of axillary nerve, left arm, subsequent encounter: Code(s): S44.32XD - Injury of axillary nerve, left arm, subsequent encounter Plan: Left deltoid, after left prox humerus fx/dislocation. I discussed this with her and explained that I expect her function to return and that there is no intervention currently warranted. Plan Scribed for Leonardo Vizcarra MD by Porfirio Gongora, biomedical engineering internship, on 02/06/23 at 10:15 AM, EST. Coding Level of Care Code Global (79780) Diagnoses S/P hip hemiarthroplasty Z96.649 Closed fracture dislocation of left shoulder S42.92XA Injury of axillary nerve, left arm, subsequent encounter S44.32XD
== END 2023-02-06 10:47 | disposition home or self-care (01) ==
PROVIDERS: PCP Family Medicine; Visit Provider Orthopaedic Surgery
DX: Z96.649 Presence of unspecified artificial hip joint (principal); S42.92XA Fracture of left shoulder girdle, part unspecified, initial encounter for closed fracture; S44.3 Injury of axillary nerve
CPT/HCPCS: 99024

== ENCOUNTER → 2023-02-06 09:49 | Outpatient (BNVA) | payer OTHER, MEDICARE, SELFPAY | PROVIDERS: PCP Family Medicine; Visit Provider Orthopaedic Surgery ==

== ENCOUNTER 2023-03-05 12:09 | Outpatient (REF) | payer OTHER, MEDICARE, SELFPAY ==
--- NOTE | ~2023-03-05 | XR_ITS ---
EXAMINATION: XR SHOULDER, LEFT CLINICAL INFORMATION: Shoulder pain COMPARISON: 12/20/2022 TECHNIQUE: Neutral AP and transscapular Y views of the left shoulder. FINDINGS: Redemonstration of displaced fracture fragment along the greater tuberosity posterior to the humeral head. Alignment of the glenohumeral joint maintained. Acromioclavicular joint is stable. XR/XR shoulder LT min 2V IMPRESSION: Redemonstration of displaced fracture fragment along the greater tuberosity posterior to the humeral head.
== END 2023-03-05 12:10 | disposition home or self-care (01) ==
LOC: HO.HOSX 12:09
PROVIDERS: Visit Provider Orthopaedic Surgery
DX: S42.92XD Fracture of left shoulder girdle, part unspecified, subsequent encounter for fracture with routine healing (principal); S42.252D Displaced fracture of greater tuberosity of left humerus, subsequent encounter for fracture with routine healing; S44.3 Injury of axillary nerve; W01.0XXD Fall on same level from slipping, tripping and stumbling without subsequent striking against object, subsequent encounter; Z96.642 Presence of left artificial hip joint
CPT/HCPCS: 73030

== ENCOUNTER 2023-03-05 13:19 | Outpatient (AMB) | payer OTHER, MEDICARE, SELFPAY ==
--- NOTE | 2023-03-05 13:48 | MHC.OFFVIS ---
Intake Intake Visit Reasons: PO-LT shoulder dislocation,LT hip mj 12/19/22 Intake Note: Chiquita is a 77 year old female who presnts today for a post operative appintment s/p Left Hip Mj 12/19/22 and Left Shoulder dislocation. Allergies aspirin [ASPIRIN] Allergy (Unknown, Verified 03/05/23 13:48) RASH Sulfa (Sulfonamide Antibiotics) [SULFA (SULFONAMIDE ANTIBIOTICS)] Allergy (Unknown, Verified 03/05/23 13:48) RASH flecainide Adverse Reaction (Intermediate, Verified 03/05/23 13:48) Dizziness amiodarone Adverse Reaction (Mild, Verified 03/05/23 13:48) Dizziness adhesives Adverse Reaction (Uncoded 03/05/23 13:48) Unknown HPI PO-LT shoulder dislocation,LT hip mj 12/19/22 HPI Details Chiquita is a 77 year old woman who presents ~6 weeks S/P left hip hemiarthoplasty after a femoral neck fx on 12/15/22. This occurred after a slip and fall onto her left shoulder at work. She also has a closed fracture dislocation of her left greater tuberosity. She says in regards to her hip she is doing well and continues to walk without using her cane. She continues to have numbness in her left hand since her injury. She says there was an issue with her shoulder PT, that the instructions were unclear and she was unable to attend. She is doing well otherwise in regards to her shoulder and is able to use it for most daily activities.? ? PFSH Medical History Atrial fibrillation with RVR Cardiomyopathy Chronic heart failure with preserved ejection fraction (HFpEF) Chronic heart failure with preserved ejection fraction (HFpEF) Diastolic dysfunction History of cardiomyopathy History of cardioversion HTN (hypertension) NSTEMI (non-ST elevated myocardial infarction) Paroxysmal atrial fibrillation Paroxysmal atrial fibrillation Preoperative cardiovascular examination Pulmonary hypertension Pulmonary hypertension Surgical History History of back surgery Hx of cardiac cath Hx of hand surgery Hx of total hip arthroplasty S/P cardiac catheterization Family History Father Cancer Mother Stroke Brother Atrial fibrillation Sister Cardiovascular disease Atrial fibrillation Social History Household Members: None Housing: House Do you presently have visiting nurse or other home services: No Unable to assess alcohol history related to: Unknown Alcohol intake: never Patient Tobacco Use Status: Never used Tobacco Second Hand Smoke Exposure: No Advance Directives Date on File: 12/18/22 service: No Current occupational status: retired Review of Systems Const All systems reviewed & are unremarkable except as noted in HPI and below Physical Exam Const General: no acute distress and alert Orientation/consciousness: patient oriented x3 Neuro General: patient oriented x3 Extrem Other: Left Hip: Small seroma developed in the middle of the incision No groin pain or hip pain Walking well Left Shoulder: Diminished sensation over lateral deltoid No active deltoid No active ER of shoulder Psych Appearance: grossly normal Affect: normal affect Attitude: cooperative Results Reviewed Results Reviewed: I personally reviewed relevant radiographs. Right MELODY in expected post operative position with no hardware complications or evidence of loosening Left EUCEDA in expected post operative position with no hardware complications or evidence of loosening 1.? Displaced fracture fragment along the greater tuberosity posterior to humeral head. There is normal alignment of glenohumeral joint status post reduction comparison to 12/20/2022. Assessment & Plan Assessment & Plan (1) Closed fracture dislocation of left shoulder: Code(s): S42.92XA - Fracture of left shoulder girdle, part unspecified, initial encounter for closed fracture Plan: Closed fracture dislocation of the left shoulder with an avulsion fracture of the greater tuberosity, S/P fall, DOI: 12/15/22. I discussed surgery for her. At this time this would not be simple, especially given her axillary nerve injury, and ultimately she is adamant she does not want surgery. We will see how this develops over time and will address any concerns she may have at a later date. She will continue with therapy and contact me if there is any issues with her therapy orders. She has no restrictions for her shoulder therapy, and can use her shoulder for daily activity. She will continue to be out of work. (2) Injury of axillary nerve, left arm, subsequent encounter: Code(s): S44.32XD - Injury of axillary nerve, left arm, subsequent encounter Plan: Left deltoid, after left prox humerus fx/dislocation. I discussed this with her and explained that I expect her function to return and that there is no intervention currently warranted. I ordered an EMG nerve conduction study, she will follow up when completed for review. (3) S/P hip hemiarthroplasty: Code(s): Z96.649 - Presence of unspecified artificial hip joint Plan: This is a 77 year old woman S/P left hip hemiarthroplasty, DOS: 12/19/22. She is doing well, without any pain, and is able to ambulate without an assistive device. Her incision is healing well, and was covered with a sterile dressing today. (4) Closed fracture of greater tuberosity of humerus: Code(s): S42.253A - Displaced fracture of greater tuberosity of unspecified humerus, initial encounter for closed fracture Plan Scribed for Leonardo Vizcarra MD by Porfirio Gongora, neuropsychology medical consultant, on 03/05/23 at 2:00 PM, EST. Orders: Orders XR shoulder LT min 2V 03/05/23 M25.519 - Pain in unspecified shoulder Coding Level of Care Code Est Pt Level 4 (05775) Global (17281) Diagnoses Closed fracture dislocation of left shoulder S42.92XA Injury of axillary nerve, left arm, subsequent encounter S44.32XD S/P hip hemiarthroplasty Z96.649 Closed fracture of greater tuberosity of humerus S42.253A
== END 2023-03-05 14:07 | disposition home or self-care (01) ==
PROVIDERS: PCP Family Medicine; Visit Provider Orthopaedic Surgery
DX: S42.92XA Fracture of left shoulder girdle, part unspecified, initial encounter for closed fracture (principal); S44.3 Injury of axillary nerve; Z96.649 Presence of unspecified artificial hip joint; S42.253A Displaced fracture of greater tuberosity of unspecified humerus, initial encounter for closed fracture
CPT/HCPCS: 99024

== ENCOUNTER 2023-04-06 10:29 | Outpatient (AMB) | payer OTHER, MEDICARE, SELFPAY ==
[2023-04-06 10:32] VITALS: BP 122/62; PULSE 67
--- NOTE | 2023-04-06 10:32 | A.OFFVIS_ITS ---
Intake Vital Signs 04/06/23 10:32 Height 5 ft 5 in Weight 180 lb 5.41 oz BMI 30.0 BP 122/62 Blood Pressure Location Lt brachial Position Sitting Pulse 67 Pulse Source Pulse Oximeter Intake Visit Reasons: 3 month f/u Intake Note: 3 month follow up. Admissions Officer Required: No Accompanied by: Self / Same As Patient Allergies aspirin [ASPIRIN] Allergy (Unknown, Verified 04/06/23 10:34) RASH Sulfa (Sulfonamide Antibiotics) [SULFA (SULFONAMIDE ANTIBIOTICS)] Allergy (Unknown, Verified 04/06/23 10:34) RASH flecainide Adverse Reaction (Intermediate, Verified 04/06/23 10:34) Dizziness amiodarone Adverse Reaction (Mild, Verified 04/06/23 10:34) Dizziness adhesives Adverse Reaction (Uncoded 04/06/23 10:34) Unknown Medication List - Last Reconciled 04/06/23 by Franco Brennan MD acetaminophen 650 mg (2 x 325 mg) PO Q8H ascorbic acid (vitamin C) 500 mg PO DAILY atorvastatin 40 mg PO DAILY 90 days carvedilol (Coreg) 12.5 mg PO BID 90 days cholecalciferol (vitamin D3) 50 mcg PO DAILY coenzyme Q10 100 mg PO DAILY diltiazem HCl (Cardizem CD) 120 mg See Protocol PO DAILY 90 days empagliflozin (Jardiance) 10 mg PO DAILY fexofenadine (Shea Allergy) 180 mg PO DAILY furosemide 40 mg PO DAILY gabapentin 300 mg PO BEDTIME ipratropium-albuterol 0.5 mg-3 mg(2.5 mg base)/3 mL 3 mL inhalation Q4-6H PRN magnesium 250 mg PO BEDTIME meloxicam 15 mg PO DAILY montelukast 10 mg PO BEDTIME multivitamin 1 tab PO DAILY omeprazole 40 mg PO BEDTIME ondansetron HCl 8 mg PO BID rivaroxaban (Xarelto) 20 mg PO DAILY@1700 spironolactone 25 mg PO QAM turmeric 100 mg PO DAILY@1200 vitamin E (dl, acetate) 180 mg PO DAILY HPI HPI Comments History of Present Illness Details Chiquita comes for follow-up. She has no obvious cardiac symptoms. She denies any prolonged palpitation irregular heartbeat. No worsening shortness of breath. She denies any orthopnea, PND, leg edema. Notes low blood pressure, late morning around 11:00. She takes multiple medications the morning. She denies any lightheadedness associated with. No syncopal episodes. No leg edema. Takes all her medications. [facility] Medical History (Updated 04/06/23 @ 10:48 by Franco Brennan MD) Atrial fibrillation with RVR Cardiomyopathy Chronic heart failure with preserved ejection fraction (HFpEF) Chronic heart failure with preserved ejection fraction (HFpEF) Diastolic dysfunction History of cardiomyopathy History of cardioversion HTN (hypertension) NSTEMI (non-ST elevated myocardial infarction) Paroxysmal atrial fibrillation Paroxysmal atrial fibrillation Preoperative cardiovascular examination Pulmonary hypertension Pulmonary hypertension Surgical History History of back surgery Hx of cardiac cath Hx of hand surgery Hx of total hip arthroplasty S/P cardiac catheterization Family History Father Cancer Mother Stroke Brother Atrial fibrillation Sister Cardiovascular disease Atrial fibrillation Social History Household Members: None Housing: House Do you presently have visiting nurse or other home services: No Unable to assess alcohol history related to: Unknown Alcohol intake: never Patient Tobacco Use Status: Never used Tobacco Second Hand Smoke Exposure: No Advance Directives Date on File: 12/18/22 service: No Current occupational status: retired Review of Systems Const Denies weakness ENT Denies dizziness Card Denies chest pain, Denies chest pain with activity, Denies syncope, Denies rapid heart rate, Denies pedal edema, Denies edema, Denies leg edema, Denies lightheadedness, Denies palpitations, Denies dyspnea, Denies dyspnea on exertion and Denies orthopnea Resp Denies cough, Denies dyspnea and Denies dyspnea on exertion GI Denies hematochezia and Denies change in stool character Musc Denies abnormal gait, Denies muscle cramps, Denies muscle weakness, Denies numbness, Denies radiating pain into limb and Denies tingling Neuro Denies abnormal gait, Denies dizziness, Denies syncope, Denies numbness, Denies tingling and Denies weakness Endo Denies palpitations Physical Exam Vital Signs: Last Vital Signs Pulse 67 04/06/23 10:32 BP 122/62 04/06/23 10:32 BMI result Body Mass Index 30.0 Const General: cooperative, comfortable, no acute distress, alert and awake Nutritional Appearance: overweight Orientation/consciousness: patient oriented x3 Limitations: other limitations (In a stretcher) Neck Neck: Yes trachea midline, Yes supple and Yes no JVD Chest Chest palpation & inspection: abnormal inspection of the chest kyphotic and scoliotic Resp Effort & Inspection: normal respiratory effort Auscultation: clear to auscultation bilaterally and diminished lung sounds Cardio Jugular venous distension: no JVD Palpation: normal PMI Rate: regular rate Rhythm: regular rhythm Heart sounds: S1 normal heart sound present and S2 normal heart sound present GI Auscultation: normal bowel sounds Skin General skin exam: no rashes or lesions noted Neuro General: patient oriented x3 and no focal motor deficits Extrem General: Yes no clubbing, cyanosis or edema Psych Appearance: grossly normal Assessment & Plan Assessment & Plan (1) Paroxysmal atrial fibrillation: Code(s): I48.0 - Paroxysmal atrial fibrillation Plan: Paroxysmal atrial fibrillation without any obvious clinical recurrence at this time without antiarrhythmic drug therapy. She has done always very well with rhythm control approach will continue pursue rhythm control approach but avoid antiarrhythmic drug therapy due to intolerance to multiple medications. Continue carvedilol and diltiazem therapy. Avoidance of stimulants was discussed. She does recurrent atrial fibrillation plan is AV estiven ablation with pacing therapy. She is agreeable to that. Continue oral anticoagulation with Xarelto. Semi annual renal function test should be pursued. (2) Chronic heart failure with preserved ejection fraction (HFpEF): Code(s): I50.32 - Chronic diastolic (congestive) heart failure Plan: Heart failure preserved ejection fraction has done well with rhythm control approach. Continue pursue rhythm control approach as Ms. Possible. Continue current neurohormonal modulation with spironolactone and Jardiance. However given her low blood pressure will reduce spironolactone to 12.5 mg daily. Switch diltiazem to nighttime to prevent syncopal episodes. Daily weight monitoring avoidance of salt loading was discussed. Continue current diuretic regimen. Will follow up in the clinic in 3 months time, sooner p.r.n.. Thank you for allowing me to partake in the care Medications: Changed From diltiazem HCl (Cardizem CD) 120 mg See Protocol PO DAILY 90 days 90 caps 1RF To diltiazem HCl (Cardizem CD) 120 mg See Protocol PO QPM 90 caps 1RF 90 days From spironolactone 25 mg PO QAM To spironolactone 12.5 mg PO QAM Coding Level of Care Code Est Pt Level 4 (06238) Diagnoses Paroxysmal atrial fibrillation I48.0 Chronic heart failure with preserved ejection fraction (HFpEF) I50.32
== END 2023-04-06 10:46 | disposition home or self-care (01) ==
PROVIDERS: PCP Family Medicine; Referring Provider Family Medicine; Visit Provider Internal Medicine Cardiovascular Disease
DX: I48.0 Paroxysmal atrial fibrillation (principal); I50.32 Chronic diastolic (congestive) heart failure
CPT/HCPCS: 99214

== ENCOUNTER → 2023-04-06 10:29 | Outpatient (BNVA) | payer OTHER, MEDICARE, SELFPAY | PROVIDERS: PCP Family Medicine; Referring Provider Family Medicine; Visit Provider Internal Medicine Cardiovascular Disease | DX: I48.0 Paroxysmal atrial fibrillation (principal); I50.32 Chronic diastolic (congestive) heart failure; Z79.01 Long term (current) use of anticoagulants; Z79.899 Other long term (current) drug therapy | CPT/HCPCS: 99212 ==

== ENCOUNTER 2023-04-16 14:10 | Outpatient (REF) | payer MEDICARE, SELFPAY ==
--- NOTE | ~2023-04-16 | MM_ITS ---
EXAMINATION: BONE DENSITOMETRY CLINICAL INDICATION: Age-related osteoporosis without current pathological fracture. COMPARISON: This is the patient's baseline examination. TECHNIQUE: Using a Quintiq DXA System (software version: 13.1) manufactured by [employer]™, dual-energy x-ray absorptiometry was performed of the lumbar spine. Patient had bilateral wrist and hip surgery. The images are of good technical quality. Summary results are attached. FINDINGS: AP SPINE L2-L4 (excluding L1): The data of L1-L4 has been changed to exclude the L1 vertebral body, because degenerative sclerosis at this level may cause overestimation of lumbar spine density. BMD 1.434 g/cm2, Z-score 3.2, T-score 1.9, normal. IDENTIFIED RISK FACTORS: Menopause, history of fracture (adult). HISTORY OF FRACTURE: Femur/hip, wrist, shoulder. MEDICATIONS: Vitamin D. MM/XR DEXA axial skeleton IMPRESSION: 1. DIAGNOSIS: Normal bone density based on the lowest T-score value of 1.9 in the lumbar spine applying World Health Organization criteria. 2. 10-YEAR FRACTURE RISK PREDICTION, FRAX: Not performed in this patient without a femoral neck BMD measurement. 3. Treatment Recommendations: NOF guidelines recommend consideration for treatment in postmenopausal women and men age 50 and older presenting with the following: -A hip or vertebral (clinical or morphometric) fracture. -T-score less than or equal to -2.5 at the femoral neck or spine after appropriate evaluation to exclude secondary causes. -Low bone mass at the hip or spine and a 10-year fracture probability by FRAX of greater than or equal to 3% for hip fracture or greater than or equal to 20% for major osteoporotic fracture based on the [place] adapted WHO algorithm. 4. Other Recommendations: All treatment decisions require clinical judgment and consideration of individual patient factors, including patient preferences, comorbidities, previous drug use, risk factors not captured in the FRAX model (e.g. frailty, falls, vitamin D deficiency, increased bone turnover, interval significant decline in bone density) and possible under or overestimation of fracture risk by FRAX. FUTURE SCAN RECOMMENDATION: People with diagnosed cases of osteoporosis or at high risk for fracture should have regular bone mineral density tests. For patients eligible for Medicare, routine testing is allowed once every 2 years. The testing frequency can be increased to one year for patients who have rapidly progressing disease, those who are receiving or discontinuing medical therapy to restore bone mass, or have additional risk factors.
== END 2023-04-16 14:11 | disposition home or self-care (01) ==
LOC: HO.MAMMO 14:10
PROVIDERS: Visit Provider Family Medicine
DX: Z13.820 Encounter for screening for osteoporosis (principal); M81.0 Age-related osteoporosis without current pathological fracture; Z78.0 Asymptomatic menopausal state; R29.6 Repeated falls
CPT/HCPCS: 77080

== ENCOUNTER → 2023-04-16 14:30 | Outpatient (BNV) | payer MEDICARE, SELFPAY | PROVIDERS: Visit Provider Radiology Diagnostic Radiology | DX: M81.0 Age-related osteoporosis without current pathological fracture (principal) | CPT/HCPCS: 77080 ==

== ENCOUNTER 2023-07-06 15:52 | Inpatient (IN) | payer MEDICARE, SELFPAY ==
[2023-07-06] VITALS (10 sets, daily range): BP systolic 117–148; BP diastolic 66–93; PULSE 65–140; RESP 14–18; TEMP 36.6–37.2; O2SAT 92–98; BMI 31.1
--- NOTE | ~2023-07-06 | XR_ITS ---
EXAMINATION: XR CHEST CLINICAL INFORMATION: Palpitations. COMPARISON: Chest x-ray 12/18/2022 TECHNIQUE: Frontal view of the chest was obtained. FINDINGS: The lungs are well-expanded with left basilar atelectasis. Rest of the lungs are clear. The heart size and pulmonary vascularity is normal. No gross bony abnormality seen. XR/XR chest 1V IMPRESSION: Left basilar atelectasis..
--- NOTE | 2023-07-06 15:54 | ECG_ITS ---
Test Reason : IRREGULAR HEART RATE Blood Pressure : / mmHG Vent. Rate : 140 BPM Atrial Rate : 000 BPM P-R Int : 000 ms QRS Dur : 078 ms QT Int : 314 ms P-R-T Axes : 000 029 031 degrees QTc Int : 479 ms Supraventricular tachycardia Nonspecific T wave abnormality Abnormal ECG When compared with ECG of 22-DEC-2022 07:58, Vent. rate has increased BY 63 BPM Nonspecific T wave abnormality now evident in Lateral leads Referred By: Generic ED Physician Electronically Signed By:LORE FISCHER MD
--- NOTE | 2023-07-06 16:05 | ED.CHESTPAIN ---
HPI - Chest Pain General Chief Complaint: Arrhythmia/Palpitations Stated Complaint: irregular heart rate Time Seen by Provider: 07/06/23 16:14 Source: patient Mode of arrival: ambulatory Limitations: no limitations History of Present Illness HPI narrative: This is a 78-year-old female with history of paroxysmal atrial fibrillation on Xarelto for anticoagulation, carvedilol, and diltiazem presented from the PCP office after was found accidentally in atrial fibrillation with a rapid ventricular response, patient feels generalized weakness, very mild shortness of breath, but no CP or palpitation, no weakness, no numbness, no headache. Related Data Home Medications Medication Instructions Recorded Confirmed montelukast 10 mg tablet 10 mg PO BEDTIME 05/16/20 04/06/23 fexofenadine 180 mg tablet 180 mg PO DAILY 06/21/21 04/06/23 ([facility]a Allergy) coenzyme Q10 100 mg tablet 100 mg PO DAILY 07/28/21 04/06/23 magnesium 250 mg tablet 250 mg PO BEDTIME 07/28/21 04/06/23 multivitamin 1 tab PO DAILY 07/28/21 04/06/23 vitamin E (dl, acetate) 180 mg 180 mg PO DAILY 07/28/22 04/06/23 (400 unit) capsule ascorbic acid (vitamin C) 500 mg 500 mg PO DAILY 09/26/22 04/06/23 tablet furosemide 40 mg tablet 40 mg PO DAILY 09/26/22 04/06/23 omeprazole 40 mg capsule,delayed 40 mg PO BEDTIME 09/26/22 04/06/23 release turmeric 400 mg capsule 100 mg PO DAILY@1200 11/03/22 04/06/23 cholecalciferol (vitamin D3) 50 50 mcg PO DAILY 12/18/22 04/06/23 mcg (2,000 unit) capsule ondansetron HCl 4 mg tablet 8 mg PO BID 01/01/23 04/06/23 gabapentin 300 mg capsule 300 mg PO BEDTIME 04/06/23 04/06/23 meloxicam 15 mg tablet 15 mg PO DAILY 04/06/23 04/06/23 spironolactone 25 mg tablet 12.5 mg PO QAM 04/06/23 04/06/23 Previous Rx's Medication Instructions Recorded ipratropium 0.5 mg-albuterol 3 mg 3 ml inhalation Q4-6H PRN for 12/02/22 (2.5 mg base)/3 mL nebulization wheezing #180 mL soln acetaminophen 325 mg tablet 650 mg (2 x 325 mg) PO Q8H #60 tabs 12/23/22 rivaroxaban 20 mg tablet (Xarelto) 20 mg PO DAILY@1700 #90 tabs 01/19/23 carvedilol 12.5 mg tablet (Coreg) 12.5 mg PO BID 90 days #180 tabs 04/16/23 atorvastatin 40 mg tablet 40 mg PO DAILY #90 tabs 04/27/23 empagliflozin 10 mg tablet 10 mg PO DAILY #30 tabs 05/12/23 (Jardiance) diltiazem HCl 120 mg 120 mg PO DAILY #90 caps 06/01/23 capsule,extended release 24 hr Allergies Allergy/AdvReac Type Severity Reaction Status Date / Time aspirin [ASPIRIN] Allergy Unknown RASH Verified 04/06/23 10:34 Sulfa (Sulfonamide Allergy Unknown RASH Verified 04/06/23 10:34 Antibiotics) [SULFA (SULFONAMIDE ANTIBIOTICS)] flecainide AdvReac Intermediate Dizziness Verified 04/06/23 10:34 amiodarone AdvReac Mild Dizziness Verified 04/06/23 10:34 adhesives AdvReac Unknown Uncoded 04/06/23 10:34 Review of Systems Review of Systems: All other systems are reviewed and are negative Constitutional: Reports as per HPI and Reports no additional constitutional complaints Eyes: Reports as per HPI and Reports no additional eye complaints Reports system reviewed and no additional complaints, except as documented Cardiovascular: Reports as per HPI and Reports no additional cardiovascular complaints Respiratory: Reports as per HPI and Reports no additional respiratory complaints Gastrointestinal: Reports as per HPI and Reports no additional gastrointestinal complaints Genitourinary: Reports no additional female genitourinary complaints Musculoskeletal: Reports no additional musculoskeletal complaints Skin/Breast: Reports system reviewed and no additional complaints, except as docu Psychiatric: Reports no additional psychiatric complaints Endocrine: Reports no additional endocrine complaints Hematologic/Lymphatic: Reports no additional hematologic/lymphatic complaints Allergic/Immunologic: Reports no additional allergic/immunologic complaints Reports system reviewed and no additional complaints, except as documented and Reports Abnormal speech present PMFSH Past Medical History Medical History Preoperative cardiovascular examination NSTEMI (non-ST elevated myocardial infarction) Atrial fibrillation with RVR Pulmonary hypertension Paroxysmal atrial fibrillation Chronic heart failure with preserved ejection fraction (HFpEF) Chronic heart failure with preserved ejection fraction (HFpEF) Cardiomyopathy Pulmonary hypertension Diastolic dysfunction History of cardiomyopathy HTN (hypertension) Paroxysmal atrial fibrillation History of cardioversion Surgical History S/P cardiac catheterization Hx of total hip arthroplasty Hx of cardiac cath Hx of hand surgery History of back surgery Family History Family History Father Cancer Mother Stroke Brother Atrial fibrillation Sister Cardiovascular disease Atrial fibrillation Social History Household Members: None Housing: House Do you presently have visiting nurse or other home services: No Unable to assess alcohol history related to: Unknown Alcohol intake: never Patient Tobacco Use Status: Never used Tobacco Second Hand Smoke Exposure: No Advance Directives: Yes Advance Directives on File: Yes Advance Directives Date on File: 12/18/22 service: No Current occupational status: retired Physical Exam Vital Signs: Vital Signs: Last Vital Signs Temp 98.1 F 07/06/23 19:42 Pulse 136 H 07/06/23 19:42 Resp 15 07/06/23 19:42 BP 135/93 H 07/06/23 19:42 Pulse Ox 98 07/06/23 19:42 O2 Del Method Room Air 07/06/23 19:42 BMI result Body Mass Index 31.1 Vital signs have been reviewed and appear to be correct. Blood pressure elevated. Heart rate elevated. Respiratory rate normal. Temperature normal. Oxygen saturation normal. Appearance: Alert. Oriented X3. No acute distress. Head: Normal external exam. Normocephalic. Atraumatic. No [place] signs noted. No raccoon eyes noted Eyes: PERRLA. EOMI. Conjunctiva and sclera normal. Eyelids normal. ENT: TM's Normal. Pharynx normal. Uvula midline. Moist mucous membranes. No trismus noted. No drooling noted. No muffled voice noted. Neck: Normal inspection. Neck supple. FROM. No adenopathy. Thyroid Normal. No meningeal signs. No neck mass noted. CVS: Normal heart rate and rhythm. Heart sound normal. No murmurs noted. Pulses normal throughout. Respiratory: No respiratory distress. Painless inspiration. Breath sounds normal. No wheezes/rales/rhonchi noted. Chest nontender. No accessory muscle usage noted or decreased air movement noted. Abdomen: Soft and nontender. Bowel sounds normal in all 4 quadrants. No distention noted. No organomegaly noted. No visible injury noted. Back: No CVA tenderness. Full range of motion noted. Skin: Skin warm and dry. Normal skin color. Normal skin turgor. No rashes/lesions/lacerations noted. Extremities: No lower extremity edema. Extremities exhibit normal range of motion. Extremities nontender. Neuro: Oriented X 3. Cranial nerve exam: II-XII are grossly intact No motor deficit. No sensory deficit. Reflexes normal. Course Course Course Narrative: This is a rapid medical exam. Deferred additional HPI, ROS, PE to primary provider. 78-year-old with history of afib on AC therapy here with complaints of palpitations, found to be in rapid afib at PCP. Will need labs, EKG, CXR. VSS HR 140's-brought in to room directly by charge nurse Reevaluation(s) Reevaluation #1: 78-year-old female with known history of paroxysmal atrial fibrillation patient takes Cardizem p.o. at home and Estephania came in with heart rate of 144 otherwise no associated symptoms, received 20 mg IV Cardizem in the ED followed by 60 mg orally patient converted into a normal sinus rhythm, patient remained asymptomatic. Patient has already an appointment with Dr. Brennan (patient's radiological technician) tomorrow. No further intervention is needed from emergency medicine standpoint of view. Will discharge to follow-up with PCP/radiological technician. Time: 18:07 Reevaluation #2: The plan was to discharge the patient after monitoring after administrating Cardizem IV/p.o. Patient converted again to atrial fibrillation at 130's diltiazem was given IV and patient was placed on IV Cardizem drip to maintain heart rate will admit the patient. EKG is showing regular narrow complex tachycardia with no clear rhythm. Time: 19:30 Reevaluation #3: Heart rate now is in the 70s patient remained asymptomatic will admit 10 you with Cardizem drip. Time: 20:13 Medications Administered Discontinued Medications Generic Name Dose Route Start Last Admin Trade Name Freq PRN Reason Stop Dose Admin Diltiazem HCl 20 mg 07/06/23 16:22 07/06/23 16:35 Diltiazem Hcl 50 Mg/10 Ml Vial IVPUSH 07/06/23 16:23 20 mg STAT STA Administration Diltiazem HCl 60 mg 07/06/23 16:48 07/06/23 18:34 Diltiazem Hcl 60 Mg Tablet PO 07/06/23 16:49 60 mg ONCE ONE Administration Protocol Diltiazem HCl 20 mg 07/06/23 19:27 07/06/23 19:51 Diltiazem Hcl 50 Mg/10 Ml Vial IVPUSH 07/06/23 19:28 20 mg STAT STA Administration Sodium Chloride 1,000 mls @ 500 mls/hr 07/06/23 16:27 07/06/23 19:06 Ns IV 07/06/23 18:26 Infused .Q2H ONE Infusion Medical Decision Making Differential Diagnosis Differential Diagnoses: The differential diagnosis associated with the presentation includes (Atrial fibrillation, sinus tachycardia, ACS, CHF, pneumonia, pneumothorax, severe anemia, electrolyte abnormality.) Admission/Observation Consideration of admission/observation: Escalation of care including admission/observation considered Lab Data MDM Lab Attestation statement: I reviewed the patient's lab results. 07/06/23 16:43 07/06/23 16:43 Labs: Lab Results 07/06/23 Range/Units 16:43 WBC 7.8 (4.8-10.8) X10*3/uL RBC 4.12 L (4.20-5.50) X10*6/uL Hgb 13.3 (12.0-16.0) g/dl Hct 40.1 (37.0-47.0) % MCV 97.3 (80.0-98.0) fL MCH 32.3 (27.0-33.0) pg MCHC 33.2 (31.0-35.0) g/dl RDW 11.9 (11.0-16.0) % Plt Count 219 (160-400) X10*3/uL MPV 8.9 L (9.4-12.3) fL Immature Gran % (Auto) 0.3 (0.0-0.4) % Neut % (Auto) 61.4 (45-73) % Lymph % (Auto) 25.2 (20-40) % [place] % (Auto) 10.1 (2-11) % Eos % (Auto) 2.2 (0-4) % Baso % (Auto) 0.8 (0-2) % Lymph # (Auto) 2.0 (1.2-4.9) X10*3/uL [place] # (Auto) 0.8 (0.1-1.2) X10*3/uL Eos # (Auto) 0.2 (0.0-0.4) X10*3/uL Baso # (Auto) 0.1 (0.0-0.2) X10*3/uL Abs Immat Gran (auto) 0.02 (0.00-0.03) X10*3/uL Absolute Neuts (auto) 4.8 (2.0-8.3) x10*3/uL Absolute Nucleated RBC 0.000 (0.0-0.012) X10*3/uL Nucleated RBC % (auto) 0.0 (0.0-0.2) /100WBC PT 14.1 H (11.1-13.3) SEC INR 1.2 H (0.9-1.1) Sodium 139 (135-145) mmol/L Potassium 4.8 (3.3-5.1) mmol/L Chloride 110 H (96-108) mmol/L Carbon Dioxide 22 (22-29) mmol/L Anion Gap 12 (12-20) BUN 49 H (9-16) mg/dL Creatinine 1.69 H (0.5-1.4) mg/dL Estim Creat Clear Calc 29.0 Estimated GFR 29 Random Glucose 124 H (60-115) mg/dL Calcium 9.4 D (8.4-10.2) mg/dL Magnesium 2.6 (1.6-2.6) mg/dL Total Bilirubin 0.6 (0.0-1.0) mg/dL Direct Bilirubin 0.2 (0.0-0.5) mg/dL AST 23 (5-31) U/L ALT 20 (0-31) U/L Alkaline Phosphatase 77 (39-117) U/L Troponin I High Sens 7.9 (<3.5-17.0) ng/L Total Protein 7.4 (6.5-8.0) g/dL Albumin 4.3 (3.5-5.0) g/dL TSH 3.92 (0.32-4.0) uIU/mL Free T4 0.97 (0.71-1.85) ng/dL Independent Interpretation I performed an independent interpretation of an: EKG (1. Unclear underlying rhythm rapid and regular at 140 beats per minutes, normal axis deviation, otherwise normal intervals. 2. Sinus rhythm with first-degree AV block otherwise unremarkable intervals, no ST-T changes. ) and Plain X-Ray (Chest: Left basilar atelectasis) Radiology Impression Discussion of test interpretation with radiology: I have reviewed the radiologist's reading. Critical Care Time Critical Care Time Critical Care Time: Yes Total Critical Care Time: 45 Attestation: I spent 45 minutes providing critical care service to the patient, this including time spent at the bedside to evaluate the patient, reassess the patient, monitoring vital signs, review labs, and radiographic studies, counseling the patient/family, discussing the case with consultants, disposition the patient. Discharge Plan Discharge Clinical Impression: AF (paroxysmal atrial fibrillation), Atrial tachycardia Patient Disposition: Admitted As Inpatient
[2023-07-06] MEDS: dilTIAZem HCL 50 MG/10 ML VIAL 20 MG IVPUSH ×2 (16:35→19:51)
[2023-07-06] MEDS: 0.9 % Sodium Chloride 1,000 ML 500 ML IV (16:40)
[2023-07-06 16:48] LABS: MANUAL DIFF FLAG NO
[2023-07-06 16:53] LABS: INTERNATIONAL NORM RATIO 1.2 (0.9-1.1); Prothrombin Time 14.1 SEC (11.1-13.3)
[2023-07-06 17:00] LABS: Basophils Absolute Auto 0.1 X10*3/uL (0.0-0.2); Basophils Percent Auto 0.8 % (0-2); Eosinophils Absolute Auto 0.2 X10*3/uL (0.0-0.4); Eosinophils Percent Auto 2.2 % (0-4); Hematocrit 40.1 % (37.0-47.0); Hemoglobin 13.3 g/dl (12.0-16.0); Imm Gran Abs Auto 0.02 X10*3/uL (0.00-0.03); Imm Gran Pct Auto 0.3 % (0.0-0.4); Lymphocytes Percent Auto 25.2 % (20-40); Mean Corpuscular HGB Conc 33.2 g/dl (31.0-35.0); Mean Corpuscular Hemoglobin 32.3 pg (27.0-33.0); Mean Corpuscular Volume 97.3 fL (80.0-98.0); Mean Platelet Volume 8.9 fL (9.4-12.3); Monocytes Absolute Auto 0.8 X10*3/uL (0.1-1.2); Monocytes Percent Auto 10.1 % (2-11); Neutrophils Absolute Auto 4.8 x10*3/uL (2.0-8.3); Neutrophils Percent Auto 61.4 % (45-73); Platelet Count 219 X10*3/uL (160-400); Red Blood Count 4.12 X10*6/uL (4.20-5.50); Red Cell Distribution Width 11.9 % (11.0-16.0); White Blood Count 7.8 X10*3/uL (4.8-10.8)
[2023-07-06 17:02] LABS: Alanine Aminotransferase 20 U/L (0-31); Albumin Level 4.3 g/dL (3.5-5.0); Alkaline Phosphatase 77 U/L (39-117); Anion Gap 12 (12-20); Aspartate Amino Transferase 23 U/L (5-31); Bilirubin Direct 0.2 mg/dL (0.0-0.5); Bilirubin Total 0.6 mg/dL (0.0-1.0); Blood Urea Nitrogen 49 mg/dL (9-16); Calcium 9.4 mg/dL (8.4-10.2); Carbon Dioxide 22 mmol/L (22-29); Chloride 110 mmol/L (96-108); Estimated Glomerular Filt Rate 29; Glucose Random 124 mg/dL (60-115); Magnesium 2.6 mg/dL (1.6-2.6); Potassium 4.8 mmol/L (3.3-5.1); Sodium 139 mmol/L (135-145); Total Protein 7.4 g/dL (6.5-8.0)
--- NOTE | 2023-07-06 17:03 | ECG_ITS ---
Test Reason : REPEAT EKG Blood Pressure : / mmHG Vent. Rate : 069 BPM Atrial Rate : 069 BPM P-R Int : 222 ms QRS Dur : 078 ms QT Int : 388 ms P-R-T Axes : 043 021 -04 degrees QTc Int : 415 ms Sinus rhythm with 1st degree A-V block Abnormal ECG When compared with ECG of 06-JUL-2023 16:01, TX interval has increased Vent. rate has decreased BY 71 BPM Nonspecific T wave abnormality no longer evident in Lateral leads Referred By: Ashanti Foreman Electronically Signed By:LORE FISCHER MD
--- NOTE | 2023-07-06 17:08 | PC.NURSE ---
Pharmacy called for Diltiazem 60mg
[2023-07-06 17:09] LABS: Troponin-I High Sensitivity 7.9 ng/L (<3.5-17.0)
--- NOTE | 2023-07-06 17:30 | PC.NURSE ---
ok thanks i just called reprt for gail but rn is in a room and will call me back
--- NOTE | 2023-07-06 18:13 | PC.NURSE ---
called pharmacy to follow up as the cardizem was requested earlier by wilmer bui at approx [phone]- pharm states that they are about to bring down
[2023-07-06] MEDS: dilTIAZem HCL 60 MG TABLET PO (18:34)
--- NOTE | 2023-07-06 19:06 | PC.NURSE ---
gave 500 cc not 1000cc as told to pause by md guzman and hold for a total of 500cc
--- NOTE | 2023-07-06 19:21 | ECG_ITS ---
Test Reason : AFIB Blood Pressure : / mmHG Vent. Rate : 136 BPM Atrial Rate : 136 BPM P-R Int : 228 ms QRS Dur : 076 ms QT Int : 290 ms P-R-T Axes : 000 035 232 degrees QTc Int : 436 ms Supraventricular tachycardia Nonspecific ST and T wave abnormality Abnormal ECG When compared with ECG of 06-JUL-2023 17:03, Vent. rate has increased BY [address] no longer elevated in Lateral leads Nonspecific T wave abnormality now evident in Lateral leads Referred By: Layton Newton Electronically Signed By:LORE FISCHER MD
--- NOTE | 2023-07-06 19:49 | MHC.EDTECH ---
This pct assumed care of pt at 1945 ,vitals taken and Pt belongings list done ,Patient daughter at bedside .
[2023-07-06 20:09] LABS: Free T4 (Free Thyroxine) 0.97 ng/dL (0.71-1.85); Thyroid Stimulating Hormone 3.92 uIU/mL (0.32-4.0)
--- NOTE | 2023-07-06 20:15 | PC.NURSE ---
HR back down to 69 normal sinus , doreen Ashanti bran at bedside HOLD diltiazem gtt at this time
--- NOTE | 2023-07-06 20:26 | PM.IMHP ---
History of Present Illness Date of Service: 07/06/23 Attending physician on admission: [facility] Chief Complaint: afib rvr 78-year-old female with history paroxysmal atrial fibrillation anticoagulated with Xarelto history of failed cardioversion x9 and 3 cardio ablation, heart failure preserved ejection fraction, pulmonary hypertension, coronary artery disease, cardiomyopathy, hypertension who presents to the ED earlier today from PCP office where she was found have elevated heart rate of 130. On arrival to the ED, patient had heart rate of 140, vital signs otherwise stable. She denies any symptoms including lightheadedness, syncope, palpitations, shortness of breath, chest pain. She follows with Dr. Brennan on an outpatient basis and has been advised that she needs AV estiven ablation with pacing therapy but this has not yet been scheduled. In the ED, hematology studies unremarkable. Creatinine 1.69, elevated from baseline of 1.23, BUN 49. Electrolyte levels normal. TSH 3.92. Urine is cloudy in appearance but UA remains pending at this time. Patient denies any urinary symptoms. Denies any recent illness. Initially the ED, patient was given 20 mg IV push diltiazem and converted into sinus rhythm with rate control. She was considered for discharge home and to follow up with Dr. Brennan tomorrow as scheduled. However, per ED report continued to fall back into afib with rvr noted on lead network engineer sustaining HR's up to 130 for over 20 minutes. She received another 60mg diltiazem PO and failed to convert. Cardizem drip was ordered but not started as patient did eventually convert to narrow complex tachycardia without clear rhythm per ED provider. Had several EKG's performed showing SVT, rate 140 and sinus tach, rate 136. However, given concerns over observed recurrent afib rvr on tele monitor per ed provider and patient history, pt to be admitted for further monitoring and cardiology consult. Review of Systems Review of Systems: General: No fevers, malaise, unintentional weight loss HEENT: No blurred vision, diplopia. No sore throat, nasal congestion, rhinorrhea, sinus pain, ear pain Cardiovascular: No chest pain, palpitations, or leg edema Respiratory: No shortness of breath, wheezing, cough GI: No abdominal pain, nausea, vomiting, diarrhea, constipation, melena, hematochezia : No dysuria, hematuria, increased urinary frequency, decreased urinary output MSK: No myalgia, back pain Neuro: No headaches, weakness, paresthesias Skin: No rashes or lesions [facility] Medical History Preoperative cardiovascular examination NSTEMI (non-ST elevated myocardial infarction) Atrial fibrillation with RVR Pulmonary hypertension Paroxysmal atrial fibrillation Chronic heart failure with preserved ejection fraction (HFpEF) Chronic heart failure with preserved ejection fraction (HFpEF) Cardiomyopathy Pulmonary hypertension Diastolic dysfunction History of cardiomyopathy HTN (hypertension) Paroxysmal atrial fibrillation History of cardioversion Family History Father Cancer Mother Stroke Brother Atrial fibrillation Sister Cardiovascular disease Atrial fibrillation Surgical History S/P cardiac catheterization Hx of total hip arthroplasty Hx of cardiac cath Hx of hand surgery History of back surgery Household Members: None Housing: House Do you presently have visiting nurse or other home services: No Unable to assess alcohol history related to: Unknown Alcohol intake: former Patient Tobacco Use Status: Never used Tobacco Smoked in Last 30 Days: No Second Hand Smoke Exposure: No Use of substances other than those prescribed or required for medical reasons: No Currently Displaying Signs/Symptoms of Drug Intoxication Withdrawal: No Advance Directives: Yes Advance Directives on File: Yes Advance Directives Date on File: 12/18/22 Do you have thoughts of harming others: None Do you have a plan to hurt others: No Plan Nutrition Risks: No Nutritional Risk Patient : No service: No Current occupational status: retired [employer] Allergies Allergy/AdvReac Type Severity Reaction Status Date / Time aspirin [ASPIRIN] Allergy Unknown RASH Verified 04/06/23 10:34 Sulfa (Sulfonamide Allergy Unknown RASH Verified 04/06/23 10:34 Antibiotics) [SULFA (SULFONAMIDE ANTIBIOTICS)] flecainide AdvReac Intermediate Dizziness Verified 04/06/23 10:34 amiodarone AdvReac Mild Dizziness Verified 04/06/23 10:34 adhesives AdvReac Unknown Uncoded 04/06/23 10:34 Active Medications: Current Medications Acetaminophen (Acetaminophen 325 Mg Tablet) 650 mg PO Q6H PRN PRN Reason: Pain, Mild (Pain Scale 1-3) Docusate Sodium (Docusate Sodium 100 Mg Capsule) 100 mg PO DAILY PRN PRN Reason: Constipation Diltiazem HCl 125 mg/ Sodium (Chloride) 125 mls @ 0 mls/hr IVCONT .Q0M [facility]; Protocol Ondansetron HCl (Ondansetron Hcl 4 Mg/2 Ml Vial) 4 mg IVPUSH Q8H PRN PRN Reason: Nausea and Vomiting Sodium Chloride (0.9 % Sodium Chloride Flush 3 Ml Syringe) 3 ml IVFLUSH QSHIFT [facility] Home Medications Medication Instructions Recorded Confirmed Last Taken Type montelukast 10 mg tablet 10 mg PO BEDTIME 05/16/20 07/06/23 07/05/23 History fexofenadine 180 mg tablet 180 mg PO DAILY 06/21/21 07/06/23 07/06/23 History (Shea Allergy) coenzyme Q10 100 mg tablet 100 mg PO DAILY 07/28/21 07/06/23 07/06/23 History magnesium 250 mg tablet 250 mg PO BEDTIME 07/28/21 07/06/23 07/05/23 History multivitamin 1 tab PO DAILY 07/28/21 07/06/23 07/06/23 History vitamin E (dl, acetate) 180 mg 180 mg PO DAILY 07/28/22 07/06/23 07/06/23 History (400 unit) capsule ascorbic acid (vitamin C) 500 mg 1,000 mg PO DAILY 09/26/22 07/06/23 07/06/23 History tablet furosemide 40 mg tablet 40 mg PO DAILY 09/26/22 07/06/23 07/06/23 History omeprazole 40 mg capsule,delayed 40 mg PO BEDTIME 09/26/22 07/06/23 07/05/23 History release turmeric 400 mg capsule 400 mg PO DAILY@1200 11/03/22 07/06/23 07/05/23 History cholecalciferol (vitamin D3) 50 50 mcg PO DAILY 12/18/22 07/06/23 07/06/23 History mcg (2,000 unit) capsule gabapentin 300 mg capsule 600 mg PO BEDTIME 04/06/23 07/06/23 07/05/23 History meloxicam 15 mg tablet 15 mg PO DAILY 04/06/23 07/06/23 07/06/23 History spironolactone 25 mg tablet 12.5 mg PO DAILY 04/06/23 07/06/23 07/06/23 History carvedilol 12.5 mg tablet (Coreg) 12.5 mg PO BIDWM 07/06/23 07/06/23 07/06/23 History lactobacillus combination no.4 3 3,000 mmu cells PO DAILY 07/06/23 07/06/23 07/06/23 History billion cell capsule (Probiotic) Physical Exam Vital Signs and Narrative: Vital Signs: Last Vital Signs Temp 98.1 F 07/06/23 19:42 Pulse 69 07/06/23 20:14 Resp 14 07/06/23 20:14 BP 143/79 H 07/06/23 20:14 Pulse Ox 95 07/06/23 20:14 O2 Del Method Room Air 07/06/23 20:14 BMI result Body Mass Index 31.1 Constitutional - Awake and Alert, No apparent distress Eyes - PERRLA, EOMI Cardiovascular - S1S2, RRR, No edema Respiratory - Normal lung expansion, Normal respiratory effort, No respiratory distress, CTA bilaterally Gastrointestinal - NT / ND; +BS; No rebound or guarding Extremities - no calf tenderness bilaterally, no swelling Skin - Warm/Dry Neurological - Alert & oriented x3 Psychological - Appropriate affect Results Labs 07/07/23 07:19 07/07/23 07:19 Labs: Laboratory Results - last 24 hr 07/06/23 16:43 MCV 97.3 MCH 32.3 MCHC 33.2 RDW 11.9 Plt Count 219 MPV 8.9 L Immature Gran % (Auto) 0.3 Neut % (Auto) 61.4 Lymph % (Auto) 25.2 [place] % (Auto) 10.1 Eos % (Auto) 2.2 Baso % (Auto) 0.8 Lymph # (Auto) 2.0 [place] # (Auto) 0.8 Eos # (Auto) 0.2 Baso # (Auto) 0.1 Abs Immat Gran (auto) 0.02 Absolute Neuts (auto) 4.8 Absolute Nucleated RBC 0.000 Nucleated RBC % (auto) 0.0 PT 14.1 H INR 1.2 H Anion Gap 12 Estim Creat Clear Calc 29.0 Estimated GFR 29 Random Glucose 124 H Calcium 9.4 D Magnesium 2.6 Total Bilirubin 0.6 Direct Bilirubin 0.2 AST 23 ALT 20 Alkaline Phosphatase 77 Total Protein 7.4 Albumin 4.3 TSH 3.92 Free T4 0.97 Imaging Radiologist's Impressions: Impressions Chest X-Ray 07/06/23 16:54 IMPRESSION: Left basilar atelectasis.. Assessment and Plan (1) AF (paroxysmal atrial fibrillation): Status: Acute (2) UTI (urinary tract infection): Status: Acute (3) JUAN M (acute kidney injury): Status: Acute (4) SVT (supraventricular tachycardia): Status: Acute Plan 78-year-old female with history paroxysmal atrial fibrillation anticoagulated with Xarelto history of failed cardioversion x9 and 3 cardio ablation, heart failure preserved ejection fraction, pulmonary hypertension, coronary artery disease, cardiomyopathy, hypertension to be admitted for recurrent atrial fibrillation vs with RVR vs SVT and UTI with JUAN M #Paroxysmal atrial fibrillation- rate now controlled -h/o failed cardioversion x9, cardiac ablation x3. Needs -In ED, noted to convert into afib with rvr on tele monitor per ED staff, rates 130-140 multiple times despite tx with IV diltiazem. NSR, rates 60-70 on my exam -EKG's report SVT and sinus tach, asymptomatic -Hold on additional IV rate control. Resume PO rate control -continue xarelto for AC -Cardiology consult -Defer echo to cardiology -Monitor on telemetry #Acute kidney injury- likely prerenal -creat 1.69, baseline 1.23. BUN 49 -Received 1L IVF in ED -avoid nephrotoxins -Follow BMP -Consider nephrology consult if needed #Acute UTI -UA with 2+ leuks, negative nitrites, neg blood, +urinary sediment, 4+ bacteria -IV ceftriaxone (initiated 07/06) -Follow cultures #HFpEF -euvolemic appearing on exam -continue spironolactone, jardiance, lasix #CAD/cardiomyopathy -no chest pain -continue xarelto, bb, statin #HTN -bp reasonably controlled -continue home meds DVT prophylaxis- on xarelto Full code Pt requires inpt stay at least 2 midnights for mangement of JUAN M with UTI requiring IV abx, monitoring of renal function/lytes, and further monitoring given afib with rvr noted in ED on tele monitor Quality Stroke Does the patient have a stroke diagnosis?: No VTE Prior VTE?: No VTE Risk Level:: Medical - moderate - high VTE Device Contraindication: Treatment Not Indicated VTE Drug Contraindication: N/A - Med Ordered
--- NOTE | 2023-07-06 20:32 | MHC.EDTECH ---
Patient urine sample collected and sent to lab .
[2023-07-06 20:42] LABS: Appearance Urine Cloudy; Color Urine Yellow; Glucose Urine UA 500 mg/dL (Negative); Leukocyte Esterase Urine Moderate (2+) (Negative); Nitrite Urine Negative (Negative); UMIC TRIGGER UACC YES; Urine Blood Negative (Negative); Urine Ketones Negative (Negative); Urine Protein Negative (Neg-Trace)
[2023-07-06 20:49] LABS: Bacteria Urine 4+ (None Seen); UACC Culture Trigger YES; WBC Urine 21-50 /HPF (0-5)
--- NOTE | 2023-07-06 21:51 | PHA.MEDREC ---
Pharmacy Consult ? Medication Reconciliation Pharmacy has completed the medication reconciliation. PT had a list of her home medications and med rec was done from list and claim history.
[2023-07-06] MEDS: cefTRIAXone sodium 1 GM in 0.9 % Sodium Chloride 50 ML IV (22:26)
--- NOTE | 2023-07-06 23:52 | PC.NURSE ---
pt restign positioned on back lights dimmed to promote rest. HR maintaining @ 70 bpm
[2023-07-07] VITALS (7 sets, daily range): BP systolic 116–149; BP diastolic 65–82; PULSE 70–105; RESP 12–18; TEMP 36–36.7; O2SAT 93–97
--- NOTE | 2023-07-07 01:00 | PC.NURSE ---
report called to maria del carmen bui. pt ambulatory to restroom prior to transfer to room
[2023-07-07] MEDS: 0.9 % Sodium Chloride Flush 3 ML SYRINGE IVFLUSH ×4 (01:20→21:22)
[2023-07-07] MEDS: dilTIAZem HCL 125 MG in 0.9 % Sodium Chloride 100 ML 10 MG IVCONT (04:34)
[2023-07-07 07:44] LABS: MANUAL DIFF FLAG NO
[2023-07-07 07:45] LABS: Basophils Absolute Auto 0.1 X10*3/uL (0.0-0.2); Basophils Percent Auto 0.7 % (0-2); Eosinophils Absolute Auto 0.2 X10*3/uL (0.0-0.4); Eosinophils Percent Auto 2.8 % (0-4); Hematocrit 40.8 % (37.0-47.0); Hemoglobin 13.8 g/dl (12.0-16.0); Imm Gran Abs Auto 0.03 X10*3/uL (0.00-0.03); Imm Gran Pct Auto 0.4 % (0.0-0.4); Lymphocytes Absolute Auto 1.4 X10*3/uL (1.2-4.9); Lymphocytes Percent Auto 19.9 % (20-40); Mean Corpuscular HGB Conc 33.8 g/dl (31.0-35.0); Mean Corpuscular Hemoglobin 32.5 pg (27.0-33.0); Mean Corpuscular Volume 96.2 fL (80.0-98.0); Monocytes Absolute Auto 0.7 X10*3/uL (0.1-1.2); Monocytes Percent Auto 10.1 % (2-11); Neutrophils Absolute Auto 4.8 x10*3/uL (2.0-8.3); Neutrophils Percent Auto 66.1 % (45-73); Platelet Count 211 X10*3/uL (160-400); Red Blood Count 4.24 X10*6/uL (4.20-5.50); Red Cell Distribution Width 11.8 % (11.0-16.0); White Blood Count 7.2 X10*3/uL (4.8-10.8)
[2023-07-07 08:08] LABS: Anion Gap 11 (12-20); Blood Urea Nitrogen 35 mg/dL (9-16); Calcium 9.3 mg/dL (8.4-10.2); Carbon Dioxide 21 mmol/L (22-29); Chloride 111 mmol/L (96-108); Creatinine Clr Calc Pharmacy 43.8; Estimated Glomerular Filt Rate 47; Glucose Random 111 mg/dL (60-115); Potassium 4.2 mmol/L (3.3-5.1); Sodium 139 mmol/L (135-145)
[2023-07-07] MEDS: Ascorbic Acid 500 MG TABLET 1000 MG PO (08:14)
[2023-07-07] MEDS: Atorvastatin Calcium 40 MG TABLET PO (08:14)
[2023-07-07] MEDS: Multivitamin TABLET 1 TAB PO (08:14)
[2023-07-07] MEDS: Spironolactone 25 MG TABLET 12.5 MG PO (08:14)
[2023-07-07] MEDS: Furosemide 40 MG TABLET PO (08:14)
[2023-07-07] MEDS: Cholecalciferol (Vitamin D3) 25 MCG TABLET 50 MCG PO (08:14)
[2023-07-07] MEDS: Loratadine 10 MG TABLET PO (08:14)
[2023-07-07] MEDS: carvediloL 12.5 MG TABLET PO ×2 (08:14→17:27)
[2023-07-07] MEDS: dilTIAZem HCL CD 120 MG CAP.ER.DEG PO (08:14)
[2023-07-07] MEDS: Vitamin E (Dl,Tocopheryl Acet) 180 MG (400 UNIT) CAPSULE PO (08:14)
[2023-07-07] MEDS: Empagliflozin 10 MG TABLET PO (08:14)
--- NOTE | 2023-07-07 08:39 | MHC.CM.PN ---
IMM 07/07/23 Pt lives alone, she does not have any home health services, she is independent with all ADLs, drove herself to her PCP appt. here yesterday and ended up in hosp. She used [facility] 5 months ago when she had surgery on her shoulder, they are her choice if services are needed upon DC. HCP in place, first person listed is , he , both of her daughters are listed. She will have a ride home from one of her daughters. CM will follow and assist as needed with DC plan.
--- NOTE | 2023-07-07 08:42 | P.PNIM_ITS ---
Subjective Subjective Date of Service: 07/07/23 Interval History: Seen in follow up for: Afib with RVR, JUAN M, UTI Interval history: No complaints. Denies worsening sob, palpitations, lightheadedness, cp. Review of Systems Review of Systems: Yes all other systems are reviewed and are negative Physical Exam 2 Vital Signs: Vital Signs: Last Vital Signs Temp 97.4 F 07/07/23 07:28 Pulse 71 07/07/23 07:28 Resp 18 07/07/23 07:28 BP 131/76 07/07/23 07:28 Pulse Ox 93 07/07/23 07:28 O2 Del Method Room Air 07/07/23 07:28 BMI result Body Mass Index 31.1 Constitutional - Awake and Alert, No apparent distress Eyes - PERRLA, EOMI Cardiovascular - S1S2, RRR, No edema Respiratory - Normal lung expansion, Normal respiratory effort, No respiratory distress, CTA bilaterally Gastrointestinal - NT / ND; +BS; No rebound or guarding Extremities - no calf tenderness bilaterally, no swelling Skin - Warm/Dry Neurological - Alert & oriented x3 Psychological - Appropriate affect Objective Data Active Medications Acetaminophen (Acetaminophen 325 Mg Tablet) 650 mg PO Q6H PRN PRN Reason: Pain, Mild (Pain Scale 1-3) Albuterol/Ipratropium (Albuterol/Iprat 2.5/0.5mg 3 Ml Ampul.Neb) 3 ml INHALE Q4H PRN PRN Reason: for wheezing Ascorbic Acid (Ascorbic Acid 500 Mg Tablet) 1,000 mg PO DAILY [facility] Last Admin: 07/07/23 08:14 Dose: 1,000 mg Documented By: JUAN PABLO Atorvastatin Calcium (Atorvastatin Calcium 40 Mg Tablet) 40 mg PO DAILY [facility] Last Admin: 07/07/23 08:14 Dose: 40 mg Documented By: JUAN PABLO Carvedilol (Carvedilol 12.5 Mg Tablet) 12.5 mg PO BIDWM [facility]; Protocol Last Admin: 07/07/23 08:14 Dose: 12.5 mg Documented By: JUAN PABLO Diltiazem HCl (Diltiazem Hcl Cd 120 Mg Cap.Er.Deg) 120 mg PO DAILY [facility]; Protocol Last Admin: 07/07/23 08:14 Dose: 120 mg Documented By: JUAN PABLO Docusate Sodium (Docusate Sodium 100 Mg Capsule) 100 mg PO DAILY PRN PRN Reason: Constipation Empagliflozin (Empagliflozin 10 Mg Tablet) 10 mg PO DAILY [facility] Last Admin: 07/07/23 08:14 Dose: 10 mg Documented By: JUAN PABLO Furosemide (Furosemide 40 Mg Tablet) 40 mg PO DAILY [facility]; Protocol Last Admin: 07/07/23 08:14 Dose: 40 mg Documented By: JUAN PABLO Gabapentin (Gabapentin 300 Mg Capsule) 600 mg PO BEDTIME [facility] Diltiazem HCl 125 mg/ Sodium (Chloride) 125 mls @ 0 mls/hr IVCONT .Q0M [facility]; Protocol Last Titration: 07/07/23 05:30 Dose: 15 mg/hr, 15 mls/hr Documented By: YEHUDA Ceftriaxone Sodium 1 gm/ (Sodium Chloride) 50 mls @ 100 mls/hr IV Q24H [facility] Last Infusion: 07/06/23 23:00 Dose: Infused Documented By: ATIF Loratadine (Loratadine 10 Mg Tablet) 10 mg PO DAILY [facility] Last Admin: 07/07/23 08:14 Dose: 10 mg Documented By: JUAN PABLO Montelukast Sodium (Montelukast Sodium 10 Mg Tablet) 10 mg PO BEDTIME [facility] Multivitamins/Vitamin C (Multivitamin Tablet) 1 tab PO DAILY [facility] Last Admin: 07/07/23 08:14 Dose: 1 tab Documented By: JUAN PABLO Omeprazole (Omeprazole 40 Mg Capsule.Dr) 40 mg PO BEDTIME [facility] Ondansetron HCl (Ondansetron Hcl 4 Mg/2 Ml Vial) 4 mg IVPUSH Q8H PRN PRN Reason: Nausea and Vomiting Rivaroxaban (Rivaroxaban 15 Mg Tablet) 15 mg PO DAILY@1700 [facility] Sodium Chloride (0.9 % Sodium Chloride Flush 3 Ml Syringe) 3 ml IVFLUSH QSHIFT [facility] Last Admin: 07/07/23 08:15 Dose: 3 ml Documented By: JUAN PABLO Spironolactone (Spironolactone 25 Mg Tablet) 12.5 mg PO DAILY [facility]; Protocol Last Admin: 07/07/23 08:14 Dose: 12.5 mg Documented By: JUAN PABLO Vitamin D (Cholecalciferol (Vitamin D3) 25 Mcg Tablet) 50 mcg PO DAILY [facility] Last Admin: 07/07/23 08:14 Dose: 50 mcg Documented By: JUANP ABLO Vitamin E (Vitamin E (Dl,Tocopheryl Acet) 180 Mg (400 Unit) Capsule) 180 mg PO DAILY [facility] Last Admin: 07/07/23 08:14 Dose: 180 mg Documented By: JUAN PABLO Labs 07/07/23 07:19 07/07/23 07:19 Labs: Laboratory Results - last 24 hr 07/06/23 07/06/23 07/07/23 16:43 20:32 07:19 MCV 97.3 96.2 MCH 32.3 32.5 MCHC 33.2 33.8 RDW 11.9 11.8 Plt Count 219 211 MPV 8.9 L 9.0 L Immature Gran % (Auto) 0.3 0.4 Neut % (Auto) 61.4 66.1 Lymph % (Auto) 25.2 19.9 L [place] % (Auto) 10.1 10.1 Eos % (Auto) 2.2 2.8 Baso % (Auto) 0.8 0.7 Lymph # (Auto) 2.0 1.4 [place] # (Auto) 0.8 0.7 Eos # (Auto) 0.2 0.2 Baso # (Auto) 0.1 0.1 Abs Immat Gran (auto) 0.02 0.03 Absolute Neuts (auto) 4.8 4.8 Absolute Nucleated RBC 0.000 0.000 Nucleated RBC % (auto) 0.0 0.0 PT 14.1 H INR 1.2 H Anion Gap 12 11 L Estim Creat Clear Calc 29.0 43.8 Estimated GFR 29 47 Random Glucose 124 H 111 Calcium 9.4 D 9.3 Magnesium 2.6 Total Bilirubin 0.6 Direct Bilirubin 0.2 AST 23 ALT 20 Alkaline Phosphatase 77 Total Protein 7.4 Albumin 4.3 TSH 3.92 Free T4 0.97 Urine Color Yellow Urine Appearance Cloudy Urine pH 5.0 Ur Specific [place] 1.020 Urine Protein Negative Urine Glucose (UA) 500 H Urine Ketones Negative Urine Blood Negative Urine Nitrite Negative Ur Leukocyte Esterase Moderate (2+) H Urine RBC 3-5 H Urine WBC 21-50 H Ur Squamous Epith Cells 11-20 Urine Bacteria 4+ Hyaline Casts 6-10 Assessment and Plan (1) Atrial tachycardia: Status: Acute (2) AF (paroxysmal atrial fibrillation): Status: Acute (3) JUAN M (acute kidney injury): Status: Acute (4) UTI (urinary tract infection): Status: Acute Plan 78-year-old female with history paroxysmal atrial fibrillation anticoagulated with Xarelto history of failed cardioversion x9 and 3 cardio ablation, heart failure preserved ejection fraction, pulmonary hypertension, coronary artery disease, cardiomyopathy, hypertension admitted for recurrent atrial fibrillation vs with RVR vs SVT and UTI with JUAN M. Renal function appears back to baseline. Continues to convert in and out of afib with rvr. Required cardizem drip overnight, currently on hold. #Paroxysmal atrial fibrillation- rate now controlled -h/o failed cardioversion x9, cardiac ablation x3. Per [facility] EP, may need AV estiven ablation with pacemaker placement -continue xarelto for AC -Cardizem drip overnight, currently on hold. Initiate dig 0.25mg IV now, then q6h x2. Resume cardizem is prn per protocol -Continue PO rate control -Appreciate cardiology input -ANGELA cardioversion am per cardiology. Cardiac diet now, NPO after midnight -No transfer to [facility] for pacemaker at this time per cardiology -Monitor on telemetry #Acute kidney injury- resolved with IVF -creat 1.69 --> 1.12 #Acute UTI -asymptomatic, will treat given rvr -IV ceftriaxone (initiated 07/06, D2) -Follow cultures #HFpEF -euvolemic appearing on exam -continue spironolactone, jardiance, lasix #CAD/cardiomyopathy -no chest pain -continue xarelto, bb, statin #HTN -bp reasonably controlled -continue home meds DVT prophylaxis- on xarelto Full code Discussed with Dr. Birch Pt requires ongoing inpt stay for ongoing management afib with rvr requiring IV digoxin and cardizem per protocol and close cardiac monitoring, cardioversion, and expert consultation Quality Stroke Does the patient have a stroke diagnosis?: No VTE Prior VTE?: No VTE Risk Level:: Medical - moderate - high VTE Device Contraindication: Treatment Not Indicated VTE Drug Contraindication: N/A - Med Ordered
[2023-07-07] MEDS: Digoxin 0.5 MG/2 ML AMPUL 0.25 MG IVPUSH ×3 (12:43→18:11)
[2023-07-07] MEDS: Acetaminophen 325 MG TABLET 650 MG PO (14:28)
[2023-07-07] MEDS: Rivaroxaban 15 MG TABLET PO (17:27)
--- NOTE | 2023-07-07 17:54 | PM.CNCAR ---
History of Present Illness History of Present Illness Date of Service: 07/07/23 Requesting physician: Ashanti Foreman Consult reason: atrial fibrillation Chief complaint: afib rvr Narrative: I was consulted to see Marjorie in cardiology consultation today for recurrent atrial fibrillation. She is a 78-year-old patient long-term patient of mine with resistant and difficult to treat atrial fibrillation. She has had many years of atrial fibrillation the 1st time she had atrial fibrillation she developed heart failure syndrome with cardiomyopathy. Since then she has had multiple ablation says, x3, multiple different antiarrhythmic drug therapy with failure to maintain rhythm in the [place] [facility]. She had done well with last electrophysiology consultation [facility] in November at which time we decided to possibly pursue AV estiven ablation with pacemaker placement if she has recurrent atrial fibrillation. She has done well for the last 6 months with maintaining rhythm. Yesterday went to her primary care's office for regular follow-up and was noted to have elevated heart rate. EKG confirm presence of atrial tachycardia and subsequently overnight she converted to atrial fibrillation. Surprisingly compared to in the past she has not had any significant symptoms at current time. She denies any worsening shortness of breath, chest discomfort, palpitations as she has in the past. She is on dual rate control with Cardizem as well as Coreg as outpatient currently on full Cardizem drip at 50 mg an hour and remains with elevated rate. Denies any orthopnea, PND, palpitations, lightheadedness, syncope. She has been on oral anticoagulation therapy Review of Systems Constitutional: Constitutional: Reports no additional constitutional complaints Eyes: Eyes: Reports no additional eye complaints Cardiovascular: Cardiovascular: Reports no additional cardiovascular complaints Respiratory: Respiratory: Reports no additional respiratory complaints Gastrointestinal: Gastrointestinal: Reports no additional gastrointestinal complaints Genitourinary: Genitourinary: Reports no additional female genitourinary complaints Musculoskeletal: Musculoskeletal: Reports no additional musculoskeletal complaints Integumentary/Breasts: Skin/Breast: Reports system reviewed and no additional complaints, except as docu Neurologic: Reports system reviewed and no additional complaints, except as documented Psychiatric: Psychiatric: Reports no additional psychiatric complaints Endocrine: Endocrine: Reports no additional endocrine complaints Hematologic/Lymphatic: Hematologic/Lymphatic: Reports no additional hematologic/lymphatic complaints PMFSH Past Medical History Medical History Preoperative cardiovascular examination NSTEMI (non-ST elevated myocardial infarction) Atrial fibrillation with RVR Pulmonary hypertension Paroxysmal atrial fibrillation Chronic heart failure with preserved ejection fraction (HFpEF) Chronic heart failure with preserved ejection fraction (HFpEF) Cardiomyopathy Pulmonary hypertension Diastolic dysfunction History of cardiomyopathy HTN (hypertension) Paroxysmal atrial fibrillation History of cardioversion Family History Family History Father Cancer Mother Stroke Brother Atrial fibrillation Sister Cardiovascular disease Atrial fibrillation Surgical History Surgical History S/P cardiac catheterization Hx of total hip arthroplasty Hx of cardiac cath Hx of hand surgery History of back surgery Social History Social History Household Members: None Housing: House Do you presently have visiting nurse or other home services: No Unable to assess alcohol history related to: Unknown Alcohol intake: former Patient Tobacco Use Status: Never used Tobacco Smoked in Last 30 Days: No Second Hand Smoke Exposure: No Use of substances other than those prescribed or required for medical reasons: No Currently Displaying Signs/Symptoms of Drug Intoxication Withdrawal: No Advance Directives: Yes Advance Directives on File: Yes Advance Directives Date on File: 12/18/22 Do you have thoughts of harming others: None Do you have a plan to hurt others: No Plan Nutrition Risks: No Nutritional Risk Patient : No service: No Current occupational status: retired Meds Allergies Allergy/AdvReac Type Severity Reaction Status Date / Time aspirin [ASPIRIN] Allergy Unknown RASH Verified 04/06/23 10:34 Sulfa (Sulfonamide Allergy Unknown RASH Verified 04/06/23 10:34 Antibiotics) [SULFA (SULFONAMIDE ANTIBIOTICS)] flecainide AdvReac Intermediate Dizziness Verified 04/06/23 10:34 amiodarone AdvReac Mild Dizziness Verified 04/06/23 10:34 adhesives AdvReac Unknown Uncoded 04/06/23 10:34 Active Medications: Current Medications Acetaminophen (Acetaminophen 325 Mg Tablet) 650 mg PO Q6H PRN PRN Reason: Pain, Mild (Pain Scale 1-3) Last Admin: 07/07/23 14:28 Dose: 650 mg Albuterol/Ipratropium (Albuterol/Iprat 2.5/0.5mg 3 Ml Ampul.Neb) 3 ml INHALE Q4H PRN PRN Reason: for wheezing Ascorbic Acid (Ascorbic Acid 500 Mg Tablet) 1,000 mg PO DAILY [facility] Last Admin: 07/07/23 08:14 Dose: 1,000 mg Atorvastatin Calcium (Atorvastatin Calcium 40 Mg Tablet) 40 mg PO DAILY [facility] Last Admin: 07/07/23 08:14 Dose: 40 mg Carvedilol (Carvedilol 12.5 Mg Tablet) 12.5 mg PO BIDWM [facility]; Protocol Last Admin: 07/07/23 17:27 Dose: 12.5 mg Digoxin (Digoxin 0.5 Mg/2 Ml Ampul) 0.25 mg IVPUSH ONCE ONE Stop: 07/07/23 18:01 Diltiazem HCl (Diltiazem Hcl Cd 120 Mg Cap.Er.Deg) 120 mg PO DAILY [facility]; Protocol Last Admin: 07/07/23 08:14 Dose: 120 mg Docusate Sodium (Docusate Sodium 100 Mg Capsule) 100 mg PO DAILY PRN PRN Reason: Constipation Empagliflozin (Empagliflozin 10 Mg Tablet) 10 mg PO DAILY [facility] Last Admin: 07/07/23 08:14 Dose: 10 mg Furosemide (Furosemide 40 Mg Tablet) 40 mg PO DAILY [facility]; Protocol Last Admin: 07/07/23 08:14 Dose: 40 mg Gabapentin (Gabapentin 300 Mg Capsule) 600 mg PO BEDTIME [facility] Diltiazem HCl 125 mg/ Sodium (Chloride) 125 mls @ 0 mls/hr IVCONT .Q0M [facility]; Protocol Last Titration: 07/07/23 17:26 Dose: 10 mg/hr, 10 mls/hr Ceftriaxone Sodium 1 gm/ (Sodium Chloride) 50 mls @ 100 mls/hr IV Q24H [facility] Last Infusion: 07/06/23 23:00 Dose: Infused Loratadine (Loratadine 10 Mg Tablet) 10 mg PO DAILY [facility] Last Admin: 07/07/23 08:14 Dose: 10 mg Montelukast Sodium (Montelukast Sodium 10 Mg Tablet) 10 mg PO BEDTIME [facility] Multivitamins/Vitamin C (Multivitamin Tablet) 1 tab PO DAILY [facility] Last Admin: 07/07/23 08:14 Dose: 1 tab Omeprazole (Omeprazole 40 Mg Capsule.Dr) 40 mg PO BEDTIME [facility] Ondansetron HCl (Ondansetron Hcl 4 Mg/2 Ml Vial) 4 mg IVPUSH Q8H PRN PRN Reason: Nausea and Vomiting Rivaroxaban (Rivaroxaban 15 Mg Tablet) 15 mg PO DAILY@1700 [facility] Last Admin: 07/07/23 17:27 Dose: 15 mg Sodium Chloride (0.9 % Sodium Chloride Flush 3 Ml Syringe) [address] [facility] Last Admin: 07/07/23 17:27 Dose: 3 ml Spironolactone (Spironolactone 25 Mg Tablet) 12.5 mg PO DAILY [facility]; Protocol Last Admin: 07/07/23 08:14 Dose: 12.5 mg Vitamin D (Cholecalciferol (Vitamin D3) 25 Mcg Tablet) 50 mcg PO DAILY [facility] Last Admin: 07/07/23 08:14 Dose: 50 mcg Vitamin E (Vitamin E (Dl,Tocopheryl Acet) 180 Mg (400 Unit) Capsule) 180 mg PO DAILY [facility] Last Admin: 07/07/23 08:14 Dose: 180 mg Home Medications Medication Instructions Recorded Confirmed Last Taken Type montelukast 10 mg tablet 10 mg PO BEDTIME 05/16/20 07/06/23 07/05/23 History fexofenadine 180 mg tablet 180 mg PO DAILY 06/21/21 07/06/23 07/06/23 History (Shea Allergy) coenzyme Q10 100 mg tablet 100 mg PO DAILY 07/28/21 07/06/23 07/06/23 History magnesium 250 mg tablet 250 mg PO BEDTIME 07/28/21 07/06/23 07/05/23 History multivitamin 1 tab PO DAILY 07/28/21 07/06/23 07/06/23 History vitamin E (dl, acetate) 180 mg 180 mg PO DAILY 07/28/22 07/06/23 07/06/23 History (400 unit) capsule ascorbic acid (vitamin C) 500 mg 1,000 mg PO DAILY 09/26/22 07/06/23 07/06/23 History tablet furosemide 40 mg tablet 40 mg PO DAILY 09/26/22 07/06/23 07/06/23 History omeprazole 40 mg capsule,delayed 40 mg PO BEDTIME 09/26/22 07/06/23 07/05/23 History release turmeric 400 mg capsule 400 mg PO DAILY@1200 11/03/22 07/06/23 07/05/23 History cholecalciferol (vitamin D3) 50 50 mcg PO DAILY 12/18/22 07/06/23 07/06/23 History mcg (2,000 unit) capsule gabapentin 300 mg capsule 600 mg PO BEDTIME 04/06/23 07/06/23 07/05/23 History meloxicam 15 mg tablet 15 mg PO DAILY 04/06/23 07/06/23 07/06/23 History spironolactone 25 mg tablet 12.5 mg PO DAILY 04/06/23 07/06/23 07/06/23 History carvedilol 12.5 mg tablet (Coreg) 12.5 mg PO BIDWM 07/06/23 07/06/23 07/06/23 History lactobacillus combination no.4 3 3,000 mmu cells PO DAILY 07/06/23 07/06/23 07/06/23 History billion cell capsule (Probiotic) Physical Exam Vital Signs: Vital Signs: Last Vital Signs Temp 96.8 F 07/07/23 15:35 Pulse 105 H 07/07/23 15:35 Resp 14 07/07/23 15:35 BP 135/82 07/07/23 15:35 Pulse Ox 93 07/07/23 15:35 O2 Del Method Room Air 07/07/23 15:35 BMI result Body Mass Index 31.1 Const: General: cooperative, comfortable, no acute distress, alert and awake Nutritional Appearance: overweight Orientation/consciousness: patient oriented x3 Limitations: other limitations (In a stretcher) Neck: Neck: Yes trachea midline, Yes supple and Yes no JVD Chest: Chest palpation & inspection: abnormal inspection of the chest kyphotic and scoliotic Resp: Effort & Inspection: normal respiratory effort Auscultation: clear to auscultation bilaterally and diminished lung sounds Cardio: Jugular venous distension: no JVD Palpation: normal PMI Rate: tachycardic Rhythm: abnormal rhythm irregularly irregular Heart sounds: S1 normal heart sound present and S2 normal heart sound present GI: Auscultation: normal bowel sounds Skin: General skin exam: no rashes or lesions noted Neuro: General: patient oriented x3 and no focal motor deficits Extrem: General: Yes no clubbing, cyanosis or edema Psych: Appearance: grossly normal Objective Labs and Meds 07/07/23 07:19 07/07/23 07:19 Lab results: Laboratory Results - last 24 hr 07/06/23 07/06/23 07/07/23 16:43 20:32 07:19 WBC 7.2 RBC 4.24 Hgb 13.8 Hct 40.8 MCV 96.2 MCH 32.5 MCHC 33.8 RDW 11.8 Plt Count 211 MPV 9.0 L Immature Gran % (Auto) 0.4 Neut % (Auto) 66.1 Lymph % (Auto) 19.9 L [place] % (Auto) 10.1 Eos % (Auto) 2.8 Baso % (Auto) 0.7 Lymph # (Auto) 1.4 [place] # (Auto) 0.7 Eos # (Auto) 0.2 Baso # (Auto) 0.1 Abs Immat Gran (auto) 0.03 Absolute Neuts (auto) 4.8 Absolute Nucleated RBC 0.000 Nucleated RBC % (auto) 0.0 Sodium 139 Potassium 4.2 Chloride 111 H Carbon Dioxide 21 L Anion Gap 11 L BUN 35 H Creatinine 1.12 Estim Creat Clear Calc 43.8 Estimated GFR 47 Random Glucose 111 Calcium 9.3 TSH 3.92 Free T4 0.97 Urine Color Yellow Urine Appearance Cloudy Urine pH 5.0 Ur Specific [place] 1.020 Urine Protein Negative Urine Glucose (UA) 500 H Urine Ketones Negative Urine Blood Negative Urine Nitrite Negative Ur Leukocyte Esterase Moderate (2+) H Urine RBC 3-5 H Urine WBC 21-50 H Ur Squamous Epith Cells 11-20 Urine Bacteria 4+ Hyaline Casts 6-10 EKG shows yesterday atrial tachycardia with 2 is to 1 conduction Imaging Radiologist's impression: Impressions Chest X-Ray 07/06/23 16:54 IMPRESSION: Left basilar atelectasis.. Assessment and Plan (1) Persistent atrial fibrillation: Status: Acute Persistent and recurrent atrial fibrillation this elderly woman with no clear evidence of infiltrative disorder such as amyloidosis significant LVH with difficult control atrial fibrillation the past with multiple ablation is a multiple antiarrhythmic drug trial multiple cardioversions. She has had multiple EP consultation including at [facility] in [facility] and 1 of the options has been to pursue rate control approach with AV estiven ablation with permanent pacemaker placement. Surprising this time patient does not have significant awareness of her being in recurrent atrial fibrillation and no clear evidence of heart failure syndrome. I thing at this point time is reasonable to pursue rate control approach especially given her significant structural left atrial abnormality. This was discussed with her and not a long discussion with EPS Dr. Jennings at [facility]. Will pursue rate control with Cardizem, maximizing Coreg as well as digitalizing the patient. Once rate is adequately control will discharge home. If difficult control rate then will pursue inpatient transfer for AV estiven ablation and pacemaker placement. Continue full oral anticoagulation. (2) Chronic heart failure with preserved ejection fraction (HFpEF): Status: Acute Heart failure with preserved ejection fraction, clinically euvolemic and well compensated at this point in time. 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 Continue current diuretic regimen as well as Jardiance therapy. Continue low-dose spironolactone therapy. Will follow with you. Greater than 45 minutes was spent in managing her care. Procedures Date of Service Date of Service: 07/07/23
--- NOTE | 2023-07-07 18:13 | PC.NURSE ---
diltiazem titrated to 5 ml/hr ---hr sustained 70s
[2023-07-07] MEDS: cefTRIAXone sodium 1 GM in 0.9 % Sodium Chloride 50 ML IV (21:20)
[2023-07-07] MEDS: Montelukast Sodium 10 MG TABLET PO (21:21)
[2023-07-07] MEDS: Omeprazole 40 MG CAPSULE.DR PO (21:21)
[2023-07-07] MEDS: Gabapentin 300 MG CAPSULE 600 MG PO (21:21)
[2023-07-07] MEDS: dilTIAZem HCL 125 MG in 0.9 % Sodium Chloride 100 ML IVCONT (22:23)
[2023-07-08] VITALS: BP 138/66; PULSE 62; RESP 20; TEMP 36.1; O2SAT 95
[2023-07-08 03:14] VITALS: BP 110/62; PULSE 80; RESP 20; TEMP 36.1; O2SAT 93
[2023-07-08 07:35] VITALS: BP 119/75; PULSE 78; RESP 16; TEMP 36.7; O2SAT 95
[2023-07-08 07:47] LABS: Anion Gap 13 (12-20); Blood Urea Nitrogen 32 mg/dL (9-16); Calcium 9.3 mg/dL (8.4-10.2); Carbon Dioxide 21 mmol/L (22-29); Chloride 108 mmol/L (96-108); Creatinine Clr Calc Pharmacy 46.2; Estimated Glomerular Filt Rate 50; Glucose Random 117 mg/dL (60-115); Potassium 4.4 mmol/L (3.3-5.1); Sodium 138 mmol/L (135-145)
[2023-07-08] MEDS: 0.9 % Sodium Chloride Flush 3 ML SYRINGE IVFLUSH (09:15)
[2023-07-08 11:14] VITALS: BP 136/69; PULSE 85; RESP 18; TEMP 36.9; O2SAT 95
[2023-07-08] MEDS: Spironolactone 25 MG TABLET 12.5 MG PO (11:20)
[2023-07-08] MEDS: Ascorbic Acid 500 MG TABLET 1000 MG PO (11:20)
[2023-07-08] MEDS: Vitamin E (Dl,Tocopheryl Acet) 180 MG (400 UNIT) CAPSULE PO (11:20)
[2023-07-08] MEDS: Furosemide 40 MG TABLET PO (11:20)
[2023-07-08] MEDS: Atorvastatin Calcium 40 MG TABLET PO (11:20)
[2023-07-08] MEDS: Multivitamin TABLET 1 TAB PO (11:20)
[2023-07-08] MEDS: Loratadine 10 MG TABLET PO (11:21)
[2023-07-08] MEDS: Cholecalciferol (Vitamin D3) 25 MCG TABLET 50 MCG PO (11:21)
[2023-07-08] MEDS: carvediloL 25 MG TABLET PO (11:21)
[2023-07-08] MEDS: dilTIAZem HCL CD 120 MG CAP.ER.DEG PO (11:21)
[2023-07-08] MEDS: Empagliflozin 10 MG TABLET PO (11:21)
--- NOTE | 2023-07-08 12:50 | PM.PNCARD ---
Subjective Subjective Date of Service: 07/08/23 Principal diagnosis: Persistent atrial fibrillation. Interval history: Patient is currently off Cardizem drip and has not received oral Coreg. Heart rate was elevated. Patient denies any new symptoms. No orthopnea, PND, worsening shortness of breath. Review of Systems Constitutional: Reports no additional constitutional complaints Cardiovascular: Reports no additional cardiovascular complaints Respiratory: Reports no additional respiratory complaints Psychiatric: Reports no additional psychiatric complaints Physical Exam Vital Signs: Last Vital Signs Temp 98.5 F 07/08/23 11:14 Pulse 85 07/08/23 11:14 Resp 18 07/08/23 11:14 BP 136/69 07/08/23 11:14 Pulse Ox 95 07/08/23 11:14 O2 Del Method Room Air 07/08/23 11:14 BMI result Body Mass Index 31.1 Const General: cooperative, comfortable, no acute distress, alert and awake Nutritional Appearance: overweight Orientation/consciousness: patient oriented x3 Limitations: other limitations (In a stretcher) Neck Neck: Yes trachea midline, Yes supple and Yes no JVD Chest Chest palpation & inspection: abnormal inspection of the chest kyphotic and scoliotic Resp Effort & Inspection: normal respiratory effort Auscultation: clear to auscultation bilaterally and diminished lung sounds Cardio Jugular venous distension: no JVD Palpation: normal PMI Rate: tachycardic Rhythm: abnormal rhythm irregularly irregular Heart sounds: S1 normal heart sound present and S2 normal heart sound present GI Auscultation: normal bowel sounds Skin General skin exam: no rashes or lesions noted Neuro General: patient oriented x3 and no focal motor deficits Extrem General: Yes no clubbing, cyanosis or edema Psych Appearance: grossly normal Objective Labs and Meds 07/07/23 07:19 07/08/23 07:04 Lab results: Laboratory Results - last 24 hr 07/08/23 07:04 Hold Purple Top SEE NOTE Sodium 138 Potassium 4.4 Chloride 108 Carbon Dioxide 21 L Anion Gap 13 BUN 32 H Creatinine 1.06 Estim Creat Clear Calc 46.2 Estimated GFR 50 Random Glucose 117 H Calcium 9.3 Progress Note: A&P Assessment and plan (1) Persistent atrial fibrillation: Status: Acute Assessment and Plan: Persistent atrial fibrillation rapid ventricular response after not being on any IV Cardizem overnight. Start on carvedilol 25 mg b.i.d. and Cardizem CD 2 40 mg daily and add digoxin 0.25 mg daily to her regimen. Follow hemodynamics and full disclosure cardiac telemetry. Rate is adequately control can be discharged later today and/or tomorrow morning. Plan after discussing with electrophysiology and patient is to pursue rate control approach given her recurrent interventions the past and currently relative asymptomatic nature of her rapid atrial fibrillation. (2) Chronic heart failure with preserved ejection fraction (HFpEF): Status: Acute Assessment and Plan: No signs of overt heart failure. Continue her usual medications as before. Signs symptoms of heart failure were discussed. Will follow with you Time Spent With Patient Time: Total time managing care of this patient today ____ minutes. Progress Note: Quality Stroke Does the patient have a stroke diagnosis?: No Procedures Date of Service Date of Service: 07/08/23
[2023-07-08 15:44] VITALS: BP 109/77; PULSE 81; RESP 18; TEMP 36; O2SAT 94
--- NOTE | 2023-07-08 16:21 | PM.DS ---
DS: Providers Provider Date of Service: 07/08/23 Date of admission: 07/06/23 20:22 Primary care physician: Yair Huff MD Consults: 07/06/23 20:22 Consult to Cardiology Routine Consulting Provider: [facility] [place] Cardiovascular [facility] Reason for consultation: afib rvr/svt Has provider been notified: Yes DS: Diagnosis Discharge Diagnosis (1) Persistent atrial fibrillation: Status: Acute (2) Chronic heart failure with preserved ejection fraction (HFpEF): Status: Acute DS: Summary Hospital Course Hospital Course: HPI on admission by this author 07/06: 78-year-old female with history paroxysmal atrial fibrillation anticoagulated with Xarelto history of failed cardioversion x9 and 3 cardio ablation, heart failure preserved ejection fraction, pulmonary hypertension, coronary artery disease, cardiomyopathy, hypertension who presents to the ED earlier today from PCP office where she was found have elevated heart rate of 130. On arrival to the ED, patient had heart rate of 140, vital signs otherwise stable. She denies any symptoms including lightheadedness, syncope, palpitations, shortness of breath, chest pain. She follows with Dr. Brennan on an outpatient basis and has been advised that she needs AV estiven ablation with pacing therapy but this has not yet been scheduled. In the ED, hematology studies unremarkable. Creatinine 1.69, elevated from baseline of 1.23, BUN 49. Electrolyte levels normal. TSH 3.92. Urine is cloudy in appearance but UA remains pending at this time. Patient denies any urinary symptoms. Denies any recent illness. Initially the ED, patient was given 20 mg IV push diltiazem and converted into sinus rhythm with rate control. She was considered for discharge home and to follow up with Dr. Brennan tomorrow as scheduled. However, per ED report continued to fall back into afib with rvr noted on cardiac monitor technician sustaining HR's up to 130 for over 20 minutes. She received another 60mg diltiazem PO and failed to convert. Cardizem drip was ordered but not started as patient did eventually convert to narrow complex tachycardia without clear rhythm per ED provider. Had several EKG's performed showing SVT, rate 140 and sinus tach, rate 136. However, given concerns over observed recurrent afib rvr on tele monitor per ed provider and patient history, pt to be admitted for further monitoring and cardiology consult. Hospital course: Admitted to telemetry for management of AFib with RVR. Pt admitted on cardizem drip. Continued to convert in and out of afib with rvr, rates up to 140, with hemodynamics otherwise stable, no hypotension. She never developed symptoms during admission. She was followed by cardiology who reached out to [facility] EP where pt also follows who had previously recommended AV estiven ablation and pace maker placement. Recommendation was to pursue rate control at this time. She was started on digoxin 0.25mg then given 0.25mg x2 q6h. Coreg was increased to 25mg BID. Rate was better controlled and she was weaned from cardizem drip. She will be discharged on diltiazem 240mg XR, carvedilol 25mg BID, and digoxin 0.25mg daily. Continue xarelto for AC. Continue all other home medications. Urine culture was negative so antibiotics were stopped. She will follow up outpt with Dr. Brennan and [facility] EP and cardiology will reach out to set up holter monitor. Follow up wioth PCP as scheduled. Status at Discharge Functional status at discharge: independent ambulation Overall status at discharge: patient is progressing back to baseline Time Attestation Discharge coordination time: Greater than 30 minutes Quality: Safe Use of Opioids Does Pt have an Active Cancer Diagnosis on the Problem List?: No Quality: Stroke Does the patient have a stroke diagnosis?: No Physical Exam Vital Signs: Vital Signs: Last Vital Signs Temp 96.8 F 07/08/23 15:44 Pulse 81 07/08/23 15:44 Resp 18 07/08/23 15:44 BP 109/77 07/08/23 15:44 Pulse Ox 94 07/08/23 15:44 O2 Del Method Room Air 07/08/23 15:44 BMI result Body Mass Index 31.1 Constitutional - Awake and Alert, No apparent distress Eyes - PERRLA, EOMI Cardiovascular - S1S2, irregularly irregular, no tachycardia, No edema Respiratory - Normal lung expansion, Normal respiratory effort, No respiratory distress, CTA bilaterally Gastrointestinal - NT / ND; +BS; No rebound or guarding Extremities - no calf tenderness bilaterally, no swelling Skin - Warm/Dry Neurological - Alert & oriented x3 Psychological - Appropriate affect DS: Data Data Completed and Pending Completed studies during hospitalization [Text1]: Procedures Replacement of Left Hip Joint, Femoral Surface with Synthetic Substitute, Uncemented, Open Approach (12/18/22) Buddhist of Cardiac Rhythm, Single (09/10/22) Transfusion of Nonautologous Red Blood Cells into Peripheral Vein, Percutaneous Approach (12/18/22) Ultrasonography of Heart with Aorta, Transesophageal (07/27/21) Labs on day of discharge: Laboratory Results - last 24 hr 07/08/23 07:04 Hold Purple Top SEE NOTE Sodium 138 Potassium 4.4 Chloride 108 Carbon Dioxide 21 L Anion Gap 13 BUN 32 H Creatinine 1.06 Estim Creat Clear Calc 46.2 Estimated GFR 50 Random Glucose 117 H Calcium 9.3 Preliminary micro results at discharge 07/06/23 20:49 Urine Culture - Preliminary Urine clean catch - Urine mota top Culture in progress. 07/06/23 22:12 Blood Culture - Preliminary Blood - Venous No growth after 24 hours. 07/06/23 22:12 Blood Culture - Preliminary Blood - Venous No growth after 24 hours. Discharge Plan Discharge Anticipated Discharge Date/Time: 07/08/23 16:29 Patient Disposition: Home, Self-Care Discharge Diagnosis: Afib with RVR Referrals: Yair Huff MD [Primary Care Provider] - Franco Brennan MD [Physician] - Discharge Medications: New carvedilol 25 mg Tablet 25 mg PO BIDWM Qty: 60 1RF Protocol: Hold for SBP/HR < HOLD for SBP < : 90 HOLD for HR < : 60 diltiazem HCl [DILT-XR] 240 mg capsule,ext.rel 24h degradable 240 mg PO DAILY Qty: 60 1RF digoxin [Digox] 250 mcg (0.25 mg) tablet 250 mcg PO DAILY Qty: 60 1RF Continued ipratropium-albuterol 0.5 mg-3 mg(2.5 mg base)/3 mL solution for nebulization 3 ml inhalation Q4-6H PRN (Reason: for wheezing) Qty: 180 0RF Xarelto 20 mg tablet 20 mg PO DAILY@1700 Qty: 90 3RF atorvastatin 40 mg tablet 40 mg PO DAILY Qty: 90 3RF Jardiance 10 mg tablet 10 mg PO DAILY Qty: 30 5RF coenzyme Q10 100 mg Tablet 100 mg PO DAILY multivitamin Tablet 1 tab PO DAILY magnesium 250 mg Tablet 250 mg PO BEDTIME vitamin E (dl, acetate) 180 mg (400 unit) Capsule 180 mg PO DAILY ascorbic acid (vitamin C) 500 mg Tablet 1,000 mg PO DAILY omeprazole 40 mg Capsule,Delayed Release(Dr/Ec) 40 mg PO BEDTIME furosemide 40 mg Tablet 40 mg PO DAILY Probiotic 3 billion cell Capsule 3,000 mmu cells PO DAILY Rx Instructions: administer with a meal cholecalciferol (vitamin D3) 50 mcg (2,000 unit) Capsule 50 mcg PO DAILY montelukast 10 mg tablet 10 mg PO BEDTIME gabapentin 300 mg capsule 600 mg PO BEDTIME fexofenadine [Shea Allergy] 180 mg tablet 180 mg PO DAILY turmeric 400 mg capsule 400 mg PO DAILY@1200 meloxicam 15 mg tablet 15 mg PO DAILY spironolactone 25 mg tablet 12.5 mg PO DAILY Discontinued diltiazem HCl 120 mg capsule,extended release 24hr 120 mg PO DAILY Qty: 90 3RF carvedilol [Coreg] 12.5 mg tablet 12.5 mg PO BIDWM Rx Instructions: must administer with a meal/food Discharge Orders: Discharge Order (Routine); Ordered 07/08/23 Ordered By: Ashanti Foreman Diet: Advance to usual diet Activity on Discharge: As tolerated Stand Alone Forms: Patient Portal Discharge page Care Plan Goals: see below Health Concerns: AFib with RVR Plan of Treatment: Atrial fibrillation with rapid ventricular rate: -rate now controlled -increase carvedilol to 25 mg twice daily -increase diltiazem to 240mg XR -add digoxin 0.25 mg daily -continue Xarelto -Dr. Brennan to schedule Holter monitor. Follow-up is scheduled UTI ruled out with negative urine culture. No need for additional antibiotic therapy Assessment: See above. See DC summary Patient Instructions: A-fib (Atrial Fibrillation) (ED) Discharge Date/Time: 07/08/23 17:17
--- NOTE | 2023-07-08 16:22 | PC.NURSE ---
Pt A&OX4. OCHOA to command 5/5 except LUE d/t decreased ROM in shoulder. Denies pain/discomfort. Refusing am meds until seen by Dr Brennan. Given late approx 1115. LSCTA denies SOB or CP, Afib on tele. Approx 1200 heart rate sustained in 140-150's. Kellen HOGUE notified placed back on cardizem drip started at 5mg/hr then up to 10 able to wean off by 1430 with heart rate sustained in 80's Afib on tele. Ambulated on unit heart rate maintained in 80's entire time. Plan to discharge to home. Awaiting ride.
== END 2023-07-08 17:17 | disposition home or self-care (01) | DRG 309 ==
LOC: HO.ED 19:31 → HO.EDOVER 20:26 → HO.IMC 22:47
PROVIDERS: Nurse Practitioner Family; Admitting Provider Physician Assistant; Emergency Provider Emergency Medicine; PCP Family Medicine; Visit Provider Physician Assistant
DX: I48.19 Other persistent atrial fibrillation (principal); I50.32 Chronic diastolic (congestive) heart failure; N17.9 Acute kidney failure, unspecified; N39.0 Urinary tract infection, site not specified; I47.19 Other supraventricular tachycardia; I11.0 Hypertensive heart disease with heart failure; Z79.01 Long term (current) use of anticoagulants; Z79.899 Other long term (current) drug therapy
CPT/HCPCS: 36415; 71045; 80048; 80076; 81001; 83735; 84439; 84443; 84484; 85025; 85610; 87040; 87086; 93005; 99285; J0696; J1160

== ENCOUNTER → 2023-07-06 20:22 | Outpatient (BNV) | payer MEDICARE, SELFPAY | PROVIDERS: Admitting Provider Physician Assistant; Emergency Provider Emergency Medicine; PCP Family Medicine; Visit Provider Internal Medicine Cardiovascular Disease | DX: I48.19 Other persistent atrial fibrillation (principal); I50.32 Chronic diastolic (congestive) heart failure | CPT/HCPCS: 99223; 99233 ==

== ENCOUNTER → 2023-07-06 20:22 | Outpatient (BNV) | payer MEDICARE, SELFPAY | PROVIDERS: Admitting Provider Physician Assistant; Emergency Provider Emergency Medicine; PCP Family Medicine; Visit Provider Physician Assistant | DX: I48.0 Paroxysmal atrial fibrillation (principal); N39.0 Urinary tract infection, site not specified; N17.9 Acute kidney failure, unspecified; I47.10 Supraventricular tachycardia, unspecified | CPT/HCPCS: 99223; 99233; 99239 ==

== ENCOUNTER → 2023-07-10 10:41 | Outpatient (REF) | payer MEDICARE, SELFPAY ==
--- NOTE | 2023-07-10 10:45 | HM_ITS ---
* Total monitoring time 2 days. * Underlying rhythm is atrial fibrillation. Average ventricular rate 69/Min. Range 27 to 102/Min. * About 248 pauses noted longer than 2.5 seconds. Longest episode 4.2 seconds at 07:56. * No patient markers or diary events. MTDD
== END ==
LOC: HO.CARD 10:41
PROVIDERS: PCP Family Medicine; Visit Provider Internal Medicine Cardiovascular Disease
DX: I47.19 Other supraventricular tachycardia (principal); I48.0 Paroxysmal atrial fibrillation
CPT/HCPCS: 93225

== ENCOUNTER → 2023-07-10 10:45 | Outpatient (BNV) | payer MEDICARE, SELFPAY | PROVIDERS: PCP Family Medicine; Visit Provider Internal Medicine | DX: I48.0 Paroxysmal atrial fibrillation (principal) | CPT/HCPCS: 93227 ==

== ENCOUNTER 2023-07-15 09:27 | Inpatient (IN) | payer MEDICARE, SELFPAY ==
--- NOTE | ~2023-07-15 | XR_ITS ---
EXAMINATION: XR CHEST CLINICAL INFORMATION: Generalized weakness. COMPARISON: Chest radiograph 07/06/2023. TECHNIQUE: AP view of the chest was obtained. FINDINGS: Unchanged appearance of the cardiomediastinal silhouette with enlarged central pulmonary vasculature. Equivocal, very subtle focal hazy opacity projecting over the right upper lobe. Unchanged mild chronic blunting of the left lateral costophrenic angle. No significant pleural effusion. No pneumothorax. No acute osseous findings. Visualized upper abdomen is within normal limits. XR/XR chest 1V IMPRESSION: Equivocal, very subtle focal hazy opacity in the right upper lobe which could be related with an early infiltrate. Recommend clinical correlation for pneumonia and a short-term follow-up chest radiograph for reevaluation.
--- NOTE | ~2023-07-15 | US_ITS ---
EXAMINATION: US ABDOMEN LIMITED CLINICAL INFORMATION: Elevated LFTs. COMPARISON: CT abdomen/pelvis 12/15/2022. TECHNIQUE: Real-time imaging of the right upper quadrant abdominal viscera. FINDINGS: Limited examination secondary to patient body habitus and shadowing from overlying bowel gas. PANCREAS: Not well seen due to shadowing from overlying bowel gas. LIVER: The liver is normal in size. The liver contour is normal. Parenchymal echogenicity is normal. No focal hepatic lesion. There is no intrahepatic biliary duct dilatation seen. GALLBLADDER: Avascular sludge ball. No evidence of gallbladder wall thickening. No pericholecystic free fluid. Negative Ordoñez's sign. COMMON BILE DUCT: Not seen due to shadowing from overlying bowel gas. RIGHT KIDNEY: 4 cm simple appearing cyst for which no imaging follow-up is recommended. No hydronephrosis or renal calculi. The kidney measures 10 cm in maximum dimension. FREE FLUID: None. US/US abdomen limited IMPRESSION: 1. Limited examination secondary to patient body habitus and shadowing from overlying bowel gas. 2. Gallbladder sludge without sonographic evidence of acute cholecystitis.
--- NOTE | 2023-07-15 09:43 | ECG_ITS ---
Test Reason : rule out AFIB Blood Pressure : / mmHG Vent. Rate : 060 BPM Atrial Rate : 060 BPM P-R Int : 168 ms QRS Dur : 090 ms QT Int : 390 ms P-R-T Axes : 059 031 008 degrees QTc Int : 390 ms Normal sinus rhythm Nonspecific ST abnormality Abnormal ECG When compared with ECG of 06-JUL-2023 19:30, Rhythm change Vent. rate has decreased BY 76 BPM Nonspecific T wave abnormality, improved in Lateral leads Referred By: Generic ED Physician Electronically Signed By:QUANG JOLLY
[2023-07-15 11:17] VITALS: BP 137/68; PULSE 61; RESP 16; TEMP 36.4; O2SAT 99; BMI 29.1
--- NOTE | 2023-07-15 11:23 | ED_ITS ---
HPI - General Adult General Chief complaint: Arrhythmia/Palpitations Stated complaint: Afib Nausea Time Seen by Provider: 07/15/23 15:18 Source: patient and family (Daughter (healthcare proxy).) Mode of arrival: ambulatory Limitations: no limitations History of Present Illness HPI narrative: A 78-year-old female brought in from PCP office for further evaluation of constant nausea and dry heaving for the past 4 days. Patient with history of paroxysmal atrial fibrillation recently admitted to the hospital on 07/06 with adjustment of her medication patient was started on carvedilol, doubled her diltiazem to 240 mg daily, and was started on digoxin 250 mcg daily patient started to have nausea, loss of appetite, dry heaving since started on digoxin patient was instructed to stop taking digoxin 2 days ago. No ear ringing, no abdominal pain, no diarrhea. Related Data Home Medications Medication Instructions Recorded Confirmed montelukast 10 mg tablet 10 mg PO BEDTIME 05/16/20 07/06/23 fexofenadine 180 mg tablet 180 mg PO DAILY 06/21/21 07/06/23 ([facility]) coenzyme Q10 100 mg tablet 100 mg PO DAILY 07/28/21 07/06/23 magnesium 250 mg tablet 250 mg PO BEDTIME 07/28/21 07/06/23 multivitamin 1 tab PO DAILY 07/28/21 07/06/23 vitamin E (dl, acetate) 180 mg 180 mg PO DAILY 07/28/22 07/06/23 (400 unit) capsule ascorbic acid (vitamin C) 500 mg 1,000 mg PO DAILY 09/26/22 07/06/23 tablet furosemide 40 mg tablet 40 mg PO DAILY 09/26/22 07/06/23 omeprazole 40 mg capsule,delayed 40 mg PO BEDTIME 09/26/22 07/06/23 release turmeric 400 mg capsule 400 mg PO DAILY@1200 11/03/22 07/06/23 cholecalciferol (vitamin D3) 50 50 mcg PO DAILY 12/18/22 07/06/23 mcg (2,000 unit) capsule gabapentin 300 mg capsule 600 mg PO BEDTIME 04/06/23 07/06/23 meloxicam 15 mg tablet 15 mg PO DAILY 04/06/23 07/06/23 spironolactone 25 mg tablet 12.5 mg PO DAILY 04/06/23 07/06/23 lactobacillus combination no.4 3 3,000 mmu cells PO DAILY 07/06/23 07/06/23 billion cell capsule (Probiotic) Previous Rx's Medication Instructions Recorded ipratropium 0.5 mg-albuterol 3 mg 3 ml inhalation Q4-6H PRN for 12/02/22 (2.5 mg base)/3 mL nebulization wheezing #180 mL soln rivaroxaban 20 mg tablet (Xarelto) 20 mg PO DAILY@1700 #90 tabs 01/19/23 atorvastatin 40 mg tablet 40 mg PO DAILY #90 tabs 04/27/23 empagliflozin 10 mg tablet 10 mg PO DAILY #30 tabs 05/12/23 (Jardiance) carvedilol 25 mg tablet 25 mg PO BIDWM #60 tabs 07/08/23 digoxin 250 mcg (0.25 mg) tablet 250 mcg PO DAILY #60 tabs 07/08/23 (Digox) diltiazem HCl 240 mg 240 mg PO DAILY #60 caps 07/08/23 capsule,extended release 24 hr, controlled (DILT-XR) Allergies Allergy/AdvReac Type Severity Reaction Status Date / Time aspirin [ASPIRIN] Allergy Unknown RASH Verified 04/06/23 10:34 Sulfa (Sulfonamide Allergy Unknown RASH Verified 04/06/23 10:34 Antibiotics) [SULFA (SULFONAMIDE ANTIBIOTICS)] flecainide AdvReac Intermediate Dizziness Verified 04/06/23 10:34 amiodarone AdvReac Mild Dizziness Verified 04/06/23 10:34 adhesives AdvReac Unknown Uncoded 04/06/23 10:34 Review of Systems 2 Review of Systems: All other systems are reviewed and are negative Constitutional: Reports as per HPI and Reports no additional constitutional complaints Eyes: Reports as per HPI and Reports no additional eye complaints Reports system reviewed and no additional complaints, except as documented Cardiovascular: Reports as per HPI and Reports no additional cardiovascular complaints Respiratory: Reports as per HPI and Reports no additional respiratory complaints Gastrointestinal: Reports as per HPI and Reports no additional gastrointestinal complaints Genitourinary: Reports no additional female genitourinary complaints Musculoskeletal: Reports no additional musculoskeletal complaints Skin/Breast: Reports system reviewed and no additional complaints, except as docu Psychiatric: Reports no additional psychiatric complaints Endocrine: Reports no additional endocrine complaints Hematologic/Lymphatic: Reports no additional hematologic/lymphatic complaints Allergic/Immunologic: Reports no additional allergic/immunologic complaints Reports system reviewed and no additional complaints, except as documented and Reports Abnormal speech present FOR[facility]LY [facility] Past Medical History Medical History Preoperative cardiovascular examination NSTEMI (non-ST elevated myocardial infarction) Atrial fibrillation with RVR Pulmonary hypertension Paroxysmal atrial fibrillation Chronic heart failure with preserved ejection fraction (HFpEF) Chronic heart failure with preserved ejection fraction (HFpEF) Cardiomyopathy Pulmonary hypertension Diastolic dysfunction History of cardiomyopathy HTN (hypertension) Paroxysmal atrial fibrillation History of cardioversion Surgical History S/P cardiac catheterization Hx of total hip arthroplasty Hx of cardiac cath Hx of hand surgery History of back surgery Family History Family History Father Cancer Mother Stroke Brother Atrial fibrillation Sister Cardiovascular disease Atrial fibrillation Social History Social History Household Members: None Housing: House Do you presently have visiting nurse or other home services: No Unable to assess alcohol history related to: Unknown Alcohol intake: former Patient Tobacco Use Status: Never used Tobacco Smoked in Last 30 Days: No Second Hand Smoke Exposure: No Use of substances other than those prescribed or required for medical reasons: No Advance Directives: Yes Advance Directives on File: Yes Advance Directives Date on File: 12/18/22 service: No Current occupational status: retired Physical Exam ED Vital Signs: Vital Signs - 24 hr 07/15/23 11:17 07/15/23 16:58 Temperature 97.6 F 98.7 F Pulse Rate 61 67 Respiratory Rate 16 14 Blood Pressure 137/68 159/71 H Pulse Oximetry 99 98 Oxygen Delivery Method Room Air Room Air BMI result Body Mass Index 29.1 Vital signs have been reviewed and appear to be correct. Blood pressure elevated. Heart rate normal. Respiratory rate normal. Temperature normal. Oxygen saturation normal. Appearance: Alert. Oriented X3. No acute distress. Head: Normal external exam. Normocephalic. Atraumatic. No [place] signs noted. No raccoon eyes noted Eyes: PERRLA. EOMI. Conjunctiva and sclera normal. Eyelids normal. ENT: TM's Normal. Pharynx normal. Uvula midline. Moist mucous membranes. No trismus noted. No drooling noted. No muffled voice noted. Neck: Normal inspection. Neck supple. FROM. No adenopathy. Thyroid Normal. No meningeal signs. No neck mass noted. CVS: Normal heart rate and rhythm. Heart sound normal. No murmurs noted. Pulses normal throughout. Respiratory: No respiratory distress. Painless inspiration. Breath sounds normal. No wheezes/rales/rhonchi noted. Chest nontender. No accessory muscle usage noted or decreased air movement noted. Abdomen: Soft and nontender. Bowel sounds normal in all 4 quadrants. No distention noted. No organomegaly noted. No visible injury noted. Back: No CVA tenderness. Full range of motion noted. Skin: Skin warm and dry. Normal skin color. Normal skin turgor. No rashes/lesions/lacerations noted. Extremities: No lower extremity edema. Extremities exhibit normal range of motion. Extremities nontender. Neuro: Oriented X 3. Cranial nerve exam: II-XII are grossly intact No motor deficit. No sensory deficit. Reflexes normal. Course Course Course Narrative: This is an RME: Additional HPI, ROS, PE not included below will be deferred to primary provider. This is a 78-year-old female with a history of paroxysmal atrial fibrillation anticoagulated with Xarelto history of failed cardioversion x9 cot and 3 cardio ablation, heart failure preserved ejection fracture, pulmonary hypertension, coronary artery disease, cardiomyopathy, hypertension who presents to the ED with complaints of ongoing nausea since . Patient reports that she has been unable to eat secondary to her symptoms. She was admitted to the hospital on July 06 with atrial fibrillation RVR and was discharged on 07/08. Abdomen is soft, nontender. Plan: Labs, EKG, UA Reevaluation(s) Reevaluation #1: 78-year-old female came in with intractable nausea and dry heaving after was started on digoxin patient cannot keep any food down, digoxin level is elevated. Non complicated UTI start the patient on ceftriaxone IV. Will admit the patient. Time: 17:58 Medical Decision Making Differential Diagnosis Differential Diagnoses: The differential diagnosis associated with the presentation includes (Digoxin toxicity, electrolyte abnormality, severe anemia, UTI.) Admission/Observation Consideration of admission/observation: Escalation of care including admission/observation considered Consult Healthcare Provider Management of the patient was discussed with: Hospitalist Lab Data MDM Lab Attestation statement: I reviewed the patient's lab results. 07/15/23 12:41 07/15/23 12:42 Labs: Lab Results 07/15/23 07/15/23 07/15/23 Range/Units 12:41 12:42 12:48 WBC 9.6 (4.8-10.8) X10*3/uL RBC 4.78 (4.20-5.50) X10*6/uL Hgb 15.5 (12.0-16.0) g/dl Hct 45.8 (37.0-47.0) % MCV 95.8 (80.0-98.0) fL MCH 32.4 (27.0-33.0) pg MCHC 33.8 (31.0-35.0) g/dl RDW 12.2 (11.0-16.0) % Plt Count 227 (160-400) X10*3/uL MPV 8.9 L (9.4-12.3) fL Immature Gran % (Auto) 0.3 (0.0-0.4) % Neut % (Auto) 78.4 H (45-73) % Lymph % (Auto) 13.9 L (20-40) % [place] % (Auto) 6.9 (2-11) % Eos % (Auto) 0.2 (0-4) % Baso % (Auto) 0.3 (0-2) % Lymph # (Auto) 1.3 (1.2-4.9) X10*3/uL [place] # (Auto) 0.7 (0.1-1.2) X10*3/uL Eos # (Auto) 0.0 (0.0-0.4) X10*3/uL Baso # (Auto) 0.0 (0.0-0.2) X10*3/uL Abs Immat Gran (auto) 0.03 (0.00-0.03) X10*3/uL Absolute Neuts (auto) 7.5 (2.0-8.3) x10*3/uL Absolute Nucleated RBC 0.000 (0.0-0.012) X10*3/uL Nucleated RBC % (auto) 0.0 (0.0-0.2) /100WBC PT 20.9 H D (11.1-13.3) SEC INR 1.7 H (0.9-1.1) APTT 36.7 H (26.0-36.4) SEC Sodium 142 (135-145) mmol/L Potassium 4.7 (3.3-5.1) mmol/L Chloride 107 (96-108) mmol/L Carbon Dioxide 25 (22-29) mmol/L Anion Gap 15 (12-20) BUN 47 H (9-16) mg/dL Creatinine 1.43 H (0.5-1.4) mg/dL Estim Creat Clear Calc 33.2 Estimated GFR 35 Random Glucose 116 H (60-115) mg/dL Calcium 10.4 H D (8.4-10.2) mg/dL Magnesium 3.1 H (1.6-2.6) mg/dL Total Bilirubin 2.1 H (0.0-1.0) mg/dL Direct Bilirubin 0.6 H (0.0-0.5) mg/dL AST 18 (5-31) U/L ALT 15 (0-31) U/L Alkaline Phosphatase 83 (39-117) U/L Troponin I High Sens 12.1 D (<3.5-17.0) ng/L Total Protein 8.8 H (6.5-8.0) g/dL Albumin 5.0 (3.5-5.0) g/dL Lipase 22 (8-78) U/L Urine Color Yellow Urine Appearance Clear Urine pH 5.5 (5.0-9.0) Ur Specific [place] >= 1.030 H (1.005-1.025) Urine Protein Negative (Neg-Trace) mg/dL Urine Glucose (UA) >=1000 H (Negative) mg/dL Urine Ketones 15 (Negative) mg/dL Urine Blood Moderate (2+) H (Negative) Urine Nitrite Negative (Negative) Ur Leukocyte Esterase Small (1+) H (Negative) Urine RBC 3-5 H (0-2) /HPF Urine WBC 21-50 H (0-5) /HPF Ur Squamous Epith Cells 6-10 (0-2) /HPF Urine Bacteria None Seen (None Seen) Hyaline Casts 0-2 (0-2) /LPF Digoxin (0.8-2.0) ng/mL Influenza Type A (PCR) NEGATIVE (Negative) Influenza Type B (PCR) NEGATIVE (Negative) RSV RNA Qual (PCR) NEGATIVE (Negative) SARS-CoV-2 RNA (RT-PCR) NEGATIVE (Negative) 07/15/23 Range/Units 15:59 WBC (4.8-10.8) X10*3/uL RBC (4.20-5.50) X10*6/uL Hgb (12.0-16.0) g/dl Hct (37.0-47.0) % MCV (80.0-98.0) fL MCH (27.0-33.0) pg MCHC (31.0-35.0) g/dl RDW (11.0-16.0) % Plt Count (160-400) X10*3/uL MPV (9.4-12.3) fL Immature Gran % (Auto) (0.0-0.4) % Neut % (Auto) (45-73) % Lymph % (Auto) (20-40) % [place] % (Auto) (2-11) % Eos % (Auto) (0-4) % Baso % (Auto) (0-2) % Lymph # (Auto) (1.2-4.9) X10*3/uL [place] # (Auto) (0.1-1.2) X10*3/uL Eos # (Auto) (0.0-0.4) X10*3/uL Baso # (Auto) (0.0-0.2) X10*3/uL Abs Immat Gran (auto) (0.00-0.03) X10*3/uL Absolute Neuts (auto) (2.0-8.3) x10*3/uL Absolute Nucleated RBC (0.0-0.012) X10*3/uL Nucleated RBC % (auto) (0.0-0.2) /100WBC PT (11.1-13.3) SEC INR (0.9-1.1) APTT (26.0-36.4) SEC Sodium (135-145) mmol/L Potassium (3.3-5.1) mmol/L Chloride (96-108) mmol/L Carbon Dioxide (22-29) mmol/L Anion Gap (12-20) BUN (9-16) mg/dL Creatinine (0.5-1.4) mg/dL Estim Creat Clear Calc Estimated GFR Random Glucose (60-115) mg/dL Calcium (8.4-10.2) mg/dL Magnesium (1.6-2.6) mg/dL Total Bilirubin (0.0-1.0) mg/dL Direct Bilirubin (0.0-0.5) mg/dL AST (5-31) U/L ALT (0-31) U/L Alkaline Phosphatase (39-117) U/L Troponin I High Sens (<3.5-17.0) ng/L Total Protein (6.5-8.0) g/dL Albumin (3.5-5.0) g/dL Lipase (8-78) U/L Urine Color Urine Appearance Urine pH (5.0-9.0) Ur Specific [place] (1.005-1.025) Urine Protein (Neg-Trace) mg/dL Urine Glucose (UA) (Negative) mg/dL Urine Ketones (Negative) mg/dL Urine Blood (Negative) Urine Nitrite (Negative) Ur Leukocyte Esterase (Negative) Urine RBC (0-2) /HPF Urine WBC (0-5) /HPF Ur Squamous Epith Cells (0-2) /HPF Urine Bacteria (None Seen) Hyaline Casts (0-2) /LPF Digoxin 2.1 H* (0.8-2.0) ng/mL Influenza Type A (PCR) (Negative) Influenza Type B (PCR) (Negative) RSV RNA Qual (PCR) (Negative) SARS-CoV-2 RNA (RT-PCR) (Negative) Independent Interpretation I performed an independent interpretation of an: EKG (Normal sinus rhythm at 60 beats per minutes, normal axis deviation, normal intervals, nonspecific T-wave abnormality persist with no significant change from old EKG.) and Plain X-Ray (Equivocal, very subtle focal hazy opacity in the right upper lobe which could be related with an early infiltrate. Recommend clinical correlation for pneumonia and a short-term follow-up chest radiograph for reevaluation. ) Radiology Impression Discussion of test interpretation with radiology: I have reviewed the radiologist's reading. Discharge Plan Discharge Clinical Impression: Nausea, Acute UTI, Pneumonia Digoxin toxicity Qualifiers: Encounter type: initial encounter Injury intent: accidental or unintentional Q ualified Code(s): T46.0X1A - Poisoning by cardiac-stimulant glycosides and drugs of similar action, accidental (unintentional), initial encounter Patient Disposition: Admitted As Inpatient
[2023-07-15 12:54] LABS: MANUAL DIFF FLAG NO
[2023-07-15 12:56] LABS: Basophils Percent Auto 0.3 % (0-2); Eosinophils Percent Auto 0.2 % (0-4); Hematocrit 45.8 % (37.0-47.0); Hemoglobin 15.5 g/dl (12.0-16.0); Imm Gran Abs Auto 0.03 X10*3/uL (0.00-0.03); Imm Gran Pct Auto 0.3 % (0.0-0.4); Lymphocytes Absolute Auto 1.3 X10*3/uL (1.2-4.9); Lymphocytes Percent Auto 13.9 % (20-40); Mean Corpuscular HGB Conc 33.8 g/dl (31.0-35.0); Mean Corpuscular Hemoglobin 32.4 pg (27.0-33.0); Mean Corpuscular Volume 95.8 fL (80.0-98.0); Mean Platelet Volume 8.9 fL (9.4-12.3); Monocytes Absolute Auto 0.7 X10*3/uL (0.1-1.2); Monocytes Percent Auto 6.9 % (2-11); Neutrophils Absolute Auto 7.5 x10*3/uL (2.0-8.3); Neutrophils Percent Auto 78.4 % (45-73); Platelet Count 227 X10*3/uL (160-400); Red Blood Count 4.78 X10*6/uL (4.20-5.50); Red Cell Distribution Width 12.2 % (11.0-16.0); White Blood Count 9.6 X10*3/uL (4.8-10.8)
[2023-07-15 12:57] LABS: Appearance Urine Clear; Color Urine Yellow; Glucose Urine UA >=1000 mg/dL (Negative); Leukocyte Esterase Urine Small (1+) (Negative); Nitrite Urine Negative (Negative); PH 5.5 (5.0-9.0); Specific Gravity - Urine >= 1.030 (1.005-1.025); UMIC TRIGGER UACC YES; Urine Blood Moderate (2+) (Negative); Urine Ketones 15 mg/dL (Negative); Urine Protein Negative (Neg-Trace)
[2023-07-15 13:01] LABS: INTERNATIONAL NORM RATIO 1.7 (0.9-1.1); Prothrombin Time 20.9 SEC (11.1-13.3)
[2023-07-15 13:04] LABS: Partial Thromboplastin Time 36.7 SEC (26.0-36.4)
[2023-07-15 13:11] LABS: Bacteria Urine None Seen (None Seen); Hyaline Casts Urine 0-2 /LPF (0-2); UACC Culture Trigger YES; WBC Urine 21-50 /HPF (0-5)
[2023-07-15 13:13] LABS: Alanine Aminotransferase 15 U/L (0-31); Alkaline Phosphatase 83 U/L (39-117); Anion Gap 15 (12-20); Aspartate Amino Transferase 18 U/L (5-31); Bilirubin Direct 0.6 mg/dL (0.0-0.5); Bilirubin Total 2.1 mg/dL (0.0-1.0); Blood Urea Nitrogen 47 mg/dL (9-16); Calcium 10.4 mg/dL (8.4-10.2); Carbon Dioxide 25 mmol/L (22-29); Chloride 107 mmol/L (96-108); Creatinine Clr Calc Pharmacy 33.2; Estimated Glomerular Filt Rate 35; Glucose Random 116 mg/dL (60-115); Lipase 22 U/L (8-78); Magnesium 3.1 mg/dL (1.6-2.6); Potassium 4.7 mmol/L (3.3-5.1); Sodium 142 mmol/L (135-145); Total Protein 8.8 g/dL (6.5-8.0)
[2023-07-15 13:21] LABS: Troponin-I High Sensitivity 12.1 ng/L (<3.5-17.0)
[2023-07-15 13:52] LABS: Influenza A PCR NEGATIVE (Negative); Influenza B PCR NEGATIVE (Negative); Resp Syncy Virus RNA Qual PCR NEGATIVE (Negative); SARS COV2 PCR INHOUSE NEGATIVE (Negative)
[2023-07-15 16:58] VITALS: BP 159/71; PULSE 67; RESP 14; TEMP 37.1; O2SAT 98
--- NOTE | 2023-07-15 17:36 | PC.NURSE ---
Attempted IV twice on the right arm, unsuccessful. Pt requested someone else do her IV.
[2023-07-15 17:51] LABS: Digoxin 2.1 ng/mL (0.8-2.0)
[2023-07-15] MEDS: 0.9 % Sodium Chloride 1,000 ML 250 ML IV (18:31)
[2023-07-15] MEDS: cefTRIAXone sodium 1 GM in 0.9 % Sodium Chloride 50 ML IV (18:32)
--- NOTE | 2023-07-15 18:34 | PC.NURSE ---
multiple attempts made for IV access, abx delayed due to no accesses/cultures, MD [email or web address] initiating abx after first set of cultures.
[2023-07-15 18:35] VITALS: BP 166/63; PULSE 63; RESP 14; O2SAT 97
--- NOTE | 2023-07-15 18:45 | P.HPHOSP_ITS ---
History of Present Illness Date of Service: 07/15/23 Attending physician on admission: Pradip Bianchi Chief Complaint: n/v, po intolerance 78-year-old female with history paroxysmal atrial fibrillation anticoagulated with Xarelto history of failed cardioversion x9 and 3 cardio ablation, heart failure preserved ejection fraction, pulmonary hypertension, coronary artery disease, cardiomyopathy, hypertension who presents to the ED earlier today from PCP office for evaluation of intractable nausea and vomiting ongoing for 5 days. He was admitted and discharged last week from 07/06-07/08 for atrial fibrillation with RVR. Cardiology was consulted and ratio to [facility] electrophysiology who did not recommend transfer but instead recommended rate control. On discharge, her diltiazem was increased 2/240 mg daily, carvedilol was increased to 25 mg twice daily, and digoxin 0.25 mg daily was added. About 2 days after discharge, she reports symptoms began and she has not been able to tolerate much orally since then. States symptoms are mostly constant. Denies any fevers, chills, associated abdominal pain, diarrhea, urinary symptoms, shortness of breath, chest pain. She denies any sick contacts. Denies eating any bad foods. She states that her PCP advised her to stop taking the digoxin and her last dose was 3 days ago. On arrival to the ED, vital signs stable. Hematology studies are unremarkable. Creatinine 1.43, baseline around 1.06. BUN forty-seven. Electrolyte levels normal except for calcium 10.4 and magnesium of 3.1. Total bilirubin 2.1, direct bilirubin 0.6. AST/ALT normal. Troponin 12.1. Urinalysis with 1+ leukocytes, 2+ blood, negative nitrites, significant glucose, elevated specific gravity, positive urinary sediment but negative for bacteria. Digoxin level 2.1. Negative for influenza, COVID, RSV. CXR shows very subtle focal hazy opacity in the right upper lobe possibly related to early infiltrate. Abdominal ultrasound limited secondary to body habitus but there is noted to be gallbladder sludge without sonographic evidence of acute cholecystitis. Common bile duct not seen due to overlying bowel gas. In the ED she is receiving 1 L IV NS and was also given 1 g ceftriaxone. Review of Systems 2 Review of Systems: General: No fevers, malaise, unintentional weight loss HEENT: No blurred vision, diplopia. No sore throat, nasal congestion, rhinorrhea, sinus pain, ear pain Cardiovascular: No chest pain, palpitations, or leg edema Respiratory: No shortness of breath, wheezing, cough GI: +nausea, +vomiting. No abdominal pain, diarrhea, constipation, melena, hematochezia : No dysuria, hematuria, increased urinary frequency, decreased urinary output MSK: No myalgia, back pain Neuro: No headaches, weakness, paresthesias Skin: No rashes or lesions [facility] Medical History (Updated 07/15/23 @ 19:07 by MYKEL Champagne) Preoperative cardiovascular examination NSTEMI (non-ST elevated myocardial infarction) Atrial fibrillation with RVR Pulmonary hypertension Paroxysmal atrial fibrillation Chronic heart failure with preserved ejection fraction (HFpEF) Chronic heart failure with preserved ejection fraction (HFpEF) Cardiomyopathy Pulmonary hypertension Diastolic dysfunction History of cardiomyopathy HTN (hypertension) Paroxysmal atrial fibrillation History of cardioversion Family History Father Cancer Mother Stroke Brother Atrial fibrillation Sister Cardiovascular disease Atrial fibrillation Surgical History S/P cardiac catheterization Hx of total hip arthroplasty Hx of cardiac cath Hx of hand surgery History of back surgery Social History Household Members: None Housing: House Do you presently have visiting nurse or other home services: No Unable to assess alcohol history related to: Unknown Alcohol intake: former Patient Tobacco Use Status: Never used Tobacco Smoked in Last 30 Days: No Second Hand Smoke Exposure: No Use of substances other than those prescribed or required for medical reasons: No Advance Directives: Yes Advance Directives on File: Yes Advance Directives Date on File: 12/18/22 service: No Current occupational status: retired Meds Allergies Allergy/AdvReac Type Severity Reaction Status Date / Time aspirin [ASPIRIN] Allergy Unknown RASH Verified 04/06/23 10:34 Sulfa (Sulfonamide Allergy Unknown RASH Verified 04/06/23 10:34 Antibiotics) [SULFA (SULFONAMIDE ANTIBIOTICS)] flecainide AdvReac Intermediate Dizziness Verified 04/06/23 10:34 amiodarone AdvReac Mild Dizziness Verified 04/06/23 10:34 adhesives AdvReac Unknown Uncoded 04/06/23 10:34 Active Medications: Current Medications Azithromycin 500 mg/ Sodium (Chloride) 250 mls @ 125 mls/hr IV ONCE ONE Stop: 07/15/23 20:02 Sodium Chloride (Ns) 1,000 mls @ 250 mls/hr IV .Q4H ONE Stop: 07/15/23 22:02 Last Admin: 07/15/23 18:31 Dose: 250 mls/hr Home Medications Medication Instructions Recorded Confirmed Last Taken Type montelukast 10 mg tablet 10 mg PO BEDTIME 05/16/20 07/15/23 07/05/23 History fexofenadine 180 mg tablet 180 mg PO DAILY 06/21/21 07/15/23 07/06/23 History (Shea Allergy) coenzyme Q10 100 mg tablet 100 mg PO DAILY 07/28/21 07/15/23 07/06/23 History magnesium 250 mg tablet 250 mg PO BEDTIME 07/28/21 07/15/23 07/05/23 History multivitamin 1 tab PO DAILY 07/28/21 07/15/23 07/06/23 History vitamin E (dl, acetate) 180 mg 180 mg PO DAILY 07/28/22 07/15/23 07/06/23 History (400 unit) capsule ascorbic acid (vitamin C) 500 mg 1,000 mg PO DAILY 09/26/22 07/15/23 07/06/23 History tablet furosemide 40 mg tablet 40 mg PO DAILY 09/26/22 07/15/23 07/06/23 History omeprazole 40 mg capsule,delayed 40 mg PO BEDTIME 09/26/22 07/15/23 07/05/23 History release turmeric 400 mg capsule 400 mg PO DAILY@1200 11/03/22 07/15/23 07/05/23 History cholecalciferol (vitamin D3) 50 50 mcg PO DAILY 12/18/22 07/15/23 07/06/23 History mcg (2,000 unit) capsule gabapentin 300 mg capsule 600 mg PO BEDTIME 04/06/23 07/15/23 07/05/23 History meloxicam 15 mg tablet 15 mg PO DAILY 04/06/23 07/15/23 07/06/23 History spironolactone 25 mg tablet 12.5 mg PO DAILY 04/06/23 07/15/23 07/06/23 History lactobacillus combination no.4 3 3,000 mmu cells PO DAILY 07/06/23 07/15/23 07/06/23 History billion cell capsule (Probiotic) Physical Exam 2 Vital Signs and Narrative: Vital Signs: Last Vital Signs Temp 98.7 F 07/15/23 16:58 Pulse 63 07/15/23 18:35 Resp 14 07/15/23 18:35 BP 166/63 H 07/15/23 18:35 Pulse Ox 97 07/15/23 18:35 O2 Del Method Room Air 07/15/23 18:35 BMI result Body Mass Index 29.1 Constitutional - Awake and Alert, No apparent distress Eyes - PERRLA, EOMI Cardiovascular - S1S2, irregularly irregular, rate normal, No edema Respiratory - Normal lung expansion, Normal respiratory effort, No respiratory distress, CTA bilaterally Gastrointestinal - mild epigastric ttp. ND; +BS; No rebound or guarding Extremities - no calf tenderness bilaterally, no swelling Skin - Warm/Dry Neurological - Alert & oriented x3 Psychological - Appropriate affect Results Labs 07/15/23 12:41 07/15/23 12:42 Labs: Laboratory Results - last 24 hr 07/15/23 07/15/23 07/15/23 12:41 12:42 12:48 MCV 95.8 MCH 32.4 MCHC 33.8 RDW 12.2 Plt Count 227 MPV 8.9 L Immature Gran % (Auto) 0.3 Neut % (Auto) 78.4 H Lymph % (Auto) 13.9 L [place] % (Auto) 6.9 Eos % (Auto) 0.2 Baso % (Auto) 0.3 Lymph # (Auto) 1.3 [place] # (Auto) 0.7 Eos # (Auto) 0.0 Baso # (Auto) 0.0 Abs Immat Gran (auto) 0.03 Absolute Neuts (auto) 7.5 Absolute Nucleated RBC 0.000 Nucleated RBC % (auto) 0.0 PT 20.9 H D INR 1.7 H APTT 36.7 H Anion Gap 15 Estim Creat Clear Calc 33.2 Estimated GFR 35 Random Glucose 116 H Calcium 10.4 H D Magnesium 3.1 H Total Bilirubin 2.1 H Direct Bilirubin 0.6 H AST 18 ALT 15 Alkaline Phosphatase 83 Total Protein 8.8 H Albumin 5.0 Lipase 22 Urine Color Yellow Urine Appearance Clear Urine pH 5.5 Ur Specific [place] >= 1.030 H Urine Protein Negative Urine Glucose (UA) >=1000 H Urine Ketones 15 Urine Blood Moderate (2+) H Urine Nitrite Negative Ur Leukocyte Esterase Small (1+) H Urine RBC 3-5 H Urine WBC 21-50 H Ur Squamous Epith Cells 6-10 Urine Bacteria None Seen Hyaline Casts 0-2 Digoxin Influenza Type A (PCR) NEGATIVE Influenza Type B (PCR) NEGATIVE RSV RNA Qual (PCR) NEGATIVE SARS-CoV-2 RNA (RT-PCR) NEGATIVE 07/15/23 15:59 MCV MCH MCHC RDW Plt Count MPV Immature Gran % (Auto) Neut % (Auto) Lymph % (Auto) [place] % (Auto) Eos % (Auto) Baso % (Auto) Lymph # (Auto) [place] # (Auto) Eos # (Auto) Baso # (Auto) Abs Immat Gran (auto) Absolute Neuts (auto) Absolute Nucleated RBC Nucleated RBC % (auto) PT INR APTT Anion Gap Estim Creat Clear Calc Estimated GFR Random Glucose Calcium Magnesium Total Bilirubin Direct Bilirubin AST ALT Alkaline Phosphatase Total Protein Albumin Lipase Urine Color Urine Appearance Urine pH Ur Specific [place] Urine Protein Urine Glucose (UA) Urine Ketones Urine Blood Urine Nitrite Ur Leukocyte Esterase Urine RBC Urine WBC Ur Squamous Epith Cells Urine Bacteria Hyaline Casts Digoxin 2.1 H* Influenza Type A (PCR) Influenza Type B (PCR) RSV RNA Qual (PCR) SARS-CoV-2 RNA (RT-PCR) Imaging Radiologist's Impressions: Impressions Abdomen Ultrasound 07/15/23 16:25 IMPRESSION: 1. Limited examination secondary to patient body habitus and shadowing from overlying bowel gas. 2. Gallbladder sludge without sonographic evidence of acute cholecystitis. Chest X-Ray 07/15/23 16:55 IMPRESSION: Equivocal, very subtle focal hazy opacity in the right upper lobe which could be related with an early infiltrate. Recommend clinical correlation for pneumonia and a short-term follow-up chest radiograph for reevaluation. Assessment and Plan (1) Intractable nausea and vomiting: Status: Acute (2) Digoxin toxicity: Qualifiers: Encounter type: initial encounter Injury intent: accidental or unintentional Qualified Code(s): T46.0X1A - Poisoning by cardiac-stimulant glycosides and drugs of similar action, accidental (unintentional), initial encounter Status: Acute (3) JUAN M (acute kidney injury): Status: Acute Plan 78-year-old female with history paroxysmal atrial fibrillation anticoagulated with Xarelto history of cardioversion x9 and 3 cardio ablation, heart failure preserved ejection fraction, pulmonary hypertension, coronary artery disease, cardiomyopathy, hypertension admitted for intractable nausea vomiting with p.o. intolerance and acute kidney injury with digoxin toxicity. # intractable nausea vomiting with p.o. intolerance -suspect secondary to digoxin toxicity -continue IVF -clear liquid diet, advance as tolerated -ondansetron p.r.n. # acute kidney injury-likely prerenal related to hypovolemia/hypoperfusion from dehydration/poor p.o. intake -creatinine 1.46, baseline 1.06. BUN 47 -continue IVF -avoid nephrotoxins -monitor I and O -follow renal function and electrolyte levels # acute digoxin toxicity -digoxin level 2.1 in the ED, last dose 3 days ago -hold digoxin -cardiology consult -monitor on telemetry -follow digoxin level # chronic atrial fibrillation-rate controlled -continue Xarelto for anticoagulation -hold digoxin -continue carvedilol and diltiazem # heart failure preserved ejection fraction -note acute exacerbation -continue furosemide, Jardiance, spironolactone # pulmonary hypertension -continue beta-zayra # CAD/cardiomyopathy/HLD -continue statin, beta-zayra, Xarelto # GERD -continue PPI # hypertension -blood pressure reasonably controlled -continue diltiazem, carvedilol, spironolactone DVT prophylaxis-on Xarelto Full code Given patient's intractable nausea and vomiting and intolerance of p.o. related to digoxin toxicity resulting in acute kidney injury, patient will likely require inpatient admission for at least 2 midnights for IV fluid resuscitation, advancement of diet, close monitoring of I and O, and close monitoring of renal function and electrolyte levels. She will also require expert consultation as well as close monitoring of digoxin levels. Quality Stroke Does the patient have a stroke diagnosis?: No VTE Prior VTE?: No VTE Risk Level:: Medical - moderate - high VTE Device Contraindication: Treatment Not Indicated VTE Drug Contraindication: N/A - Med Ordered
--- NOTE | 2023-07-15 18:57 | PHA.MEDREC ---
Pharmacy Consult ? Medication Reconciliation Pharmacy has completed the medication reconciliation. Patient does not know medications. Reports she left her list here when she was discharged. Reported digoxin was stopped. Reports her carvedilol and diltiazem were increase on last admission. This match discharge summary. Utilized discharge summary for med rec. Alize Blank, DeanaD
[2023-07-15] MEDS: Rivaroxaban 20 MG TABLET PO (19:55)
[2023-07-15] MEDS: Azithromycin 500 MG in 0.9 % Sodium Chloride 250 ML 125 MG IV (19:55)
[2023-07-15 20:00] VITALS: BP 137/64; PULSE 64; RESP 16; TEMP 36.8; O2SAT 94
[2023-07-15] MEDS: Montelukast Sodium 10 MG TABLET PO (21:20)
[2023-07-15] MEDS: Gabapentin 300 MG CAPSULE 600 MG PO (21:20)
[2023-07-15] MEDS: Magnesium Oxide 400 MG TABLET 200 MG PO (21:21)
[2023-07-15] MEDS: Omeprazole 40 MG CAPSULE.DR PO (21:21)
[2023-07-15] MEDS: NaPROXEN 500 MG TABLET PO (21:21)
--- NOTE | 2023-07-15 22:13 | PC.NURSE ---
pt medicated per MAR, vss, pt cont's to decline second set of blood cultures.
[2023-07-15 22:36] VITALS: BP 152/81; PULSE 66; RESP 15; O2SAT 97
[2023-07-16] MEDS: 0.9 % Sodium Chloride Flush 3 ML SYRINGE IVFLUSH ×2 (01:06→09:38)
[2023-07-16 05:36] VITALS: BP 141/69; PULSE 54; RESP 16; TEMP 36.6; O2SAT 94
--- NOTE | 2023-07-16 08:50 | MHC.CM.PN ---
Patient is unavailable; CM spoke with Daughter/HCP/Lina @ [phone] and addressed IMM with her(original will be mailed certified letter to Lina and a copy will be placed on the chart). Patient lives alone in a house and she required no services nor DME MANAGER. Home/self care is the goal and CM has initiated and will follow for dc planning. PCP is Dr. Yair Huff.
[2023-07-16 09:21] LABS: MANUAL DIFF FLAG NO
[2023-07-16 09:24] LABS: Basophils Absolute Auto 0.1 X10*3/uL (0.0-0.2); Basophils Percent Auto 0.7 % (0-2); Eosinophils Absolute Auto 0.1 X10*3/uL (0.0-0.4); Eosinophils Percent Auto 1.3 % (0-4); Hematocrit 37.5 % (37.0-47.0); Hemoglobin 12.8 g/dl (12.0-16.0); Imm Gran Abs Auto 0.02 X10*3/uL (0.00-0.03); Imm Gran Pct Auto 0.3 % (0.0-0.4); Lymphocytes Absolute Auto 1.3 X10*3/uL (1.2-4.9); Lymphocytes Percent Auto 19.5 % (20-40); Mean Corpuscular HGB Conc 34.1 g/dl (31.0-35.0); Mean Corpuscular Hemoglobin 33.2 pg (27.0-33.0); Mean Corpuscular Volume 97.2 fL (80.0-98.0); Mean Platelet Volume 9.2 fL (9.4-12.3); Monocytes Absolute Auto 0.6 X10*3/uL (0.1-1.2); Monocytes Percent Auto 8.8 % (2-11); Neutrophils Absolute Auto 4.7 x10*3/uL (2.0-8.3); Neutrophils Percent Auto 69.4 % (45-73); Platelet Count 167 X10*3/uL (160-400); Red Blood Count 3.86 X10*6/uL (4.20-5.50); Red Cell Distribution Width 12.6 % (11.0-16.0); White Blood Count 6.7 X10*3/uL (4.8-10.8)
--- NOTE | 2023-07-16 09:30 | PC.NURSE ---
Called pharmacy about missing medications, will send up when they can.
[2023-07-16 09:33] VITALS: BP 132/62; PULSE 57; RESP 18; TEMP 36.7; O2SAT 92
[2023-07-16] MEDS: Spironolactone 25 MG TABLET 12.5 MG PO (09:34)
[2023-07-16] MEDS: Cholecalciferol (Vitamin D3) 25 MCG TABLET 50 MCG PO (09:35)
[2023-07-16] MEDS: Ascorbic Acid 500 MG TABLET 1000 MG PO (09:35)
[2023-07-16] MEDS: NaPROXEN 500 MG TABLET PO (09:36)
[2023-07-16] MEDS: Loratadine 10 MG TABLET PO (09:36)
[2023-07-16] MEDS: Atorvastatin Calcium 40 MG TABLET PO (09:36)
[2023-07-16] MEDS: Furosemide 40 MG TABLET PO (09:37)
[2023-07-16] MEDS: Multivitamin TABLET 1 TAB PO (09:37)
[2023-07-16 09:39] LABS: Digoxin 1.4 ng/mL (0.8-2.0)
[2023-07-16 09:40] LABS: Alanine Aminotransferase 12 U/L (0-31); Albumin Level 3.8 g/dL (3.5-5.0); Alkaline Phosphatase 62 U/L (39-117); Anion Gap 13 (12-20); Aspartate Amino Transferase 18 U/L (5-31); Bilirubin Direct 0.4 mg/dL (0.0-0.5); Bilirubin Total 1.2 mg/dL (0.0-1.0); Blood Urea Nitrogen 41 mg/dL (9-16); Calcium 8.8 mg/dL (8.4-10.2); Carbon Dioxide 21 mmol/L (22-29); Chloride 111 mmol/L (96-108); Creatinine Clr Calc Pharmacy 34.1; Estimated Glomerular Filt Rate 37; Glucose Random 207 mg/dL (60-115); Potassium 4.1 mmol/L (3.3-5.1); Sodium 141 mmol/L (135-145); Total Protein 6.6 g/dL (6.5-8.0)
--- NOTE | 2023-07-16 10:02 | PC.NURSE ---
Pt is a&ox3, resting on stretcher, respirations even and unlabored. Pt has no complaints at this time. Denies n/v. skin PWD.
[2023-07-16] MEDS: Empagliflozin 10 MG TABLET PO (10:30)
[2023-07-16] MEDS: Vitamin E (Dl,Tocopheryl Acet) 180 MG (400 UNIT) CAPSULE PO (10:30)
[2023-07-16 10:31] VITALS: BP 128/60; PULSE 56; RESP 19; O2SAT 94
--- NOTE | 2023-07-16 11:29 | P.DS_ITS ---
DS: Providers Provider Date of Service: 07/16/23 Date of admission: 07/15/23 18:42 Primary care physician: Yair Huff MD DS: Diagnosis Discharge Diagnosis (1) Intractable nausea and vomiting: Status: Acute (2) Digoxin toxicity: Status: Acute (3) JUAN M (acute kidney injury): Status: Acute DS: Summary Hospital Course Hospital Course: from initial hpi: 78-year-old female with history paroxysmal atrial fibrillation anticoagulated with Xarelto history of failed cardioversion x9 and 3 cardio ablation, heart failure preserved ejection fraction, pulmonary hypertension, coronary artery disease, cardiomyopathy, hypertension who presents to the ED earlier today from PCP office for evaluation of intractable nausea and vomiting ongoing for 5 days. He was admitted and discharged last week from 07/06-07/08 for atrial fibrillation with RVR. Cardiology was consulted and ratio to [facility] electrophysiology who did not recommend transfer but instead recommended rate control. On discharge, her diltiazem was increased 2/240 mg daily, carvedilol was increased to 25 mg twice daily, and digoxin 0.25 mg daily was added. About 2 days after discharge, she reports symptoms began and she has not been able to tolerate much orally since then. States symptoms are mostly constant. Denies any fevers, chills, associated abdominal pain, diarrhea, urinary symptoms, shortness of breath, chest pain. She denies any sick contacts. Denies eating any bad foods. She states that her PCP advised her to stop taking the digoxin and her last dose was 3 days ago. On arrival to the ED, vital signs stable. Hematology studies are unremarkable. Creatinine 1.43, baseline around 1.06. BUN forty-seven. Electrolyte levels normal except for calcium 10.4 and magnesium of 3.1. Total bilirubin 2.1, direct bilirubin 0.6. AST/ALT normal. Troponin 12.1. Urinalysis with 1+ leukocytes, 2+ blood, negative nitrites, significant glucose, elevated specific gravity, positive urinary sediment but negative for bacteria. Digoxin level 2.1. Negative for influenza, COVID, RSV. CXR shows very subtle focal hazy opacity in the right upper lobe possibly related to early infiltrate. Abdominal ultrasound limited secondary to body habitus but there is noted to be gallbladder sludge without sonographic evidence of acute cholecystitis. Common bile duct not seen due to overlying bowel gas. In the ED she is receiving 1 L IV NS and was also given 1 g ceftriaxone. hospital course: Patient was admitted for intractable nausea vomiting due to digoxin toxicity complicated by acute kidney injury and dehydration. She was treated with IV fluids and continue to hold digoxin. Digital level returned to normal, creatinine improved, nausea vomiting resolved. On discharge digoxin will be discontinued. For paroxysmal atrial fibrillation she was continued on carvedilol and diltiazem as well as Xarelto. She remained in sinus rhythm. For chronic diastolic CHF she will be restarted on maintenance Lasix, Jardiance, Aldactone. For coronary disease she was continued on Xarelto, statin. For hypertension was continue diltiazem, Coreg, Aldactone. Patient is feeling better will be discharged home. Time Attestation Discharge coordination time: Greater than 30 minutes Quality: Safe Use of Opioids Does Pt have an Active Cancer Diagnosis on the Problem List?: No Quality: Stroke Does the patient have a stroke diagnosis?: No Physical Exam Vital Signs: Vital Signs: Last Vital Signs Temp 98.0 F 07/16/23 09:33 Pulse 56 07/16/23 10:31 Resp 19 07/16/23 10:31 BP 128/60 07/16/23 10:31 Pulse Ox 94 07/16/23 10:31 O2 Del Method Room Air 07/16/23 10:31 BMI result Body Mass Index 29.1 General: AO X 3, no acute distress Resp: CTA bilateral, no accessory muscles used CVS: S1,S2,RRR GI: soft, non tender, non distended Neuro: motor grossly intact, alert Psych: appropriate affect, appropriate insight DS: Data Data Completed and Pending Completed studies during hospitalization [Text1]: Procedures Replacement of Left Hip Joint, Femoral Surface with Synthetic Substitute, Uncemented, Open Approach (12/18/22) Caodaism of Cardiac Rhythm, Single (09/10/22) Transfusion of Nonautologous Red Blood Cells into Peripheral Vein, Percutaneous Approach (12/18/22) Ultrasonography of Heart with Aorta, Transesophageal (07/27/21) Labs on day of discharge: Laboratory Results - last 24 hr 07/15/23 07/15/23 07/15/23 12:41 12:42 12:48 WBC 9.6 RBC 4.78 Hgb 15.5 Hct 45.8 MCV 95.8 MCH 32.4 MCHC 33.8 RDW 12.2 Plt Count 227 MPV 8.9 L Immature Gran % (Auto) 0.3 Neut % (Auto) 78.4 H Lymph % (Auto) 13.9 L [place] % (Auto) 6.9 Eos % (Auto) 0.2 Baso % (Auto) 0.3 Lymph # (Auto) 1.3 [place] # (Auto) 0.7 Eos # (Auto) 0.0 Baso # (Auto) 0.0 Abs Immat Gran (auto) 0.03 Absolute Neuts (auto) 7.5 Absolute Nucleated RBC 0.000 Nucleated RBC % (auto) 0.0 PT 20.9 H D INR 1.7 H APTT 36.7 H Sodium 142 Potassium 4.7 Chloride 107 Carbon Dioxide 25 Anion Gap 15 BUN 47 H Creatinine 1.43 H Estim Creat Clear Calc 33.2 Estimated GFR 35 Random Glucose 116 H Calcium 10.4 H D Magnesium 3.1 H Total Bilirubin 2.1 H Direct Bilirubin 0.6 H AST 18 ALT 15 Alkaline Phosphatase 83 Troponin I High Sens 12.1 D Total Protein 8.8 H Albumin 5.0 Lipase 22 Urine Color Yellow Urine Appearance Clear Urine pH 5.5 Ur Specific [place] >= 1.030 H Urine Protein Negative Urine Glucose (UA) >=1000 H Urine Ketones 15 Urine Blood Moderate (2+) H Urine Nitrite Negative Ur Leukocyte Esterase Small (1+) H Urine RBC 3-5 H Urine WBC 21-50 H Ur Squamous Epith Cells 6-10 Urine Bacteria None Seen Hyaline Casts 0-2 Digoxin Influenza Type A (PCR) NEGATIVE Influenza Type B (PCR) NEGATIVE RSV RNA Qual (PCR) NEGATIVE SARS-CoV-2 RNA (RT-PCR) NEGATIVE 07/15/23 07/16/23 15:59 09:12 WBC 6.7 RBC 3.86 L Hgb 12.8 Hct 37.5 MCV 97.2 MCH 33.2 H MCHC 34.1 RDW 12.6 Plt Count 167 D MPV 9.2 L Immature Gran % (Auto) 0.3 Neut % (Auto) 69.4 Lymph % (Auto) 19.5 L [place] % (Auto) 8.8 Eos % (Auto) 1.3 Baso % (Auto) 0.7 Lymph # (Auto) 1.3 [place] # (Auto) 0.6 Eos # (Auto) 0.1 Baso # (Auto) 0.1 Abs Immat Gran (auto) 0.02 Absolute Neuts (auto) 4.7 Absolute Nucleated RBC 0.000 Nucleated RBC % (auto) 0.0 PT INR APTT Sodium 141 Potassium 4.1 Chloride 111 H Carbon Dioxide 21 L Anion Gap 13 BUN 41 H Creatinine 1.39 Estim Creat Clear Calc 34.1 Estimated GFR 37 Random Glucose 207 H Calcium 8.8 D Magnesium Total Bilirubin 1.2 H Direct Bilirubin 0.4 AST 18 ALT 12 Alkaline Phosphatase 62 Troponin I High Sens Total Protein 6.6 Albumin 3.8 Lipase Urine Color Urine Appearance Urine pH Ur Specific Lyon Urine Protein Urine Glucose (UA) Urine Ketones Urine Blood Urine Nitrite Ur Leukocyte Esterase Urine RBC Urine WBC Ur Squamous Epith Cells Urine Bacteria Hyaline Casts Digoxin 2.1 H* 1.4 Influenza Type A (PCR) Influenza Type B (PCR) RSV RNA Qual (PCR) SARS-CoV-2 RNA (RT-PCR) Discharge Plan Discharge Anticipated Discharge Date/Time: 07/16/23 11:27 Patient Disposition: Home, Self-Care Discharge Diagnosis: juan m, dig tox Referrals: Yair Huff MD [Primary Care Provider] - 1 Week Discharge Medications: Continued ipratropium-albuterol 0.5 mg-3 mg(2.5 mg base)/3 mL solution for nebulization 3 ml inhalation Q4-6H PRN (Reason: for wheezing) Qty: 180 0RF Xarelto 20 mg tablet 20 mg PO DAILY@1700 Qty: 90 3RF atorvastatin 40 mg tablet 40 mg PO DAILY Qty: 90 3RF Jardiance 10 mg tablet 10 mg PO DAILY Qty: 30 5RF coenzyme Q10 100 mg Tablet 100 mg PO DAILY multivitamin Tablet 1 tab PO DAILY magnesium 250 mg Tablet 250 mg PO BEDTIME vitamin E (dl, acetate) 180 mg (400 unit) Capsule 180 mg PO DAILY ascorbic acid (vitamin C) 500 mg Tablet 1,000 mg PO DAILY omeprazole 40 mg Capsule,Delayed Release(Dr/Ec) 40 mg PO BEDTIME furosemide 40 mg Tablet 40 mg PO DAILY Probiotic 3 billion cell Capsule 3,000 mmu cells PO DAILY Rx Instructions: administer with a meal carvedilol 25 mg Tablet 25 mg PO BIDWM Qty: 60 1RF Protocol: Hold for SBP/HR < HOLD for SBP < : 90 HOLD for HR < : 60 diltiazem HCl [DILT-XR] 240 mg capsule,ext.rel 24h degradable 240 mg PO DAILY Qty: 60 1RF cholecalciferol (vitamin D3) 50 mcg (2,000 unit) Capsule 50 mcg PO DAILY montelukast 10 mg tablet 10 mg PO BEDTIME gabapentin 300 mg capsule 600 mg PO BEDTIME fexofenadine [Shea Allergy] 180 mg tablet 180 mg PO DAILY turmeric 400 mg capsule 400 mg PO DAILY@1200 meloxicam 15 mg tablet 15 mg PO DAILY spironolactone 25 mg tablet 12.5 mg PO DAILY Discharge Orders: Discharge Order (Routine); Ordered 07/16/23 Ordered By: Pradip Bianchi Diet: Advance to usual diet Activity on Discharge: As tolerated Stand Alone Forms: Patient Portal Discharge page Care Plan Goals: recovery Health Concerns: dig tox Plan of Treatment: stop digoxin Assessment: see above
--- NOTE | 2023-07-16 11:40 | MHC.CM.PN ---
Patient has been medically cleared for dc to home today, self care.
[2023-07-16 12:00] VITALS: BP 133/73; PULSE 60; RESP 19; O2SAT 98
== END 2023-07-16 13:12 | disposition home or self-care (01) | DRG 683 ==
LOC: HO.ED 17:58 → HO.EDOVER 18:49
PROVIDERS: Physician Assistant Medical; Admitting Provider Physician Assistant; Emergency Provider Emergency Medicine; PCP Family Medicine; Visit Provider Internal Medicine
DX: N17.9 Acute kidney failure, unspecified (principal); I50.32 Chronic diastolic (congestive) heart failure; I48.0 Paroxysmal atrial fibrillation; E78.5 Hyperlipidemia, unspecified; I25.10 Atherosclerotic heart disease of native coronary artery without angina pectoris; E86.1 Hypovolemia; I27.20 Pulmonary hypertension, unspecified; T46.0X5A Adverse effect of cardiac-stimulant glycosides and drugs of similar action, initial encounter; Z20.822 Contact with and (suspected) exposure to COVID-19; Z79.01 Long term (current) use of anticoagulants; Z79.899 Other long term (current) drug therapy
CPT/HCPCS: 0241U; 36415; 71045; 76705; 80048; 80076; 80162; 81001; 83690; 83735; 84484; 85025; 85610; 85730; 87040; 87086; 93005; 99285; J0456; J0696

== ENCOUNTER → 2023-07-15 09:43 | Outpatient (BNV) | payer MEDICARE, SELFPAY | PROVIDERS: Emergency Provider Emergency Medicine; PCP Family Medicine; Visit Provider Internal Medicine | DX: R94.31 Abnormal electrocardiogram [ECG] [EKG] (principal) | CPT/HCPCS: 93010 ==

== ENCOUNTER → 2023-07-15 18:42 | Outpatient (BNV) | payer MEDICARE, SELFPAY | PROVIDERS: Admitting Provider Physician Assistant; Emergency Provider Emergency Medicine; PCP Family Medicine; Visit Provider Physician Assistant | DX: R11.2 Nausea with vomiting, unspecified (principal); T46.0X1A Poisoning by cardiac-stimulant glycosides and drugs of similar action, accidental (unintentional), initial encounter; N17.9 Acute kidney failure, unspecified | CPT/HCPCS: 99223; 99239 ==

== ENCOUNTER 2023-07-29 09:03 | Outpatient (REF) | payer MEDICARE, SELFPAY ==
[2023-07-29 09:19] LABS: MANUAL DIFF FLAG NO
[2023-07-29 09:50] LABS: Basophils Percent Auto 0.7 % (0-2); Eosinophils Absolute Auto 0.2 X10*3/uL (0.0-0.4); Hematocrit 38.9 % (37.0-47.0); Hemoglobin 12.7 g/dl (12.0-16.0); Imm Gran Abs Auto 0.05 X10*3/uL (0.00-0.03); Imm Gran Pct Auto 0.9 % (0.0-0.4); Lymphocytes Absolute Auto 1.1 X10*3/uL (1.2-4.9); Lymphocytes Percent Auto 19.4 % (20-40); Mean Corpuscular HGB Conc 32.6 g/dl (31.0-35.0); Mean Corpuscular Hemoglobin 31.9 pg (27.0-33.0); Mean Corpuscular Volume 97.7 fL (80.0-98.0); Mean Platelet Volume 8.9 fL (9.4-12.3); Monocytes Absolute Auto 0.5 X10*3/uL (0.1-1.2); Neutrophils Absolute Auto 3.8 x10*3/uL (2.0-8.3); Platelet Count 193 X10*3/uL (160-400); Red Blood Count 3.98 X10*6/uL (4.20-5.50); Red Cell Distribution Width 12.1 % (11.0-16.0); White Blood Count 5.8 X10*3/uL (4.8-10.8)
[2023-07-29 10:44] LABS: Alanine Aminotransferase 22 U/L (0-31); Alkaline Phosphatase 70 U/L (39-117); Anion Gap 15 (12-20); Aspartate Amino Transferase 22 U/L (5-31); Bilirubin Total 0.7 mg/dL (0.0-1.0); Blood Urea Nitrogen 33 mg/dL (9-16); Calcium 9.3 mg/dL (8.4-10.2); Carbon Dioxide 19 mmol/L (22-29); Chloride 110 mmol/L (96-108); Estimated Glomerular Filt Rate 33; Glucose Random 154 mg/dL (60-115); Potassium 5.1 mmol/L (3.3-5.1); Sodium 139 mmol/L (135-145); Total Protein 6.8 g/dL (6.5-8.0)
== END 2023-07-29 09:04 | disposition home or self-care (01) ==
LOC: HO.LAB 09:03
PROVIDERS: PCP Family Medicine; Visit Provider Family Medicine
DX: I48.0 Paroxysmal atrial fibrillation (principal); I10 Essential (primary) hypertension; R53.83 Other fatigue
CPT/HCPCS: 36415; 80053; 85025

== ENCOUNTER 2023-08-17 15:17 | Outpatient (REF) | payer MEDICARE, SELFPAY ==
[2023-08-17 17:41] LABS: Anion Gap 16 (12-20); Blood Urea Nitrogen 43 mg/dL (9-16); Calcium 9.7 mg/dL (8.4-10.2); Carbon Dioxide 22 mmol/L (22-29); Chloride 107 mmol/L (96-108); Estimated Glomerular Filt Rate 26; Glucose Random 115 mg/dL (60-115); Potassium 5.3 mmol/L (3.3-5.1); Sodium 140 mmol/L (135-145)
== END 2023-08-17 15:18 | disposition home or self-care (01) ==
LOC: HO.LAB 15:17
PROVIDERS: PCP Family Medicine; Visit Provider Internal Medicine Cardiovascular Disease
DX: I48.0 Paroxysmal atrial fibrillation (principal); I11.0 Hypertensive heart disease with heart failure; I50.32 Chronic diastolic (congestive) heart failure
CPT/HCPCS: 36415; 80048; 93005; 99212

== ENCOUNTER 2023-08-17 15:17 | Outpatient (AMB) | payer MEDICARE, SELFPAY ==
--- NOTE | 2023-08-17 15:24 | MHC.OFFVIS ---
Intake Vital Signs 08/17/23 15:26 Height 5 ft 5 in Weight 185 lb 3.013 oz BMI 30.8 BP 122/80 Blood Pressure Location Lt brachial Position Sitting Pulse 60 Intake Visit Reasons: follow-up with ekg Intake Note: Follow-up with ekg c/o fatigue but believes out of Afib [employer] Required: No Allergies aspirin [ASPIRIN] Allergy (Unknown, Verified 04/06/23 10:34) RASH Sulfa (Sulfonamide Antibiotics) [SULFA (SULFONAMIDE ANTIBIOTICS)] Allergy (Unknown, Verified 04/06/23 10:34) RASH flecainide Adverse Reaction (Intermediate, Verified 04/06/23 10:34) Dizziness amiodarone Adverse Reaction (Mild, Verified 04/06/23 10:34) Dizziness adhesives Adverse Reaction (Uncoded 04/06/23 10:34) Unknown Medication List - Last Reconciled 08/17/23 by Franco Brennan MD ascorbic acid (vitamin C) 1,000 mg PO DAILY atorvastatin 40 mg PO DAILY carvedilol 25 mg See Protocol PO BIDWM cholecalciferol (vitamin D3) 50 mcg PO DAILY coenzyme Q10 100 mg PO DAILY diltiazem HCl ER (DILT-XR) 240 mg PO DAILY empagliflozin (Jardiance) 10 mg PO DAILY fexofenadine (Shea Allergy) 180 mg PO DAILY furosemide 40 mg PO DAILY gabapentin 600 mg PO BEDTIME ipratropium-albuterol 0.5 mg-3 mg(2.5 mg base)/3 mL 3 mL inhalation Q4-6H PRN lactobacillus combination no.4 (Probiotic) 3,000 mmu cells PO DAILY magnesium 250 mg PO BEDTIME meloxicam 15 mg PO DAILY montelukast 10 mg PO BEDTIME multivitamin 1 tab PO DAILY omeprazole 40 mg PO BEDTIME rivaroxaban (Xarelto) 20 mg PO DAILY@1700 spironolactone 12.5 mg PO DAILY turmeric 400 mg PO DAILY@1200 vitamin E (dl, acetate) 180 mg PO DAILY HPI HPI Comments History of Present Illness Details Chiquita comes for follow-up. She has not had any recurrent episodes of atrial fibrillation. However she complains of exertional shortness of breath which is chronic as well as fatigue. She denies any lightheadedness, syncope. No exertional chest pain. No orthopnea, PND, leg edema, abdominal distension or any other heart failure symptoms. No bleeding issues or neurologic events. [facility] Medical History Preoperative cardiovascular examination NSTEMI (non-ST elevated myocardial infarction) Atrial fibrillation with RVR Pulmonary hypertension Paroxysmal atrial fibrillation Chronic heart failure with preserved ejection fraction (HFpEF) Chronic heart failure with preserved ejection fraction (HFpEF) Cardiomyopathy Pulmonary hypertension Diastolic dysfunction History of cardiomyopathy HTN (hypertension) Paroxysmal atrial fibrillation History of cardioversion Surgical History S/P cardiac catheterization Hx of total hip arthroplasty Hx of cardiac cath Hx of hand surgery History of back surgery Family History Father Cancer Mother Stroke Brother Atrial fibrillation Sister Cardiovascular disease Atrial fibrillation Social History Household Members: None Housing: House Do you presently have visiting nurse or other home services: No Unable to assess alcohol history related to: Unknown Alcohol intake: former Patient Tobacco Use Status: Never used Tobacco Second Hand Smoke Exposure: No Advance Directives Date on File: 12/18/22 service: No Current occupational status: retired Review of Systems Const Denies chills, Denies fatigue, Denies fever(s), Denies frequent falls, Denies weakness, Denies weight gain and Denies weight loss ENT Denies dizziness Card Denies chest pain, Denies leg edema, Denies lightheadedness, Denies palpitations, Denies dyspnea, Denies dyspnea on exertion, Denies orthopnea and Denies other (loss of consciousness) Resp Denies cough, Denies dyspnea and Denies dyspnea on exertion GI Denies hematochezia and Denies change in stool character Musc Denies abnormal gait, Denies muscle weakness, Denies numbness, Denies radiating pain into limb and Denies tingling Neuro Denies abnormal gait, Denies dizziness, Denies frequent falls, Denies numbness, Denies tingling and Denies weakness Endo Denies fatigue and Denies palpitations Physical Exam Vital Signs: Last Vital Signs Pulse 60 08/17/23 15:26 BP 122/80 08/17/23 15:26 BMI result Body Mass Index 30.8 Const General: cooperative, comfortable, no acute distress, alert and awake Nutritional Appearance: overweight Orientation/consciousness: patient oriented x3 Limitations: other limitations (In a stretcher) Neck Neck: Yes trachea midline, Yes supple and Yes no JVD Chest Chest palpation & inspection: abnormal inspection of the chest kyphotic and scoliotic Resp Effort & Inspection: normal respiratory effort Auscultation: clear to auscultation bilaterally and diminished lung sounds Cardio Jugular venous distension: no JVD Palpation: normal PMI Rate: regular rate Rhythm: regular rhythm Heart sounds: S1 normal heart sound present and S2 normal heart sound present GI Auscultation: normal bowel sounds Skin General skin exam: no rashes or lesions noted Neuro General: patient oriented x3 and no focal motor deficits Extrem General: Yes no clubbing, cyanosis or edema Psych Appearance: grossly normal Office Procedures EKG Details: EKG shows normal sinus rhythm with normal EKG [id number], Complete Assessment & Plan Assessment & Plan (1) Paroxysmal atrial fibrillation: Code(s): I48.0 - Paroxysmal atrial fibrillation Plan: Patient with difficult control atrial fibrillation. Has remained in sinus rhythm without any antiarrhythmic drug over the last few months. Symptoms have improved although she continues to have symptoms of shortness of breath and fatigue. Although she is maintain rhythm and has done better clinically with rhythm control approach. Although it is difficult to continue to pursue rhythm control approach due to multiple ablation in the past and multiple intolerance to antiarrhythmic drugs in the past. Likely if she has recurrent atrial fibrillation will pursue rate control and if rate control is difficult will pursue AV estiven ablation. This has been discussed with in the past. Also has been discussed about epicardial ablation although she has not too excited about it. Difficulty in management of atrial fibrillation was discussed and she understands. Continue full oral anticoagulation. Avoidance of stimulants was discussed. Continue risk factor modification with control of her high blood pressure. Overall likelihood of maintaining long-term rhythm control is very low. (2) Chronic heart failure with preserved ejection fraction (HFpEF): Code(s): I50.32 - Chronic diastolic (congestive) heart failure Plan: Heart failure with preserved ejection fraction with multiple comorbidities including pulmonary insufficiency from thoracic cage abnormality, diastolic dysfunction, pulmonary hypertension, difficult control atrial fibrillation. Her shortness of breath fatigue does not appear to be secondary to atrial fibrillation at this point in time. Most likely related to deconditioning and reduced pulmonary capacity and diastolic dysfunction. She is encouraged to continue to participate in physical activity as tolerated. Clinically today appears to be euvolemic and well compensated. Continue current diuretic tima. Daily weight monitoring avoidance of salt loading was discussed. Continue monitor renal function closely given her chronic kidney disease. Continue current aggressive control blood pressure which is well optimized on dual therapy. Overall 40 minutes was spent in managing and discussing the care. Thank you for allowing me to partake in the care Orders: Orders Basic Metabolic Panel 08/17/23 I48.0 - Paroxysmal atrial fibrillation Coding Level of Care Code Est Pt Level 5 (96105) Diagnoses Paroxysmal atrial fibrillation I48.0 Chronic heart failure with preserved ejection fraction (HFpEF) I50.32 CPT Codes EKG - CPT: [id number], Complete ([id number])
[2023-08-17 15:26] VITALS: BP 122/80; PULSE 60; BMI 30.8
== END 2023-08-17 15:54 | disposition home or self-care (01) ==
PROVIDERS: PCP Family Medicine; Visit Provider Internal Medicine Cardiovascular Disease
DX: I48.0 Paroxysmal atrial fibrillation (principal); I50.32 Chronic diastolic (congestive) heart failure
CPT/HCPCS: 93010; 99215

== ENCOUNTER 2023-09-03 16:59 | Inpatient (IN) | payer MEDICARE, SELFPAY ==
--- NOTE | 2023-09-03 | ECG_ITS ---
Test Reason : A FIB Blood Pressure : / mmHG Vent. Rate : 124 BPM Atrial Rate : 000 BPM P-R Int : 000 ms QRS Dur : 082 ms QT Int : 320 ms P-R-T Axes : 000 029 -28 degrees QTc Int : 459 ms Atrial fibrillation with rapid ventricular response Nonspecific ST and T wave abnormality Abnormal ECG When compared with ECG of 15-JUL-2023 10:30, Atrial fibrillation has replaced Sinus rhythm Vent. rate has increased BY 64 BPM Nonspecific T wave abnormality, worse in Lateral leads Referred By: Generic ED Physician Electronically Signed By:Rickie Allison
--- NOTE | ~2023-09-03 | XR_ITS ---
EXAMINATION: XR CHEST CLINICAL INFORMATION: Hypoxia, cough COMPARISON: Frontal view 07/15/23 TECHNIQUE: Supine frontal portable view of the chest was obtained. FINDINGS: Devices overlie the patient. Faint calcification of aortic arch. Moderate globular cardiac enlargement similar to previous. The central vessels are prominent but there is no edema. There is no dense focal pneumonia. Slight hazy density in the region of the left lateral costophrenic sulcus. No convincing suspicious abnormality in the right midlung. There is biapical thickening. Limited bone detail XR/XR chest 1V IMPRESSION: No definite acute focal pneumonia or edema
--- NOTE | 2023-09-03 08:12 | ECG_ITS ---
Test Reason : AFIB RVR Blood Pressure : / mmHG Vent. Rate : 097 BPM Atrial Rate : 000 BPM P-R Int : 000 ms QRS Dur : 084 ms QT Int : 342 ms P-R-T Axes : 000 039 002 degrees QTc Int : 434 ms Atrial fibrillation Abnormal ECG When compared with ECG of 03-SEP-2023 17:09, Nonspecific T wave abnormality no longer evident in Lateral leads Referred By: Lino Parker Electronically Signed By:Rickie Allison
[2023-09-03 17:02] VITALS: BP 144/90; PULSE 140; RESP 20; TEMP 36.5; O2SAT 94; BMI 22.1
[2023-09-03 17:28] LABS: MANUAL DIFF FLAG NO
[2023-09-03 17:31] LABS: Basophils Percent Auto 0.3 % (0-2); Eosinophils Percent Auto 0.1 % (0-4); Hematocrit 39.4 % (37.0-47.0); Hemoglobin 13.1 g/dl (12.0-16.0); Imm Gran Abs Auto 0.04 X10*3/uL (0.00-0.03); Imm Gran Pct Auto 0.5 % (0.0-0.4); Lymphocytes Absolute Auto 0.6 X10*3/uL (1.2-4.9); Lymphocytes Percent Auto 6.9 % (20-40); Mean Corpuscular HGB Conc 33.2 g/dl (31.0-35.0); Mean Corpuscular Hemoglobin 31.7 pg (27.0-33.0); Mean Corpuscular Volume 95.4 fL (80.0-98.0); Mean Platelet Volume 8.8 fL (9.4-12.3); Monocytes Absolute Auto 1.2 X10*3/uL (0.1-1.2); Monocytes Percent Auto 13.8 % (2-11); Neutrophils Absolute Auto 6.7 x10*3/uL (2.0-8.3); Neutrophils Percent Auto 78.4 % (45-73); Platelet Count 166 X10*3/uL (160-400); Red Blood Count 4.13 X10*6/uL (4.20-5.50); White Blood Count 8.6 X10*3/uL (4.8-10.8)
[2023-09-03 17:40] LABS: COVID-19 Test Positive (Negative); IDNOW Serial# 08D9AD1C
[2023-09-03 17:40] LABS: INTERNATIONAL NORM RATIO 1.2 (0.9-1.1); Prothrombin Time 14.7 SEC (11.1-13.3)
[2023-09-03 17:43] LABS: Partial Thromboplastin Time 32.1 SEC (26.0-36.4)
[2023-09-03 17:50] LABS: Alanine Aminotransferase 17 U/L (0-31); Albumin Level 4.3 g/dL (3.5-5.0); Alkaline Phosphatase 68 U/L (39-117); Anion Gap 17 (12-20); Aspartate Amino Transferase 21 U/L (5-31); Bilirubin Total 1.2 mg/dL (0.0-1.0); Blood Urea Nitrogen 23 mg/dL (9-16); Calcium 9.4 mg/dL (8.4-10.2); Carbon Dioxide 19 mmol/L (22-29); Chloride 109 mmol/L (96-108); Creatinine Clr Calc Pharmacy 32.8; Estimated Glomerular Filt Rate 46; Glucose Random 137 mg/dL (60-115); Lipase 12 U/L (8-78); Potassium 3.8 mmol/L (3.3-5.1); Sodium 141 mmol/L (135-145); Total Protein 7.4 g/dL (6.5-8.0)
[2023-09-03 17:58] LABS: IDNOW Serial# 9DB6401D; Influenza A Negative (Negative); Influenza B2 Negative (Negative)
[2023-09-03 17:58] LABS: Troponin-I High Sensitivity 12.3 ng/L (<3.5-17.0)
--- NOTE | 2023-09-03 18:16 | ED.GENADULT ---
HPI - General Adult General Chief complaint: Arrhythmia/Palpitations Stated complaint: afib Time Seen by Provider: 09/03/23 17:45 Source: patient, family (Patient's daughter) and RN notes reviewed Mode of arrival: ambulatory Limitations: no limitations History of Present Illness HPI narrative: 78-year-old female with past medical history significant for atrial fibrillation maintained on Xarelto, chronic heart failure with preserved ejection fraction, left proximal humerus fracture presents for evaluation of fevers Patient reports that she felt well yesterday. She states that last night she started to feel unwell with body aches and malaise She woke this morning vomiting with a fever She now feels as though her heart is racing Patient states that she was able to take her carvedilol and diltiazem this morning without vomiting She states that she was unable to keep down any of her other medications On arrival to the ED she is in atrial fibrillation with a heart rate as fast as 145 She denies any shortness of breath but does endorse a dry cough Related Data Home Medications Medication Instructions Recorded Confirmed montelukast 10 mg tablet 10 mg PO BEDTIME 05/16/20 08/17/23 fexofenadine 180 mg tablet 180 mg PO DAILY 06/21/21 08/17/23 (Shea Allergy) coenzyme Q10 100 mg tablet 100 mg PO DAILY 07/28/21 08/17/23 magnesium 250 mg tablet 250 mg PO BEDTIME 07/28/21 08/17/23 multivitamin 1 tab PO DAILY 07/28/21 08/17/23 vitamin E (dl, acetate) 180 mg 180 mg PO DAILY 07/28/22 08/17/23 (400 unit) capsule ascorbic acid (vitamin C) 500 mg 1,000 mg PO DAILY 09/26/22 08/17/23 tablet furosemide 40 mg tablet 40 mg PO DAILY 09/26/22 08/17/23 omeprazole 40 mg capsule,delayed 40 mg PO BEDTIME 09/26/22 08/17/23 release turmeric 400 mg capsule 400 mg PO DAILY@1200 11/03/22 08/17/23 cholecalciferol (vitamin D3) 50 50 mcg PO DAILY 12/18/22 08/17/23 mcg (2,000 unit) capsule gabapentin 300 mg capsule 600 mg PO BEDTIME 04/06/23 08/17/23 meloxicam 15 mg tablet 15 mg PO DAILY 04/06/23 08/17/23 lactobacillus combination no.4 3 3,000 mmu cells PO DAILY 07/06/23 08/17/23 billion cell capsule (Probiotic) Previous Rx's Medication Instructions Recorded ipratropium 0.5 mg-albuterol 3 mg 3 ml inhalation Q4-6H PRN for 12/02/22 (2.5 mg base)/3 mL nebulization wheezing #180 mL soln atorvastatin 40 mg tablet 40 mg PO DAILY #90 tabs 04/27/23 carvedilol 25 mg tablet 25 mg PO BIDWM #60 tabs 07/08/23 diltiazem HCl 240 mg 240 mg PO DAILY #60 caps 07/08/23 capsule,extended release 24 hr, controlled (DILT-XR) rivaroxaban 15 mg tablet 15 mg PO DAILY@1700 #90 tabs 08/17/23 empagliflozin 10 mg tablet 10 mg PO DAILY 90 days #90 tabs 08/24/23 (Jardiance) Allergies Allergy/AdvReac Type Severity Reaction Status Date / Time aspirin [ASPIRIN] Allergy Unknown RASH Verified 09/03/23 17:04 Sulfa (Sulfonamide Allergy Unknown RASH Verified 09/03/23 17:04 Antibiotics) [SULFA (SULFONAMIDE ANTIBIOTICS)] flecainide AdvReac Intermediate Dizziness Verified 09/03/23 17:04 amiodarone AdvReac Mild Dizziness Verified 09/03/23 17:04 Digitalis Glycosides AdvReac Confusion Verified 09/03/23 17:04 adhesives AdvReac Unknown Uncoded 04/06/23 10:34 Review of Systems Constitutional: Constitutional: Reports body ache(s), Reports chills, Reports fever(s), Reports malaise and Reports weakness Eyes: Eyes: Denies blurry vision ENT: Denies sore throat Cardiovascular: Cardiovascular: Denies chest pain and Denies dyspnea Respiratory: Respiratory: Reports cough and Denies dyspnea Gastrointestinal: Gastrointestinal: Denies abdominal pain, Reports nausea and Reports vomiting Musculoskeletal: Musculoskeletal: Denies back pain Integumentary/Breasts: Skin/Breast: Denies rash Neurologic: Reports weakness PMFSH Past Medical History Medical History Preoperative cardiovascular examination NSTEMI (non-ST elevated myocardial infarction) Atrial fibrillation with RVR Pulmonary hypertension Paroxysmal atrial fibrillation Chronic heart failure with preserved ejection fraction (HFpEF) Chronic heart failure with preserved ejection fraction (HFpEF) Cardiomyopathy Pulmonary hypertension Diastolic dysfunction History of cardiomyopathy HTN (hypertension) Paroxysmal atrial fibrillation History of cardioversion Surgical History S/P cardiac catheterization Hx of total hip arthroplasty Hx of cardiac cath Hx of hand surgery History of back surgery Family History Family History Father Cancer Mother Stroke Brother Atrial fibrillation Sister Cardiovascular disease Atrial fibrillation Social History Social History Household Members: None Housing: House Do you presently have visiting nurse or other home services: No Unable to assess alcohol history related to: Unknown Alcohol intake: former Patient Tobacco Use Status: Never used Tobacco Smoked in Last 30 Days: No Second Hand Smoke Exposure: No Use of substances other than those prescribed or required for medical reasons: No Advance Directives: Yes Advance Directives on File: Yes Advance Directives Date on File: 12/18/22 service: No Current occupational status: retired Physical Exam ED Vital Signs: Vital Signs - 24 hr 09/03/23 17:02 09/03/23 18:51 09/03/23 18:52 Temperature 97.7 F 97.8 F Pulse Rate 140 H 130 H Respiratory Rate 20 16 Blood Pressure 144/90 H 113/60 Pulse Oximetry 94 88 L 94 Oxygen Delivery Method Room Air Room Air Room Air BMI result Body Mass Index 22.1 Const General: healthy appearing, comfortable, no acute distress, alert and awake Nutritional Appearance: well nourished Orientation/consciousness: patient oriented x3 HENMT Head: Yes normocephalic and Yes atraumatic Eyes Eyelids: Yes eyelids normal Conjunctivae: conjunctivae normal Sclerae: sclerae normal Corneas: corneas normal Pupils: Equal, round and reactive pupils present EOM: EOMs intact bilaterally Neck Neck: Yes full ROM Resp Effort & Inspection: normal respiratory effort, able to speak in complete sentences, no audible wheezes and not labored Auscultation: clear to auscultation bilaterally Cardio Rate: tachycardic Rhythm: abnormal rhythm GI Inspection: No distended Palpation (GI): Soft to palpation, not firm, nontender, no guarding and not rigid Skin General skin exam: elasticity normal Neuro General: patient oriented x3 Cranial nerves: Yes Equal, round and reactive pupils present and Yes Bilaterally intact EOM present Cognition (Neuro): normal cognition Extrem Other: Moving all extremities well without any obvious deformities Course Reevaluation(s) Reevaluation #1: Patient is now rate controlled, however she was found to be hypoxic on room air to 88% per nursing staff. Given the COVID-19 diagnosis, feel that she required admission to the hospital. I ordered a chest x-ray would not show any significant infiltrates or effusions. She is anticoagulated on Xarelto, so low suspicion for PE. Will discuss with the hospitalist for admission Time: 20:32 Medications Administered Discontinued Medications Generic Name Dose Route Start Last Admin Trade Name Freq PRN Reason Stop Dose Admin Dexamethasone Sodium Phosphate 6 mg 09/03/23 19:40 09/03/23 19:55 Dexamethasone Sod Phosphate 4 Mg/Ml Vial IVPUSH 09/03/23 19:41 6 mg ONCE ONE Administration Diltiazem HCl 20 mg 09/03/23 18:02 09/03/23 18:51 Diltiazem Hcl 50 Mg/10 Ml Vial IVPUSH 09/03/23 18:03 20 mg STAT STA Administration Diltiazem HCl 60 mg 09/03/23 18:02 09/03/23 19:22 Diltiazem Hcl 60 Mg Tablet PO 09/03/23 18:03 60 mg ONCE ONE Administration Protocol Sodium Chloride 1,000 mls @ 999 mls/hr 09/03/23 18:15 09/03/23 18:52 Ns IV 09/03/23 19:15 999 mls/hr .Q1H1M ROSENDA Administration Ondansetron HCl 4 mg 09/03/23 18:02 09/03/23 18:51 Ondansetron Hcl 4 Mg/2 Ml Vial IVPUSH 09/03/23 18:03 4 mg ONCE ONE Administration Medical Decision Making Medical Decision Making MDM Narrative: 78-year-old female presents for evaluation of fever, body aches rapid heart rate. She appears to be in AFib with RVR confirmed by EKG. The patient is found to be COVID positive which explains her fevers, vomiting and weakness. She is afebrile, no hypoxia, shortness of breath or tachypnea. The virus is likely causing the rapid AFib. If we can get her heart rate under control the patient can likely be safely discharged. However if you are unable to control her rate she may require admission Differential Diagnosis Differential Diagnoses: The differential diagnosis associated with the presentation includes Rapid AFib Sepsis COVID-19 Arrhythmia Tachycardia Dehydration Vomiting Admission/Observation Consideration of admission/observation: Escalation of care including admission/observation considered Lab Data MDM Lab Attestation statement: I reviewed the patient's lab results. No leukocytosis or anemia. Normal platelet count. Patient's sodium potassium within normal limits. CO2 is slightly low at 19, chloride of 109. BUN slightly elevated 23 with a creatinine of 1.15 within normal limits. Patient's glucose is 137 but this was a random drawer. 09/03/23 17:21 09/03/23 17:21 Labs: Lab Results 09/03/23 09/03/23 Range/Units 17:17 17:21 WBC 8.6 (4.8-10.8) X10*3/uL RBC 4.13 L (4.20-5.50) X10*6/uL Hgb 13.1 (12.0-16.0) g/dl Hct 39.4 (37.0-47.0) % MCV 95.4 (80.0-98.0) fL MCH 31.7 (27.0-33.0) pg MCHC 33.2 (31.0-35.0) g/dl RDW 12.0 (11.0-16.0) % Plt Count 166 (160-400) X10*3/uL MPV 8.8 L (9.4-12.3) fL Immature Gran % (Auto) 0.5 H (0.0-0.4) % Neut % (Auto) 78.4 H (45-73) % Lymph % (Auto) 6.9 L (20-40) % [place] % (Auto) 13.8 H (2-11) % Eos % (Auto) 0.1 (0-4) % Baso % (Auto) 0.3 (0-2) % Lymph # (Auto) 0.6 L (1.2-4.9) X10*3/uL [place] # (Auto) 1.2 (0.1-1.2) X10*3/uL Eos # (Auto) 0.0 (0.0-0.4) X10*3/uL Baso # (Auto) 0.0 (0.0-0.2) X10*3/uL Abs Immat Gran (auto) 0.04 H (0.00-0.03) X10*3/uL Absolute Neuts (auto) 6.7 (2.0-8.3) x10*3/uL Absolute Nucleated RBC 0.000 (0.0-0.012) X10*3/uL Nucleated RBC % (auto) 0.0 (0.0-0.2) /100WBC PT 14.7 H D (11.1-13.3) SEC INR 1.2 H (0.9-1.1) APTT 32.1 (26.0-36.4) SEC Sodium 141 (135-145) mmol/L Potassium 3.8 (3.3-5.1) mmol/L Chloride 109 H (96-108) mmol/L Carbon Dioxide 19 L (22-29) mmol/L Anion Gap 17 (12-20) BUN 23 H (9-16) mg/dL Creatinine 1.15 (0.5-1.4) mg/dL Estim Creat Clear Calc 32.8 Estimated GFR 46 Random Glucose 137 H (60-115) mg/dL Calcium 9.4 (8.4-10.2) mg/dL Total Bilirubin 1.2 H (0.0-1.0) mg/dL AST 21 (5-31) U/L ALT 17 (0-31) U/L Alkaline Phosphatase 68 (39-117) U/L Troponin I High Sens 12.3 (<3.5-17.0) ng/L Total Protein 7.4 (6.5-8.0) g/dL Albumin 4.3 (3.5-5.0) g/dL Lipase 12 (8-78) U/L COVID-19 (KIANA) Positive A (Negative) COVID-19 Clin Com See Note Influenza Type A (CARMINE) Negative (Negative) Influenza Type B (CARMINE) Negative (Negative) Influenza A & B Note See Note Independent Interpretation I performed an independent interpretation of an: Plain X-Ray (No infiltrates) Discharge Plan Discharge Clinical Impression: Atrial fibrillation with rapid ventricular response, COVID-19 Patient Disposition: Admitted As Inpatient Prescriptions: No Action ipratropium-albuterol 0.5 mg-3 mg(2.5 mg base)/3 mL solution for nebulization 3 ml inhalation Q4-6H PRN (Reason: for wheezing) Qty: 180 0RF atorvastatin 40 mg tablet 40 mg PO DAILY Qty: 90 3RF Xarelto 15 mg tablet 15 mg PO DAILY@1700 Qty: 90 3RF Rx Instructions: Dosing changed from 20 mg to 15 mg daily Jardiance 10 mg tablet 10 mg PO DAILY 90 Days Qty: 90 3RF coenzyme Q10 100 mg Tablet 100 mg PO DAILY multivitamin Tablet 1 tab PO DAILY magnesium 250 mg Tablet 250 mg PO BEDTIME vitamin E (dl, acetate) 180 mg (400 unit) Capsule 180 mg PO DAILY ascorbic acid (vitamin C) 500 mg Tablet 1,000 mg PO DAILY omeprazole 40 mg Capsule,Delayed Release(Dr/Ec) 40 mg PO BEDTIME furosemide 40 mg Tablet 40 mg PO DAILY Probiotic 3 billion cell Capsule 3,000 mmu cells PO DAILY Rx Instructions: administer with a meal carvedilol 25 mg Tablet 25 mg PO BIDWM Qty: 60 1RF Protocol: Hold for SBP/HR < HOLD for SBP < : 90 HOLD for HR < : 60 diltiazem HCl [DILT-XR] 240 mg capsule,ext.rel 24h degradable 240 mg PO DAILY Qty: 60 1RF cholecalciferol (vitamin D3) 50 mcg (2,000 unit) Capsule 50 mcg PO DAILY montelukast 10 mg tablet 10 mg PO BEDTIME gabapentin 300 mg capsule 600 mg PO BEDTIME fexofenadine [Shea Allergy] 180 mg tablet 180 mg PO DAILY turmeric 400 mg capsule 400 mg PO DAILY@1200 meloxicam 15 mg tablet 15 mg PO DAILY
[2023-09-03 18:51] VITALS: O2SAT 88
[2023-09-03] MEDS: dilTIAZem HCL 50 MG/10 ML VIAL 20 MG IVPUSH (18:51)
[2023-09-03] MEDS: ondansetron HCL 4 MG/2 ML VIAL IVPUSH (18:51)
[2023-09-03 18:52] VITALS: BP 113/60; PULSE 130; RESP 16; TEMP 36.6; O2SAT 94
[2023-09-03] MEDS: 0.9 % Sodium Chloride 1,000 ML 999 ML IV (18:52)
[2023-09-03] MEDS: dilTIAZem HCL 60 MG TABLET PO (19:22)
[2023-09-03] MEDS: dexAMETHasone sod phosphate 4 MG/ML VIAL 6 MG IVPUSH (19:55)
[2023-09-03 20:36] VITALS: BP 147/66; PULSE 92; RESP 19; TEMP 36.6; O2SAT 89
[2023-09-03 21:29] VITALS: BP 147/66; PULSE 92; RESP 19; TEMP 36.6; O2SAT 92
--- NOTE | 2023-09-03 22:19 | PC.NURSE ---
Patient is refusing remdesivir is afraid its going to interactions with her medications. Dr. Rae notified.
--- NOTE | 2023-09-03 22:35 | PHA.MEDREC ---
Pharmacy Consult ? Medication Reconciliation Pharmacy has completed the medication reconciliation.. Patient had hand written list. Reported it was up to date. Katiana Andrews CPhT
[2023-09-04] VITALS (10 sets, daily range): BP systolic 122–145; BP diastolic 67–80; PULSE 71–107; RESP 13–18; TEMP 36.2–36.8; O2SAT 88–97
--- NOTE | 2023-09-04 | ECG_ITS ---
Test Reason : repeat Blood Pressure : / mmHG Vent. Rate : 075 BPM Atrial Rate : 075 BPM P-R Int : 152 ms QRS Dur : 082 ms QT Int : 376 ms P-R-T Axes : 102 028 040 degrees QTc Int : 419 ms Atrial flutter with 3 to 1 block Abnormal ECG When compared with ECG of 03-SEP-2023 18:31, Atrial flutter has replaced afib Referred By: Buck Tompkins Electronically Signed By:Rickie Allison
[2023-09-04] MEDS: 0.9 % Sodium Chloride Flush 3 ML SYRINGE IVFLUSH ×4 (02:32→21:46)
--- NOTE | 2023-09-04 02:41 | PC.NURSE ---
Pt aox4 resting at the bedside. No apparent distress noted. Reports no pain. VSS. Irregular heart rate, 85-145bpm. [place] text sent to hospitalist.
--- NOTE | 2023-09-04 03:14 | P.HPHOSP_ITS ---
History of Present Illness Date of Service: 09/03/23 Attending physician on admission: Norma Bee Chief Complaint: Palpitations Chiquita Meeks this is a 78 years old woman with past medical history significant for atrial fibrillation on Xarelto, diastolic congestive heart failure and hypertension presents to the emergency department complaining of palpitations, nausea, vomiting and fever that started last night. She denied any associated chest pain, cough, headache and sore throat. She denied any gastrointestinal or genitourinary symptoms. She also has a history of a recent left proximal humerus fracture. She denied tobacco smoking, alcohol abuse or illicit drug use. In the ED, she was found to have tachycardia consistent with atrial fibrillation with rapid ventricular response. Heart rate was in the 140s. Her oxygen saturation was 88% on room air. She is now requiring 4 liters/minute supplemental oxygen. Blood workup is remarkable for mild metabolic acidosis. Creatinine is 1.15. LFTs are normal. There is no leukocytosis. Hemoglobin is normal. Viral testing is positive for COVID-19. CXR showed no definitive acute focal pneumonia or edema. ED tx: Diltiazem 20 mg IV, diltiazem 60 mg p.o., Zofran 4 mg IV, NS 1 L bolus, dexamethasone 6 mg IV. Review of Systems 2 Review of Systems: All 12 systems were reviewed and normal except as noted in HPI. [facility] Medical History Preoperative cardiovascular examination NSTEMI (non-ST elevated myocardial infarction) Atrial fibrillation with RVR Pulmonary hypertension Paroxysmal atrial fibrillation Chronic heart failure with preserved ejection fraction (HFpEF) Chronic heart failure with preserved ejection fraction (HFpEF) Cardiomyopathy Pulmonary hypertension Diastolic dysfunction History of cardiomyopathy HTN (hypertension) Paroxysmal atrial fibrillation History of cardioversion Family History Father Cancer Mother Stroke Brother Atrial fibrillation Sister Cardiovascular disease Atrial fibrillation Surgical History S/P cardiac catheterization Hx of total hip arthroplasty Hx of cardiac cath Hx of hand surgery History of back surgery Social History Household Members: None Housing: House Do you presently have visiting nurse or other home services: No Unable to assess alcohol history related to: Unknown Alcohol intake: former Patient Tobacco Use Status: Never used Tobacco Smoked in Last 30 Days: No Second Hand Smoke Exposure: No Use of substances other than those prescribed or required for medical reasons: No Advance Directives: Yes Advance Directives on File: Yes Advance Directives Date on File: 12/18/22 Nutrition Risks: No Nutritional Risk service: No Current occupational status: retired Meds Allergies Allergy/AdvReac Type Severity Reaction Status Date / Time aspirin [ASPIRIN] Allergy Unknown RASH Verified 09/03/23 17:04 Sulfa (Sulfonamide Allergy Unknown RASH Verified 09/03/23 17:04 Antibiotics) [SULFA (SULFONAMIDE ANTIBIOTICS)] flecainide AdvReac Intermediate Dizziness Verified 09/03/23 17:04 amiodarone AdvReac Mild Dizziness Verified 09/03/23 17:04 Digitalis Glycosides AdvReac Confusion Verified 09/03/23 17:04 adhesives AdvReac Unknown Uncoded 04/06/23 10:34 Active Medications: Current Medications Acetaminophen (Acetaminophen 325 Mg Tablet) 650 mg PO Q6H PRN PRN Reason: Pain, Mild (Pain Scale 1-3) Albuterol/Ipratropium (Albuterol/Iprat 2.5/0.5mg 3 Ml Ampul.Neb) 3 ml INHALE Q4H PRN PRN Reason: Shortness of Breath/Wheezing Ascorbic Acid (Ascorbic Acid 500 Mg Tablet) 1,000 mg PO DAILY ROSENDA Atorvastatin Calcium (Atorvastatin Calcium 40 Mg Tablet) 40 mg PO DAILY ROSENDA Carvedilol (Carvedilol 25 Mg Tablet) 25 mg PO BIDWM ROSENDA; Protocol Dexamethasone Sodium Phosphate (Dexamethasone Sod Phosphate 4 Mg/Ml Vial) 6 mg IVPUSH DAILY ROSENDA Diltiazem HCl (Diltiazem Hcl Cd 240 Mg Cap.Er.Deg) 240 mg PO DAILY ROSENDA; Protocol Empagliflozin (Empagliflozin 10 Mg Tablet) 10 mg PO DAILY ROSENDA Furosemide (Furosemide 40 Mg Tablet) 40 mg PO DAILY ROSENDA; Protocol Gabapentin (Gabapentin 300 Mg Capsule) 600 mg PO BEDTIME ROSENDA Remdesivir 100 mg/ Sodium (Chloride) 230 mls @ 115 mls/hr IV Q24H ROSENDA Stop: 09/07/23 22:59 Montelukast Sodium (Montelukast Sodium 10 Mg Tablet) 10 mg PO BEDTIME ROSENDA Multivitamins/Vitamin C (Multivitamin Tablet) 1 tab PO DAILY ROSENDA Non-Formulary Medication (Magnesium) 250 mg PO BEDTIME [facility] Omeprazole (Omeprazole 40 Mg Capsule.Dr) 40 mg PO BEDTIME [facility] Rivaroxaban (Rivaroxaban 15 Mg Tablet) 15 mg PO DAILY@1700 [facility] Sodium Chloride (0.9 % Sodium Chloride Flush 3 Ml Syringe) 3 ml IVFLUSH QSHIFT [facility] Last Admin: 09/04/23 02:32 Dose: 3 ml Vitamin D (Cholecalciferol (Vitamin D3) 25 Mcg Tablet) 25 mcg PO DAILY [facility] Vitamin E (Vitamin E (Dl,Tocopheryl Acet) 180 Mg (400 Unit) Capsule) 180 mg PO DAILY [facility] Home Medications Medication Instructions Recorded Confirmed Last Taken Type montelukast 10 mg tablet 10 mg PO BEDTIME 05/16/20 09/03/23 09/02/23 History fexofenadine 180 mg tablet 180 mg PO DAILY 06/21/21 09/03/23 09/02/23 History (Shea Allergy) coenzyme Q10 100 mg tablet 100 mg PO DAILY 07/28/21 09/03/23 09/02/23 History magnesium 250 mg tablet 250 mg PO BEDTIME 07/28/21 09/03/23 09/02/23 History multivitamin 1 tab PO DAILY 07/28/21 09/03/23 09/02/23 History vitamin E (dl, acetate) 180 mg 180 mg PO DAILY 07/28/22 09/03/23 09/02/23 History (400 unit) capsule ascorbic acid (vitamin C) 500 mg 1,000 mg PO DAILY 09/26/22 09/03/23 09/02/23 History tablet furosemide 40 mg tablet 40 mg PO DAILY 09/26/22 09/03/23 09/02/23 History omeprazole 40 mg capsule,delayed 40 mg PO BEDTIME 09/26/22 09/03/23 09/02/23 History release turmeric 400 mg capsule 400 mg PO DAILY@1200 11/03/22 09/03/23 09/02/23 History gabapentin 300 mg capsule 600 mg PO BEDTIME 04/06/23 09/03/23 09/02/23 History meloxicam 15 mg tablet 15 mg PO DAILY 04/06/23 09/03/23 09/02/23 History cholecalciferol (vitamin D3) 25 25 mcg PO DAILY 09/03/23 09/03/2324 History mcg (1,000 unit) capsule (Vitamin D3) promethazine 25 mg rectal 25 mg IN Q6H PRN nausea/vomiting 09/03/23 09/03/23 09/02/23 History suppository (Promethegan) Physical Exam 2 Vital Signs and Narrative: Vital Signs: Last Vital Signs Temp 97.8 F 09/03/23 21:29 Pulse 88 09/04/23 02:32 Resp 13 09/04/23 02:32 BP 129/78 09/04/23 02:32 Pulse Ox 96 09/04/23 02:32 O2 Del Method Nasal Cannula 09/04/23 02:32 O2 Flow Rate 4 09/04/23 02:32 BMI result Body Mass Index 22.1 Constitutional - Awake and Alert, No apparent distress. Acutely ill. Obese. Nasal cannula in place. HEENT - atraumatic. Normocephalic. Normal throat. Heart - irregular rhythm. Normal rate. Respiratory - Normal lung expansion, Normal respiratory effort, No respiratory distress, decreased breath sound at bases. No wheezing. No rhonchi. Gastrointestinal - NT / ND; +BS; No rebound or guarding Extremities - no calf tenderness bilaterally, no swelling Musculoskeletal - Normal inspection, normal ROM Skin - Warm/Dry Neurological - Alert & oriented x3. Psychological - Appropriate affect Results Labs 09/03/23 17:21 09/03/23 17:21 Labs: Laboratory Results - last 24 hr 09/03/23 09/03/23 17:17 17:21 MCV 95.4 MCH 31.7 MCHC 33.2 RDW 12.0 Plt Count 166 MPV 8.8 L Immature Gran % (Auto) 0.5 H Neut % (Auto) 78.4 H Lymph % (Auto) 6.9 L [place] % (Auto) 13.8 H Eos % (Auto) 0.1 Baso % (Auto) 0.3 Lymph # (Auto) 0.6 L [place] # (Auto) 1.2 Eos # (Auto) 0.0 Baso # (Auto) 0.0 Abs Immat Gran (auto) 0.04 H Absolute Neuts (auto) 6.7 Absolute Nucleated RBC 0.000 Nucleated RBC % (auto) 0.0 PT 14.7 H D INR 1.2 H APTT 32.1 Anion Gap 17 Estim Creat Clear Calc 32.8 Estimated GFR 46 Random Glucose 137 H Calcium 9.4 Total Bilirubin 1.2 H AST 21 ALT 17 Alkaline Phosphatase 68 Total Protein 7.4 Albumin 4.3 Lipase 12 COVID-19 (KIANA) Positive A COVID-19 Clin Com See Note Influenza Type A (CARMINE) Negative Influenza Type B (CARMINE) Negative Influenza A & B Note See Note Imaging Radiologist's Impressions: Impressions Chest X-Ray 09/03/23 19:35 IMPRESSION: No definite acute focal pneumonia or edema Assessment and Plan (1) Atrial fibrillation with rapid ventricular response: Status: Acute (2) Hypoxic respiratory failure: Status: Acute Plan Chiquita Meeks this is a 78 years old woman admitted with: * Hypoxic respiratory failure secondary to COVID-19 infection. Admit to hospitalist service. Telemetry. Pulse oximetry. Continue supplemental oxygen via nasal cannula to keep oxygen saturation above 90%. Continue treatment with dexamethasone IV. Remdesivir was ordered but patient is refusing. Bronchodilator therapy as needed. * Atrial fibrillation with rapid ventricular response, resolved. Continue treatment with Coreg, diltiazem and Xarelto. * Hyperlipidemia. Continue statin. * Neuropathy. Continue gabapentin. * GERD. Continue omeprazole. * Chronic diastolic congestive heart failure. Doubt acute decompensation. Continue Lasix. On Jardiance. * DVT prophylaxis: On Xarelto. GI prophylaxis: Continue PPI. Code status: Full. Quality Stroke Does the patient have a stroke diagnosis?: No VTE Prior VTE?: No VTE Risk Level:: Medical - moderate - high VTE Device Contraindication: Treatment Not Indicated VTE Drug Contraindication: N/A - Med Ordered
[2023-09-04] MEDS: carvediloL 25 MG TABLET PO ×3 (03:36→17:37)
[2023-09-04] MEDS: dilTIAZem HCL CD 240 MG CAP.ER.DEG PO (03:36)
[2023-09-04 06:41] LABS: MANUAL DIFF FLAG NO
[2023-09-04 06:47] LABS: Basophils Percent Auto 0.2 % (0-2); Hematocrit 36.2 % (37.0-47.0); Hemoglobin 12.1 g/dl (12.0-16.0); Imm Gran Abs Auto 0.02 X10*3/uL (0.00-0.03); Imm Gran Pct Auto 0.4 % (0.0-0.4); Lymphocytes Absolute Auto 0.4 X10*3/uL (1.2-4.9); Lymphocytes Percent Auto 7.7 % (20-40); Mean Corpuscular HGB Conc 33.4 g/dl (31.0-35.0); Mean Corpuscular Hemoglobin 32.9 pg (27.0-33.0); Mean Corpuscular Volume 98.4 fL (80.0-98.0); Mean Platelet Volume 9.2 fL (9.4-12.3); Monocytes Absolute Auto 0.1 X10*3/uL (0.1-1.2); Monocytes Percent Auto 1.8 % (2-11); Neutrophils Percent Auto 89.9 % (45-73); Platelet Count 158 X10*3/uL (160-400); Red Blood Count 3.68 X10*6/uL (4.20-5.50); Red Cell Distribution Width 12.1 % (11.0-16.0); White Blood Count 5.6 X10*3/uL (4.8-10.8)
[2023-09-04 06:56] LABS: D Dimer High Sensitivity < 150 NG/ML
[2023-09-04 07:03] LABS: C Reactive Protein 3.89 mg/dL (< or = 0.50); Lactate Dehydrogenase 211 U/L (122-220); Magnesium 2.2 mg/dL (1.6-2.6)
--- NOTE | 2023-09-04 08:08 | PC.NURSE ---
this RN resumed care of pt at this time. vss and up to date. pt displays w/ afib on the playground monitor - HR irregular between 80s-130s. no sob/wob noted at this time. pt able to speak in full clear sentences w/o difficulty. respirations even and unlabored. fine crackles noted throughout upon auscultation. medication administered per provider order. pt awaiting bed assignment at this time. eating breakfast. call lion placed within reach.
[2023-09-04] MEDS: Multivitamin TABLET 1 TAB PO (08:16)
[2023-09-04] MEDS: Ascorbic Acid 500 MG TABLET 1000 MG PO (08:16)
[2023-09-04] MEDS: Atorvastatin Calcium 40 MG TABLET PO (08:16)
[2023-09-04] MEDS: Furosemide 40 MG TABLET PO (08:16)
[2023-09-04] MEDS: dexAMETHasone sod phosphate 4 MG/ML VIAL 6 MG IVPUSH (08:16)
[2023-09-04] MEDS: Cholecalciferol (Vitamin D3) 25 MCG TABLET PO (08:16)
[2023-09-04] MEDS: ondansetron HCL 4 MG/2 ML VIAL IVPUSH (08:31)
--- NOTE | 2023-09-04 08:32 | PC.NURSE ---
pt c/o nausea. prn medication administered per provider order. admitting provider also notified of pt's HR at this time. tech obtaining repeat ekg.
[2023-09-04] MEDS: Empagliflozin 10 MG TABLET PO (09:59)
[2023-09-04] MEDS: Vitamin E (Dl,Tocopheryl Acet) 180 MG (400 UNIT) CAPSULE PO (09:59)
--- NOTE | 2023-09-04 11:23 | MHC.CM.PN ---
IMM 09/04 PT LIVES ALONE. INDEPENDENT AT BASELINE. EMPLOYED P/T. +HCP ON FILE. PCP DR. THURSTON DP: HOME, PT IS NOT AGREEABLE TO SERVICES AT THIS TIME. PT HAS OWN RIDE HOME. CM WILL CONTINUE TO FOLLOW FOR ANY CHANGE IN DC NEEDS/PLAN.
--- NOTE | 2023-09-04 12:16 | PC.NURSE ---
pt continues to rest in no apparent distress at this time. pt has no complaints - denies pain. pt no longer afib on the school bus monitor. pt displays as nsr on the school bus monitor. pt continues to be on 4L via NC at this time but displays w/ no sob/wob. respirations even and unlabored. pt transitioned to 2L via NC in attempts to transition pt back to RA. plan of care ongoing. family bedside. call lion placed within reach.
--- NOTE | 2023-09-04 13:00 | P.PNIM_ITS ---
Subjective Subjective Date of Service: 09/04/23 Interval History: f/u on acute hypoxic resp failure d/t covid 19, improving but still on O2 AFIB with RVR resolved. Physical Exam 2 Vital Signs: Vital Signs: Last Vital Signs Temp 97.5 F 09/04/23 12:25 Pulse 76 09/04/23 12:25 Resp 18 09/04/23 12:25 BP 135/69 09/04/23 12:25 Pulse Ox 93 09/04/23 12:25 O2 Del Method Nasal Cannula 09/04/23 12:25 O2 Flow Rate 2 09/04/23 12:25 BMI result Body Mass Index 22.1 General: AO X 3, no acute distress Resp: CTA bilateral CVS: S1,S2, iregular iregular GI: +BS, NT, no distention Skin: No rash Neuro: motor grossly intact Psych: appropriate affect Objective Data Active Medications Acetaminophen (Acetaminophen 325 Mg Tablet) 650 mg PO Q6H PRN PRN Reason: Pain, Mild (Pain Scale 1-3) Albuterol/Ipratropium (Albuterol/Iprat 2.5/0.5mg 3 Ml Ampul.Neb) 3 ml INHALE Q4H PRN PRN Reason: Shortness of Breath/Wheezing Ascorbic Acid (Ascorbic Acid 500 Mg Tablet) 1,000 mg PO DAILY [facility] Last Admin: 09/04/23 08:16 Dose: 1,000 mg Documented By: RANJAN Atorvastatin Calcium (Atorvastatin Calcium 40 Mg Tablet) 40 mg PO DAILY [facility] Last Admin: 09/04/23 08:16 Dose: 40 mg Documented By: RANJAN Carvedilol (Carvedilol 25 Mg Tablet) 25 mg PO BIDWM [facility]; Protocol Last Admin: 09/04/23 08:07 Dose: 25 mg Documented By: RANJAN Dexamethasone Sodium Phosphate (Dexamethasone Sod Phosphate 4 Mg/Ml Vial) 6 mg IVPUSH DAILY [facility] Last Admin: 09/04/23 08:16 Dose: 6 mg Documented By: RANJAN Diltiazem HCl (Diltiazem Hcl Cd 240 Mg Cap.Er.Deg) 240 mg PO DAILY [facility]; Protocol Last Admin: 09/04/23 03:36 Dose: 240 mg Documented By: DORYS Empagliflozin (Empagliflozin 10 Mg Tablet) 10 mg PO DAILY [facility] Last Admin: 09/04/23 09:59 Dose: 10 mg Documented By: RANJAN Furosemide (Furosemide 40 Mg Tablet) 40 mg PO DAILY [facility]; Protocol Last Admin: 09/04/23 08:16 Dose: 40 mg Documented By: RANJAN Gabapentin (Gabapentin 300 Mg Capsule) 600 mg PO BEDTIME [facility] Remdesivir 100 mg/ Sodium (Chloride) 230 mls @ 115 mls/hr IV Q24H [facility] Stop: 09/07/23 22:59 Magnesium Oxide (Magnesium Oxide 400 Mg Tablet) 200 mg PO BEDTIME [facility] Montelukast Sodium (Montelukast Sodium 10 Mg Tablet) 10 mg PO BEDTIME [facility] Multivitamins/Vitamin C (Multivitamin Tablet) 1 tab PO DAILY [facility] Last Admin: 09/04/23 08:16 Dose: 1 tab Documented By: RANJAN Omeprazole (Omeprazole 40 Mg Capsule.Dr) 40 mg PO BEDTIME [facility] Ondansetron HCl (Ondansetron Hcl 4 Mg/2 Ml Vial) 4 mg IVPUSH Q8H PRN PRN Reason: Nausea and Vomiting Last Admin: 09/04/23 08:31 Dose: 4 mg Documented By: RANJAN Rivaroxaban (Rivaroxaban 15 Mg Tablet) 15 mg PO DAILY@1700 [facility] Sodium Chloride (0.9 % Sodium Chloride Flush 3 Ml Syringe) 3 ml IVFLUSH QSHIFT [facility] Last Admin: 09/04/23 08:07 Dose: 3 ml Documented By: RANJAN Vitamin D (Cholecalciferol (Vitamin D3) 25 Mcg Tablet) 25 mcg PO DAILY [facility] Last Admin: 09/04/23 08:16 Dose: 25 mcg Documented By: RANJAN Vitamin E (Vitamin E (Dl,Tocopheryl Acet) 180 Mg (400 Unit) Capsule) 180 mg PO DAILY [facility] Last Admin: 09/04/23 09:59 Dose: 180 mg Documented By: RANJAN Labs 09/04/23 06:15 09/03/23 17:21 Labs: Laboratory Results - last 24 hr 09/03/23 09/03/23 09/04/23 17:17 17:21 06:15 MCV 95.4 98.4 H MCH 31.7 32.9 MCHC 33.2 33.4 RDW 12.0 12.1 Plt Count 166 158 L MPV 8.8 L 9.2 L Immature Gran % (Auto) 0.5 H 0.4 Neut % (Auto) 78.4 H 89.9 H Lymph % (Auto) 6.9 L 7.7 L [place] % (Auto) 13.8 H 1.8 L Eos % (Auto) 0.1 0.0 Baso % (Auto) 0.3 0.2 Lymph # (Auto) 0.6 L 0.4 L [place] # (Auto) 1.2 0.1 Eos # (Auto) 0.0 0.0 Baso # (Auto) 0.0 0.0 Abs Immat Gran (auto) 0.04 H 0.02 Absolute Neuts (auto) 6.7 5.0 Absolute Nucleated RBC 0.000 0.000 Nucleated RBC % (auto) 0.0 0.0 PT 14.7 H D INR 1.2 H APTT 32.1 D-Dimer High Sensitivty < 150 Anion Gap 17 Estim Creat Clear Calc 32.8 Estimated GFR 46 Random Glucose 137 H Calcium 9.4 Magnesium 2.2 Total Bilirubin 1.2 H AST 21 ALT 17 Alkaline Phosphatase 68 Lactate Dehydrogenase 211 Total Creatine Kinase 69 C-Reactive Protein 3.89 H Total Protein 7.4 Albumin 4.3 Lipase 12 COVID-19 ([facility]IANA) Positive A COVID-19 Clin Com See Note Influenza Type A (CARMINE) Negative Influenza Type B (CARMINE) Negative Influenza A & B Note See Note Assessment and Plan (1) Hypoxic respiratory failure: Status: Acute (2) COVID-19: Status: Acute (3) Atrial fibrillation with rapid ventricular response: Status: Acute Plan 78/F with Chronic afib, HLD, diastolic heart failure here with acute hypoxic resp failure d/t covid Acute Hypoxic respiratory failure secondary to COVID-19 She has decline remdesevir, continue O2, keep O2 92 Continue Dexamethasone. Chronic Atrial fibrillation with rapid ventricular response, resolved. Continue treatment with Coreg, diltiazem and Xarelto. Hyperlipidemia. Continue statin. Neuropathy. Continue gabapentin. GERD. Continue omeprazole. Chronic diastolic congestive heart failure. No exacerbation, continue lasix, coreg and jardiance DVT prophylaxis: On Xarelto. GI prophylaxis: Continue PPI. Code status: Full. inpt for acute hypoxia from covid, needing O2 Quality Stroke Does the patient have a stroke diagnosis?: No VTE Prior VTE?: No VTE Risk Level:: Medical - moderate - high VTE Device Contraindication: Treatment Not Indicated VTE Drug Contraindication: N/A - Med Ordered
--- NOTE | 2023-09-04 13:47 | PC.NURSE ---
pt transitioned from 2L to RA at this time - resting at 90%. no sob/wob noted. respirations remain even/unlabored. family bedside. call lion placed within reach.
--- NOTE | 2023-09-04 16:17 | PC.NURSE ---
pt placed back on 2L via NC. tech found pt to be at 88% on RA. pt now resting at 93% on 2L via NC at this time. respirations remain even and unlabored. pt denies pain. has no complaints. family bedside. call lion placed within reach.
--- NOTE | 2023-09-04 17:49 | PC.NURSE ---
admitting worksheet completed. transport notified at this time.
[2023-09-04] MEDS: Rivaroxaban 15 MG TABLET PO (21:42)
[2023-09-04] MEDS: Gabapentin 300 MG CAPSULE 600 MG PO (21:42)
[2023-09-04] MEDS: Omeprazole 40 MG CAPSULE.DR PO (21:43)
[2023-09-04] MEDS: Magnesium Oxide 400 MG TABLET 200 MG PO (21:43)
[2023-09-04] MEDS: Montelukast Sodium 10 MG TABLET PO (21:43)
[2023-09-05] VITALS (7 sets, daily range): BP systolic 122–169; BP diastolic 68–84; PULSE 63–106; RESP 14–18; TEMP 36.1–36.7; O2SAT 93–96
--- NOTE | 2023-09-05 09:19 | HO.PM.IMPN ---
Subjective Subjective Date of Service: 09/05/23 Interval History: f/u on acute hypoxic resp failure d/t covid 19, improving but still on O2 Denies any new complaints. Constitutional Constitutional: Reports no additional constitutional complaints Cardiovascular Cardiovascular: Reports no additional cardiovascular complaints and Reports dyspnea on exertion Respiratory Respiratory: Reports dyspnea on exertion Gastrointestinal Gastrointestinal: Reports no additional gastrointestinal complaints Genitourinary Genitourinary: Reports no additional female genitourinary complaints Physical Exam Vital Signs: Vital Signs: Last Vital Signs Temp 98.1 F 09/05/23 08:00 Pulse 106 H 09/05/23 08:00 Resp 18 09/05/23 08:00 BP 148/84 H 09/05/23 08:00 Pulse Ox 96 09/05/23 08:00 O2 Del Method Nasal Cannula 09/05/23 08:00 O2 Flow Rate 2 09/05/23 08:00 BMI result Body Mass Index 22.1 Elderly female lying in bed in mild distress on supplemental oxygen Neck supple, no JVD Regular rate and rhythm, S1-S2 heard Bilateral mild crackles at bases, no wheezing Abdomen soft nontender, no guarding, no rigidity Patient is awake, alert and oriented to self, place, time and person ; no focal motor deficit Psych: Normal mood No pedal edema Objective Data Active Medications Acetaminophen (Acetaminophen 325 Mg Tablet) 650 mg PO Q6H PRN PRN Reason: Pain, Mild (Pain Scale 1-3) Albuterol/Ipratropium (Albuterol/Iprat 2.5/0.5mg 3 Ml Ampul.Neb) 3 ml INHALE Q4H PRN PRN Reason: Shortness of Breath/Wheezing Ascorbic Acid (Ascorbic Acid 500 Mg Tablet) 1,000 mg PO DAILY [facility] Last Admin: 09/04/23 08:16 Dose: 1,000 mg Documented By: RANJAN Atorvastatin Calcium (Atorvastatin Calcium 40 Mg Tablet) 40 mg PO DAILY [facility] Last Admin: 09/04/23 08:16 Dose: 40 mg Documented By: RANJAN Carvedilol (Carvedilol 25 Mg Tablet) 25 mg PO BIDWM [facility]; Protocol Last Admin: 09/04/23 17:37 Dose: 25 mg Documented By: RANJAN Dexamethasone Sodium Phosphate (Dexamethasone Sod Phosphate 4 Mg/Ml Vial) 6 mg IVPUSH DAILY [facility] Last Admin: 09/04/23 08:16 Dose: 6 mg Documented By: RANJAN Diltiazem HCl (Diltiazem Hcl Cd 240 Mg Cap.Er.Deg) 240 mg PO DAILY [facility]; Protocol Last Admin: 09/04/23 03:36 Dose: 240 mg Documented By: DORYS Empagliflozin (Empagliflozin 10 Mg Tablet) 10 mg PO DAILY [facility] Last Admin: 09/04/23 09:59 Dose: 10 mg Documented By: RANJAN Furosemide (Furosemide 40 Mg Tablet) 40 mg PO DAILY [facility]; Protocol Last Admin: 09/04/23 08:16 Dose: 40 mg Documented By: RANJAN Gabapentin (Gabapentin 300 Mg Capsule) 600 mg PO BEDTIME [facility] Last Admin: 09/04/23 21:42 Dose: 600 mg Documented By: BYRON Remdesivir 100 mg/ Sodium (Chloride) 230 mls @ 115 mls/hr IV Q24H [facility] Stop: 09/07/23 22:59 Last Admin: 09/04/23 21:30 Dose: Not Given Documented By: BYRON Non-Admin Reason: Patient Refused Magnesium Oxide (Magnesium Oxide 400 Mg Tablet) 200 mg PO BEDTIME [facility] Last Admin: 09/04/23 21:43 Dose: 200 mg Documented By: BYRON Montelukast Sodium (Montelukast Sodium 10 Mg Tablet) 10 mg PO BEDTIME [facility] Last Admin: 09/04/23 21:43 Dose: 10 mg Documented By: BYRON Multivitamins/Vitamin C (Multivitamin Tablet) 1 tab PO DAILY [facility] Last Admin: 09/04/23 08:16 Dose: 1 tab Documented By: RANJAN Omeprazole (Omeprazole 40 Mg Capsule.Dr) 40 mg PO BEDTIME [facility] Last Admin: 09/04/23 21:43 Dose: 40 mg Documented By: BYRON Ondansetron HCl (Ondansetron Hcl 4 Mg/2 Ml Vial) 4 mg IVPUSH Q8H PRN PRN Reason: Nausea and Vomiting Last Admin: 09/04/23 08:31 Dose: 4 mg Documented By: RANJAN Rivaroxaban (Rivaroxaban 15 Mg Tablet) 15 mg PO DAILY@1700 [facility] Last Admin: 09/04/23 21:42 Dose: 15 mg Documented By: BYRON Sodium Chloride (0.9 % Sodium Chloride Flush 3 Ml Syringe) 3 ml IVFLUSH QSHIFT [facility] Last Admin: 09/04/23 21:46 Dose: 3 ml Documented By: BYRON Vitamin D (Cholecalciferol (Vitamin D3) 25 Mcg Tablet) 25 mcg PO DAILY [facility] Last Admin: 09/04/23 08:16 Dose: 25 mcg Documented By: RANJAN Vitamin E (Vitamin E (Dl,Tocopheryl Acet) 180 Mg (400 Unit) Capsule) 180 mg PO DAILY [facility] Last Admin: 09/04/23 09:59 Dose: 180 mg Documented By: RANJAN Labs 09/04/23 06:15 09/03/23 17:21 Assessment and Plan (1) Hypoxic respiratory failure: Status: Acute Plan 78/F with Chronic afib, HLD, diastolic heart failure here with acute hypoxic resp failure d/t covid Acute Hypoxic respiratory failure secondary to COVID-19 She has declined remdesevir, continue O2, keep O2 92 Continue Dexamethasone. Permanent Atrial fibrillation with rapid ventricular response, resolved. Continue treatment with Coreg, diltiazem and Xarelto. Hyperlipidemia. Continue statin. Neuropathy. Continue gabapentin. GERD. Continue omeprazole. Chronic diastolic congestive heart failure. No exacerbation, continue lasix, coreg and jardiance DVT prophylaxis: On Xarelto. GI prophylaxis: Continue PPI. Code status: Full. inpt for acute hypoxia from covid, needing O2 Quality Stroke Does the patient have a stroke diagnosis?: No VTE Prior VTE?: No VTE Risk Level:: Medical - moderate - high VTE Device Contraindication: Treatment Not Indicated VTE Drug Contraindication: N/A - Med Ordered
[2023-09-05] MEDS: Ascorbic Acid 500 MG TABLET 1000 MG PO (09:21)
[2023-09-05] MEDS: carvediloL 25 MG TABLET PO ×2 (09:22→17:22)
[2023-09-05] MEDS: Multivitamin TABLET 1 TAB PO (09:22)
[2023-09-05] MEDS: Empagliflozin 10 MG TABLET PO (09:22)
[2023-09-05] MEDS: Vitamin E (Dl,Tocopheryl Acet) 180 MG (400 UNIT) CAPSULE PO (09:23)
[2023-09-05] MEDS: dilTIAZem HCL CD 240 MG CAP.ER.DEG PO (09:23)
[2023-09-05] MEDS: dexAMETHasone sod phosphate 4 MG/ML VIAL 6 MG IVPUSH (09:23)
[2023-09-05] MEDS: Furosemide 40 MG TABLET PO (09:23)
[2023-09-05] MEDS: Atorvastatin Calcium 40 MG TABLET PO (09:24)
[2023-09-05] MEDS: Cholecalciferol (Vitamin D3) 25 MCG TABLET PO (09:25)
[2023-09-05] MEDS: 0.9 % Sodium Chloride Flush 3 ML SYRINGE IVFLUSH ×2 (09:31→17:22)
[2023-09-05] MEDS: Rivaroxaban 15 MG TABLET PO (17:22)
[2023-09-05] MEDS: Montelukast Sodium 10 MG TABLET PO (20:23)
[2023-09-05] MEDS: Omeprazole 40 MG CAPSULE.DR PO (20:23)
[2023-09-05] MEDS: Gabapentin 300 MG CAPSULE 600 MG PO (20:23)
[2023-09-05] MEDS: Magnesium Oxide 400 MG TABLET 200 MG PO (20:23)
[2023-09-06] MEDS: 0.9 % Sodium Chloride Flush 3 ML SYRINGE IVFLUSH ×3 (03:09→17:13)
[2023-09-06 03:41] VITALS: BP 142/86; PULSE 75; RESP 16; TEMP 36.7; O2SAT 97
[2023-09-06] MEDS: dilTIAZem HCL CD 240 MG CAP.ER.DEG PO (06:52)
[2023-09-06 07:25] VITALS: BP 133/85; PULSE 77; RESP 18; TEMP 36.4; O2SAT 94
[2023-09-06 07:28] LABS: Anion Gap 16 (12-20); Blood Urea Nitrogen 33 mg/dL (9-16); Calcium 9.1 mg/dL (8.4-10.2); Carbon Dioxide 21 mmol/L (22-29); Chloride 107 mmol/L (96-108); Creatinine Clr Calc Pharmacy 40.1; Estimated Glomerular Filt Rate 57; Glucose Random 114 mg/dL (60-115); Potassium 3.9 mmol/L (3.3-5.1); Sodium 140 mmol/L (135-145)
[2023-09-06] MEDS: Cholecalciferol (Vitamin D3) 25 MCG TABLET PO (08:23)
[2023-09-06] MEDS: Multivitamin TABLET 1 TAB PO (08:23)
[2023-09-06] MEDS: Atorvastatin Calcium 40 MG TABLET PO (08:23)
[2023-09-06] MEDS: dexAMETHasone sod phosphate 4 MG/ML VIAL 6 MG IVPUSH (08:23)
[2023-09-06] MEDS: Empagliflozin 10 MG TABLET PO (08:24)
[2023-09-06] MEDS: Ascorbic Acid 500 MG TABLET 1000 MG PO (08:24)
[2023-09-06] MEDS: carvediloL 25 MG TABLET PO ×2 (08:24→17:13)
[2023-09-06] MEDS: Furosemide 40 MG TABLET PO (08:24)
[2023-09-06] MEDS: Vitamin E (Dl,Tocopheryl Acet) 180 MG (400 UNIT) CAPSULE PO (08:24)
[2023-09-06 11:09] VITALS: BP 116/67; PULSE 84; RESP 20; TEMP 36.5; O2SAT 93
--- NOTE | 2023-09-06 12:24 | P.CONCA_ITS ---
History of Present Illness History of Present Illness Date of Service: 09/06/23 Requesting physician: Tien Gallo Chief complaint: Afib, covid Narrative: 78-year-old female with known history of atrial fibrillation with previous ablation as well as cardioversions many time who is presenting with COVID-19 and AFib with RVR. We have been asked to her manage her atrial fibrillation. She has quite difficult to control atrial fibrillation and has been on multiple medications in the past. More recently a rate control strategy was decided with the plan that if that is difficult to achieve then AV estiven ablation with permanent pacemaker placement should be pursued. She is presenting with COVID- 19 infection and apparently was hypoxic on admission although her chest x-ray did not show any obvious issues. She is denying any symptoms currently but occasionally gets palpitations as her heart rate goes up. She is on diltiazem 240 mg as well as carvedilol 25 mg twice a day. She is on rivaroxaban for anticoagulation. [facility] Past Medical History Medical History Preoperative cardiovascular examination NSTEMI (non-ST elevated myocardial infarction) Atrial fibrillation with RVR Pulmonary hypertension Paroxysmal atrial fibrillation Chronic heart failure with preserved ejection fraction (HFpEF) Chronic heart failure with preserved ejection fraction (HFpEF) Cardiomyopathy Pulmonary hypertension Diastolic dysfunction History of cardiomyopathy HTN (hypertension) Paroxysmal atrial fibrillation History of cardioversion Family History Family History Father Cancer Mother Stroke Brother Atrial fibrillation Sister Cardiovascular disease Atrial fibrillation Surgical History Surgical History S/P cardiac catheterization Hx of total hip arthroplasty Hx of cardiac cath Hx of hand surgery History of back surgery Social History Social History Household Members: None Housing: House Do you presently have visiting nurse or other home services: No Unable to assess alcohol history related to: Unknown Alcohol intake: former Patient Tobacco Use Status: Never used Tobacco Second Hand Smoke Exposure: No Advance Directives Date on File: 12/18/22 service: No Current occupational status: retired Meds Allergies Allergy/AdvReac Type Severity Reaction Status Date / Time aspirin [ASPIRIN] Allergy Unknown RASH Verified 09/03/23 17:04 Sulfa (Sulfonamide Allergy Unknown RASH Verified 09/03/23 17:04 Antibiotics) [SULFA (SULFONAMIDE ANTIBIOTICS)] flecainide AdvReac Intermediate Dizziness Verified 09/03/23 17:04 amiodarone AdvReac Mild Dizziness Verified 09/03/23 17:04 Digitalis Glycosides AdvReac Confusion Verified 09/03/23 17:04 adhesives AdvReac Unknown Uncoded 04/06/23 10:34 Active Medications: Current Medications Acetaminophen (Acetaminophen 325 Mg Tablet) 650 mg PO Q6H PRN PRN Reason: Pain, Mild (Pain Scale 1-3) Albuterol/Ipratropium (Albuterol/Iprat 2.5/0.5mg 3 Ml Ampul.Neb) 3 ml INHALE Q4H PRN PRN Reason: Shortness of Breath/Wheezing Ascorbic Acid (Ascorbic Acid 500 Mg Tablet) 1,000 mg PO DAILY [facility] Last Admin: 09/06/23 08:24 Dose: 1,000 mg Atorvastatin Calcium (Atorvastatin Calcium 40 Mg Tablet) 40 mg PO DAILY [facility] Last Admin: 09/06/23 08:23 Dose: 40 mg Carvedilol (Carvedilol 25 Mg Tablet) 25 mg PO BIDWM [facility]; Protocol Last Admin: 09/06/23 08:24 Dose: 25 mg Dexamethasone Sodium Phosphate (Dexamethasone Sod Phosphate 4 Mg/Ml Vial) 6 mg IVPUSH DAILY [facility] Last Admin: 09/06/23 08:23 Dose: 6 mg Diltiazem HCl (Diltiazem Hcl Cd 240 Mg Cap.Er.Deg) 240 mg PO DAILY [facility]; Protocol Last Admin: 09/06/23 06:52 Dose: 240 mg Empagliflozin (Empagliflozin 10 Mg Tablet) 10 mg PO DAILY [facility] Last Admin: 09/06/23 08:24 Dose: 10 mg Furosemide (Furosemide 40 Mg Tablet) 40 mg PO DAILY [facility]; Protocol Last Admin: 09/06/23 08:24 Dose: 40 mg Gabapentin (Gabapentin 300 Mg Capsule) 600 mg PO BEDTIME [facility] Last Admin: 09/05/23 20:23 Dose: 600 mg Magnesium Oxide (Magnesium Oxide 400 Mg Tablet) 200 mg PO BEDTIME [facility] Last Admin: 09/05/23 20:23 Dose: 200 mg Montelukast Sodium (Montelukast Sodium 10 Mg Tablet) 10 mg PO BEDTIME [facility] Last Admin: 09/05/23 20:23 Dose: 10 mg Multivitamins/Vitamin C (Multivitamin Tablet) 1 tab PO DAILY [facility] Last Admin: 09/06/23 08:23 Dose: 1 tab Omeprazole (Omeprazole 40 Mg Capsule.Dr) 40 mg PO BEDTIME [facility] Last Admin: 09/05/23 20:23 Dose: 40 mg Ondansetron HCl (Ondansetron Hcl 4 Mg/2 Ml Vial) 4 mg IVPUSH Q8H PRN PRN Reason: Nausea and Vomiting Last Admin: 09/04/23 08:31 Dose: 4 mg Rivaroxaban (Rivaroxaban 15 Mg Tablet) 15 mg PO DAILY@1700 [facility] Last Admin: 09/05/23 17:22 Dose: 15 mg Sodium Chloride (0.9 % Sodium Chloride Flush 3 Ml Syringe) 3 ml IVFLUSH QSHIFT [facility] Last Admin: 09/06/23 08:25 Dose: 3 ml Vitamin D (Cholecalciferol (Vitamin D3) 25 Mcg Tablet) 25 mcg PO DAILY [facility] Last Admin: 09/06/23 08:23 Dose: 25 mcg Vitamin E (Vitamin E (Dl,Tocopheryl Acet) 180 Mg (400 Unit) Capsule) 180 mg PO DAILY [facility] Last Admin: 09/06/23 08:24 Dose: 180 mg Home Medications Medication Instructions Recorded Confirmed Last Taken Type montelukast 10 mg tablet 10 mg PO BEDTIME 05/16/20 09/03/23 09/02/23 History fexofenadine 180 mg tablet 180 mg PO DAILY 06/21/21 09/03/23 09/02/23 History (Shea Allergy) coenzyme Q10 100 mg tablet 100 mg PO DAILY 07/28/21 09/03/23 09/02/23 History magnesium 250 mg tablet 250 mg PO BEDTIME 07/28/21 09/03/23 09/02/23 History multivitamin 1 tab PO DAILY 07/28/21 09/03/23 09/02/23 History vitamin E (dl, acetate) 180 mg 180 mg PO DAILY 07/28/22 09/03/23 09/02/23 History (400 unit) capsule ascorbic acid (vitamin C) 500 mg 1,000 mg PO DAILY 09/26/22 09/03/23 09/02/23 History tablet furosemide 40 mg tablet 40 mg PO DAILY 09/26/22 09/03/23 09/02/23 History omeprazole 40 mg capsule,delayed 40 mg PO BEDTIME 09/26/22 09/03/23 09/02/23 History release turmeric 400 mg capsule 400 mg PO DAILY@1200 11/03/22 09/03/23 09/02/23 History gabapentin 300 mg capsule 600 mg PO BEDTIME 04/06/23 09/03/23 09/02/23 History meloxicam 15 mg tablet 15 mg PO DAILY 04/06/23 09/03/23 09/02/23 History cholecalciferol (vitamin D3) 25 25 mcg PO DAILY 09/03/23 09/03/23 09/02/23 History mcg (1,000 unit) capsule (Vitamin D3) promethazine 25 mg rectal 25 mg [place] Q6H PRN nausea/vomiting 09/03/23 09/03/23 09/02/23 History suppository (Promethegan) Physical Exam 2 Vital Signs: Vital Signs: Last Vital Signs Temp 97.7 F 09/06/23 11:09 Pulse 84 09/06/23 11:09 Resp 20 09/06/23 11:09 BP 116/67 09/06/23 11:09 Pulse Ox 93 09/06/23 11:09 O2 Del Method Room Air 09/06/23 11:09 O2 Flow Rate 2 09/05/23 19:49 BMI result Body Mass Index 22.1 GENERAL APPEARANCE: in no acute distress, pleasant. NECK: no carotid bruit, no jugular venous distention. SKIN: no suspicious lesions, warm and dry. HEART: no murmurs, irregular rate and rhythm. LUNGS: clear to auscultation bilaterally. ABDOMEN: soft, nontender. EXTREMITIES: no edema. PERIPHERAL PULSES: equal. NEUROLOGIC: No gross deficits, AAO X 3 Objective Labs and Meds 09/04/23 06:15 09/06/23 06:17 Lab results: Laboratory Results - last 24 hr 09/06/23 06:17 Hold Purple Top SEE NOTE Sodium 140 Potassium 3.9 Chloride 107 Carbon Dioxide 21 L Anion Gap 16 BUN 33 H Creatinine 0.94 Estim Creat Clear Calc 40.1 Estimated GFR 57 Random Glucose 114 Calcium 9.1 Assessment and Plan (1) COVID-19: Status: Acute (2) Persistent atrial fibrillation: Status: Acute Plan [age] year female with difficult to control symptomatic atrial fibrillation. She is on diltiazem 240 mg and carvedilol 25 mg twice a day. Increase the diltiazem to 360 mg daily. If heart rate well controlled and symptoms are improved then potentially rate control strategy can be pursued. On the other hand if heart rate is not controlled with maximizing medications then she may require a strategy of AV estiven ablation with pacemaker placement. She is well known to Dr. Brennan who is picking the service from tomorrow and will be able to advise further about management plan. Continue rivaroxaban for anticoagulation. Clinically not in heart failure. Thank you for allowing me to participate in the care of your patient. Please feel free to contact me if you have any questions. Procedures Date of Service Date of Service: 09/06/23
--- NOTE | 2023-09-06 13:30 | P.PNIM_ITS ---
Subjective Subjective Date of Service: 09/06/23 Interval History: Continues with intermittent burst of AFib with rapid ventricular response Review of Systems Denies chest pain Denies shortness of breath Denies nausea vomiting diarrhea Denies fever chills Physical Exam 2 Vital Signs: Vital Signs: Last Vital Signs Temp 97.7 F 09/06/23 11:09 Pulse 84 09/06/23 11:09 Resp 20 09/06/23 11:09 BP 116/67 09/06/23 11:09 Pulse Ox 93 09/06/23 11:09 O2 Del Method Room Air 09/06/23 11:09 O2 Flow Rate 2 09/05/23 19:49 BMI result Body Mass Index 22.1 Const: Other: Awake alert oriented x3 no acute distress Resp: Other: Clear to auscultation bilaterally no rales rhonchi wheezes Cardio: Other: No S4; positive S1-S2; no S3 murmurs rubs or gallops GI: Other: Soft nontender nondistended normoactive bowel sounds Extrem: Other: No edema bilaterally Objective Data Active Medications Acetaminophen (Acetaminophen 325 Mg Tablet) 650 mg PO Q6H PRN PRN Reason: Pain, Mild (Pain Scale 1-3) Albuterol/Ipratropium (Albuterol/Iprat 2.5/0.5mg 3 Ml Ampul.Neb) 3 ml INHALE Q4H PRN PRN Reason: Shortness of Breath/Wheezing Ascorbic Acid (Ascorbic Acid 500 Mg Tablet) 1,000 mg PO DAILY [facility] Last Admin: 09/06/23 08:24 Dose: 1,000 mg Documented By: VINCE Atorvastatin Calcium (Atorvastatin Calcium 40 Mg Tablet) 40 mg PO DAILY [facility] Last Admin: 09/06/23 08:23 Dose: 40 mg Documented By: VINCE Carvedilol (Carvedilol 25 Mg Tablet) 25 mg PO BIDWM [facility]; Protocol Last Admin: 09/06/23 08:24 Dose: 25 mg Documented By: VINCE Dexamethasone Sodium Phosphate (Dexamethasone Sod Phosphate 4 Mg/Ml Vial) 6 mg IVPUSH DAILY [facility] Last Admin: 09/06/23 08:23 Dose: 6 mg Documented By: VINCE Diltiazem HCl (Diltiazem Hcl Cd 240 Mg Cap.Er.Deg) 240 mg PO DAILY [facility]; Protocol Last Admin: 09/06/23 06:52 Dose: 240 mg Documented By: KATHERINE Empagliflozin (Empagliflozin 10 Mg Tablet) 10 mg PO DAILY [facility] Last Admin: 09/06/23 08:24 Dose: 10 mg Documented By: VINCE Furosemide (Furosemide 40 Mg Tablet) 40 mg PO DAILY [facility]; Protocol Last Admin: 09/06/23 08:24 Dose: 40 mg Documented By: VINCE Gabapentin (Gabapentin 300 Mg Capsule) 600 mg PO BEDTIME [facility] Last Admin: 09/05/23 20:23 Dose: 600 mg Documented By: TREV Magnesium Oxide (Magnesium Oxide 400 Mg Tablet) 200 mg PO BEDTIME [facility] Last Admin: 09/05/23 20:23 Dose: 200 mg Documented By: TREV Montelukast Sodium (Montelukast Sodium 10 Mg Tablet) 10 mg PO BEDTIME [facility] Last Admin: 09/05/23 20:23 Dose: 10 mg Documented By: TREV Multivitamins/Vitamin C (Multivitamin Tablet) 1 tab PO DAILY [facility] Last Admin: 09/06/23 08:23 Dose: 1 tab Documented By: VINCE Omeprazole (Omeprazole 40 Mg Capsule.Dr) 40 mg PO BEDTIME [facility] Last Admin: 09/05/23 20:23 Dose: 40 mg Documented By: TREV Ondansetron HCl (Ondansetron Hcl 4 Mg/2 Ml Vial) 4 mg IVPUSH Q8H PRN PRN Reason: Nausea and Vomiting Last Admin: 09/04/23 08:31 Dose: 4 mg Documented By: RANJAN Rivaroxaban (Rivaroxaban 15 Mg Tablet) 15 mg PO DAILY@1700 [facility] Last Admin: 09/05/23 17:22 Dose: 15 mg Documented By: VINCE Sodium Chloride (0.9 % Sodium Chloride Flush 3 Ml Syringe) 3 ml IVFLUSH QSHIFT [facility] Last Admin: 09/06/23 08:25 Dose: 3 ml Documented By: VINCE Vitamin D (Cholecalciferol (Vitamin D3) 25 Mcg Tablet) 25 mcg PO DAILY [facility] Last Admin: 09/06/23 08:23 Dose: 25 mcg Documented By: VINCE Vitamin E (Vitamin E (Dl,Tocopheryl Acet) 180 Mg (400 Unit) Capsule) 180 mg PO DAILY [facility] Last Admin: 09/06/23 08:24 Dose: 180 mg Documented By: VINCE Labs 09/04/23 06:15 09/06/23 06:17 Labs: Laboratory Results - last 24 hr 09/06/23 06:17 Hold Purple Top SEE NOTE Anion Gap 16 Estim Creat Clear Calc 40.1 Estimated GFR 57 Random Glucose 114 Calcium 9.1 Assessment and Plan (1) Hypoxic respiratory failure: Status: Acute (2) COVID-19: Status: Acute (3) Atrial fibrillation with rapid ventricular response: Status: Acute Plan 78/F with Chronic afib, HLD, diastolic heart failure here with acute hypoxic resp failure d/t covid; continues with bouts of AFib with RVR 1.Acute Hypoxic respiratory failure secondary to COVID-19 -declined remdesevir, -continue O2 titrate to maintain sats greater than equal to 92% -continue Dexamethasone. 2.Permanent Atrial fibrillation with rapid ventricular response -increase Cardizem CD to 360 daily -continue Xarelto as ordered -adjust therapies as clinically indicated 3.Chronic diastolic congestive heart failure -not a factor this admission -continue outpatient therapies Xarelto. Full. Requires inpatient therapy for IV dexamethasone to treat COVID-19 symptoms and specialty consultation for poorly controlled atrial fibrillation with rapid ventricular response Quality Stroke Does the patient have a stroke diagnosis?: No VTE Prior VTE?: No VTE Risk Level:: Medical - moderate - high VTE Device Contraindication: Treatment Not Indicated VTE Drug Contraindication: N/A - Med Ordered
[2023-09-06 16:00] VITALS: BP 133/89; PULSE 95; RESP 17; TEMP 36.1; O2SAT 92
[2023-09-06] MEDS: Rivaroxaban 15 MG TABLET PO (17:13)
[2023-09-06 19:35] VITALS: BP 138/84; PULSE 81; RESP 18; TEMP 36.6; O2SAT 91
[2023-09-06] MEDS: Gabapentin 300 MG CAPSULE 600 MG PO (20:57)
[2023-09-06] MEDS: Omeprazole 40 MG CAPSULE.DR PO (20:57)
[2023-09-06] MEDS: Magnesium Oxide 400 MG TABLET 200 MG PO (20:58)
[2023-09-06] MEDS: Montelukast Sodium 10 MG TABLET PO (20:59)
[2023-09-06 23:57] VITALS: BP 141/87; PULSE 71; RESP 18; TEMP 36.8; O2SAT 93
[2023-09-07 03:46] VITALS: BP 128/79; PULSE 91; RESP 18; TEMP 36.1; O2SAT 95
[2023-09-07 07:12] LABS: MANUAL DIFF FLAG NO
[2023-09-07 07:39] LABS: Basophils Percent Auto 0.2 % (0-2); Hematocrit 40.5 % (37.0-47.0); Hemoglobin 13.8 g/dl (12.0-16.0); Imm Gran Abs Auto 0.06 X10*3/uL (0.00-0.03); Imm Gran Pct Auto 0.7 % (0.0-0.4); Mean Corpuscular HGB Conc 34.1 g/dl (31.0-35.0); Mean Corpuscular Hemoglobin 32.3 pg (27.0-33.0); Mean Corpuscular Volume 94.8 fL (80.0-98.0); Mean Platelet Volume 9.6 fL (9.4-12.3); Monocytes Absolute Auto 0.6 X10*3/uL (0.1-1.2); Neutrophils Absolute Auto 7.2 x10*3/uL (2.0-8.3); Neutrophils Percent Auto 81.1 % (45-73); Platelet Count 221 X10*3/uL (160-400); Red Blood Count 4.27 X10*6/uL (4.20-5.50); Red Cell Distribution Width 11.8 % (11.0-16.0); White Blood Count 8.9 X10*3/uL (4.8-10.8)
[2023-09-07 07:41] LABS: Alanine Aminotransferase 20 U/L (0-31); Albumin Level 3.9 g/dL (3.5-5.0); Alkaline Phosphatase 55 U/L (39-117); Anion Gap 13 (12-20); Aspartate Amino Transferase 18 U/L (5-31); Bilirubin Total 0.8 mg/dL (0.0-1.0); Blood Urea Nitrogen 32 mg/dL (9-16); Carbon Dioxide 23 mmol/L (22-29); Chloride 107 mmol/L (96-108); Creatinine Clr Calc Pharmacy 44.4; Estimated Glomerular Filt Rate > 60; Glucose Fasting 114 mg/dL (60-99); Potassium 3.6 mmol/L (3.3-5.1); Sodium 139 mmol/L (135-145); Total Protein 6.8 g/dL (6.5-8.0)
[2023-09-07 08:00] VITALS: BP 151/90; PULSE 85; RESP 15; TEMP 36.3; O2SAT 95
[2023-09-07] MEDS: carvediloL 25 MG TABLET PO ×2 (08:28→16:51)
[2023-09-07] MEDS: Cholecalciferol (Vitamin D3) 25 MCG TABLET PO (08:28)
[2023-09-07] MEDS: Ascorbic Acid 500 MG TABLET 1000 MG PO (08:28)
[2023-09-07] MEDS: Furosemide 40 MG TABLET PO (08:28)
[2023-09-07] MEDS: dilTIAZem HCL CD 180 MG CAP.ER.24H 360 MG PO (08:28)
[2023-09-07] MEDS: Atorvastatin Calcium 40 MG TABLET PO (08:28)
[2023-09-07] MEDS: Multivitamin TABLET 1 TAB PO (08:28)
[2023-09-07] MEDS: Vitamin E (Dl,Tocopheryl Acet) 180 MG (400 UNIT) CAPSULE PO (08:28)
[2023-09-07] MEDS: Empagliflozin 10 MG TABLET PO (08:28)
[2023-09-07] MEDS: dexAMETHasone sod phosphate 4 MG/ML VIAL 6 MG IVPUSH (08:29)
[2023-09-07] MEDS: 0.9 % Sodium Chloride Flush 3 ML SYRINGE IVFLUSH ×3 (08:30→20:53)
[2023-09-07 11:59] VITALS: BP 107/55; PULSE 105; RESP 20; TEMP 36.3; O2SAT 96
--- NOTE | 2023-09-07 12:40 | P.PNIM_ITS ---
Subjective Subjective Date of Service: 09/07/23 Interval History: Heart rate well control with med adjustment. Voices no cardiac complaints Review of Systems Denies chest pain Denies shortness of breath Denies nausea vomiting diarrhea Denies fever chills Physical Exam 2 Vital Signs: Vital Signs: Last Vital Signs Temp 97.3 F 09/07/23 11:59 Pulse 105 H 09/07/23 11:59 Resp 20 09/07/23 11:59 BP 107/55 L 09/07/23 11:59 Pulse Ox 96 09/07/23 11:59 O2 Del Method Room Air 09/07/23 11:59 O2 Flow Rate 2 09/05/23 19:49 BMI result Body Mass Index 22.1 Const: Other: Awake alert oriented x3 no acute distress Resp: Other: Clear to auscultation bilaterally no rales rhonchi wheezes Cardio: Other: No S4; positive S1-S2; no S3 murmurs rubs or gallops GI: Other: Soft nontender nondistended normoactive bowel sounds Extrem: Other: No edema bilaterally Objective Data Active Medications Acetaminophen (Acetaminophen 325 Mg Tablet) 650 mg PO Q6H PRN PRN Reason: Pain, Mild (Pain Scale 1-3) Albuterol/Ipratropium (Albuterol/Iprat 2.5/0.5mg 3 Ml Ampul.Neb) 3 ml INHALE Q4H PRN PRN Reason: Shortness of Breath/Wheezing Ascorbic Acid (Ascorbic Acid 500 Mg Tablet) 1,000 mg PO DAILY [facility] Last Admin: 09/07/23 08:28 Dose: 1,000 mg Documented By: JUAN PABLO Atorvastatin Calcium (Atorvastatin Calcium 40 Mg Tablet) 40 mg PO DAILY [facility] Last Admin: 09/07/23 08:28 Dose: 40 mg Documented By: JUAN PABLO Carvedilol (Carvedilol 25 Mg Tablet) 25 mg PO BIDWM [facility]; Protocol Last Admin: 09/07/23 08:28 Dose: 25 mg Documented By: JUAN PABLO Dexamethasone Sodium Phosphate (Dexamethasone Sod Phosphate 4 Mg/Ml Vial) 6 mg IVPUSH DAILY [facility] Last Admin: 09/07/23 08:29 Dose: 6 mg Documented By: JUAN PABLO Diltiazem HCl (Diltiazem Hcl Cd 180 Mg Cap.Er.24h) 360 mg PO DAILY [facility]; Protocol Last Admin: 09/07/23 08:28 Dose: 360 mg Documented By: JUAN PABLO Empagliflozin (Empagliflozin 10 Mg Tablet) 10 mg PO DAILY [facility] Last Admin: 09/07/23 08:28 Dose: 10 mg Documented By: JUAN PABLO Furosemide (Furosemide 40 Mg Tablet) 40 mg PO DAILY [facility]; Protocol Last Admin: 09/07/23 08:28 Dose: 40 mg Documented By: JUAN PABLO Gabapentin (Gabapentin 300 Mg Capsule) 600 mg PO BEDTIME [facility] Last Admin: 09/06/23 20:57 Dose: 600 mg Documented By: TESFAYE Magnesium Oxide (Magnesium Oxide 400 Mg Tablet) 200 mg PO BEDTIME [facility] Last Admin: 09/06/23 20:58 Dose: 200 mg Documented By: TESFAYE Montelukast Sodium (Montelukast Sodium 10 Mg Tablet) 10 mg PO BEDTIME [facility] Last Admin: 09/06/23 20:59 Dose: 10 mg Documented By: TESFAYE Multivitamins/Vitamin C (Multivitamin Tablet) 1 tab PO DAILY [facility] Last Admin: 09/07/23 08:28 Dose: 1 tab Documented By: JUAN PABLO Omeprazole (Omeprazole 40 Mg Capsule.Dr) 40 mg PO BEDTIME [facility] Last Admin: 09/06/23 20:57 Dose: 40 mg Documented By: TESFAYE Ondansetron HCl (Ondansetron Hcl 4 Mg/2 Ml Vial) 4 mg IVPUSH Q8H PRN PRN Reason: Nausea and Vomiting Last Admin: 09/04/23 08:31 Dose: 4 mg Documented By: RANJAN Rivaroxaban (Rivaroxaban 15 Mg Tablet) 15 mg PO DAILY@1700 [facility] Last Admin: 09/06/23 17:13 Dose: 15 mg Documented By: VINCE Sodium Chloride (0.9 % Sodium Chloride Flush 3 Ml Syringe) 3 ml IVFLUSH QSHIFT [facility] Last Admin: 09/07/23 08:30 Dose: 3 ml Documented By: JUAN PABLO Vitamin D (Cholecalciferol (Vitamin D3) 25 Mcg Tablet) 25 mcg PO DAILY [facility] Last Admin: 09/07/23 08:28 Dose: 25 mcg Documented By: JUAN PABLO Vitamin E (Vitamin E (Dl,Tocopheryl Acet) 180 Mg (400 Unit) Capsule) 180 mg PO DAILY [facility] Last Admin: 09/07/23 08:28 Dose: 180 mg Documented By: JUAN PABLO Labs 09/07/23 06:35 09/07/23 06:35 Labs: Laboratory Results - last 24 hr 09/07/23 06:35 MCV 94.8 MCH 32.3 MCHC 34.1 RDW 11.8 Plt Count 221 D MPV 9.6 Immature Gran % (Auto) 0.7 H Neut % (Auto) 81.1 H Lymph % (Auto) 11.0 L [place] % (Auto) 7.0 Eos % (Auto) 0.0 Baso % (Auto) 0.2 Lymph # (Auto) 1.0 L [place] # (Auto) 0.6 Eos # (Auto) 0.0 Baso # (Auto) 0.0 Abs Immat Gran (auto) 0.06 H Absolute Neuts (auto) 7.2 Absolute Nucleated RBC 0.000 Nucleated RBC % (auto) 0.0 Anion Gap 13 Estim Creat Clear Calc 44.4 Estimated GFR > 60 Fasting Glucose 114 H Calcium 9.0 Total Bilirubin 0.8 AST 18 ALT 20 Alkaline Phosphatase 55 Total Protein 6.8 Albumin 3.9 Assessment and Plan (1) Hypoxic respiratory failure: Status: Acute (2) COVID-19: Status: Acute (3) Atrial fibrillation with rapid ventricular response: Status: Acute Plan 78/F with Chronic afib, HLD, diastolic heart failure here with acute hypoxic resp failure d/t covid; continues with bouts of AFib with RVR 1.Acute Hypoxic respiratory failure secondary to COVID-19 -declined remdesevir, -continue O2 titrate to maintain sats greater than equal to 92% -continue Dexamethasone.(5) 2.Permanent Atrial fibrillation with rapid ventricular response -increase Cardizem CD to 360 daily -continue Xarelto as ordered -adjust therapies as clinically indicated -await Cardiology 3.Chronic diastolic congestive heart failure -not a factor this admission -continue outpatient therapies Xarelto. Full. Requires inpatient therapy for IV dexamethasone to treat COVID-19 symptoms and specialty consultation for poorly controlled atrial fibrillation with rapid ventricular response Quality Stroke Does the patient have a stroke diagnosis?: No VTE Prior VTE?: No VTE Risk Level:: Medical - moderate - high VTE Device Contraindication: Treatment Not Indicated VTE Drug Contraindication: N/A - Med Ordered
--- NOTE | 2023-09-07 12:45 | PM.PNCARD ---
Subjective Subjective Date of Service: 09/07/23 Principal diagnosis: Atrial fibrillation rapid ventricular response Interval history: Patient is minimally symptomatic at this point time appears mildly more short of breath. However currently denies any prolonged palpitation irregular. Currently resting heart rate still elevated 100-110. Cardizem is increased to 360 mg daily. Review of Systems Constitutional: Reports fatigue and Reports lethargy Eyes: Reports no additional eye complaints Cardiovascular: Denies chest pain, Reports rapid heart rate, Denies lightheadedness, Denies Loss of Consciousness and Reports dyspnea on exertion Respiratory: Reports dyspnea on exertion Musculoskeletal: Reports no additional musculoskeletal complaints Skin/Breast: Reports system reviewed and no additional complaints, except as docu Reports system reviewed and no additional complaints, except as documented Endocrine: Reports fatigue Physical Exam Vital Signs: Last Vital Signs Temp 97.3 F 09/07/23 11:59 Pulse 105 H 09/07/23 11:59 Resp 20 09/07/23 11:59 BP 107/55 L 09/07/23 11:59 Pulse Ox 96 09/07/23 11:59 O2 Del Method Room Air 09/07/23 11:59 O2 Flow Rate 2 09/05/23 19:49 BMI result Body Mass Index 22.1 GENERAL APPEARANCE: in no acute distress, pleasant. NECK: no carotid bruit, no jugular venous distention. SKIN: no suspicious lesions, warm and dry. HEART: no murmurs, irregular rate and rhythm. LUNGS: clear to auscultation bilaterally. ABDOMEN: soft, nontender. EXTREMITIES: no edema. PERIPHERAL PULSES: equal. NEUROLOGIC: No gross deficits, AAO X 3 Objective Labs and Meds 09/07/23 06:35 09/07/23 06:35 Lab results: Laboratory Results - last 24 hr 09/07/23 06:35 WBC 8.9 RBC 4.27 Hgb 13.8 Hct 40.5 MCV 94.8 MCH 32.3 MCHC 34.1 RDW 11.8 Plt Count 221 D MPV 9.6 Immature Gran % (Auto) 0.7 H Neut % (Auto) 81.1 H Lymph % (Auto) 11.0 L [place] % (Auto) 7.0 Eos % (Auto) 0.0 Baso % (Auto) 0.2 Lymph # (Auto) 1.0 L [place] # (Auto) 0.6 Eos # (Auto) 0.0 Baso # (Auto) 0.0 Abs Immat Gran (auto) 0.06 H Absolute Neuts (auto) 7.2 Absolute Nucleated RBC 0.000 Nucleated RBC % (auto) 0.0 Sodium 139 Potassium 3.6 Chloride 107 Carbon Dioxide 23 Anion Gap 13 BUN 32 H Creatinine 0.85 Estim Creat Clear Calc 44.4 Estimated GFR > 60 Fasting Glucose 114 H Calcium 9.0 Total Bilirubin 0.8 AST 18 ALT 20 Alkaline Phosphatase 55 Total Protein 6.8 Albumin 3.9 Progress Note: A&P Assessment and plan (1) Atrial fibrillation with rapid ventricular response: Status: Acute Assessment and Plan: Recurrent atrial fibrillation most likely triggered by her systemic infection. She has significant underlying structural pathology with left atrium that makes rhythm control unlikely and has had intolerance to multiple agents including flecainide and amiodarone. She is currently on full dose carvedilol as well as 360 mg of Cardizem CD. Rate is still borderline controlled. For now continue supportive care and treatment of her underlying viral syndrome. She has currently not in overt heart failure. Continue full oral anticoagulation with Xarelto. Will require AV estiven ablation with pacemaker placement, will need to be done as an outpatient once her COVID infection is clear. Will discuss with EPS to schedule this in the near future as outpatient. Will follow with you Time Spent With Patient Time: Total time managing care of this patient today ____ minutes. Progress Note: Quality Stroke Does the patient have a stroke diagnosis?: No Procedures Date of Service Date of Service: 09/07/23
--- NOTE | 2023-09-07 13:57 | MHC.CM.PN ---
Pt requires continued treatment for COVID 19, and cardiology consultation for AFib with RVR. CM to follow and assist with DC plan.
--- NOTE | 2023-09-07 15:08 | PC.NURSE ---
Assumed care of patient at this time.
[2023-09-07 16:15] VITALS: BP 104/53; PULSE 77; RESP 20; TEMP 36.6; O2SAT 95
[2023-09-07] MEDS: Rivaroxaban 15 MG TABLET PO (16:51)
[2023-09-07 19:23] VITALS: BP 125/71; PULSE 100; RESP 18; TEMP 36.3; O2SAT 95
[2023-09-07] MEDS: Montelukast Sodium 10 MG TABLET PO (20:43)
[2023-09-07] MEDS: Magnesium Oxide 400 MG TABLET 200 MG PO (20:43)
[2023-09-07] MEDS: Omeprazole 40 MG CAPSULE.DR PO (20:43)
[2023-09-07] MEDS: Gabapentin 300 MG CAPSULE 600 MG PO (20:43)
[2023-09-07 23:21] VITALS: BP 128/80; PULSE 75; RESP 18; TEMP 36.6; O2SAT 96
[2023-09-08 03:30] VITALS: BP 157/77; PULSE 106; RESP 18; TEMP 36.7; O2SAT 92
[2023-09-08 07:33] VITALS: BP 135/91; PULSE 120; RESP 18; TEMP 36.7; O2SAT 95
[2023-09-08] MEDS: Multivitamin TABLET 1 TAB PO (09:09)
[2023-09-08] MEDS: Atorvastatin Calcium 40 MG TABLET PO (09:09)
[2023-09-08] MEDS: dexAMETHasone sod phosphate 4 MG/ML VIAL 6 MG IVPUSH (09:09)
[2023-09-08] MEDS: Ascorbic Acid 500 MG TABLET 1000 MG PO (09:09)
[2023-09-08] MEDS: Furosemide 40 MG TABLET PO (09:09)
[2023-09-08] MEDS: dilTIAZem HCL CD 180 MG CAP.ER.24H 360 MG PO (09:09)
[2023-09-08] MEDS: Cholecalciferol (Vitamin D3) 25 MCG TABLET PO (09:09)
[2023-09-08] MEDS: 0.9 % Sodium Chloride Flush 3 ML SYRINGE IVFLUSH ×2 (09:10→18:16)
[2023-09-08] MEDS: Empagliflozin 10 MG TABLET PO (09:10)
[2023-09-08] MEDS: carvediloL 25 MG TABLET PO ×2 (09:10→18:16)
[2023-09-08] MEDS: Vitamin E (Dl,Tocopheryl Acet) 180 MG (400 UNIT) CAPSULE PO (09:10)
--- NOTE | 2023-09-08 10:35 | PM.PNCARD ---
Subjective Subjective Date of Service: 09/08/23 Principal diagnosis: Atrial fibrillation rapid ventricular response Interval history: Persist with elevated heart rate. No other cardiac symptoms. She is very frustrated. No respiratory symptoms. No respiratory distress. Review of Systems Review of Systems Yes all other systems are reviewed and are negative Physical Exam Vital Signs: Last Vital Signs Temp 98.1 F 09/08/23 07:33 Pulse 120 H 09/08/23 07:33 Resp 18 09/08/23 07:33 BP 135/91 H 09/08/23 07:33 Pulse Ox 95 09/08/23 07:33 O2 Del Method Room Air 09/08/23 07:33 O2 Flow Rate 2 09/05/23 19:49 BMI result Body Mass Index 22.1 GENERAL APPEARANCE: in no acute distress, pleasant. NECK: no carotid bruit, no jugular venous distention. SKIN: no suspicious lesions, warm and dry. HEART: no murmurs, irregular rate and rhythm. LUNGS: clear to auscultation bilaterally. ABDOMEN: soft, nontender. EXTREMITIES: no edema. PERIPHERAL PULSES: equal. NEUROLOGIC: No gross deficits, AAO X 3 Objective Labs and Meds 09/07/23 06:35 09/07/23 06:35 Progress Note: A&P Assessment and plan (1) Atrial fibrillation with rapid ventricular response: Status: Acute Assessment and Plan: Atrial fibrillation with difficult control rate despite high doses of carvedilol and Cardizem therapy. Overall options are limited. She has failed rhythm control approach and intolerance to several antiarrhythmic drugs. Options include digoxin which is approved for rate control and Multaq which would be a temporary drug till she gets AV estiven ablation and pacemaker placement. Discussed with EPS, they will schedule her as soon as possible although dates are not sure. She has no signs or symptoms of heart failure. Continue full oral anticoagulation, currently on Xarelto. Continue supportive care. Patient agreed to be started on digoxin and will give her digoxin load 0.25 mg IV push q.6 hours x3 doses and started on maintenance of lower than prior dose of 0.125 mg daily. Will continue to follow with you Time Spent With Patient Time: Total time managing care of this patient today ____ minutes. Progress Note: Quality Stroke Does the patient have a stroke diagnosis?: No Procedures Date of Service Date of Service: 09/08/23
[2023-09-08 11:28] VITALS: BP 119/68; PULSE 93; RESP 17; TEMP 36.2; O2SAT 91
--- NOTE | 2023-09-08 12:15 | P.PNIM_ITS ---
Subjective Subjective Date of Service: 09/08/23 Interval History: Rate continues to be labile. Patient asymptomatic when rate is rapid. Voices no complaints Review of Systems Denies chest pain Denies shortness of breath Denies nausea vomiting diarrhea Denies fever chills Physical Exam 2 Vital Signs: Vital Signs: Last Vital Signs Temp 97.1 F 09/08/23 11:28 Pulse 93 09/08/23 11:28 Resp 17 09/08/23 11:28 BP 119/68 09/08/23 11:28 Pulse Ox 91 L 09/08/23 11:28 O2 Del Method Room Air 09/08/23 11:28 O2 Flow Rate 2 09/05/23 19:49 BMI result Body Mass Index 22.1 Const: Other: Awake alert oriented x3 no acute distress Resp: Other: Clear to auscultation bilaterally no rales rhonchi wheezes Cardio: Other: No S4; positive S1-S2; no S3 murmurs rubs or gallops GI: Other: Soft nontender nondistended normoactive bowel sounds Extrem: Other: No edema bilaterally Objective Data Active Medications Acetaminophen (Acetaminophen 325 Mg Tablet) 650 mg PO Q6H PRN PRN Reason: Pain, Mild (Pain Scale 1-3) Albuterol/Ipratropium (Albuterol/Iprat 2.5/0.5mg 3 Ml Ampul.Neb) 3 ml INHALE Q4H PRN PRN Reason: Shortness of Breath/Wheezing Ascorbic Acid (Ascorbic Acid 500 Mg Tablet) 1,000 mg PO DAILY [facility] Last Admin: 09/08/23 09:09 Dose: 1,000 mg Documented By: KASI Atorvastatin Calcium (Atorvastatin Calcium 40 Mg Tablet) 40 mg PO DAILY [facility] Last Admin: 09/08/23 09:09 Dose: 40 mg Documented By: KASI Carvedilol (Carvedilol 25 Mg Tablet) 25 mg PO BIDWM [facility]; Protocol Last Admin: 09/08/23 09:10 Dose: 25 mg Documented By: KASI Dexamethasone Sodium Phosphate (Dexamethasone Sod Phosphate 4 Mg/Ml Vial) 6 mg IVPUSH DAILY [facility] Last Admin: 09/08/23 09:09 Dose: 6 mg Documented By: KASI Digoxin (Digoxin 0.5 Mg/2 Ml Ampul) 0.25 mg IVPUSH Q6H [facility] Stop: 09/08/23 17:31 Digoxin (Digoxin 0.125 Mg Tablet) 0.125 mg PO DAILY [facility] Diltiazem HCl (Diltiazem Hcl Cd 180 Mg Cap.Er.24h) 360 mg PO DAILY [facility]; Protocol Last Admin: 09/08/23 09:09 Dose: 360 mg Documented By: KASI Empagliflozin (Empagliflozin 10 Mg Tablet) 10 mg PO DAILY [facility] Last Admin: 09/08/23 09:10 Dose: 10 mg Documented By: KASI Furosemide (Furosemide 40 Mg Tablet) 40 mg PO DAILY [facility]; Protocol Last Admin: 09/08/23 09:09 Dose: 40 mg Documented By: KASI Gabapentin (Gabapentin 300 Mg Capsule) 600 mg PO BEDTIME [facility] Last Admin: 09/07/23 20:43 Dose: 600 mg Documented By: EULALIA Magnesium Oxide (Magnesium Oxide 400 Mg Tablet) 200 mg PO BEDTIME [facility] Last Admin: 09/07/23 20:43 Dose: 200 mg Documented By: EULALIA Montelukast Sodium (Montelukast Sodium 10 Mg Tablet) 10 mg PO BEDTIME [facility] Last Admin: 09/07/23 20:43 Dose: 10 mg Documented By: EULALIA Multivitamins/Vitamin C (Multivitamin Tablet) 1 tab PO DAILY [facility] Last Admin: 09/08/23 09:09 Dose: 1 tab Documented By: KASI Omeprazole (Omeprazole 40 Mg Capsule.Dr) 40 mg PO BEDTIME [facility] Last Admin: 09/07/23 20:43 Dose: 40 mg Documented By: EULALIA Ondansetron HCl (Ondansetron Hcl 4 Mg/2 Ml Vial) 4 mg IVPUSH Q8H PRN PRN Reason: Nausea and Vomiting Last Admin: 09/04/23 08:31 Dose: 4 mg Documented By: RANJAN Rivaroxaban (Rivaroxaban 15 Mg Tablet) 15 mg PO DAILY@1700 [facility] Last Admin: 09/07/23 16:51 Dose: 15 mg Documented By: EULALIA Sodium Chloride (0.9 % Sodium Chloride Flush 3 Ml Syringe) 3 ml IVFLUSH QSHIFT [facility] Last Admin: 09/08/23 09:10 Dose: 3 ml Documented By: KASI Vitamin D (Cholecalciferol (Vitamin D3) 25 Mcg Tablet) 25 mcg PO DAILY [facility] Last Admin: 09/08/23 09:09 Dose: 25 mcg Documented By: KASI Vitamin E (Vitamin E (Dl,Tocopheryl Acet) 180 Mg (400 Unit) Capsule) 180 mg PO DAILY [facility] Last Admin: 09/08/23 09:10 Dose: 180 mg Documented By: KASI Labs 09/07/23 06:35 09/07/23 06:35 Assessment and Plan (1) Hypoxic respiratory failure: Status: Acute (2) COVID-19: Status: Acute (3) Atrial fibrillation with rapid ventricular response: Status: Acute Plan 78/F with Chronic afib, HLD, diastolic heart failure here with acute hypoxic resp failure d/t covid; continues with bouts of AFib with RVR 1.Acute Hypoxic respiratory failure secondary to COVID-19 -declined remdesevir, -continue O2 titrate to maintain sats greater than equal to 92% -continue Dexamethasone.(6) 2.Permanent Atrial fibrillation with rapid ventricular response -increased Cardizem CD to 360 daily... Fair response -continue Xarelto as ordered -as per cardiology IV dig load followed by 0.125 daily -outpatient ablation/pacer 3.Chronic diastolic congestive heart failure -not a factor this admission -continue outpatient therapies Xarelto. Full. Requires inpatient therapy for IV dexamethasone to treat COVID-19 symptoms and specialty consultation for poorly controlled atrial fibrillation with rapid ventricular response Quality Stroke Does the patient have a stroke diagnosis?: No VTE Prior VTE?: No VTE Risk Level:: Medical - moderate - high VTE Device Contraindication: Treatment Not Indicated VTE Drug Contraindication: N/A - Med Ordered
[2023-09-08] MEDS: Digoxin 0.5 MG/2 ML AMPUL 0.25 MG IVPUSH ×2 (12:16→18:16)
[2023-09-08 15:48] VITALS: BP 132/77; PULSE 79; RESP 18; TEMP 35.9; O2SAT 94
[2023-09-08] MEDS: Rivaroxaban 15 MG TABLET PO (18:16)
[2023-09-08 19:54] VITALS: BP 129/79; PULSE 88; RESP 17; TEMP 36.1; O2SAT 94
[2023-09-08] MEDS: Magnesium Oxide 400 MG TABLET 200 MG PO (20:56)
[2023-09-08] MEDS: Omeprazole 40 MG CAPSULE.DR PO (20:56)
[2023-09-08] MEDS: Gabapentin 300 MG CAPSULE 600 MG PO (20:56)
[2023-09-08] MEDS: Montelukast Sodium 10 MG TABLET PO (20:57)
[2023-09-08 23:52] VITALS: BP 133/91; PULSE 77; RESP 20; TEMP 36.4; O2SAT 94
[2023-09-09] MEDS: 0.9 % Sodium Chloride Flush 3 ML SYRINGE IVFLUSH (00:04)
[2023-09-09 03:32] VITALS: BP 135/88; PULSE 73; RESP 20; TEMP 36.1; O2SAT 94
[2023-09-09 07:27] VITALS: BP 171/105; PULSE 66; RESP 16; TEMP 36.7; O2SAT 94
[2023-09-09] MEDS: dexAMETHasone sod phosphate 4 MG/ML VIAL 6 MG IVPUSH (09:18)
[2023-09-09] MEDS: Multivitamin TABLET 1 TAB PO (09:18)
[2023-09-09] MEDS: Ascorbic Acid 500 MG TABLET 1000 MG PO (09:19)
[2023-09-09] MEDS: carvediloL 25 MG TABLET PO (09:19)
[2023-09-09] MEDS: Vitamin E (Dl,Tocopheryl Acet) 180 MG (400 UNIT) CAPSULE PO (09:19)
[2023-09-09] MEDS: Furosemide 40 MG TABLET PO (09:19)
[2023-09-09] MEDS: Atorvastatin Calcium 40 MG TABLET PO (09:19)
[2023-09-09] MEDS: dilTIAZem HCL CD 180 MG CAP.ER.24H 360 MG PO (09:19)
[2023-09-09] MEDS: Cholecalciferol (Vitamin D3) 25 MCG TABLET PO (09:19)
[2023-09-09] MEDS: Digoxin 0.125 MG TABLET PO (09:19)
[2023-09-09] MEDS: Empagliflozin 10 MG TABLET PO (09:19)
--- NOTE | 2023-09-09 09:54 | PM.PNCARD ---
Subjective Subjective Date of Service: 09/09/23 Principal diagnosis: Atrial fibrillation rapid ventricular response Interval history: Rate is finally well controlled after addition of digoxin. Started on 0.125 mg digoxin. Patient very anxious about digoxin. Blood pressure is elevated. Denies any chest pain or worsening shortness of breath. Review of Systems Review of Systems Yes all other systems are reviewed and are negative Physical Exam Vital Signs: Last Vital Signs Temp 98.0 F 09/09/23 07:27 Pulse 66 09/09/23 07:27 Resp 16 09/09/23 07:27 BP 171/105 H 09/09/23 07:27 Pulse Ox 94 09/09/23 07:27 O2 Del Method Room Air 09/09/23 07:27 O2 Flow Rate 2 09/05/23 19:49 BMI result Body Mass Index 22.1 GENERAL APPEARANCE: in no acute distress, pleasant. NECK: no carotid bruit, no jugular venous distention. SKIN: no suspicious lesions, warm and dry. HEART: no murmurs, irregular rate and rhythm. LUNGS: clear to auscultation bilaterally. ABDOMEN: soft, nontender. EXTREMITIES: no edema. PERIPHERAL PULSES: equal. NEUROLOGIC: No gross deficits, AAO X 3 Objective Labs and Meds 09/07/23 06:35 09/07/23 06:35 Progress Note: A&P Assessment and plan (1) Atrial fibrillation with rapid ventricular response: Status: Acute Assessment and Plan: Atrial fibrillation with difficult control rate despite high dose of Cardizem, carvedilol and not addition of digoxin. She is very worried about digoxin toxicity. Discussed that her doses going to be half like it was in the past. Likelihood of digoxin toxicity is low. And also the duration of digoxin treatment is going to be short. Have discussed with EPS were going to try to schedule her next week for AV estiven ablation and pacemaker placement. Continue full oral anticoagulation, currently on Xarelto. Discussed about stress mitigation strategy and reducing her anxiety which she will only make her heart rate higher and blood pressure higher. (2) Chronic heart failure with preserved ejection fraction (HFpEF): Status: Acute Assessment and Plan: Heart failure preserved ejection fraction, clinically euvolemic and well compensated. Continue current diuretic dose. Continue rate control for atrial fibrillation. Will follow up in the clinic after her EP procedure in 6 weeks time. Thank you for allowing me to partake in the care Time Spent With Patient Time: Total time managing care of this patient today ____ minutes. Progress Note: Quality Stroke Does the patient have a stroke diagnosis?: No Procedures Date of Service Date of Service: 09/09/23
[2023-09-09 11:43] VITALS: BP 110/69; PULSE 95; RESP 20; TEMP 36.3; O2SAT 94
--- NOTE | 2023-09-09 12:29 | P.DS_ITS ---
DS: Providers Provider Date of Service: 09/09/23 Date of admission: 09/03/23 21:29 Date of discharge: 09/09/23 Primary care physician: Yair Huff MD Consults: 09/06/23 11:01 Consult to Cardiology Stat Consulting [place] [facility] [place] Reason for consultation: AFib w/RVR Has provider been notified: Yes DS: Diagnosis Discharge Diagnosis (1) Atrial fibrillation with rapid ventricular response: Status: Acute (2) Chronic heart failure with preserved ejection fraction (HFpEF): Status: Acute DS: Summary Hospital Course Hospital Course: 78 years old woman with past medical history significant for atrial fibrillation on Xarelto, diastolic congestive heart failure and hypertension presents to the emergency department complaining of palpitations, nausea, vomiting and fever that started last night. She denied any associated chest pain, cough, headache and sore throat. She denied any gastrointestinal or genitourinary symptoms. She also has a history of a recent left proximal humerus fracture. She denied tobacco smoking, alcohol abuse or illicit drug use. In the ED, she was found to have tachycardia consistent with atrial fibrillation with rapid ventricular response. Heart rate was in the 140s. Her oxygen saturation was 88% on room air. She is now requiring 4 liters/minute supplemental oxygen. Blood workup is remarkable for mild metabolic acidosis. Creatinine is 1.15. LFTs are normal. There is no leukocytosis. Hemoglobin is normal. Viral testing is positive for COVID-19. CXR showed no definitive acute focal pneumonia or edema. ED tx: Diltiazem 20 mg IV, diltiazem 60 mg p.o., Zofran 4 mg IV, NS 1 L bolus, dexamethasone 6 mg IV. Hospital course Patient was admitted to telemetry where her ventricular response rate continued to be labile despite her therapies. CV seen in consultation by Cardiology who recommended increasing the Cardizem CD to 360. As far as COVID is concerned, she did very well on the dexamethasone and does not have a O2 requirement at this time. She was seen in consultation by her own workers compensation manager Dr. Brennan and a decision was made to digital load her and send her out on 0.125 mg. She was hesitant as per past episodes however she will be scheduled for ablation within the week and she is reassured that the digits half her dose. With addition of the digoxin, her heart rate was much more managed. She will be discharged home and Cardiology will contact her to arrange for her estiven ablation and pacer implantation. She can follow-up with Cardiology thereafter and her PCP as indicated Time Attestation Discharge coordination time: Greater than 30 minutes Quality: Safe Use of Opioids Does Pt have an Active Cancer Diagnosis on the Problem List?: No Quality: Stroke Does the patient have a stroke diagnosis?: No Physical Exam Vital Signs: Vital Signs: Last Vital Signs Temp 97.3 F 09/09/23 11:43 Pulse 95 09/09/23 11:43 Resp 20 09/09/23 11:43 BP 110/69 09/09/23 11:43 Pulse Ox 94 09/09/23 11:43 O2 Del Method Room Air 09/09/23 11:43 O2 Flow Rate 2 09/05/23 19:49 BMI result Body Mass Index 22.1 Const: Other: Awake alert oriented x3 no acute distress Resp: Other: Clear to auscultation bilaterally no rales rhonchi wheezes Cardio: Other: No S4; positive S1-S2; no S3 murmurs rubs or gallops GI: Other: Soft nontender nondistended normoactive bowel sounds Extrem: Other: No edema bilaterally DS: Data Data Completed and Pending Completed studies during hospitalization [Text1]: Procedures Replacement of Left Hip Joint, Femoral Surface with Synthetic Substitute, Uncemented, Open Approach (12/18/22) Spiritism of Cardiac Rhythm, Single (09/10/22) Transfusion of Nonautologous Red Blood Cells into Peripheral Vein, Percutaneous Approach (12/18/22) Ultrasonography of Heart with Aorta, Transesophageal (07/27/21) Discharge Plan Discharge Anticipated Discharge Date/Time: 09/09/23 12:26 Patient Disposition: Home Health Service Discharge Diagnosis: Atrial fibrillation with rapid ventricular response Referrals: Yair Huff MD [Primary Care Provider] - 1 Week Discharge Medications: New diltiazem HCl [Cardizem CD] 180 mg Capsule,Extended Release 24hr 360 mg PO DAILY Qty: 30 0RF Protocol: Hold for SBP/HR < HOLD for SBP < : 90 HOLD for HR < : 60 digoxin 125 mcg (0.125 mg) Tablet 0.125 mg PO DAILY Qty: 30 0RF Continued ipratropium-albuterol 0.5 mg-3 mg(2.5 mg base)/3 mL solution for nebulization 3 ml inhalation Q4-6H PRN (Reason: for wheezing) Qty: 180 0RF atorvastatin 40 mg tablet 40 mg PO DAILY Qty: 90 3RF rivaroxaban 15 mg tablet 15 mg PO DAILY@1700 Qty: 90 3RF Rx Instructions: Dosing changed from 20 mg to 15 mg daily Jardiance 10 mg tablet 10 mg PO DAILY 90 Days Qty: 90 3RF coenzyme Q10 100 mg Tablet 100 mg PO DAILY multivitamin Tablet 1 tab PO DAILY magnesium 250 mg Tablet 250 mg PO BEDTIME vitamin E (dl, acetate) 180 mg (400 unit) Capsule 180 mg PO DAILY ascorbic acid (vitamin C) 500 mg Tablet 1,000 mg PO DAILY omeprazole 40 mg Capsule,Delayed Release(Dr/Ec) 40 mg PO BEDTIME furosemide 40 mg Tablet 40 mg PO DAILY carvedilol 25 mg Tablet 25 mg PO BIDWM Qty: 60 1RF Protocol: Hold for SBP/HR < HOLD for SBP < : 90 HOLD for HR < : 60 diltiazem HCl [DILT-XR] 240 mg capsule,ext.rel 24h degradable 240 mg PO DAILY Qty: 60 1RF promethazine [Promethegan] 25 mg suppository 25 mg OH Q6H PRN (Reason: nausea/vomiting) cholecalciferol (vitamin D3) [Vitamin D3] 25 mcg (1,000 unit) Capsule 25 mcg PO DAILY montelukast 10 mg tablet 10 mg PO BEDTIME gabapentin 300 mg capsule 600 mg PO BEDTIME fexofenadine [Shea Allergy] 180 mg tablet 180 mg PO DAILY turmeric 400 mg capsule 400 mg PO DAILY@1200 meloxicam 15 mg tablet 15 mg PO DAILY Discharge Orders: Discharge Order (Routine); Ordered 09/09/23 Ordered By: Tien Gallo Diet: Advance to usual diet Activity on Discharge: As tolerated Stand Alone Forms: Patient Portal Discharge page Care Plan Goals: Continue all previous medications as taken before hospital Health Concerns: Your Cardizem CD has been increased to 360 mg daily and digoxin 0.125 has been added to your regimen (short-term) Plan of Treatment: Dr. Brennan is arranging an AV node ablation with pacer implantation within the next week or so. They will contact you with details Assessment: See discharge summary
--- NOTE | 2023-09-09 12:39 | MHC.CM.PN ---
Second IMM 09/09/23, Pt has been medically cleared for DC, she will go home via private transport, DC plan is home, self care.
== END 2023-09-09 15:21 | disposition home health service (06) | DRG 177 ==
LOC: HO.ED 20:33 → HO.EDOVER 21:42 → HO.IMC 09-04 17:02
PROVIDERS: Physician Assistant Medical; Student in an Organized Health Care Education/Training Program; Admitting Provider Internal Medicine; Emergency Provider Emergency Medicine; PCP Family Medicine; Visit Provider Hospitalist
DX: U07.1 COVID-19 (principal); J96.01 Acute respiratory failure with hypoxia; E87.20 Acidosis, unspecified; I50.32 Chronic diastolic (congestive) heart failure; I48.21 Permanent atrial fibrillation; E78.5 Hyperlipidemia, unspecified; K21.9 Gastro-esophageal reflux disease without esophagitis; G62.9 Polyneuropathy, unspecified; I11.0 Hypertensive heart disease with heart failure; Z79.01 Long term (current) use of anticoagulants; Z79.899 Other long term (current) drug therapy
CPT/HCPCS: 36415; 71045; 80048; 80053; 82550; 83615; 83690; 83735; 84484; 85025; 85379; 85610; 85730; 86140; 87502; 87635; 93005; 99285; J1100; J1160; J2405

== ENCOUNTER → 2023-09-03 17:09 | Outpatient (BNV) | payer MEDICARE, SELFPAY | PROVIDERS: Admitting Provider Internal Medicine; Emergency Provider Emergency Medicine; PCP Family Medicine; Visit Provider Internal Medicine Cardiovascular Disease | DX: I48.91 Unspecified atrial fibrillation (principal); R94.31 Abnormal electrocardiogram [ECG] [EKG] | CPT/HCPCS: 93010 ==

== ENCOUNTER 2023-09-03 21:29 | Outpatient (BNV) | payer MEDICARE, SELFPAY | END 2023-09-04 09:00 | PROVIDERS: Admitting Provider Internal Medicine; Emergency Provider Emergency Medicine; PCP Family Medicine; Visit Provider Internal Medicine Cardiovascular Disease | DX: I44.2 Atrioventricular block, complete (principal); R94.31 Abnormal electrocardiogram [ECG] [EKG] | CPT/HCPCS: 93010 ==

== ENCOUNTER → 2023-09-03 21:29 | Outpatient (BNV) | payer MEDICARE, SELFPAY | PROVIDERS: Admitting Provider Internal Medicine; Emergency Provider Emergency Medicine; PCP Family Medicine; Visit Provider Internal Medicine | DX: U07.1 COVID-19 (principal); J96.01 Acute respiratory failure with hypoxia; I48.91 Unspecified atrial fibrillation; I50.32 Chronic diastolic (congestive) heart failure | CPT/HCPCS: 99223; 99232; 99233; 99239; 99499 ==

== ENCOUNTER → 2023-09-03 21:29 | Outpatient (BNV) | payer MEDICARE, SELFPAY | PROVIDERS: Admitting Provider Internal Medicine; Emergency Provider Emergency Medicine; PCP Family Medicine; Visit Provider Internal Medicine Cardiovascular Disease | DX: I48.91 Unspecified atrial fibrillation (principal); I50.32 Chronic diastolic (congestive) heart failure | CPT/HCPCS: 99223; 99233 ==

== ENCOUNTER 2023-10-01 08:43 | Outpatient (REF) | payer MEDICARE, SELFPAY ==
[2023-10-01 09:39] LABS: Estimated Average Glucose 114 mg/dL; Hemoglobin A1c % 5.6 % (<6.0)
[2023-10-01 10:03] LABS: Anion Gap 15 (12-20); Blood Urea Nitrogen 19 mg/dL (9-16); Carbon Dioxide 22 mmol/L (22-29); Chloride 111 mmol/L (96-108); Estimated Glomerular Filt Rate 60; Glucose Fasting 140 mg/dL (60-99); Potassium 4.1 mmol/L (3.3-5.1); Sodium 144 mmol/L (135-145)
== END 2023-10-01 08:44 | disposition home or self-care (01) ==
LOC: HO.LAB 08:43
PROVIDERS: PCP Family Medicine; Visit Provider Family Medicine
DX: I10 Essential (primary) hypertension (principal); R73.9 Hyperglycemia, unspecified
CPT/HCPCS: 36415; 80051; 82565; 82947; 83036; 84520

== ENCOUNTER 2023-10-29 15:11 | Outpatient (AMB) | payer MEDICARE, SELFPAY ==
--- NOTE | 2023-10-29 15:22 | A.OFFVIS_ITS ---
Intake Vital Signs 10/29/23 15:27 Height 5 ft 3 in Weight 189 lb 9.561 oz BMI 33.6 BP 126/80 Blood Pressure Location Lt brachial Position Sitting Pulse 64 Intake Visit Reasons: [facility] [place] discharge follow up/New Medtronic device check Intake Note: Follow-up after new Medtronic pacemaker Workforce Management Coordinator Required: No Allergies aspirin [ASPIRIN] Allergy (Unknown, Verified 09/03/23 17:04) RASH Sulfa (Sulfonamide Antibiotics) [SULFA (SULFONAMIDE ANTIBIOTICS)] Allergy (Unknown, Verified 09/03/23 17:04) RASH flecainide Adverse Reaction (Intermediate, Verified 09/03/23 17:04) Dizziness amiodarone Adverse Reaction (Mild, Verified 09/03/23 17:04) Dizziness Digitalis Glycosides Adverse Reaction (Verified 09/03/23 17:04) Confusion adhesives Adverse Reaction (Uncoded 04/06/23 10:34) Unknown Medication List - Last Reconciled 10/29/23 by Franco Brennan MD ascorbic acid (vitamin C) 1,000 mg PO DAILY atorvastatin 40 mg PO DAILY carvedilol 25 mg See Protocol PO BIDWM cholecalciferol (vitamin D3) (Vitamin D3) 25 mcg PO DAILY coenzyme Q10 100 mg PO DAILY empagliflozin (Jardiance) 10 mg PO DAILY 90 days fexofenadine (Shea Allergy) 180 mg PO DAILY furosemide 40 mg PO DAILY gabapentin 600 mg PO BEDTIME ipratropium-albuterol 0.5 mg-3 mg(2.5 mg base)/3 mL 3 mL inhalation Q4-6H PRN magnesium 250 mg PO BEDTIME meloxicam 15 mg PO DAILY montelukast 10 mg PO BEDTIME multivitamin 1 tab PO DAILY omeprazole 40 mg PO BEDTIME promethazine (Promethegan) 25 mg MO Q6H PRN rivaroxaban 15 mg PO DAILY@1700 turmeric 400 mg PO DAILY@1200 vitamin E (dl, acetate) 180 mg PO DAILY HPI HPI Comments History of Present Illness Details Chiquita comes for follow-up. She says overall she has been doing well. Two days ago she did see electrophysiology service and they made pacer adjustment. It seems like they turned on the rate response. Prior to that her heart rate was remaining the 60s. However since then her heart rate is going up to 100 beats per minute. She feels more energy and less short of breath. Denies any orthopnea, PND, leg edema. Takes all her medications. No blood pressure issues. [facility] Medical History (Updated 10/29/23 @ 15:58 by Franco Brennan MD) (HFpEF) heart failure with preserved ejection fraction Cardiac pacemaker in situ Permanent atrial fibrillation Paroxysmal atrial fibrillation Preoperative cardiovascular examination NSTEMI (non-ST elevated myocardial infarction) Pulmonary hypertension Chronic heart failure with preserved ejection fraction (HFpEF) Chronic heart failure with preserved ejection fraction (HFpEF) Cardiomyopathy Pulmonary hypertension Diastolic dysfunction History of cardiomyopathy HTN (hypertension) History of cardioversion Surgical History S/P cardiac catheterization Hx of total hip arthroplasty Hx of cardiac cath Hx of hand surgery History of back surgery Family History Father Cancer Mother Stroke Brother Atrial fibrillation Sister Cardiovascular disease Atrial fibrillation Social History Household Members: None Housing: House Do you presently have visiting nurse or other home services: No Unable to assess alcohol history related to: Unknown Alcohol intake: former Comment: pt refusing bed alarm Patient Tobacco Use Status: Never used Tobacco Second Hand Smoke Exposure: No Advance Directives Date on File: 12/18/22 service: No Current occupational status: retired Review of Systems Const Denies chills, Denies fatigue, Denies fever(s), Denies frequent falls, Denies weakness, Denies weight gain and Denies weight loss ENT Denies dizziness Card Denies chest pain, Denies leg edema, Denies lightheadedness, Denies palpitations, Denies dyspnea, Denies dyspnea on exertion, Denies orthopnea and Denies other (loss of consciousness) Resp Denies cough, Denies dyspnea and Denies dyspnea on exertion GI Denies hematochezia and Denies change in stool character Musc Denies abnormal gait, Denies muscle weakness, Denies numbness, Denies radiating pain into limb and Denies tingling Neuro Denies abnormal gait, Denies dizziness, Denies frequent falls, Denies numbness, Denies tingling and Denies weakness Endo Denies fatigue and Denies palpitations Physical Exam Vital Signs: Last Vital Signs Pulse 64 10/29/23 15:27 BP 126/80 10/29/23 15:27 BMI result Body Mass Index 33.6 Const General: cooperative, comfortable, no acute distress, alert and awake Nutritional Appearance: overweight Orientation/consciousness: patient oriented x3 Limitations: other limitations (In a stretcher) Neck Neck: Yes trachea midline, Yes supple and Yes no JVD Chest Chest palpation & inspection: abnormal inspection of the chest kyphotic and scoliotic Resp Effort & Inspection: normal respiratory effort Auscultation: clear to auscultation bilaterally and diminished lung sounds Cardio Jugular venous distension: no JVD Palpation: normal PMI Rate: regular rate Rhythm: regular rhythm Heart sounds: S1 normal heart sound present and S2 normal heart sound present GI Auscultation: normal bowel sounds Skin General skin exam: no rashes or lesions noted Neuro General: patient oriented x3 and no focal motor deficits Extrem General: Yes no clubbing, cyanosis or edema Psych Appearance: grossly normal Office Procedures Cardiac Device Check Cardiac Device Check Details: Single-chamber Medtronic pacemaker in place. Programmed in VVIR at 60 beats per minute. Rate response was turned on more aggressive. Ventricular pacing thresholds excellent and reprogrammed to enhance battery life. Battery life is at about 14 years. Ventricular sensing could not be checked. Pacing lead impedance is stable. [id number] Cardiac Device Check, leadless/single lead pacemaker Procedure code (CPT) selection complete Assessment & Plan Assessment & Plan (1) Permanent atrial fibrillation: Comment: Status post AV estiven ablation Code(s): I48.21 - Permanent atrial fibrillation Plan: Permanent atrial fibrillation has failed rhythm control approach. She is status post AV estiven ablation given persistent atrial fibrillation with rapid ventricular response difficult control. Continue full oral anticoagulation, currently on Xarelto. Continue monitor renal function every 3 months. Just dose accordingly. Continue carvedilol therapy for management of blood pressure as well as neurohormonal modulator. (2) Cardiac pacemaker in situ: Comment: Medtronic, single-chamber device for ventricular support post AV estiven ablation Code(s): Z95.0 - Presence of cardiac pacemaker Plan: Single-chamber cardiac pacemaker in-situ, patient pacer dependent. Pacemaker was reprogrammed for providing more rate response with activity level. Will continue monitor remotely every 3 months and follow up in the clinic in 6 months. (3) (HFpEF) heart failure with preserved ejection fraction: Code(s): I50.30 - Unspecified diastolic (congestive) heart failure Plan: Heart failure preserved ejection fraction secondary to diastolic dysfunction secondary to hypertensive heart disease and chronic atrial fibrillation. Clinically euvolemic and well compensated current diuretic dose. Management of heart failure was discussed. Daily weight monitoring avoidance of salt loading was discussed. Continue neurohormonal modulation with Jardiance. Advised to maintain activity level as tolerated. Additional diuretics as need be. Follow up in the clinic in 3 months time, sooner p.r.n.. Thank you for allowing me to partake in the care Coding Level of Care Code Est Pt Level 4 (96729) Diagnoses Permanent atrial fibrillation I48.21 Cardiac pacemaker in situ Z95.0 (HFpEF) heart failure with preserved ejection fraction I50.30 CPT Codes Cardiac Device Check - Cardiac Device 1: [id number] Cardiac Device Check, leadless/single lead pacemaker ([id number])
[2023-10-29 15:27] VITALS: BP 126/80; PULSE 64; BMI 33.6
== END 2023-10-29 15:51 | disposition home or self-care (01) ==
PROVIDERS: PCP Family Medicine; Visit Provider Internal Medicine Cardiovascular Disease
DX: I48.21 Permanent atrial fibrillation (principal); Z95.0 Presence of cardiac pacemaker; I50.30 Unspecified diastolic (congestive) heart failure
CPT/HCPCS: 93279; 99214

== ENCOUNTER 2023-10-29 15:11 | Outpatient (REF) | payer MEDICARE, SELFPAY ==
[2023-10-29 16:06] LABS: MANUAL DIFF FLAG NO
[2023-10-29 16:36] LABS: Basophils Absolute Auto 0.1 X10*3/uL (0.0-0.2); Basophils Percent Auto 0.7 % (0-2); Eosinophils Absolute Auto 0.2 X10*3/uL (0.0-0.4); Eosinophils Percent Auto 2.5 % (0-4); Hematocrit 44.4 % (37.0-47.0); Hemoglobin 14.9 g/dl (12.0-16.0); Imm Gran Abs Auto 0.01 X10*3/uL (0.00-0.03); Imm Gran Pct Auto 0.1 % (0.0-0.4); Lymphocytes Absolute Auto 1.9 X10*3/uL (1.2-4.9); Lymphocytes Percent Auto 26.8 % (20-40); Mean Corpuscular HGB Conc 33.6 g/dl (31.0-35.0); Mean Corpuscular Volume 98.2 fL (80.0-98.0); Mean Platelet Volume 9.3 fL (9.4-12.3); Monocytes Absolute Auto 0.7 X10*3/uL (0.1-1.2); Monocytes Percent Auto 10.1 % (2-11); Neutrophils Absolute Auto 4.3 x10*3/uL (2.0-8.3); Neutrophils Percent Auto 59.8 % (45-73); Platelet Count 215 X10*3/uL (160-400); Red Blood Count 4.52 X10*6/uL (4.20-5.50); Red Cell Distribution Width 13.2 % (11.0-16.0); White Blood Count 7.2 X10*3/uL (4.8-10.8)
== END 2023-10-29 15:12 | disposition home or self-care (01) ==
LOC: HO.LAB 15:11
PROVIDERS: Absent Provider Family Medicine; PCP Family Medicine; Visit Provider Internal Medicine Cardiovascular Disease
DX: R06.02 Shortness of breath (principal); I48.21 Permanent atrial fibrillation; I48.0 Paroxysmal atrial fibrillation; I11.0 Hypertensive heart disease with heart failure; I50.32 Chronic diastolic (congestive) heart failure; I21.4 Non-ST elevation (NSTEMI) myocardial infarction; Z79.01 Long term (current) use of anticoagulants; Z98.890 Other specified postprocedural states; Z45.010 Encounter for checking and testing of cardiac pacemaker pulse generator [battery]
CPT/HCPCS: 36415; 85025; 99212

== ENCOUNTER 2024-01-07 09:04 | Outpatient (REF) | payer MEDICARE, SELFPAY ==
[2024-01-07 09:24] LABS: MANUAL DIFF FLAG NO
[2024-01-07 10:47] LABS: Basophils Percent Auto 0.5 % (0-2); Eosinophils Absolute Auto 0.2 X10*3/uL (0.0-0.4); Eosinophils Percent Auto 2.9 % (0-4); Hematocrit 43.4 % (37.0-47.0); Hemoglobin 14.8 g/dl (12.0-16.0); Imm Gran Abs Auto 0.02 X10*3/uL (0.00-0.03); Imm Gran Pct Auto 0.3 % (0.0-0.4); Lymphocytes Absolute Auto 1.4 X10*3/uL (1.2-4.9); Mean Corpuscular HGB Conc 34.1 g/dl (31.0-35.0); Mean Corpuscular Hemoglobin 33.2 pg (27.0-33.0); Mean Corpuscular Volume 97.3 fL (80.0-98.0); Mean Platelet Volume 9.6 fL (9.4-12.3); Monocytes Absolute Auto 0.7 X10*3/uL (0.1-1.2); Monocytes Percent Auto 10.3 % (2-11); Platelet Count 184 X10*3/uL (160-400); Red Blood Count 4.46 X10*6/uL (4.20-5.50); Red Cell Distribution Width 11.9 % (11.0-16.0); White Blood Count 6.3 X10*3/uL (4.8-10.8)
[2024-01-07 11:18] LABS: Alanine Aminotransferase 19 U/L (0-31); Anion Gap 13 (12-20); Aspartate Amino Transferase 21 U/L (5-31); Blood Urea Nitrogen 29 mg/dL (9-16); Carbon Dioxide 19 mmol/L (22-29); Chloride 115 mmol/L (96-108); Estimated Glomerular Filt Rate 53; Potassium 4.3 mmol/L (3.3-5.1); Sodium 143 mmol/L (135-145)
== END 2024-01-07 09:05 | disposition home or self-care (01) ==
LOC: HO.LAB 09:04
PROVIDERS: PCP Family Medicine; Visit Provider Family Medicine
DX: I10 Essential (primary) hypertension (principal); D64.9 Anemia, unspecified; E78.00 Pure hypercholesterolemia, unspecified
CPT/HCPCS: 36415; 80051; 82550; 82565; 84450; 84460; 84520; 85025

== ENCOUNTER 2024-01-20 07:24 | Inpatient (IN) | payer MEDICARE, SELFPAY ==
[2024-01-20] VITALS (8 sets, daily range): BP systolic 96–186; BP diastolic 50–94; PULSE 59–64; RESP 11–18; TEMP 36.4–36.6; O2SAT 94–99; BMI 31.1; BMI 31.0
--- NOTE | ~2024-01-20 | CT_ITS ---
EXAMINATION: CT abdomen and pelvis. CT angiogram of the abdomen and pelvis. CLINICAL INFORMATION: Gastrointestinal hemorrhage. Hematochezia, lower abdominal pressure, bleeding per rectum. COMPARISON: CT scan of abdomen and pelvis on 12/15/2022 TECHNIQUE: A multidetector helical CT acquisition of the abdomen and pelvis was obtained following the administration of 80 mL of Omnipaque 350. Multiplanar reformats were acquired and utilized for image interpretation. Multiple axial images were obtained from domes of diaphragm to acetabular roof before and after IV contrast administration. Multiphasic postcontrast imaging was performed at arterial phase and 2 minutes delay phase. Coronal and sagittal images were reconstructed from axial image data. Contrast enhanced CT angiogram of the abdomen was performed. 3-dimensional volumetric maximum intensity projection images in multiple planes were reconstructed on an independent workstation.. Reformatted maximum intensity projection angiographic images of the abdomen pelvis were reconstructed on an independent workstation.. Dose reduction technique: One or more of the following individual dose optimization techniques were used including: Automated exposure control, mA and/or kV were adjusted according to patient size or iterative reconstruction. DLP: 1997 mGy-cm FINDINGS: LUNG BASES: Oblique sagittal reoriented platelike atelectasis is seen in the right middle lobe. Pacemaker wire is seen ending in right ventricle. LIVER: No focal lesion is seen in the liver. GALLBLADDER AND BILIARY TREE: Gallbladder contains small gravitating gallstones. Common bile duct is not dilated. SPLEEN: The spleen is normal in size without focal lesion. PANCREAS: The pancreas appears unremarkable. ADRENAL GLANDS: Adrenal glands are normal in size without focal lesion bilaterally. KIDNEYS: Bilateral kidneys are normal in size with right lateral mid renal cortical simple cyst measuring 4.2 cm in diameter and left lateral mid renal cortical simple cyst measuring 1.9 cm in diameter, for which no follow up imaging is recommended. There is normal excretion of contrast into bilateral renal caliectasis, pelvises and ureters. BOWELS: There is no abnormal dilatation of large and small bowel loops. Multiple diverticula are seen in the transverse and descending colon without inflammatory changes. Visualization of pelvis is markedly limited by severe metallic artifacts. Irregular relatively high attenuation areas are seen in anterior rectum which appears to increase at 2 minute delay postcontrast images. RETROPERITONEUM: No abnormally enlarged retroperitoneal lymph nodes, mass or hematoma could be seen. BLOOD VESSELS: Abdominal aorta is normal in size with extensive circumferential atherosclerotic calcifications and smoothly patent. No dissection flap or contrast leakage or judi- aortic hematoma is seen. At bifurcation, bilateral common iliac arteries are normal in size and smoothly patent. ABDOMINAL WALL: Small umbilical hernia containing mesenteric fat is seen. PERITONEUM: There was no ascites. There were no abdominal peritoneal inflammatory changes seen. No free peritoneal air was seen. No abnormally enlarged mesenteric lymph nodes are found. BONES: There are moderate L1-L2 levoscoliosis and multilevel advanced degenerative lumbar disc disease, sparing L4-L5. No fracture or dislocation. No focal bone lesion diagnostic of metastatic disease could be seen in the lumbar region. EXAMINATION: CT pelvis. CT angiogram of the pelvis. FINDINGS: BLOOD VESSELS: There are normal bifurcation of abdominal aorta into bilateral common iliac arteries which are smoothly patent and normal in size. There is normal bifurcation of bilateral common iliac arteries into smoothly patent bilateral internal and external iliac arteries. There is normal continuation of smoothly patent bilateral external iliac arteries into bilateral common femoral arteries with normal bifurcation into smoothly patent superficial and profunda femoris arteries in the inguinal regions. URINARY BLADDER: Urinary bladder fills normally with urine. BOWELS: There is no abnormal dilatation of large and small bowel loops. Normal appendix is seen projecting posterior to the cecum. Multiple diverticula are seen in the descending and sigmoid colon without inflammatory changes. GENITAL ORGANS: No adnexal mass lesion could be seen. The uterus is enlarged and contains multiple calcified mass lesions. LYMPH NODES: No abnormally enlarged iliac or inguinal lymph nodes are seen. PERITONEUM: No inflammatory changes, ascites or free peritoneal air are found in the pelvis. BONES: Persistent right total hip arthroplasty and interval performance of left total hip arthroplasty are seen, causing metallic artifacts. No fracture or dislocation. No focal bone lesion diagnostic of metastatic disease could be seen in the pelvis. CT/CT gi bleed abd pel wo/w IVcon IMPRESSION: 1. Irregular relatively high attenuation areas are seen in anterior rectum which appears to increase at 2 minute delay postcontrast images. Findings are suspicious for active rectal hemorrhage. Certainty of diagnosis is markedly compromised by extensive metallic artifacts. 2. Interval development of Cholelithiasis. 3. Persistent extensive Diverticulosis of the transverse and descending and sigmoid colon without inflammatory changes. 4. Unchanged bilateral renal cortical simple cysts, for which no follow up imaging is recommended. 5. Unchanged Enlarged uterus with multiple calcified uterine fibroids. 6. Persistent right total hip arthroplasty and interval performance of left total hip arthroplasty.
--- NOTE | 2024-01-20 07:37 | ED_ITS ---
HPI - General Adult General Chief complaint: General Medical Stated complaint: WEAK,VAGINAL BLEEDING SINCE 4AM PER EMS Time Seen by Provider: 01/20/24 07:37 Source: patient and EMS Mode of arrival: EMS Limitations: no limitations History of Present Illness ED Provider: Augustine QUIROS HPI narrative: 78 year old female hx of HFPEF, cardiac pacemaker in situ, afib recently started on elqiuis was on xerelto, presenting w/ lightheadedness and rectal bleeding since 399 today. Reports she felt like she was going to have diarrhea but when she went to the bathroom she noted it was bright red blood. It did not hurt. Reports this has never happened to her before. Reports she has has a few episodes of large volume of blood from rectum since 399 last was when the ambulance arrived at her home. She endorses weakness and fatigue, but states yesterday she felt fine. Denies CP, sob, nausea, vomiting, abd pain, headache, vision changes, fevers, chills, abd trauma. Related Data Home Medications ?Medication ?Instructions ?Recorded ?Confirmed montelukast 10 mg tablet 10 mg PO BEDTIME 05/16/20 10/29/23 fexofenadine 180 mg tablet 180 mg PO DAILY 06/21/21 10/29/23 (Shea Allergy) coenzyme Q10 100 mg tablet 100 mg PO DAILY 07/28/21 10/29/23 magnesium 250 mg tablet 250 mg PO BEDTIME 07/28/21 10/29/23 multivitamin 1 tab PO DAILY 07/28/21 10/29/23 vitamin E (dl, acetate) 180 mg 180 mg PO DAILY 07/28/22 10/29/23 (400 unit) capsule ascorbic acid (vitamin C) 500 mg 1,000 mg PO DAILY 09/26/22 10/29/23 tablet furosemide 40 mg tablet 40 mg PO DAILY 09/26/22 10/29/23 omeprazole 40 mg capsule,delayed 40 mg PO BEDTIME 09/26/22 10/29/23 release turmeric 400 mg capsule 400 mg PO DAILY@1200 11/03/22 10/29/23 gabapentin 300 mg capsule 600 mg PO BEDTIME 04/06/23 10/29/23 meloxicam 15 mg tablet 15 mg PO DAILY 04/06/23 10/29/23 cholecalciferol (vitamin D3) 25 25 mcg PO DAILY 09/03/23 10/29/23 mcg (1,000 unit) capsule (Vitamin D3) promethazine 25 mg rectal 25 mg CO Q6H PRN nausea/vomiting 09/03/23 10/29/23 suppository (Promethegan) Previous Rx's ?Medication ?Instructions ?Recorded ipratropium 0.5 mg-albuterol 3 mg 3 ml inhalation Q4-6H PRN for 12/02/22 (2.5 mg base)/3 mL nebulization wheezing #180 mL soln atorvastatin 40 mg tablet 40 mg PO DAILY #90 tabs 04/27/23 empagliflozin 10 mg tablet 10 mg PO DAILY 90 days #90 tabs 08/24/23 (Jardiance) carvedilol 25 mg tablet 25 mg PO BIDWM #60 tabs 09/30/23 apixaban 5 mg tablet (Eliquis) 5 mg PO BID #60 tabs 12/16/23 Allergies Allergy/AdvReac Type Severity Reaction Status Date / Time aspirin [ASPIRIN] Allergy Unknown RASH Verified 01/20/24 07:36 Sulfa (Sulfonamide Allergy Unknown RASH Verified 01/20/24 07:36 Antibiotics) [SULFA (SULFONAMIDE ANTIBIOTICS)] flecainide AdvReac Intermediate Dizziness Verified 01/20/24 07:36 amiodarone AdvReac Mild Dizziness Verified 01/20/24 07:36 Digitalis Glycosides AdvReac Confusion Verified 01/20/24 07:36 adhesives AdvReac Unknown Uncoded 01/20/24 07:36 Review of Systems 2 Review of Systems: Yes all other systems are reviewed and are negative PMFSH Past Medical History Attestation statement: The following information was validated with the patient. Source: old records reviewed and nursing notes reviewed Medical History (HFpEF) heart failure with preserved ejection fraction Cardiac pacemaker in situ Permanent atrial fibrillation Paroxysmal atrial fibrillation Preoperative cardiovascular examination NSTEMI (non-ST elevated myocardial infarction) Pulmonary hypertension Chronic heart failure with preserved ejection fraction (HFpEF) Chronic heart failure with preserved ejection fraction (HFpEF) Cardiomyopathy Pulmonary hypertension Diastolic dysfunction History of cardiomyopathy HTN (hypertension) History of cardioversion Surgical History S/P cardiac catheterization Hx of total hip arthroplasty Hx of cardiac cath Hx of hand surgery History of back surgery Family History Family History Father Cancer Mother Stroke Brother Atrial fibrillation Sister Cardiovascular disease Atrial fibrillation Social History Social History Household Members: None Housing: House Do you presently have visiting nurse or other home services: No Unable to assess alcohol history related to: Unknown Alcohol intake: former Comment: pt refusing bed alarm Patient Tobacco Use Status: Never used Tobacco Second Hand Smoke Exposure: No Advance Directives: Yes Advance Directives on File: Yes Advance Directives Date on File: 12/18/22 service: No Current occupational status: retired Physical Exam ED Vital Signs: Vital Signs - 24 hr 01/20/24 07:34 01/20/24 08:04 01/20/24 09:10 Temperature 97.6 F 97.5 F 97.6 F Pulse Rate 61 60 60 Respiratory Rate 16 11 L 17 Blood Pressure 96/50 L 105/57 L 117/57 L Pulse Oximetry 94 95 94 Oxygen Delivery Method Room Air Room Air Room Air 01/20/24 11:25 01/20/24 12:18 Temperature 97.8 F 97.9 F Pulse Rate 59 59 Respiratory Rate 12 15 Blood Pressure 139/77 115/61 Pulse Oximetry 95 95 Oxygen Delivery Method Room Air Room Air BMI result Body Mass Index 31.1 vss Appearance: Alert.? Oriented X3.? No acute distress.? Head: Normocephalic, atraumatic, no step-offs or deformities Eyes: Pupils equal, round and reactive to light.? Neck: Normal inspection.? Neck supple.? CVS: Normal heart rate and rhythm.? Pulses normal.? Respiratory: No respiratory distress.? Breath sounds normal.? Abdomen: Soft and nontender.? Skin: Skin warm and clamy.? Pale skin color w/ diaphoresis.? Normal skin turgor.? Extremities: No lower extremity edema.? No calf ttp. 5/5 strength to bilateral upper and lower extremities Neuro: Oriented X 3.? No motor deficit.? No sensory deficit. CN 2-12 intact Course Reevaluation(s) Reevaluation #1: CT of abdomen pelvis shows CT/CT gi bleed abd pel wo/w IVcon IMPRESSION: 1. Irregular relatively high attenuation areas are seen in anterior rectum which appears to increase at 2 minute delay postcontrast images. Findings are suspicious for active rectal hemorrhage. Certainty of diagnosis is markedly compromised by extensive metallic artifacts. Will consult with GI at this time to discuss next steps going forward/admission. I discussed this as well as the CT results with patient and family at bedside and they understood. Time: 12:13 Reevaluation #2: CBC with a cane slight drop in hemoglobin and hematocrit however not significant. No further episodes of rectal bleeding while in the department. Chemistry with slightly elevated BUN and creatinine she is receiving some IV hydration and her pressure has responded well to hydration. Total bilirubin 1.1 no abdominal pain on palpation. BNP 266 again gentle hydration encouraged. Coags unremarkable. UA with trace blood and trace bacteria I do not suspect UTI no UTI symptoms. This case was discussed with GI who recommends NPO after midnight possible scope. Hospital admission. Time: 13:03 Medications Administered Discontinued Medications Generic Name Dose Route Start Last Admin Trade Name Freq PRN Reason Stop Dose Admin Sodium Chloride 500 mls @ 500 mls/hr 01/20/24 07:45 01/20/24 09:11 Ns IV 01/20/24 08:44 Infused .Q1H ROSENDA Infusion Iohexol 80 ml 01/20/24 09:09 01/20/24 09:11 Iohexol 350 Mg/Ml 100 Ml Infus..Btl IV 01/20/24 09:10 80 ml ONCE ONE Administration Medical Decision Making Medical Decision Making [facility] Narrative: 0740 78 yo f presents w/ lower gi bleeding since this am on eliquis PE - pale, clammy skin. Hypotension noted. Hx and pe concerning for acute blood loss anemia secondary to lower GIB. Patient is anticoagulated. I will rule out intra abdominal etiologies for bleeding and will rule out electrolye abnormalities. Hypotension likely secondary to acute blood loss unlikely from infection. Will hydrate with 500 cc of normal saline as patient does have a history of heart failure. Differential Diagnosis Differential Diagnoses: The differential diagnosis associated with the presentation includes Hx and pe concerning for acute blood loss anemia secondary to lower GIB. Patient is anticoagulated. I will rule out intra abdominal etiologies for bleeding and will rule out electrolye abnormalities. Admission/Observation Consideration of admission/observation: Escalation of care including admission/observation considered Possible Lab Data MDM Lab Attestation statement: I reviewed the patient's lab results. 01/20/24 12:06 01/20/24 07:56 Labs: Lab Results 01/20/24 01/20/24 01/20/24 Range/Units 07:56 08:01 11:41 WBC 11.3 H (4.8-10.8) X10*3/uL RBC 3.64 L (4.20-5.50) X10*6/uL Hgb 12.2 (12.0-16.0) g/dl Hct 35.2 L (37.0-47.0) % MCV 96.7 (80.0-98.0) fL MCH 33.5 H (27.0-33.0) pg MCHC 34.7 (31.0-35.0) g/dl RDW 12.2 (11.0-16.0) % Plt Count 207 (160-400) X10*3/uL MPV 9.2 L (9.4-12.3) fL Immature Gran % (Auto) 0.4 (0.0-0.4) % Neut % (Auto) 77.6 H (45-73) % Lymph % (Auto) 13.4 L (20-40) % [place] % (Auto) 6.2 (2-11) % Eos % (Auto) 1.9 (0-4) % Baso % (Auto) 0.5 (0-2) % Lymph # (Auto) 1.5 (1.2-4.9) X10*3/uL [place] # (Auto) 0.7 (0.1-1.2) X10*3/uL Eos # (Auto) 0.2 (0.0-0.4) X10*3/uL Baso # (Auto) 0.1 (0.0-0.2) X10*3/uL Abs Immat Gran (auto) 0.04 H (0.00-0.03) X10*3/uL Absolute Neuts (auto) 8.8 H (2.0-8.3) x10*3/uL Absolute Nucleated RBC 0.000 (0.0-0.012) X10*3/uL Nucleated RBC % (auto) 0.0 (0.0-0.2) /100WBC PT 15.7 H (11.1-13.3) SEC INR 1.3 H (0.9-1.1) Sodium 141 (135-145) mmol/L Potassium 4.7 (3.3-5.1) mmol/L Chloride 111 H (96-108) mmol/L Carbon Dioxide 22 (22-29) mmol/L Anion Gap 13 (12-20) BUN 34 H (9-16) mg/dL Creatinine 1.04 (0.5-1.4) mg/dL Estim Creat Clear Calc 47.2 Estimated GFR 51 Random Glucose 223 H (60-115) mg/dL Calcium 8.6 (8.4-10.2) mg/dL Magnesium 2.2 (1.6-2.6) mg/dL Total Bilirubin 1.1 H (0.0-1.0) mg/dL AST 18 (5-31) U/L ALT 17 (0-31) U/L Alkaline Phosphatase 70 (39-117) U/L B-Natriuretic Peptide 266 H (<100) pg/mL Total Protein 5.7 L (6.5-8.0) g/dL Albumin 3.6 (3.5-5.0) g/dL Urine Color Yellow Urine Appearance Clear Urine pH 5.5 (5.0-9.0) Ur Specific [place] >= 1.030 H (1.005-1.025) Urine Protein Trace (Neg-Trace) mg/dL Urine Glucose (UA) >=1000 H (Negative) mg/dL Urine Ketones Negative (Negative) mg/dL Urine Blood Large (3+) H (Negative) Urine Nitrite Negative (Negative) Ur Leukocyte Esterase Negative (Negative) Urine RBC 0-2 (0-2) /HPF Urine WBC 0-5 (0-5) /HPF Ur Squamous Epith Cells 3-5 (0-2) /HPF Urine Bacteria Trace (None Seen) Hyaline Casts 0-2 (0-2) /LPF Stool Occult Blood POSITIVE (NEGATIVE) Blood Type O Positive Antibody Screen NEGATIVE 01/20/24 Range/Units 12:06 WBC 10.0 (4.8-10.8) X10*3/uL RBC 3.62 L (4.20-5.50) X10*6/uL Hgb 11.9 L (12.0-16.0) g/dl Hct 35.0 L (37.0-47.0) % MCV 96.7 (80.0-98.0) fL MCH 32.9 (27.0-33.0) pg MCHC 34.0 (31.0-35.0) g/dl RDW 12.4 (11.0-16.0) % Plt Count 180 (160-400) X10*3/uL MPV 9.0 L (9.4-12.3) fL Immature Gran % (Auto) 0.4 (0.0-0.4) % Neut % (Auto) 77.5 H (45-73) % Lymph % (Auto) 16.3 L (20-40) % [place] % (Auto) 5.0 (2-11) % Eos % (Auto) 0.5 (0-4) % Baso % (Auto) 0.3 (0-2) % Lymph # (Auto) 1.6 (1.2-4.9) X10*3/uL [place] # (Auto) 0.5 (0.1-1.2) X10*3/uL Eos # (Auto) 0.1 (0.0-0.4) X10*3/uL Baso # (Auto) 0.0 (0.0-0.2) X10*3/uL Abs Immat Gran (auto) 0.04 H (0.00-0.03) X10*3/uL Absolute Neuts (auto) 7.8 (2.0-8.3) x10*3/uL Absolute Nucleated RBC 0.000 (0.0-0.012) X10*3/uL Nucleated RBC % (auto) 0.0 (0.0-0.2) /100WBC PT (11.1-13.3) SEC INR (0.9-1.1) Sodium (135-145) mmol/L Potassium (3.3-5.1) mmol/L Chloride (96-108) mmol/L Carbon Dioxide (22-29) mmol/L Anion Gap (12-20) BUN (9-16) mg/dL Creatinine (0.5-1.4) mg/dL Estim Creat Clear Calc Estimated GFR Random Glucose (60-115) mg/dL Calcium (8.4-10.2) mg/dL Magnesium (1.6-2.6) mg/dL Total Bilirubin (0.0-1.0) mg/dL AST (5-31) U/L ALT (0-31) U/L Alkaline Phosphatase (39-117) U/L B-Natriuretic Peptide (<100) pg/mL Total Protein (6.5-8.0) g/dL Albumin (3.5-5.0) g/dL Urine Color Urine Appearance Urine pH (5.0-9.0) Ur Specific [place] (1.005-1.025) Urine Protein (Neg-Trace) mg/dL Urine Glucose (UA) (Negative) mg/dL Urine Ketones (Negative) mg/dL Urine Blood (Negative) Urine Nitrite (Negative) Ur Leukocyte Esterase (Negative) Urine RBC (0-2) /HPF Urine WBC (0-5) /HPF Ur Squamous Epith Cells (0-2) /HPF Urine Bacteria (None Seen) Hyaline Casts (0-2) /LPF Stool Occult Blood (NEGATIVE) Blood Type Antibody Screen Independent Interpretation I performed an independent interpretation of an: CT Scan Radiology Impression Discussion of test interpretation with radiology: I have reviewed the radiologist's reading. External Record Review External record reviewed: Inpatient record, Office record, Outpatient record, Prior outpatient labs, Prior outpatient radiology, Primary care record and Outside ED record Chronic Conditions Patient?s care impacted by: Other (HF, afib, htn, anemia ) Critical Care Time Critical Care Time Critical Care Time: Yes Total Critical Care Time: 35 Attestation: I attest to this time spent taking care of the patient, obtaining history, physical, reviewing labs, imaging, speaking to my attending, specialist or hospitalist. Discharge Plan Discharge Clinical Impression: Rectal hemorrhage Patient Disposition: Home, Self-Care Prescriptions: No Action ipratropium-albuterol 0.5 mg-3 mg(2.5 mg base)/3 mL solution for nebulization 3 ml inhalation Q4-6H PRN (Reason: for wheezing) Qty: 180 0RF atorvastatin 40 mg tablet 40 mg PO DAILY Qty: 90 3RF Jardiance 10 mg tablet 10 mg PO DAILY 90 Days Qty: 90 3RF carvedilol 25 mg tablet 25 mg PO BIDWM Qty: 60 5RF Protocol: Hold for SBP/HR < HOLD for SBP < : 90 HOLD for HR < : 60 Eliquis 5 mg tablet 5 mg PO BID Qty: 60 5RF coenzyme Q10 100 mg Tablet 100 mg PO DAILY multivitamin Tablet 1 tab PO DAILY magnesium 250 mg Tablet 250 mg PO BEDTIME vitamin E (dl, acetate) 180 mg (400 unit) Capsule 180 mg PO DAILY ascorbic acid (vitamin C) 500 mg Tablet 1,000 mg PO DAILY omeprazole 40 mg Capsule,Delayed Release(Dr/Ec) 40 mg PO BEDTIME furosemide 40 mg Tablet 40 mg PO DAILY promethazine [Promethegan] 25 mg suppository 25 mg CO Q6H PRN (Reason: nausea/vomiting) cholecalciferol (vitamin D3) [Vitamin D3] 25 mcg (1,000 unit) Capsule 25 mcg PO DAILY montelukast 10 mg tablet 10 mg PO BEDTIME gabapentin 300 mg capsule 600 mg PO BEDTIME fexofenadine [Shea Allergy] 180 mg tablet 180 mg PO DAILY turmeric 400 mg capsule 400 mg PO DAILY@1200 meloxicam 15 mg tablet 15 mg PO DAILY Print Language: Togolese
[2024-01-20] MEDS: 0.9 % Sodium Chloride 500 ML IV (07:56)
[2024-01-20 08:07] LABS: MANUAL DIFF FLAG NO
[2024-01-20 08:10] LABS: Basophils Absolute Auto 0.1 X10*3/uL (0.0-0.2); Basophils Percent Auto 0.5 % (0-2); Eosinophils Absolute Auto 0.2 X10*3/uL (0.0-0.4); Eosinophils Percent Auto 1.9 % (0-4); Hematocrit 35.2 % (37.0-47.0); Hemoglobin 12.2 g/dl (12.0-16.0); Imm Gran Abs Auto 0.04 X10*3/uL (0.00-0.03); Imm Gran Pct Auto 0.4 % (0.0-0.4); Lymphocytes Absolute Auto 1.5 X10*3/uL (1.2-4.9); Lymphocytes Percent Auto 13.4 % (20-40); Mean Corpuscular HGB Conc 34.7 g/dl (31.0-35.0); Mean Corpuscular Hemoglobin 33.5 pg (27.0-33.0); Mean Corpuscular Volume 96.7 fL (80.0-98.0); Mean Platelet Volume 9.2 fL (9.4-12.3); Monocytes Absolute Auto 0.7 X10*3/uL (0.1-1.2); Monocytes Percent Auto 6.2 % (2-11); Neutrophils Absolute Auto 8.8 x10*3/uL (2.0-8.3); Neutrophils Percent Auto 77.6 % (45-73); Platelet Count 207 X10*3/uL (160-400); Red Blood Count 3.64 X10*6/uL (4.20-5.50); Red Cell Distribution Width 12.2 % (11.0-16.0); White Blood Count 11.3 X10*3/uL (4.8-10.8)
[2024-01-20 08:14] LABS: INTERNATIONAL NORM RATIO 1.3 (0.9-1.1); Prothrombin Time 15.7 SEC (11.1-13.3)
[2024-01-20 08:25] LABS: OBS Int Ctl Valid YES; OBS1 POSITIVE (NEGATIVE)
[2024-01-20 08:28] LABS: Alanine Aminotransferase 17 U/L (0-31); Albumin Level 3.6 g/dL (3.5-5.0); Alkaline Phosphatase 70 U/L (39-117); Anion Gap 13 (12-20); Aspartate Amino Transferase 18 U/L (5-31); Bilirubin Total 1.1 mg/dL (0.0-1.0); Blood Urea Nitrogen 34 mg/dL (9-16); Calcium 8.6 mg/dL (8.4-10.2); Carbon Dioxide 22 mmol/L (22-29); Chloride 111 mmol/L (96-108); Creatinine Clr Calc Pharmacy 47.2; Estimated Glomerular Filt Rate 51; Glucose Random 223 mg/dL (60-115); Magnesium 2.2 mg/dL (1.6-2.6); Potassium 4.7 mmol/L (3.3-5.1); Sodium 141 mmol/L (135-145); Total Protein 5.7 g/dL (6.5-8.0)
[2024-01-20 08:43] LABS: B Type Natriuretic Peptide 266 pg/mL (<100)
[2024-01-20] MEDS: iohexoL 350 MG/ML 100 ML INFUS..BTL 80 ML IV (09:11)
[2024-01-20 11:49] LABS: Appearance Urine Clear; Color Urine Yellow; Glucose Urine UA >=1000 mg/dL (Negative); Leukocyte Esterase Urine Negative (Negative); Nitrite Urine Negative (Negative); PH 5.5 (5.0-9.0); Specific Gravity - Urine >= 1.030 (1.005-1.025); UMIC TRIGGER UACC YES; Urine Blood Large (3+) (Negative); Urine Ketones Negative (Negative); Urine Protein Trace mg/dL (Neg-Trace)
[2024-01-20 11:59] LABS: Bacteria Urine Trace (None Seen); Hyaline Casts Urine 0-2 /LPF (0-2); RBC Urine 0-2 /HPF (0-2); WBC Urine 0-5 /HPF (0-5)
[2024-01-20 12:11] LABS: MANUAL DIFF FLAG NO
[2024-01-20 12:12] LABS: Basophils Percent Auto 0.3 % (0-2); Eosinophils Absolute Auto 0.1 X10*3/uL (0.0-0.4); Eosinophils Percent Auto 0.5 % (0-4); Hemoglobin 11.9 g/dl (12.0-16.0); Imm Gran Abs Auto 0.04 X10*3/uL (0.00-0.03); Imm Gran Pct Auto 0.4 % (0.0-0.4); Lymphocytes Absolute Auto 1.6 X10*3/uL (1.2-4.9); Lymphocytes Percent Auto 16.3 % (20-40); Mean Corpuscular Hemoglobin 32.9 pg (27.0-33.0); Mean Corpuscular Volume 96.7 fL (80.0-98.0); Monocytes Absolute Auto 0.5 X10*3/uL (0.1-1.2); Neutrophils Absolute Auto 7.8 x10*3/uL (2.0-8.3); Neutrophils Percent Auto 77.5 % (45-73); Platelet Count 180 X10*3/uL (160-400); Red Blood Count 3.62 X10*6/uL (4.20-5.50); Red Cell Distribution Width 12.4 % (11.0-16.0)
--- NOTE | 2024-01-20 13:43 | PM.IMHP ---
History of Present Illness Date of Service: 01/20/24 Attending physician on admission: David Birch Chief Complaint: brbpr 78-year-old female with history paroxysmal atrial fibrillation anticoagulated with eliquis history of cardioversion x9 and x3 cardio ablation, heart failure preserved ejection fraction, pulmonary hypertension, coronary artery disease, cardiomyopathy, hypertension presented to the ED from home for evaluation of bright red blood per rectum. She reports she awoke around 04:00 with urgency to move her bowels. She had thought she would had diarrhea and returned to bed. However several hours later awoke again with the same urgency and realized it was actually blood coming out of the rectum independent of any stool. Denies any associated abdominal pain, nausea, vomiting. Last normal bowel movement was yesterday. She is currently taking Eliquis x1 month after being changed from Xarelto for her atrial fibrillation. On arrival, blood pressure is soft at 96/50 115/61, but vitals otherwise within normal limits. Initial H/H 12.2/35.2 and on repeat 11.9/35.0% (baseline 14.8/43.4% 01/07/24). Renal function baseline, BUN 34, electrolyte levels normal. Glucose 223. Total bilirubin 1.1. BNP 266. Urinalysis with 3+ blood with significant glucose and elevated specific gravity, otherwise unremarkable. CT abdomen pelvis shows irregular relatively high attenuation areas seen in the anterior rectum which appears to increase at 2 minute delay postcontrast changes consistent with active rectal hemorrhage but diagnosis markedly compromised due to extensive metallic artifacts. There are also chronic changes noticed. EKG shows atrial flutter with 3-1 block, controlled rate at [address]/T-wave abnormalities. In the ED received 1 L IV fluid bolus and has been started on maintenance fluids. ED provider did discuss case with Gastroenterology recommending admission for evaluation of lower GI bleed. Review of Systems Review of Systems: General: No fevers, malaise, unintentional weight loss HEENT: No blurred vision, diplopia. No sore throat, nasal congestion, rhinorrhea, sinus pain, ear pain Cardiovascular: No chest pain, palpitations, or leg edema Respiratory: No shortness of breath, wheezing, cough GI: +BRBPR. No abdominal pain, nausea, vomiting, diarrhea, constipation, melena : No dysuria, hematuria, increased urinary frequency, decreased urinary output MSK: No myalgia, back pain Neuro: No headaches, weakness, paresthesias Skin: No rashes or lesions PENDING SALE TO [facility] Medical History (HFpEF) heart failure with preserved ejection fraction Cardiac pacemaker in situ Permanent atrial fibrillation Paroxysmal atrial fibrillation Preoperative cardiovascular examination NSTEMI (non-ST elevated myocardial infarction) Pulmonary hypertension Chronic heart failure with preserved ejection fraction (HFpEF) Chronic heart failure with preserved ejection fraction (HFpEF) Cardiomyopathy Pulmonary hypertension Diastolic dysfunction History of cardiomyopathy HTN (hypertension) History of cardioversion Family History Father Cancer Mother Stroke Brother Atrial fibrillation Sister Cardiovascular disease Atrial fibrillation Surgical History S/P cardiac catheterization Hx of total hip arthroplasty Hx of cardiac cath Hx of hand surgery History of back surgery Social History Household Members: None Housing: House Do you presently have visiting nurse or other home services: No Unable to assess alcohol history related to: Unknown Alcohol intake: former Comment: pt refusing bed alarm Patient Tobacco Use Status: Never used Tobacco Second Hand Smoke Exposure: No Use of substances other than those prescribed or required for medical reasons: No Have you been hit, kicked, punched, or otherwise hurt by someone within the past year? If so, by whom?: No Do you feel safe in your current relationship?: No Current Relationship Is there a partner from a previous relationship who is making you feel unsafe now?: No Are you made to feel afraid or neglected: No Advance Directives: Yes Advance Directives on File: Yes Advance Directives Date on File: 12/18/22 Do you have a plan to hurt others: No Plan Recently lost weight without trying: No Eating poorly because of decreased appetite: No Nutrition Risks: No Nutritional Risk Patient : No : No Poor oral hygiene: No service: No Current occupational status: retired Meds Allergies Allergy/AdvReac Type Severity Reaction Status Date / Time aspirin [ASPIRIN] Allergy Unknown RASH Verified 01/20/24 07:36 Sulfa (Sulfonamide Allergy Unknown RASH Verified 01/20/24 07:36 Antibiotics) [SULFA (SULFONAMIDE ANTIBIOTICS)] flecainide AdvReac Intermediate Dizziness Verified 01/20/24 07:36 amiodarone AdvReac Mild Dizziness Verified 01/20/24 07:36 Digitalis Glycosides AdvReac Confusion Verified 01/20/24 07:36 adhesives AdvReac Unknown Uncoded 01/20/24 07:36 Home Medications ?Medication ?Instructions ?Recorded ?Confirmed ?Last Taken ?Type montelukast 10 mg tablet 10 mg PO BEDTIME 05/16/20 01/20/24 09/02/23 History fexofenadine 180 mg tablet 180 mg PO DAILY 06/21/21 01/20/24 09/02/23 History (Shea Allergy) coenzyme Q10 100 mg tablet 100 mg PO DAILY 07/28/21 01/20/24 09/02/23 History magnesium 250 mg tablet 250 mg PO BEDTIME 07/28/21 01/20/24 09/02/23 History multivitamin 1 tab PO DAILY 07/28/21 01/20/24 09/02/23 History vitamin E (dl, acetate) 180 mg 180 mg PO DAILY 07/28/22 01/20/24 09/02/23 History (400 unit) capsule ascorbic acid (vitamin C) 500 mg 1,000 mg PO DAILY 09/26/22 01/20/24 09/02/23 History tablet furosemide 40 mg tablet 40 mg PO DAILY 09/26/22 01/20/24 09/02/23 History omeprazole 40 mg capsule,delayed 40 mg PO BEDTIME 09/26/22 01/20/24 09/02/23 History release turmeric 400 mg capsule 400 mg PO DAILY@1200 11/03/22 01/20/24 09/02/23 History gabapentin 300 mg capsule 600 mg PO BEDTIME 04/06/23 01/20/24 09/02/23 History meloxicam 15 mg tablet 15 mg PO DAILY 04/06/23 01/20/24 09/02/23 History cholecalciferol (vitamin D3) 25 25 mcg PO DAILY 09/03/23 01/20/24 09/02/23 History mcg (1,000 unit) capsule (Vitamin D3) diltiazem HCl 240 mg 240 mg PO DAILY 01/20/24 01/20/24 Unknown History capsule,extended release 24 hr, controlled (DILT-XR) Physical Exam Vital Signs and Narrative: Vital Signs: Last Vital Signs Temp 97.9 F 01/20/24 12:18 Pulse 59 01/20/24 12:18 Resp 15 01/20/24 12:18 BP 115/61 01/20/24 12:18 Pulse Ox 95 01/20/24 12:18 O2 Del Method Room Air 01/20/24 12:18 BMI result Body Mass Index 31.1 Constitutional - Awake and Alert, No apparent distress Eyes - PERRLA, EOMI Cardiovascular - S1S2, RRR, No edema Respiratory - Normal lung expansion, Normal respiratory effort, No respiratory distress, CTA bilaterally Gastrointestinal - NT / ND; +BS; No rebound or guarding Extremities - no calf tenderness bilaterally, no swelling Skin - Warm/Dry Neurological - Alert & oriented x3 Psychological - Appropriate affect Results Labs 01/20/24 17:53 01/20/24 07:56 Labs: Laboratory Results - last 24 hr 01/20/24 01/20/24 01/20/24 07:56 08:01 11:41 MCV 96.7 MCH 33.5 H MCHC 34.7 RDW 12.2 Plt Count 207 MPV 9.2 L Immature Gran % (Auto) 0.4 Neut % (Auto) 77.6 H Lymph % (Auto) 13.4 L Wilkin % (Auto) 6.2 Eos % (Auto) 1.9 Baso % (Auto) 0.5 Lymph # (Auto) 1.5 Wilkin # (Auto) 0.7 Eos # (Auto) 0.2 Baso # (Auto) 0.1 Abs Immat Gran (auto) 0.04 H Absolute Neuts (auto) 8.8 H Absolute Nucleated RBC 0.000 Nucleated RBC % (auto) 0.0 PT 15.7 H INR 1.3 H Anion Gap 13 Estim Creat Clear Calc 47.2 Estimated GFR 51 Random Glucose 223 H Calcium 8.6 Magnesium 2.2 Total Bilirubin 1.1 H AST 18 ALT 17 Alkaline Phosphatase 70 B-Natriuretic Peptide 266 H Total Protein 5.7 L Albumin 3.6 Urine Color Yellow Urine Appearance Clear Urine pH 5.5 Ur Specific [place] >= 1.030 H Urine Protein Trace Urine Glucose (UA) >=1000 H Urine Ketones Negative Urine Blood Large (3+) H Urine Nitrite Negative Ur Leukocyte Esterase Negative Urine RBC 0-2 Urine WBC 0-5 Ur Squamous Epith Cells 3-5 Urine Bacteria Trace Hyaline Casts 0-2 Stool Occult Blood POSITIVE Blood Type O Positive Antibody Screen NEGATIVE 01/20/24 12:06 MCV 96.7 MCH 32.9 MCHC 34.0 RDW 12.4 Plt Count 180 MPV 9.0 L Immature Gran % (Auto) 0.4 Neut % (Auto) 77.5 H Lymph % (Auto) 16.3 L Wilkin % (Auto) 5.0 Eos % (Auto) 0.5 Baso % (Auto) 0.3 Lymph # (Auto) 1.6 Wilkin # (Auto) 0.5 Eos # (Auto) 0.1 Baso # (Auto) 0.0 Abs Immat Gran (auto) 0.04 H Absolute Neuts (auto) 7.8 Absolute Nucleated RBC 0.000 Nucleated RBC % (auto) 0.0 PT INR Anion Gap Estim Creat Clear Calc Estimated GFR Random Glucose Calcium Magnesium Total Bilirubin AST ALT Alkaline Phosphatase B-Natriuretic Peptide Total Protein Albumin Urine Color Urine Appearance Urine pH Ur Specific [place] Urine Protein Urine Glucose (UA) Urine Ketones Urine Blood Urine Nitrite Ur Leukocyte Esterase Urine RBC Urine WBC Ur Squamous Epith Cells Urine Bacteria Hyaline Casts Stool Occult Blood Blood Type Antibody Screen Imaging Radiologist's Impressions: Impressions Abdomen/Pelvis CT 01/20/24 09:15 IMPRESSION: 1. Irregular relatively high attenuation areas are seen in anterior rectum which appears to increase at 2 minute delay postcontrast images. Findings are suspicious for active rectal hemorrhage. Certainty of diagnosis is markedly compromised by extensive metallic artifacts. 2. Interval development of Cholelithiasis. 3. Persistent extensive Diverticulosis of the transverse and descending and sigmoid colon without inflammatory changes. 4. Unchanged bilateral renal cortical simple cysts, for which no follow up imaging is recommended. 5. Unchanged Enlarged uterus with multiple calcified uterine fibroids. 6. Persistent right total hip arthroplasty and interval performance of left total hip arthroplasty. Assessment and Plan (1) Rectal hemorrhage: Status: Acute Plan 78-year-old female with history paroxysmal atrial fibrillation anticoagulated with eliquis history of cardioversion x9 and x3 cardio ablation, heart failure preserved ejection fraction, pulmonary hypertension, coronary artery disease, cardiomyopathy, hypertension admitted for further management of acute lower GI bleed. # acute lower GI bleed with acute blood loss anemia -CT abdomen/pelvis shows possible active rectal hemorrhage. However, H/H though decreased from baseline, has remained stable overall -Initial H/H 12.2/35.2 and on repeat 11.9/35.0% (baseline 14.8/43.4% 01/07/24) -Repeat CBC @4pm -Keep NPO for now, continue IVF. Discussed with GI, plan for colonoscopy sunday 01/21. If stable, can advance to clears in the morning. THen NPO after midnight again -Hold eliquis. Hold on reversal for now unless recurrent bleeding per GI -GI consult -Monitor on telemetry # paroxysmal atrial fibrillation-rate controlled -hold Eliquis in setting of above -continue carvedilol and diltiazem for rate control # CAD/cardiomyopathy/heart failure preserved ejection fraction -clinically euvolemic -continue p.o. Lasix for diuresis -continue carvedilol, diltiazem, Jardiance # hypertension -blood pressure reasonably controlled, no ongoing bleeding -continue carvedilol, diltiazem, Lasix DVT prophylaxis- scps full code Patient requires inpatient stay at least 2 midnights for management of acute lower GI bleed with acute blood loss anemia requiring IV fluids, expert consultation and possible colonoscopy with close monitoring of blood counts and hemodynamics to prevent decompensation Quality Stroke Does the patient have a stroke diagnosis?: No VTE Prior VTE?: No VTE Risk Level:: Medical - moderate - high VTE Device Contraindication: N/A - Device Ordered VTE Drug Contraindication: Treatment Not Indicated
--- NOTE | 2024-01-20 14:10 | PHA.MEDREC ---
Pharmacy Consult ? Medication Reconciliation Pharmacy has completed the medication reconciliation.Pt had list of all medications at bedside. Reported taking nothing today.
[2024-01-20] MEDS: 0.9 % Sodium Chloride 1,000 ML 100 ML IVCONT (14:22)
[2024-01-20] MEDS: carvediloL 25 MG TABLET PO (18:13)
[2024-01-20] MEDS: 0.9 % Sodium Chloride Flush 3 ML SYRINGE IVFLUSH ×2 (18:16→21:46)
[2024-01-20 18:30] LABS: Hematocrit 32.1 % (37.0-47.0); Hemoglobin 11.1 g/dl (12.0-16.0); Mean Corpuscular HGB Conc 34.6 g/dl (31.0-35.0); Mean Corpuscular Hemoglobin 32.9 pg (27.0-33.0); Mean Corpuscular Volume 95.3 fL (80.0-98.0); Mean Platelet Volume 9.8 fL (9.4-12.3); Platelet Count 176 X10*3/uL (160-400); Red Blood Count 3.37 X10*6/uL (4.20-5.50); Red Cell Distribution Width 12.4 % (11.0-16.0); White Blood Count 8.1 X10*3/uL (4.8-10.8)
--- NOTE | 2024-01-20 19:05 | PM.EVENT ---
Event Note Date of Service: 01/20/24 Event Note: GI Consult-Seen in ER at 12:30pm today. Full note dictated-History from patient and daughter. Imp: Lower GI bleed most likely due to a diverticular bleed. Presently stable. Her last colonoscopy was limited to the sigmoid colon in [address] colonography later that same day. Rec: Observe, F/U Hgb, give reversal for Eliquis if active bleeding recurs, NPO for now. Will plan for a colonoscopy on Sunday 01/21. D/W patient and her daughter in detail. They are comfortable with this plan. Please call me if problems. Thanks Time Spent With Patient Time: Total time managing care of this patient today ____ minutes.
[2024-01-20] MEDS: Omeprazole 40 MG CAPSULE.DR PO (21:41)
[2024-01-20] MEDS: Gabapentin 300 MG CAPSULE 600 MG PO (21:41)
[2024-01-20] MEDS: Montelukast Sodium 10 MG TABLET PO (21:41)
[2024-01-20] MEDS: Magnesium Oxide 400 MG TABLET 200 MG PO (21:41)
[2024-01-21] VITALS (8 sets, daily range): BP systolic 129–168; BP diastolic 57–88; PULSE 60–65; RESP 16–20; TEMP 35.9–36.8; O2SAT 93–97
[2024-01-21] MEDS: 0.9 % Sodium Chloride 1,000 ML 100 ML IVCONT (04:33)
--- NOTE | 2024-01-21 05:27 | CONS_ITS ---
DATE OF SERVICE: 01/20/2024 REASON FOR CONSULTATION: Lower GI bleeding. HISTORY OF PRESENT ILLNESS: This has been obtained for the patient and her daughter, and the ER staff. The patient is a 78-year-old female who was in her usual state of health up until early this morning when she was awakened by the need to have a bowel movement. When she went to the bathroom, she noticed it was primarily red blood. Prior to today, she had been feeling well from a GI standpoint. Her bowel movements had been regular without any signs of bleeding. She typically enjoys a good appetite without any significant heartburn or dysphagia. She has been on chronic anticoagulation with Eliquis due to underlying cardiac disease including atrial fibrillation. She does not use any chronic aspirin nor NSAIDs. Her bleeding continued at home and she came to the ER for evaluation. She reports that since came to the ER, she has not had any bleeding. She denies any abdominal pain. She denies any nausea nor vomiting. Her initial hemoglobin in the ER at 8 a.m. was 12.2, compared to a hemoglobin of 14.8 on January 06. A followup hemoglobin at noon was 11.9. She did not receive a reversal for the Eliquis that she did not show any signs of further active bleeding in the ER. She denies any previous history of GI bleeding. Her most recent colonoscopy was in 2015, but this was limited to only the sigmoid colon as it was not able to be advanced beyond that. A CT colonography that same day was nonrevealing. This was done by Dr. Zafar at that time. MEDICATIONS: At home included Eliquis, meloxicam, vitamin C, atorvastatin, carvedilol, vitamin D, diltiazem, Jardiance, fexofenadine, furosemide, gabapentin, and magnesium. PAST MEDICAL HISTORY: Atrial fibrillation. Pacemaker. Left femoral neck fracture, status post repair with Dr. Vizcarra. Back surgery. She has had previous cardioversions and cardiac ablation in regard to the underlying atrial fibrillation. She has a history of congestive heart failure with preserved ejection fraction. Pulmonary hypertension. Coronary artery disease. Hypertension. There is no report of stroke, diabetes, nor renal disease. PAST SURGICAL HISTORY: Include repair of left hip fracture, hand surgery and back surgery. SOCIAL HISTORY: She is a and lives by herself. She does not smoke nor use any significant amounts of alcohol. FAMILY HISTORY: Noncontributory. REVIEW OF SYSTEMS: CONSTITUTIONAL: Up until this morning, she had been feeling well with good energy and good appetite. SKIN: No rash. No pruritus. CARDIAC: No chest pain. PULMONARY: No coughing or hemoptysis. GI: As above. URINARY: No dysuria. No hematuria. NEUROLOGIC: No headache or seizures. PHYSICAL EXAMINATION: GENERAL: The patient is a pleasant, alert, comfortable-appearing female, in no distress. SKIN: Warm and dry. Anicteric sclerae. NECK: Supple without lymphadenopathy. CARDIAC: S1, S2. CHEST: Clear. ABDOMEN: Soft, nondistended and nontender without organomegaly or mass. EXTREMITIES: Without edema. LABORATORY DATA: As above. Her most recent CBC showed a white blood cell count 10,000, hemoglobin 11.9, MCV 97, and platelets 180,000. PT 15.7, INR 1.3. Normal electrolytes. BUN 34, creatinine 1.0. LFTs normal. Stool was Hemoccult positive. Her CT scan describes diverticulosis, and question of some suspicion for active rectal bleeding. However, there was a lot of artifact from her joint replacement which made the reading somewhat difficult according to the report. She did have gallstones noted as well. There was no sign of any diverticulitis. IMPRESSION: Given the patient's clinical history, this seems quite consistent with a diverticular bleed. At the present time, she has not had any active bleeding since arrival and therefore, I think it is reasonable to hold off on reversing the Eliquis. However, if she shows any signs of recurrent bleeding, then I would definitely give her the Eliquis reversal agent. In the meantime, I would continue to follow her hemoglobin closely and transfuse her as needed. I will keep her n.p.o. for tonight. Given that the last evaluation of the colon was back in 2016, was limited to only the sigmoid colon. I would recommend repeat colonoscopy with hopefully being able to get past the sigmoid colon. This will be done either by myself or Dr. Zafar. Full consent has been obtained from the patient and her daughter for this, including risks of bleeding and perforation. I will plan to do the procedure on January 21, such that she will be off her Eliquis for 1 day longer and will be somewhat stronger to hopefully be able to go through the prep and the procedure. She will do the prep tomorrow, but can have clear liquids during the day as long as things are stable. If she shows signs of recurrent active bleeding, then I would recommend consideration for repeat CT angiogram and transferred to a tertiary facility for Interventional Radiology attempt at a therapeutic embolization to stop the bleeding from any diverticular source. This has been discussed with the patient and her daughter in detail and they are comfortable with the plan. Thank you for the consultation. MD MERT Marti/PATTI / [id number]
[2024-01-21 07:04] LABS: MANUAL DIFF FLAG NO
[2024-01-21 07:10] LABS: Basophils Percent Auto 0.7 % (0-2); Eosinophils Absolute Auto 0.1 X10*3/uL (0.0-0.4); Eosinophils Percent Auto 1.3 % (0-4); Hematocrit 29.6 % (37.0-47.0); Hemoglobin 10.1 g/dl (12.0-16.0); Imm Gran Abs Auto 0.05 X10*3/uL (0.00-0.03); Imm Gran Pct Auto 0.8 % (0.0-0.4); Lymphocytes Absolute Auto 1.7 X10*3/uL (1.2-4.9); Lymphocytes Percent Auto 27.8 % (20-40); Mean Corpuscular HGB Conc 34.1 g/dl (31.0-35.0); Mean Corpuscular Hemoglobin 33.2 pg (27.0-33.0); Mean Corpuscular Volume 97.4 fL (80.0-98.0); Mean Platelet Volume 9.2 fL (9.4-12.3); Monocytes Absolute Auto 0.6 X10*3/uL (0.1-1.2); Monocytes Percent Auto 9.2 % (2-11); Neutrophils Absolute Auto 3.7 x10*3/uL (2.0-8.3); Neutrophils Percent Auto 60.2 % (45-73); Platelet Count 159 X10*3/uL (160-400); Red Blood Count 3.04 X10*6/uL (4.20-5.50); Red Cell Distribution Width 12.5 % (11.0-16.0); White Blood Count 6.1 X10*3/uL (4.8-10.8)
[2024-01-21 07:25] LABS: Anion Gap 10 (12-20); Blood Urea Nitrogen 22 mg/dL (9-16); Calcium 8.3 mg/dL (8.4-10.2); Carbon Dioxide 21 mmol/L (22-29); Chloride 116 mmol/L (96-108); Creatinine Clr Calc Pharmacy 70.9; Estimated Glomerular Filt Rate > 60; Glucose Random 96 mg/dL (60-115); Potassium 3.9 mmol/L (3.3-5.1); Sodium 143 mmol/L (135-145)
--- NOTE | 2024-01-21 08:17 | MHC.CM.PN ---
CM met with Patient at bedside and addressed IMM with her, providing Patient with the original and a copy has been placed on the chart. 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 Home/self care is the goal and CM has initiated and will follow for dc planning. PCP is Dr. Huff and HCP is Daughter/Lina (Steven is listed as Primary HCP Agent, but he has since ).
[2024-01-21] MEDS: Ascorbic Acid 500 MG TABLET 1000 MG PO (09:30)
[2024-01-21] MEDS: Atorvastatin Calcium 40 MG TABLET PO (09:31)
[2024-01-21] MEDS: dilTIAZem HCL CD 240 MG CAP.ER.DEG PO (09:31)
[2024-01-21] MEDS: Vitamin E (Dl,Tocopheryl Acet) 180 MG (400 UNIT) CAPSULE PO (09:31)
[2024-01-21] MEDS: carvediloL 25 MG TABLET PO ×2 (09:31→17:04)
[2024-01-21] MEDS: Multivitamin TABLET 1 TAB PO (09:31)
[2024-01-21] MEDS: Cholecalciferol (Vitamin D3) 25 MCG TABLET PO (09:31)
[2024-01-21] MEDS: Loratadine 10 MG TABLET PO (09:31)
[2024-01-21] MEDS: Furosemide 40 MG TABLET PO (09:32)
[2024-01-21] MEDS: 0.9 % Sodium Chloride Flush 3 ML SYRINGE IVFLUSH (09:32)
[2024-01-21] MEDS: Lactated Ringers 1,000 ML 100 ML IVCONT (09:50)
--- NOTE | 2024-01-21 11:17 | P.PNIM_ITS ---
Subjective Subjective Date of Service: 01/21/24 Interval History: Seen and examined this morning Follow-up for GI bleeding No bleeding overnight. Denies abdominal pain, nausea, vomiting Plan for colonoscopy tomorrow Review of Systems Review of Systems: Yes all other systems are reviewed and are negative Constitutional Constitutional: Denies chills and Denies fever(s) Cardiovascular Cardiovascular: Denies chest pain Gastrointestinal Gastrointestinal: Denies abdominal pain, Denies nausea and Denies vomiting Physical Exam 2 Vital Signs: Vital Signs: Last Vital Signs Temp 98.3 F 01/21/24 08:00 Pulse 60 01/21/24 09:31 Resp 20 01/21/24 08:00 BP 139/68 01/21/24 09:32 Pulse Ox 97 01/21/24 08:00 O2 Del Method Room Air 01/21/24 08:00 BMI result Body Mass Index 31.0 Const: General: cooperative, comfortable, alert and awake Nutritional Appearance: overweight Orientation/consciousness: patient oriented x3 Resp: Effort & Inspection: normal respiratory effort, able to speak in complete sentences, no respiratory distress and no use of accessory muscles Cardio: Rate: regular rate GI: Inspection: No distended Palpation (GI): Soft to palpation and nontender Neuro: General: patient oriented x3, moves all extremities and CN's II-XI intact bilaterally Extrem: General: Yes no pedal edema Objective Data Active Medications Acetaminophen (Acetaminophen 325 Mg Tablet) 650 mg PO Q6H PRN PRN Reason: Pain, Mild (Pain Scale 1-3) Albuterol/Ipratropium (Albuterol/Iprat 2.5/0.5mg 3 Ml Ampul.Neb) 3 ml INHALE Q4H PRN PRN Reason: for wheezing Ascorbic Acid (Ascorbic Acid 500 Mg Tablet) 1,000 mg PO DAILY [facility] Last Admin: 01/21/24 09:30 Dose: 1,000 mg Documented By: MELIDA Atorvastatin Calcium (Atorvastatin Calcium 40 Mg Tablet) 40 mg PO DAILY [facility] Last Admin: 01/21/24 09:31 Dose: 40 mg Documented By: MELIDA Carvedilol (Carvedilol 25 Mg Tablet) 25 mg PO BIDWM [facility]; Protocol Last Admin: 01/21/24 09:31 Dose: 25 mg Documented By: MELIDA Diltiazem HCl (Diltiazem Hcl Cd 240 Mg Cap.Er.Deg) 240 mg PO DAILY [facility]; Protocol Last Admin: 01/21/24 09:31 Dose: 240 mg Documented By: MELIDA Furosemide (Furosemide 40 Mg Tablet) 40 mg PO DAILY [facility]; Protocol Last Admin: 01/21/24 09:32 Dose: 40 mg Documented By: MELIDA Gabapentin (Gabapentin 300 Mg Capsule) 600 mg PO BEDTIME [facility] Last Admin: 01/20/24 21:41 Dose: 600 mg Documented By: ROSIE Lactated Ringer's (Lr) 1,000 mls @ 100 mls/hr IVCONT .Q10H [facility] Last Admin: 01/21/24 09:50 Dose: 100 mls/hr Documented By: MELIDA Loratadine (Loratadine 10 Mg Tablet) 10 mg PO DAILY [facility] Last Admin: 01/21/24 09:31 Dose: 10 mg Documented By: MELIDA Magnesium Hydroxide (Milk Of Magnesia 30 Ml Oral.Susp) 30 ml PO DAILY PRN PRN Reason: Constipation Magnesium Oxide (Magnesium Oxide 400 Mg Tablet) 200 mg PO BEDTIME [facility] Last Admin: 01/20/24 21:41 Dose: 200 mg Documented By: ROSIE Melatonin (Melatonin 3 Mg Tablet) 6 mg PO BEDTIME PRN PRN Reason: Insomnia Montelukast Sodium (Montelukast Sodium 10 Mg Tablet) 10 mg PO BEDTIME [facility] Last Admin: 01/20/24 21:41 Dose: 10 mg Documented By: ROSIE Multivitamins/Vitamin C (Multivitamin Tablet) 1 tab PO DAILY [facility] Last Admin: 01/21/24 09:31 Dose: 1 tab Documented By: MELIDA Omeprazole (Omeprazole 40 Mg Capsule.Dr) 40 mg PO BEDTIME [facility] Last Admin: 01/20/24 21:41 Dose: 40 mg Documented By: ROSIE Ondansetron HCl (Ondansetron Hcl 4 Mg/2 Ml Vial) 4 mg IVPUSH Q8H PRN PRN Reason: Nausea and Vomiting Sodium Chloride (0.9 % Sodium Chloride Flush 3 Ml Syringe) 3 ml IVFLUSH QSHIFT [facility] Last Admin: 01/21/24 09:32 Dose: 3 ml Documented By: MELIDA Vitamin D (Cholecalciferol (Vitamin D3) 25 Mcg Tablet) 25 mcg PO DAILY [facility] Last Admin: 01/21/24 09:31 Dose: 25 mcg Documented By: MELIDA Vitamin E (Vitamin E (Dl,Tocopheryl Acet) 180 Mg (400 Unit) Capsule) 180 mg PO DAILY [facility] Last Admin: 01/21/24 09:31 Dose: 180 mg Documented By: MELIDA Labs 01/21/24 06:34 01/21/24 06:34 Labs: Laboratory Results - last 24 hr 01/20/24 01/20/24 01/20/24 11:41 12:06 17:53 MCV 96.7 95.3 MCH 32.9 32.9 MCHC 34.0 34.6 RDW 12.4 12.4 Plt Count 180 176 MPV 9.0 L 9.8 Immature Gran % (Auto) 0.4 Neut % (Auto) 77.5 H Lymph % (Auto) 16.3 L [place] % (Auto) 5.0 Eos % (Auto) 0.5 Baso % (Auto) 0.3 Lymph # (Auto) 1.6 [place] # (Auto) 0.5 Eos # (Auto) 0.1 Baso # (Auto) 0.0 Abs Immat Gran (auto) 0.04 H Absolute Neuts (auto) 7.8 Absolute Nucleated RBC 0.000 0.000 Nucleated RBC % (auto) 0.0 0.0 Anion Gap Estim Creat Clear Calc Estimated GFR Random Glucose Calcium Urine Color Yellow Urine Appearance Clear Urine pH 5.5 Ur Specific Jackman >= 1.030 H Urine Protein Trace Urine Glucose (UA) >=1000 H Urine Ketones Negative Urine Blood Large (3+) H Urine Nitrite Negative Ur Leukocyte Esterase Negative Urine RBC 0-2 Urine WBC 0-5 Ur Squamous Epith Cells 3-5 Urine Bacteria Trace Hyaline Casts 0-2 01/21/24 06:34 MCV 97.4 MCH 33.2 H MCHC 34.1 RDW 12.5 Plt Count 159 L MPV 9.2 L Immature Gran % (Auto) 0.8 H Neut % (Auto) 60.2 Lymph % (Auto) 27.8 [place] % (Auto) 9.2 Eos % (Auto) 1.3 Baso % (Auto) 0.7 Lymph # (Auto) 1.7 [place] # (Auto) 0.6 Eos # (Auto) 0.1 Baso # (Auto) 0.0 Abs Immat Gran (auto) 0.05 H Absolute Neuts (auto) 3.7 Absolute Nucleated RBC 0.000 Nucleated RBC % (auto) 0.0 Anion Gap 10 L Estim Creat Clear Calc 70.9 Estimated GFR > 60 Random Glucose 96 Calcium 8.3 L Urine Color Urine Appearance Urine pH Ur Specific [place] Urine Protein Urine Glucose (UA) Urine Ketones Urine Blood Urine Nitrite Ur Leukocyte Esterase Urine RBC Urine WBC Ur Squamous Epith Cells Urine Bacteria Hyaline Casts Assessment and Plan (1) Rectal hemorrhage: Status: Acute Plan This is a 78-year-old female with history paroxysmal atrial fibrillation anticoagulated with eliquis history of cardioversion x9 and x3 cardio ablation, heart failure preserved ejection fraction, pulmonary hypertension, coronary artery disease, cardiomyopathy, hypertension admitted for further management of acute lower GI bleed. # acute lower GI bleed with acute blood loss anemia CT abdomen/pelvis shows possible active rectal hemorrhage H/H drifting down slightly, but no further active bleeding noted clear liquids today plan for colonoscopy sunday 01/21; NPO at midnight Hold eliquis. Hold on reversal for now unless recurrent bleeding per GI GI following # paroxysmal atrial fibrillation-rate controlled -hold Eliquis in setting of above -continue carvedilol and diltiazem for rate control # CAD/cardiomyopathy/heart failure preserved ejection fraction clinically euvolemic hold lasix while receiving IVF -continue carvedilol, diltiazem -Jardiance on hold # hypertension -blood pressure reasonably controlled, no ongoing bleeding -continue carvedilol, diltiazem HLD Continue statin DVT prophylaxis- scps full code Patient requires ongoing inpatient management of acute lower GI bleed with acute blood loss anemia requiring IV fluids, expert consultation and colonoscopy with close monitoring of blood counts and hemodynamics to prevent decompensation Quality Stroke Does the patient have a stroke diagnosis?: No VTE Prior VTE?: No VTE Risk Level:: Medical - moderate - high VTE Device Contraindication: N/A - Device Ordered VTE Drug Contraindication: Treatment Not Indicated
--- NOTE | 2024-01-21 12:51 | MHC.SHP ---
Pre-Procedural Eval Section A - 24 Hr Update-Section A only Date of Service: 01/22/24 The patient is an INPATIENT: Yes The patient has been examined within 24 hours of the surgical procedure. The History & Physical has been completed within 30 days and I have reviewed it.: Yes Section B - Complete if H&P > 30 days Chief Complaint: Acute GI bleed Allergies: Allergies Allergy/AdvReac Type Severity Reaction Status Date / Time aspirin [ASPIRIN] Allergy Unknown RASH Verified 01/20/24 07:36 Sulfa (Sulfonamide Allergy Unknown RASH Verified 01/20/24 07:36 Antibiotics) [SULFA (SULFONAMIDE ANTIBIOTICS)] flecainide AdvReac Intermediate Dizziness Verified 01/20/24 07:36 amiodarone AdvReac Mild Dizziness Verified 01/20/24 07:36 Digitalis Glycosides AdvReac Confusion Verified 01/20/24 07:36 adhesives AdvReac Unknown Uncoded 01/20/24 07:36 Plan I have reviewed the history and physical and performed a pertinent physical examination on my patient. No changes have occurred unless specified. Time Spent With Patient Time: Total time managing care of this patient today ____ minutes.
--- NOTE | 2024-01-21 15:46 | P.PNGI_ITS ---
Subjective Subjective Date of Service: 01/21/24 Interval History: Patient seen at 9:00 AM today. History from patient, EMR, and her RN. She feels OK. Denies any bleeding overnight, abdominal pain, N/V. Critical Care Time (minutes): 0 Physical Exam 2 Vital Signs: Vital Signs: Last Vital Signs Temp 97.4 F 01/21/24 12:00 Pulse 60 01/21/24 12:00 Resp 20 01/21/24 12:00 BP 136/57 L 01/21/24 12:00 Pulse Ox 94 01/21/24 12:00 O2 Del Method Room Air 01/21/24 12:00 BMI result Body Mass Index 31.0 Const: General: cooperative, healthy appearing, comfortable, no acute distress, well developed, alert and awake GI: Other: Abd-soft, NT, no mass Objective Data Labs 01/21/24 06:34 01/21/24 06:34 Labs: Laboratory Results - last 24 hr 01/20/24 01/21/24 17:53 06:34 WBC 8.1 6.1 RBC 3.37 L 3.04 L Hgb 11.1 L 10.1 L Hct 32.1 L 29.6 L MCV 95.3 97.4 MCH 32.9 33.2 H MCHC 34.6 34.1 RDW 12.4 12.5 Plt Count 176 159 L MPV 9.8 9.2 L Immature Gran % (Auto) 0.8 H Neut % (Auto) 60.2 Lymph % (Auto) 27.8 Emanuel % (Auto) 9.2 Eos % (Auto) 1.3 Baso % (Auto) 0.7 Lymph # (Auto) 1.7 Emanuel # (Auto) 0.6 Eos # (Auto) 0.1 Baso # (Auto) 0.0 Abs Immat Gran (auto) 0.05 H Absolute Neuts (auto) 3.7 Absolute Nucleated RBC 0.000 0.000 Nucleated RBC % (auto) 0.0 0.0 Sodium 143 Potassium 3.9 Chloride 116 H Carbon Dioxide 21 L Anion Gap 10 L BUN 22 H Creatinine 0.69 Estim Creat Clear Calc 70.9 Estimated GFR > 60 Random Glucose 96 Calcium 8.3 L Procedures Date of Service Date of Service: 01/21/24 Progress Note: A&P Assessment and plan (1) Lower GI bleed: Status: Acute Assessment and Plan: Imp: She presently appears stable without any further active bleeding. Hgb has drifted down but things seem stable overall. This seems most c/w a diverticular bleed. Rec: Observe today. F/U Hgb. Colonoscopy on 01/[address] Zafar. Full consent obtained for this, including risks of bleeding and perforation. Continue to hold her Eliquis. D/W patient in detail and she is comfortable with this plan. Thanks. Time Spent With Patient Time: Total time managing care of this patient today ____ minutes. Quality Stroke Does the patient have a stroke diagnosis?: No VTE Prior VTE?: No VTE Risk Level:: Medical - moderate - high VTE Device Contraindication: N/A - Device Ordered VTE Drug Contraindication: Treatment Not Indicated
[2024-01-21] MEDS: ondansetron HCL 4 MG/2 ML VIAL IVPUSH (17:04)
[2024-01-21] MEDS: bisacodyL 5 MG TABLET.DR 10 MG PO (17:05)
[2024-01-21] MEDS: PEG 3350/Na Sulf,Bicarb,Cl/KCL 4,000 ML SOLN.RECON 4000 ML PO (18:23)
[2024-01-21] MEDS: Magnesium Oxide 400 MG TABLET 200 MG PO (21:11)
[2024-01-21] MEDS: Montelukast Sodium 10 MG TABLET PO (21:12)
[2024-01-21] MEDS: Gabapentin 300 MG CAPSULE 600 MG PO (21:12)
[2024-01-21] MEDS: Omeprazole 40 MG CAPSULE.DR PO (21:13)
[2024-01-21 22:32] LABS: MANUAL DIFF FLAG NO
[2024-01-21 22:37] LABS: Basophils Percent Auto 0.5 % (0-2); Eosinophils Absolute Auto 0.1 X10*3/uL (0.0-0.4); Eosinophils Percent Auto 1.5 % (0-4); Hematocrit 28.6 % (37.0-47.0); Imm Gran Abs Auto 0.06 X10*3/uL (0.00-0.03); Imm Gran Pct Auto 0.7 % (0.0-0.4); Lymphocytes Absolute Auto 1.9 X10*3/uL (1.2-4.9); Lymphocytes Percent Auto 22.9 % (20-40); Mean Corpuscular Hemoglobin 33.6 pg (27.0-33.0); Mean Platelet Volume 9.1 fL (9.4-12.3); Monocytes Absolute Auto 0.8 X10*3/uL (0.1-1.2); Monocytes Percent Auto 9.2 % (2-11); Neutrophils Absolute Auto 5.5 x10*3/uL (2.0-8.3); Neutrophils Percent Auto 65.2 % (45-73); Platelet Count 183 X10*3/uL (160-400); Red Blood Count 2.98 X10*6/uL (4.20-5.50); Red Cell Distribution Width 12.5 % (11.0-16.0); White Blood Count 8.4 X10*3/uL (4.8-10.8)
[2024-01-21] MEDS: Lactated Ringers 1,000 ML 75 ML IVCONT (22:39)
--- NOTE | 2024-01-21 23:07 | PM.EVENT ---
Event Note Date of Service: 01/21/24 Event Note: 10:01 PM - Contacted to notify patient is having large amounts of dark blood and feeling dizzy and nauseous. She is drinking bowel prep for colonoscopy tomorrow. VS: Hr= 60bpm (V-paced) Bp= 129/68 T= 98.8 O2 = 92-93% Labs stat obtained: Hgb 10.0 (prior 10.1), platelets 183, elevated BUN and normal creatinine. COS is 21. Coagulation panel is pending. 10:50 PM - Patient evaluated. No distress. Said feels dizzy upon using commode and also nauseous. No events of vomiting reported. Denied abdominal pain. She has had multiple episodes of dark bowel movements since drinking bowel prep and said that she has not have events of BRBPR. Abd exam: Nondistended, increased bowel sounds + nontenderness. Will start tx with Protonix 80 mg IV then q12h. Will continue to monitor VS and HH. Time Spent With Patient Time: Total time managing care of this patient today ____ minutes.
[2024-01-21 23:25] LABS: Alanine Aminotransferase 15 U/L (0-31); Albumin Level 3.6 g/dL (3.5-5.0); Alkaline Phosphatase 60 U/L (39-117); Anion Gap 14 (12-20); Aspartate Amino Transferase 19 U/L (5-31); Bilirubin Total 1.3 mg/dL (0.0-1.0); Blood Urea Nitrogen 20 mg/dL (9-16); Calcium 8.7 mg/dL (8.4-10.2); Carbon Dioxide 21 mmol/L (22-29); Chloride 109 mmol/L (96-108); Creatinine Clr Calc Pharmacy 64.4; Estimated Glomerular Filt Rate > 60; Glucose Random 131 mg/dL (60-115); Magnesium 1.8 mg/dL (1.6-2.6); Potassium 3.5 mmol/L (3.3-5.1); Sodium 140 mmol/L (135-145); Total Protein 5.6 g/dL (6.5-8.0)
[2024-01-21 23:26] LABS: Prothrombin Time 12.7 SEC (11.1-13.3)
[2024-01-21 23:29] LABS: Partial Thromboplastin Time 26.9 SEC (26.0-36.8)
[2024-01-21] MEDS: Pantoprazole Sodium 40 MG/10 ML VIAL 80 MG IVPUSH (23:52)
[2024-01-22] VITALS (10 sets, daily range): BP systolic 110–173; BP diastolic 39–80; PULSE 58–69; RESP 16–20; TEMP -14.1–37.2; O2SAT 92–97
[2024-01-22] MEDS: ondansetron HCL 4 MG/2 ML VIAL IVPUSH (00:23)
[2024-01-22] MEDS: Lactated Ringers 1,000 ML 125 ML IVCONT (05:42)
[2024-01-22] MEDS: Pantoprazole Sodium 40 MG/10 ML VIAL IVPUSH (05:43)
[2024-01-22 07:23] LABS: Hematocrit 28.2 % (37.0-47.0); Hemoglobin 9.9 g/dl (12.0-16.0)
[2024-01-22 07:39] LABS: Anion Gap 11 (12-20); Blood Urea Nitrogen 13 mg/dL (9-16); Calcium 8.6 mg/dL (8.4-10.2); Carbon Dioxide 23 mmol/L (22-29); Chloride 109 mmol/L (96-108); Creatinine Clr Calc Pharmacy 74.1; Estimated Glomerular Filt Rate > 60; Glucose Random 105 mg/dL (60-115); Potassium 3.3 mmol/L (3.3-5.1); Sodium 140 mmol/L (135-145)
[2024-01-22] MEDS: carvediloL 25 MG TABLET PO ×2 (08:18→17:25)
[2024-01-22] MEDS: dilTIAZem HCL CD 240 MG CAP.ER.DEG PO (08:18)
--- NOTE | 2024-01-22 10:33 | HO.ANESPROP2 ---
[facility] Active Problems Active Problems: All Active Problems (Updated 01/21/24 @ 15:49 by Ranjith Chambers MD) Lower GI bleed (Acute) Rectal hemorrhage (Acute) (HFpEF) heart failure with preserved ejection fraction (Acute) Cardiac pacemaker in situ (Acute) Permanent atrial fibrillation (Acute) Atrial tachycardia (Acute) Closed fracture of greater tuberosity of humerus (Acute) Injury of axillary nerve, left arm, subsequent encounter (Acute) Anemia (Acute) S/P hip hemiarthroplasty (Acute) Left displaced femoral neck fracture (Acute) Closed fracture dislocation of left shoulder (Acute) Femoral neck fracture (Acute) Cough (Acute) Dyspnea on exertion (Acute) Decreased diffusion capacity (Acute) Pulmonary nodules (Acute) SOB (shortness of breath) on exertion (Acute) Chronic cough (Acute) UTI (urinary tract infection) (Acute) Diastolic dysfunction (Acute) Past Medical History Medical History (HFpEF) heart failure with preserved ejection fraction Cardiac pacemaker in situ Permanent atrial fibrillation Paroxysmal atrial fibrillation Preoperative cardiovascular examination NSTEMI (non-ST elevated myocardial infarction) Pulmonary hypertension Chronic heart failure with preserved ejection fraction (HFpEF) Chronic heart failure with preserved ejection fraction (HFpEF) Cardiomyopathy Pulmonary hypertension Diastolic dysfunction History of cardiomyopathy HTN (hypertension) History of cardioversion Family History Family History Father Cancer Mother Stroke Brother Atrial fibrillation Sister Cardiovascular disease Atrial fibrillation Family history of problems with anesthesia: No Surgical History Surgical History S/P cardiac catheterization Hx of total hip arthroplasty Hx of cardiac cath Hx of hand surgery History of back surgery History of Problems with Anesthesia: No Social History Social History Household Members: None Housing: House Do you presently have visiting nurse or other home services: No Unable to assess alcohol history related to: Unknown Alcohol intake: former Comment: pt refusing bed alarm Patient Tobacco Use Status: Never used Tobacco Second Hand Smoke Exposure: No Use of substances other than those prescribed or required for medical reasons: No Currently Displaying Signs/Symptoms of Drug Intoxication Withdrawal: No Have you been hit, kicked, punched, or otherwise hurt by someone within the past year? If so, by whom?: No Do you feel safe in your current relationship?: No Current Relationship Is there a partner from a previous relationship who is making you feel unsafe now?: No Are you made to feel afraid or neglected: No Advance Directives: Yes Advance Directives on File: Yes Advance Directives Date on File: 12/18/22 Do you have a plan to hurt others: No Plan Recently lost weight without trying: No Eating poorly because of decreased appetite: No Nutrition Risks: No Nutritional Risk Patient : No : No Poor oral hygiene: No service: No Current occupational status: retired [employer] Allergies Allergy/AdvReac Type Severity Reaction Status Date / Time aspirin [ASPIRIN] Allergy Unknown RASH Verified 01/20/24 07:36 Sulfa (Sulfonamide Allergy Unknown RASH Verified 01/20/24 07:36 Antibiotics) [SULFA (SULFONAMIDE ANTIBIOTICS)] flecainide AdvReac Intermediate Dizziness Verified 01/20/24 07:36 amiodarone AdvReac Mild Dizziness Verified 01/20/24 07:36 Digitalis Glycosides AdvReac Confusion Verified 01/20/24 07:36 adhesives AdvReac Unknown Uncoded 01/20/24 07:36 Active Medications: Current Medications Acetaminophen (Acetaminophen 325 Mg Tablet) 650 mg PO Q6H PRN PRN Reason: Pain, Mild (Pain Scale 1-3) Albuterol/Ipratropium (Albuterol/Iprat 2.5/0.5mg 3 Ml Ampul.Neb) 3 ml INHALE Q4H PRN PRN Reason: for wheezing Ascorbic Acid (Ascorbic Acid 500 Mg Tablet) 1,000 mg PO DAILY [facility] Last Admin: 01/22/24 08:40 Dose: Not Given Atorvastatin Calcium (Atorvastatin Calcium 40 Mg Tablet) 40 mg PO DAILY [facility] Last Admin: 01/22/24 08:40 Dose: Not Given Carvedilol (Carvedilol 25 Mg Tablet) 25 mg PO BIDWM [facility]; Protocol Last Admin: 01/22/24 08:18 Dose: 25 mg Diltiazem HCl (Diltiazem Hcl Cd 240 Mg Cap.Er.Deg) 240 mg PO DAILY [facility]; Protocol Last Admin: 01/22/24 08:18 Dose: 240 mg Furosemide (Furosemide 40 Mg Tablet) 40 mg PO DAILY [facility]; Protocol Last Admin: 01/21/24 09:32 Dose: 40 mg Gabapentin (Gabapentin 300 Mg Capsule) 600 mg PO BEDTIME [facility] Last Admin: 01/21/24 21:12 Dose: 600 mg Lactated Ringer's (Lr) 1,000 mls @ 125 mls/hr IVCONT .Q8H [facility] Last Admin: 01/22/24 05:42 Dose: 125 mls/hr Loratadine (Loratadine 10 Mg Tablet) 10 mg PO DAILY [facility] Last Admin: 01/22/24 08:41 Dose: Not Given Magnesium Hydroxide (Milk Of Magnesia 30 Ml Oral.Susp) 30 ml PO DAILY PRN PRN Reason: Constipation Magnesium Oxide (Magnesium Oxide 400 Mg Tablet) 200 mg PO BEDTIME [facility] Last Admin: 01/21/24 21:11 Dose: 200 mg Melatonin (Melatonin 3 Mg Tablet) 6 mg PO BEDTIME PRN PRN Reason: Insomnia Montelukast Sodium (Montelukast Sodium 10 Mg Tablet) 10 mg PO BEDTIME [facility] Last Admin: 01/21/24 21:12 Dose: 10 mg Multivitamins/Vitamin C (Multivitamin Tablet) 1 tab PO DAILY [facility] Last Admin: 01/22/24 08:41 Dose: Not Given Ondansetron HCl (Ondansetron Hcl 4 Mg/2 Ml Vial) 4 mg IVPUSH Q8H PRN PRN Reason: Nausea and Vomiting Last Admin: 01/22/24 00:23 Dose: 4 mg Pantoprazole Sodium (Pantoprazole Sodium 40 Mg/10 Ml Vial) 40 mg IVPUSH BID@0630,1630 [facility] Last Admin: 01/22/24 05:43 Dose: 40 mg Sodium Biphosphate/Sodium Phosphate (Sodium Phosphate,[place]-Dibasic 133 Ml Enema) 133 ml NE ONCE PRN PRN Reason: Poor Colonoscopy Prep Results Sodium Chloride (0.9 % Sodium Chloride Flush 3 Ml Syringe) 3 ml IVFLUSH QSHIFT [facility] Last Admin: 01/22/24 09:30 Dose: Not Given Vitamin D (Cholecalciferol (Vitamin D3) 25 Mcg Tablet) 25 mcg PO DAILY [facility] Last Admin: 01/22/24 08:41 Dose: Not Given Vitamin E (Vitamin E (Dl,Tocopheryl Acet) 180 Mg (400 Unit) Capsule) 180 mg PO DAILY [facility] Last Admin: 01/22/24 08:42 Dose: Not Given Home Medications ?Medication ?Instructions ?Recorded ?Confirmed ?Last Taken ?Type montelukast 10 mg tablet 10 mg PO BEDTIME 05/16/20 01/20/24 09/02/23 History fexofenadine 180 mg tablet 180 mg PO DAILY 06/21/21 01/20/24 09/02/23 History (Shea Allergy) coenzyme Q10 100 mg tablet 100 mg PO DAILY 07/28/21 01/20/24 09/02/23 History magnesium 250 mg tablet 250 mg PO BEDTIME 07/28/21 01/20/24 09/02/23 History multivitamin 1 tab PO DAILY 07/28/21 01/20/24 09/02/23 History vitamin E (dl, acetate) 180 mg 180 mg PO DAILY 07/28/22 01/20/24 09/02/23 History (400 unit) capsule ascorbic acid (vitamin C) 500 mg 1,000 mg PO DAILY 09/26/22 01/20/24 09/02/23 History tablet furosemide 40 mg tablet 40 mg PO DAILY 09/26/22 01/20/24 09/02/23 History omeprazole 40 mg capsule,delayed 40 mg PO BEDTIME 09/26/22 01/20/24 09/02/23 History release turmeric 400 mg capsule 400 mg PO DAILY@1200 11/03/22 01/20/24 09/02/23 History gabapentin 300 mg capsule 600 mg PO BEDTIME 04/06/23 01/20/24 09/02/23 History meloxicam 15 mg tablet 15 mg PO DAILY 04/06/23 01/20/24 09/02/23 History cholecalciferol (vitamin D3) 25 25 mcg PO DAILY 09/03/23 01/20/24 09/02/23 History mcg (1,000 unit) capsule (Vitamin D3) diltiazem HCl 240 mg 240 mg PO DAILY 01/20/24 01/20/24 Unknown History capsule,extended release 24 hr, controlled (DILT-XR) Exam Height,Weight and Vital Signs: Height 5 ft 5 in Weight 84.5 kg Last Vital Signs Temp 97.7 F 01/22/24 08:00 Pulse 58 01/22/24 08:18 Resp 20 01/22/24 08:00 BP 160/80 H 01/22/24 08:18 Pulse Ox 97 01/22/24 08:00 O2 Del Method Room Air 01/22/24 08:00 Pertinent Lab Results Pertinent Lab Results: Laboratory Tests 01/20/24 01/20/24 01/20/24 07:56 08:01 11:41 WBC 11.3 H RBC 3.64 L Hgb 12.2 Hct 35.2 L MCV 96.7 MCH 33.5 H MCHC 34.7 RDW 12.2 Plt Count 207 MPV 9.2 L Immature Gran % (Auto) 0.4 Neut % (Auto) 77.6 H Lymph % (Auto) 13.4 L [place] % (Auto) 6.2 Eos % (Auto) 1.9 Baso % (Auto) 0.5 Lymph # (Auto) 1.5 [place] # (Auto) 0.7 Eos # (Auto) 0.2 Baso # (Auto) 0.1 Abs Immat Gran (auto) 0.04 H Absolute Neuts (auto) 8.8 H Absolute Nucleated RBC 0.000 Nucleated RBC % (auto) 0.0 PT 15.7 H INR 1.3 H APTT Sodium 141 Potassium 4.7 Chloride 111 H Carbon Dioxide 22 Anion Gap 13 BUN 34 H Creatinine 1.04 Estim Creat Clear Calc 47.2 Estimated GFR 51 Random Glucose 223 H Calcium 8.6 Magnesium 2.2 Total Bilirubin 1.1 H AST 18 ALT 17 Alkaline Phosphatase 70 B-Natriuretic Peptide 266 H Total Protein 5.7 L Albumin 3.6 Urine Color Yellow Urine Appearance Clear Urine pH 5.5 Ur Specific [place] >= 1.030 H Urine Protein Trace Urine Glucose (UA) >=1000 H Urine Ketones Negative Urine Blood Large (3+) H Urine Nitrite Negative Ur Leukocyte Esterase Negative Urine RBC 0-2 Urine WBC 0-5 Ur Squamous Epith Cells 3-5 Urine Bacteria Trace Hyaline Casts 0-2 Stool Occult Blood POSITIVE Blood Type O Positive Antibody Screen NEGATIVE 01/20/24 01/20/24 01/21/24 12:06 17:53 06:34 WBC 10.0 8.1 6.1 RBC 3.62 L 3.37 L 3.04 L Hgb 11.9 L 11.1 L 10.1 L Hct 35.0 L 32.1 L 29.6 L MCV 96.7 95.3 97.4 MCH 32.9 32.9 33.2 H MCHC 34.0 34.6 34.1 RDW 12.4 12.4 12.5 Plt Count 180 176 159 L MPV 9.0 L 9.8 9.2 L Immature Gran % (Auto) 0.4 0.8 H Neut % (Auto) 77.5 H 60.2 Lymph % (Auto) 16.3 L 27.8 [place] % (Auto) 5.0 9.2 Eos % (Auto) 0.5 1.3 Baso % (Auto) 0.3 0.7 Lymph # (Auto) 1.6 1.7 [place] # (Auto) 0.5 0.6 Eos # (Auto) 0.1 0.1 Baso # (Auto) 0.0 0.0 Abs Immat Gran (auto) 0.04 H 0.05 H Absolute Neuts (auto) 7.8 3.7 Absolute Nucleated RBC 0.000 0.000 0.000 Nucleated RBC % (auto) 0.0 0.0 0.0 PT INR APTT Sodium 143 Potassium 3.9 Chloride 116 H Carbon Dioxide 21 L Anion Gap 10 L BUN 22 H Creatinine 0.69 Estim Creat Clear Calc 70.9 Estimated GFR > 60 Random Glucose 96 Calcium 8.3 L Magnesium Total Bilirubin AST ALT Alkaline Phosphatase B-Natriuretic Peptide Total Protein Albumin Urine Color Urine Appearance Urine pH Ur Specific [place] Urine Protein Urine Glucose (UA) Urine Ketones Urine Blood Urine Nitrite Ur Leukocyte Esterase Urine RBC Urine WBC Ur Squamous Epith Cells Urine Bacteria Hyaline Casts Stool Occult Blood Blood Type Antibody Screen 01/21/24 01/21/24 01/22/24 22:28 23:04 06:44 WBC 8.4 RBC 2.98 L Hgb 10.0 L 9.9 L Hct 28.6 L 28.2 L MCV 96.0 MCH 33.6 H MCHC 35.0 RDW 12.5 Plt Count 183 MPV 9.1 L Immature Gran % (Auto) 0.7 H Neut % (Auto) 65.2 Lymph % (Auto) 22.9 [place] % (Auto) 9.2 Eos % (Auto) 1.5 Baso % (Auto) 0.5 Lymph # (Auto) 1.9 [place] # (Auto) 0.8 Eos # (Auto) 0.1 Baso # (Auto) 0.0 Abs Immat Gran (auto) 0.06 H Absolute Neuts (auto) 5.5 Absolute Nucleated RBC 0.000 Nucleated RBC % (auto) 0.0 PT 12.7 INR 1.0 APTT 26.9 Sodium 140 140 Potassium 3.5 3.3 Chloride 109 H 109 H Carbon Dioxide 21 L 23 Anion Gap 14 11 L BUN 20 H 13 Creatinine 0.76 0.66 Estim Creat Clear Calc 64.4 74.1 Estimated GFR > 60 > 60 Random Glucose 131 H 105 Calcium 8.7 8.6 Magnesium 1.8 Total Bilirubin 1.3 H AST 19 ALT 15 Alkaline Phosphatase 60 B-Natriuretic Peptide Total Protein 5.6 L Albumin 3.6 Urine Color Urine Appearance Urine pH Ur Specific [place] Urine Protein Urine Glucose (UA) Urine Ketones Urine Blood Urine Nitrite Ur Leukocyte Esterase Urine RBC Urine WBC Ur Squamous Epith Cells Urine Bacteria Hyaline Casts Stool Occult Blood Blood Type Antibody Screen Airway Mallampati Class: III TM Dist: >3cm Neck ROM: Full Assessment and Plan Assessment Anesthesia Assessment: Anesthesia Plan Discussed and Chart Reviewed Final Anesthetic Review Family History of Problems with Anesthesia: No History of Problems with Anesthesia: No NPO: Yes ASA Class: III Final Preanesthetic Review: No Changes in Pt Med Stat, Meds/Allgs Chart Reviewed, Consent Obtained/Reviewed and Anes Risks/Benef Reviewed Patient Risk: Intermediate Procedure Risk: Low Anesthetic Plan Anesthetic Plan: TIVA Disposition: Standard PACU
--- NOTE | 2024-01-22 12:16 | PM.OP ---
Brief Operative Note Date of Service: 01/22/24 Pre-op diagnosis: Lower GI bleed Post-op diagnosis: other (Diverticulosis, Colon polyp) Procedure: Colonoscopy to the cecum with bx/removal of polyp Surgeon: Ranjith Chambers MD Anesthesia: MAC Was an Overhead Crane Technician used for this Procedure?: No Estimated blood loss (mL): 2.0 Pathology: other (A. Cecal polyp) Condition: stable Disposition: PACU
--- NOTE | 2024-01-22 12:17 | PM.EVENT ---
Event Note Date of Service: 01/22/24 Event Note: GI-Colonoscopy to the cecum with biopsy/removal of polyp-Full note dictated Findings: 1. 4mm cecal polyp bx/removed 2. Sigmoid diverticulosis 3. Internal hemorrhoids No fresh nor old blood Imp: Resolved diverticular bleed Rec: Advance diet, hold blood thinners for 1-2 weeks, stop NSAIDs(Meloxicam) while on blood thinners. Thanks Time Spent With Patient Time: Total time managing care of this patient today ____ minutes.
--- NOTE | 2024-01-22 13:48 | HO.PM.IMPN ---
Subjective Subjective Date of Service: 01/22/24 Interval History: Seen and examined this morning Follow-up for rectal bleeding Add some dark red output after starting prep yesterday no further bleeding overnight no abdominal pain Review of Systems Review of Systems: Yes all other systems are reviewed and are negative Constitutional Constitutional: Denies chills and Denies fever(s) Physical Exam Vital Signs: Vital Signs: Last Vital Signs Temp 98.1 F 01/22/24 12:40 Pulse 60 01/22/24 12:40 Resp 16 01/22/24 12:40 BP 132/55 L 01/22/24 12:40 Pulse Ox 95 01/22/24 12:40 O2 Del Method Nasal Cannula 01/22/24 12:40 O2 Flow Rate 3 01/22/24 12:40 BMI result Body Mass Index 31.0 Const: General: cooperative, comfortable, alert and awake Nutritional Appearance: overweight Orientation/consciousness: patient oriented x3 Resp: Effort & Inspection: normal respiratory effort, able to speak in complete sentences, no respiratory distress and no use of accessory muscles Cardio: Rate: regular rate GI: Inspection: No distended Palpation (GI): Soft to palpation and nontender Neuro: General: patient oriented x3, moves all extremities and CN's II-XI intact bilaterally Extrem: General: Yes no pedal edema Objective Data Active Medications Acetaminophen (Acetaminophen 325 Mg Tablet) 650 mg PO Q6H PRN PRN Reason: Pain, Mild (Pain Scale 1-3) Albuterol/Ipratropium (Albuterol/Iprat 2.5/0.5mg 3 Ml Ampul.Neb) 3 ml INHALE Q4H PRN PRN Reason: for wheezing Ascorbic Acid (Ascorbic Acid 500 Mg Tablet) 1,000 mg PO DAILY [facility] Last Admin: 01/22/24 08:40 Dose: Not Given Documented By: NICOLE Non-Admin Reason: NPO Atorvastatin Calcium (Atorvastatin Calcium 40 Mg Tablet) 40 mg PO DAILY [facility] Last Admin: 01/22/24 08:40 Dose: Not Given Documented By: NICOLE Non-Admin Reason: NPO Carvedilol (Carvedilol 25 Mg Tablet) 25 mg PO BIDWM [facility]; Protocol Last Admin: 01/22/24 08:18 Dose: 25 mg Documented By: NICOLE Diltiazem HCl (Diltiazem Hcl Cd 240 Mg Cap.Er.Deg) 240 mg PO DAILY [facility]; Protocol Last Admin: 01/22/24 08:18 Dose: 240 mg Documented By: NICOLE Furosemide (Furosemide 40 Mg Tablet) 40 mg PO DAILY [facility]; Protocol Last Admin: 01/21/24 09:32 Dose: 40 mg Documented By: MELIDA Gabapentin (Gabapentin 300 Mg Capsule) 600 mg PO BEDTIME [facility] Last Admin: 01/21/24 21:12 Dose: 600 mg Documented By: MIKAL Lactated Ringer's (Lr) 1,000 mls @ 125 mls/hr IVCONT .Q8H [facility] Last Admin: 01/22/24 05:42 Dose: 125 mls/hr Documented By: MIKAL Loratadine (Loratadine 10 Mg Tablet) 10 mg PO DAILY [facility] Last Admin: 01/22/24 08:41 Dose: Not Given Documented By: NICOLE Non-Admin Reason: NPO Magnesium Hydroxide (Milk Of Magnesia 30 Ml Oral.Susp) 30 ml PO DAILY PRN PRN Reason: Constipation Magnesium Oxide (Magnesium Oxide 400 Mg Tablet) 200 mg PO BEDTIME [facility] Last Admin: 01/21/24 21:11 Dose: 200 mg Documented By: MIKAL Melatonin (Melatonin 3 Mg Tablet) 6 mg PO BEDTIME PRN PRN Reason: Insomnia Montelukast Sodium (Montelukast Sodium 10 Mg Tablet) 10 mg PO BEDTIME [facility] Last Admin: 01/21/24 21:12 Dose: 10 mg Documented By: MIKAL Multivitamins/Vitamin C (Multivitamin Tablet) 1 tab PO DAILY [facility] Last Admin: 01/22/24 08:41 Dose: Not Given Documented By: NICOLE Non-Admin Reason: NPO Omeprazole (Omeprazole 40 Mg Capsule.Dr) 40 mg PO DAILY@0630 [facility] Ondansetron HCl (Ondansetron Hcl 4 Mg/2 Ml Vial) 4 mg IVPUSH Q8H PRN PRN Reason: Nausea and Vomiting Last Admin: 01/22/24 00:23 Dose: 4 mg Documented By: MIKAL Sodium Chloride (0.9 % Sodium Chloride Flush 3 Ml Syringe) 3 ml IVFLUSH QSHIFT [facility] Last Admin: 01/22/24 09:30 Dose: Not Given Documented By: NICOLE Non-Admin Reason: IV Running Vitamin D (Cholecalciferol (Vitamin D3) 25 Mcg Tablet) 25 mcg PO DAILY [facility] Last Admin: 01/22/24 08:41 Dose: Not Given Documented By: NICOLE Non-Admin Reason: NPO Vitamin E (Vitamin E (Dl,Tocopheryl Acet) 180 Mg (400 Unit) Capsule) 180 mg PO DAILY [facility] Last Admin: 01/22/24 08:42 Dose: Not Given Documented By: NICOLE Non-Admin Reason: NPO Labs 01/22/24 06:44 01/22/24 06:44 Labs: Laboratory Results - last 24 hr 01/21/24 01/21/24 01/22/24 22:28 23:04 06:44 MCV 96.0 MCH 33.6 H MCHC 35.0 RDW 12.5 Plt Count 183 MPV 9.1 L Immature Gran % (Auto) 0.7 H Neut % (Auto) 65.2 Lymph % (Auto) 22.9 [place] % (Auto) 9.2 Eos % (Auto) 1.5 Baso % (Auto) 0.5 Lymph # (Auto) 1.9 [place] # (Auto) 0.8 Eos # (Auto) 0.1 Baso # (Auto) 0.0 Abs Immat Gran (auto) 0.06 H Absolute Neuts (auto) 5.5 Absolute Nucleated RBC 0.000 Nucleated RBC % (auto) 0.0 PT 12.7 INR 1.0 APTT 26.9 Anion Gap 14 11 L Estim Creat Clear Calc 64.4 74.1 Estimated GFR > 60 > 60 Random Glucose 131 H 105 Calcium 8.7 8.6 Magnesium 1.8 Total Bilirubin 1.3 H AST 19 ALT 15 Alkaline Phosphatase 60 Total Protein 5.6 L Albumin 3.6 Assessment and Plan (1) Lower GI bleed: Status: Acute Plan This is a 78-year-old female with history paroxysmal atrial fibrillation anticoagulated with eliquis history of cardioversion x9 and x3 cardio ablation, heart failure preserved ejection fraction, pulmonary hypertension, coronary artery disease, cardiomyopathy, hypertension admitted for further management of acute lower GI bleed. acute lower GI bleed with acute blood loss anemia CT abdomen/pelvis shows possible active rectal hemorrhage no significant bleeding since admission H/H drifting down slightly Plan for colonoscopy today Hold eliquis GI following paroxysmal atrial fibrillation-rate controlled hold Eliquis in setting of above -continue carvedilol and diltiazem for rate control CAD/cardiomyopathy/heart failure preserved ejection fraction clinically euvolemic hold lasix while receiving IVF continue carvedilol, diltiazem Jardiance on hold hypertension blood pressure reasonably controlled, no ongoing bleeding continue carvedilol, diltiazem HLD Continue statin DVT prophylaxis- scps full code Patient requires ongoing inpatient management of acute lower GI bleed with acute blood loss anemia requiring IV fluids, expert consultation and colonoscopy with close monitoring of blood counts and hemodynamics to prevent decompensation Quality Stroke Does the patient have a stroke diagnosis?: No VTE Prior VTE?: No VTE Risk Level:: Medical - moderate - high VTE Device Contraindication: N/A - Device Ordered VTE Drug Contraindication: Treatment Not Indicated
--- NOTE | 2024-01-22 14:30 | OP_ITS ---
DATE OF SERVICE: 01/22/2024 SURGEON: Ranjith Chambers MD INDICATIONS: The patient presents for evaluation of lower GI bleeding. Full consent has been obtained from her for this, including risks of bleeding and perforation. PREOPERATIVE DIAGNOSIS: Lower gastrointestinal bleeding. POSTOPERATIVE DIAGNOSIS: PROCEDURE PERFORMED: Colonoscopy to the cecum with biopsy and removal of polyp. ESTIMATED BLOOD LOSS: COMPLICATIONS: ANESTHESIA: Monitored anesthesia care. ASSISTANTS: SPECIMENS: POSTOPERATIVE DIAGNOSES: Lower gastrointestinal bleeding, small cecal polyp, diverticulosis, and internal hemorrhoids. DESCRIPTION OF PROCEDURE: The patient was placed in the left lateral decubitus position. The digital rectal exam revealed no abnormalities. The Olympus video pediatric colonoscope was then entered into the rectum and advanced easily to the cecum. Once in the cecum, I did identify normal-appearing cecal pouch with appendiceal orifice and a normal-appearing ileocecal valve. The entire cecum was well visualized and appeared normal other than a 3 or 4 mm polyp just outside the appendiceal orifice. This was biopsied and completely removed with the cold biopsy forceps. The scope was then slowly withdrawn assessing all mucosal surfaces carefully. Preparation was excellent. I did not visualize any sign of polyps, colitis, nor angiodysplasias. There was a mild amount of sigmoid diverticulosis. In the rectum, the scope was retroflexed, visualizing some internal hemorrhoids, but no other pathology. The rectal mucosa appeared normal. The scope was straightened. Of note, there was no fresh blood nor old blood in the colon. The scope was withdrawn from the patient. She tolerated the procedure well and was returned to the recovery area in stable condition. IMPRESSION: 1. Diverticulosis with a resolved diverticular bleed. 2. Small colon polyp. PLAN: The patient will have her diet advanced. I would recommend holding her blood thinners for another 1 or 2 weeks. She should avoid all NSAIDs including her meloxicam while on blood thinners in general. Given these minimal findings and her age, I do not think she would need any further colonoscopies from a screening standpoint. This has been discussed with her family. MD MERT Marti/PATTI / [id number]
--- NOTE | 2024-01-22 15:37 | MHC.CM.PN ---
EMR reviewed and per MD rounds, pt is not medically cleared for discharge today due to management of GI bleed, with pt having a colonoscopy today.
--- NOTE | 2024-01-22 17:26 | PM.DS ---
DS: Providers Provider Date of Service: 01/22/24 Date of admission: 01/20/24 13:40 Date of discharge: 01/22/24 Primary care physician: Yair Huff MD Consults: 01/20/24 13:39 Consult to Gastroenterology Routine Consulting Provider: Ranjith Chambers Reason for consultation: lower gi bleed Attending [facility] Discharging clinician: Mary Stack DS: Diagnosis Discharge Diagnosis (1) Lower GI bleed: Status: Acute DS: Summary Hospital Course Hospital Course: From H&P on the day of admission 78-year-old female with history paroxysmal atrial fibrillation anticoagulated with eliquis history of cardioversion x9 and x3 cardio ablation, heart failure preserved ejection fraction, pulmonary hypertension, coronary artery disease, cardiomyopathy, hypertension presented to the ED from home for evaluation of bright red blood per rectum. She reports she awoke around 04:00 with urgency to move her bowels. She had thought she would had diarrhea and returned to bed. However several hours later awoke again with the same urgency and realized it was actually blood coming out of the rectum independent of any stool. Denies any associated abdominal pain, nausea, vomiting. Last normal bowel movement was yesterday. She is currently taking Eliquis x1 month after being changed from Xarelto for her atrial fibrillation. On arrival, blood pressure is soft at 96/50 115/61, but vitals otherwise within normal limits. Initial H/H 12.2/35.2 and on repeat 11.9/35.0% (baseline 14.8/43.4% 01/07/24). Renal function baseline, BUN 34, electrolyte levels normal. Glucose 223. Total bilirubin 1.1. BNP 266. Urinalysis with 3+ blood with significant glucose and elevated specific gravity, otherwise unremarkable. CT abdomen pelvis shows irregular relatively high attenuation areas seen in the anterior rectum which appears to increase at 2 minute delay postcontrast changes consistent with active rectal hemorrhage but diagnosis markedly compromised due to extensive metallic artifacts. There are also chronic changes noticed. EKG shows atrial flutter with 3-1 block, controlled rate at [address]/T-wave abnormalities. In the ED received 1 L IV fluid bolus and has been started on maintenance fluids. ED provider did discuss case with Gastroenterology recommending admission for evaluation of lower GI bleed. acute lower GI bleed with acute blood loss anemia CT abdomen/pelvis shows possible active rectal hemorrhage no significant bleeding since admission H/H drifting down slightly. susie placed on hold. Seen by GI and underwent colonoscopy January 21 with the following findings: Findings: 1. 4mm cecal polyp bx/removed 2. Sigmoid diverticulosis 3. Internal hemorrhoids No fresh nor old blood Impression: Resolved diverticular bleed Reccommend to hold blood thinners for 1-2 weeks, stop NSAIDs(Meloxicam) while on blood thinners Her diet was advanced and she was eager to return home. paroxysmal atrial fibrillation-rate controlled continue carvedilol and diltiazem for rate control. Eliquis was held as above Time Attestation Discharge Coordination Time (in mins): 32 Quality: Safe Use of Opioids Does Pt have an Active Cancer Diagnosis on the Problem List?: No Quality: Stroke Does the patient have a stroke diagnosis?: No Physical Exam Vital Signs: Vital Signs: Last Vital Signs Temp 6.6 F L 01/22/24 15:28 Pulse 65 01/22/24 17:25 Resp 18 01/22/24 15:28 BP 141/60 H 01/22/24 17:25 Pulse Ox 96 01/22/24 15:28 O2 Del Method Room Air 01/22/24 15:28 O2 Flow Rate 3 01/22/24 12:40 BMI result Body Mass Index 31.0 Const: General: cooperative, comfortable, alert and awake Nutritional Appearance: overweight Orientation/consciousness: patient oriented x3 Resp: Effort & Inspection: normal respiratory effort, able to speak in complete sentences, no respiratory distress and no use of accessory muscles Cardio: Rate: regular rate GI: Inspection: No distended Palpation (GI): Soft to palpation and nontender Neuro: General: patient oriented x3, moves all extremities and CN's II-XI intact bilaterally Extrem: General: Yes no pedal edema DS: Data Data Completed and Pending Completed studies during hospitalization [Text1]: Procedures Replacement of Left Hip Joint, Femoral Surface with Synthetic Substitute, Uncemented, Open Approach (12/18/22) Jew of Cardiac Rhythm, Single (09/10/22) Transfusion of Nonautologous Red Blood Cells into Peripheral Vein, Percutaneous Approach (12/18/22) Ultrasonography of Heart with Aorta, Transesophageal (07/27/21) Pending studies at discharge: Pending at discharge 01/22/24 11:34 Surgical [PTH] Routine Labs on day of discharge: Laboratory Results - last 24 hr 01/21/24 01/21/24 01/22/24 22:28 23:04 06:44 WBC 8.4 RBC 2.98 L Hgb 10.0 L 9.9 L Hct 28.6 L 28.2 L MCV 96.0 MCH 33.6 H MCHC 35.0 RDW 12.5 Plt Count 183 MPV 9.1 L Immature Gran % (Auto) 0.7 H Neut % (Auto) 65.2 Lymph % (Auto) 22.9 [place] % (Auto) 9.2 Eos % (Auto) 1.5 Baso % (Auto) 0.5 Lymph # (Auto) 1.9 [place] # (Auto) 0.8 Eos # (Auto) 0.1 Baso # (Auto) 0.0 Abs Immat Gran (auto) 0.06 H Absolute Neuts (auto) 5.5 Absolute Nucleated RBC 0.000 Nucleated RBC % (auto) 0.0 PT 12.7 INR 1.0 APTT 26.9 Sodium 140 140 Potassium 3.5 3.3 Chloride 109 H 109 H Carbon Dioxide 21 L 23 Anion Gap 14 11 L BUN 20 H 13 Creatinine 0.76 0.66 Estim Creat Clear Calc 64.4 74.1 Estimated GFR > 60 > 60 Random Glucose 131 H 105 Calcium 8.7 8.6 Magnesium 1.8 Total Bilirubin 1.3 H AST 19 ALT 15 Alkaline Phosphatase 60 Total Protein 5.6 L Albumin 3.6 Discharge Plan Discharge Anticipated Discharge Date/Time: 01/22/24 17:30 Patient Disposition: Home, Self-Care Discharge Diagnosis: Lower GI bleeding due to diverticular bleed Referrals: Yair Huff MD [Primary Care Provider] - 1 Week Discharge Medications: Continued ipratropium-albuterol 0.5 mg-3 mg(2.5 mg base)/3 mL solution for nebulization 3 ml inhalation Q4-6H PRN (Reason: for wheezing) Qty: 180 0RF atorvastatin 40 mg tablet 40 mg PO DAILY Qty: 90 3RF Jardiance 10 mg tablet 10 mg PO DAILY 90 Days Qty: 90 3RF carvedilol 25 mg tablet 25 mg PO BIDWM Qty: 60 5RF Protocol: Hold for SBP/HR < HOLD for SBP < : 90 HOLD for HR < : 60 coenzyme Q10 100 mg Tablet 100 mg PO DAILY multivitamin Tablet 1 tab PO DAILY magnesium 250 mg Tablet 250 mg PO BEDTIME vitamin E (dl, acetate) 180 mg (400 unit) Capsule 180 mg PO DAILY ascorbic acid (vitamin C) 500 mg Tablet 1,000 mg PO DAILY omeprazole 40 mg Capsule,Delayed Release(Dr/Ec) 40 mg PO BEDTIME furosemide 40 mg Tablet 40 mg PO DAILY cholecalciferol (vitamin D3) [Vitamin D3] 25 mcg (1,000 unit) Capsule 25 mcg PO DAILY diltiazem HCl [DILT-XR] 240 mg capsule,ext.rel 24h degradable 240 mg PO DAILY montelukast 10 mg tablet 10 mg PO BEDTIME gabapentin 300 mg capsule 600 mg PO BEDTIME fexofenadine [Shea Allergy] 180 mg tablet 180 mg PO DAILY turmeric 400 mg capsule 400 mg PO DAILY@1200 Held Eliquis 5 mg tablet 5 mg PO BID Qty: 60 5RF Hold Instructions: do not take for 10 days. resume 01/31 Discontinued meloxicam 15 mg tablet 15 mg PO DAILY Discharge Orders: Discharge Order (Routine); Ordered 01/22/24 Ordered By: Mary Stack Activity on Discharge: As tolerated Stand Alone Forms: Patient Portal Discharge page Print Language: Turkmen Care Plan Goals: Prevent future bleeding Health Concerns: Lower GI bleeding likely due to diverticular bleed findings of colonoscopy : Findings: 1. 4mm cecal polyp bx/removed 2. Sigmoid diverticulosis 3. Internal hemorrhoids No fresh nor old blood Plan of Treatment: Stop taking NSAIDs such as meloxicam while on anticoagulation with Eliquis Do not take Eliquis for the next 10 days, resumed January 31 GI office should be in touch with the results of polyp/bx Outpatient follow-up with PCP as needed Assessment: See discharge summary Discharge Date/Time: 01/22/24 18:18
== END 2024-01-22 18:18 | disposition home or self-care (01) | DRG 378 ==
LOC: HO.ED 13:05 → HO.EDOVER 13:47 → HO.IMC 15:30
PROVIDERS: Internal Medicine; Physician Assistant; Admitting Provider Physician Assistant; Emergency Provider Emergency Medicine Emergency Medical Services; PCP Family Medicine; Visit Provider Physician Assistant Medical
PROC: 0DJD8ZZ Inspection of Lower Intestinal Tract, Via Natural or Artificial Opening Endoscopic (ICD-10-PCS; CPT 45378; principal; 2024-01-22 10:30)
DX: K57.31 Diverticulosis of large intestine without perforation or abscess with bleeding (principal); D62 Acute posthemorrhagic anemia; I50.32 Chronic diastolic (congestive) heart failure; I42.9 Cardiomyopathy, unspecified; D12.0 Benign neoplasm of cecum; K64.8 Other hemorrhoids; I11.0 Hypertensive heart disease with heart failure; I25.10 Atherosclerotic heart disease of native coronary artery without angina pectoris; I27.20 Pulmonary hypertension, unspecified; I48.0 Paroxysmal atrial fibrillation; Z95.0 Presence of cardiac pacemaker; Z79.01 Long term (current) use of anticoagulants; Z79.899 Other long term (current) drug therapy
CPT/HCPCS: 36415; 74178; 80048; 80053; 81001; 82272; 83735; 83880; 85014; 85018; 85025; 85027; 85610; 85730; 86850; 86900; 86901; 88305; 99285; C9113; J2405; J2704; J7120; Q9967

== ENCOUNTER → 2024-01-20 13:40 | Outpatient (BNV) | payer MEDICARE, SELFPAY | PROVIDERS: Admitting Provider Physician Assistant; Emergency Provider Emergency Medicine Emergency Medical Services; PCP Family Medicine; Visit Provider Physician Assistant Medical | DX: K92.2 Gastrointestinal hemorrhage, unspecified (principal) | CPT/HCPCS: 99223; 99232; 99239; 99499 ==

== ENCOUNTER 2024-02-02 12:37 | Outpatient (AMB) | payer MEDICARE, SELFPAY ==
--- NOTE | 2024-02-02 12:43 | A.OFFVIS_ITS ---
Vital Signs 02/02/24 12:47 Height 5 ft 3 in Weight 182 lb 15.739 oz BMI 32.4 BP 130/80 Blood Pressure Location Lt brachial Position Sitting Pulse 66 Intake Visit Reasons: 3 mth fu w/ Medtronic Intake Note: 3 month follow-up with Medtr[employer] was in [facility] GI bleed Biomedical Engineering Aide Required: No Allergies aspirin [ASPIRIN] Allergy (Unknown, Verified 01/20/24 07:36) RASH Sulfa (Sulfonamide Antibiotics) [SULFA (SULFONAMIDE ANTIBIOTICS)] Allergy (Unknown, Verified 01/20/24 07:36) RASH flecainide Adverse Reaction (Intermediate, Verified 01/20/24 07:36) Dizziness amiodarone Adverse Reaction (Mild, Verified 01/20/24 07:36) Dizziness Digitalis Glycosides Adverse Reaction (Verified 01/20/24 07:36) Confusion adhesives Adverse Reaction (Uncoded 01/20/24 07:36) Unknown Medication List - Last Reconciled 02/02/24 by Franco Brennan MD apixaban (Eliquis) 5 mg PO BID ascorbic acid (vitamin C) 1,000 mg PO DAILY atorvastatin 40 mg PO DAILY carvedilol 25 mg See Protocol PO BIDWM cholecalciferol (vitamin D3) (Vitamin D3) 25 mcg PO DAILY coenzyme Q10 100 mg PO DAILY diltiazem HCl ER (DILT-XR) 240 mg PO DAILY empagliflozin (Jardiance) 10 mg PO DAILY 90 days fexofenadine (Shea Allergy) 180 mg PO DAILY furosemide 40 mg PO DAILY gabapentin 600 mg PO BEDTIME ipratropium-albuterol 0.5 mg-3 mg(2.5 mg base)/3 mL 3 mL inhalation Q4-6H PRN magnesium 250 mg PO BEDTIME montelukast 10 mg PO BEDTIME multivitamin 1 tab PO DAILY omeprazole 40 mg PO BEDTIME turmeric 400 mg PO DAILY@1200 vitamin E (dl, acetate) 180 mg PO DAILY HPI Comments Details: Chiquita comes for follow-up. She was admitted couple weeks ago with lower GI bleed with significant drop in his hematocrit. She discharged with hemoglobin of 9. Recently Cardizem was re added to her regimen due to elevated blood pressure. She was also advised to take iron pills whether she has not started that. She denies any further bleeding events. She has been feeling more tired since the episode. She denies any orthopnea, PND, leg edema. After the pacemaker adjustment last time to rate response she had improved in his functional capacity. She denies any heart failure symptoms at current time. Denies any lightheadedness, syncope. [facility] Medical History (HFpEF) heart failure with preserved ejection fraction Cardiac pacemaker in situ Permanent atrial fibrillation Paroxysmal atrial fibrillation Preoperative cardiovascular examination NSTEMI (non-ST elevated myocardial infarction) Pulmonary hypertension Chronic heart failure with preserved ejection fraction (HFpEF) Chronic heart failure with preserved ejection fraction (HFpEF) Cardiomyopathy Pulmonary hypertension Diastolic dysfunction History of cardiomyopathy HTN (hypertension) History of cardioversion Surgical History S/P cardiac catheterization Hx of total hip arthroplasty Hx of cardiac cath Hx of hand surgery History of back surgery Family History Father Cancer Mother Stroke Brother Atrial fibrillation Sister Cardiovascular disease Atrial fibrillation Social History Household Members: None Housing: House Do you presently have visiting nurse or other home services: No Unable to assess alcohol history related to: Unknown Alcohol intake: former Comment: pt refusing bed alarm Patient Tobacco Use Status: Never used Tobacco Second Hand Smoke Exposure: No Advance Directives Date on File: 12/18/22 service: No Current occupational status: retired Review of Systems Const Denies chills, Denies fatigue, Denies fever(s), Denies frequent falls, Denies weakness, Denies weight gain and Denies weight loss ENT Denies dizziness Card Denies chest pain, Denies leg edema, Denies lightheadedness, Denies palpitations, Denies dyspnea, Denies dyspnea on exertion, Denies orthopnea and Denies other (loss of consciousness) Resp Denies cough, Denies dyspnea and Denies dyspnea on exertion GI Denies hematochezia and Denies change in stool character Musc Denies abnormal gait, Denies muscle weakness, Denies numbness, Denies radiating pain into limb and Denies tingling Neuro Denies abnormal gait, Denies dizziness, Denies frequent falls, Denies numbness, Denies tingling and Denies weakness Endo Denies fatigue and Denies palpitations Physical Exam Vital Signs: Last Vital Signs Pulse 66 02/02/24 12:47 BP 130/80 02/02/24 12:47 BMI result Body Mass Index 32.4 Const General: cooperative, comfortable, no acute distress, alert and awake Nutritional Appearance: overweight Orientation/consciousness: patient oriented x3 Limitations: other limitations (In a stretcher) Neck Neck: Yes trachea midline, Yes supple and Yes no JVD Chest Chest palpation & inspection: abnormal inspection of the chest kyphotic and scoliotic Resp Effort & Inspection: normal respiratory effort Auscultation: clear to auscultation bilaterally and diminished lung sounds Cardio Jugular venous distension: no JVD Palpation: normal PMI Rate: regular rate Rhythm: regular rhythm Heart sounds: S1 normal heart sound present and S2 normal heart sound present GI Auscultation: normal bowel sounds Skin General skin exam: no rashes or lesions noted Neuro General: patient oriented x3 and no focal motor deficits Extrem General: Yes no clubbing, cyanosis or edema Psych Appearance: grossly normal Office Procedures Cardiac Device Check Cardiac Device Check Details: Single-chamber Medtronic pacemaker in place programmed in VVIR at 60 beats per minute. Ventricular pacing 100% of time. Ventricular pacing thresholds excellent and reprogrammed to enhance battery life. Battery life is at about 14 years [id number] Cardiac Device Check, leadless/single lead pacemaker Procedure code (CPT) selection complete Assessment & Plan Assessment & Plan (1) Permanent atrial fibrillation: Comment: Status post AV estiven ablation Code(s): I48.21 - Permanent atrial fibrillation Category: Medical Plan: Permanent atrial fibrillation this elderly woman who is failed rhythm control approach, overall tolerating well status post AV estiven ablation and permanent pacemaker placement. Rate is adequately controlled. Unfortunately she recently had a lower GI bleed related to diverticulosis. Has been restarted on Eliquis therapy as per GI recommendations. I would strongly recommended to be started on iron therapy. I have advised her to stop turmeric and vitamin-D supplementation. If she is recurrent bleeding episodes, can consider Watchman device placement. This was discussed with her. Continue metoprolol and Cardizem therapy for blood pressure control mostly. Follow-up CBC in near future as planned. Semi annual renal function test should be pursued. (2) (HFpEF) heart failure with preserved ejection fraction: Code(s): I50.30 - Unspecified diastolic (congestive) heart failure Category: Medical Plan: Heart failure preserved ejection fraction, clinically appears to be euvolemic and well compensated. At this point time advised to continue current diuretic dose. Continue aggressive blood pressure control. Correct anemia. Continue daily weight monitoring avoidance of salt loading. Continue rate control approach with AFib. Signs and symptoms of heart failure were discussed. Additional diuretics as need be. (3) Cardiac pacemaker in situ: Comment: Medtronic, single-chamber device for ventricular support post AV estiven ablation Code(s): Z95.0 - Presence of cardiac pacemaker Category: Medical Plan: Cardiac pacemaker in-situ, working well. Reprogrammed for adequate functioning. Will follow remotely as well as followed by clinic. Follow up in the clinic in 3 months time, sooner p.r.n.. Thank you for allowing me to partake in her care Medications: Resumed apixaban (Eliquis) 5 mg PO BID 60 tabs 5RF Coding Level of Care Code Est Pt Level 4 (10925) Diagnoses Permanent atrial fibrillation I48.21 (HFpEF) heart failure with preserved ejection fraction I50.30 Cardiac pacemaker in situ Z95.0 CPT Codes Cardiac Device Check - Cardiac Device 1: [id number] Cardiac Device Check, leadless/single lead pacemaker ([id number])
[2024-02-02 12:47] VITALS: BP 130/80; PULSE 66; BMI 32.4
== END 2024-02-02 13:26 | disposition home or self-care (01) ==
PROVIDERS: PCP Family Medicine; Visit Provider Internal Medicine Cardiovascular Disease
DX: I48.21 Permanent atrial fibrillation (principal); I50.30 Unspecified diastolic (congestive) heart failure; Z95.0 Presence of cardiac pacemaker
CPT/HCPCS: 93279; 99214

== ENCOUNTER → 2024-02-02 12:37 | Outpatient (BNVA) | payer MEDICARE, SELFPAY | PROVIDERS: PCP Family Medicine; Visit Provider Internal Medicine Cardiovascular Disease | DX: I48.21 Permanent atrial fibrillation (principal); I50.30 Unspecified diastolic (congestive) heart failure; Z95.0 Presence of cardiac pacemaker | CPT/HCPCS: 99212 ==

== ENCOUNTER 2024-02-05 14:17 | Outpatient (REF) | payer MEDICARE, SELFPAY ==
[2024-02-05 14:46] LABS: MANUAL DIFF FLAG NO
[2024-02-05 15:22] LABS: Basophils Absolute Auto 0.1 X10*3/uL (0.0-0.2); Basophils Percent Auto 0.6 % (0-2); Eosinophils Absolute Auto 0.2 X10*3/uL (0.0-0.4); Eosinophils Percent Auto 2.4 % (0-4); Hematocrit 35.5 % (37.0-47.0); Imm Gran Abs Auto 0.04 X10*3/uL (0.00-0.03); Imm Gran Pct Auto 0.5 % (0.0-0.4); Lymphocytes Absolute Auto 1.8 X10*3/uL (1.2-4.9); Lymphocytes Percent Auto 21.7 % (20-40); Mean Corpuscular HGB Conc 33.8 g/dl (31.0-35.0); Mean Corpuscular Hemoglobin 33.7 pg (27.0-33.0); Mean Corpuscular Volume 99.7 fL (80.0-98.0); Mean Platelet Volume 9.5 fL (9.4-12.3); Monocytes Percent Auto 11.6 % (2-11); Neutrophils Absolute Auto 5.3 x10*3/uL (2.0-8.3); Neutrophils Percent Auto 63.2 % (45-73); Platelet Count 269 X10*3/uL (160-400); Red Blood Count 3.56 X10*6/uL (4.20-5.50); Red Cell Distribution Width 14.6 % (11.0-16.0); White Blood Count 8.4 X10*3/uL (4.8-10.8)
[2024-02-05 15:35] LABS: Glucose Fasting 82 mg/dL (60-99); Iron 156 mcg/dL (30-160); Percent Iron Saturation 48 % (15-50); Total Iron Binding Capacity 326 mcg/dL (228-428); Unsaturated Iron Binding 170 ug/dL
== END 2024-02-05 14:18 | disposition home or self-care (01) ==
LOC: HO.LAB 14:17
PROVIDERS: PCP Family Medicine; Visit Provider Family Medicine
DX: R31.9 Hematuria, unspecified (principal); R73.9 Hyperglycemia, unspecified
CPT/HCPCS: 36415; 82947; 83540; 85025

== ENCOUNTER 2024-02-23 13:52 | Outpatient (REF) | payer MEDICARE, SELFPAY ==
[2024-02-23 14:13] LABS: MANUAL DIFF FLAG NO
[2024-02-23 14:50] LABS: Basophils Percent Auto 0.6 % (0-2); Eosinophils Absolute Auto 0.2 X10*3/uL (0.0-0.4); Eosinophils Percent Auto 3.5 % (0-4); Hematocrit 40.4 % (37.0-47.0); Hemoglobin 13.6 g/dl (12.0-16.0); Imm Gran Abs Auto 0.03 X10*3/uL (0.00-0.03); Imm Gran Pct Auto 0.5 % (0.0-0.4); Lymphocytes Absolute Auto 1.4 X10*3/uL (1.2-4.9); Lymphocytes Percent Auto 22.7 % (20-40); Mean Corpuscular HGB Conc 33.7 g/dl (31.0-35.0); Mean Corpuscular Volume 98.1 fL (80.0-98.0); Mean Platelet Volume 9.4 fL (9.4-12.3); Monocytes Absolute Auto 0.8 X10*3/uL (0.1-1.2); Monocytes Percent Auto 12.7 % (2-11); Neutrophils Absolute Auto 3.7 x10*3/uL (2.0-8.3); Platelet Count 253 X10*3/uL (160-400); Red Blood Count 4.12 X10*6/uL (4.20-5.50); Red Cell Distribution Width 13.6 % (11.0-16.0); White Blood Count 6.2 X10*3/uL (4.8-10.8)
[2024-02-23 15:20] LABS: Alanine Aminotransferase 16 U/L (0-31); Albumin Level 4.1 g/dL (3.5-5.0); Alkaline Phosphatase 93 U/L (39-117); Anion Gap 14 (12-20); Aspartate Amino Transferase 18 U/L (5-31); Bilirubin Total 1.2 mg/dL (0.0-1.0); Blood Urea Nitrogen 23 mg/dL (9-16); C Reactive Protein 0.21 mg/dL (< or = 0.50); Calcium 9.5 mg/dL (8.4-10.2); Carbon Dioxide 23 mmol/L (22-29); Chloride 111 mmol/L (96-108); Estimated Glomerular Filt Rate > 60; Glucose Random 137 mg/dL (60-115); Iron 119 mcg/dL (30-160); Magnesium 2.2 mg/dL (1.6-2.6); Percent Iron Saturation 41 % (15-50); Potassium 3.6 mmol/L (3.3-5.1); Sodium 144 mmol/L (135-145); Total Iron Binding Capacity 292 mcg/dL (228-428); Total Protein 6.8 g/dL (6.5-8.0); Unsaturated Iron Binding 173 ug/dL
[2024-02-23 15:32] LABS: Erythrocyte Sedimentation Rate 10 MM/HR (0-20)
[2024-02-23 15:39] LABS: Ferritin 40 ng/mL (10-250); Free T4 (Free Thyroxine) 1.07 ng/dL (0.71-1.85)
== END 2024-02-23 13:53 | disposition home or self-care (01) ==
LOC: HO.LAB 13:52
PROVIDERS: PCP Family Medicine; Visit Provider Family Medicine
DX: R53.1 Weakness (principal); D50.9 Iron deficiency anemia, unspecified; R06.02 Shortness of breath; R53.83 Other fatigue
CPT/HCPCS: 36415; 80053; 82728; 83540; 83735; 84439; 85025; 85652; 86140

== ENCOUNTER → 2024-03-09 12:49 | Outpatient (REF) | payer MEDICARE, SELFPAY ==
--- NOTE | 2024-03-09 12:52 | CA_ITS ---
Transthoracic Echocardiogram Patient (Last, First, Middle): Chiquita Meeks P Gender: Female Date of : 1945 Age: 78 Procedure Date: 03/09/2024 Procedure Type: Transthoracic Echocardiogram Location: OP Height: 165.1 cm Weight: 81.65 kg BSA: 1.89 m2 Heart Rate: bpm BP: 117 / 85 mmHg Production Control Analyst: RHIANNA Referring MD: Yair Huff MD Sterile Tech: Franco Brennan MD Symptoms: SHORTNESS OF BREATH Study Quality: Adequate ECG Rhythm: Ventriculary paced rhythm Conclusions: - 1. Normal LV ejection fraction of 60-65% 2. Mildly dilated left atrium 3. Normal cardiac valvular Dopplers 4. Upper limits of normal RV systolic pressure 5. No gross pericardial effusion Findings Left Ventricle Normal left ventricular size, thickness, and systolic function. The visually estimated ejection fraction is between 60-65%. Spectral Doppler is indicative of a restrictive filling pattern. There is moderate septal asymmetric hypertrophy. Right Ventricle Normal right ventricular cavity size. There is normal right ventricular systolic function. There is a pacemaker wire seen in the right ventricle. Atria The left atrium is mildly dilated. Interatrial shunt cannot be excluded. The right atrium is mildly dilated. Aortic Valve There is mild calcification of the aortic valve. There is no aortic valve stenosis. There is no aortic valve regurgitation. Mitral Valve There is mild anterior and posterior mitral leaflet thickening. There is mild mitral annular calcification. There is trace mitral valve regurgitation. There is no mitral valve stenosis. Pulmonic Valve The pulmonic valve was not well visualized. Tricuspid Valve Likely normal tricuspid valve structure and function. There is mild tricuspid valve regurgitation. Normal right atrial pressure. There is no evidence of pulmonary hypertension. Great Vessels All visible segments of the aorta are normal in size. The pulmonary artery was not well visualized. Venous The inferior vena cava is normal in size and collapses greater than 50% with inspiration. Pericardium/Pleural There is no evidence of pericardial effusion. Prior Study Comparison No significant change compared to prior study dated: 09/10/2022. Measurements 2D Linear Measurements IVSd: 1.67 0.6-0.9/0.6-1.0 cm LVIDd: 4.43 3.9-5.3/4.2-5.9 cm LVIDd Index: 2.34 2.4-3.2/2.2-3.1 cm/m2 LVIDs: 2.35 2.0-3.6 cm LVPWd: 1.10 0.7-1.1 cm LA Diam: 4.20 2.7-3.8/3.0-4.0 cm LAIDs Index: 2.22 1.5-2.3 cm/m2 LV Mass: 297.76 67-162/88-224 g LV Mass Index: 157.55 43-95/49-115 g/m2 LVOT Diam: 2.00 3.0+(-)1.3 cm 2D Systolic Function EF 4C: 68.00 >55% EF 2C: 55.80 >55% EF BiP: 62.90 >55% Mitral Valve MV Pk E: 0.89 MV Decel Time: 205.00 E'Lateral: 8.91 E'Medial: 5.77 E/E' Med: 15.40 E/E' Lat: 10.00 PHT: 60.00 MVA PHT: 3.67 Decel [place]: 4.44 Aortic Valve AoV Pk Toney: 1.17 AoV Mn Toney: 0.76 AoV VTI: 0.23 AoV Pk Grad: 5.00 Aov Mn Grad: 3.00 BRENDAN Cont.VTI: 2.22 LVOT LVOT Pk Toney: 0.78 LVOT Mn Toney: 0.51 LVOT VTI: 0.16 LVOT Pk Grad: 2.00 LVOT Mn Grad: 1.00 LVOT Diam: 2.00 LVOT Area: 3.14 Diastolic Function MV Pk E: 0.89 E'Medial: 5.77 E/E' Med: 15.40 E' Laterial: 8.91 E/E' Lat: 10.00 Right Ventricle TAPSE (mm): 18.10 TVS' Toney: 11.50 Tricuspid Valve TR Pk Toney: 2.86 TR Pk Grad: 33.00 RA Press: 3.00 RVSP: 36.00 Great Vessels Aorta Sinus of Valsalva: 3.46 2.0-3.[address] [place]: 2.34 1.7-3.4 cm Ao Asc: 3.30 2.1-3.4 cm Updated in Other Vendor System with Status of Final Franco Brennan MD electronically signed on 03/09/2024 2:43:25 PM with status of Final
== END ==
LOC: HO.CARD 12:49
PROVIDERS: PCP Family Medicine; Visit Provider Family Medicine
DX: R06.02 Shortness of breath (principal); I48.20 Chronic atrial fibrillation, unspecified
CPT/HCPCS: 93306

== ENCOUNTER → 2024-03-09 12:52 | Outpatient (BNV) | payer MEDICARE, SELFPAY | PROVIDERS: PCP Family Medicine; Visit Provider Internal Medicine Cardiovascular Disease | DX: I35.8 Other nonrheumatic aortic valve disorders (principal); I34.81 Nonrheumatic mitral (valve) annulus calcification; I36.1 Nonrheumatic tricuspid (valve) insufficiency; I42.2 Other hypertrophic cardiomyopathy | CPT/HCPCS: 93306 ==

== ENCOUNTER 2024-05-03 14:59 | Outpatient (AMB) | payer MEDICARE, SELFPAY ==
[2024-05-03 15:10] VITALS: BP 130/76; PULSE 67; BMI 32.0
--- NOTE | 2024-05-03 15:10 | A.OFFVIS_ITS ---
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 Required: No Accompanied by: Self / Same As Patient Allergies aspirin [ASPIRIN] Allergy (Unknown, Verified 01/20/24 07:36) RASH Sulfa (Sulfonamide Antibiotics) [SULFA (SULFONAMIDE ANTIBIOTICS)] Allergy (Unknown, Verified 01/20/24 07:36) RASH flecainide Adverse Reaction (Intermediate, Verified 01/20/24 07:36) Dizziness amiodarone Adverse Reaction (Mild, Verified 01/20/24 07:36) Dizziness Digitalis Glycosides Adverse Reaction (Verified 01/20/24 07:36) Confusion adhesives Adverse Reaction (Uncoded 01/20/24 07:36) Unknown Medication List - Last Reconciled 05/03/24 by Franco Brennan MD apixaban (Eliquis) 5 mg PO BID ascorbic acid (vitamin C) 1,000 mg PO DAILY atorvastatin 40 mg PO DAILY carvedilol 25 mg PO BID cholecalciferol (vitamin D3) (Vitamin D3) 25 mcg PO DAILY coenzyme Q10 100 mg PO DAILY diltiazem HCl CD 120 mg PO DAILY empagliflozin (Jardiance) 10 mg PO DAILY 90 days fexofenadine (Shea Allergy) 180 mg PO DAILY furosemide 40 mg PO DAILY gabapentin 600 mg PO BEDTIME ipratropium-albuterol 0.5 mg-3 mg(2.5 mg base)/3 mL 3 mL inhalation Q4-6H PRN magnesium 250 mg PO BEDTIME montelukast 10 mg PO BEDTIME multivitamin 1 tab PO DAILY omeprazole 40 mg PO BEDTIME turmeric 400 mg PO DAILY@1200 vitamin E (dl, acetate) 180 mg PO DAILY HPI Comments Details: Chiquita comes for follow-up. She has no new cardiac symptoms. She continues to exertional shortness of breath and limitation with exertional fatigue. Otherwise denies any symptoms of orthopnea, PND, leg edema. No prolonged palpitation irregular heartbeat. No bleeding issues or neurologic events. Takes all her medications regularly. No lightheadedness, syncope. She is having back issues and is waiting to have MRI done. Denies any exertional chest pain. [facility] Medical History (HFpEF) heart failure with preserved ejection fraction Cardiac pacemaker in situ Permanent atrial fibrillation Paroxysmal atrial fibrillation Preoperative cardiovascular examination NSTEMI (non-ST elevated myocardial infarction) Pulmonary hypertension Chronic heart failure with preserved ejection fraction (HFpEF) Chronic heart failure with preserved ejection fraction (HFpEF) Cardiomyopathy Pulmonary hypertension Diastolic dysfunction History of cardiomyopathy HTN (hypertension) History of cardioversion Surgical History S/P cardiac catheterization Hx of total hip arthroplasty Hx of cardiac cath Hx of hand surgery History of back surgery Family History Father Cancer Mother Stroke Brother Atrial fibrillation Sister Cardiovascular disease Atrial fibrillation Social History Household Members: None Housing: House Do you presently have visiting nurse or other home services: No Unable to assess alcohol history related to: Unknown Alcohol intake: former Comment: pt refusing bed alarm Patient Tobacco Use Status: Never used Tobacco Second Hand Smoke Exposure: No Advance Directives Date on File: 12/18/22 service: No Current occupational status: retired Review of Systems Const Denies chills, Denies fatigue, Denies fever(s), Denies frequent falls, Denies weakness, Denies weight gain and Denies weight loss ENT Denies dizziness Card Denies chest pain, Denies leg edema, Denies lightheadedness, Denies palpitations, Denies dyspnea and Denies dyspnea on exertion Resp Denies cough, Denies dyspnea and Denies dyspnea on exertion GI Denies hematochezia Musc Denies abnormal gait, Denies muscle weakness, Denies numbness, Denies radiating pain into limb and Denies tingling Neuro Denies abnormal gait, Denies dizziness, Denies frequent falls, Denies numbness, Denies tingling and Denies weakness Endo Denies fatigue and Denies palpitations Physical Exam Vital Signs: Last Vital Signs Pulse 67 05/03/24 15:10 BP 130/76 05/03/24 15:10 BMI result Body Mass Index 32.0 Const General: cooperative, comfortable, no acute distress, alert and awake Nutritional Appearance: overweight Orientation/consciousness: patient oriented x3 Limitations: other limitations (In a stretcher) Neck Neck: Yes trachea midline, Yes supple and Yes no JVD Chest Chest palpation & inspection: abnormal inspection of the chest kyphotic and scoliotic Resp Effort & Inspection: normal respiratory effort Auscultation: clear to auscultation bilaterally and diminished lung sounds Cardio Jugular venous distension: no JVD Palpation: normal PMI Rate: regular rate Rhythm: regular rhythm Heart sounds: S1 normal heart sound present and S2 normal heart sound present GI Auscultation: normal bowel sounds Skin General skin exam: no rashes or lesions noted Neuro General: patient oriented x3 and no focal motor deficits Extrem General: Yes no clubbing, cyanosis or edema Psych Appearance: grossly normal Office Procedures Cardiac Device Check Cardiac Device Check Details: Single-chamber Medtronic pacemaker in place. Programmed in VVIR at 60 beats per minute. Ventricular pacing 100% of the time. Ventricular pacing thresholds are excellent and reprogrammed to enhance battery life. Ventricular battery life is excellent. Pacing lead impedance is stable. 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 However clinically appears to be euvolemic and well compensated current diuretic dose. Doing extremely well from that perspective. Continue current diuretic regimen. Daily weight monitoring avoidance of salt loading was discussed advised to continue Jardiance therapy. Additional diuretics as need be. She understands and agrees. Advised to maintain activity level as tolerated. (2) Cardiac pacemaker in situ: Comment: Medtronic, single-chamber device for ventricular support post AV estiven ablation Code(s): Z95.0 - Presence of cardiac pacemaker Category: Medical Plan: Cardiac pacemaker in-situ for ventricular support after AV estiven ablation. Pacemaker is working well. Will follow-up remotely in 3 months time. (3) Permanent atrial fibrillation: Comment: Status post AV estiven ablation Code(s): I48.21 - Permanent atrial fibrillation Category: Medical Plan: Permanent atrial fibrillation has failed multiple attempts at rhythm control approach. Was considered not a candidate for repeat ablation therapy. Currently status post AV estiven ablation due to persistent tachycardic heart rate response. Status post rate control with Cardizem as well as carvedilol. Continue full oral anticoagulation, currently on Eliquis 5 mg b.i.d.. Semi annual renal function test should be pursued. Will follow up in the clinic in 6 months time, sooner p.r.n.. Thank you for allowing me to partake in her care Coding Level of Care Code Est Pt Level 4 (69981) Diagnoses (HFpEF) heart failure with preserved ejection fraction I50.30 Cardiac pacemaker in situ Z95.0 Permanent atrial fibrillation I48.21 CPT Codes Cardiac Device Check - Cardiac Device 1: 96138-FH Cardiac Device Check, leadless/single lead pacemaker ([id number])
== END 2024-05-03 15:29 | disposition home or self-care (01) ==
PROVIDERS: PCP Family Medicine; Visit Provider Internal Medicine Cardiovascular Disease
DX: I50.30 Unspecified diastolic (congestive) heart failure (principal); Z95.0 Presence of cardiac pacemaker; I48.21 Permanent atrial fibrillation
CPT/HCPCS: 93279; 99214

== ENCOUNTER → 2024-05-03 14:59 | Outpatient (BNVA) | payer MEDICARE, SELFPAY | PROVIDERS: PCP Family Medicine; Visit Provider Internal Medicine Cardiovascular Disease | DX: Z45.018 Encounter for adjustment and management of other part of cardiac pacemaker (principal); I50.30 Unspecified diastolic (congestive) heart failure; I48.21 Permanent atrial fibrillation | CPT/HCPCS: 99212 ==

== ENCOUNTER 2024-05-19 12:22 | Emergency (ER) | payer MEDICARE, SELFPAY ==
--- NOTE | ~2024-05-19 | US_ITS ---
EXAMINATION: US ABDOMEN LIMITED CLINICAL INFORMATION: Pain. Vomiting.. COMPARISON: Right upper quadrant ultrasound July 15, 2023. CT abdomen and pelvis January 20, 2024 TECHNIQUE: Real-time imaging of the gallbladder and bile duct only.. FINDINGS: GALLBLADDER: Gallstones present within the gallbladder. No gallbladder wall thickening or pericholecystic fluid. Negative ultrasound Ordoñez's sign. COMMON BILE DUCT: Normal in caliber measuring 0.4 cm in diameter. FREE FLUID: None. US/US abdomen limited IMPRESSION: 1. Cholelithiasis. No acute change of gallbladder wall. Negative ultrasound Ordoñez's sign. 2. No biliary dilatation. Electronically signed by: Landen Gómez MD 05/19/2024 07:52 PM EDT
--- NOTE | 2024-05-19 12:25 | ED.GENADULT ---
HPI - General Adult General Chief complaint: Nausea/Vomiting/Diarrhea Stated complaint: Sent by Dr dry heaving Time Seen by Provider: 05/19/24 16:43 Source: patient Limitations: no limitations History of Present Illness ED Provider: Brooke Fernandes PA-C HPI narrative: 78-year-old female with a history of diastolic heart failure, AFib now with pacer in place, hypertension presents with nausea and dry heaving x6 days. Patient states she has been unable to tolerate oral intake. Patient has tried to eat and drink, when she does, she develops dry heaving. She denies abdominal pain, fever, diarrhea. Denies recent cough or cold symptoms. Denies chest pain or shortness of breath. Patient saw her primary care provider, they told her to come to the emergency department. Related Data Home Medications ?Medication ?Instructions ?Recorded ?Confirmed montelukast 10 mg tablet 10 mg PO BEDTIME 05/16/20 05/03/24 fexofenadine 180 mg tablet 180 mg PO DAILY 06/21/21 05/03/24 (Shea Allergy) coenzyme Q10 100 mg tablet 100 mg PO DAILY 07/28/21 05/03/24 magnesium 250 mg tablet 250 mg PO BEDTIME 07/28/21 05/03/24 multivitamin 1 tab PO DAILY 07/28/21 05/03/24 vitamin E (dl, acetate) 180 mg 180 mg PO DAILY 07/28/22 05/03/24 (400 unit) capsule ascorbic acid (vitamin C) 500 mg 1,000 mg PO DAILY 09/26/22 05/03/24 tablet furosemide 40 mg tablet 40 mg PO DAILY 09/26/22 05/03/24 omeprazole 40 mg capsule,delayed 40 mg PO BEDTIME 09/26/22 05/03/24 release turmeric 400 mg capsule 400 mg PO DAILY@1200 11/03/22 05/03/24 gabapentin 300 mg capsule 600 mg PO BEDTIME 04/06/23 05/03/24 cholecalciferol (vitamin D3) 25 25 mcg PO DAILY 09/03/23 05/03/24 mcg (1,000 unit) capsule (Vitamin D3) diltiazem HCl 120 mg 120 mg PO DAILY 05/03/24 05/03/24 capsule,extended release 24 hr Previous Rx's ?Medication ?Instructions ?Recorded ipratropium 0.5 mg-albuterol 3 mg 3 ml inhalation Q4-6H PRN for 12/02/22 (2.5 mg base)/3 mL nebulization wheezing #180 mL soln empagliflozin 10 mg tablet 10 mg PO DAILY 90 days #90 tabs 08/24/23 (Jardiance) apixaban 5 mg tablet (Eliquis) 5 mg PO BID #60 tabs 12/16/23 carvedilol 25 mg tablet 25 mg PO BID #60 tabs 04/12/24 atorvastatin 40 mg tablet 40 mg PO DAILY #90 tabs 05/09/24 Allergies Allergy/AdvReac Type Severity Reaction Status Date / Time aspirin [ASPIRIN] Allergy Unknown RASH Verified 05/19/24 12:28 Sulfa (Sulfonamide Allergy Unknown RASH Verified 05/19/24 12:28 Antibiotics) [SULFA (SULFONAMIDE ANTIBIOTICS)] flecainide AdvReac Intermediate Dizziness Verified 05/19/24 12:28 amiodarone AdvReac Mild Dizziness Verified 05/19/24 12:28 Digitalis Glycosides AdvReac Confusion Verified 05/19/24 12:28 adhesives AdvReac Unknown Uncoded 05/19/24 12:28 Review of Systems Review of Systems: Yes all other systems are reviewed and are negative Constitutional: Constitutional: Denies fever(s) and Reports poor appetite Cardiovascular: Cardiovascular: Denies chest pain and Denies dyspnea Respiratory: Respiratory: Denies cough and Denies dyspnea Gastrointestinal: Gastrointestinal: Denies abdominal pain, Reports nausea and Denies vomiting PMF Past Medical History Attestation statement: The following information was validated with the patient. Medical History (HFpEF) heart failure with preserved ejection fraction Cardiac pacemaker in situ Permanent atrial fibrillation Paroxysmal atrial fibrillation Preoperative cardiovascular examination NSTEMI (non-ST elevated myocardial infarction) Pulmonary hypertension Chronic heart failure with preserved ejection fraction (HFpEF) Chronic heart failure with preserved ejection fraction (HFpEF) Cardiomyopathy Pulmonary hypertension Diastolic dysfunction History of cardiomyopathy HTN (hypertension) History of cardioversion Surgical History S/P cardiac catheterization Hx of total hip arthroplasty Hx of cardiac cath Hx of hand surgery History of back surgery Family History Family History Father Cancer Mother Stroke Brother Atrial fibrillation Sister Cardiovascular disease Atrial fibrillation Social History Social History Household Members: None Housing: House Do you presently have visiting nurse or other home services: No Unable to assess alcohol history related to: Unknown Alcohol intake: former Comment: pt refusing bed alarm Patient Tobacco Use Status: Never used Tobacco Second Hand Smoke Exposure: No Advance Directives: Yes Advance Directives on File: Yes Advance Directives Date on File: 12/18/22 service: No Current occupational status: retired Physical Exam ED Vital Signs: Vital Signs - 24 hr 05/19/24 12:26 05/19/24 20:17 Temperature 96.7 F L 96.7 F L Pulse Rate 83 83 Respiratory Rate 20 20 Blood Pressure 185/99 H 185/99 H Pulse Oximetry 96 96 Oxygen Delivery Method Room Air Room Air BMI result Body Mass Index 30.0 Const Other: Alert, overall well in appearance Orientation/consciousness: patient oriented x3 Resp Effort & Inspection: normal respiratory effort Cardio Other: Normal peripheral perfusion GI Other: Abdomen is soft, nondistended nontender Skin Other: Warm dry no rash Neuro General: patient oriented x3, no focal motor deficits and CN's II-XI intact bilaterally Psych Other: Cooperative initially, then became hostile and belligerent Course Course Course Narrative: This is a rapid medical exam performed by Angelita Suarez NP: Additional HPI, ROS, PE not included below will be deferred to primary provider. Patient is a 78-year-old female presenting to the ED with complaint of dry heaving since Thursday. Was feeling a little better yesterday, then symptoms began again this morning. Able to tolerate some fluids, yesterday had toast and jell-o. Referred by PCP. Denies any abdominal pain or diarrhea. Plan: labs, UA, viral serology Reevaluation(s) Reevaluation #1: The patient refused delta troponin, she refused IV fluid, she states ?they keep sticking me and they can not get it?. I relayed to the patient that I can place an ultrasound-guided IV, she declines. I explained to the patient the rationale behind obtaining a delta troponin, in the fact that her blood pressure is so elevated, that we would like the treat that as well. She still declines. She is adamant about going home. The patient is complaining because she is still waiting for the ultrasound read, I explained to her that we have no control over the radiology department, that the radiologist has yet to read the study, the other patients or waiting as well. She still wants to leave. I explained to her that I am going to have her sign out against medical advice. She is happy to sign the paperwork. Time: 19:40 Reevaluation #2: Calling the patient to let her know that she has gallstones, and that this could be the cause of her ongoing nausea and dry heaves. I will leave a message on her cell phone that is documented in her chart Time: 20:56 Medications Administered Discontinued Medications Generic Name Dose Route Start Last Admin Trade Name Frelloyd PRN Reason Stop Dose Admin Ondansetron HCl 8 mg 05/19/24 17:32 05/19/24 18:34 Ondansetron Odt 8 Mg Tab.Rapdis TRANSLINGU 05/19/24 17:33 8 mg ONCE ONE Administration Medical Decision Making Medical Decision Making [facility] Narrative: 78-year-old female with a history of diastolic heart failure, AFib now with pacer in place, hypertension presents with nausea and dry heaving x6 days. Patient states she has been unable to tolerate oral intake. Patient has tried to eat and drink, when she does, she develops dry heaving. She denies abdominal pain, fever, diarrhea. Denies recent cough or cold symptoms. Denies chest pain or shortness of breath. Patient saw her primary care provider, they told her to come to the emergency department. Problem: Age, arrhythmia, hypertension History: Per patient I have considered the following differential diagnoses: Atypical presentation for ACS, biliary colic, cholecystitis, gastritis, pancreatitis, viral syndrome Plan: Screening labs were already obtained and are completed, they were actually unremarkable, she is not clinically dehydrated. Patient states she attempts to eat and drink, it elicits nausea and dry heaving. I am concerned for potential biliary colic. I do not think this is cholecystitis at this time as her abdominal exam is benign. We will obtain an ultrasound of the right upper quadrant. To note, the total bilirubin is elevated, I will fractionate. We will be giving antiemetic and IV fluid. Atypical presentation for ACS was considered, she is hypertensive here in the emergency department, but she also states she has not taken her blood pressure medication over the past 2 days because of her nausea, a troponin was obtained, it is indeterminate, we will obtain a delta trop. This could also be underlying viral syndrome, our viral panel is negative. I have independently reviewed the following tests: Labs: No leukocytosis, not anemic, no electrolyte abnormality, T bili 2.2, we will fractionate, 1st troponin 11.4, viral panel negative EKG: AFib, rate of 66, no ischemic changes V paced rhythm noted QTC 465 Ultrasound right upper quadrant:ain. Vomiting.. COMPARISON: Right upper quadrant ultrasound July 15, 2023. CT abdomen and pelvis January 20, 2024 TECHNIQUE: Real-time imaging of the gallbladder and bile duct only.. FINDINGS: GALLBLADDER: Gallstones present within the gallbladder. No gallbladder wall thickening or pericholecystic fluid. Negative ultrasound Ordoñez's sign. COMMON BILE DUCT: Normal in caliber measuring 0.4 cm in diameter. FREE FLUID: None. US/US abdomen limited IMPRESSION: 1. Cholelithiasis. No acute change of gallbladder wall. Negative ultrasound Ordoñez's sign. 2. No biliary dilatation. Electronically signed by: Landen Gómez MD 05/19/2024 07:52 PM EDT RP Lab Data 05/19/24 13:15 05/19/24 13:15 Labs: Lab Results 05/19/24 Range/Units 13:15 WBC 6.0 (4.8-10.8) X10*3/uL RBC 5.29 D (4.20-5.50) X10*6/uL Hgb 16.8 H D (12.0-16.0) g/dl Hct 47.5 H (37.0-47.0) % MCV 89.8 (80.0-98.0) fL MCH 31.8 (27.0-33.0) pg MCHC 35.4 H (31.0-35.0) g/dl RDW 12.2 (11.0-16.0) % Plt Count 190 (160-400) X10*3/uL MPV 9.2 L (9.4-12.3) fL Immature Gran % (Auto) 0.2 (0.0-0.4) % Neut % (Auto) 69.0 (45-73) % Lymph % (Auto) 18.1 L (20-40) % Woodward % (Auto) 11.3 H (2-11) % Eos % (Auto) 0.7 (0-4) % Baso % (Auto) 0.7 (0-2) % Lymph # (Auto) 1.1 L (1.2-4.9) X10*3/uL Woodward # (Auto) 0.7 (0.1-1.2) X10*3/uL Eos # (Auto) 0.0 (0.0-0.4) X10*3/uL Baso # (Auto) 0.0 (0.0-0.2) X10*3/uL Abs Immat Gran (auto) 0.01 (0.00-0.03) X10*3/uL Absolute Neuts (auto) 4.2 (2.0-8.3) x10*3/uL Absolute Nucleated RBC 0.000 (0.0-0.012) X10*3/uL Nucleated RBC % (auto) 0.0 (0.0-0.2) /100WBC PT 15.9 H (10.9-12.4) SEC INR 1.4 H (0.9-1.1) Sodium 142 (135-145) mmol/L Potassium 3.5 (3.3-5.1) mmol/L Chloride 110 H (96-108) mmol/L Carbon Dioxide 20 L (22-29) mmol/L Anion Gap 16 (12-20) BUN 23 H (9-16) mg/dL Creatinine 0.82 (0.5-1.4) mg/dL Estim Creat Clear Calc 58.7 Estimated GFR > 60 Random Glucose 111 (60-115) mg/dL Calcium 9.9 (8.4-10.2) mg/dL Magnesium 2.1 (1.6-2.6) mg/dL Total Bilirubin 2.2 H (0.0-1.0) mg/dL Direct Bilirubin 0.6 H (0.0-0.5) mg/dL AST 23 (5-31) U/L ALT 18 (0-31) U/L Alkaline Phosphatase 92 (39-117) U/L Troponin I High Sens 11.4 (<3.5-17.0) ng/L Total Protein 7.4 (6.5-8.0) g/dL Albumin 4.2 (3.5-5.0) g/dL Amylase 29 (28-100) U/L Lipase 19 (8-78) U/L Influenza Type A (PCR) NEGATIVE (Negative) Influenza Type B (PCR) NEGATIVE (Negative) RSV RNA Qual (PCR) NEGATIVE (Negative) SARS-CoV-2 RNA (RT-PCR) NEGATIVE (Negative) Discharge Plan Discharge Clinical Impression: Vomiting, Hypertensive urgency Patient Disposition: Left Against Medical Advice Instructions: Hypertensive Crisis (ED) Additional Instructions: You chose to leave against medical advice. There is an ultrasound of your gallbladder pending. We wanted to repeat a cardiac enzyme, you declined. Your blood pressure is currently extremely elevated, we wanted to treat that, you declined. Prescriptions: No Action ipratropium-albuterol 0.5 mg-3 mg(2.5 mg base)/3 mL solution for nebulization 3 ml inhalation Q4-6H PRN (Reason: for wheezing) Qty: 180 0RF Jardiance 10 mg tablet 10 mg PO DAILY 90 Days Qty: 90 3RF Eliquis 5 mg tablet 5 mg PO BID Qty: 60 5RF carvedilol 25 mg tablet 25 mg PO BID Qty: 60 5RF atorvastatin 40 mg tablet 40 mg PO DAILY Qty: 90 3RF coenzyme Q10 100 mg Tablet 100 mg PO DAILY multivitamin Tablet 1 tab PO DAILY magnesium 250 mg Tablet 250 mg PO BEDTIME vitamin E (dl, acetate) 180 mg (400 unit) Capsule 180 mg PO DAILY ascorbic acid (vitamin C) 500 mg Tablet 1,000 mg PO DAILY omeprazole 40 mg Capsule,Delayed Release(Dr/Ec) 40 mg PO BEDTIME furosemide 40 mg Tablet 40 mg PO DAILY cholecalciferol (vitamin D3) [Vitamin D3] 25 mcg (1,000 unit) Capsule 25 mcg PO DAILY montelukast 10 mg tablet 10 mg PO BEDTIME gabapentin 300 mg capsule 600 mg PO BEDTIME fexofenadine [Shea Allergy] 180 mg tablet 180 mg PO DAILY turmeric 400 mg capsule 400 mg PO DAILY@1200 diltiazem HCl 120 mg capsule,extended release 24hr 120 mg PO DAILY Stand Alone Forms: Against Medical Advice Interventions: ED Discharge Assessment Last Done: 05/19/24 20:17 Discharge Date/Time: 05/19/24 20:18 Print Language: Nauruan
[2024-05-19 12:26] VITALS: BP 185/99; PULSE 83; RESP 20; TEMP 35.9; O2SAT 96
--- NOTE | 2024-05-19 12:28 | ECG_ITS ---
Test Reason : chest pain/ a-fib Blood Pressure : / mmHG Vent. Rate : 066 BPM Atrial Rate : 000 BPM P-R Int : 000 ms QRS Dur : 120 ms QT Int : 444 ms P-R-T Axes : 000 010 000 degrees QTc Int : 465 ms AF with V paced rhythm Cannot rule out Anterior infarct , age undetermined Abnormal ECG When compared with ECG of 04-SEP-2023 09:00, Ventricular-paced rhythm is now Present Referred By: Diana Suarez Electronically Signed By:TAMICA SOLITARIO MD
[2024-05-19 13:19] LABS: MANUAL DIFF FLAG NO
[2024-05-19 13:21] LABS: Basophils Percent Auto 0.7 % (0-2); Eosinophils Percent Auto 0.7 % (0-4); Hematocrit 47.5 % (37.0-47.0); Hemoglobin 16.8 g/dl (12.0-16.0); Imm Gran Abs Auto 0.01 X10*3/uL (0.00-0.03); Imm Gran Pct Auto 0.2 % (0.0-0.4); Lymphocytes Absolute Auto 1.1 X10*3/uL (1.2-4.9); Lymphocytes Percent Auto 18.1 % (20-40); Mean Corpuscular HGB Conc 35.4 g/dl (31.0-35.0); Mean Corpuscular Hemoglobin 31.8 pg (27.0-33.0); Mean Corpuscular Volume 89.8 fL (80.0-98.0); Mean Platelet Volume 9.2 fL (9.4-12.3); Monocytes Absolute Auto 0.7 X10*3/uL (0.1-1.2); Monocytes Percent Auto 11.3 % (2-11); Neutrophils Absolute Auto 4.2 x10*3/uL (2.0-8.3); Platelet Count 190 X10*3/uL (160-400); Red Blood Count 5.29 X10*6/uL (4.20-5.50); Red Cell Distribution Width 12.2 % (11.0-16.0)
[2024-05-19 13:32] LABS: INTERNATIONAL NORM RATIO 1.4 (0.9-1.1); Prothrombin Time 15.9 SEC (10.9-12.4)
[2024-05-19 13:38] LABS: Amylase 29 U/L (28-100)
[2024-05-19 13:44] LABS: Alanine Aminotransferase 18 U/L (0-31); Albumin Level 4.2 g/dL (3.5-5.0); Alkaline Phosphatase 92 U/L (39-117); Anion Gap 16 (12-20); Aspartate Amino Transferase 23 U/L (5-31); Bilirubin Total 2.2 mg/dL (0.0-1.0); Blood Urea Nitrogen 23 mg/dL (9-16); Calcium 9.9 mg/dL (8.4-10.2); Carbon Dioxide 20 mmol/L (22-29); Chloride 110 mmol/L (96-108); Creatinine Clr Calc Pharmacy 58.7; Estimated Glomerular Filt Rate > 60; Glucose Random 111 mg/dL (60-115); Lipase 19 U/L (8-78); Magnesium 2.1 mg/dL (1.6-2.6); Potassium 3.5 mmol/L (3.3-5.1); Sodium 142 mmol/L (135-145); Total Protein 7.4 g/dL (6.5-8.0)
[2024-05-19 13:53] LABS: Troponin-I High Sensitivity 11.4 ng/L (<3.5-17.0)
[2024-05-19 14:04] LABS: Influenza A PCR NEGATIVE (Negative); Influenza B PCR NEGATIVE (Negative); Resp Syncy Virus RNA Qual PCR NEGATIVE (Negative); SARS COV2 PCR INHOUSE NEGATIVE (Negative)
[2024-05-19] MEDS: Ondansetron ODT 8 MG TAB.RAPDIS TRANSLINGU (18:34)
[2024-05-19 18:43] LABS: Bilirubin Direct 0.6 mg/dL (0.0-0.5)
--- NOTE | 2024-05-19 19:20 | MHC.EDTECH ---
Patient refused Labs
--- NOTE | 2024-05-19 19:23 | PC.NURSE ---
Pt. refusing lab draw. MYKEL Grant aware
--- NOTE | 2024-05-19 20:05 | PC.NURSE ---
Pt. signed AMA form with MYKEL Grant explaining the risks of leaving against medical advice.
[2024-05-19 20:17] VITALS: BP 185/99; PULSE 83; RESP 20; TEMP 35.9; O2SAT 96
== END 2024-05-19 20:18 | disposition left against medical advice (07) ==
PROVIDERS: Registered Nurse Emergency; Emergency Provider Internal Medicine; PCP Family Medicine
DX: R11.2 Nausea with vomiting, unspecified (principal); I16.0 Hypertensive urgency; I48.91 Unspecified atrial fibrillation; R07.89 Other chest pain; Z79.01 Long term (current) use of anticoagulants; Z03.818 Encounter for observation for suspected exposure to other biological agents ruled out; Z79.899 Other long term (current) drug therapy
CPT/HCPCS: 0241U; 36415; 76705; 80053; 82150; 82248; 83690; 83735; 84484; 85025; 85610; 93005; 99283; 99284

== ENCOUNTER → 2024-05-19 12:28 | Outpatient (BNV) | payer MEDICARE, SELFPAY | PROVIDERS: PCP Family Medicine; Visit Provider Internal Medicine Cardiovascular Disease | DX: R94.31 Abnormal electrocardiogram [ECG] [EKG] (principal) | CPT/HCPCS: 93010 ==

== ENCOUNTER 2024-05-24 15:03 | Outpatient (REF) | payer MEDICARE, SELFPAY ==
[2024-05-24 16:26] LABS: Alanine Aminotransferase 29 U/L (0-31); Albumin Level 4.3 g/dL (3.5-5.0); Alkaline Phosphatase 97 U/L (39-117); Aspartate Amino Transferase 27 U/L (5-31); Bilirubin Direct 0.5 mg/dL (0.0-0.5); Bilirubin Total 1.4 mg/dL (0.0-1.0); C Reactive Protein 0.23 mg/dL (< or = 0.50); Total Protein 7.4 g/dL (6.5-8.0)
[2024-05-24 16:41] LABS: Erythrocyte Sedimentation Rate 4 MM/HR (0-20); Free T4 (Free Thyroxine) 1.42 ng/dL (0.71-1.85)
== END 2024-05-24 15:04 | disposition home or self-care (01) ==
LOC: HO.LAB 15:03
PROVIDERS: PCP Family Medicine; Visit Provider Family Medicine
DX: R11.0 Nausea (principal); R63.4 Abnormal weight loss
CPT/HCPCS: 36415; 80076; 84439; 85652; 86140

== ENCOUNTER 2024-09-22 13:38 | Outpatient (REF) | payer MEDICARE, SELFPAY ==
--- OUTSIDE RECORDS SUMMARY | 2024-09-22 13:48 | XMS_ITS | Encounter Summary ---
Author Organization [facility] Address [address] [place] [address] Care Team Providers Care Project Management Advisor Name Role Phone Unavailable Primary Care Provider Unavailabl e Encounter Details Date Type Department Care Team (Late st Contact Info) Description 05/17/2024 10:14 AM EDT Hospital Encounter TH HISTORIC ENCOUNTERS EASTERN CONVERSION ONLY Jonn Michael MD [address] [place] [id number] Social History Tobacco Use Types Packs/Day Years [...]
--- OUTSIDE RECORDS SUMMARY | 2024-09-22 13:48 | XMS_ITS | Continuity of Care Document ---
Author Organization [facility], REGINA Santiagoananth 2nd floor Address [address] [place] [address] Care Team Providers Care Lathe Machinist Name Role Phone BJ THURSTON Primary Care Provider CHEYENNE FABIAN Paper Gluing Operator Assessment No assessment recorded. Plan of Treatment Reminders Order Date Submit Date Provider Last Modified By Organization Details Last Modified Time Details Appointments None recorded. Lab None recorded. Referral None recorded. Procedures None recorded. Surgeries None recorded. Imaging electromyog gila + nerve conduction study - Diagnosis: EVALUATE LUE axillary nerve/delto id function vs CERVICAL RADICULOPAT HY, please schedule with or Dr.Marinez- Gómez [email or web address] [place] [address] ([facility]), [address] [place] [address], [id number], 5 07:20:59 Medication Orders None recorded. Patient TargetsNo targets recorded. Patient InstructionsNo instructions recorded. Reason for Referral None Reported. Problems Name Problem SNOMED Code Status Onset Date Resolution Date Notes Provider Name and Address Organization Details Recorded Time No complaints 906055557 Active Status : 'A'; Not Available [facility] 4 09:28:22 Problem Notes None recorded. Medical Equipment None Reported. Allergies Allergen ID Allergen Name Allergen Category Reaction Reaction Severity Criticality Documentation Date Start Date Code Code System Note Provider Name and Address Organization Details Recorded Time 646571 aspirin medicatio n rash Not available Not available 11/23/2023 1191 RxNorm JAMIE em [place] - [facility] 4 07:44:37 16930 sulfur medicatio n rash Not available Not available 10/12/20232022 76962 RxNorm Not Available [facility] 12:45:08 Medications Name Sig Start Date Stop Date Status Note LastModified by Organization Details LastModified Time furosemide 40 mg tablet TAKE 1 TABLET BY MOUTH EVERY MORNING active Not Available Not Available No t Available atorvastati n 40 mg tablet TAKE 1 TABLET BY MOUTH DAILY active Not Available Not Available No t Available carvedilol 25 mg tablet TAKE 1 TABLET BY MOUTH TWICE DAILY active Not Available Not Available No t Available carvedilol 12.5 mg tablet TAKE 1 TABLET BY MOUTH TWICE DAILY WITH FOOD 11/29 completed Not Available Not Available Not Available ipratropium 0.5 mg-albutero l 3 mg (2.5 mg base)/3 mL nebulizatio n soln USE 3 ML VIA NEBULIZER EVERY 4 TO 6 HOURS NEEDED FOR WHEEZING 03/07 completed Not Available Not Available Not Available diltiazem CD 180 mg capsule,ext ended release 24 hr TAKE 2 CAPSULES BY MOUTH DAILY 03/07 completed Not Available Not Available Not Available meloxicam 15 mg tablet TAKE 1 TABLET BY MOUTH EVERY DAY DIRECTED active Not Available Not Available No t Available ondansetron HCl 4 mg tablet TAKE 1 TABLET BY MOUTH EVERY 8 HOURS NEEDED FOR NAUSEA active Not Available Not Available No t Available [facility] Vitamin E 1000 unit capsule Take by oral route. active Not Available Not Available No t Available digoxin 250 mcg (0.25 mg) tablet TAKE 1 TABLET BY MOUTH DAILY 11/29 completed Not Available Not Available Not Available omeprazole 40 mg capsule,del ayed release TAKE 1 CAPSULE BY MOUTH EVERY DAY NEEDED FOR HEARTBURN active Not Available Not Available No t Available spironolact one 25 mg tablet TAKE 1 TABLET BY MOUTH EVERY MORNING active Not Available Not Available No t Available ketorolac 0.5 % eye drops INSTILL 1 DROP IN BOTH EYES TWICE DAILY active Not Available Not Available No t Available prednisolon e acetate 1 % eye drops,suspe nsion INSTILL 1 DROP IN AFFECTED EYE(S) THREE TIMES DAILY FOR 5 DAYS FOLLOWING LASER 03/07 completed Not Available Not Available Not Available cephalexin 500 mg capsule TAKE 1 CAPSULE BY MOUTH TWICE DAILY FOR 10 DAYS 11/29 completed Not Available Not Available Not Available gabapentin 300 mg capsule TAKE 2 CAPSULES BY MOUTH AT BEDTIME active Not Available Not Available No t Available diltiazem CD 120 mg capsule,ext ended release 24 hr TAKE 1 CAPSULE BY MOUTH AT BEDTIME active Not Available Not Available No t Available montelukast 10 mg tablet TAKE 1 TABLET BY MOUTH EVERY DAY NEEDED active Not Available Not Available No t Available digoxin 125 mcg (0.125 mg) tablet TAKE 1 TABLET BY MOUTH DAILY 11/29 completed Not Available Not Available Not Available Promethegan 25 mg rectal suppository UNWRAP AND INSERT 1 SUPPOSITO RY RECTALLY EVERY 6 HOURS NEEDED FOR FOR NAUSEA AND VOMITING 11/29 completed Not Available Not Available Not Available DILT-XR 240 mg capsule, extended release TAKE 1 CAPSULE BY MOUTH DAILY 03/07 completed Not Available Not Available Not Available CoQ10 active Not Available Not Availa ble Not Available Multivitami n 50 Plus active Not Available Not Available No t Available oxycodone 10 mg tablet TAKE 1 TABLET BY MOUTH EVERY 6 HOURS NEEDED FOR PAIN 11/29 completed Not Available Not Available Not Available Vitamin D3 125 mcg (5,000 unit) tablet Take by oral route. active Not Available Not Available No t Available Shea Allergy 180 mg tablet Take 1 tablet every day by oral route. active Not Available Not Available No t Available Xarelto 15 mg tablet TAKE 1 TABLET BY MOUTH EVERY DAY AT 5PM active Not Available Not Available No t Available Xarelto 20 mg tablet TAKE 1 TABLET BY MOUTH DAILY AT 5 PM 11/29 completed Not Available Not Available Not Available Eliquis 5 mg tablet TAKE 1 TABLET BY MOUTH TWICE DAILY active Not Available Not Available No t Available Jardiance 10 mg tablet TAKE 1 TABLET BY MOUTH DAILY active Not Available Not Available No t Available Vitals Date Recorded Body height Body mass index (BMI) Body weight Provider Name and Address Organization Details Last Updated DateTime 09/12/2024 165.1 cm 29.5 kg/m2 73146.85 g JAMIE OVERTON [place] - [facility] 09/12/2024 15:45:15 Social History None recorded. Functional Status None recorded. Mental Status None recorded. Family History Nothing Reported. Medical History Condition Response Allergies/Hayfever N Coronary Artery Disease N Anxiety/Depression N Breathing or lung disorders Y Emphysema N Nerve Disorders N Thyroid Problems N COPD N Pacemaker N Anemia N Kidney/Bladder Problems N Vascular Disease N Heart Trouble Y Heart Attack ([place]) N Gastrointestinal Disease N Cholesterol N Diabetes N Autoimmune disease N Bleeding Disorder N Orthotics N Arthritis Y Seizures/Epilepsy N Blood Clot N AIDS/HIV N Congestive Heart Failure (CHF) N Acid Reflux (GERD) N Cancer N Stroke N Asthma N Circulation Problems N Peripheral Vascular Disease N Sleep Apnea Y Hepatitis N Heart Disease N Rheumatoid Arthritis N Arrhythmia N Pulmonary Embolism N Headaches N Fibromyalgia N Hypertension Y Osteoporosis N Gynecological HistoryNo gynecological history recorded. Obstetrics History GPAL:G 0 P 0 0 0 0 Past Encounters Encounter ID Performer Location Encounter Start Date Encounter Closed Date Diagnosis/Indication Diagnosis SNOMED-CT Code Diagnosis ICD10 Code Diagnosis Note [id number] MD REGINA Bello [address] [place] [address] 09/12/2024 15:26:47 09/12/2024 16:56:34 Cervical radiculopathy 65445651 M54.12 Closed fra cture proximal humerus, greater tuberosity [id number] S42.252D Health Concerns Section Related Observation LastModified by Organization Detai ls LastModified Time None Recorded Concern Status LastModified by Organization Details LastModified Time None Recorded Payers Encounter Date Sequence Insurance Name Policy Number Policy Joseph Covered Member ID Joseph Member ID Guarantor Name 09/12/2024 [facility] [employer] Chiquita Meeks Notes Date Note Type Note Provider Name and Address Organization Details Recorded Time 09/12/2024 text/html Issue: Left randy ter tuberosity-fracture dislocation with axillary neuropathy, 12/15/2022Interval History: 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 Underwent a left hip hemiarthroplasty 12/19/2022. Left hip currently doing well. Continues to have difficulties with her left arm, however. Reports pain in the shoulder but more so weakness. Notes that she is unable to move it away from her body at all. Denies numbness or tingling. With assistance she can raise the arm up overhead, but unable to do this under her own power. She has completed a course of formal PT, continues with exercises at home. Arm still feels weak, and continues to have difficulty raising it without assistance. She has had an EMG demonstrating a moderate subacute left axillary neuropathy, with no evidence for C-spine pathology on MRI to otherwise explain these findings. We have been following over time looking for signs of improvement in axillary nerve pathology. After a brief period of partial improvement several months ago, she notes that she has not appreciated any change in motion or strength recently.Past family, medical, social history and review of systems have been reviewed and updated on the medical history sheet saved to the patient's chart. A 12-point review of systems is negative x12 except as noted above and/or on the medical history sheet.Examination: Pleasant 79-year-old woman in no acute distress. 5 feet 5 inches, 177 pounds. On exam of the left upper extremity, skin of the shoulders intact. No effusion, no gross atrophy. No point tenderness to palpation. Active forward elevation is to 45 degrees. Passive forward elevation 135, but unable to maintain the arm in this position. Passive Shoulder abduction to 90, with 4/5 shoulder abduction strength, difficulty maintaining the arm in this position. Passive external rotation 35? ? ? with positive ER lag. 4/5 with elbow flexion. 5/5 with wrist extension. Sensation intact in an axillary distribution. Fires EPL, FPL and intrinsics. Hand is warm and well-perfused.Imaginv of the left shoulder ordered and obtained at [facility] 06/06/2024 were reviewed during the visit. These demonstrate evidence for greater tuberosity fracture with posterior superior displacement. Glenohumeral joint space well maintained on axillary, but there is proximal migration of the humeral head and narrowing of glenohumeral joint space (essentially findings of cuff tear arthropathy) which is new compared with last xrays from a year ago. Posterior translation of the humeral head relative to the center the glenoid. A.c. joint space well preserved. Type II acromion. No significant glenohumeral arthrosis.EMG/NCS of the LUE performed at [facility] 06/16/2023 (Nicolas) reviewed on CIS: Electrodiagnostic findings are consistent with a moderate subacute left axillary neuropathy, based upon acute and chronic denervation in the left deltoid. However, because there are mild chronic abnormalities in the left biceps, C5-6 radiculopathy is not completely excluded by this study. Clinical correlation with cervical imaging studies is advised. Normal EMG of the triceps, flexor carpi radialis, extensor digitorum communis and first dorsal interosseous, combined with normal sensory and motor nerve conduction studies makes brachial plexopathy less likely. C-spine MRI performed at [facility] 09/02/2023 independently reviewed by me on [facility] during the visit today. This demonstrates mild to moderate right and moderate left foraminal narrowing at C3-4, no central canal stenosis or foraminal narrowing at C4-5, C5-6, C6-7 or C7-T1. 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 C-spine MRI rules out C5-6 radiculopathy. After some initial signs of clinical improvement in shoulder abduction strength, she seems to have plateaued again.Plan: Options for management were reviewed with the patient. Discussed that her current functional limitations are due to the combination of greater tuberosity fracture (essentially acting like a massive rotator cuff tear) and the EMG-proven axillary neuropathy. She has shown some signs of deltoid muscle recovery over the past 6 months, but recent progress has stalled. There is a chance that with continued recovery of the axillary nerve and deltoid as time goes on, functional level may improve, with or without surgery. With her current level of weakness in the deltoid currently I am concerned that her shoulder function following a reverse total shoulder arthroplasty would likely continue to be limited, similar to the level that she is able to achieve now. In my mind, the main goal of surgery at this time--given that functional improvement is unpredictable--would be pain relief. At this time, she notes that the pain is not particularly debilitating or limiting. Alternative options include living with the shoulder as it is, or consideration of a pectoralis transfer surgery to try to replicate the function of the deltoid. Lengthy discussion with the patient today regarding the pros and cons of operative versus continued nonoperative treatment. Before making more definitive treatment decisions, I do think it would be helpful to have her go for repeat EMG/NCS (last was over a year ago) to see if there has been any change in axillary nerve/deltoid muscle function. Will continue with her current restrictions. Will hold off on discussion of the permanency of her disability or functional capacity evaluation until we have further information about potential nerve/muscle recovery on EMG/NCS.[facility] CampusCritical[facility] speech recognition modeling manager software was used to create portions of this document. An attempt at proofreading has been made to minimize errors. Please call for corrections. Minal Ortiz MD [address] [place], [place] [address] [address], [place], [address], [facility] - [facility] 09/12/2024 16:56:32 OBGyn Episode No OBEpisode recorded.
--- OUTSIDE RECORDS SUMMARY | 2024-09-22 13:48 | XMS_ITS ---
Author Name [facility] Organization Unknown History of Medication Use Medication Directions Dispensed Refills Start Date End Date Stat us furosemide (LASIX) 40 MG tablet Take 1 tablet (40 mg total) by mouth every morning. 06/30/2022 active fexofenadine (MARIBELL) 180 MG tablet Take 1 tablet (180 mg total) by mouth daily. Administer with water only; do not administer with fruit juices. active carvedilol (COREG) 25 MG tablet Take 1 tablet (25 mg total) by mouth 2 (two) times a day. 07/21/2022 active Multiple Vitamins-Minerals (multivitamin with minerals) tablet Take 1 tablet by mouth daily. active atorvastatin (LIPITOR) 40 MG tablet Take 1 tablet (40 mg total) by mouth daily. 06/23/2022 active montelukast (SINGULAIR) 10 MG tablet Take 1 tablet (10 mg total) by mouth daily as needed. 08/27/2022 active coenzyme Q10 100 MG capsule Take 1 capsule (100 mg total) by mouth daily. active Problems Problem Status Onset Date Problem Type Date of Resoluti on Source Persistent atrial fibrillation (HCC) active EncounterDiagnosisAct HHCCT Hypertension, unspecified type active EncounterDiagnosisAct HH CCT
--- OUTSIDE RECORDS SUMMARY | 2024-09-22 13:48 | XMS_ITS | Data Portability ---
Author Organization [place] - [facility], [facility] Address [address] [place] [address] Care Team Providers Care Director Heart Name Role Phone BJ THURSTON Primary Care Provider [phone] CHEYENNE FABIAN Inspector Automatic Typewriter [phone] Assessment Encounter Date Assessment Date Assessment LastModified by Organization Details LastModified Time 11/30/2023 11/30/2023 left [email or web address] Not available 11/09 15:32:25 Plan of Treatment Reminders Order Date Submit Date Provider Last Modified By Organization Details Last Modified Time Details Appointments None recorded. Lab None recorded. Referral None recorded. Procedures None recorded. Surgeries None recorded. Imaging electromyog gila + nerve conduction study - Diagnosis: EVALUATE LUE axillary nerve/delto id function vs CERVICAL RADICULOPAT HY, please schedule with or Dr.Marinez- Gómez 2024 025 [email or web address] [facility] [address], [place], [address], 5 07:20:59 XR, shoulder, 2 or more view - L shoulder 4 view rm 214 2023 024 [email or web address], [address], [address], [place], [address], 4 10:20:57 Medication Orders None recorded. Patient TargetsNo targets recorded. Patient InstructionsNo instructions recorded. Reason for Referral None Reported. Results Created Date Observation Date Name Description Value Unit Range Abnormal Flag Note LastModifiedBy Organization Detail LastModifiedTime 11/30/19 24 09/02/2023 MRI, cervi sanaz spine , w/o contr ast No observ ation record ed. BARCODE Not Available 2023 16:37:43 04/08/20 24 06/16/2023 imagi ng/di agnos tic resul t No observ ation record ed. [email or web address] Not Available 03/12 23:50:36 04/08/20 24 09/02/2023 imagi ng/di agnos tic resul t No observ ation record ed. [email or web address] Not Available 03/12 23:50:39 04/08/20 24 06/16/2023 imagi ng/di agnos tic resul t No observ ation record ed. [email or web address] Not Available 03/12 23:50:57 06/06/2006/06/2024 XR, ileana padilal, 2 or more view http:/ [email or web address] ?Encry pted=s hAaTro YD8dLq bEUv6g %2BXZw aYqtaq 0bqfl% 2Fg9IQ a4ajBk vP9nXo QUaueC m3YtLR FvZlgJ JJ8mAn HZtai3 5k6294 AC0Kqa H%2BBU KSnKiQ trMwF INTERFACE [facility] [address], [place], [address], 06/06/2024 16:13:24 06/06/20 24 06/06/2024 XRileana, 2 or more view http:/ [email or web address] ?Encry pted=s hAaTro YD8dLq bEUv6g %2BXZw aYqtaq 0bqfl% 2Fg9IQ a4ajBk vP9nXo QUaueC m3YtLR FvZlgJ JJ8mAn HZtai3 2c4843 AC0Kqa H%2BBU KSnKiQ trMwF INTERFACE [facility] [address], [place], [address], 06/06/2024 16:13:26 Result Notes None recorded. Problems Name Problem SNOMED Code Status Onset Date Resolution Date Notes Provider Name and Address Organization Details Recorded Time No complaints 807423057 Active Status : 'A'; Not Available [facility] 09:28:22 Problem Notes None recorded. Procedures Surgical History None recorded. Imaging Results Imaging Date Name Status LastModified by Organiz ation Details LastModified Time 09/02/2023 MRI, cervical spine, w/o contrast completed BARCODE Information not available 11/30/2023 16:37:43 06/16/2023 imaging/diagn ostic result completed Information not available 04/08/2024 23:50:36 09/02/2023 imaging/diagn ostic result completed Information not available 04/08/2024 23:50:39 06/16/2023 imaging/diagn ostic result completed Information not available 04/08/2024 23:50:57 06/06/2024 XR, shoulder, 2 or more view completed INTERFACE [facility] [address] [place] [address], [address], 06/06/2024 16:13:24 06/06/2024 XR, shoulder, 2 or more view completed INTERFACE [facility] [address], [place], [address], 06/06/2024 16:13:26 Procedure Notes None recorded. Medical Equipment None Reported. Allergies Allergen ID Allergen Name Allergen Category Reaction Reaction Severity Criticality Documentation Date Start Date Code Code System Note Provider Name and Address Organization Details Recorded Time 907628 aspirin medicatio n rash Not available Not available 11/23/2023 1191 RxNorm JAMIE em [place] - [facility] 4 07:44:37 35968 sulfur medicatio n rash Not available Not available 10/12/20232022 70508 RxNorm Not Available [facility] 12:45:08 Medications Name Sig Start Date [...] and Address Organization Details Last Updated DateTime 11/30/2023 165.1 cm 29.5 kg/m2 32845.85 g JAMIE OVERTON [facility] 11/30/2023 15:14:18 Date Recorded Body height Body mass index (BMI) Body weight Provider Name and Address Organization Details Last Updated DateTime 03/07/2024 165.1 cm 29.5 kg/m2 04146.85 g JAMIE OVERTON [facility] 03/07/2024 10:50:06 Date Recorded Body height Body mass index (BMI) Body weight Provider Name and Address Organization Details Last Updated DateTime 06/06/2024 165.1 cm 29.5 kg/m2 74583.85 g JAMIE OVERTON [facility] 06/06/2024 15:58:40 Date Recorded Body height Body mass index (BMI) Body weight Provider Name and Address Organization Details Last Updated DateTime 09/12/2024 165.1 cm 29.5 kg/m2 55859.85 g JAMIE OVERTON [place] - [facility] 09/12/2024 15:45:15 Social History None recorded. Functional Status None recorded. Mental Status None recorded. Family History Nothing Reported. Medical History Condition Response Allergies/Hayfever N Coronary Artery Disease N Breathing or lung disorders Y Anxiety/Depression N Emphysema N Nerve Disorders N Thyroid Problems N COPD N Pacemaker N Kidney/Bladder Problems N Anemia N Vascular Disease N Heart Trouble Y Heart Attack (NM) N Gastrointestinal Disease N Cholesterol N Diabetes N Autoimmune disease N Bleeding Disorder N Orthotics N Seizures/Epilepsy N Arthritis Y Blood Clot N AIDS/HIV N Congestive Heart Failure (CHF) N Acid Reflux (GERD) N Cancer N Stroke N Asthma N Circulation Problems N Peripheral Vascular Disease N Sleep Apnea Y Hepatitis N Heart Disease N Rheumatoid Arthritis N Pulmonary Embolism N Arrhythmia N Headaches N Fibromyalgia N Hypertension Y Osteoporosis N Gynecological HistoryNo gynecological history recorded. Obstetrics History GPAL:G 0 P 0 0 0 0 Past Encounters Encounter ID Performer Location Encounter Start Date Encounter Closed Date Diagnosis/Indication Diagnosis SNOMED-CT Code Diagnosis ICD10 Code Diagnosis Note [id number] MD Juan Bello [address] [place] [address] [address] [place] [address] 11/30/2023 14:58:40 12/09/2023 09:14:47 Closed fracture proximal humerus, greater tuberosity 333474285 S42.252D [id number] MD Juan Bello [address] [place] [address] [address] [place] [address] 03/07/2024 10:38:39 04/05/2024 11:09:04 Left axillary neuropathy 2893098980 5320020 G56.92 [id number] MD Juan Bello [address] [place] [address] [address] [place] [address] 06/06/2024 15:34:21 06/28/2024 10:20:56 Pain of left shoulder joint 2238217232 5695359 M25.124 [id number] Minal Ortiz MD [facility] - [facility] [facility] [address] [place] [address] 09/12/2024 15:26:47 09/12/2024 16:56:34 Cervical radiculopathy 69733893 M54.12 Closed fra cture proximal humerus, greater tuberosity 809544471 S42.252D Health Concerns Section Related Observation LastModified by Organization Detai ls LastModified Time None Recorded Concern Status LastModified by Organization Details LastModified Time None Recorded Advance Directives Directive None Recorded Payers Encounter Date Sequence Insurance Name Policy Number Policy Joseph Covered Member ID Joseph Member ID Guarantor Name 11/30/2023 [facility] Gresham Twistleerine Czeczot 03/07/2024 [facility] 06/06/20[facility]iqu[facility] Czeczot 09/12/[address] [facility] Chiquita Czeczot Notes Date Note Type Note Provider Name and Address Organization Details Recorded Time text/html Issue: Left greater tuberosity-fracture dislocation with axillary neuropathy v. 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 She has returned to PT over the past few weeks, continues with exercises at home. Arm still feels weak, and continues to have difficulty raising it without assistance. She has had an EMG demonstrating a moderate subacute left axillary neuropathy. Returns today to review results of C-spine MRI.Past family, medical, social history and review of systems have been reviewed and updated on the medical history sheet saved to the patient's chart. A 12-point review of systems is negative x12 except as noted above and/or on the medical history sheet.Examination: Pleasant 78-year-old woman in no acute distress. 5 feet 5 inches, 177 pounds. On exam of the left upper stomach, skin of the shoulders intact. No effusion, no gross atrophy. No point tenderness to palpation. Active for elevation of the shrug. Passive forward elevation 120, but unable to maintain the arm in this position. Passive Shoulder abduction to 90, unable to maintain the arm in this position. Passive external rotation 35?? with positive ER lag. 4/5 with elbow flexion. 5/5 with wrist extension. Sensation intact in an axillary distribution. Fires EPL, FPL and intrinsics. Hand is warm and well-perfused.Imaginv of the left shoulder ordered and obtained at [facility] 03/25/2023 were reviewed during the visit. These demonstrate evidence for greater tuberosity fracture with posterior superior displacement. Glenohumeral joint space and acromioclavicular interval distance well maintained. Posterior translation of the humeral head relative to the center the glenoid. A.c. joint space well preserved. Type II acromion. No significant glenohumeral arthrosis.EMG/NCS of the LUE performed at [facility] 06/16/2023 (Nicolas) reviewed on CIS: Electrodiagnostic [...] plexopathy less likely. C-spine MRI performed at [facility] 09/02/2023 independently reviewed by me on OrthoPACS during the visit today. This demonstrates mild to moderate right and moderate left foraminal narrowing at C3-4, no central canal stenosis or foraminal narrowing at C4-5, C5-6, C6-7 or C7-T1. 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 C-spine MRI rules out C5-6 radiculopathy.Plan: Shoulder remains quite weak and EMG confirms axillary neuropathy v. C5-6 radiculopathy. Reviewed that until deltoid muscle function recovers she is not a candidate for reverse total shoulder athroplasty, which would be the definitive surgical intervention for her constellation of symptoms. Will also have her continue with PT to work on PROM in hopes of improving the mobility of her shoulder while awaiting recovery of nerve/muscle function. Follow-up in 3 months for clinical recheck. She will continue with light duty restrictions in the interim.[employer] speech recognition sales ambassador software was used to create portions of this document. An attempt at proofreading has been made to minimize errors. Please call for corrections. Minal Ortiz MD [address] [place] [address], [place], [address], [facility] - [facility] 11/30/2023 16:32:51 4 text/html Issue: Left greater tuberosity-fracture dislocation with axillary neuropathy v. C5-6 radiculopathyInterval History: This is a 78-year-old right-hand dominant [...] pathology on MRI to otherwise explain these findings.Past family, medical, social history and review of systems have been reviewed and updated on the medical history sheet saved to the patient's chart. A 12-point review of systems is negative x12 except as noted above and/or on the medical history sheet.Examination: Pleasant 78-year-old woman in no acute distress. 5 feet 5 inches, 177 pounds. On exam of the left upper extremity, skin of the shoulders intact. No effusion, no gross atrophy. No point tenderness to palpation. Active for elevation of the shrug. Passive forward elevation 120, but unable to maintain the arm in this position. Passive Shoulder abduction to 90, with 4/5 shoulder abduction strength. Passive external rotation 15?? with positive ER lag. 4/5 with elbow flexion. 5/5 with wrist extension. Sensation intact in an axillary distribution. Fires EPL, FPL and intrinsics. Hand is warm and well-perfused.Imaginv of the left shoulder ordered and obtained at [facility] 03/25/2023 were reviewed during the visit. These demonstrate evidence for greater tuberosity fracture with posterior superior displacement. Glenohumeral joint space and acromiohumeral interval distance well maintained. Posterior translation of the humeral head relative to the center the glenoid. A.c. joint space well preserved. Type II acromion. No significant glenohumeral arthrosis.EMG/NCS of the LUE performed at [facility] 06/16/2023 (Nicolas) reviewed on CIS: Electrodiagnostic [...] plexopathy less likely. C-spine MRI performed at [facility] 09/02/2023 independently reviewed by me on OrthoPACS during the visit today. This demonstrates mild to moderate right and moderate left foraminal narrowing at C3-4, no central canal stenosis or foraminal narrowing at C4-5, C5-6, C6-7 or C7-T1. 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 C-spine MRI rules out C5-6 radiculopathy. Some signs of clinical improvement in shoulder abduction strength, but remains weak.Plan: Shoulder remains quite weak and EMG confirms axillary neuropathy v. C5-6 radiculopathy. Reviewed that until deltoid muscle function recovers she is not a candidate for reverse total shoulder athroplasty, which would be the definitive surgical intervention for her constellation of symptoms. Will also have her continue with HEP to work on PROM in hopes of improving the mobility of her shoulder while awaiting recovery of nerve/muscle function. Follow-up in 3 months for clinical recheck. She will continue with light duty restrictions in the interim (no use of the left arm).[employer] speech recognition sales ambassador software was used to create portions of this document. An attempt at proofreading has been made to minimize errors. Please call for corrections. Minal Ortiz MD [address] [place] [address], [place], [address], [facility] [facility] 03/07/2024 11:11:03 4 text/html Issue: Left greater tuberosity-fracture dislocation with axillary neuropathyInterval History: This is a 78-year-old right-hand dominant [...] pathology on MRI to otherwise explain these findings.Past family, medical, social history and review of systems have been reviewed and updated on the medical history sheet saved to the patient's chart. A 12-point review of systems is negative x12 except as noted above and/or on the medical history sheet.Examination: Pleasant 78-year-old woman in no acute distress. 5 feet 5 inches, 177 pounds. On exam of the left upper extremity, skin of the shoulders intact. No effusion, no gross atrophy. No point tenderness to palpation. Active forward elevation is to 45 degrees. Passive forward elevation 120, but unable to maintain the arm in this position. Passive Shoulder abduction to 90, with 4/5 shoulder abduction strength. Passive external rotation 15?? with positive ER lag. 4/5 with elbow flexion. 5/5 with wrist extension. Sensation intact in an axillary distribution. Fires EPL, FPL and intrinsics. Hand is warm and well-perfused.Imaginv of the left shoulder ordered and obtained at [facility] today were reviewed during the visit. These demonstrate [...] glenohumeral arthrosis.EMG/NCS of the LUE performed at [facility] 06/16/2023 (Nicolas) reviewed on CIS: Electrodiagnostic [...] plexopathy less likely. C-spine MRI performed at [facility] 09/02/2023 independently reviewed by me on OrthoPACS during the visit today. This demonstrates mild to moderate right and moderate left foraminal narrowing at C3-4, no central canal stenosis or foraminal narrowing at C4-5, C5-6, C6-7 or C7-T1. 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 C-spine MRI rules out C5-6 radiculopathy. Some signs of clinical improvement in shoulder abduction strength, but remains weak.Plan: Options for management were reviewed with the patient. Discussed that her current functional limitations are due to the combination of greater tuberosity fracture (essentially acting like a massive rotator cuff tear) and the EMG-proven axillary neuropathy. She has shown some signs of deltoid muscle recovery over the past 6 months. There is a chance that with continued recovery of the axillary nerve and deltoid as time goes on, functional level may improve, with or without surgery. With her current level of weakness in the deltoid currently I would not suspect that her shoulder function following a reverse total shoulder arthroplasty would likely continue to be limited, similar to the level that she is able to achieve now. In my mind, the main goal of surgery at this time--given that functional improvement is unpredictable--would be pain relief. At this time, she notes that the pain is not particularly debilitating or limiting. Lengthy discussion with the patient today regarding the pros and cons of operative versus continued nonoperative treatment. Ultimately, we decided to continue with nonoperative care for now. Follow-up in another 3 months for clinical recheck of deltoid function for ongoing signs of recovery. Will continue with current restrictions and anticipate that these will likely be permanent. No new x-rays necessary at next appointment.[facility] speech recognition sales ambassador software was used to create portions of this document. An attempt at proofreading has been made to minimize errors. Please call for corrections. Minal Ortiz MD [address] [place] [address] [address] [facility], [place], [address], [facility] 06/06/2024 17:25:54 5 text/html Issue: Left greater tuberosity-fracture dislocation with axillary neuropathy, 12/15/2022Interval History: [...] arm in this position. Passive external rotation 35?? with positive ER lag. 4/5 with elbow flexion. 5/5 with wrist extension. Sensation intact in an axillary distribution. Fires EPL, FPL and intrinsics. Hand is warm and well-perfused.Imaginv of the left shoulder ordered and obtained at [facility] 06/06/2024 were reviewed during the visit. These [...] glenohumeral arthrosis.EMG/NCS of the LUE performed at [facility] 06/16/2023 (Nicolas) reviewed on CIS: Electrodiagnostic [...] plexopathy less likely. C-spine MRI performed at [facility] 09/02/2023 independently reviewed by me on [...] further information about potential nerve/muscle recovery on EMG[facility]NCS.[facility] [employer] [facility] speech recognition sales ambassador software was used to create portions of this document. An attempt at proofreading has been made to minimize errors. Please call for corrections. Minal Ortiz MD [address] [place], [place] [address] [address], [place], [address], [facility] [place] [facility] 09/12/2024 16:56:32 OBGyn Episode No OBEpisode recorded.
--- OUTSIDE RECORDS SUMMARY | 2024-09-22 13:48 | XMS_ITS | Continuity of Care Document ---
Author Organization [facility] Address [address] [place] [id number]- Care Team Providers Care Airplane First Officer Name Role Phone Refugio ACOSTA, Yair Long Primary Care Physician [phone] [place] [facility] [place]): [place]/24 [facility] [address] [place] [id number]- Attending Physician: Erick Jennings MD Admitting Physician: Erick Jennings MD Referring Physician: Yair Huff MD Encounter Type: Pre-OutPatient One Time Allergies, Adverse Reactions, Alerts Substance Criticality Severity Reaction Reaction Severity Status aspirin Active sulfa drugs rash Active Adhesive Bandage 1 A ctive 1Patient reports allergy to Tegaderm - use IV 3000 for securing IV Medications Shea = 180 mg, By Mouth, Daily, 0 Refills, Maintenance, 07/22/16 8:07:15 PM EST Start Date: 07/22/16 Status: Ordered Repeat number: 1 atorvastatin 40 mg oral tablet 1 tablet = 40 mg, By Mouth, Daily, # 30 tablet, 0 Refills, Maintenance, Tablet, Print Requisition Start Date: 07/23/16 Status: Ordered Quantity: 30.0 Unit: tablet Repeat number: 1 Carvedilol 25 mg, By Mouth, 2 times a day, Refills 0, Maintenance, 09/15/23 9:32:00 AM EST, Partial fill upon patient request if the prescription is for a schedule II opioid drug. Start Date: 09/15/23 Status: Ordered Repeat number: 1 CoQ10 See Instructions, 100 mg By Mouth Daily, 0 Refills, Maintenance, 02/12/17 11:46:08 AM EDT Start Date: 02/12/17 Status: Ordered Repeat number: 1 furosemide 40 mg oral tablet TAKE 1 TABLET BY MOUTH EVERY MORNING Start Date: 11/13/22 Status: Ordered Repeat number: 1 gabapentin 300 mg oral capsule 300 mg, 1, capsule, By Mouth, Daily, Refills 0, Maintenance, 07/23/16 7:14:54 AM EST Start Date: 07/23/16 Status: Ordered Repeat number: 1 Jardiance 10 mg oral tablet TAKE 1 TABLET BY MOUTH DAILY Start Date: 11/13/22 Status: Ordered Repeat number: 1 Mag-Ox Tablet = 250 mg, By Mouth, Daily, 0 Refills, Maintenance, 11/10/18 9:17:28 AM EDT, Tablet Start Date: 11/10/18 Status: Ordered Repeat number: 1 meloxicam 15 mg oral tablet TAKE 1 TABLET BY MOUTH EVERY DAY DIRECTED Start Date: 11/13/22 Status: Ordered Repeat number: 1 montelukast 10 mg oral tablet 10 mg, 1, tablet, By Mouth, Daily, Refills 0, Maintenance, 07/23/16 7:15:54 AM EST Start Date: 07/23/16 Status: Ordered Repeat number: 1 Multivitamin 1 tablet, Daily, 0 Refills, Maintenance, 12/11/21 6:46:00 AM EDT, Partial fill upon patient request if the prescription is for a schedule II opioid drug. Start Date: 12/11/21 Status: Ordered Repeat number: 1 omeprazole 40 mg oral enteric coated capsule TAKE 1 CAPSULE BY MOUTH EVERY DAY Start Date: 11/13/22 Status: Ordered Repeat number: 1 Turmeric = 1,000 mg, By Mouth, Daily, 0 Refills, Maintenance, 11/13/22 2:56:00 PM EDT, Partial fill upon patient request if the prescription is for a schedule II opioid drug. Start Date: 11/13/22 Status: Ordered Repeat number: 1 Vitamin C 500 mg oral tablet 1 tablet = 500 mg, By Mouth, Daily, 0 Refills, Maintenance, 12/11/21 6:46:00 AM EDT, Partial fill upon patient request if the prescription is for a schedule II opioid drug. Start Date: 12/11/21 Status: Ordered Repeat number: 1 Vitamin D3 2000 intl units oral tablet 1 tablet = 50 mcg, By Mouth, Daily, 0 Refills, Maintenance, 11/13/22 2:55:00 PM EDT, Partial fill upon patient request if the prescription is for a schedule II opioid drug. Start Date: 11/13/22 Status: Ordered Repeat number: 1 vitamin E 100 iu oral tablet 1 tablet = 100 International_Units, By Mouth, Daily, 0 Refills, Maintenance, 12/11/21 6:47:00 AM EDT,Partial fill upon patient request if the prescription is for a schedule II opioid drug. Start Date: 12/11/21 Status: Ordered Repeat number: 1 Xarelto 15 mg oral tablet 1 tablet = 15 mg, By Mouth, Daily before dinner, 0 Refills, Maintenance, 09/15/23 9:34:00 AM EST, Partial fill upon patient request if the prescription is for a schedule II opioid drug. Start Date: 09/15/23 Status: Ordered Repeat number: 1 Problem List Condition Confirmation Course Effective Dates Status Health St atus Informant NSTEMI (non-ST elevated myocardial infarction) Confirmed Active Asthma Confirmed Active Atrial fibrillation 1 Confirmed Active COVID-19 2 Confirmed 09/24/23 Active GERD (gastroesophageal reflux disease) Confirmed Active Small Hiatal hernia Confirmed Active Hypertension Confirmed Active Obese class I Confirmed Active OA (osteoarthritis) Confirmed Active Vertigo Confirmed Active 1Cardioversion X1 2Problem added by Discern Expert Social History Social History Type Response Smoking Status Never smoker entered on: 02/12/17 Sex Sex Representation Female (finding) Patient Care team information Care Team Personnel Name: Oxana Mei Position: S RN Supv Member Role: Primary Care Nurse Name: Yair Huff MD Position: Reference Physician Member Role: PCP Address: [address] [place] [address], [address] [place] [address] Telecom: Name: Thuy Kim RN Position: S RN Member Role: Primary Care Nurse Name: Wayne Cordero RN Position: S RN Member Role: Primary Care Nurse Name: Nelia Gandara RN Position: S RN Member Role: Primary Care Nurse Care Team Related Persons Name: JENNIFER PETERSON Name: DOMINIQUE HOLT Insurance Providers Guarantor name: ANGY KRISTEN Health Plan Information #: 1 Payer: [facility] [employer] Member Number: [id number] Policy Number: NA Group Number: [id number] Health Plan Information #: 2 Payer: [facility] [employer] Member Number: [id number] Policy Number: NA Group Number: [id number]
--- OUTSIDE RECORDS SUMMARY | 2024-09-22 13:48 | XMS_ITS | Clinical Summary ---
Author Organization [facility] Address [address] [place] [address] Phone Care Team Providers Care Strategic Planning Specialist Name Role Phone aYir Huff MD Primary Care Provider [phone] Encounters Date Type Department Care Team Description 07/12/2024 4:39 PM EST - 07/12/2024 11:59 PM EST Hospital Encounter [facility] Xray [address] [place] [address] Pain in right hip Discharge Disposition: Home or Self Care from Last 3 Months Social History Tobacco Use Types Packs/Day Years Used Date Smoking Tobacco: Never Assessed Comments Unknown Sex and Gender Information Value Date Recorded Sex Assigned at Not on file Legal Sex Female 2:43 PM EST Gender Identity Not on file Sexual Orientation Not on file Plan of Treatment Health Maintenance Due Date Last Done Comments DTaP,Tdap,and Td Vaccines (1 - Tdap) 1964 Pneumococcal Vaccine: 50+ Ye ars (1 of 2 - PCV) 1963 Zoster Vaccines (1 of 2) 1994 RSV Immunization Patients 60 + Years Old (1 - 1-dose 75+ series) 2019 COVID-19 Vaccine ( - 2023-2 5 season) 2024 Influenza Vaccine (#1) 2024 Cholesterol Screening (Lipid Panel) 06/03/2024 Depression Screening 06/03/2024 Falls Risk Assessment 06/03/2024 Medicare Annual Wellness Visit 06/03/2024 Osteoporosis Screening (Bone Density Screening) 06/03/2024 Social Influencers of Health Screening 06/03/2024 Hypertension/CHF/CAD Annual BMP Blood Test 07/13/2024 HIB Vaccines Aged Out No longer eligi ble based on patient's age to complete this topic HPV Vaccines Aged Out No longer eligi ble based on patient's age to complete this topic Hepatitis A Vaccines Aged Out No long er eligible based on patient's age to complete this topic Hepatitis B Vaccines Aged Out No long er eligible based on patient's age to complete this topic IPV Vaccines Aged Out No longer eligi ble based on patient's age to complete this topic MMR Vaccines Aged Out No longer eligi ble based on patient's age to complete this topic Meningococcal ACWY Vaccine Aged Out N o longer eligible based on patient's age to complete this topic Meningococcal B Vacine Aged Out No lo nger eligible based on patient's age to complete this topic RSV Immunization Patients Un valerie 20 months Aged Out No longer eligible b ased on patient's age to complete this topic Varicella Vaccines Aged Out No longer eligible based on patient's age to complete this topic Procedures Procedure Name Priority Date/Time Associated Diagnosis Comments XR HIP 2-3 VIEWS RIGHT Routine 07/12/2024 5:01 PM EST Pain in right hip from Last 3 Months Results * XR Hip 2-3 Views Right (07/12/2024 5:01 PM EST) Anatomical Region Laterality Modality Lower Extremities, Hip Right Radiograp hic Imaging 07/12/2024 6:08 PM EST Impressions 07/12/2024 6:11 PM EST No acute fracture. Previous bilateral hip surgery. -------- FINAL REPORT -------- Dictated By: Emre Thrasher Dictated Date: 07/12/2024 18:08 ET Assigned Physician: Emre Thrasher Reviewed and Electronically Signed By: Emre Thrasher Signed Date: 07/12/2024 18:11 ET Workstation ID: [id number] Transcribed By: Self Edit Transcribed Date: 07/12/2024 18:08 ET Narrative 07/12/2024 6:11 PM EST EXAMINATION: PELVIS RIGHT HIP CLINICAL INFORMATION: Pain. Fall COMPARISON: Frontal view of the pelvis 11/19/2017 TECHNIQUE: Frontal view of the pelvis. 2 views right hip FINDINGS: Pelvis: Instrumentation left proximal femur. The distal aspect of the left femoral component is not completely included. Right hip replacement. Screws transfix the acetabular component. No disruption of the SI joints or symphysis. No pelvic fracture. Numerous pelvic calcifications most of which are vascular. Degenerative change in the visualized lower spine Right hip: Right hip replacement. Hardware appears intact. No evidence of fracture or suspicious focal lesion. Procedure Note Emre Thrasher MD - 07/12/2024 EXAMINATION: PELVIS RIGHT HIP CLINICAL INFORMATION: Pain. Fall COMPARISON: Frontal view of the pelvis 11/19/2017 TECHNIQUE: Frontal view of the pelvis. 2 views right hip FINDINGS: Pelvis: Instrumentation left proximal femur. The distal aspect of the left femoralcomponent is not completely included. Right hip replacement. Screws transfix the acetabular component. No disruption of the SI joints or symphysis. No pelvic fracture. Numerous pelvic calcifications most of which arevascular. Degenerative change in the visualized lower spine Right hip: Right hip replacement. Hardware appears intact. No evidence of fracture orsuspicious focal lesion. IMPRESSION: No acute fracture. Previous bilateral hip surgery. -------- FINAL REPORT -------- Dictated By: Emre Thrasher Dictated Date: 07/12/2024 18:08 ET Assigned Physician: Emre Thrasher Reviewed and Electronically Signed By: Emre Thrasher Signed Date: 07/12/2024 18:11 ET Workstation ID: [id number] Transcribed By: Self Edit Transcribed Date: 07/12/2024 18:08 ET Gm Carroll DO IMG XR PROCEDURES Final Resu lt from Last 3 Months Insurance [employer] [address] [place] [address] Care Teams Strategic Planning Specialist Relationship Specialty Start Date End Date Yair Huff MD [address] [place] [address] Dr [address] [place] [id number] PCP - General Internal Medicine 07/12/24
--- OUTSIDE RECORDS SUMMARY | 2024-09-22 13:48 | XMS_ITS | Clinical Summary ---
Author Organization [facility] Address [address] [place] [address] Care Team Providers Care Direct Support Professional Home Health Name Role Phone Yair Huff MD Primary Care Provider [phone] Allergies Active Allergy Reactions Criticality Noted Date Comments Adhesives/Tape Unknown/Patient and Family Unable to Define Medium 09/24/2022 Aspirin Unknown/Patient and Family Unable to Define Medium 09/24/2022 Medications Medication Sig Dispensed Refills Start Date End Date Status atorvastatin (LIPITOR) 40 MG tabletIndications:Hyp ertension, unspecified type,Persistent atrial fibrillation (HCC) Take 1 tablet (40 mg total) by mouth daily. 06/23/2022 Active montelukast (SINGULAIR) 10 MG tabletIndications:Hyp ertension, unspecified type,Persistent atrial fibrillation (HCC) Take 1 tablet (10 mg total) by mouth daily as needed. 08/27/2022 Active OMEprazole (PriLOSEC) 40 MG capsuleIndications:Hy pertension, unspecified type,Persistent atrial fibrillation (HCC) Take by mouth daily. 07/21/2022 Active meloxicam (MOBIC) 15 MG tabletIndications:Hyp ertension, unspecified type,Persistent atrial fibrillation (HCC) Take 1 tablet (15 mg total) by mouth daily. 09/01/2022 Active losartan (COZAAR) 100 MG tabletIndications:Hyp ertension, unspecified type,Persistent atrial fibrillation (HCC) Take 1 tablet (100 mg total) by mouth daily. 06/30/2022 Active Xarelto 20 MG tabletIndications:Hyp ertension, unspecified type,Persistent atrial fibrillation (HCC) TAKE 1 TABLET BY MOUTH DAILY AT 5.30 PM 07/17/2022 Active Vitamin E 100 units TabIndications:Hypert ension, unspecified type,Persistent atrial fibrillation (HCC) Take 100 Int'l Units by mouth. 12/11/2021 Active gabapentin (NEURONTIN) 300 MG capsuleIndications:Hy pertension, unspecified type,Persistent atrial fibrillation (HCC) Take 2 capsules (600 mg total) by mouth nightly. 06/30/2022 Active furosemide (LASIX) 40 MG tabletIndications:Hyp ertension, unspecified type,Persistent atrial fibrillation (HCC) Take 1 tablet (40 mg total) by mouth every morning. 06/30/2022 Active carvedilol (COREG) 25 MG tabletIndications:Hyp ertension, unspecified type,Persistent atrial fibrillation (HCC) Take 1 tablet (25 mg total) by mouth 2 (two) times a day. 07/21/2022 Active diltiazem (CARDIZEM CD) 120 MG 24 hr capsuleIndications:Hy pertension, unspecified type,Persistent atrial fibrillation (HCC) Take 1 capsule (120 mg total) by mouth daily. 08/27/2022 Active fexofenadine (MARIBELL) 180 MG tabletIndications:Hyp ertension, unspecified type,Persistent atrial fibrillation (HCC) Take 1 tablet (180 mg total) by mouth daily. Administer with water only; do not administer with fruit juices. Active empagliflozin (Jardiance) 10 MG tabletIndications:Hyp ertension, unspecified type,Persistent atrial fibrillation (HCC) Take 1 tablet (10 mg total) by mouth every morning. Active Multiple Vitamins-Minerals (multivitamin with minerals) tabletIndications:Hyp ertension, unspecified type,Persistent atrial fibrillation (HCC) Take 1 tablet by mouth daily. Active cholecalciferol 10 MCG (400 UNIT) tabletIndications:Hyp ertension, unspecified type,Persistent atrial fibrillation (HCC) Take 1 tablet (400 Units total) by mouth daily. Active Ascorbic Acid (vitamin C) 100 MG tabletIndications:Hyp ertension, unspecified type,Persistent atrial fibrillation (HCC) 1 tablet (100 mg total) 2 (two) times a day. Active coenzyme Q10 100 MG capsuleIndications:Hy pertension, unspecified type,Persistent atrial fibrillation (HCC) Take 1 capsule (100 mg total) by mouth daily. Active flecainide (TAMBOCOR) 50 MG tabletIndications:Hyp ertension, unspecified type,Persistent atrial fibrillation (HCC) Take 1 tablet (50 mg total) by mouth twice daily (every 12 hours). Active Magnesium Oxide 250 MG Tab tabletIndications:Hyp ertension, unspecified type,Persistent atrial fibrillation (HCC) Take 1 tablet (250 mg total) by mouth daily. Take 2 hours apart from other medications; take with food Active diltiazem (CARDIZEM) 120 MG tabletIndications:Hyp ertension, unspecified type,Persistent atrial fibrillation (HCC) Take 1 tablet (120 mg total) by mouth 4 (four) times a day. Active Active Problems No known active problems Social History Tobacco Use Types Packs/Day Years Used Date Smoking Tobacco: Never Smokeless Tobacco: Never Tobacco Cessation:Counseling Given: Not Answered Alcohol Use Standard Drinks/Week Comments Not Currently 0 (1 standard drink = 0.6 oz pur e alcohol) Sex and Gender Information Value Date Recorded Sex Assigned at Female 09/23/2022 3:07 PM EST Gender Identity Female 09/23/2022 3:07 PM EST Sexual Orientation Heterosexual (straight) 09/23 3:07 PM EST Last Filed Vital Signs Vital Sign Reading Time Taken Comments Blood Pressure 148/85 09/24/2022 8:34 AM EST Pulse 65 09/24/2022 8:34 AM EST Temperature - - Respiratory Rate - - Oxygen Saturation - - Inhaled Oxygen Concentration - - Weight - - Height - - Body Mass Index - - Plan of Treatment Health Maintenance Due Date Last Done Comments DTaP/Tdap/Td Vaccines (1 - Tdap) 1964 Pneumococcal Vaccines 50+ (1 of 1 - PCV) 1994 Zoster (Shingles) Vaccine (1 of 2) 1994 DXA Bone Density (Females,Ag es 65 and older) 2009 RSV Vaccine 60 years and old er and Patients (1 - 1-dose 75+ series) 2019 Influenza Vaccine 03/10/2024 COVID-19 Vaccine (2023-2 5 season) 2024 Hepatitis B Vaccines Aged Out No long er eligible based on patient's age to complete this topic Care Teams Direct Support Professional Home Health Relationship Specialty Start Date End Date Yair Huff MD [address] [place] [address] Dr Decker Robbins [place] [id number] PCP - General Internal Medicine 09/23/22
[2024-09-22 14:14] LABS: MANUAL DIFF FLAG NO
[2024-09-22 15:15] LABS: Basophils Absolute Auto 0.1 X10*3/uL (0.0-0.2); Basophils Percent Auto 0.7 % (0-2); Eosinophils Absolute Auto 0.1 X10*3/uL (0.0-0.4); Hemoglobin 15.4 g/dl (12.0-16.0); Imm Gran Abs Auto 0.02 X10*3/uL (0.00-0.03); Imm Gran Pct Auto 0.3 % (0.0-0.4); Lymphocytes Absolute Auto 1.5 X10*3/uL (1.2-4.9); Lymphocytes Percent Auto 20.9 % (20-40); Mean Corpuscular HGB Conc 34.2 g/dl (31.0-35.0); Mean Corpuscular Hemoglobin 32.7 pg (27.0-33.0); Mean Corpuscular Volume 95.5 fL (80.0-98.0); Mean Platelet Volume 9.3 fL (9.4-12.3); Monocytes Absolute Auto 0.8 X10*3/uL (0.1-1.2); Monocytes Percent Auto 10.8 % (2-11); Neutrophils Absolute Auto 4.7 x10*3/uL (2.0-8.3); Neutrophils Percent Auto 65.3 % (45-73); Platelet Count 211 X10*3/uL (160-400); Red Blood Count 4.71 X10*6/uL (4.20-5.50); Red Cell Distribution Width 12.3 % (11.0-16.0); White Blood Count 7.1 X10*3/uL (4.8-10.8)
== END 2024-09-22 13:39 | disposition home or self-care (01) ==
LOC: HO.LAB 13:38
PROVIDERS: PCP Family Medicine; Visit Provider Family Medicine
DX: D64.9 Anemia, unspecified (principal); K92.2 Gastrointestinal hemorrhage, unspecified
CPT/HCPCS: 36415; 85025

== ENCOUNTER 2024-10-05 13:02 | Inpatient (IN) | payer MEDICARE, SELFPAY ==
[2024-10-05] VITALS (8 sets, daily range): BP systolic 142–213; BP diastolic 57–96; PULSE 59–87; RESP 14–18; TEMP 36.1–36.9; O2SAT 94–96; BMI 28.0
--- NOTE | ~2024-10-05 | CT_ITS ---
CLINICAL HISTORY: abdominal pain CT abdomen and pelvis with contrast Comparison: CT/REG/KS/SR - CT GI BLEED ABD PEL WO/W IVCON - 01/20/24 08:47 EDT Findings: Small hiatal hernia. Atelectasis. Tiny bilateral pulmonary nodules measuring no more than 5 mm. Per Fleischner criteria: Low-risk patients: No routine follow-up required. High-risk patients: Optional CT at 12 months. Cardiomegaly without significant pericardial effusion. Coronary artery calcifications. Hepatic steatosis noted. Splenic cleft. Distended gallbladder wall thickening and pericholecystic stranding, concerning for acute cholecystitis. Possible layering sludge and/or noncalcified stones along the fundus of the gallbladder. Bilateral hypodense/intermediate dense renal cysts. This may be further evaluated with ultrasound. No significant hydronephrosis. Duodenal diverticulum along the 2nd segment. No bowel obstruction. Diffuse proximal colonic mural thickening. Diffuse proximal colonic mural thickening, may be related to degree of under distention or mild colitis. Calcified multifibroid uterus. Scattered colonic diverticulosis without diverticulitis. Normal appendix. Visualized bladder is unremarkable. Bilateral total hip arthroplasties. Levoscoliosis. Osteopenia with diffuse multilevel spondylosis. Ankylosis at L5-S1. Chronic appearing compression deformity at T11. No retropulsion. Diffuse atheromatous plaque disease throughout the aorta and branch vessels, without aneurysmal dilatation. IMPRESSION: 1. Findings suggestive of acute cholecystitis. 2. Diffuse proximal colonic mural thickening, may be related to degree of under distention or mild colitis. 3. Additional findings as described. This document has been electronically signed by: Danny Peña MD on 10/05/2024 19:48:42
--- NOTE | ~2024-10-05 | US_ITS ---
CLINICAL HISTORY: f u on acute cholecyctitis US abdomen limited Comparison: CT abdomen and pelvis tortuosity 10/05/2024 and right upper quadrant ultrasound 05/19/2024 Findings: This is a limited study to evaluate the gallbladder. There is mild gallbladder distention There is echogenic sludge and small gallstones again noted. Gallbladder wall is mildly prominent measuring 3 mm. There is questionable small pericholecystic fluid. The common bile duct measures 5 mm. No visualized right upper quadrant ascites. IMPRESSION: Echogenic sludge, small gallstones again noted Mild gallbladder wall thickening possible trace pericholecystic fluid findings suspicious for acute and/or chronic cholecystitis. Further evaluation with HIDA scan and ejection fraction could be performed if clinically warranted This document has been electronically signed by: Ranjith Dykes MD on 10/08/2024 05:19:08
--- NOTE | 2024-10-05 13:07 | ECG_ITS ---
Test Reason : WEAKNESS Blood Pressure : */* mmHG Vent. Rate : 61 BPM Atrial Rate : 50 BPM P-R Int : * ms QRS Dur : 122 ms QT Int : 462 ms P-R-T Axes : * 15 13 degrees QTcB Int : 465 ms Ventricular-paced rhythm with background Afib Abnormal ECG When compared with ECG of 19-May-2024 12:44, No significant changes seen Referred By: Lino Parekr Electronically Signed By: Rickie Allison
--- NOTE | 2024-10-05 13:07 | ED.GENADULT ---
HPI - General Adult General Chief complaint: Abdominal Pain Stated complaint: Tired, Aches, Not Eating Often Time Seen by Provider: 10/05/24 16:22 Source: patient Limitations: no limitations History of Present Illness ED Provider: Tc HPI narrative: 79yo female w/ pmhx of afib on eliquis, htn presenting for n/v and abdominal pain - Sxs began last with chills and progressed to n/v on Thursday. Pt states she has not been able to tolerate solid food and she is also complaining of RUQ abd pain - She denies fevers, head pain, chest pain, sob, dysuria, diarrhea Related Data Home Medications ?Medication ?Instructions ?Recorded ?Confirmed montelukast 10 mg tablet 10 mg PO BEDTIME 05/16/20 05/03/24 fexofenadine 180 mg tablet 180 mg PO DAILY 06/21/21 05/03/24 ([facility] Allergy) coenzyme Q10 100 mg tablet 100 mg PO DAILY 07/28/21 05/03/24 magnesium 250 mg tablet 250 mg PO BEDTIME 07/28/21 05/03/24 multivitamin 1 tab PO DAILY 07/28/21 05/03/24 vitamin E (dl, acetate) 180 mg 180 mg PO DAILY 07/28/22 05/03/24 (400 unit) capsule ascorbic acid (vitamin C) 500 mg 1,000 mg PO DAILY 09/26/22 05/03/24 tablet furosemide 40 mg tablet 40 mg PO DAILY 09/26/22 05/03/24 omeprazole 40 mg capsule,delayed 40 mg PO BEDTIME 09/26/22 05/03/24 release turmeric 400 mg capsule 400 mg PO DAILY@1200 11/03/22 05/03/24 gabapentin 300 mg capsule 600 mg PO BEDTIME 04/06/23 05/03/24 cholecalciferol (vitamin D3) 25 25 mcg PO DAILY 09/03/23 05/03/24 mcg (1,000 unit) capsule (Vitamin D3) diltiazem HCl 120 mg 120 mg PO DAILY 05/03/24 05/03/24 capsule,extended release 24 hr Previous Rx's ?Medication ?Instructions ?Recorded ipratropium 0.5 mg-albuterol 3 mg 3 ml inhalation Q4-6H PRN for 12/02/22 (2.5 mg base)/3 mL nebulization wheezing #180 mL soln empagliflozin 10 mg tablet 10 mg PO DAILY 90 days #90 tabs 08/24/23 (Jardiance) carvedilol 25 mg tablet 25 mg PO BID #60 tabs 04/12/24 atorvastatin 40 mg tablet 40 mg PO DAILY #90 tabs 05/09/24 apixaban 5 mg tablet (Eliquis) 5 mg PO BID #60 tabs 07/04/24 Allergies Allergy/AdvReac Type Severity Reaction Status Date / Time aspirin [ASPIRIN] Allergy Unknown RASH Verified 10/05/24 13:13 Sulfa (Sulfonamide Allergy Unknown RASH Verified 10/05/24 13:13 Antibiotics) [SULFA (SULFONAMIDE ANTIBIOTICS)] flecainide AdvReac Intermediate Dizziness Verified 10/05/24 13:13 amiodarone AdvReac Mild Dizziness Verified 10/05/24 13:13 Digitalis Glycosides AdvReac Confusion Verified 10/05/24 13:13 adhesives AdvReac Unknown Uncoded 05/19/24 12:28 Review of Systems Review of Systems: Yes all other systems are reviewed and are negative COUNTS INCLUDE 234 BEDS AT THE [facility] Past Medical History Attestation statement: The following information was validated with the patient. COUNTS INCLUDE 234 BEDS AT THE [facility] Narrative: Atrial fibrillation Medical History (HFpEF) heart failure with preserved ejection fraction Cardiac pacemaker in situ Permanent atrial fibrillation Paroxysmal atrial fibrillation Preoperative cardiovascular examination NSTEMI (non-ST elevated myocardial infarction) Pulmonary hypertension Chronic heart failure with preserved ejection fraction (HFpEF) Chronic heart failure with preserved ejection fraction (HFpEF) Cardiomyopathy Pulmonary hypertension Diastolic dysfunction History of cardiomyopathy HTN (hypertension) History of cardioversion Surgical History S/P cardiac catheterization Hx of total hip arthroplasty Hx of cardiac cath Hx of hand surgery History of back surgery Family History Family History Father Cancer Mother Stroke Brother Atrial fibrillation Sister Cardiovascular disease Atrial fibrillation Social History Social History Household Members: None Housing: House Do you presently have visiting nurse or other home services: No Unable to assess alcohol history related to: Unknown Alcohol intake: former Comment: pt refusing bed alarm Patient Tobacco Use Status: Never used Tobacco Smoked in Last 30 Days: No Second Hand Smoke Exposure: No Use of substances other than those prescribed or required for medical reasons: No Advance Directives: Yes Advance Directives on File: Yes Advance Directives Date on File: 12/18/22 service: No Current occupational status: retired Physical Exam ED Vital Signs: Vital Signs - 24 hr 10/05/24 13:07 10/05/24 16:28 10/05/24 19:39 Temperature 97.5 F 97.0 F 98.5 F Pulse Rate 62 61 61 Respiratory Rate 16 14 17 Blood Pressure 192/96 H 195/96 H 207/91 H Pulse Oximetry 95 96 95 Oxygen Delivery Method Room Air Room Air Room Air BMI result Body Mass Index 28.0 well appearing in NAD a&Ox4; no focal deficits lungs ctab ns1s2 rrr abd soft nondistended with ruq and epigastric ttp right cva ttp Course Course Course Narrative: RME, this is a rapid medical exam performed by Brian Parker please refer to primary provider for complete H&P- 79-year-old female with past medical history significant for heart failure, paroxysmal AFib presents for evaluation of nausea vomiting and dry heaves. Symptoms started 5 days ago. She reports increased weakness. Denies any fevers or chills. She was already on Zofran with no improvement. Plan for labs. We will defer advanced imaging to primary ER provider Medications Administered Discontinued Medications Generic Name Dose Route Start Last Admin Trade Name Freq PRN Reason Stop Dose Admin Carvedilol 25 mg 10/05/24 19:41 10/05/24 19:57 Carvedilol 25 Mg Tablet PO 10/05/24 19:42 25 mg ONCE ONE Administration Protocol Sodium Chloride 500 mls @ 500 mls/hr 10/05/24 16:30 10/05/24 18:41 Ns IV 10/05/24 17:29 Infused .Q1H ROSENDA Infusion Iohexol 100 ml 10/05/24 18:32 10/05/24 18:35 Iohexol 350 Mg/Ml 100 Ml Infus..Btl IV 10/05/24 18:33 85 ml ONCE ONE Administration Ondansetron HCl 4 mg 10/05/24 18:40 10/05/24 19:05 Ondansetron Hcl 4 Mg/2 Ml Vial IVPUSH 10/05/24 18:41 4 mg ONCE ONE Administration Medical Decision Making Medical Decision Making MDM Narrative: 79yo female presenting for n/v and abdominal pain - concerns for the following; gastroenteriris, biliary dz, pancreatitis, nephrolithiasis, uti - labs, fluids and imaging studies ordered Lab and imaging interpretation: - elevated h&h, elevated t bili - blood in UA - no signs of ischemia on ecg - gallbladder appears distended on CT; radiology reading it as cholecystitis Ceftriaxone and Flagyl ordered Additional fluids ordered I spoke with Dr. Gerard who will evaluate patient in the morning Overnight hospitalist accepted patient for admission Patient updated and agreeable to admission Lab Data 10/05/24 13:38 10/05/24 13:38 Labs: Lab Results 10/05/24 10/05/24 10/05/24 Range/Units 13:38 13:44 16:42 WBC 8.5 (4.8-10.8) X10*3/uL RBC 5.28 (4.20-5.50) X10*6/uL Hgb 17.2 H (12.0-16.0) g/dl Hct 47.8 H (37.0-47.0) % MCV 90.5 (80.0-98.0) fL MCH 32.6 (27.0-33.0) pg MCHC 36.0 H (31.0-35.0) g/dl RDW 12.3 (11.0-16.0) % Plt Count 206 (160-400) X10*3/uL MPV 9.1 L (9.4-12.3) fL Immature Gran % (Auto) 0.2 (0.0-0.4) % Neut % (Auto) 70.5 (45-73) % Lymph % (Auto) 17.0 L (20-40) % Nelson % (Auto) 10.5 (2-11) % Eos % (Auto) 1.2 (0-4) % Baso % (Auto) 0.6 (0-2) % Lymph # (Auto) 1.4 (1.2-4.9) X10*3/uL Nelson # (Auto) 0.9 (0.1-1.2) X10*3/uL Eos # (Auto) 0.1 (0.0-0.4) X10*3/uL Baso # (Auto) 0.1 (0.0-0.2) X10*3/uL Abs Immat Gran (auto) 0.02 (0.00-0.03) X10*3/uL Absolute Neuts (auto) 6.0 (2.0-8.3) x10*3/uL Absolute Nucleated RBC 0.000 (0.0-0.012) X10*3/uL Nucleated RBC % (auto) 0.0 (0.0-0.2) /100WBC Sodium 143 (135-145) mmol/L Potassium 3.4 (3.3-5.1) mmol/L Chloride 113 H (96-108) mmol/L Carbon Dioxide 19 L (22-29) mmol/L Anion Gap 14 (12-20) BUN 18 H (9-16) mg/dL Creatinine 0.77 (0.5-1.4) mg/dL Estim Creat Clear Calc 59.5 Estimated GFR > 60 Random Glucose 128 H (60-115) mg/dL Lactic Acid (0.5-2.0) mmol/L Calcium 9.5 (8.4-10.2) mg/dL Magnesium 1.7 (1.6-2.6) mg/dL Total Bilirubin 2.1 H (0.0-1.0) mg/dL Direct Bilirubin (0.0-0.5) mg/dL AST 21 (5-31) U/L ALT 16 (0-31) U/L Alkaline Phosphatase 109 (39-117) U/L Troponin I High Sens 11.1 (<3.5-17.0) ng/L B-Natriuretic Peptide 234 H (<100) pg/mL Total Protein 7.6 (6.5-8.0) g/dL Albumin 4.0 (3.5-5.0) g/dL Lipase 14 (8-78) U/L Urine Color Dark Yellow Urine Appearance Cloudy Urine pH 5.5 (5.0-9.0) Ur Specific Mulga 1.025 (1.005-1.025) Urine Protein 300 (3+) H (Neg-Trace) mg/dL Urine Glucose (UA) Negative (Negative) mg/dL Urine Ketones Trace (Negative) mg/dL Urine Blood Large (3+) H (Negative) Urine Nitrite Negative (Negative) Ur Leukocyte Esterase Trace H (Negative) Urine RBC >20 H (0-2) /HPF Urine WBC 0-5 (0-5) /HPF Ur Squamous Epith Cells 6-10 (0-2) /HPF Urine Bacteria None Seen (None Seen) Hyaline Casts 3-5 (0-2) /LPF Influenza Type A (PCR) NEGATIVE (Negative) Influenza Type B (PCR) NEGATIVE (Negative) RSV RNA Qual (PCR) NEGATIVE (Negative) SARS-CoV-2 RNA (RT-PCR) NEGATIVE (Negative) 10/05/24 Range/Units 17:30 WBC (4.8-10.8) X10*3/uL RBC (4.20-5.50) X10*6/uL Hgb (12.0-16.0) g/dl Hct (37.0-47.0) % MCV (80.0-98.0) fL MCH (27.0-33.0) pg MCHC (31.0-35.0) g/dl RDW (11.0-16.0) % Plt Count (160-400) X10*3/uL MPV (9.4-12.3) fL Immature Gran % (Auto) (0.0-0.4) % Neut % (Auto) (45-73) % Lymph % (Auto) (20-40) % Nelson % (Auto) (2-11) % Eos % (Auto) (0-4) % Baso % (Auto) (0-2) % Lymph # (Auto) (1.2-4.9) X10*3/uL Nelson # (Auto) (0.1-1.2) X10*3/uL Eos # (Auto) (0.0-0.4) X10*3/uL Baso # (Auto) (0.0-0.2) X10*3/uL Abs Immat Gran (auto) (0.00-0.03) X10*3/uL Absolute Neuts (auto) (2.0-8.3) x10*3/uL Absolute Nucleated RBC (0.0-0.012) X10*3/uL Nucleated RBC % (auto) (0.0-0.2) /100WBC Sodium (135-145) mmol/L Potassium (3.3-5.1) mmol/L Chloride (96-108) mmol/L Carbon Dioxide (22-29) mmol/L Anion Gap (12-20) BUN (9-16) mg/dL Creatinine (0.5-1.4) mg/dL Estim Creat Clear Calc Estimated GFR Random Glucose (60-115) mg/dL Lactic Acid 1.6 (0.5-2.0) mmol/L Calcium (8.4-10.2) mg/dL Magnesium (1.6-2.6) mg/dL Total Bilirubin 2.0 H (0.0-1.0) mg/dL Direct Bilirubin 0.5 (0.0-0.5) mg/dL AST 25 (5-31) U/L ALT 16 (0-31) U/L Alkaline Phosphatase 104 (39-117) U/L Troponin I High Sens (<3.5-17.0) ng/L B-Natriuretic Peptide (<100) pg/mL Total Protein 7.7 (6.5-8.0) g/dL Albumin 3.8 (3.5-5.0) g/dL Lipase (8-78) U/L Urine Color Urine Appearance Urine pH (5.0-9.0) Ur Specific Mulga (1.005-1.025) Urine Protein (Neg-Trace) mg/dL Urine Glucose (UA) (Negative) mg/dL Urine Ketones (Negative) mg/dL Urine Blood (Negative) Urine Nitrite (Negative) Ur Leukocyte Esterase (Negative) Urine RBC (0-2) /HPF Urine WBC (0-5) /HPF Ur Squamous Epith Cells (0-2) /HPF Urine Bacteria (None Seen) Hyaline Casts (0-2) /LPF Influenza Type A (PCR) (Negative) Influenza Type B (PCR) (Negative) RSV RNA Qual (PCR) (Negative) SARS-CoV-2 RNA (RT-PCR) (Negative) Discharge Plan Discharge Clinical Impression: Acute cholecystitis Patient Disposition: Admitted As Inpatient Print Language: Japanese
[2024-10-05 13:43] LABS: MANUAL DIFF FLAG NO
[2024-10-05 13:49] LABS: Basophils Absolute Auto 0.1 X10*3/uL (0.0-0.2); Basophils Percent Auto 0.6 % (0-2); Eosinophils Absolute Auto 0.1 X10*3/uL (0.0-0.4); Eosinophils Percent Auto 1.2 % (0-4); Hematocrit 47.8 % (37.0-47.0); Hemoglobin 17.2 g/dl (12.0-16.0); Imm Gran Abs Auto 0.02 X10*3/uL (0.00-0.03); Imm Gran Pct Auto 0.2 % (0.0-0.4); Lymphocytes Absolute Auto 1.4 X10*3/uL (1.2-4.9); Mean Corpuscular Hemoglobin 32.6 pg (27.0-33.0); Mean Corpuscular Volume 90.5 fL (80.0-98.0); Mean Platelet Volume 9.1 fL (9.4-12.3); Monocytes Absolute Auto 0.9 X10*3/uL (0.1-1.2); Monocytes Percent Auto 10.5 % (2-11); Neutrophils Percent Auto 70.5 % (45-73); Platelet Count 206 X10*3/uL (160-400); Red Blood Count 5.28 X10*6/uL (4.20-5.50); Red Cell Distribution Width 12.3 % (11.0-16.0); White Blood Count 8.5 X10*3/uL (4.8-10.8)
[2024-10-05 13:53] LABS: Appearance Urine Cloudy; Color Urine Dark Yellow; Glucose Urine UA Negative (Negative); Leukocyte Esterase Urine Trace (Negative); Nitrite Urine Negative (Negative); PH 5.5 (5.0-9.0); Specific Gravity - Urine 1.025 (1.005-1.025); UMIC TRIGGER UACC YES; Urine Blood Large (3+) (Negative); Urine Ketones Trace mg/dL (Negative); Urine Protein 300 (3+) mg/dL (Neg-Trace)
[2024-10-05 13:55] LABS: Bacteria Urine None Seen (None Seen); RBC Urine >20 /HPF (0-2); WBC Urine 0-5 /HPF (0-5)
[2024-10-05 14:00] LABS: Alanine Aminotransferase 16 U/L (0-31); Alkaline Phosphatase 109 U/L (39-117); Anion Gap 14 (12-20); Aspartate Amino Transferase 21 U/L (5-31); Bilirubin Total 2.1 mg/dL (0.0-1.0); Blood Urea Nitrogen 18 mg/dL (9-16); Calcium 9.5 mg/dL (8.4-10.2); Carbon Dioxide 19 mmol/L (22-29); Chloride 113 mmol/L (96-108); Creatinine Clr Calc Pharmacy 59.5; Estimated Glomerular Filt Rate > 60; Glucose Random 128 mg/dL (60-115); Lipase 14 U/L (8-78); Magnesium 1.7 mg/dL (1.6-2.6); Potassium 3.4 mmol/L (3.3-5.1); Sodium 143 mmol/L (135-145); Total Protein 7.6 g/dL (6.5-8.0)
[2024-10-05 14:22] LABS: Influenza A PCR NEGATIVE (Negative); Influenza B PCR NEGATIVE (Negative); Resp Syncy Virus RNA Qual PCR NEGATIVE (Negative); SARS COV2 PCR INHOUSE NEGATIVE (Negative)
[2024-10-05 17:10] LABS: Troponin-I High Sensitivity 11.1 ng/L (<3.5-17.0)
[2024-10-05 17:11] LABS: B Type Natriuretic Peptide 234 pg/mL (<100)
--- NOTE | 2024-10-05 17:30 | PC.NURSE ---
pt is alert and oriented, skin pwd, respirations even and unlabored, pt reports that on she started with abd pain and vomiting, and diarrhea, denies pain at this time but is still having some diarrhea and dry heaving, bowel sounds in 4 quadrants and slightly tender in the left lower with palpation.
[2024-10-05] MEDS: 0.9 % Sodium Chloride 500 ML IV ×2 (17:31→20:16)
[2024-10-05 17:48] LABS: Lactic Acid 1.6 mmol/L (0.5-2.0)
[2024-10-05 17:55] LABS: Alanine Aminotransferase 16 U/L (0-31); Albumin Level 3.8 g/dL (3.5-5.0); Aspartate Amino Transferase 25 U/L (5-31); Bilirubin Direct 0.5 mg/dL (0.0-0.5); Total Protein 7.7 g/dL (6.5-8.0)
[2024-10-05 18:11] LABS: Alkaline Phosphatase 104 U/L (39-117)
[2024-10-05] MEDS: iohexoL 350 MG/ML 100 ML INFUS..BTL IV (18:35)
--- OUTSIDE RECORDS SUMMARY | 2024-10-05 18:52 | XMS_ITS | Data Portability ---
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 Referral None recorded. Procedures None recorded. Surgeries None recorded. Imaging electromy ogram + nerve conductio n study - Diagnosis : EVALUATE LUE axillary nerve/del toid function vs CERVICAL RADICULOP ATHY, please schedule with Dr.Spellm kapadia or Dr.Marine Sarah mendoza 2024 025 [facility] [address], [place], [address], 09/26/2024 08:56:08 XR, shoulder, 2 or more view - L shoulder 4 view rm 214 2023 024 [facility], [address], [facility] [address], [place], [address], 06/28/2024 10:20:57 Medication Orders None recorded. Patient TargetsNo [...] record ed. [email or web address] Not Available 03/12 23:50:57 06/06/20 24 06/06/2024 XR, ileana valerie, 2 or more view [email or web address] ?Encry pted=s hAaTro YD8dLq bEUv6g %2BXZw aYqtaq 0bqfl% 2Fg9IQ a4ajBk vP9nXo QUaueC m3YtLR FvZlg JJ8mAn HZtai3 8e7807 AC0Kqa H%2BBU KSnKiQ trMwF INTERFACE [facility] [address], [place], [address], 06/06/2024 16:13:24 06/06/20 24 06/06/2024 XR, ileana padilla, 2 or more view [email or web address] ?Encry pted=s hAaTro YD8dLq bEUv6g %2BXZw aYqtaq 0bqfl% 2Fg9IQ a4ajBk vP9nXo QUaueC m3YtLR FvZlgJ JJ8mAn HZtai3 9w6710 AC0Kqa H%2BBU KSnKiQ trMwF INTERFACE [facility] [address], [place], [address], 06/06/2024 16:13:26 Result Notes None recorded. Problems Name Problem SNOMED Code Status Onset Date Resolution Date Notes Provider Name and Address Organization Details Recorded Time No complaints 120672110 Active Status : 'A'; Not Available [facility] 4 09:28:22 Problem Notes None recorded. Procedures Surgical [...] more view completed INTERFACE [facility] [address], [place], [address], 06/06/2024 16:13:24 06/06/2024 XR, shoulder, 2 or more view completed INTERFACE [facility] [address], [place], [address], 06/06/2024 16:13:26 Procedure Notes None recorded. Medical Equipment None Reported. Allergies Allergen ID Allergen Name Allergen Category Reaction Reaction Severity Criticality Documentation Date Start Date Code Code System Note Provider Name and Address Organization Details Recorded Time 614660 aspirin medicatio n rash Not available Not available 11/23/2023 1191 RxNorm JAMIE em [place] - [facility] 4 07:44:37 69184 sulfur medicatio n rash Not available Not available 10/12/20232022 25958 RxNorm Not Available [facility] 12:45:08 Medications Name Sig Start Date Stop [...] Updated DateTime 11/30/2023 165.1 cm 29.5 kg/m2 88077.85 g JAMIE OVERTON [facility] 11/30/2023 15:14:18 Date Recorded Body height Body mass index (BMI) Body weight Provider Name and Address Organization Details Last Updated DateTime 03/07/2024 165.1 cm 29.5 kg/m2 66347.85 g JAMIE OVERTON [facility] 03/07/2024 10:50:06 Date Recorded Body height Body mass index (BMI) Body weight Provider Name and Address Organization Details Last Updated DateTime 06/06/2024 165.1 cm 29.5 kg/m2 59347.85 g JAMIE OVERTON [facility] 06/06/2024 15:58:40 Date Recorded Body height Body mass index (BMI) Body weight Provider Name and Address Organization Details Last Updated DateTime 09/12/2024 165.1 cm 29.5 kg/m2 85202.85 g JAMIE OVERTON [facility] 09/12/2024 15:45:15 Social History None recorded. Functional Status None recorded. Mental Status None recorded. Family History Nothing Reported. Medical History Condition Response Allergies/Hayfever N Coronary Artery Disease N Breathing or lung disorders Y Anxiety/Depression N Emphysema N Nerve Disorders N Thyroid Problems N COPD N Pacemaker N Kidney/Bladder Problems N Anemia N Vascular Disease N Heart Trouble Y Gastrointestinal Disease N Heart Attack ([place]) N Cholesterol N Diabetes N Autoimmune disease [...] SNOMED-CT Code Diagnosis ICD10 Code Diagnosis Note [id number] MD Juan Bello [address] [place] [address] 11/30/2023 14:58:40 12/09/2023 09:14:47 Closed fracture proximal humerus, greater tuberosity 539662869 S42.252D [id number] MD Juan [address] [place] [address] 03/07/2024 10:38:39 04/05/2024 11:09:04 Left axillary neuropathy 0665140681 5841673 G56.92 [id number] MD [facility] [address] [address] [place] [address] 06/06/2024 15:34:21 06/28/2024 10:20:56 Pain of left shoulder joint 5012328074 2683083 M25.676 [id number] MD REGINA Bello [address] [place] [address] 09/12/2024 15:26:47 09/26/2024 08:56:08 Cervical radiculopathy 21530574 M54.12 Closed fra cture proximal humerus, greater tuberosity 109880162 S42.252D Health Concerns Section Related Observation LastModified by Organization Detai ls LastModified Time None Recorded Concern Status LastModified by Organization Details LastModified Time None Recorded Advance Directives Directive None Recorded Payers Encounter Date Sequence Insurance Name Policy Number Policy Joseph Covered Member ID Joseph Member ID Guarantor Name 11/30/2023 [facility] 03/07/2024 [facility] 06/06/2024 [facility] Chiquita Czeczot 09/12/2024 [facility] Czeczot Notes Date Note Type Note Provider Name and Address Organization Details Recorded Time 4 text/html Issue: Left greater tuberosity-fracture dislocation [...] the left shoulder ordered and obtained at [facility] 03/25/2023 were reviewed during the visit. These demonstrate evidence for greater tuberosity fracture with posterior superior displacement. Glenohumeral joint space and acromioclavicular interval distance well maintained. Posterior translation of the humeral head relative to the center the glenoid. A.c. joint space well preserved. Type II acromion. No significant glenohumeral arthrosis.EMG/NCS of the LUE performed at [facility] 06/16/2023 (Nicolas) reviewed on CIS: Electrodiagnostic findings [...] plexopathy less likely. C-spine MRI performed at [facility] 09/02/2023 independently reviewed by me on OrthoPACS [...] continue with light duty restrictions in the interim.[employer] speech recognition staffing rn software was used to create portions of this document. An attempt at proofreading has been made to minimize errors. Please call for corrections. Minal Ortiz MD [address] [place] [address] [address], [place], [address], [facility] - [facility] 11/30/2023 16:32:51 4 text/html Issue: Left [...] the left shoulder ordered and obtained at [facility] 03/25/2023 were reviewed during the visit. These demonstrate evidence for greater tuberosity fracture with posterior superior displacement. Glenohumeral joint space and acromiohumeral interval distance well maintained. Posterior translation of the humeral head relative to the center the glenoid. A.c. joint space well preserved. Type II acromion. No significant glenohumeral arthrosis.EMG/NCS of the LUE performed at [facility] 06/16/2023 (Nicolas) reviewed on CIS: Electrodiagnostic findings [...] plexopathy less likely. C-spine MRI performed at [facility] 09/02/2023 independently reviewed by me on OrthoPACS [...] the interim (no use of the left arm).[employer] speech recognition staffing rn software was used to create portions of this document. An attempt at proofreading has been made to minimize errors. Please call for corrections. Minal Ortiz MD [address] [place] [address] [address], [place], [address], [facility] 03/07/2024 11:11:03 4 text/html Issue: Left [...] the left shoulder ordered and obtained at [facility] today were reviewed during the visit. These [...] glenohumeral arthrosis.EMG/NCS of the LUE performed at [facility] 06/16/2023 (Nicolas) reviewed on CIS: Electrodiagnostic findings [...] plexopathy less likely. C-spine MRI performed at [facility] 09/02/2023 independently reviewed by me on OrthoPACS [...] permanent. No new x-rays necessary at next appointment.[facility] speech recognition staffing rn software was used to create portions of this document. An attempt at proofreading has been made to minimize errors. Please call for corrections. Minal Ortiz MD [address] [place] [address], [place], [address], [facility] - [facility] 06/06/2024 17:25:54 5 text/html Issue: Left greater [...] the left shoulder ordered and obtained at [facility] 06/06/2024 were reviewed during the visit. [...] glenohumeral arthrosis.EMG/NCS of the LUE performed at [facility] 06/16/2023 (Nicolas) reviewed on CIS: Electrodiagnostic findings [...] plexopathy less likely. C-spine MRI performed at [facility] 09/02/2023 independently reviewed by me on OrthoPACS [...] further information about potential nerve/muscle recovery on EMG/NCS.[facility] speech recognition staffing rn software was used to create portions of this document. An attempt at proofreading has been made to minimize errors. Please call for corrections. Minal Ortiz MD [address] [place], [place] [address]an[address] [address], [place], [address], [facility] - [facility] 09/12/2024 16:56:32 OBGyn Episode No OBEpisode recorded.
--- OUTSIDE RECORDS SUMMARY | 2024-10-05 18:52 | XMS_ITS | Encounter Summary ---
Author Organization [facility] Address [address] [place] [address] Care Team Providers Care Vein Pumper Name Role Phone Unavailable Primary Care Provider Unavailabl e Encounter Details Date Type Department Care Team (Late st Contact Info) Description 05/17/2024 10:14 AM EDT Hospital Encounter TH HISTORIC ENCOUNTERS EASTERN CONVERSION ONLY Jonn Michael MD [address] [place] [address] Social History Tobacco Use Types Packs/Day Years [...]
--- OUTSIDE RECORDS SUMMARY | 2024-10-05 18:52 | XMS_ITS | Clinical Summary ---
Author Organization [facility] Address [address] [place] [address] Phone Care Team Providers Care Clinical Applications Specialist Name Role Phone Yair Huff MD Primary Care Provider [phone] Encounters Date Type Department Care Team Description 07/12/2024 4:39 PM EST - 07/12/2024 11:59 PM EST Hospital Encounter [facility] Xray [address] [place] [address] Pain in right hip Discharge [...] Signed Date: 07/12/2024 18:11 ET Workstation ID: [id number] Transcribed By: Self Edit Transcribed Date: 07/12/2024 [...] Signed Date: 07/12/2024 18:11 ET Workstation ID: [id number] Transcribed By: Self Edit Transcribed Date: 07/12/2024 18:08 ET Gm Carroll DO IMG XR PROCEDURES Final Resu lt from Last 3 Months Insurance [employer] ABIGAIL RANGEL [address] [place] [address] Care Teams Clinical Applications Specialist Relationship Specialty Start Date End Date Yair Huff MD [address] [place] [address] Dr [address] [place] [address] PCP - General Internal Medicine 07/12/24
--- OUTSIDE RECORDS SUMMARY | 2024-10-05 18:52 | XMS_ITS | Clinical Summary ---
Author Organization [facility] Address [address] [place] [address] Care Team Providers Care Benefits Specialist Recruiter Name Role Phone Yair Huff MD Primary Care Provider [phone] Allergies Active Allergy Reactions Criticality Noted Date [...] age to complete this topic Care Teams Benefits Specialist Recruiter Relationship Specialty Start Date End Date Yair Huff MD [address] [place] [address] Dr Decker [place] [id number] PCP - General Internal Medicine 09/23/22
[2024-10-05] MEDS: ondansetron HCL 4 MG/2 ML VIAL IVPUSH (19:05)
--- NOTE | 2024-10-05 19:46 | PC.NURSE ---
provider aware of pt blood pressure at this time, orders as follow.
[2024-10-05] MEDS: carvediloL 25 MG TABLET PO (19:57)
[2024-10-05] MEDS: cefTRIAXone sodium 1 GM VIAL IVPUSH (20:14)
[2024-10-05] MEDS: metroNIDAZOLE/NS 500 MG/100 ML PIGGYBACK 100 MG IV (20:14)
--- NOTE | 2024-10-05 20:17 | PC.NURSE ---
per provider, okay to administer antibiotics without blood cultures. blood pressure continues to be elevated, provider aware.
[2024-10-05] MEDS: hydrALAZINE HCl 20 MG/ML VIAL IVPUSH (20:56)
--- NOTE | 2024-10-05 21:17 | PHA.MEDREC ---
Addendum entered by Jose Bailon [facility] 10/05/24 21:25: med rec reviewed Original Note: Pharmacy Consult ? Medication Reconciliation Pharmacy has completed the medication reconciliation. Spoke to patient to confirm med list. Patient states she no longer takes Ipratropium 0.5 mg-albuterol 3 mg, Turmeric 400 mg, and Vitamin E. Patient last took her medications 09/29/24.
--- NOTE | 2024-10-05 22:03 | PM.IMHP ---
History of Present Illness Date of Service: 10/05/24 Chief Complaint: Abd pain This is a 79-year-old with pertinent history of paroxysmal atrial fibrillation on Eliquis status post multiple ablations and cardioversions, congestive heart failure with preserved EF, pulmonary hypertension, CAD, hypertension, gastroesophageal reflux disease who presents to the emergency department for evaluation of abdominal pain and nausea. Patient states her symptoms started 5 days prior to presentation. She has been having right upper quadrant and epigastric pain which has been constant and associated with nausea. Patient states her PCP gave her medications for nausea and abdominal pain but her symptoms did not improve. She is unable to tolerate p.o. intake. Also had episodes of nonbloody emesis. No fever, chills, chest pain, palpitations, shortness of breath, changes in urinary or bowel habits. In the emergency department, imaging with acute cholecystitis. General surgery was consulted who requested admission to medicine team Review of Systems Constitutional: Constitutional: Reports fatigue and Reports poor appetite Cardiovascular: Cardiovascular: Reports no additional cardiovascular complaints Respiratory: Respiratory: Reports no additional respiratory complaints Gastrointestinal: Gastrointestinal: Reports abdominal pain, Reports nausea and Reports vomiting Genitourinary: Genitourinary: Reports no additional female genitourinary complaints Endocrine: Endocrine: Reports fatigue [facility] Medical History (HFpEF) heart failure with preserved ejection fraction Cardiac pacemaker in situ Permanent atrial fibrillation Paroxysmal atrial fibrillation Preoperative cardiovascular examination NSTEMI (non-ST elevated myocardial infarction) Pulmonary hypertension Chronic heart failure with preserved ejection fraction (HFpEF) Chronic heart failure with preserved ejection fraction (HFpEF) Cardiomyopathy Pulmonary hypertension Diastolic dysfunction History of cardiomyopathy HTN (hypertension) History of cardioversion Family History Father Cancer Mother Stroke Brother Atrial fibrillation Sister Cardiovascular disease Atrial fibrillation Surgical History S/P cardiac catheterization Hx of total hip arthroplasty Hx of cardiac cath Hx of hand surgery History of back surgery Social History Household Members: None Housing: House Do you presently have visiting nurse or other home services: No Unable to assess alcohol history related to: Unknown Alcohol intake: former Comment: pt refusing bed alarm Patient Tobacco Use Status: Never used Tobacco Smoked in Last 30 Days: No Second Hand Smoke Exposure: No Use of substances other than those prescribed or required for medical reasons: No Advance Directives: Yes Advance Directives on File: Yes Advance Directives Date on File: 12/18/22 service: No Current occupational status: retired Meds Allergies Allergy/AdvReac Type Severity Reaction Status Date / Time aspirin [ASPIRIN] Allergy Unknown RASH Verified 10/05/24 13:13 Sulfa (Sulfonamide Allergy Unknown RASH Verified 10/05/24 13:13 Antibiotics) [SULFA (SULFONAMIDE ANTIBIOTICS)] flecainide AdvReac Intermediate Dizziness Verified 10/05/24 13:13 amiodarone AdvReac Mild Dizziness Verified 10/05/24 13:13 Digitalis Glycosides AdvReac Confusion Verified 10/05/24 13:13 adhesives AdvReac Unknown Uncoded 05/19/24 12:28 Home Medications ?Medication ?Instructions ?Recorded ?Confirmed ?Last Taken ?Type montelukast 10 mg tablet 10 mg PO BEDTIME 05/16/20 10/05/24 09/29/24 History fexofenadine 180 mg tablet 180 mg PO DAILY 06/21/21 10/05/24 09/29/24 History (Shea Allergy) coenzyme Q10 100 mg tablet 100 mg PO DAILY 07/28/21 10/05/24 09/29/24 History magnesium 250 mg tablet 250 mg PO BEDTIME 07/28/21 10/05/24 09/29/24 History multivitamin 1 tab PO DAILY 07/28/21 10/05/24 09/29/24 History ascorbic acid (vitamin C) 500 mg 1,000 mg PO DAILY 09/26/22 10/05/24 09/29/24 History tablet furosemide 40 mg tablet 40 mg PO DAILY 09/26/22 10/05/24 09/29/24 History omeprazole 40 mg capsule,delayed 40 mg PO BEDTIME 09/26/22 10/05/24 09/29/24 History release gabapentin 300 mg capsule 600 mg PO BEDTIME 04/06/23 10/05/24 09/29/24 History cholecalciferol (vitamin D3) 25 25 mcg PO DAILY 09/03/23 10/05/24 09/29/24 History mcg (1,000 unit) capsule (Vitamin D3) diltiazem HCl 120 mg 120 mg PO DAILY 05/03/24 10/05/24 09/29/24 History capsule,extended release 24 hr meloxicam 15 mg tablet 15 mg PO DAILY 10/05/24 10/05/24 09/29/24 History ondansetron HCl 4 mg tablet 4 mg PO Q8H PRN nausea 10/05/24 10/05/24 Unknown History Physical Exam Vital Signs and Narrative: Vital Signs: Last Vital Signs Temp 98.5 F 10/05/24 19:39 Pulse 87 10/05/24 21:13 Resp 18 10/05/24 21:13 BP 142/57 H 10/05/24 21:32 Pulse Ox 95 10/05/24 19:39 O2 Del Method Room Air 10/05/24 19:39 BMI result Body Mass Index 28.0 Elderly female lying in bed in no distress Neck supple, no JVD Regular rate and rhythm, S1-S2 heard Regular breath sounds bilaterally, no wheezing or crackles appreciated Abdomen with right upper quadrant tenderness, no rigidity Patient is awake, alert and oriented x3 ; no focal motor deficit Psych: Normal mood No pedal edema Results Labs 10/05/24 13:38 10/05/24 13:38 Labs: Laboratory Results - last 24 hr 10/05/24 10/05/24 10/05/24 13:38 13:44 16:42 MCV 90.5 MCH 32.6 MCHC 36.0 H RDW 12.3 Plt Count 206 MPV 9.1 L Immature Gran % (Auto) 0.2 Neut % (Auto) 70.5 Lymph % (Auto) 17.0 L [place] % (Auto) 10.5 Eos % (Auto) 1.2 Baso % (Auto) 0.6 Lymph # (Auto) 1.4 [place] # (Auto) 0.9 Eos # (Auto) 0.1 Baso # (Auto) 0.1 Abs Immat Gran (auto) 0.02 Absolute Neuts (auto) 6.0 Absolute Nucleated RBC 0.000 Nucleated RBC % (auto) 0.0 Anion Gap 14 Estim Creat Clear Calc 59.5 Estimated GFR > 60 Random Glucose 128 H Lactic Acid Calcium 9.5 Magnesium 1.7 Total Bilirubin 2.1 H Direct Bilirubin AST 21 ALT 16 Alkaline Phosphatase 109 B-Natriuretic Peptide 234 H Total Protein 7.6 Albumin 4.0 Lipase 14 Urine Color Dark Yellow Urine Appearance Cloudy Urine pH 5.5 Ur Specific [place] 1.025 Urine Protein 300 (3+) H Urine Glucose (UA) Negative Urine Ketones Trace Urine Blood Large (3+) H Urine Nitrite Negative Ur Leukocyte Esterase Trace H Urine RBC >20 H Urine WBC 0-5 Ur Squamous Epith Cells 6-10 Urine Bacteria None Seen Hyaline Casts 3-5 Influenza Type A (PCR) NEGATIVE Influenza Type B (PCR) NEGATIVE RSV RNA Qual (PCR) NEGATIVE SARS-CoV-2 RNA (RT-PCR) NEGATIVE 10/05/24 17:30 MCV MCH MCHC RDW Plt Count MPV Immature Gran % (Auto) Neut % (Auto) Lymph % (Auto) [place] % (Auto) Eos % (Auto) Baso % (Auto) Lymph # (Auto) [place] # (Auto) Eos # (Auto) Baso # (Auto) Abs Immat Gran (auto) Absolute Neuts (auto) Absolute Nucleated RBC Nucleated RBC % (auto) Anion Gap Estim Creat Clear Calc Estimated GFR Random Glucose Lactic Acid 1.6 Calcium Magnesium Total Bilirubin 2.0 H Direct Bilirubin 0.5 AST 25 ALT 16 Alkaline Phosphatase 104 B-Natriuretic Peptide Total Protein 7.7 Albumin 3.8 Lipase Urine Color Urine Appearance Urine pH Ur Specific [place] Urine Protein Urine Glucose (UA) Urine Ketones Urine Blood Urine Nitrite Ur Leukocyte Esterase Urine RBC Urine WBC Ur Squamous Epith Cells Urine Bacteria Hyaline Casts Influenza Type A (PCR) Influenza Type B (PCR) RSV RNA Qual (PCR) SARS-CoV-2 RNA (RT-PCR) Assessment and Plan (1) Acute cholecystitis: Status: Acute Plan This is a 79-year-old with pertinent history of paroxysmal atrial fibrillation on Eliquis status post multiple ablations and cardioversions, congestive heart failure with preserved EF, pulmonary hypertension, CAD, hypertension, gastroesophageal reflux disease who presents to the emergency department for evaluation of abdominal pain and nausea. #. Acute cholecystitis: Will admit patient with IV Zosyn. Consulted General surgery, appreciate assistance. AST/ALT and alk-phos within normal limits. #. Paroxysmal atrial fibrillation: Rate controlled in the ER. Hold Eliquis until surgical evaluation #. Hypertension/congestive heart failure with preserved EF: Continue home antihypertensives and Lasix #. CAD: On high-intensity statin and beta-zayra Med rec pending DVT prophylaxis: SCDs Full code. Discussed with patient at bedside Admit as inpatient and will require two night minimum hospital stay for IV antibiotics (as above), which is not possible in a lesser acute setting. General surgery consult pending Quality Stroke Does the patient have a stroke diagnosis?: No VTE Prior VTE?: No VTE Risk Level:: Medical - moderate - high VTE Device Contraindication: N/A - Device Ordered VTE Drug Contraindication: Treatment Not Indicated
[2024-10-05] MEDS: Piperacillin Sodium/Tazobactam 4.5 GM in 0.9 % Sodium Chloride 100 ML IV (22:26)
[2024-10-05] MEDS: Melatonin 3 MG TABLET 6 MG PO (22:26)
[2024-10-06] MEDS: ondansetron HCL 4 MG/2 ML VIAL IVPUSH (00:41)
--- NOTE | 2024-10-06 00:44 | PC.NURSE ---
pt ambulatory to bathroom with ateady gait, reported on arrival back to room that she is nauseous. pt medicated per oct.
[2024-10-06 04:55] LABS: MANUAL DIFF FLAG NO
[2024-10-06 04:59] LABS: Basophils Percent Auto 0.4 % (0-2); Eosinophils Absolute Auto 0.1 X10*3/uL (0.0-0.4); Eosinophils Percent Auto 0.6 % (0-4); Hematocrit 43.4 % (37.0-47.0); Hemoglobin 15.5 g/dl (12.0-16.0); Imm Gran Abs Auto 0.04 X10*3/uL (0.00-0.03); Imm Gran Pct Auto 0.5 % (0.0-0.4); Lymphocytes Absolute Auto 1.5 X10*3/uL (1.2-4.9); Lymphocytes Percent Auto 18.3 % (20-40); Mean Corpuscular HGB Conc 35.7 g/dl (31.0-35.0); Mean Corpuscular Hemoglobin 32.5 pg (27.0-33.0); Mean Platelet Volume 9.5 fL (9.4-12.3); Monocytes Absolute Auto 0.9 X10*3/uL (0.1-1.2); Monocytes Percent Auto 10.8 % (2-11); Neutrophils Absolute Auto 5.9 x10*3/uL (2.0-8.3); Neutrophils Percent Auto 69.4 % (45-73); Platelet Count 189 X10*3/uL (160-400); Red Blood Count 4.77 X10*6/uL (4.20-5.50); Red Cell Distribution Width 12.3 % (11.0-16.0); White Blood Count 8.4 X10*3/uL (4.8-10.8)
[2024-10-06 05:10] LABS: Anion Gap 14 (12-20); Blood Urea Nitrogen 16 mg/dL (9-16); Calcium 8.9 mg/dL (8.4-10.2); Carbon Dioxide 19 mmol/L (22-29); Chloride 114 mmol/L (96-108); Creatinine Clr Calc Pharmacy 69.4; Estimated Glomerular Filt Rate > 60; Glucose Random 104 mg/dL (60-115); Sodium 144 mmol/L (135-145)
[2024-10-06] MEDS: Piperacillin Sodium/Tazobactam 4.5 GM in 0.9 % Sodium Chloride 100 ML IV ×3 (05:55→18:45)
[2024-10-06 07:55] VITALS: BP 164/88; PULSE 63; RESP 18; O2SAT 99
[2024-10-06] MEDS: 0.9 % Sodium Chloride Flush 3 ML SYRINGE IVFLUSH ×3 (08:16→20:23)
--- NOTE | 2024-10-06 08:26 | PM.CNGS ---
History of Present Illness Consult details Consult date: 10/06/24 Narrative: [age] year old female with multiple medical problems including CHF, atrial fibrillation on Eliquis, diastolic dysfunction pulmonary hypertension, admitted for abdominal pain and nausea. She says she has had some dry heaving for over a week now. She does state that she had this problem also sometime in May last year. She denies actually having vomiting. She does does admit to some vague abdominal pains. She says that her abdominal pain is all over. She also complains of multiple aches and pains. She has had no fever. She states she feels better this morning although admits to some dry heaves. Review of Systems Constitutional: Constitutional: Denies chills and Denies fever(s) Cardiovascular: Cardiovascular: Reports dyspnea and Reports dyspnea on exertion Respiratory: Respiratory: Reports dyspnea and Reports dyspnea on exertion Gastrointestinal: Gastrointestinal: Denies abdominal pain Genitourinary: Genitourinary: Denies difficulty voiding Musculoskeletal: Musculoskeletal: Reports back pain and Reports myalgias PMFSH Past Medical History Medical History (HFpEF) heart failure with preserved ejection fraction Cardiac pacemaker in situ Permanent atrial fibrillation Paroxysmal atrial fibrillation Preoperative cardiovascular examination NSTEMI (non-ST elevated myocardial infarction) Pulmonary hypertension Chronic heart failure with preserved ejection fraction (HFpEF) Chronic heart failure with preserved ejection fraction (HFpEF) Cardiomyopathy Pulmonary hypertension Diastolic dysfunction History of cardiomyopathy HTN (hypertension) History of cardioversion Family History Family History Father Cancer Mother Stroke Brother Atrial fibrillation Sister Cardiovascular disease Atrial fibrillation Surgical History Surgical History S/P cardiac catheterization Hx of total hip arthroplasty Hx of cardiac cath Hx of hand surgery History of back surgery Social History Social History Household Members: None Housing: House Do you presently have visiting nurse or other home services: No Unable to assess alcohol history related to: Unknown Alcohol intake: former Comment: pt refusing bed alarm Patient Tobacco Use Status: Never used Tobacco Second Hand Smoke Exposure: No Advance Directives Date on File: 12/18/22 service: No Current occupational status: retired Meds Allergies Allergy/AdvReac Type Severity Reaction Status Date / Time aspirin [ASPIRIN] Allergy Unknown RASH Verified 10/05/24 13:13 Sulfa (Sulfonamide Allergy Unknown RASH Verified 10/05/24 13:13 Antibiotics) [SULFA (SULFONAMIDE ANTIBIOTICS)] flecainide AdvReac Intermediate Dizziness Verified 10/05/24 13:13 amiodarone AdvReac Mild Dizziness Verified 10/05/24 13:13 Digitalis Glycosides AdvReac Confusion Verified 10/05/24 13:13 adhesives AdvReac Unknown Uncoded 05/19/24 12:28 Active Medications: Current Medications Acetaminophen (Acetaminophen 325 Mg Tablet) 650 mg PO Q6H PRN PRN Reason: Pain, Mild 1-3,fever,headache Calcium Carbonate (Calcium Carbonate 750 Mg Tab.Chew) 750 mg PO Q4H PRN PRN Reason: Heartburn Piperacillin Sod/Tazobactam (Sod 4.5 gm/ Sodium Chloride) 100 mls @ 200 mls/hr IV Q6H [facility] Last Infusion: 10/06/24 06:36 Dose: Infused Magnesium Hydroxide (Milk Of Magnesia 30 Ml Oral.Susp) 30 ml PO DAILY PRN PRN Reason: Constipation Melatonin (Melatonin 3 Mg Tablet) 6 mg PO BEDTIME PRN PRN Reason: Insomnia Last Admin: 10/05/24 22:26 Dose: 6 mg Ondansetron HCl (Ondansetron Hcl 4 Mg/2 Ml Vial) 4 mg IVPUSH Q8H PRN PRN Reason: Nausea and Vomiting Last Admin: 10/06/24 00:41 Dose: 4 mg Sodium Chloride (0.9 % Sodium Chloride Flush 3 Ml Syringe) 3 ml IVFLUSH [facility] Last Admin: 10/06/24 08:16 Dose: 3 ml Home Medications ?Medication ?Instructions ?Recorded ?Confirmed ?Last Taken ?Type montelukast 10 mg tablet 10 mg PO BEDTIME 05/16/20 10/05/24 09/29/24 History fexofenadine 180 mg tablet 180 mg PO DAILY 06/21/21 10/05/24 09/29/24 History (Shea Allergy) coenzyme Q10 100 mg tablet 100 mg PO DAILY 07/28/21 10/05/24 09/29/24 History magnesium 250 mg tablet 250 mg PO BEDTIME 07/28/21 10/05/24 09/29/24 History multivitamin 1 tab PO DAILY 07/28/21 10/05/24 09/29/24 History ascorbic acid (vitamin C) 500 mg 1,000 mg PO DAILY 09/26/22 10/05/24 09/29/24 History tablet furosemide 40 mg tablet 40 mg PO DAILY 09/26/22 10/05/24 09/29/24 History omeprazole 40 mg capsule,delayed 40 mg PO BEDTIME 09/26/22 10/05/24 09/29/24 History release gabapentin 300 mg capsule 600 mg PO BEDTIME 04/06/23 10/05/24 09/29/24 History cholecalciferol (vitamin D3) 25 25 mcg PO DAILY 09/03/23 10/05/24 09/29/24 History mcg (1,000 unit) capsule (Vitamin D3) diltiazem HCl 120 mg 120 mg PO DAILY 05/03/24 10/05/24 09/29/24 History capsule,extended release 24 hr meloxicam 15 mg tablet 15 mg PO DAILY 10/05/24 10/05/24 09/29/24 History ondansetron HCl 4 mg tablet 4 mg PO Q8H PRN nausea 10/05/24 10/05/24 Unknown History Physical Exam Vital Signs: Vital Signs: Last Vital Signs Temp 98.5 F 10/05/24 22:16 Pulse 63 10/06/24 07:55 Resp 18 10/06/24 07:55 BP 164/88 H 10/06/24 07:55 Pulse Ox 99 10/06/24 07:55 O2 Del Method Room Air 10/06/24 07:55 BMI result Body Mass Index 28.0 Results Labs 10/06/24 03:50 10/08/24 06:19 Labs: Abnormal lab results 10/05/24 10/05/24 10/05/24 Range/Units 13:38 13:44 16:42 Hgb 17.2 H (12.0-16.0) g/dl Hct 47.8 H (37.0-47.0) % MCHC 36.0 H (31.0-35.0) g/dl MPV 9.1 L (9.4-12.3) fL Immature Gran % (Auto) (0.0-0.4) % Lymph % (Auto) 17.0 L (20-40) % Abs Immat Gran (auto) (0.00-0.03) X10*3/uL Potassium (3.3-5.1) mmol/L Chloride 113 H (96-108) mmol/L Carbon Dioxide 19 L (22-29) mmol/L BUN 18 H (9-16) mg/dL Random Glucose 128 H (60-115) mg/dL Total Bilirubin 2.1 H (0.0-1.0) mg/dL B-Natriuretic Peptide 234 H (<100) pg/mL Urine Protein 300 (3+) H (Neg-Trace) mg/dL Urine Blood Large (3+) H (Negative) Ur Leukocyte Esterase Trace H (Negative) Urine RBC >20 H (0-2) /HPF 10/05/24 10/06/24 Range/Units 17:30 03:50 Hgb (12.0-16.0) g/dl Hct (37.0-47.0) % MCHC 35.7 H (31.0-35.0) g/dl MPV (9.4-12.3) fL Immature Gran % (Auto) 0.5 H (0.0-0.4) % Lymph % (Auto) 18.3 L (20-40) % Abs Immat Gran (auto) 0.04 H (0.00-0.03) X10*3/uL Potassium 3.0 L (3.3-5.1) mmol/L Chloride 114 H (96-108) mmol/L Carbon Dioxide 19 L (22-29) mmol/L BUN (9-16) mg/dL Random Glucose (60-115) mg/dL Total Bilirubin 2.0 H (0.0-1.0) mg/dL B-Natriuretic Peptide (<100) pg/mL Urine Protein (Neg-Trace) mg/dL Urine Blood (Negative) Ur Leukocyte Esterase (Negative) Urine RBC (0-2) /HPF Short CBC 10/05/24 10/06/24 Range/Units 13:38 03:50 WBC 8.5 8.4 (4.8-10.8) X10*3/uL Hgb 17.2 H 15.5 (12.0-16.0) g/dl Hct 47.8 H 43.4 (37.0-47.0) % Plt Count 206 189 (160-400) X10*3/uL BMP 10/05/24 10/06/24 13:38 03:50 Sodium 143 144 Potassium 3.4 3.0 L Chloride 113 H 114 H Carbon Dioxide 19 L 19 L BUN 18 H 16 Creatinine 0.77 0.66 Calcium 9.5 8.9 D Liver Function 10/05/24 10/05/24 Range/Units 13:38 17:30 Total Bilirubin 2.1 H 2.0 H (0.0-1.0) mg/dL Direct Bilirubin 0.5 (0.0-0.5) mg/dL AST 21 25 (5-31) U/L ALT 16 16 (0-31) U/L Alkaline Phosphatase 109 104 (39-117) U/L Albumin 4.0 3.8 (3.5-5.0) g/dL Urine 10/05/24 Range/Units 13:44 Urine Color Dark Yellow Urine Appearance Cloudy Urine pH 5.5 (5.0-9.0) Ur Specific [place] 1.025 (1.005-1.025) Urine Protein 300 (3+) H (Neg-Trace) mg/dL Urine Glucose (UA) Negative (Negative) mg/dL All other labs normal. Assessment and Plan (1) Acute cholecystitis: Status: Acute She is on Eliquis She also has multiple medical problems including CHF Abdominal exam is benign at this time Would hold Eliquis IV antibiotics for now Re-evaluate for possible cholecystectomy down the line She does not appear septic Procedures Date of Service Date of Service: 10/11/24
[2024-10-06 09:59] VITALS: PULSE 59; RESP 18; O2SAT 94
--- NOTE | 2024-10-06 11:56 | MHC.CM.PN ---
PT REPORTS SHE LIVES ALONE AND IS INDEPENDENT WITH CARE SHE HAS NO DME AND NO SERVICES, SHE SAYS HER DAUGHTERS ASSIST WITH ANYTHING SHE NEEDS AND ONE LIVES VERY CLOSE BY HCP ON FILE PCP: [facility] DELIVERED DCP: HOME NO SERVICES FAMILY TO TRANSPORT
--- NOTE | 2024-10-06 12:32 | PC.NURSE ---
pt refused potassium. she said she did not want the zofran and did not think it would help her take the potassium.
[2024-10-06 13:05] VITALS: BP 199/96; PULSE 64; RESP 18; TEMP 36.1; O2SAT 99
--- NOTE | 2024-10-06 13:14 | P.PNIM_ITS ---
Subjective Subjective Date of Service: 10/06/24 Interval History: Being followed for nausea, vomiting and abdominal pain of 5 days' duration. Feels better has dry heaves, denies abdominal pain, wishes to try clear liquids, denies fever, no chills, no shortness a breath, no headache or dizziness. Review of Systems All other system reviewed and are negative Physical Exam 2 Vital Signs: Vital Signs: Last Vital Signs Temp 97.0 F 10/06/24 13:05 Pulse 64 10/06/24 13:05 Resp 18 10/06/24 13:05 BP 199/96 H 10/06/24 13:05 Pulse Ox 99 10/06/24 13:05 O2 Del Method Room Air 10/06/24 13:05 BMI result Body Mass Index 28.0 Const: Other: General resting comfortably in no acute distress. Neck no JVD. CVS regular rate rhythm, Respiratory lungs clear to auscultation, no respiratory distress, no wheeze, no rhonchi. Gastrointestinal abdomen soft, non tender, bowel sounds audible, no guarding , no rigidity. Extremities no edema. Neuro non focal Skin no rash Objective Data Active Medications Acetaminophen (Acetaminophen 325 Mg Tablet) 650 mg PO Q6H PRN PRN Reason: Pain, Mild 1-3,fever,headache Calcium Carbonate (Calcium Carbonate 750 Mg Tab.Chew) 750 mg PO Q4H PRN PRN Reason: Heartburn Carvedilol (Carvedilol 25 Mg Tablet) 25 mg PO BID [facility]; Protocol Last Admin: 10/06/24 09:58 Dose: Not Given Documented By: ADDIE Non-Admin Reason: HR 59 Diltiazem HCl (Diltiazem Hcl Cd 120 Mg Cap.Er.Deg) 120 mg PO DAILY [facility]; Protocol Last Admin: 10/06/24 09:58 Dose: Not Given Documented By: ADDIE Non-Admin Reason: HR 59 Gabapentin (Gabapentin 300 Mg Capsule) 600 mg PO BEDTIME [facility] Piperacillin Sod/Tazobactam (Sod 4.5 gm/ Sodium Chloride) 100 mls @ 200 mls/hr IV Q6H [facility] Last Infusion: 10/06/24 10:44 Dose: Infused Documented By: ADDIE Magnesium Hydroxide (Milk Of Magnesia 30 Ml Oral.Susp) 30 ml PO DAILY PRN PRN Reason: Constipation Melatonin (Melatonin 3 Mg Tablet) 6 mg PO BEDTIME PRN PRN Reason: Insomnia Last Admin: 10/05/24 22:26 Dose: 6 mg Documented By: ANNIA Montelukast Sodium (Montelukast Sodium 10 Mg Tablet) 10 mg PO BEDTIME ROSENDA Omeprazole (Omeprazole 40 Mg Capsule.Dr) 40 mg PO BEDTIME [facility]ENDA Ondansetron HCl (Ondansetron Hcl 4 Mg/2 Ml Vial) 4 mg IVPUSH Q8H PRN PRN Reason: Nausea and Vomiting Last Admin: 10/06/24 00:41 Dose: 4 mg Documented By: ANNIA Sodium Chloride (0.9 % Sodium Chloride Flush 3 Ml Syringe) 3 ml IVFLUSH QSHIFT [facility]EN[facility] Last Admin: 10/06/24 08:16 Dose: 3 ml Documented By: ROCIO Labs 10/06/24 03:50 10/06/24 03:50 Labs: Laboratory Results - last 24 hr 10/05/24 10/05/24 10/05/24 13:38 13:44 16:42 MCV 90.5 MCH 32.6 MCHC 36.0 H RDW 12.3 Plt Count 206 MPV 9.1 L Immature Gran % (Auto) 0.2 Neut % (Auto) 70.5 Lymph % (Auto) 17.0 L [place] % (Auto) 10.5 Eos % (Auto) 1.2 Baso % (Auto) 0.6 Lymph # (Auto) 1.4 [place] # (Auto) 0.9 Eos # (Auto) 0.1 Baso # (Auto) 0.1 Abs Immat Gran (auto) 0.02 Absolute Neuts (auto) 6.0 Absolute Nucleated RBC 0.000 Nucleated RBC % (auto) 0.0 Anion Gap 14 Estim Creat Clear Calc 59.5 Estimated GFR > 60 Random Glucose 128 H Lactic Acid Calcium 9.5 Magnesium 1.7 Total Bilirubin 2.1 H Direct Bilirubin AST 21 ALT 16 Alkaline Phosphatase 109 B-Natriuretic Peptide 234 H Total Protein 7.6 Albumin 4.0 Lipase 14 Urine Color Dark Yellow Urine Appearance Cloudy Urine pH 5.5 Ur Specific [place] 1.025 Urine Protein 300 (3+) H Urine Glucose (UA) Negative Urine Ketones Trace Urine Blood Large (3+) H Urine Nitrite Negative Ur Leukocyte Esterase Trace H Urine RBC >20 H Urine WBC 0-5 Ur Squamous Epith Cells 6-10 Urine Bacteria None Seen Hyaline Casts 3-5 Influenza Type A (PCR) NEGATIVE Influenza Type B (PCR) NEGATIVE RSV RNA Qual (PCR) NEGATIVE SARS-CoV-2 RNA (RT-PCR) NEGATIVE 10/05/24 10/06/24 17:30 03:50 MCV 91.0 MCH 32.5 MCHC 35.7 H RDW 12.3 Plt Count 189 MPV 9.5 Immature Gran % (Auto) 0.5 H Neut % (Auto) 69.4 Lymph % (Auto) 18.3 L [place] % (Auto) 10.8 Eos % (Auto) 0.6 Baso % (Auto) 0.4 Lymph # (Auto) 1.5 [place] # (Auto) 0.9 Eos # (Auto) 0.1 Baso # (Auto) 0.0 Abs Immat Gran (auto) 0.04 H Absolute Neuts (auto) 5.9 Absolute Nucleated RBC 0.000 Nucleated RBC % (auto) 0.0 Anion Gap 14 Estim Creat Clear Calc 69.4 Estimated GFR > 60 Random Glucose 104 Lactic Acid 1.6 Calcium 8.9 D Magnesium Total Bilirubin 2.0 H Direct Bilirubin 0.5 AST 25 ALT 16 Alkaline Phosphatase 104 B-Natriuretic Peptide Total Protein 7.7 Albumin 3.8 Lipase Urine Color Urine Appearance Urine pH Ur Specific [place] Urine Protein Urine Glucose (UA) Urine Ketones Urine Blood Urine Nitrite Ur Leukocyte Esterase Urine RBC Urine WBC Ur Squamous Epith Cells Urine Bacteria Hyaline Casts Influenza Type A (PCR) Influenza Type B (PCR) RSV RNA Qual (PCR) SARS-CoV-2 RNA (RT-PCR) Assessment and Plan (1) Acute cholecystitis: Status: Acute (2) Permanent atrial fibrillation: Status: Acute Plan 79-year-old with pertinent history of paroxysmal atrial fibrillation on Eliquis status post multiple ablations and cardioversions, congestive heart failure with preserved EF, pulmonary hypertension, CAD, hypertension, gastroesophageal reflux disease who presents to the emergency department for evaluation of abdominal pain and nausea. #. Acute cholecystitis: Abdominal pain resolved no further vomiting, mild dry heaves, continue IV Zosyn, add clear liquid diet, case discussed with general surgery Normal LFTs, normal alk-phos, chronically elevated total bili unchanged. # acute hypokalemia will replete and follow labs #. Paroxysmal atrial fibrillation: Rate controlled , hold Eliquis for possible surgery. #. Hypertension/congestive heart failure with preserved EF: BNP at baseline, No acute COPD exacerbation, hold Lasix resume home medication Coreg 25 mg b.i.d., diltiazem 120 mg daily , hold Jardiance, follow BP #. CAD: Continue Lipitor 40 mg and Coreg DVT prophylaxis: SCDs Full code. Requires continued inpatient hospital stay for IV antibiotics (as above), which is not possible in a lesser acute setting. Quality Stroke Does the patient have a stroke diagnosis?: No VTE Prior VTE?: No VTE Risk Level:: Medical - moderate - high VTE Device Contraindication: N/A - Device Ordered VTE Drug Contraindication: Treatment Not Indicated
--- NOTE | 2024-10-06 15:06 | PM.EVENT ---
Event Note Date of Service: 10/06/24 Event Note: Seen on afternoon rounds She says she no longer has abdominal pain She says she feels much better overall No nausea or vomiting Abdomen is soft, benign, no significant tenderness, no Ordoñez's sign, no guarding, no rebound Would continue with antibiotics Imaging with CT scan suggest more of a chronic type of cholecystitis with no acute inflammatory changes around the gallbladder also, her main complaint was she was dry heaving a lot since yesterday Overall clinical picture seems to be equivocal at this time Family updated - discussed with her daughter Lina who agrees and is comfortable with the plan Time Spent With Patient Time: Total time managing care of this patient today ____ minutes.
[2024-10-06] MEDS: Potassium Chloride ER 20 MEQ TAB.ER.PRT PO (15:38)
[2024-10-06] MEDS: Potassium Chloride/H20 10 MEQ/100 ML PIGGYBACK 100 MEQ IV ×2 (15:39→17:15)
[2024-10-06 15:51] VITALS: BP 160/100
[2024-10-06 16:09] VITALS: PULSE 61; RESP 18; TEMP 36.1; O2SAT 96
[2024-10-06] MEDS: dilTIAZem HCL CD 120 MG CAP.ER.DEG PO (18:23)
--- NOTE | 2024-10-06 18:35 | PC.NURSE ---
BP 160/100. Carvedilol and Cardizem held this AM in ED for HR 59. Dr. Jalloh notified. Ordered to give cardizem now.
[2024-10-06 18:56] VITALS: BP 170/84; PULSE 62; RESP 18; TEMP 36.2; O2SAT 95
[2024-10-06] MEDS: Montelukast Sodium 10 MG TABLET PO (20:20)
[2024-10-06] MEDS: Omeprazole 40 MG CAPSULE.DR PO (20:20)
[2024-10-06] MEDS: Gabapentin 300 MG CAPSULE 600 MG PO (20:20)
[2024-10-06] MEDS: carvediloL 25 MG TABLET PO (20:20)
[2024-10-07] MEDS: Piperacillin Sodium/Tazobactam 4.5 GM in 0.9 % Sodium Chloride 100 ML IV ×4 (00:46→18:37)
[2024-10-07 03:40] VITALS: BP 190/88; PULSE 55; RESP 16; TEMP 36; O2SAT 95
--- NOTE | 2024-10-07 04:41 | PC.NURSE ---
0417- elevated blood pressure sent to Hospitalist on duty, [id number]/88 manually. Patient denied headache, dizziness, pain, or any discomforts, can only use right arm, will continue to monitor. BP med times were included in MD text. No new orders at this time.
[2024-10-07 05:30] VITALS: BP 172/82
[2024-10-07 07:24] VITALS: BP 158/78; PULSE 61; RESP 16; TEMP 36.4; O2SAT 95
[2024-10-07] MEDS: dilTIAZem HCL CD 120 MG CAP.ER.DEG PO (07:54)
[2024-10-07] MEDS: 0.9 % Sodium Chloride Flush 3 ML SYRINGE IVFLUSH ×3 (07:54→20:13)
[2024-10-07] MEDS: carvediloL 25 MG TABLET PO ×2 (07:54→20:10)
[2024-10-07] MEDS: Atorvastatin Calcium 40 MG TABLET PO (10:14)
--- NOTE | 2024-10-07 11:34 | PM.PNGS ---
Subjective Subjective Date of Service: 10/10/24 Interval history: Denies abdominal pain Says she feels well No nausea or vomiting Tolerating clear liquids well Physical Exam Vital Signs: Vital Signs: Last Vital Signs Temp 97.5 F 10/07/24 07:24 Pulse 61 10/07/24 07:24 Resp 16 10/07/24 07:24 BP 158/78 H 10/07/24 07:24 Pulse Ox 95 10/07/24 07:24 O2 Del Method Room Air 10/07/24 07:24 BMI result Body Mass Index 28.0 Const: Other: Looks well General: comfortable and no acute distress Resp: Effort & Inspection: normal respiratory effort Cardio: Rate: regular rate GI: Palpation (GI): Soft to palpation, not firm, nontender and no guarding Objective Data Active Medications Acetaminophen (Acetaminophen 325 Mg Tablet) 650 mg PO Q6H PRN PRN Reason: Pain, Mild 1-3,fever,headache Atorvastatin Calcium (Atorvastatin Calcium 40 Mg Tablet) 40 mg PO DAILY [facility] Last Admin: 10/07/24 10:14 Dose: 40 mg Documented By: JULIA Calcium Carbonate (Calcium Carbonate 750 Mg Tab.Chew) 750 mg PO Q4H PRN PRN Reason: Heartburn Carvedilol (Carvedilol 25 Mg Tablet) 25 mg PO BID [facility]; Protocol Last Admin: 10/07/24 07:54 Dose: 25 mg Documented By: JULIA Diltiazem HCl (Diltiazem Hcl Cd 120 Mg Cap.Er.Deg) 120 mg PO DAILY [facility]; Protocol Last Admin: 10/07/24 07:54 Dose: 120 mg Documented By: JULIA Gabapentin (Gabapentin 300 Mg Capsule) 600 mg PO BEDTIME [facility] Last Admin: 10/06/24 20:20 Dose: 600 mg Documented By: JASWINDER Piperacillin Sod/Tazobactam (Sod 4.5 gm/ Sodium Chloride) 100 mls @ 200 mls/hr IV Q6H [facility] Last Infusion: 10/07/24 07:01 Dose: Infused Documented By: JULIA Magnesium Hydroxide (Milk Of Magnesia 30 Ml Oral.Susp) 30 ml PO DAILY PRN PRN Reason: Constipation Melatonin (Melatonin 3 Mg Tablet) 6 mg PO BEDTIME PRN PRN Reason: Insomnia Last Admin: 10/05/24 22:26 Dose: 6 mg Documented By: ANNIA Montelukast Sodium (Montelukast Sodium 10 Mg Tablet) 10 mg PO BEDTIME [facility] Last Admin: 10/06/24 20:20 Dose: 10 mg Documented By: JASWINDER Omeprazole (Omeprazole 40 Mg Capsule.Dr) 40 mg PO BEDTIME [facility] Last Admin: 10/06/24 20:20 Dose: 40 mg Documented By: JASWINDER Ondansetron HCl (Ondansetron Hcl 4 Mg/2 Ml Vial) 4 mg IVPUSH Q8H PRN PRN Reason: Nausea and Vomiting Last Admin: 10/06/24 00:41 Dose: 4 mg Documented By: ANNIA Sodium Chloride (0.9 % Sodium Chloride Flush 3 Ml Syringe) [facility] Last Admin: 10/07/24 07:54 Dose: 3 ml Documented By: JULIA Labs 10/06/24 03:50 10/08/24 06:19 Procedures Date of Service Date of Service: 10/10/24 Progress Note: A&P Assessment and plan (1) Acute cholecystitis: Status: Acute Assessment and Plan: Symptoms have completely resolved Diagnosis is a little equivocal - she did not have significant right upper quadrant pain and main complaint was nausea and dry heaving Abdomen is soft and benign without any tenderness Diet as tolerated I had multiple discussions with her daughter - she does state that she would like to avoid surgery for her mother as much as possible considering her overall medical condition Antibiotics Time Spent With Patient Time: Total time managing care of this patient today ____ minutes. Quality Stroke Does the patient have a stroke diagnosis?: No VTE Prior VTE?: No VTE Risk Level:: Medical - moderate - high VTE Device Contraindication: N/A - Device Ordered VTE Drug Contraindication: Treatment Not Indicated
[2024-10-07] MEDS: Potassium Chloride ER 20 MEQ TAB.ER.PRT PO (12:05)
--- NOTE | 2024-10-07 12:18 | MHC.CM.PN ---
PER MD ROUNDS PATIENT NOT MEDICALLY CLEARED FOR DC. CM WILL CONTINUE TO FOLLOW.
[2024-10-07 13:18] LABS: Anion Gap 10 (12-20); Bilirubin Total 2.3 mg/dL (0.0-1.0); Blood Urea Nitrogen 12 mg/dL (9-16); Calcium 8.8 mg/dL (8.4-10.2); Carbon Dioxide 22 mmol/L (22-29); Chloride 113 mmol/L (96-108); Creatinine Clr Calc Pharmacy 70.6; Estimated Glomerular Filt Rate > 60; Glucose Random 99 mg/dL (60-115); Potassium 3.1 mmol/L (3.3-5.1); Sodium 142 mmol/L (135-145)
--- NOTE | 2024-10-07 14:17 | HO.PM.IMPN ---
Subjective Subjective Date of Service: 10/07/24 Interval History: Feeling better offers no acute complaints of nausea, no vomiting, no abdominal pain, no dry heaves currently on clear liquid diet. Review of Systems All other system reviewed and are negative. Physical Exam Vital Signs: Vital Signs: Last Vital Signs Temp 97.5 F 10/07/24 07:24 Pulse 61 10/07/24 07:24 Resp 16 10/07/24 07:24 BP 158/78 H 10/07/24 07:24 Pulse Ox 95 10/07/24 07:24 O2 Del Method Room Air 10/07/24 07:24 BMI result Body Mass Index 28.0 Const: Other: General resting comfortably in no acute distress. Neck no JVD. CVS regular rate rhythm, Respiratory lungs clear to auscultation, no respiratory distress, no wheeze, no rhonchi. Gastrointestinal abdomen soft, non tender, bowel sounds audible, no guarding , no rigidity. Extremities no edema. Neuro non focal Skin no rash Objective Data Active Medications Acetaminophen (Acetaminophen 325 Mg Tablet) 650 mg PO Q6H PRN PRN Reason: Pain, Mild 1-3,fever,headache Atorvastatin Calcium (Atorvastatin Calcium 40 Mg Tablet) 40 mg PO DAILY [facility] Last Admin: 10/07/24 10:14 Dose: 40 mg Documented By: JULIA Calcium Carbonate (Calcium Carbonate 750 Mg Tab.Chew) 750 mg PO Q4H PRN PRN Reason: Heartburn Carvedilol (Carvedilol 25 Mg Tablet) 25 mg PO BID [facility]; Protocol Last Admin: 10/07/24 07:54 Dose: 25 mg Documented By: JULIA Diltiazem HCl (Diltiazem Hcl Cd 120 Mg Cap.Er.Deg) 120 mg PO DAILY [facility]; Protocol Last Admin: 10/07/24 07:54 Dose: 120 mg Documented By: JULIA Gabapentin (Gabapentin 300 Mg Capsule) 600 mg PO BEDTIME [facility] Last Admin: 10/06/24 20:20 Dose: 600 mg Documented By: JASWINDER Piperacillin Sod/Tazobactam (Sod 4.5 gm/ Sodium Chloride) 100 mls @ 200 mls/hr IV Q6H [facility] Last Infusion: 10/07/24 12:38 Dose: Infused Documented By: JULIA Magnesium Hydroxide (Milk Of Magnesia 30 Ml Oral.Susp) 30 ml PO DAILY PRN PRN Reason: Constipation Melatonin (Melatonin 3 Mg Tablet) 6 mg PO BEDTIME PRN PRN Reason: Insomnia Last Admin: 10/05/24 22:26 Dose: 6 mg Documented By: ANNIA Montelukast Sodium (Montelukast Sodium 10 Mg Tablet) 10 mg PO BEDTIME [facility] Last Admin: 10/06/24 20:20 Dose: 10 mg Documented By: JASWINDER Omeprazole (Omeprazole 40 Mg Capsule.Dr) 40 mg PO BEDTIME [facility] Last Admin: 10/06/24 20:20 Dose: 40 mg Documented By: JASWINDER Ondansetron HCl (Ondansetron Hcl 4 Mg/2 Ml Vial) 4 mg IVPUSH Q8H PRN PRN Reason: Nausea and Vomiting Last Admin: 10/06/24 00:41 Dose: 4 mg Documented By: ANNIA Potassium Chloride (Potassium Chloride Er 20 Meq Tab.Er.Prt) 40 meq PO ONCE ONE Stop: 10/07/24 14:16 Sodium Chloride (0.9 % Sodium Chloride Flush 3 Ml Syringe) [facility] Last Admin: 10/07/24 07:54 Dose: 3 ml Documented By: JULIA Labs 10/06/24 03:50 10/07/24 12:53 Labs: Laboratory Results - last 24 hr 10/07/24 12:53 Anion Gap 10 L Estim Creat Clear Calc 70.6 Estimated GFR > 60 Random Glucose 99 Calcium 8.8 Total Bilirubin 2.3 H Assessment and Plan (1) Acute cholecystitis: Status: Acute (2) Permanent atrial fibrillation: Status: Acute Plan 79-year-old with pertinent history of paroxysmal atrial fibrillation on Eliquis status post multiple ablations and cardioversions, congestive heart failure with preserved EF, pulmonary hypertension, CAD, hypertension, gastroesophageal reflux disease who presents to the emergency department for evaluation of abdominal pain and nausea. #. Abdominal pain associated with nausea vomiting ddx Acute cholecystitis versus colitis: Abdominal pain resolved no further vomiting, nausea, continue IV Zosyn started on 10/05 Advance diet to low-fat, Normal LFTs, normal alk-phos, chronically elevated total bili slightly worsened 2.3 today Will obtain abdominal ultrasound for follow-up, repeat LFTs at a.m. If tolerate diet remained stable will transition to by mouth Augmentin and discharged home at a.m. # acute hypokalemia will replete and follow labs #. Paroxysmal atrial fibrillation: Rate controlled , resume Eliquis no plan for surgery #. Hypertension/congestive heart failure with preserved EF: BNP at baseline, No acute COPD exacerbation, hold Lasix, continue home medication Coreg 25 mg b.i.d., diltiazem 120 mg daily , hold Jardiance resume at DC follow BP #. CAD: Continue Lipitor 40 mg and Coreg DVT prophylaxis: SCDs Full code. Requires continued inpatient hospital stay for IV antibiotics (as above), which is not possible in a lesser acute setting. Quality Stroke Does the patient have a stroke diagnosis?: No VTE Prior VTE?: No VTE Risk Level:: Medical - moderate - high VTE Device Contraindication: N/A - Device Ordered VTE Drug Contraindication: Treatment Not Indicated
[2024-10-07] MEDS: Potassium Chloride ER 20 MEQ TAB.ER.PRT 40 MEQ PO (15:06)
[2024-10-07 15:56] VITALS: BP 159/83; PULSE 61; RESP 16; TEMP 36.3; O2SAT 96
[2024-10-07 19:01] VITALS: BP 148/74; PULSE 60; RESP 18; TEMP 36.4; O2SAT 93
[2024-10-07] MEDS: Montelukast Sodium 10 MG TABLET PO (20:10)
[2024-10-07] MEDS: Omeprazole 40 MG CAPSULE.DR PO (20:10)
[2024-10-07] MEDS: Gabapentin 300 MG CAPSULE 600 MG PO (20:10)
[2024-10-07] MEDS: Apixaban 5 MG TABLET PO (20:11)
[2024-10-08] MEDS: Piperacillin Sodium/Tazobactam 4.5 GM in 0.9 % Sodium Chloride 100 ML IV ×2 (00:30→06:51)
[2024-10-08 03:23] VITALS: BP 150/75; PULSE 63; RESP 16; TEMP 36.9; O2SAT 92
[2024-10-08] MEDS: 0.9 % Sodium Chloride Flush 3 ML SYRINGE IVFLUSH (07:32)
--- NOTE | 2024-10-08 07:48 | P.PNIM_ITS ---
Subjective Subjective Date of Service: 10/08/24 Interval History: Seen in follow-up for acute cholecystitis Interval history: Physical Exam 2 Vital Signs: Vital Signs: Last Vital Signs Temp 98.4 F 10/08/24 03:23 Pulse 63 10/08/24 03:23 Resp 16 10/08/24 03:23 BP 150/75 H 10/08/24 03:23 Pulse Ox 92 10/08/24 03:23 O2 Del Method Room Air 10/08/24 03:23 BMI result Body Mass Index 28.0 Objective Data Active Medications Acetaminophen (Acetaminophen 325 Mg Tablet) 650 mg PO Q6H PRN PRN Reason: Pain, Mild 1-3,fever,headache Apixaban (Apixaban 5 Mg Tablet) 5 mg PO BID [facility] Last Admin: 10/07/24 20:11 Dose: 5 mg Documented By: PETER Atorvastatin Calcium (Atorvastatin Calcium 40 Mg Tablet) 40 mg PO DAILY [facility] Last Admin: 10/07/24 10:14 Dose: 40 mg Documented By: JULIA Calcium Carbonate (Calcium Carbonate 750 Mg Tab.Chew) 750 mg PO Q4H PRN PRN Reason: Heartburn Carvedilol (Carvedilol 25 Mg Tablet) 25 mg PO BID [facility]; Protocol Last Admin: 10/07/24 20:10 Dose: 25 mg Documented By: PETER Diltiazem HCl (Diltiazem Hcl Cd 120 Mg Cap.Er.Deg) 120 mg PO DAILY [facility]; Protocol Last Admin: 10/07/24 07:54 Dose: 120 mg Documented By: JULIA Gabapentin (Gabapentin 300 Mg Capsule) 600 mg PO BEDTIME [facility] Last Admin: 10/07/24 20:10 Dose: 600 mg Documented By: PETER Piperacillin Sod/Tazobactam (Sod 4.5 gm/ Sodium Chloride) 100 mls @ 200 mls/hr IV Q6H [facility] Last Infusion: 10/08/24 07:33 Dose: Infused Documented By: CHEMA Magnesium Hydroxide (Milk Of Magnesia 30 Ml Oral.Susp) 30 ml PO DAILY PRN PRN Reason: Constipation Melatonin (Melatonin 3 Mg Tablet) 6 mg PO BEDTIME PRN PRN Reason: Insomnia Last Admin: 10/05/24 22:26 Dose: 6 mg Documented By: ANNIA Montelukast Sodium (Montelukast Sodium 10 Mg Tablet) 10 mg PO BEDTIME [facility] Last Admin: 10/07/24 20:10 Dose: 10 mg Documented By: EPTER Omeprazole (Omeprazole 40 Mg Marylou.) 40 mg PO BEDTIME [facility] Last Admin: 10/07/24 20:10 Dose: 40 mg Documented By: PETER Ondansetron HCl (Ondansetron Hcl 4 Mg/2 Ml Vial) 4 mg IVPUSH Q8H PRN PRN Reason: Nausea and Vomiting Last Admin: 10/06/24 00:41 Dose: 4 mg Documented By: ANNIA Sodium Chloride (0.9 % Sodium Chloride Flush 3 Ml Syringe) 3 ml IVFLUSH QSHIFT [facility] Last Admin: 10/08/24 07:32 Dose: 3 ml Documented By: CHEMA Labs 10/06/24 03:50 10/07/24 12:53 Labs: Laboratory Results - last 24 hr 10/07/24 12:53 Anion Gap 10 L Estim Creat Clear Calc 70.6 Estimated GFR > 60 Random Glucose 99 Calcium 8.8 Total Bilirubin 2.3 H Assessment and Plan Plan 79-year-old with pertinent history of paroxysmal atrial fibrillation on Eliquis status post multiple ablations and cardioversions, congestive heart failure with preserved EF, pulmonary hypertension, CAD, hypertension, gastroesophageal reflux disease who presents to the emergency department for evaluation of abdominal pain and nausea. #. Abdominal pain associated with nausea vomiting ddx Acute cholecystitis versus colitis: Abdominal pain resolved no further vomiting, nausea, continue IV Zosyn started on 10/05 Advance diet to low-fat, Normal LFTs, normal alk-phos, chronically elevated total bili slightly worsened 2.3 today Will obtain abdominal ultrasound for follow-up, repeat LFTs at a.m. If tolerate diet remained stable will transition to by mouth Augmentin and discharged home at a.m. # acute hypokalemia will replete and follow labs #. Paroxysmal atrial fibrillation: Rate controlled , resume Eliquis no plan for surgery #. Hypertension/congestive heart failure with preserved EF: BNP at baseline, No acute COPD exacerbation, hold Lasix, continue home medication Coreg 25 mg b.i.d., diltiazem 120 mg daily , hold Jardiance resume at DC follow BP #. CAD: Continue Lipitor 40 mg and Coreg DVT prophylaxis: SCDs Full code. Requires continued inpatient hospital stay for IV antibiotics (as above), which is not possible in a lesser acute setting. Quality Stroke Does the patient have a stroke diagnosis?: No VTE Prior VTE?: No VTE Risk Level:: Medical - moderate - high VTE Device Contraindication: N/A - Device Ordered VTE Drug Contraindication: Treatment Not Indicated
[2024-10-08 07:55] VITALS: BP 149/89; PULSE 61; RESP 16; TEMP 36.4; O2SAT 94
[2024-10-08 08:06] LABS: Alanine Aminotransferase 6 U/L (0-31); Albumin Level 3.1 g/dL (3.5-5.0); Alkaline Phosphatase 81 U/L (39-117); Anion Gap 14 (12-20); Aspartate Amino Transferase 27 U/L (5-31); Bilirubin Direct 0.4 mg/dL (0.0-0.5); Bilirubin Total 1.4 mg/dL (0.0-1.0); Blood Urea Nitrogen 12 mg/dL (9-16); Calcium 8.4 mg/dL (8.4-10.2); Carbon Dioxide 17 mmol/L (22-29); Chloride 116 mmol/L (96-108); Creatinine Clr Calc Pharmacy 66.5; Estimated Glomerular Filt Rate > 60; Glucose Random 126 mg/dL (60-115); Potassium 3.5 mmol/L (3.3-5.1); Sodium 143 mmol/L (135-145)
[2024-10-08] MEDS: Atorvastatin Calcium 40 MG TABLET PO (08:13)
[2024-10-08] MEDS: carvediloL 25 MG TABLET PO (08:14)
[2024-10-08] MEDS: dilTIAZem HCL CD 120 MG CAP.ER.DEG PO (08:14)
[2024-10-08] MEDS: Apixaban 5 MG TABLET PO (08:14)
--- NOTE | 2024-10-08 12:29 | PM.DS ---
DS: Providers Provider Date of Service: 10/08/24 Date of admission: 10/05/24 22:02 Date of discharge: 10/08/24 Primary care physician: Yair Huff MD Admitting clinician: Alee Coles Attending physician on admission: Alee Coles Consults: 10/05/24 22:02 Consult to General Surgery Routine Consulting Provider: [facility] Reason for consultation: acute cholecystitis Attending physician on discharge: [facility] Discharging clinician: Ashanti Hines DS: Diagnosis Discharge Diagnosis (1) Acute cholecystitis: Status: Acute (2) Permanent atrial fibrillation: Status: Acute DS: Summary Hospital Course Hospital Course: HPI on admission by Dr. Coles on 10/05: Chief Complaint: Abd pain This is a 79-year-old with pertinent history of paroxysmal atrial fibrillation on Eliquis status post multiple ablations and cardioversions, congestive heart failure with preserved EF, pulmonary hypertension, CAD, hypertension, gastroesophageal reflux disease who presents to the emergency department for evaluation of abdominal pain and nausea. Patient states her symptoms started 5 days prior to presentation. She has been having right upper quadrant and epigastric pain which has been constant and associated with nausea. Patient states her PCP gave her medications for nausea and abdominal pain but her symptoms did not improve. She is unable to tolerate p.o. intake. Also had episodes of nonbloody emesis. No fever, chills, chest pain, palpitations, shortness of breath, changes in urinary or bowel habits. In the emergency department, imaging with acute cholecystitis. General surgery was consulted who requested admission to medicine team Hospital Course: Patient admitted to med surg for management of acute cholecystitis. Total bilirubin initially elevated at 2.1, but ast/alt/alk phos within normal limits. General surgery was consulted and discussion was had with the patient and daughter who did not wish to pursue surgical intervention. Treated empirically with IV zosyn with full resolution of abd pain, nausea and vomiting. Diet was advanced and tolerated well. Ultrasound was repeated showing similar findings of sludge and gallstones with mild glalbladder wall thickening and trace pericholecystic fluid suspicious for acute and/or chronic cholecystitis. Given resolution of symptoms and tolerance of diet, patient will be discharged home on Augmentin 875 mg b.i.d. x7 days. She can follow-up outpatient with general surgery and PCP. She did develop a hypokalemia which was repleted with potassium of 3.5 on day of discharge. Bilirubin trended down to 1.4. Labs otherwise consistent with baseline/unremarkable. For paroxysmal atrial fibrillation she should continue Eliquis for anticoagulation as well as Coreg 25 mg twice daily and diltiazem 120 mg XL for rate control for heart failure and hypertension continue Coreg, diltiazem and may resume Jardiance on discharge. Continue Lasix. For coronary artery disease continue Lipitor and Coreg. Time Attestation Discharge Coordination Time (in mins): 40 Quality: Safe Use of Opioids Does Pt have an Active Cancer Diagnosis on the Problem List?: No Quality: Stroke Does the patient have a stroke diagnosis?: No Physical Exam Vital Signs: Vital Signs: Last Vital Signs Temp 97.5 F 10/08/24 07:55 Pulse 61 10/08/24 07:55 Resp 16 10/08/24 07:55 BP 149/89 H 10/08/24 07:55 Pulse Ox 94 10/08/24 07:55 O2 Del Method Room Air 10/08/24 07:55 BMI result Body Mass Index 28.0 DS: Data Data Completed and Pending Completed studies during hospitalization [Text1]: Procedures Excision of Cecum, Via Natural or Artificial Opening Endoscopic, Diagnostic (01/20/24) Replacement of Left Hip Joint, Femoral Surface with Synthetic Substitute, Uncemented, Open Approach (12/18/22) Jewish of Cardiac Rhythm, Single (09/10/22) Transfusion of Nonautologous Red Blood Cells into Peripheral Vein, Percutaneous Approach (12/18/22) Ultrasonography of Heart with Aorta, Transesophageal (07/27/21) Labs on day of discharge: Laboratory Results - last 24 hr 10/07/24 10/08/24 12:53 06:19 Sodium 142 143 Potassium 3.1 L 3.5 Chloride 113 H 116 H Carbon Dioxide 22 17 L Anion Gap 10 L 14 BUN 12 12 Creatinine 0.65 0.69 Estim Creat Clear Calc 70.6 66.5 Estimated GFR > 60 > 60 Random Glucose 99 126 H Calcium 8.8 8.4 Total Bilirubin 2.3 H 1.4 H Direct Bilirubin 0.4 AST 27 ALT 6 Alkaline Phosphatase 81 Total Protein 6.0 L Albumin 3.1 L Discharge Plan Discharge Anticipated Discharge Date/Time: 10/08/24 09:32 Patient Disposition: Home, Self-Care Discharge Diagnosis: Acute cholecystitis Referrals: Yair Huff MD [Primary Care Provider] - 1 Week Rustam Gerard MD [Physician] - 1 Week (Acute vs chronic cholecystitis) Discharge Medications: New amoxicillin-pot clavulanate 875-125 mg tablet 1 tab PO BID Qty: 14 0RF Continued Jardiance 10 mg tablet 10 mg PO DAILY 90 Days Qty: 90 3RF carvedilol 25 mg tablet 25 mg PO BID Qty: 60 5RF atorvastatin 40 mg tablet 40 mg PO DAILY Qty: 90 3RF Eliquis 5 mg tablet 5 mg PO BID Qty: 60 5RF coenzyme Q10 100 mg Tablet 100 mg PO DAILY multivitamin Tablet 1 tab PO DAILY magnesium 250 mg Tablet 250 mg PO BEDTIME ascorbic acid (vitamin C) 500 mg Tablet 1,000 mg PO DAILY omeprazole 40 mg Capsule,Delayed Release(Dr/Ec) 40 mg PO BEDTIME furosemide 40 mg Tablet 40 mg PO DAILY cholecalciferol (vitamin D3) [Vitamin D3] 25 mcg (1,000 unit) Capsule 25 mcg PO DAILY meloxicam 15 mg tablet 15 mg PO DAILY ondansetron HCl 4 mg tablet 4 mg PO Q8H PRN (Reason: nausea) montelukast 10 mg tablet 10 mg PO BEDTIME gabapentin 300 mg capsule 600 mg PO BEDTIME fexofenadine [Shea Allergy] 180 mg tablet 180 mg PO DAILY diltiazem HCl 120 mg capsule,extended release 24hr 120 mg PO DAILY Discharge Orders: Discharge Order (Routine); Ordered 10/08/24 Ordered By: Ashanti Hines Diet: Advance to usual diet Activity on Discharge: As tolerated Stand Alone Forms: Patient Portal Discharge page Print Language: South African Care Plan Goals: Continue antibiotics and follow up outpatient with PCP and general surgery Avoid fried/fatty foods Health Concerns: Acute cholecystitis Plan of Treatment: Take augmentin 875mg twice daily x14 doses, next dose due this evening Follow up with PCP and general surgery Assessment: See above. See discharge summary Patient Instructions: Cholecystitis (GEN), Low Fat Diet (DC) Discharge Date/Time: 10/08/24 12:56
--- NOTE | 2024-10-08 12:43 | MHC.CM.PN ---
PT CLEARED TO DC TODAY, HOME WITH NO SERVICES FAMILY TO TRANSPORT
== END 2024-10-08 12:56 | disposition home or self-care (01) | DRG 444 ==
LOC: HO.ED 20:01 → HO.EDOVER 22:18 → HO.S3 10-06 11:55
PROVIDERS: Hospitalist; Physician Assistant; Admitting Provider Student in an Organized Health Care Education/Training Program; Emergency Provider Student in an Organized Health Care Education/Training Program; PCP Family Medicine; Visit Provider Physician Assistant
DX: K80.12 Calculus of gallbladder with acute and chronic cholecystitis without obstruction (principal); I50.33 Acute on chronic diastolic (congestive) heart failure; I25.10 Atherosclerotic heart disease of native coronary artery without angina pectoris; I48.0 Paroxysmal atrial fibrillation; E87.6 Hypokalemia; I11.0 Hypertensive heart disease with heart failure; Z20.822 Contact with and (suspected) exposure to COVID-19; Z95.0 Presence of cardiac pacemaker; Z79.01 Long term (current) use of anticoagulants; Z79.899 Other long term (current) drug therapy
CPT/HCPCS: 0241U; 36415; 74177; 76705; 80048; 80053; 80076; 81001; 82247; 83605; 83690; 83735; 83880; 84484; 85025; 93005; 99285; J0360; J0696; J1836; J2405; J2543; J3480; Q9967

== ENCOUNTER → 2024-10-05 13:07 | Outpatient (BNV) | payer MEDICARE, SELFPAY | PROVIDERS: Admitting Provider Student in an Organized Health Care Education/Training Program; Emergency Provider Student in an Organized Health Care Education/Training Program; PCP Family Medicine; Visit Provider Internal Medicine Cardiovascular Disease | DX: R53.1 Weakness (principal); R94.31 Abnormal electrocardiogram [ECG] [EKG]; I48.21 Permanent atrial fibrillation | CPT/HCPCS: 93010 ==

== ENCOUNTER → 2024-10-05 16:24 | Outpatient (BNV) | payer MEDICARE, SELFPAY | PROVIDERS: Emergency Provider Student in an Organized Health Care Education/Training Program; PCP Family Medicine; Visit Provider Radiology Diagnostic Radiology | DX: K63.89 Other specified diseases of intestine (principal) | CPT/HCPCS: 74177 ==

== ENCOUNTER 2024-10-05 22:02 | Outpatient (BNV) | payer MEDICARE, SELFPAY | END 2024-10-07 16:59 | PROVIDERS: Admitting Provider Student in an Organized Health Care Education/Training Program; Emergency Provider Student in an Organized Health Care Education/Training Program; PCP Family Medicine; Visit Provider Radiology Diagnostic Radiology | DX: K80.20 Calculus of gallbladder without cholecystitis without obstruction (principal) | CPT/HCPCS: 76705 ==

== ENCOUNTER → 2024-10-05 22:02 | Outpatient (BNV) | payer MEDICARE, SELFPAY | PROVIDERS: Admitting Provider Student in an Organized Health Care Education/Training Program; Emergency Provider Student in an Organized Health Care Education/Training Program; PCP Family Medicine; Visit Provider Surgery | DX: K81.0 Acute cholecystitis (principal) | CPT/HCPCS: 99222; 99232; 99499 ==

== ENCOUNTER → 2024-10-05 22:02 | Outpatient (BNV) | payer MEDICARE, SELFPAY | PROVIDERS: Admitting Provider Student in an Organized Health Care Education/Training Program; Emergency Provider Student in an Organized Health Care Education/Training Program; PCP Family Medicine; Visit Provider Student in an Organized Health Care Education/Training Program | DX: K81.0 Acute cholecystitis (principal); I48.21 Permanent atrial fibrillation | CPT/HCPCS: 99222; 99233 ==

== ENCOUNTER 2024-10-13 08:40 | Outpatient (AMB) | payer MEDICARE, SELFPAY ==
--- NOTE | 2024-10-13 08:42 | MHC.OFFVIS ---
Vital Signs 10/13/24 08:48 Height 5 ft 5 in Weight 174 lb 2 oz BMI 29.0 Intake Visit Reasons: acute cholecystitis Intake Note: This patient [place] [facility] [place] for acute cholecystitis. Pt c/o; reports no recent gallbladder attacks, reports no changes to bowel habits, reports good appetite. Electronic Installer Required: No Accompanied by: Family/Other Allergies aspirin [ASPIRIN] Allergy (Unknown, Verified 10/13/24 08:49) RASH Sulfa (Sulfonamide Antibiotics) [SULFA (SULFONAMIDE ANTIBIOTICS)] Allergy (Unknown, Verified 10/13/24 08:49) RASH flecainide Adverse Reaction (Intermediate, Verified 10/13/24 08:49) Dizziness amiodarone Adverse Reaction (Mild, Verified 10/13/24 08:49) Dizziness Digitalis Glycosides Adverse Reaction (Verified 10/13/24 08:49) Confusion adhesives Adverse Reaction (Uncoded 10/13/24 08:49) Unknown HPI HPI acute cholecystitis: Details: [age] year old female with multiple medical problems including CHF, atrial fibrillation on Eliquis, diastolic dysfunction pulmonary hypertension here for follow-up for gallstones. I would seen her in the hospitalist inpatient consult for abdominal pain and nausea last October 06, 2024. She did have gallstones at that time but examination did not show tenderness or Ordoñez's sign. She admits to having had vague abdominal pains for several months. Her symptoms were equivocal for acute cholecystitis and she did not have significant pain or tenderness when he was following her. She was therefore discharged. We had discussions with her daughter and they had stated there preference to not do any surgical intervention for her at that time. She says she has been doing well since discharge last October 07. She denies any abdominal pain. She has good oral intake. She feels well overall She had a does admit to shortness of breath exertion and she says this is her baseline. She still drives but says she has limited level of function because of her shortness of breath with exertion [facility] Medical History (Updated 10/13/24 @ 09:04 by Rustam Gerard MD) Gallstones (HFpEF) heart failure with preserved ejection fraction Cardiac pacemaker in situ Permanent atrial fibrillation Paroxysmal atrial fibrillation Preoperative cardiovascular examination NSTEMI (non-ST elevated myocardial infarction) Pulmonary hypertension Chronic heart failure with preserved ejection fraction (HFpEF) Chronic heart failure with preserved ejection fraction (HFpEF) Cardiomyopathy Pulmonary hypertension Diastolic dysfunction History of cardiomyopathy HTN (hypertension) History of cardioversion Surgical History S/P cardiac catheterization Hx of total hip arthroplasty Hx of cardiac cath Hx of hand surgery History of back surgery Family History Father Cancer Mother Stroke Brother Atrial fibrillation Sister Cardiovascular disease Atrial fibrillation Social History Household Members: None Housing: House Do you presently have visiting nurse or other home services: No Unable to assess alcohol history related to: Unknown Alcohol intake: former Comment: pt refusing bed alarm Patient Tobacco Use Status: Never used Tobacco Second Hand Smoke Exposure: No Advance Directives Date on File: 12/18/22 service: No Current occupational status: retired Review of Systems Const Denies chills Card Denies chest pain, Reports dyspnea and Reports dyspnea on exertion Resp Denies cough, Reports dyspnea and Reports dyspnea on exertion GI Denies hematochezia and Denies change in bowel habits Denies hematuria Musc Denies back pain and Denies limited range of motion Neuro Denies focal weakness and Denies convulsions Psych Denies depression and Denies mood swings Physical Exam Const Other: Not short of breath General: comfortable and no acute distress Orientation/consciousness: patient oriented x3 Neck Neck: Yes no lymphadenopathy Resp Auscultation: clear to auscultation bilaterally Cardio Rhythm: regular rhythm GI Other: No Ordoñez's sign Palpation (GI): Soft to palpation, nontender and no guarding Neuro General: patient oriented x3 Assessment & Plan Assessment & Plan (1) Gallstones: Code(s): K80.20 - Calculus of gallbladder without cholecystitis without obstruction Category: Medical Plan: She had some nausea and abdominal pain last week and was admitted for question of acute cholecystitis. Her pain had resolved soon as she was admitted Currently she feels well overall with regards to her abdomen. She denies any abdominal pain. She denies any nausea or vomiting. She has good oral intake. I have had long discussions with her as well as her daughters Lina and Lucretia. I did explain the option of proceeding with cholecystectomy in view of the presence of her gallstones. I reviewed the technique of the procedure as well as the risks, benefits, and alternatives. However he was stand that she does present with significant perioperative risk because of her CHF and excisional dyspnea. The would like to hold off on any surgical intervention as much as possible I did tell him that she can call the office or schedule for follow-up down the line if they have any questions. Coding Level of Care Code Est Pt Level 3 (54318) Diagnoses Gallstones K80.20
[2024-10-13 08:48] VITALS: BMI 29.0
--- OUTSIDE RECORDS SUMMARY | 2024-10-13 09:12 | XMS_ITS | Clinical Summary ---
Author Organization [facility] Address [address] [place] [address] Phone Care Team Providers Care Lithograph Press Operator Name Role Phone Yair Huff MD Primary Care Provider [phone] Social History Tobacco Use Types Packs/Day Years [...] - 1-dose 75+ series) 2019 COVID-19 Vaccine (1 - 2023-2 5 season) 2024 Influenza Vaccine [...] on patient's age to complete this topic Insurance [employer] ABIGAIL [address] [place] [address] Care Teams Lithograph Press Operator Relationship Specialty Start Date End Date Yair Huff MD [address] [place] [address] [address] [place] [address] PCP - General Internal Medicine 07/12/24
--- OUTSIDE RECORDS SUMMARY | 2024-10-13 09:12 | XMS_ITS | Encounter Summary ---
Author Organization [facility] Address [address] [place] [address] Care Team Providers Care General Handling Supervisor Name Role Phone Unavailable Primary Care Provider Unavailabl e Encounter Details Date Type Department Care Team (Late st Contact Info) Description 05/17/2024 10:14 AM EDT Hospital Encounter TH HISTORIC ENCOUNTERS EASTERN CONVERSION ONLY Jonn Michael MD [address] [place] [id number] Social History Tobacco Use Types Packs/Day Years [...]
--- OUTSIDE RECORDS SUMMARY | 2024-10-13 09:12 | XMS_ITS | Data Portability ---
Author Organization [place] - [facility], [facility] Address [address] [place] [address] Care Team Providers Care Electric Truck Operator Name Role Phone BJ THURSTON Primary Care Provider CHEYENNE FABIAN Chemical Laboratory Technician [phone] Assessment Encounter Date Assessment Date Assessment LastModified [...] kapadia or Dr.Marine Sarah mendoza 2024 025 [facility] [address], [place], [address], 09/26/2024 08:56:08 XR, shoulder, 2 or more view - L shoulder 4 view rm 214 2023 024 [facility], [address], [facility] [address], [place], [address], 06/28/2024 10:20:57 Medication Orders None recorded. Patient [...] a4ajBk vP9nXo QUaueC m3YtLR FvZlg JJ8mAn HZtai3 [id number] AC0Kqa H%2BBU KSnKiQ trMwF INTERFACE [facility] [address], [place], [address], 06/06/2024 16:13:24 06/06/20 24 06/06/2024 XR, ileana padilla, 2 or more view http:/ [email or web address] ?Encry pted=s hAaTro YD8dLq bEUv6g %2BXZw aYqtaq 0bqfl% 2Fg9IQ a4ajBk vP9nXo QUaueC m3YtLR FvZlgJ JJ8mAn HZtai3 5i3373 AC0Kqa H%2BBU KSnKiQ trMwF INTERFACE [facility] [address], [place], [address], 06/06/2024 16:13:26 Result Notes None recorded. Problems Name Problem SNOMED Code Status Onset Date Resolution Date Notes Provider Name and Address Organization Details Recorded Time No complaints 404567014 Active Status : 'A'; Not Available [facility] 4 09:28:22 Problem Notes None recorded. Procedures [...] more view completed INTERFACE [facility] [address], [place], [address], 06/06/2024 16:13:24 06/06/2024 XR, shoulder, 2 or more view completed INTERFACE [facility] [address], [place], [address], 06/06/2024 16:13:26 Procedure Notes None recorded. Medical Equipment None Reported. Allergies Allergen ID Allergen Name Allergen Category Reaction Reaction Severity Criticality Documentation Date Start Date Code Code System Note Provider Name and Address Organization Details Recorded Time 306933 aspirin medicatio n rash Not available Not available 11/23/2023 1191 RxNorm JAMIE em [place] - [facility] 4 07:44:37 42509 sulfur medicatio n rash Not available Not available 10/12/20232022 43217 RxNorm Not Available [facility] 12:45:08 Medications Name Sig Start Date Stop [...] Updated DateTime 11/30/2023 165.1 cm 29.5 kg/m2 94830.85 g JAMIE OVERTON [facility] 11/30/2023 15:14:18 Date Recorded Body height Body mass index (BMI) Body weight Provider Name and Address Organization Details Last Updated DateTime 03/07/2024 165.1 cm 29.5 kg/m2 63487.85 g JAMIE OVERTON [facility] 03/07/2024 10:50:06 Date Recorded Body height Body mass index (BMI) Body weight Provider Name and Address Organization Details Last Updated DateTime 06/06/2024 165.1 cm 29.5 kg/m2 58633.85 g JAMIE OVERTON [facility] 06/06/2024 15:58:40 Date Recorded Body height Body mass index (BMI) Body weight Provider Name and Address Organization Details Last Updated DateTime 09/12/2024 165.1 cm 29.5 kg/m2 13651.85 g JAMIE OVERTON [facility] 09/12/2024 15:45:15 Social History None recorded. Functional Status None recorded. Mental Status None recorded. Family History Nothing Reported. Medical History Condition Response Allergies/Hayfever N Coronary Artery Disease N Anxiety/Depression N Breathing or lung disorders Y Emphysema N Nerve Disorders N Thyroid Problems N COPD N Pacemaker N Anemia N Kidney/Bladder Problems N Vascular Disease N Heart Trouble Y Heart Attack ([place]) N Gastrointestinal Disease N Cholesterol N Diabetes [...] SNOMED-CT Code Diagnosis ICD10 Code Diagnosis Note [id number] MD Juan [address]ello [address] [place] [address] 11/30/2023 14:58:40 12/09/2023 09:14:47 Closed fracture proximal humerus, greater tuberosity 100931975 S42.252D [id number] MD Juan Bello [address] [place] [address] 03/07/2024 10:38:39 04/05/2024 11:09:04 Left axillary neuropathy 1549322390 4085340 G56.92 [id number] MD Juan [address] [place] [address] 06/06/2024 15:34:21 06/28/2024 10:20:56 Pain of left shoulder joint 4836435952 0272557 M25.789 [id number] MD REGINA Bello [address] [place] [address] 09/12/2024 15:26:47 09/26/2024 08:56:08 Cervical radiculopathy 66297091 M54.12 Closed fra cture proximal humerus, greater tuberosity 246354518 S42.252D Health Concerns Section Related Observation LastModified by Organization Detai ls LastModified Time None Recorded Concern Status LastModified by Organization Details LastModified Time None Recorded Advance Directives Directive None Recorded Payers Encounter Date Sequence Insurance Name Policy Number Policy Joseph Covered Member ID Joseph Member ID Guarantor Name 11/30/2023 [facility]07/2024 [facility]/06/2024 [facility] Czeczot 09/12/2024 [facility] Notes Date Note Type Note Provider [...] the left shoulder ordered and obtained at [facility] 03/25/2023 were reviewed during the visit. These demonstrate evidence for greater tuberosity fracture with posterior superior displacement. Glenohumeral joint space and acromioclavicular interval distance well maintained. Posterior translation of the humeral head relative to the center the glenoid. A.c. joint space well preserved. Type II acromion. No significant glenohumeral arthrosis.EMG/NCS of the LUE performed at [facility] 06/16/2023 (Nicolas) reviewed on CIS: Electrodiagnostic findings [...] plexopathy less likely. C-spine MRI performed at [facility] 09/02/2023 independently reviewed by me on OrthoPACS [...] continue with light duty restrictions in the interim.Short Fuze speech recognition field attendant software was used to create portions of this document. An attempt at proofreading has been made to minimize errors. Please call for corrections. Minal Ortiz MD [address] [place] [address] [address], [place], [address], [facility] - [facility] 11/30/2023 16:32:51 4 text/html Issue: Left [...] the left shoulder ordered and obtained at [facility] 03/25/2023 were reviewed during the visit. These demonstrate evidence for greater tuberosity fracture with posterior superior displacement. Glenohumeral joint space and acromiohumeral interval distance well maintained. Posterior translation of the humeral head relative to the center the glenoid. A.c. joint space well preserved. Type II acromion. No significant glenohumeral arthrosis.EMG/NCS of the LUE performed at [facility] 06/16/2023 (Nicolas) reviewed on CIS: Electrodiagnostic findings [...] plexopathy less likely. C-spine MRI performed at [facility] 09/02/2023 independently reviewed by me on OrthoPACS [...] the interim (no use of the left arm).Short Fuze speech recognition field attendant software was used to create portions of this document. An attempt at proofreading has been made to minimize errors. Please call for corrections. Minal Ortiz MD [address] [place] [address] [address], [place], [address], [facility] 03/07/2024 11:11:03 4 text/html Issue: Left [...] the left shoulder ordered and obtained at [facility] today were reviewed during the visit. These [...] glenohumeral arthrosis.EMG/NCS of the LUE performed at [facility] 06/16/2023 (Nicolas) reviewed on CIS: Electrodiagnostic findings [...] plexopathy less likely. C-spine MRI performed at [facility] 09/02/2023 independently reviewed by me on OrthoPACS [...] permanent. No new x-rays necessary at next appointment.[facility] speech recognition field attendant software was used to create portions of this document. An attempt at proofreading has been made to minimize errors. Please call for corrections. Minal Ortiz MD [address] [place] [address], [place], [address], [facility] 06/06/2024 17:25:54 5 text/html [...] the left shoulder ordered and obtained at [facility] 06/06/2024 were reviewed during the visit. These [...] glenohumeral arthrosis.EMG/NCS of the LUE performed at [facility] 06/16/2023 (Nicolas) reviewed on CIS: Electrodiagnostic findings [...] plexopathy less likely. C-spine MRI performed at [facility] 09/02/2023 independently reviewed by me on OrthoPACS [...] further information about potential nerve/muscle recovery on EMG/NCS.[facility] speech recognition field attendant software was used to create portions of this document. An attempt at proofreading has been made to minimize errors. Please call for corrections. Minal Ortzi MD [address] [place], [place] [address] [address], [place], [address], [facility] - [facility] 09/12/2024 16:56:32 OBGyn Episode No OBEpisode recorded.
--- OUTSIDE RECORDS SUMMARY | 2024-10-13 09:12 | XMS_ITS | Clinical Summary ---
Author Organization [facility] Address [address] [place] [address] Care Team Providers Care Nylon Mender Name Role Phone Yair Huff MD Primary Care Provider [phone] Allergies Active Allergy Reactions Criticality Noted Date [...] age to complete this topic Care Teams Nylon Mender Relationship Specialty Start Date End Date Yair Huff MD [address] [place] [address] [address] [place] [id number] PCP - General Internal Medicine 09/23/22
== END 2024-10-13 09:08 | disposition home or self-care (01) ==
PROVIDERS: PCP Family Medicine; Visit Provider Surgery
DX: K80.20 Calculus of gallbladder without cholecystitis without obstruction (principal)
CPT/HCPCS: 99213

== ENCOUNTER → 2024-10-13 08:40 | Outpatient (BNVA) | payer MEDICARE, SELFPAY | PROVIDERS: PCP Family Medicine; Visit Provider Surgery | DX: K80.20 Calculus of gallbladder without cholecystitis without obstruction (principal) | CPT/HCPCS: 99212 ==

== ENCOUNTER 2024-11-01 14:46 | Outpatient (AMB) | payer MEDICARE, SELFPAY ==
[2024-11-01 14:48] VITALS: BP 130/80; PULSE 65; BMI 29.3
--- NOTE | 2024-11-01 14:48 | A.OFFVIS_ITS ---
Vital Signs 11/01/24 14:48 Height 5 ft 5 in Weight 176 lb 5.917 oz BMI 29.3 BP 130/80 Blood Pressure Location Lt brachial Position Sitting Pulse 65 Intake Visit Reasons: 6 mth f/up w/ medtronic ck Intake Note: 6 month follow-up with medtronic check feeling ok Information Assurance Analyst Required: No Allergies aspirin [ASPIRIN] Allergy (Unknown, Verified 10/13/24 08:49) RASH Sulfa (Sulfonamide Antibiotics) [SULFA (SULFONAMIDE ANTIBIOTICS)] Allergy (Unknown, Verified 10/13/24 08:49) RASH flecainide Adverse Reaction (Intermediate, Verified 10/13/24 08:49) Dizziness amiodarone Adverse Reaction (Mild, Verified 10/13/24 08:49) Dizziness Digitalis Glycosides Adverse Reaction (Verified 10/13/24 08:49) Confusion adhesives Adverse Reaction (Uncoded 10/13/24 08:49) Unknown Medication List - Last Reconciled 11/01/24 by Franco Brennan MD apixaban (Eliquis) 5 mg PO BID ascorbic acid (vitamin C) 1,000 mg PO DAILY atorvastatin 40 mg PO DAILY carvedilol 25 mg PO BID cholecalciferol (vitamin D3) (Vitamin D3) 25 mcg PO DAILY coenzyme Q10 100 mg PO DAILY diltiazem HCl CD 120 mg PO DAILY empagliflozin (Jardiance) 10 mg PO DAILY 90 days fexofenadine (Shea Allergy) 180 mg PO DAILY furosemide 40 mg PO DAILY gabapentin 600 mg PO BEDTIME magnesium 250 mg PO BEDTIME meloxicam 15 mg PO DAILY montelukast 10 mg PO BEDTIME multivitamin 1 tab PO DAILY omeprazole 40 mg PO BEDTIME ondansetron HCl 4 mg PO Q8H PRN HPI Comments Details: Chiquita comes for follow-up of her heart failure as well as atrial fibrillation. She was recently admitted with acute cholecystitis manage conservatively. From cardiac perspective she has been doing well. She denies any symptoms of significant shortness of breath, orthopnea, PND. She was taking her diuretic as well as Jardiance. She is concerned about the cost of the medications. She has no bleeding issues or neurologic events. She maintains activity level as tolerated. No lightheadedness, syncope. No prolonged palpitation irregular heartbeat. [facility] Medical History (Updated 11/01/24 @ 15:08 by Franco Brennan MD) Permanent atrial fibrillation Gallstones (HFpEF) heart failure with preserved ejection fraction Cardiac pacemaker in situ Paroxysmal atrial fibrillation Preoperative cardiovascular examination NSTEMI (non-ST elevated myocardial infarction) Pulmonary hypertension Chronic heart failure with preserved ejection fraction (HFpEF) Chronic heart failure with preserved ejection fraction (HFpEF) Cardiomyopathy Pulmonary hypertension Diastolic dysfunction History of cardiomyopathy HTN (hypertension) History of cardioversion Surgical History S/P cardiac catheterization Hx of total hip arthroplasty Hx of cardiac cath Hx of hand surgery History of back surgery Family History Father Cancer Mother Stroke Brother Atrial fibrillation Sister Cardiovascular disease Atrial fibrillation Social History Household Members: None Housing: House Do you presently have visiting nurse or other home services: No Unable to assess alcohol history related to: Unknown Alcohol intake: former Comment: pt refusing bed alarm Patient Tobacco Use Status: Never used Tobacco Second Hand Smoke Exposure: No Advance Directives Date on File: 12/18/22 service: No Current occupational status: retired Review of Systems Const Denies chills, Denies fatigue, Denies fever(s), Denies frequent falls, Denies weakness, Denies weight gain and Denies weight loss ENT Denies dizziness Card Denies chest pain, Denies leg edema, Denies lightheadedness, Denies palpitations, Denies dyspnea, Denies dyspnea on exertion, Denies orthopnea and Denies other (loss of consciousness) Resp Denies cough, Denies dyspnea and Denies dyspnea on exertion GI Denies hematochezia and Denies change in stool character Musc Denies abnormal gait, Denies muscle weakness, Denies numbness, Denies radiating pain into limb and Denies tingling Neuro Denies abnormal gait, Denies dizziness, Denies frequent falls, Denies numbness, Denies tingling and Denies weakness Endo Denies fatigue and Denies palpitations Physical Exam Vital Signs: Last Vital Signs Pulse 65 11/01/24 14:48 BP 130/80 11/01/24 14:48 BMI result Body Mass Index 29.3 Const General: cooperative, comfortable, no acute distress, alert and awake Nutritional Appearance: overweight Orientation/consciousness: patient oriented x3 Limitations: other limitations (In a stretcher) Neck Neck: Yes trachea midline, Yes supple and Yes no JVD Chest Chest palpation & inspection: abnormal inspection of the chest kyphotic and scoliotic Resp Effort & Inspection: normal respiratory effort Auscultation: clear to auscultation bilaterally and diminished lung sounds Cardio Jugular venous distension: no JVD Palpation: normal PMI Rate: regular rate Rhythm: regular rhythm Heart sounds: S1 normal heart sound present and S2 normal heart sound present GI Auscultation: normal bowel sounds Skin General skin exam: no rashes or lesions noted Neuro General: patient oriented x3 and no focal motor deficits Extrem General: Yes no clubbing, cyanosis or edema Psych Appearance: grossly normal Office Procedures Cardiac Device Check Cardiac Device Check Details: Single-chamber Medtronic pacemaker in place. Programmed in VVIR at 60 beats per minute. Ventricular pacing almost 100% of the time. Ventricular pacing thresholds adequate and reprogrammed to enhance battery life. Ventricular sensing could not be checked. Pacing lead impedance is stable. Battery life is at about 13 years [id number]-YO Cardiac Device Check, leadless/single lead pacemaker Procedure code (CPT) selection complete Assessment & Plan Assessment & Plan (1) (HFpEF) heart failure with preserved ejection fraction: Code(s): I50.30 - Unspecified diastolic (congestive) heart failure Category: Medical Plan: Heart failure preserved ejection fraction, clinically euvolemic and well compensated doing well on current therapy. Continue current diuretic regimen with Lasix. Continue Jardiance for neurohormonal modulation. Daily weight monitoring avoidance salt loading was discussed. Continue maintain activity level as tolerated. Continue aggressive blood pressure control which is currently well optimized. (2) Permanent atrial fibrillation: Comment: Status post AV estiven ablation Code(s): I48.21 - Permanent atrial fibrillation Category: Medical Plan: Permanent atrial fibrillation has failed rhythm control approach and has undergone AV estiven ablation due to difficult control rate. Continue full oral anticoagulation, currently on Eliquis 5 mg b.i.d.. Semi annual renal function test should be pursued. Continue aggressive blood pressure control with current rate control. 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 Currently patient pacer dependent. Will follow up with echocardiogram in 6 months time. Will follow remotely every 3 months. Follow up in the clinic in 6 months time, sooner p.r.n.. Thank you for allowing me to partake in her care Coding Level of Care Code Est Pt Level 4 (78473) Complex EM visit Add On G2211 Diagnoses (HFpEF) heart failure with preserved ejection fraction I50.30 Permanent atrial fibrillation I48.21 Cardiac pacemaker in situ Z95.0 CPT Codes Cardiac Device Check - Cardiac Device 1: 59195-[place] Cardiac Device Check, leadless/single lead pacemaker ([id number])
--- OUTSIDE RECORDS SUMMARY | 2024-11-01 18:33 | XMS_ITS | Clinical Summary ---
Author Organization [facility] Address [address] [place] [address] Phone Care Team Providers Care Laborer Concrete Plant Name Role Phone Yair Huff MD Primary Care Provider [phone] Social History Tobacco Use Types Packs/Day Years [...] [place] [employer] ABIGAIL [address] [place] [address] Care Teams Laborer Concrete Plant Relationship Specialty Start Date End Date Yair Huff MD [address] [place] [address] Dr [address] [place] [address] PCP - General Internal Medicine 07/12/24
--- OUTSIDE RECORDS SUMMARY | 2024-11-01 18:33 | XMS_ITS | Clinical Summary ---
Author Organization [facility] Address [address] [place] [address] Care Team Providers Care Head Animal Keeper Name Role Phone Yair Huff MD Primary Care Provider [phone] Allergies Active Allergy Reactions Criticality Noted Date [...] age to complete this topic Care Teams Head Animal Keeper Relationship Specialty Start Date End Date Yair Huff MD [address] [place] [address] Dr Decker [place] [id number] PCP - General Internal Medicine 09/23/22
--- OUTSIDE RECORDS SUMMARY | 2024-11-01 18:33 | XMS_ITS | Encounter Summary ---
Author Organization [facility] Address [address] [place] [address] Care Team Providers Care Delivery Truck Driver Name Role Phone Unavailable Primary Care Provider Unavailabl e Encounter Details Date Type Department Care Team (Late st Contact Info) Description 05/17/2024 10:14 AM EDT Hospital Encounter TH [facility]ORIC ENCOUNTER[facility] CONVERSION ONLY Jonn Michael MD [address] [place] [id number] Social History Tobacco Use Types Packs/Day Years [...]
--- OUTSIDE RECORDS SUMMARY | 2024-11-01 18:33 | XMS_ITS | Data Portability ---
Author Organization [place] - [facility] Address [address] [place] [address] Care Team Providers Care Tube Cutter Name Role Phone BJ THURSTON Primary Care Provider [phone] CHYEENNE FABIAN Wing Coverer Assessment Encounter Date Assessment Date Assessment LastModified [...] kapadia or Dr.Marine Sarah mendoza 2024 025 [facility] [address], [place], [address], 10/25/2024 14:21:26 XR, shoulder, 2 or more view - L shoulder 4 view rm 214 2023 024 [email or web address], [address], [facility] [address], [place], [address], 06/28/2024 10:20:57 Medication Orders None recorded. Patient [...] Available 03/12 23:50:57 06/06/20 24 06/06/2024 XR, beatriceul valerie, 2 or more view [email or web address] ?Encry pted=s hAaTro YD8dLq bEUv6g %2BXZw aYqtaq 0bqfl% 2Fg9IQ a4ajBk vP9nXo QUaueC m3YtLR FvZl JJ8mAn HZtai3 6v5126 AC0Kqa H%2BBU KSnKiQ trMwF INTERFACE [facility] [address] [facility], [place], [address], 06/06/2024 16:13:24 06/06/20 24 06/06/2024 XR, ileana padilla, 2 or more view [email or web address] ?Encry pted=s hAaTro YD8dLq bEUv6g %2BXZw aYqtaq 0bqfl% 2Fg9IQ a4ajBk vP9nXo QUaueC m3YtLR FvZlgJ JJ8mAn HZtai3 8a8146 AC0Kqa H%2BBU KSnKiQ trMwF INTERFACE [facility] [address], [place], [address], 06/06/2024 16:13:26 10/26/19 25 10/20/2024 elect romyo gram + nerve condu ction study No observ ation record ed. [facility] [address] [place] [address], [address], 10/30/2024 10:10:34 Result Notes None recorded. Problems Name Problem SNOMED Code Status Onset Date Resolution Date Notes Provider Name and Address Organization Details Recorded Time No complaints [id number] Active Status : 'A'; Not Available [facility] 09:28:22 Problem Notes None recorded. Procedures Surgical History None recorded. Imaging Results Imaging Date Name Status LastModified by Organization Details LastModified Time 09/02/2023 MRI, cervical spine, w/o contrast completed [facility] Information not available 11/30/2023 16:37:43 06/16/2023 imaging/diagnostic result completed Information not available 04/08/2024 23:50:36 09/02/2023 imaging/diagnostic result completed Information not available 04/08/2024 23:50:39 06/16/2023 imaging/diagnostic result completed Information not available 04/08/2024 23:50:57 06/06/2024 XR, shoulder, 2 or more view completed INTERFACE [facility] [address], [place], [address], 06/06/2024 16:13:24 06/06/2024 XR, shoulder, 2 or more view completed INTERFACE [facility] [address], [place], [address], 06/06/2024 16:13:26 10/20/2024 electromyogram + nerve conduction study completed [facility] [address] [place], [address], 10/30/2024 10:10:34 Procedure Notes None recorded. Medical Equipment None Reported. Allergies Allergen ID Allergen Name Allergen Category Reaction Reaction Severity Criticality Documentation Date Start Date Code Code System Note Provider Name and Address Organization Details Recorded Time 618816 aspirin medicatio n rash Not available Not available 11/23/2023 1191 RxNorm JAMIE em [place] - [facility] 4 07:44:37 88912 sulfur medicatio n rash Not available Not available 10/12/20232022 06206 RxNorm Not Available [facility] 4 12:45:08 Medications Name Sig Start Date Stop [...] Updated DateTime 11/30/2023 165.1 cm 29.5 kg/m2 74695.85 g JAMIE OVERTON [place] - [facility] 11/30/2023 15:14:18 Date Recorded Body height Body mass index (BMI) Body weight Provider Name and Address Organization Details Last Updated DateTime 03/07/2024 165.1 cm 29.5 kg/m2 06092.85 g JAMIE OVERTON [facility] 03/07/2024 10:50:06 Date Recorded Body height Body mass index (BMI) Body weight Provider Name and Address Organization Details Last Updated DateTime 06/06/2024 165.1 cm 29.5 kg/m2 10784.85 g JAMIE OVERTON [facility] 06/06/2024 15:58:40 Date Recorded Body height Body mass index (BMI) Body weight Provider Name and Address Organization Details Last Updated DateTime 09/12/2024 165.1 cm 29.5 kg/m2 94181.85 g JAMIE OVERTON [facility] 09/12/2024 15:45:15 Social History None recorded. Functional Status None recorded. Mental Status None recorded. Family History Nothing Reported. Medical History Condition Response Allergies/Hayfever N Coronary Artery Disease N Breathing or lung disorders Y Anxiety/Depression N Emphysema N Nerve Disorders N Thyroid Problems N COPD N Pacemaker N Kidney/Bladder Problems N Anemia N Vascular Disease N Heart Trouble Y Heart Attack ([place]) N Gastrointestinal Disease N Cholesterol N Diabetes [...] SNOMED-CT Code Diagnosis ICD10 Code Diagnosis Note [id number] MD Juan Bello [address] [place] [address] 11/30/2023 14:58:40 12/09/2023 09:14:47 Closed fracture proximal humerus, greater tuberosity 291033085 S42.252D [id number] MD Juan Bello [address] [place] [address] 03/07/2024 10:38:39 04/05/2024 11:09:04 Left axillary neuropathy 8482482535 6535778 G56.92 [id number] [facility] [address] [place], [place] [address] 06/06/2024 15:34:21 06/28/2024 10:20:56 Pain of left shoulder joint 1515484639 6847402 M25.101 [id number] MD REGINA Bello - [address] [place] [address] 09/12/2024 15:26:47 09/26/2024 08:56:08 Cervical radiculopathy 45228326 M54.12 Closed fra cture proximal humerus, greater tuberosity 739482365 S42.252D Health Concerns Section Related Observation LastModified by Organization Detai ls LastModified Time None Recorded Concern Status LastModified by Organization Details LastModified Time None Recorded Advance Directives Directive None Recorded Payers Encounter Date Sequence Insurance Name Policy Number Policy Joseph Covered Member ID Joseph Member ID Guarantor Name 11/30/2023 [facility] Chiquita Czeczot 03/07/2024 [facility] Czeczot 06/06/2024 [facility] 09/12/2024 [facility] Czeczot Notes Date Note Type Note Provider [...] the left shoulder ordered and obtained at [facility] 03/25/2023 were reviewed during the visit. These demonstrate evidence for greater tuberosity fracture with posterior superior displacement. Glenohumeral joint space and acromioclavicular interval distance well maintained. Posterior translation of the humeral head relative to the center the glenoid. A.c. joint space well preserved. Type II acromion. No significant glenohumeral arthrosis.EMG/NCS of the LUE performed at [facility] 06/16/2023 (Nicolas) reviewed on CIS: Electrodiagnostic findings [...] plexopathy less likely. C-spine MRI performed at [facility] 09/02/2023 independently reviewed by me on OrthoPACS [...] continue with light duty restrictions in the interim.TRA speech recognition maternity nurse software was used to create portions of this document. An attempt at proofreading has been made to minimize errors. Please call for corrections. Minal Ortiz MD [address] [place] [address], [place], [address], [facility] - [facility] 11/30/2023 16:32:51 4 text/html Issue: Left greater [...] the left shoulder ordered and obtained at [facility] 03/25/2023 were reviewed during the visit. These demonstrate evidence for greater tuberosity fracture with posterior superior displacement. Glenohumeral joint space and acromiohumeral interval distance well maintained. Posterior translation of the humeral head relative to the center the glenoid. A.c. joint space well preserved. Type II acromion. No significant glenohumeral arthrosis.EMG/NCS of the LUE performed at [facility] 06/16/2023 (Nicolas) reviewed on CIS: Electrodiagnostic findings [...] plexopathy less likely. C-spine MRI performed at [facility] 09/02/2023 independently reviewed by me on OrthoPACS [...] the interim (no use of the left arm).TRA speech recognition maternity nurse software was used to create portions of this document. An attempt at proofreading has been made to minimize errors. Please call for corrections. Minal Ortiz MD [address] [place] [address] [address] [facility], [place], [address], [facility] - [facility] 03/07/2024 11:11:03 4 text/html Issue: Left greater [...] the left shoulder ordered and obtained at [facility] today were reviewed during the visit. [...] glenohumeral arthrosis.EMG/NCS of the LUE performed at [facility] 06/16/2023 (Nicolas) reviewed on CIS: Electrodiagnostic findings [...] plexopathy less likely. C-spine MRI performed at [facility] 09/02/2023 independently reviewed by me on OrthoPACS [...] permanent. No new x-rays necessary at next appointment.TRA speech recognition maternity nurse software was used to create portions of this document. An attempt at proofreading has been made to minimize errors. Please call for corrections. Minal Ortiz MD [address] [place] [address] [address] [facility], [place], [address], [facility] - [facility] 06/06/2024 17:25:54 5 text/html [...] the left shoulder ordered and obtained at [facility] 06/06/2024 were reviewed during the visit. [...] glenohumeral arthrosis.EMG/NCS of the LUE performed at [facility] 06/16/2023 (Nicolas) reviewed on CIS: Electrodiagnostic findings [...] plexopathy less likely. C-spine MRI performed at [facility] 09/02/2023 independently reviewed by me on OrthoPACS [...] further information about potential nerve/muscle recovery on EMG/NCS.[facility] speech recognition maternity nurse software was used to create portions of this document. An attempt at proofreading has been made to minimize errors. Please call for corrections. Minal Ortiz MD [facility] [address], [place], [address], [facility] - [facility] 09/12/2024 16:56:32 OBGyn Episode No OBEpisode recorded.
== END 2024-11-01 15:42 | disposition home or self-care (01) ==
LOC: HO.HCS 14:47
PROVIDERS: PCP Family Medicine; Visit Provider Internal Medicine Cardiovascular Disease
DX: I50.30 Unspecified diastolic (congestive) heart failure (principal); I48.21 Permanent atrial fibrillation; Z95.0 Presence of cardiac pacemaker
CPT/HCPCS: 93279; 99214; G2211

== ENCOUNTER → 2024-11-01 14:46 | Outpatient (BNVA) | payer MEDICARE, SELFPAY | PROVIDERS: PCP Family Medicine; Visit Provider Internal Medicine Cardiovascular Disease | DX: Z45.018 Encounter for adjustment and management of other part of cardiac pacemaker (principal); I50.30 Unspecified diastolic (congestive) heart failure; I48.21 Permanent atrial fibrillation | CPT/HCPCS: 99212 ==

== ENCOUNTER 2024-12-01 11:21 | Outpatient (REF) | payer MEDICARE, SELFPAY ==
[2024-12-01 12:22] LABS: Alanine Aminotransferase 22 U/L (0-31); Anion Gap 13 (12-20); Aspartate Amino Transferase 28 U/L (5-31); Blood Urea Nitrogen 26 mg/dL (9-16); Carbon Dioxide 24 mmol/L (22-29); Chloride 109 mmol/L (96-108); Estimated Glomerular Filt Rate > 60; Potassium 4.4 mmol/L (3.3-5.1); Sodium 142 mmol/L (135-145)
--- OUTSIDE RECORDS SUMMARY | 2024-12-01 13:37 | XMS_ITS | Clinical Summary ---
Author Organization [facility] Address [address] [place] [address] Phone Care Team Providers Care Group Sales Coordinator Name Role Phone Yair Huff MD Primary Care Provider [phone] Social History Tobacco Use Types Packs/Day Years [...] Vaccines (1 of 2) 1994 RSV Immunization Adult Patie nts (1 - 1-dose 75+ series) 2019 COVID-19 Vaccine ( - 2023-2 5 season) 2024 Cholesterol Screening (Lipid Panel) 06/03/2024 Depression Screening 06/03/2024 Falls Risk Assessment 06/03/2024 Medicare Annual Wellness Visit 06/03/2024 Osteoporosis Screening (Bone Density Screening) 06/03/2024 Social Influencers of Health Screening 06/03/2024 Hypertension/CHF/CAD Annual BMP Blood Test 07/13/2024 Influenza Vaccine (Season Ended) 2025 HIB Vaccines Aged Out No longer eligi [...] age to complete this topic Meningococcal B Vaccine Aged Out No l onger eligible based on patient's age to complete this topic RSV Immunization Patients Un valerie 20 months Aged Out No longer eligible b ased on patient's age to complete this topic Varicella Vaccines Aged Out No longer eligible based on patient's age to complete this topic Insurance [employer] [place] [employer] Care Teams Group Sales Coordinator Relationship Specialty Start Date End Date Yair Huff MD [address] [place] [address] Dr [address] [place] [address] PCP - General Internal Medicine 07/12/24
--- OUTSIDE RECORDS SUMMARY | 2024-12-01 13:37 | XMS_ITS | Clinical Summary ---
Author Organization [facility] Address [address] [place] [address] Care Team Providers Care Application Programmer Analyst Name Role Phone Yair Huff MD Primary Care Provider [phone] Allergies Active Allergy Reactions Criticality Noted Date Comments Adhesives/Tape Unknown/Patient and Family Unable to Define Medium 09/24/2022 Aspirin Unknown/Patient and Family Unable to Define Medium 09/24/2022 Medications atorvastatin (LIPITOR) 40 MG tabletIndications :Hypertension, unspecified type,Persistent atrial fibrillation (HCC) Take 1 tablet (40 mg total) by mouth daily. 2 Active montelukast (SINGULAIR) 10 MG tabletIndications :Hypertension, unspecified type,Persistent atrial fibrillation (HCC) Take 1 tablet (10 mg total) by mouth daily as needed. 3 Active OMEprazole (PriLOSEC) 40 MG capsuleIndication s:Hypertension, unspecified type,Persistent atrial fibrillation (HCC) Take by mouth daily. 2 Active meloxicam (MOBIC) 15 MG tabletIndications :Hypertension, unspecified type,Persistent atrial fibrillation (HCC) Take 1 tablet (15 mg total) by mouth daily. 3 Active losartan (COZAAR) 100 MG tabletIndications :Hypertension, unspecified type,Persistent atrial fibrillation (HCC) Take 1 tablet (100 mg total) by mouth daily. 2 Active Xarelto 20 MG tabletIndications :Hypertension, unspecified type,Persistent atrial fibrillation (HCC) TAKE 1 TABLET BY MOUTH DAILY AT 5.30 PM 2 Active Vitamin E 100 units TabIndications:Hy pertension, unspecified type,Persistent atrial fibrillation (HCC) Take 100 Int'l Units by mouth. 2 Active gabapentin (NEURONTIN) 300 MG capsuleIndication s:Hypertension, unspecified type,Persistent atrial fibrillation (HCC) Take 2 capsules (600 mg total) by mouth nightly. 2 Active furosemide (LASIX) 40 MG tabletIndications :Hypertension, unspecified type,Persistent atrial fibrillation (HCC) Take 1 tablet (40 mg total) by mouth every morning. 2 Active carvedilol (COREG) 25 MG tabletIndications :Hypertension, unspecified type,Persistent atrial fibrillation (HCC) Take 1 tablet (25 mg total) by mouth 2 (two) times a day. 2 Active diltiazem (CARDIZEM CD) 120 MG 24 hr capsuleIndication s:Hypertension, unspecified type,Persistent atrial fibrillation (HCC) Take 1 capsule (120 mg total) by mouth daily. 3 Active fexofenadine (MARIBELL) 180 MG tabletIndications :Hypertension, unspecified type,Persistent atrial fibrillation (HCC) Take 1 tablet (180 mg total) by mouth daily. Administer with water only; do not administer with fruit juices. Active empagliflozin (Jardiance) 10 MG tabletIndications :Hypertension, unspecified type,Persistent atrial fibrillation (HCC) Take 1 tablet (10 mg total) by mouth every morning. Active Multiple Vitamins-Minerals (multivitamin with minerals) tabletIndications :Hypertension, unspecified type,Persistent atrial fibrillation (HCC) Take 1 tablet by mouth daily. Active cholecalciferol 10 MCG (400 UNIT) tabletIndications :Hypertension, unspecified type,Persistent atrial fibrillation (HCC) Take 1 tablet (400 Units total) by mouth daily. Active Ascorbic Acid (vitamin C) 100 MG tabletIndications :Hypertension, unspecified type,Persistent atrial fibrillation (HCC) 1 tablet (100 mg total) 2 (two) times a day. Active coenzyme Q10 100 MG capsuleIndication s:Hypertension, unspecified type,Persistent atrial fibrillation (HCC) Take 1 capsule (100 mg total) by mouth daily. Active flecainide (TAMBOCOR) 50 MG tabletIndications :Hypertension, unspecified type,Persistent atrial fibrillation (HCC) Take 1 tablet (50 mg total) by mouth twice daily (every 12 hours). Active Magnesium Oxide 250 MG Tab tabletIndications :Hypertension, unspecified type,Persistent atrial fibrillation (HCC) Take 1 tablet (250 mg total) by mouth daily. Take 2 hours apart from other medications; take with food Active diltiazem (CARDIZEM) 120 MG tabletIndications :Hypertension, unspecified type,Persistent atrial fibrillation (HCC) Take 1 tablet (120 mg total) by mouth 4 (four) times a day. Active Active Problems No known active problems Social History Tobacco Use Types Packs/Day Years Used Date Smoking Tobacco: Never Smokeless Tobacco: Never Tobacco Cessation:Counseling Given: Not Answered Alcohol Use Standard Drinks/Week Comments Not Currently 0 (1 standard drink = 0.6 oz pur e alcohol) Comments Unknown Sex and Gender Information Value Date Recorded Sex Assigned at Female 09/23/2022 3:07 PM EST Legal Sex Female 7:09 PM EST Gender Identity Female 09/23/2022 3:07 [...] series) 2019 Influenza Vaccine 03/10/2024 COVID-19 Vaccine ( - 2023-2 5 season) 2024 Hepatitis B Vaccines Aged Out No long er eligible based on patient's age to complete this topic Insurance MEDICARE Care Teams Application Programmer Analyst Relationship Specialty Start Date End Date Yair Huff MD [address] [place] [address] [place] [address] PCP - General Internal Medicine 09/23/22
--- OUTSIDE RECORDS SUMMARY | 2024-12-01 13:37 | XMS_ITS | Encounter Summary ---
Author Organization [facility] Address [address] [place] [address] Care Team Providers Care Commercial Loan Assistant Name Role Phone Unavailable Primary Care Provider Unavailabl e Encounter Details Date Type Department Care Team (Late st Contact Info) Description 05/17/2024 10:14 AM EDT Hospital Encounter TH HISTORIC ENCOUNTERS [facility] CONVERSION ONLY Jonn Michael MD [address] [place] [id number] Social History Tobacco Use Types Packs/Day Years [...]
== END 2024-12-01 11:22 | disposition home or self-care (01) ==
LOC: HO.LAB 11:21
PROVIDERS: PCP Family Medicine; Visit Provider Family Medicine
DX: I10 Essential (primary) hypertension (principal); E78.00 Pure hypercholesterolemia, unspecified; Z79.899 Other long term (current) drug therapy
CPT/HCPCS: 36415; 80051; 82550; 82565; 84450; 84460; 84520

== ENCOUNTER 2025-01-15 07:16 | Emergency (ER) | payer MEDICARE, SELFPAY ==
[2025-01-15] VITALS (10 sets, daily range): BP systolic 186–210; BP diastolic 68–168; PULSE 60–66; RESP 16–20; TEMP 36.1–36.8; O2SAT 91–96; BMI 28.3
--- NOTE | 2025-01-15 | ECG_ITS ---
Test Reason : N/V/SOB Blood Pressure : */* mmHG Vent. Rate : 64 BPM Atrial Rate : 375 BPM P-R Int : * ms QRS Dur : 130 ms QT Int : 484 ms P-R-T Axes : * 30 34 degrees QTcB Int : 499 ms Ventricular-paced rhythm with occasional Premature ventricular complexes Abnormal ECG When compared with ECG of 05-Oct-2024 13:23, Premature ventricular complexes are now Present Vent. rate has increased by 3 bpm Referred By: Generic ED Physician Electronically Signed By: QUANG JOLLY
--- NOTE | ~2025-01-15 | XR_ITS ---
CLINICAL HISTORY: sob 1 view chest x-ray Comparison: CR/SR - XR CHEST 1V - 09/03/23 19:28 EST Findings: The lungs are clear. A cardiac pacemaker is present. No acute fracture. IMPRESSION: 1. No acute findings. This document has been electronically signed by: Brandon Hamilton MD on 01/15/2025 09:33:43
--- NOTE | ~2025-01-15 | US_ITS ---
CLINICAL HISTORY: RUQ tenderness, vomiting US abdomen limited Comparison: US - US ABDOMEN LIMITED - 10/07/24 16:[address]/SR - CT ABDOMEN PELVIS W IV CON - 10/05/24 18:18 EST Findings: There are gallstones in the gallbladder. Mild wall thickening of the gallbladder measuring 4 mm. No pericholecystic fluid. There is no tenderness in the area of the gallbladder. CBD 3 mm. IMPRESSION: Cholelithiasis. Mild wall thickening of the gallbladder. Further evaluation by HIDA scan as indicated. No dilation of the CBD. This document has been electronically signed by: Jon Corcoran MD on 01/15/2025 13:18:29
[2025-01-15 09:30] LABS: MANUAL DIFF FLAG NO
[2025-01-15 09:31] LABS: Basophils Percent Auto 0.1 % (0-2); Hematocrit 46.6 % (37.0-47.0); Hemoglobin 15.8 g/dl (12.0-16.0); Imm Gran Abs Auto 0.04 X10*3/uL (0.00-0.03); Imm Gran Pct Auto 0.4 % (0.0-0.4); Lymphocytes Absolute Auto 0.6 X10*3/uL (1.2-4.9); Lymphocytes Percent Auto 5.3 % (20-40); Mean Corpuscular HGB Conc 33.9 g/dl (31.0-35.0); Mean Corpuscular Hemoglobin 32.4 pg (27.0-33.0); Mean Corpuscular Volume 95.5 fL (80.0-98.0); Monocytes Absolute Auto 0.6 X10*3/uL (0.1-1.2); Monocytes Percent Auto 5.4 % (2-11); Neutrophils Percent Auto 88.8 % (45-73); Red Blood Count 4.88 X10*6/uL (4.20-5.50); Red Cell Distribution Width 12.4 % (11.0-16.0); White Blood Count 11.3 X10*3/uL (4.8-10.8)
--- NOTE | 2025-01-15 09:34 | ED.GENADULT ---
HPI - General Adult General Chief complaint: Abdominal Pain Stated complaint: cough Time Seen by Provider: 01/15/25 09:27 Source: patient, family, RN notes reviewed and old records reviewed Mode of arrival: ambulatory Limitations: no limitations History of Present Illness ED Provider: Erick CATHERINE narrative: Patient is an 79-year-old female with history of afib on Eliquis, pacemaker, NSTEMI, pulmonary hypertension, cardiomyopathy, HTN presenting to the emergency department with complaint of nausea and vomiting since Thursday as well as RUQ abdominal pain. Denies diarrhea, fever. Has not taken any of her regular medications since Thursday secondary to not being able to tolerate PO. Seen here in Sep for similar symptoms, treated with IV abx for acute cholecystitis, surgery deferred due to comorbidities. MD complaint: abd pain, nausea, vomiting Onset (ago): day(s) Related Data Home Medications ?Medication ?Instructions ?Recorded ?Confirmed montelukast 10 mg tablet 10 mg PO BEDTIME 05/16/20 11/01/24 fexofenadine 180 mg tablet 180 mg PO DAILY 06/21/21 11/01/24 (Shea Allergy) coenzyme Q10 100 mg tablet 100 mg PO DAILY 07/28/21 11/01/24 magnesium 250 mg tablet 250 mg PO BEDTIME 07/28/21 11/01/24 multivitamin 1 tab PO DAILY 07/28/21 11/01/24 ascorbic acid (vitamin C) 500 mg 1,000 mg PO DAILY 09/26/22 11/01/24 tablet furosemide 40 mg tablet 40 mg PO DAILY 09/26/22 11/01/24 omeprazole 40 mg capsule,delayed 40 mg PO BEDTIME 09/26/22 11/01/24 release gabapentin 300 mg capsule 600 mg PO BEDTIME 04/06/23 11/01/24 cholecalciferol (vitamin D3) 25 25 mcg PO DAILY 09/03/23 11/01/24 mcg (1,000 unit) capsule (Vitamin D3) diltiazem HCl 120 mg 120 mg PO DAILY 05/03/24 11/01/24 capsule,extended release 24 hr meloxicam 15 mg tablet 15 mg PO DAILY 10/05/24 11/01/24 ondansetron HCl 4 mg tablet 4 mg PO Q8H PRN nausea 10/05/24 11/01/24 Previous Rx's ?Medication ?Instructions ?Recorded atorvastatin 40 mg tablet 40 mg PO DAILY #90 tabs 05/09/24 carvedilol 25 mg tablet 25 mg PO BID #180 tabs 10/24/24 empagliflozin 10 mg tablet 10 mg PO DAILY 90 days #90 tabs 10/24/24 (Jardiance) apixaban 5 mg tablet (Eliquis) 5 mg PO BID #180 tabs 01/03/25 Allergies Allergy/AdvReac Type Severity Reaction Status Date / Time aspirin [ASPIRIN] Allergy Unknown RASH Verified 01/15/25 07:21 Sulfa (Sulfonamide Allergy Unknown RASH Verified 01/15/25 07:21 Antibiotics) [SULFA (SULFONAMIDE ANTIBIOTICS)] flecainide AdvReac Intermediate Dizziness Verified 01/15/25 07:21 amiodarone AdvReac Mild Dizziness Verified 01/15/25 07:21 Digitalis Glycosides AdvReac Confusion Verified 01/15/25 07:21 adhesives AdvReac Unknown Uncoded 01/15/25 07:21 Review of Systems Review of Systems: As per HPI Yes all other systems are reviewed and are negative Constitutional: Constitutional: Reports as per HPI [facility] Past Medical History Medical History (Updated 01/15/25 @ 16:16 by Diana Suarez NP) Permanent atrial fibrillation Gallstones (HFpEF) heart failure with preserved ejection fraction Cardiac pacemaker in situ Paroxysmal atrial fibrillation Preoperative cardiovascular examination NSTEMI (non-ST elevated myocardial infarction) Pulmonary hypertension Chronic heart failure with preserved ejection fraction (HFpEF) Chronic heart failure with preserved ejection fraction (HFpEF) Cardiomyopathy Pulmonary hypertension Diastolic dysfunction History of cardiomyopathy HTN (hypertension) History of cardioversion Surgical History S/P cardiac catheterization Hx of total hip arthroplasty Hx of cardiac cath Hx of hand surgery History of back surgery Family History Family History Father Cancer Mother Stroke Brother Atrial fibrillation Sister Cardiovascular disease Atrial fibrillation Social History Social History Household Members: None Housing: House Do you presently have visiting nurse or other home services: No Unable to assess alcohol history related to: Unknown Alcohol intake: former Comment: pt refusing bed alarm Patient Tobacco Use Status: Never used Tobacco Smoked in Last 30 Days: No Second Hand Smoke Exposure: No Use of substances other than those prescribed or required for medical reasons: No Advance Directives: Yes Advance Directives on File: Yes Advance Directives Date on File: 12/18/22 Do you have a plan to hurt others: No Plan service: No Current occupational status: retired Physical Exam ED Vital Signs: Vital Signs - 24 hr 01/15/25 07:19 01/15/25 10:14 01/15/25 10:53 Temperature 97 F Pulse Rate 66 62 Respiratory Rate 19 16 20 Blood Pressure 192/81 H 193/90 H Pulse Oximetry 94 91 L Oxygen Delivery Method Room Air Room Air 01/15/25 11:48 01/15/25 13:20 01/15/25 14:30 Temperature 98 F Pulse Rate 63 60 60 Respiratory Rate 20 20 Blood Pressure 210/88 H 201/87 H 201/97 H Pulse Oximetry 94 Oxygen Delivery Method Room Air 01/15/25 14:52 01/15/25 15:27 Temperature 98.2 F Pulse Rate 66 Respiratory Rate 18 Blood Pressure 209/168 H 199/83 H Pulse Oximetry 95 Oxygen Delivery Method Room Air BMI result Body Mass Index 28.3 Vital signs have been reviewed and appear to be correct. Blood pressure elevated. Heart rate normal. Respiratory rate normal. Temperature normal. Oxygen saturation normal. Const General: cooperative, healthy appearing and no acute distress Orientation/consciousness: oriented to person, oriented to place, oriented to time and patient oriented x3 Limitations: no limitations [facility] Head: Yes normocephalic and Yes atraumatic Ears: external ears normal General nose exam: Normal external nose present Face and sinus: Yes face symmetric Mouth: oropharynx normal and moist mucous membranes Throat: Yes uvula midline Eyes Pupils: Equal, round and reactive pupils present Neck Neck: Yes normal visual inspection and Yes supple Resp Effort & Inspection: normal respiratory effort and able to speak in complete sentences Auscultation: clear to auscultation bilaterally Cardio Rate: regular rate Rhythm: regular rhythm Heart sounds: S1 normal heart sound present and S2 normal heart sound present GI Palpation (GI): Soft to palpation, Tenderness to palpation present (GI) in the RUQ; Ordoñez's sign negative and no guarding Auscultation: normoactive bowel sounds General: Yes no CVA tenderness Back/Spine/Pelvis Back: no CVA tenderness Skin General skin exam: elasticity normal and turgor normal Neuro General: oriented to person, oriented to place, oriented to time, patient oriented x3, moves all extremities, no focal motor deficits and CN's II-XI intact bilaterally Cranial nerves: Yes Equal, round and reactive pupils present Cognition (Neuro): normal cognition Extrem General: Yes full ROM, Yes no pedal edema and Yes no calf tenderness Psych Mental Status: mental status grossly normal Affect: normal affect Thought process: Normal thought process present Medications Administered Discontinued Medications Generic Name Dose Route Start Last Admin Trade Name Freq PRN Reason Stop Dose Admin Hydralazine HCl 10 mg 01/15/25 14:37 01/15/25 14:52 Hydralazine Hcl 20 Mg/Ml Vial IVPUSH 01/15/25 14:38 10 mg ONCE ONE Administration Protocol Sodium Chloride 1,000 mls @ 999 mls/hr 01/15/25 09:45 01/15/25 10:55 Ns IV 01/15/25 10:45 Infused .Q1H1M ROSENDA Infusion Labetalol HCl 10 mg 01/15/25 13:02 01/15/25 13:20 Labetalol Hcl 100 Mg/20 Ml Vial IVPUSH 01/15/25 13:03 10 mg ONCE ONE Administration Metoclopramide HCl 10 mg 01/15/25 10:37 01/15/25 10:53 Metoclopramide Hcl 10 Mg/2 Ml Vial IVPUSH 01/15/25 10:38 10 mg ONCE ONE Administration Morphine Sulfate 4 mg 01/15/25 10:37 01/15/25 10:53 Morphine Sulfate 4 Mg/Ml Cartridge IVPUSH 01/15/25 10:38 4 mg ONCE ONE Administration Protocol Ondansetron HCl 4 mg 01/15/25 09:32 01/15/25 09:52 Ondansetron Hcl 4 Mg/2 Ml Vial IVPUSH 01/15/25 09:33 4 mg ONCE ONE Administration Medical Decision Making Medical Decision Making MDM Narrative: Patient is an 79-year-old female with history of afib on Eliquis, pacemaker, NSTEMI, pulmonary hypertension, cardiomyopathy, HTN presenting to the emergency department with complaint of nausea and vomiting since Thursday as well as RUQ abdominal pain. On exam patient is awake, A+Ox3, hypertensive, VS otherwise WNL, afebrile, normal neurological exam without focal deficits, physical exam findings as above. Given reported symptoms and physical exam findings, initial differential includes but is not limited to cholecystitis, biliary colic, choledocholithiasis. Unlikely ACS. Labs notable for mild leukocytosis, elevated transaminases, alk-phos, T bili, mildly elevated lipase. U/S RUQ notable for GB wall thickening and cholelithiasis. My interpretation is in agreement with the radiologist's interpretation. Patient very uncomfortable despite antiemetics and pain meds. Case discussed with Dr. Mejia who recommends transfer due to patient's significant comorbidities. Call placed to [facility] for transfer. 16:[address] Garcia, ED attending, who accepts patient as an ED to ED transfer, as on-call surgeon has been in surgery for an extended perior of time and has been unable to discuss transfer. Patient and family updated on plan and are agreeable to transfer. Patient complaining of ongoing severe nausea despite zofran, reglan. Will try bendaryl. Differential Diagnosis Differential Diagnoses: The differential diagnosis associated with the presentation includes As per [facility] Admission/Observation Consideration of admission/observation: Escalation of care including admission/observation considered Consult Healthcare Provider Management of the patient was discussed with: Medical Coding Technician (Dr. Garcia, ED attending) Lab Data [facility] Lab Attestation statement: I reviewed the patient's lab results. as per [facility] 01/15/25 09:26 01/15/25 09:26 Labs: Lab Results 01/15/25 01/15/25 Range/Units 09:26 12:43 WBC 11.3 H (4.8-10.8) X10*3/uL RBC 4.88 (4.20-5.50) X10*6/uL Hgb 15.8 (12.0-16.0) g/dl Hct 46.6 (37.0-47.0) % MCV 95.5 (80.0-98.0) fL MCH 32.4 (27.0-33.0) pg MCHC 33.9 (31.0-35.0) g/dl RDW 12.4 (11.0-16.0) % Plt Count 120 L D (160-400) X10*3/uL MPV 9.7 (9.4-12.3) fL Immature Gran % (Auto) 0.4 (0.0-0.4) % Neut % (Auto) 88.8 H (45-73) % Lymph % (Auto) 5.3 L (20-40) % [place] % (Auto) 5.4 (2-11) % Eos % (Auto) 0.0 (0-4) % Baso % (Auto) 0.1 (0-2) % Lymph # (Auto) 0.6 L (1.2-4.9) X10*3/uL [place] # (Auto) 0.6 (0.1-1.2) X10*3/uL Eos # (Auto) 0.0 (0.0-0.4) X10*3/uL Baso # (Auto) 0.0 (0.0-0.2) X10*3/uL Abs Immat Gran (auto) 0.04 H (0.00-0.03) X10*3/uL Absolute Neuts (auto) 10.0 H (2.0-8.3) x10*3/uL Absolute Nucleated RBC 0.000 (0.0-0.012) X10*3/uL Nucleated RBC % (auto) 0.0 (0.0-0.2) /100WBC Sodium 140 (135-145) mmol/L Potassium 4.1 (3.3-5.1) mmol/L Chloride 107 (96-108) mmol/L Carbon Dioxide 24 (22-29) mmol/L Anion Gap 13 (12-20) BUN 28 H (9-16) mg/dL Creatinine 0.82 (0.5-1.4) mg/dL Estim Creat Clear Calc 56.2 Estimated GFR > 60 Random Glucose 121 H (60-115) mg/dL Calcium 9.1 D (8.4-10.2) mg/dL Magnesium 2.3 (1.6-2.6) mg/dL Total Bilirubin 4.1 H (0.0-1.0) mg/dL AST 213 H (5-31) U/L ALT 447 H (0-31) U/L Alkaline Phosphatase 274 H (39-117) U/L B-Natriuretic Peptide 721 H (<100) pg/mL Total Protein 6.9 (6.5-8.0) g/dL Albumin 4.0 (3.5-5.0) g/dL Lipase 79 H (8-78) U/L Urine Color Dark Yellow Urine Appearance Cloudy Urine pH 5.5 (5.0-9.0) Ur Specific [place] >= 1.030 H (1.005-1.025) Urine Protein 300 (3+) H (Neg-Trace) mg/dL Urine Glucose (UA) >=1000 H (Negative) mg/dL Urine Ketones 80 (Negative) mg/dL Urine Blood Small (1+) H (Negative) Urine Nitrite Negative (Negative) Ur Leukocyte Esterase Negative (Negative) Urine RBC 6-10 H (0-2) /HPF Urine WBC 6-10 H (0-5) /HPF Ur Squamous Epith Cells 6-10 (0-2) /HPF Urine Bacteria Trace (None Seen) Hyaline Casts 3-5 (0-2) /LPF Influenza Type A (PCR) NEGATIVE (Negative) Influenza Type B (PCR) NEGATIVE (Negative) RSV RNA Qual (PCR) NEGATIVE (Negative) SARS-CoV-2 RNA (RT-PCR) NEGATIVE (Negative) Independent Interpretation I performed an independent interpretation of an: Ultrasound Interpretation: ultrasound right upper quadrant abdomen notable for cholelithiasis and gallbladder wall thickening Radiology Impression Discussion of test interpretation with radiology: I have reviewed the radiologist's reading. Radiologist Impression: US abdomen limited Comparison: US - US ABDOMEN LIMITED - 10/07/24 16:[address]/SR - CT ABDOMEN PELVIS W IV CON - 10/05/24 18:18 EST Findings: There are gallstones in the gallbladder. Mild wall thickening of the gallbladder measuring 4 mm. No pericholecystic fluid. There is no tenderness in the area of the gallbladder. CBD 3 mm. IMPRESSION: Cholelithiasis. Mild wall thickening of the gallbladder. Further evaluation by HIDA scan as indicated. No dilation of the CBD. External Record Review External record reviewed: Inpatient record, Office record and Outpatient record Prescription Management I considered prescription management with: Antibiotic and Other Critical Care Time Critical Care Time Critical Care Time: Yes Total Critical Care Time: 49 Attestation: I have personally provided critical care time exclusive of time spent on separately billable procedures. Time includes review of lab data, radiology results, discussion with consultants, and monitoring for potential decompensation. Intervention performed as documented. Discharge Plan Discharge Clinical Impression: Acute cholecystitis Patient Disposition: Xfer Acute Care Hospital Transfer Details: to [facility] ED Prescriptions: No Action atorvastatin 40 mg tablet 40 mg PO DAILY Qty: 90 3RF carvedilol 25 mg tablet 25 mg PO BID Qty: 180 3RF Jardiance 10 mg tablet 10 mg PO DAILY 90 Days Qty: 90 3RF Eliquis 5 mg tablet 5 mg PO BID Qty: 180 3RF coenzyme Q10 100 mg Tablet 100 mg PO DAILY multivitamin Tablet 1 tab PO DAILY magnesium 250 mg Tablet 250 mg PO BEDTIME ascorbic acid (vitamin C) 500 mg Tablet 1,000 mg PO DAILY omeprazole 40 mg Capsule,Delayed Release(Dr/Ec) 40 mg PO BEDTIME furosemide 40 mg Tablet 40 mg PO DAILY cholecalciferol (vitamin D3) [Vitamin D3] 25 mcg (1,000 unit) Capsule 25 mcg PO DAILY meloxicam 15 mg tablet 15 mg PO DAILY ondansetron HCl 4 mg tablet 4 mg PO Q8H PRN (Reason: nausea) montelukast 10 mg tablet 10 mg PO BEDTIME gabapentin 300 mg capsule 600 mg PO BEDTIME fexofenadine [Shea Allergy] 180 mg tablet 180 mg PO DAILY diltiazem HCl 120 mg capsule,extended release 24hr 120 mg PO DAILY Print Language: Hungarian
[2025-01-15 09:45] LABS: Alanine Aminotransferase 447 U/L (0-31); Alkaline Phosphatase 274 U/L (39-117); Anion Gap 13 (12-20); Aspartate Amino Transferase 213 U/L (5-31); Bilirubin Total 4.1 mg/dL (0.0-1.0); Blood Urea Nitrogen 28 mg/dL (9-16); Calcium 9.1 mg/dL (8.4-10.2); Carbon Dioxide 24 mmol/L (22-29); Chloride 107 mmol/L (96-108); Creatinine Clr Calc Pharmacy 56.2; Estimated Glomerular Filt Rate > 60; Glucose Random 121 mg/dL (60-115); Lipase 79 U/L (8-78); Magnesium 2.3 mg/dL (1.6-2.6); Potassium 4.1 mmol/L (3.3-5.1); Sodium 140 mmol/L (135-145); Total Protein 6.9 g/dL (6.5-8.0)
[2025-01-15] MEDS: 0.9 % Sodium Chloride 1,000 ML 999 ML IV (09:52)
[2025-01-15] MEDS: ondansetron HCL 4 MG/2 ML VIAL IVPUSH (09:52)
[2025-01-15 10:02] LABS: Mean Platelet Volume 9.7 fL (9.4-12.3); Platelet Count 120 X10*3/uL (160-400)
[2025-01-15 10:07] LABS: Influenza A PCR NEGATIVE (Negative); Influenza B PCR NEGATIVE (Negative); Resp Syncy Virus RNA Qual PCR NEGATIVE (Negative); SARS COV2 PCR INHOUSE NEGATIVE (Negative)
[2025-01-15] MEDS: Metoclopramide HCl 10 MG/2 ML VIAL IVPUSH (10:53)
[2025-01-15] MEDS: Morphine Sulfate 4 MG/ML CARTRIDGE IVPUSH (10:53)
[2025-01-15 11:13] LABS: B Type Natriuretic Peptide 721 pg/mL (<100)
[2025-01-15 12:52] LABS: Appearance Urine Cloudy; Color Urine Dark Yellow; Glucose Urine UA >=1000 mg/dL (Negative); Leukocyte Esterase Urine Negative (Negative); Nitrite Urine Negative (Negative); PH 5.5 (5.0-9.0); Specific Gravity - Urine >= 1.030 (1.005-1.025); UMIC TRIGGER UACC YES; Urine Blood Small (1+) (Negative); Urine Ketones 80 mg/dL (Negative); Urine Protein 300 (3+) mg/dL (Neg-Trace)
[2025-01-15 12:57] LABS: Bacteria Urine Trace (None Seen); UACC Culture Trigger YES
[2025-01-15] MEDS: Labetalol HCL 100 MG/20 ML VIAL 10 MG IVPUSH (13:20)
--- NOTE | 2025-01-15 14:19 | PC.NURSE ---
call placed to [facility] transfer line
[2025-01-15] MEDS: hydrALAZINE HCl 20 MG/ML VIAL 10 MG IVPUSH (14:52)
[2025-01-15] MEDS: Piperacillin Sodium/Tazobactam 3.375 GM in 0.9 % Sodium Chloride 50 ML IV (16:20)
[2025-01-15] MEDS: diphenhydrAMINE HCL 50 MG/ML VIAL 25 MG IVPUSH (16:20)
--- NOTE | 2025-01-15 16:44 | PC.NURSE ---
attempt x 1 to give nurse to nurse report to [facility] ED at [phone], given instructions by charge nurse to call back in 10 minutes
--- NOTE | 2025-01-15 17:06 | PC.NURSE ---
Addendum entered by Lindy Bee RN 01/15/25 17:07: no answer Original Note: attempt #2 at nurse to nurse report to [facility] emergency department
--- NOTE | 2025-01-15 17:28 | PC.NURSE ---
attempt #3 for nurse to nurse report to [facility] emergency department, no answer. Verbal report given to EMS. Pt to [facility] via ambulance.
== END 2025-01-15 17:31 | disposition short-term general hospital (02) ==
PROVIDERS: Registered Nurse Emergency; Emergency Provider Emergency Medicine; PCP Family Medicine
DX: K81.0 Acute cholecystitis (principal); R11.2 Nausea with vomiting, unspecified; I10 Essential (primary) hypertension; I48.91 Unspecified atrial fibrillation; Z03.818 Encounter for observation for suspected exposure to other biological agents ruled out; R05.3 Chronic cough; Z95.0 Presence of cardiac pacemaker; Z79.01 Long term (current) use of anticoagulants; Z79.02 Long term (current) use of antithrombotics/antiplatelets
CPT/HCPCS: 0241U; 36415; 71045; 76705; 80053; 81001; 83690; 83735; 83880; 85025; 87086; 93005; 96361; 96365; 96375; 99285; J0360; J1200; J1920; J2270; J2405; J2543; J2765

== ENCOUNTER → 2025-01-15 08:06 | Outpatient (BNV) | payer MEDICARE, SELFPAY | PROVIDERS: Emergency Provider Emergency Medicine; PCP Family Medicine; Visit Provider Radiology Diagnostic Radiology | DX: R06.02 Shortness of breath (principal); Z95.0 Presence of cardiac pacemaker; K80.20 Calculus of gallbladder without cholecystitis without obstruction | CPT/HCPCS: 71045; 76705 ==

== ENCOUNTER → 2025-01-15 09:12 | Outpatient (BNV) | payer MEDICARE, SELFPAY | PROVIDERS: Emergency Provider Emergency Medicine; PCP Family Medicine; Visit Provider Internal Medicine | DX: I49.3 Ventricular premature depolarization (principal); Z95.0 Presence of cardiac pacemaker | CPT/HCPCS: 93010 ==

== ENCOUNTER → 2025-03-05 23:59 | Outpatient (BNV) | payer MEDICARE, SELFPAY ==
--- NOTE | 2025-03-08 17:16 | A.OFFVIS_ITS ---
Intake Visit Reasons: Remote device check- Medtronic Allergies aspirin (ASPIRIN) Allergy (Unknown, Verified 01/15/25 07:21) RASH Sulfa (Sulfonamide Antibiotics) (SULFA (SULFONAMIDE ANTIBIOTICS)) Allergy (Unknown, Verified 01/15/25 07:21) RASH flecainide Adverse Reaction (Intermediate, Verified 01/15/25 07:21) Dizziness amiodarone Adverse Reaction (Mild, Verified 01/15/25 07:21) Dizziness Digitalis Glycosides Adverse Reaction (Verified 01/15/25 07:21) Confusion adhesives Adverse Reaction (Uncoded 01/15/25 07:21) Unknown [facility] Medical History (Updated 01/15/25 @ 16:16 by Diana Suarez NP) Permanent atrial fibrillation Gallstones (HFpEF) heart failure with preserved ejection fraction Cardiac pacemaker in situ Paroxysmal atrial fibrillation Preoperative cardiovascular examination NSTEMI (non-ST elevated myocardial infarction) Pulmonary hypertension Chronic heart failure with preserved ejection fraction (HFpEF) Chronic heart failure with preserved ejection fraction (HFpEF) Cardiomyopathy Pulmonary hypertension Diastolic dysfunction History of cardiomyopathy HTN (hypertension) History of cardioversion Surgical History S/P cardiac catheterization Hx of total hip arthroplasty Hx of cardiac cath Hx of hand surgery History of back surgery Family History Father Cancer Mother Stroke Brother Atrial fibrillation Sister Cardiovascular disease Atrial fibrillation Social History Household Members: None Housing: House Do you presently have visiting nurse or other home services: No Unable to assess alcohol history related to: Unknown Alcohol intake: former Comment: pt refusing bed alarm Patient Tobacco Use Status: Never used Tobacco Second Hand Smoke Exposure: No Advance Directives Date on File: 12/18/22 service: No Current occupational status: retired Office Procedures Cardiac Device Check Cardiac Device Check Details: Remote pacemaker report generated 03/05/2025. Pacemaker function is adequate [id number] Cardiac Device Interrogation, pacemaker Procedure code (CPT) selection complete Assessment & Plan Assessment & Plan (1) Cardiac pacemaker in situ: Comment: Medtronic, single-chamber device for ventricular support post AV estiven ablation Code(s): Z95.0 - Presence of cardiac pacemaker Category: Medical Plan: See above Coding Level of Care Code Procedure Only Diagnoses Cardiac pacemaker in situ Z95.0 CPT Codes Cardiac Device Check - Cardiac Device 12: [id number] Cardiac Device Interrogation, pacemaker ([id number])
== END ==
PROVIDERS: PCP Family Medicine; Visit Provider Internal Medicine Cardiovascular Disease
DX: Z45.018 Encounter for adjustment and management of other part of cardiac pacemaker (principal)
CPT/HCPCS: 93294

== ENCOUNTER 2025-04-04 15:52 | Outpatient (AMB) | payer MEDICARE, SELFPAY ==
--- OUTSIDE RECORDS SUMMARY | 2024-01-22 09:20 | XMS_ITS ---
Author Organization [facility] Address [address] [place] [address] Care Team Providers Care Budget Manager Name Role Phone Refugio (RETIRED) , Yair Primary Care Provider Unavailable Tristen Zafar Jr [phone] REASON FOR VISIT lower gi bleed Encounters Encounter Location Date Provider Diagnosis [facility] [place] [address], [place] [phone] 01/22/2024 Tristen Zafar Jr Plan Of Treatment No Information Progress Notes * BRIDGETTE PETERSONEDOB:1944 (79 yo F)Acc No.[id number]:01/22/2024 COLON WITH MAC Patient: ANGY GOYAL Provider: Teja Zafar MD :1945 A ge:78 Y S ex:Female Date:01/22/2024 Address:[address] [place], [place] [id number] Pcp:Yair Huff (RETIRED) MD Subjective: * Chief [...] 0 01/22/2024 Generated for Printi ng/Faxing/eTransmitting on: 04/04/2025 04:38 PM EDT
--- OUTSIDE RECORDS SUMMARY | 2024-05-17 10:14 | XMS_ITS | Encounter Summary ---
Author Organization [facility] Address [address] [place] [address] Care Team Providers Care Special Needs Child Caregiver Name Role Phone Unavailable Primary Care Provider Unavailabl e Encounter Details Date Type Department Care Team (Late st Contact Info) Description 05/17/2024 10:14 AM EDT Hospital Encounter [facility]NCOUN[facility] CONVERSION ONLY Jonn Michael MD [address] [place] [phone] Social History Tobacco Use Types Packs/Day Years [...]
--- NOTE | 2025-04-04 16:08 | A.OFFPC_ITS ---
Vital Signs 04/04/25 16:11 Height 5 ft 5 in Weight 174 lb BMI 29.0 BP 140/82 H Blood Pressure Location Rt brachial Position Sitting Pulse 84 Pulse Source Pulse Oximeter Temp 97.1 F Temp Source Temporal Artery Scan Pulse Oximetry (%) 97 Oxygen Delivery Method Room Air Intake Visit Reasons: routine - Dr. Huff - requested records from [facility] Meat Required: No Accompanied by: Self / Same As Patient Allergies aspirin (ASPIRIN) Allergy (Unknown, Verified 04/04/25 16:14) RASH codeine Allergy (Unknown, Verified 04/04/25 16:15) Unknown ibuprofen Allergy (Unknown, Verified 04/04/25 16:18) Unknown nitroglycerin Allergy (Unknown, Verified 04/04/25 16:17) Unknown sertraline (From Zoloft) Allergy (Unknown, Verified 04/04/25 16:17) Unknown Sulfa (Sulfonamide Antibiotics) (SULFA (SULFONAMIDE ANTIBIOTICS)) Allergy (Unknown, Verified 04/04/25 16:14) RASH tramadol Allergy (Unknown, Verified 04/04/25 16:16) Unknown flecainide Adverse Reaction (Intermediate, Verified 04/04/25 16:14) Dizziness amiodarone Adverse Reaction (Mild, Verified 04/04/25 16:14) Dizziness Digitalis Glycosides Adverse Reaction (Verified 04/04/25 16:14) Confusion adhesives Adverse Reaction (Uncoded 01/15/25 07:21) Unknown Medication List - Last Reconciled 04/04/25 by MYKEL Hernandez apixaban (Eliquis) 5 mg PO BID ascorbic acid (vitamin C) 1,000 mg PO DAILY atorvastatin 40 mg PO DAILY carvedilol 25 mg PO BID cholecalciferol (vitamin D3) (Vitamin D3) 25 mcg PO DAILY coenzyme Q10 100 mg PO DAILY diltiazem HCl CD 120 mg PO DAILY empagliflozin (Jardiance) 10 mg PO DAILY 90 days fexofenadine (Shea Allergy) 180 mg PO DAILY furosemide 40 mg PO DAILY gabapentin 600 mg PO BEDTIME ipratropium-albuterol 0.5 mg-3 mg(2.5 mg base)/3 mL 3 mL inhalation Q4-6H PRN magnesium 250 mg PO BEDTIME meloxicam 15 mg PO DAILY montelukast 10 mg PO BEDTIME multivitamin 1 tab PO DAILY omeprazole 40 mg PO BEDTIME ondansetron HCl 4 mg PO Q8H PRN valsartan 40 mg PO DAILY Tobacco use date assessed: 04/04/25 Fall risk assessment: 2 + Falls in past year Last assessed Fall Risk: 04/04/25 Dental Screening Dental Screen Date: 04/04/25 Did you have a dental visit in the last 12 months?: Yes Did you have a dental problem in the last 6 months where you did not have access to dental care?: No HPI HPI Comments History of Present Illness Details 79 year old female with CHF with an impl anted pace maker, HTN, Afib on Eliquis, HLD, GERD, BROOKE on CPAP, Chronic left arm pain who is S/P Cholecy stectomy in January here for follow up. Patient is followed by Cardiology. She was last seen by them in October. She was diagnosed with Gallstones and was scheduled for Laparascopic cholecystectomy in January at [facility] to allow for cardiology to be present. She states her BP was elevated while she was inpatient and they added Valsartan 40mg to her Carvedilol and Diltiazem. Her BP today was 140/82. She needs a refill of the Valsartan. Patient's last labs showed a mild anemia and elevated LFTS. She has pain in her left arm. She fell 2 years ago at work and has been followed by Orthopedics and workers comp. [facility] Medical History (Updated 04/04/25 @ 18:45 by MYKEL Hernandez) (HFpEF) heart failure with preserved ejection fraction Cardiac pacemaker in situ Cardiomyopathy Chronic heart failure with preserved ejection fraction (HFpEF) Chronic heart failure with preserved ejection fraction (HFpEF) Diastolic dysfunction Gallstones History of cardiomyopathy History of cardioversion HTN (hypertension) NSTEMI (non-ST elevated myocardial infarction) Paroxysmal atrial fibrillation Permanent atrial fibrillation Preoperative cardiovascular examination Pulmonary hypertension Pulmonary hypertension Surgical History History of back surgery History of colonoscopy (~01/22/24) Hx of cardiac cath Hx of hand surgery Hx of total hip arthroplasty S/P cardiac catheterization Family History Father Cancer Mother Stroke Brother Atrial fibrillation Sister Cardiovascular disease Atrial fibrillation Social History Household Members: None Housing: House Do you presently have visiting nurse or other home services: No Unable to assess alcohol history related to: Unknown Alcohol intake: former Comment: pt refusing bed alarm Patient Tobacco Use Status: Never used Tobacco e-Cigarette/Vaping Use: Never Used Second Hand Smoke Exposure: No Advance Directives Date on File: 12/18/22 service: No Current occupational status: retired Cognitive needs: No Hearing needs: No Vision needs: Yes (rx glasses) Questionnaire PHQ-9 Over the last 2 weeks, how often have you been bothered by any of the following problems? 1. Little interest or pleasure in doing things: not at all 2. Feeling down, depressed, or hopeless: not at all 3. Trouble falling or staying asleep, or sleeping too much: not at all 4. Feeling tired or having little energy: not at all 5. Poor appetite or overeating: not at all 6. Feeling bad about yourself - or that you are a failure or have let yourself or your family down: not at all 7. Trouble concentrating on things, such as reading the newspaper or watching television: not at all 8. Moving or speaking so slowly that other people could have noticed. Or the opposite - being so fidgety or restless that you have been moving around a lot more than usual: not at all 9. Thoughts that you would be better off or of hurting yourself in some way: not at all Total score: 0 Source: Developed by Drs. Ranjith Del Valle, Hilary De Paz, Rudolph Martínez and colleagues, with an educational rina from [employer]. Thrive Questionnaire Date Thrive assessed: 04/04/25 I am a: Patient Within the past 12 months, did the food you bought not last and you didn't have the money to get more?: Never true Within the past 12 months, did you worry whether your food would run out before you got money to buy more?: Never true Do you have trouble paying for medicines?: No Do you have trouble getting transportation to medical appointments?: No Do you have trouble paying your heating and electricity bill?: No Do you have trouble taking care of your child, family member or friend?: No Do you have trouble with day-to-day activities such as bathing, preparing meals, shopping, managing finances, etc.?: No Are you currently unemployed and looking for a job?: No Are you interested in more education?: No THRIVE Score: 0 AUDIT C Alcohol Use Questionnaire (AUDIT-C) 1. How often do you have a drink containing alcohol?: Never 3. How often do you have six or more drinks on one occasion?: Never Total Score: 0 BERKLEY-7 AMB Questionnaire BERKLEY-7 Date BERKLEY - 7 assessed: 04/04/25 Feeling nervous, anxious, or on edge: 0 = Not at all Not being able to stop or control worryin = Not at all Worrying too much about different things: 0 = Not at all Trouble relaxin = Not at all Being so restless that it is hard to sit still: 0 = Not at all Becoming easily annoyed or irritable: 0 = Not at all Feeling afraid as if something awful might happen: 0 = Not at all Total BERKLEY-7 score (0-4 normal; 5-9 mild; 10-14 moderate; 15-21 severe): 0 Source: Developed by Drs. Ranjith Del Valle, Hilary De Paz, Rudolph Martínez and colleagues, with an educational rina from [employer]. Review of Systems Const Details: CONSTITUTIONAL Negative HEAD/NECK Negative EAR/NOSE/MOUTH/THROAT Negative RESPIRATORY Negative CARDIOVASCULAR Negative GASTROINTESTINAL Negative MUSCULOSKELETAL Left arm pain NEUROLOGICAL Numbness and weakness in left arm PSYCHIATRIC Negative Physical exam (Primary Care) Vital Signs: Last Vital Signs Temp 97.1 F 04/04/25 16:11 Pulse 84 04/04/25 16:11 BP 140/82 H 04/04/25 16:11 Pulse Ox 97 04/04/25 16:11 Oxygen Delivery Method Room Air 04/04/25 16:11 BMI result Body Mass Index 29.0 GENERAL Well developed, Well nourished, in no apparent distress HEENT Head-Normocephalic Eyes- PERRLA, EOMI, Conjuctiva clear, lids WNL Neck- Supple, No lymphadenopathy, thyroid WNL RESPIRATORY Normal I:E, Clear to auscultation CARDIOVASCULAR Regular, rate and rhythm, No murmurs or rubs GASTROINTESTINAL Soft, nontender, normal bowel sounds, no masses MUSCULOSKELETAL Decreased ROM on left shoulder and elbow NEUROLOGICAL Gait normal PSYCHIATRIC Oriented to person, place and time Mood and affect WNL Appearance WNL Speech WNL Thought processes WNL Tobacco/Smoking Status: Tobacco use Status Tobacco use date assessed 04/04/25 04/04/25 16:23 Patient Tobacco Use Status Never used Tobacco 04/04/25 16:18 e-Cigarette/Vaping Use Never Used 04/04/25 16:23 PHQ-9: PHQ-9 Score PHQ-9: Total score 0 04/04/25 16:23 Thrive Assessment: Date of Thrive Assessment Date Thrive assessed 04/04/25 04/04/25 16:23 Coding Level of Care Code Established Pt Est Pt Level 4 (42635) Patient Type Established Diagnoses (HFpEF) heart failure with preserved ejection fraction I50.30 Anemia D64.9 Anemia type: other cause Primary hypertension I10 Hypertension type: primary hypertension Elevated LFTs R79.89 Left arm pain M79.602 Time Spent (min) 35 Comment Time spent reviewing chart, H&P, refilling medication, ordering labs, and arranging f/u Assessment & Plan Assessment & Plan (1) (HFpEF) heart failure with preserved ejection fraction: Code(s): I50.30 - Unspecified diastolic (congestive) heart failure Category: Medical Plan: Patient to continue to followup with Cardiology (2) Anemia: Code(s): D64.9 - Anemia, unspecified Category: Medical Qualifiers: Anemia type: other cause Plan: Will check CBC. Patient to follow up in 3 months or sooner if needed. (3) HTN (hypertension): Comment: Patient brought BP readings from home. Most were with in goal Code(s): I10 - Essential (primary) hypertension Category: Medical Qualifiers: Hypertension type: primary hypertension Qualified Code(s): I10 - Essential (primary) hypertension Plan: * Will refill Valsartan. Patient to continue Ditiazem and Carvedilol. Patient to follow up in 3 months or sooner if needed. (4) Elevated LFTs: Code(s): R79.89 - Other specified abnormal findings of blood chemistry Plan: Will check labs. Patient to follow up in 3 months or sooner if needed. (5) Left arm pain: Code(s): M79.602 - Pain in left arm Plan: Patient to contiue to follow up with Ortho Orders: Orders Complete Blood Count Auto Diff Today D64.9 - Anemia, unspecified Comprehensive Met. Panel Today R79.89 - Other specified abnormal findings of blood chemistry, Z79.899 - Other intermediate manager (current) drug therapy Medications: New valsartan 40 mg PO DAILY 90 tabs 1RF for blood pressure
[2025-04-04 16:11] VITALS: BP 140/82; PULSE 84; TEMP 36.2; O2SAT 97; BMI 29.0
--- OUTSIDE RECORDS SUMMARY | 2025-04-04 16:38 | XMS_ITS | Clinical Summary ---
Author Organization [facility] Address [address] [place] [address] Phone Care Team Providers Care Chummer Name Role Phone Yair Huff MD Primary Care Provider [phone] Social History Tobacco Use Types Packs/Day Years [...] Vaccine (1 - 2023-2 5 season) 2024 Cholesterol Screening (Lipid Panel) 06/03/2024 Falls Risk Assessment 06/03/2024 Medicare Annual Wellness Visit 06/03/2024 Osteoporosis Screening (Bone Density Screening) 06/03/2024 Social Influencers of Health Screening 06/03/2024 Hypertension/CHF/CAD Annual BMP Blood Test 07/13/2024 Depression Screening 08/10/2024 Influenza Vaccine (#1) 2025 HIB Vaccines Aged Out No longer [...] [employer] [place] MED[employer] ADVANT[employer] Care Teams Chummer Relationship Specialty Start Date End Date Yair Huff MD [address] [place] [address] [address] [place] [address] PCP - General Internal Medicine 07/12/24
--- OUTSIDE RECORDS SUMMARY | 2025-04-04 16:38 | XMS_ITS ---
Author Name [facility] Organization Unknown History of Medication Use Medication Directions Dispensed Refills Start Date End Date Stat us montelukast (SINGULAIR) 10 MG tablet Take 1 tablet (10 mg total) by mouth daily as needed. 08/27/2022 active carvedilol (COREG) 25 MG tablet Take 1 tablet (25 mg total) by mouth 2 (two) times a day. 07/21/2022 active furosemide (LASIX) 40 MG tablet Take 1 tablet (40 mg total) by mouth every morning. 06/30/2022 active atorvastatin (LIPITOR) 40 MG tablet Take 1 tablet (40 mg total) by mouth daily. 06/23/2022 active coenzyme Q10 100 MG capsule Take 1 capsule (100 mg total) by mouth daily. active fexofenadine (MARIBELL) 180 MG tablet Take 1 tablet (180 mg total) by mouth daily. Administer with water only; do not administer with fruit juices. active Multiple Vitamins-Minerals (multivitamin with minerals) tablet Take 1 tablet by mouth daily. active Allergies Allergen Reaction Severity Comment Documented Date Source Statu s ASPIRIN UNKNOWN/PATIENT AND FAMILY UNABLE TO DEFINE Moderate 09/24/2022 [facility] acti ve ADHESIVES/TAPE UNKNOWN/PATIENT AND FAMILY UNABLE TO DEFINE Moderate [facility] Problems Problem Status Onset Date Problem Type Date of Resoluti on Source Persistent atrial fibrillation (HCC) active EncounterDiagnosisAct H[facility] Hypertension, unspecified type active EncounterDiagnosisAct HH CCT Encounters Encounter Type Encounter Reason Primary Diagnosis Location Date Ambulatory Other persistent atrial fibrillation [facility] 09/24/2022 Care Team Organization Name Specialty Phone Email Start Date End Da te [facility] 09/24/2022 [facility] 09/24/2022
--- OUTSIDE RECORDS SUMMARY | 2025-04-04 16:38 | XMS_ITS | Clinical Summary ---
Author Organization [facility] Address [address] [place] [address] Care Team Providers Care Power Transformer Repairer Name Role Phone Yair Huff MD Primary Care Provider [phone] Allergies Active Allergy Reactions Criticality Noted Date [...] Patients (1 - 1-dose 75+ series) 2019 COVID-19 Vaccine ( - 2023-2 5 season) 2024 Influenza Vaccine 03/10/2025 Hepatitis B Vaccines Aged Out No long er eligible based on patient's age to complete this topic Insurance MEDICARE Care Teams Power Transformer Repairer Relationship Specialty Start Date End Date Yair Huff MD [address] [place] [address] [place] [address] PCP - General Internal Medicine 09/23/22
--- OUTSIDE RECORDS SUMMARY | 2025-04-04 16:39 | XMS_ITS | Patient Health Record ---
Author Organization [facility] Address [address] [place] [address] Care Team Providers Care Shipper/Receiver Name Role Phone Refugio (RETIRED) Yair CAOSTA Primary Care Provider Unavailable Tristen Zafar Jr Unavailable [phone] Allergies Allergen (clinical drug ingredient) Drug/Non Drug Allergy documented on EMR Reaction Allergy Type Onset Date Status aspirin aspirin (uncoded) Unknown Allergy Ac tive Substance with sulfonamide structure and antibacterial mechanism of action (substance) sulfa (uncoded) Unknown Allergy Active Environmental allergies (uncoded) Unknown Allergy Active Reason For Referral No Information Medications Medication SIG (Take, Route, Frequency, Duration) Notes Start Date End Date Status Colyte with Flavor Packs 240 GM As directed Orally Over the specified time. for 1 day(s) 04/18/2016 Active Bisoprolol-hydroCHLOROthi azide Not-Taking Omeprazole 20mg Acti ve Bqjikh-Hrhvf-Birfqw-Fish Oil Not-Taking Quinapril HCl 40mg A ctive Aspirin 81mg Not-Nick ing Gabapentin 300mg Act pablo Pradaxa 150 MG 1 capsule Orally Twi ce a day Active Levsin/SL 0.125 MG 1 tablet under the tongue and allow to dissolve before meals as needed Sublingual every 4 hrs for 30 days 11/18/2012 Not-Taki ng Montelukast Sodium A ctive Metoprolol Tartrate Active Taztia XT Active Multivitamin Active Meloxicam Active Singulair Active Shea Active dilTIAZem HCl 240mg Not-Taking Problems Problem Type SNOMED Code ICD Code Onset Dates Problem Status W/U Status Risk Notes Problem 701712588 Colon cancer screening (Z12.11) Active confirmed Problem [id number] Gastroesophageal reflux disease without esophagitis (K21.9) Active confirmed Problem Diverticulosis o f colon (without mention of hemorrhage) (K57.30) Active confirmed Plan Of Treatment Future Test Test Name Order Date COLONOSCOPY 03/06/2016 COLONOSCOPY 04/18/2016 Insurance Providers Payer Name Payer Address Payer Phone Subscriber Number Group Number Insured Name Patient Relationship to Insured Coverage Start Date Coverage End Date [facility] [address] [place] [id number] ANGY PETERSON Self - patient is the insured Medical (General) History Medical History History ICD Code Colonoscopy 10/01/2010 GERD Hypertension Afib with rapid ventricular response vertigo Arthritis sinus shirin cardia Surgical History Surgery Date(Month/Year) Wrist and thumb surgery back surgery
== END 2025-04-04 16:52 | disposition home or self-care (01) ==
LOC: HO.HMCHD 15:53
PROVIDERS: PCP Family Medicine; Visit Provider Physician Assistant Medical
DX: I11.0 Hypertensive heart disease with heart failure (principal); I50.30 Unspecified diastolic (congestive) heart failure; D64.9 Anemia, unspecified; R79.89 Other specified abnormal findings of blood chemistry; M79.602 Pain in left arm

== ENCOUNTER → 2025-04-04 15:52 | Outpatient (BNVA) | payer MEDICARE, SELFPAY | PROVIDERS: PCP Family Medicine; Visit Provider Physician Assistant Medical | DX: I11.0 Hypertensive heart disease with heart failure (principal); I50.30 Unspecified diastolic (congestive) heart failure; D64.9 Anemia, unspecified; R79.89 Other specified abnormal findings of blood chemistry; M79.602 Pain in left arm | CPT/HCPCS: 96127; 99212 ==

== ENCOUNTER 2025-04-13 10:06 | Outpatient (REF) | payer MEDICARE, SELFPAY ==
--- OUTSIDE RECORDS SUMMARY | 2024-01-22 09:20 | XMS_ITS ---
Author Organization [facility] Address [address] [place] [address] Care Team Providers Care Leather Toggler Name Role Phone Refugio (RETIRED) , Yair Primary Care Provider Unavailable Tristen Zafar Jr REASON FOR VISIT lower gi bleed Encounters Encounter Location Date Provider Diagnosis [facility] [place] [address] [place], [place] [phone] 01/22/2024 Tristen Zafar Jr Plan Of Treatment No Information Progress Notes * BRIDGETTE PETERSONEDOB:1944 (79 yo F)Acc No.[id number]:01/22/2024 COLON WITH MAC Patient: ANGY GOYAL Provider: Teja Zafar MD :1945 A ge:78 Y S ex:Female Date:01/22/2024 Address:[address] [place], [place] [id number] Pcp:Yair Huff (RETIRED) MD Subjective: * Chief [...] 01/22/2024 Generated for Printi ng/Faxing/eTransmitting on: 0 04/13/2025 11:18 AM EDT
--- OUTSIDE RECORDS SUMMARY | 2024-05-17 10:14 | XMS_ITS | Encounter Summary ---
Author Organization [facility] Address [address] [place] [address] Care Team Providers Care Prototype Fabricator Name Role Phone Unavailable Primary Care Provider Unavailabl e Encounter Details Date Type Department Care Team (Late st Contact Info) Description 05/17/2024 10:14 AM EDT Hospital Encounter [facility]NC[facility] CONVERSION ONLY Jonn Michael MD [address] [place] [id number] Social History Tobacco Use Types Packs/Day Years Used Date Smoking Tobacco: Never Assessed Comments Unknown Sex and Gender Information Value Date Recorded Sex Assigned at Not on file Legal Sex Female 2:43 PM EST Gender Identity Not on file Sexual Orientation Not on file documented as of this encounter Procedure Notes * Kassie Brooks NP - 05/17/2024 11:14 AM EDT Procedure Note Encounter Date & Time 05/17/24 11:13 Procedure Note Pacemaker pulse generator programming pre and post-MRI, testing pre and post-MRI and monitoring for the duration of MRI. The patient has a Medtronic single chamber pacemaker. The device was programmed to a VOO mode for the duration of MRI. There were no EKG issues during the MRI. Testing of the device post-MRI did not show any significant change in sensing lead impedances or pacing thresholds. IMPRESSION: Normal device function. KASSIE BROOKS May 17, 2024 11:14 documented in this encounter Plan of Treatment Not on file documented as of this encounter Visit Diagnoses Not on filedocumented in this encounter
[2025-04-13 10:20] LABS: MANUAL DIFF FLAG NO
[2025-04-13 10:51] LABS: Hematocrit 45.4 % (37.0-47.0); Hemoglobin 15.4 g/dl (12.0-16.0); Imm Gran Abs Auto 0.02 X10*3/uL (0.00-0.03); Imm Gran Pct Auto 0.3 % (0.0-0.4); Lymphocytes Absolute Auto 1.3 X10*3/uL (1.2-4.9); Mean Corpuscular HGB Conc 33.9 g/dl (31.0-35.0); Mean Corpuscular Hemoglobin 32.5 pg (27.0-33.0); Mean Corpuscular Volume 95.8 fL (80.0-98.0); NRBC Abs Auto 0.000 X10*3/uL (0.0-0.012); NRBC Pct Auto 0.0 /100WBC (0.0-0.2); Platelet Count 182 X10*3/uL (160-400); Red Blood Count 4.74 X10*6/uL (4.20-5.50); White Blood Count 5.9 X10*3/uL (4.8-10.8)
--- OUTSIDE RECORDS SUMMARY | 2025-04-13 11:18 | XMS_ITS | Patient Health Record ---
Author Organization [facility] Address [address] [place] [address] Care Team Providers Care Wood Inspector Name Role Phone Refugio (RETIRED) Yair ACOSTA Primary Care Provider Unavailable Tristen Zafar Jr Unavailable Allergies Allergen (clinical drug ingredient) Drug/Non Drug [...] Bisoprolol-hydroCHLOROthi azide Not-Taking Omeprazole 20mg Acti ve Vgpnlf-Yiquk-Hsdmxg-Fish Oil Not-Taking Quinapril HCl 40mg A ctive [...] Problem Status W/U Status Risk Notes Problem [id number] Colon cancer screening (Z12.11) Active confirmed Problem 157873036 Gastroesophageal reflux disease without esophagitis (K21.9) Active confirmed Problem Diverticulosis of colon (finding) (603738548) Diverticulosis of colon (without mention of hemorrhage) (K57.30) Active confirmed Plan Of Treatment Future Test Test Name Order Date COLONOSCOPY 03/06/2016 COLONOSCOPY 04/18/2016 Insurance Providers Payer Name Payer Address Payer Phone Subscriber Number Group Number Insured Name Patient Relationship to Insured Coverage Start Date Coverage End Date [employer] [address] [place] [phone] [id number] ANGY PETERSON Self - patient is the insured Medical (General) History Medical History History ICD Code Colonoscopy 10/01/2010 GERD Hypertension Afib with rapid ventricular response vertigo Arthritis sinus shirin cardia Surgical History Surgery Date(Month/Year) Wrist and thumb surgery back surgery
--- OUTSIDE RECORDS SUMMARY | 2025-04-13 11:18 | XMS_ITS | Clinical Summary ---
Author Organization [facility] Address [address] [place] [address] Care Team Providers Care Project Engineering Director Name Role Phone Yair Huff MD Primary Care Provider [phone] Allergies Active Allergy Reactions Criticality Noted Date [...] Health Maintenance Due Date Last Done Comments Advance Care Planning 1945 DTaP/Tdap/Td Vaccines (1 - Tdap) 1963 Pneumococcal [...] patient's age to complete this topic Insurance [facility] Care Teams Project Engineering Director Relationship Specialty Start Date End Date Yair Huff MD [address] [place] [address] [place] [address] PCP - General Internal Medicine 09/23/22
--- OUTSIDE RECORDS SUMMARY | 2025-04-13 11:18 | XMS_ITS | Clinical Summary ---
Author Organization [facility] Address [address] [place] [address] Phone Care Team Providers Care Distributor Operator Name Role Phone Yair Huff MD Primary Care Provider [phone] Social History Tobacco Use Types Packs/Day Years [...] [employer] [place] MED[employer] ADVANTAGE Care Teams Distributor Operator Relationship Specialty Start Date End Date Yair Huff MD [address] [place] [address] [address] [place] [address] PCP - General Internal Medicine 07/12/24
[2025-04-13 11:26] LABS: Alanine Aminotransferase 24 U/L (0-31); Albumin Level 4.4 g/dL (3.5-5.0); Alkaline Phosphatase 114 U/L (39-117); Anion Gap 13 (12-20); Aspartate Amino Transferase 27 U/L (5-31); Blood Urea Nitrogen 20 mg/dL (9-16); Calcium 9.0 mg/dL (8.4-10.2); Carbon Dioxide 26 mmol/L (22-29); Chloride 109 mmol/L (96-108); Estimated Glomerular Filt Rate 59; Potassium 3.9 mmol/L (3.3-5.1); Sodium 144 mmol/L (135-145); Total Protein 7.0 g/dL (6.5-8.0)
== END 2025-04-13 10:07 | disposition home or self-care (01) ==
LOC: HO.LAB 10:06
PROVIDERS: PCP Physician Assistant Medical; Visit Provider Physician Assistant Medical
DX: R79.89 Other specified abnormal findings of blood chemistry (principal); D64.9 Anemia, unspecified; Z79.899 Other long term (current) drug therapy
CPT/HCPCS: 36415; 80053; 85025

== ENCOUNTER → 2025-04-25 14:00 | Outpatient (REF) | payer MEDICARE, SELFPAY ==
--- OUTSIDE RECORDS SUMMARY | 2024-01-22 09:20 | XMS_ITS ---
Author Organization [facility] Address [address] [place] [address] Care Team Providers Care Brick Loader Name Role Phone Refguio (RETIRED) , Yair Primary Care Provider Unavailable Tristen Zafar Jr [phone] REASON FOR VISIT lower gi bleed Encounters Encounter Location Date Provider Diagnosis [facility] [place] Inpatient [address] [place], [place] [id number] 01/22/2024 Tristen Zafar Jr Plan Of Treatment No Information Progress Notes * BRIDGETTE PETERSONEDOB:1944 (79 yo F)Acc No.[id number]:01/22/2024 COLON WITH MAC Patient: ANGY GOYAL Provider: Teja Zafar MD :1945 A ge:78 Y S ex:Female Date:01/22/2024 Address:[address] [place], [place] [id number] Pcp:Yair Huff (RETIRED) MD Subjective: * Chief Complaints: * 1 . Lower gi bleed. * Medical History: Objective: * Vitals: Assessment: Plan: * Treatment: * * The named appointment provid er may or may not be the originator of this progress note, and it is not deemed complete until electronically signed by the appointment provider. Sign off status: Pending * Provider: Teja Zafar MD Date: 0 01/22/2024 Generated for Printi ng/Faxing/eTransmitting on: 0 04/25/2025 05:47 PM EDT
--- OUTSIDE RECORDS SUMMARY | 2024-05-17 10:14 | XMS_ITS | Encounter Summary ---
Author Organization [facility] Address [address] [place] [address] Care Team Providers Care Order Desk Caller Name Role Phone Unavailable Primary Care Provider Unavailabl e Encounter Details Date Type Department Care Team (Late st Contact Info) Description 05/17/2024 10:14 AM EDT Hospital Encounter [facility]NCOUN[facility] CONVERSION ONLY Jonn Michael MD [address] [place] [phone] Social History Tobacco Use Types Packs/Day Years [...]
--- NOTE | 2025-04-25 14:04 | CA_ITS ---
Transthoracic Echocardiogram Patient (Last, First, Middle): Chiquita Meeks P Gender: F Date of : 1945 Age: 79 Procedure Date: 04/25/2025 Procedure Type: Transthoracic Echocardiogram Location: OP Height: 165. cm Weight: 78.93 kg BSA: 1.86 m2 Heart Rate: 63 bpm BP: 140 / 78 mmHg Push Button Switch Assembler: SB Referring MD: Franco Brennan MD Symptoms: I50.30 - Unspecified diastolic (congestive) heart failure Study Quality: Adequate ECG Rhythm: Sinus Conclusions: - The left ventricular systolic function is normal. The calculated ejection fraction is 56% by biplane method. - Severe basal septal hypertrophy with a thickness of 2 cm. - Evidence suggests grade III (severe) diastolic dysfunction. - There is moderate mitral annular calcification. Findings Left Ventricle Normal left ventricular cavity size. There is mildly increased left ventricular wall thickness. The left ventricular systolic function is normal. The calculated ejection fraction is 56% by biplane method. There is no evidence of regional wall motion abnormalities. Evidence suggests grade III (severe) diastolic dysfunction. Severe basal septal hypertrophy with a thickness of 2 cm. Right Ventricle Normal right ventricular cavity size and systolic function. Atria The left atrium is moderately dilated. The right atrium is normal in size. Aortic Valve There is a normal trileaflet aortic valve. There is no aortic valve stenosis. Trace to mild aortic regurgitation. Mitral Valve There is moderate mitral annular calcification. There is trace mitral valve regurgitation. There is no mitral valve stenosis. Pulmonic Valve The pulmonic valve is likely normal. Tricuspid Valve There is trace tricuspid valve regurgitation. There is no evidence of pulmonary hypertension. Great Vessels The asc aorta is normal in size. Venous The inferior vena cava is normal in size and collapses greater than 50% with inspiration. Pericardium/Pleural There is no evidence of pericardial effusion. Prior Study Comparison No significant change compared to prior study dated: 03/09/2024. Measurements 2D Linear Measurements IVSd: 2.01 0.6-0.9/0.6-1.0 cm LVIDd: 4.29 3.9-5.3/4.2-5.9 cm LVIDs: 2.98 2.0-3.6 cm LVPWd: 1.10 0.7-1.1 cm LA Diam: 4.26 2.7-3.8/3.0-4.0 cm LAIDs Index: 2.29 1.5-2.3 cm/m2 LV Mass: 272.00 67-162/88-224 g LVOT Diam: 2.10 3.0+(-)1.3 cm 2D Volumes RA ESV A/L: 17.60 19-21 ML/M2 2D Systolic Function EF 4C: 59.00 >55% EF 2C: 53.00 >55% EF BiP: 56.00 >55% Mitral Valve MV Pk E: 0.84 MV PK A: 0.25 MV Decel Time: 213.00 E/A: 3.36 E'Lateral: 10.00 E'Medial: 4.75 E/E' Med: 17.67 E/E' Lat: 8.40 Aortic Valve AoV Pk Toney: 1.15 AoV VTI: 0.22 AoV Pk Grad: 5.30 Aov Mn Grad: 3.00 BRENDAN Cont.VTI: 2.04 AI [place]: 1.57 LVOT LVOT VTI: 0.13 LVOT Pk Grad: 1.70 LVOT Mn Grad: 0.90 LVOT Diam: 2.10 Diastolic Function MV Pk E: 0.84 MV Pk A: 0.25 E/A: 3.36 E'Medial: 4.75 E/E' Med: 17.67 E' Laterial: 10.00 E/E' Lat: 8.40 Right Ventricle TAPSE (mm): 15.20 TVS' Toney: 9.10 Tricuspid Valve TR Pk Toney: 2.16 TR Pk Grad: 18.70 RA Press: 3.00 RVSP: 22.00 Great Vessels Aorta Sinus of Valsalva: 3.21 2.0-3.5 cm Ao Asc: 3.06 2.1-3.4 cm Pulmonary Valve Peak PV Grad: 1.70 PV Mn Grad: 0.90 Updated in Other Vendor System with Status of Final Silvino Can MD electronically signed on 04/28/2025 8:59:23 AM with status of Final
--- OUTSIDE RECORDS SUMMARY | 2025-04-25 17:47 | XMS_ITS | Clinical Summary ---
Author Organization [facility] Address [address] [place] [address] Phone Care Team Providers Care Hunting And Fishing Guide Name Role Phone Yair Huff MD Primary Care Provider [phone] Social History Tobacco Use Types Packs/Day Years [...] nts (1 - 1-dose 75+ series) 2019 Cholesterol Screening (Lipid Panel) 06/03/2024 Falls Risk Assessment 06/03/2024 Medicare Annual Wellness Visit 06/03/2024 Osteoporosis Screening (Bone Density Screening) 06/03/2024 Social Influencers of Health Screening 06/03/2024 Hypertension/CHF/CAD Annual BMP Blood Test 07/13/2024 Depression Screening 08/10/2024 COVID-19 Vaccine ( - 2023-2 5 season) 2025 Influenza Vaccine (#1) 2025 HIB Vaccines Aged [...] [employer] Care Teams Hunting And Fishing Guide Relationship Specialty Start Date End Date Yair Huff MD [address] [place] [address] [address] [place] [address] PCP - General Internal Medicine 07/12/24
--- OUTSIDE RECORDS SUMMARY | 2025-04-25 17:47 | XMS_ITS | Patient Health Record ---
Author Organization [facility] Address [address] [place] [address] Care Team Providers Care Irrigator Valve Pipe Name Role Phone Refugio (RETIRED) Yair ACOSTA [...] Bisoprolol-hydroCHLOROthi azide Not-Taking Omeprazole 20mg Acti ve Ajjviu-Qrvtx-Qpugth-Fish Oil Not-Taking Quinapril HCl 40mg A ctive [...] Problem Status W/U Status Risk Notes Problem [id number] Colon cancer screening (Z12.11) Active confirmed Problem 714514753 Gastroesophageal reflux disease without esophagitis (K21.9) Active confirmed Problem Diverticulosis of colon (finding) (188825108) Diverticulosis of colon (without mention of hemorrhage) (K57.30) Active confirmed Plan Of Treatment Future Test Test Name Order Date COLONOSCOPY 03/06/2016 COLONOSCOPY 04/18/2016 Insurance Providers Payer Name Payer Address Payer Phone Subscriber Number Group Number Insured Name Patient Relationship to Insured Coverage Start Date Coverage End Date [facility] [address] [place] [phone] [id number] ANGY PETERSON Self - patient is the insured Medical (General) History Medical History History ICD Code Colonoscopy 10/01/2010 GERD Hypertension Afib with rapid ventricular response vertigo Arthritis sinus shirin cardia Surgical History Surgery Date(Month/Year) Wrist and thumb surgery back surgery
--- OUTSIDE RECORDS SUMMARY | 2025-04-25 17:47 | XMS_ITS | Clinical Summary ---
Author Organization [facility] Address [address] [place] [address] Care Team Providers Care Escrow Agent Name Role Phone Yair Huff MD Primary Care Provider [phone] Allergies Active Allergy Reactions Criticality Noted Date [...] - 1-dose 75+ series) 2019 Influenza Vaccine 03/10/2025 COVID-19 Vaccine ( - 2023-2 5 season) 2025 Hepatitis B Vaccines Aged Out No long er eligible based on patient's age to complete this topic Insurance [facility] Care Teams Escrow Agent Relationship Specialty Start Date End Date Yair Huff MD [address] [place] [address] [place] [address] PCP - General Internal Medicine 09/23/22
== END ==
LOC: HO.CARD 14:00
PROVIDERS: Visit Provider Internal Medicine Cardiovascular Disease
DX: I50.30 Unspecified diastolic (congestive) heart failure (principal)
CPT/HCPCS: 93306

== ENCOUNTER → 2025-04-25 14:04 | Outpatient (BNV) | payer MEDICARE, SELFPAY | PROVIDERS: Visit Provider Internal Medicine | DX: I42.2 Other hypertrophic cardiomyopathy (principal); I50.9 Heart failure, unspecified; I34.81 Nonrheumatic mitral (valve) annulus calcification | CPT/HCPCS: 93306 ==

== ENCOUNTER 2025-05-01 14:35 | Outpatient (AMB) | payer MEDICARE, SELFPAY ==
[2025-05-01 14:47] VITALS: BP 116/74; PULSE 65; BMI 29.3
--- NOTE | 2025-05-01 14:47 | MHC.OFFVIS ---
Vital Signs 05/01/25 14:47 Height 5 ft 5 in Weight 176 lb 5.917 oz BMI 29.3 BP 116/74 Blood Pressure Location Lt brachial Position Sitting Pulse 65 Intake Visit Reasons: 6m follow up Intake Note: 6 month follow-up with [facility] had gallbladder out at [facility] in January Senior Business Architect Required: No Allergies aspirin (ASPIRIN) Allergy (Unknown, Verified 04/04/25 16:14) RASH codeine Allergy (Unknown, Verified 04/04/25 16:15) Unknown ibuprofen Allergy (Unknown, Verified 04/04/25 16:18) Unknown nitroglycerin Allergy (Unknown, Verified 04/04/25 16:17) Unknown sertraline (From Zoloft) Allergy (Unknown, Verified 04/04/25 16:17) Unknown Sulfa (Sulfonamide Antibiotics) (SULFA (SULFONAMIDE ANTIBIOTICS)) Allergy (Unknown, Verified 04/04/25 16:14) RASH tramadol Allergy (Unknown, Verified 04/04/25 16:16) Unknown flecainide Adverse Reaction (Intermediate, Verified 04/04/25 16:14) Dizziness amiodarone Adverse Reaction (Mild, Verified 04/04/25 16:14) Dizziness Digitalis Glycosides Adverse Reaction (Verified 04/04/25 16:14) Confusion adhesives Adverse Reaction (Uncoded 01/15/25 07:21) Unknown Medication List - Last Reconciled 05/01/25 by Franco Brennan MD apixaban (Eliquis) 5 mg PO BID ascorbic acid (vitamin C) 1,000 mg PO DAILY atorvastatin 40 mg PO DAILY carvedilol 25 mg PO BID cholecalciferol (vitamin D3) (Vitamin D3) 25 mcg PO DAILY coenzyme Q10 100 mg PO DAILY diltiazem HCl CD 120 mg PO DAILY empagliflozin (Jardiance) 10 mg PO DAILY 90 days fexofenadine (Shea Allergy) 180 mg PO DAILY furosemide 40 mg PO DAILY gabapentin 300 mg PO BID gabapentin 600 mg PO BEDTIME ipratropium-albuterol 0.5 mg-3 mg(2.5 mg base)/3 mL 3 mL inhalation Q4-6H PRN magnesium 250 mg PO BEDTIME meloxicam 15 mg PO DAILY multivitamin 1 tab PO DAILY omeprazole 40 mg PO BEDTIME ondansetron HCl 4 mg PO Q8H PRN valsartan 40 mg PO DAILY HPI Comments Details: Chiquita comes for follow-up. In January she was hospitalized for acute cholecystitis and was hospitalized for 8 days eventually needing surgery at [facility]. She comes for follow-up. She says ever since the hospitalization she has been tired and fatigue. Complains of exertional shortness of breath. Although she has no orthopnea, PND, leg edema. Takes all her medications. Her recent echocardiogram showed normal LV ejection fraction with grade 3 diastolic dysfunction with severe left atrial enlargement without major valvular abnormality. She denies any lightheadedness, syncope. No exertional chest pain. No bleeding issues or neurologic events. [facility] Medical History (Updated 05/01/25 @ 17:00 by Franco Brennan MD) Paroxysmal atrial fibrillation Permanent atrial fibrillation Gallstones (HFpEF) heart failure with preserved ejection fraction Cardiac pacemaker in situ Preoperative cardiovascular examination NSTEMI (non-ST elevated myocardial infarction) Pulmonary hypertension Chronic heart failure with preserved ejection fraction (HFpEF) Chronic heart failure with preserved ejection fraction (HFpEF) Cardiomyopathy Pulmonary hypertension Diastolic dysfunction History of cardiomyopathy HTN (hypertension) History of cardioversion Surgical History History of colonoscopy (~01/22/24) S/P cardiac catheterization Hx of total hip arthroplasty Hx of cardiac cath Hx of hand surgery History of back surgery Family History Father Cancer Mother Stroke Brother Atrial fibrillation Sister Cardiovascular disease Atrial fibrillation Social History Household Members: None Housing: House Do you presently have visiting nurse or other home services: No Unable to assess alcohol history related to: Unknown Alcohol intake: former Comment: pt refusing bed alarm Patient Tobacco Use Status: Never used Tobacco e-Cigarette/Vaping Use: Never Used Second Hand Smoke Exposure: No Advance Directives Date on File: 12/18/22 service: No Current occupational status: retired Cognitive needs: No Hearing needs: No Vision needs: Yes (rx glasses) Review of Systems Const Denies chills, Denies fatigue, Denies fever(s), Denies frequent falls, Denies weakness, Denies weight gain and Denies weight loss ENT Denies dizziness Card Denies chest pain, Denies leg edema, Denies lightheadedness, Denies palpitations, Denies dyspnea, Denies dyspnea on exertion, Denies orthopnea and Denies other (loss of consciousness) Resp Denies cough, Denies dyspnea and Denies dyspnea on exertion GI Denies hematochezia and Denies change in stool character Musc Denies abnormal gait, Denies muscle weakness, Denies numbness, Denies radiating pain into limb and Denies tingling Neuro Denies abnormal gait, Denies dizziness, Denies frequent falls, Denies numbness, Denies tingling and Denies weakness Endo Denies fatigue and Denies palpitations Physical Exam Vital Signs: Last Vital Signs Pulse 65 05/01/25 14:47 BP 116/74 05/01/25 14:47 BMI result Body Mass Index 29.3 Const General: cooperative, comfortable, no acute distress, alert and awake Nutritional Appearance: overweight Orientation/consciousness: patient oriented x3 Limitations: other limitations (In a stretcher) Neck Neck: Yes trachea midline, Yes supple and Yes no JVD Chest Chest palpation & inspection: abnormal inspection of the chest kyphotic and scoliotic Resp Effort & Inspection: normal respiratory effort Auscultation: clear to auscultation bilaterally and diminished lung sounds Cardio Jugular venous distension: no JVD Palpation: normal PMI Rate: regular rate Rhythm: regular rhythm Heart sounds: S1 normal heart sound present and S2 normal heart sound present GI Auscultation: normal bowel sounds Skin General skin exam: no rashes or lesions noted Neuro General: patient oriented x3 and no focal motor deficits Extrem General: Yes no clubbing, cyanosis or edema Psych Appearance: grossly normal Office Procedures Cardiac Device Check Cardiac Device Check Details: Single-chamber Medtronic pacemaker in place, programmed in VVI at 60 beats per minute. Ventricular pacing 100% time. Ventricular sensing could not be checked. Pacing thresholds adequate and reprogrammed to enhance battery life. Pacing lead impedance is stable. Battery life is excellent 27678-LB Cardiac Device Check, leadless/single lead pacemaker Procedure code (CPT) selection complete EKG Details: EKGs shows normal sinus rhythm with complete heart block with V pacing [id number], Complete Assessment & Plan Assessment & Plan (1) (HFpEF) heart failure with preserved ejection fraction: Code(s): I50.30 - Unspecified diastolic (congestive) heart failure Category: Medical Plan: Heart failure preserved ejection fraction with advanced LV diastolic dysfunction with increased symptoms of fatigue and shortness of breath. She has persistent RV pacing related to AV estiven ablation. She has AV dyssynchrony as she is normal sinus rhythm but with complete heart block. This could explain some of the symptoms. Clinically appears to be euvolemic and well compensated. At this point time continue current diuretic dose as well as Jardiance therapy. Signs and symptoms of heart failure were discussed. Will discuss with the EP for possibly upgrading to a dual-chamber device given that she has preserved sinus rhythm and can reestablish her AV synchrony. (2) Paroxysmal atrial fibrillation: Code(s): I48.0 - Paroxysmal atrial fibrillation Category: Medical Plan: Paroxysmal atrial fibrillation, has reverted back to sinus rhythm, in the past had significant left atrial enlargement permanent atrial fibrillation undergone AV estiven ablation therapy. Currently now exhibiting sinus rhythm. Would avoid antiarrhythmic drug therapy at this point time. Continue full oral anticoagulation, currently on Eliquis 5 mg b.i.d.. Semi annual renal function test should be pursued. Avoidance of stimulants was discussed. (3) Cardiac pacemaker in situ: Comment: Medtronic, single-chamber device for ventricular support post AV estiven ablation Code(s): Z95.0 - Presence of cardiac pacemaker Category: Medical Plan: Cardiac pacemaker in-situ, single-chamber device done post AV estiven ablation and now having normal sinus rhythm. Would benefit from upgrading to a dual-chamber device. Will discuss with EPS about the same. (4) HTN (hypertension): Comment: Patient brought BP readings from home. Most were with in goal Code(s): I10 - Essential (primary) hypertension Category: Medical Qualifiers: Hypertension type: primary hypertension Qualified Code(s): I10 - Essential (primary) hypertension Plan: Hypertension which currently at goal on current therapy with carvedilol, valsartan as well as Cardizem therapy. Low-salt diet was discussed. Stress mitigation strategies was discussed. Continue with current therapy. Advised to monitor blood pressure at home maintain a log. Goal blood pressure less than 130/84. Will follow up in the clinic in 6 months time, sooner PRN. Thank you for allowing me to partake in her care Coding Level of Care Code Est Pt Level 4 (64887) Complex EM visit Add On G2211 Diagnoses (HFpEF) heart failure with preserved ejection fraction I50.30 Paroxysmal atrial fibrillation I48.0 Cardiac pacemaker in situ Z95.0 Primary hypertension I10 Hypertension type: primary hypertension CPT Codes Cardiac Device Check - Cardiac Device 1: [id number]-QV Cardiac Device Check, leadless/single lead pacemaker ([id number]) EKG - CPT: 42517-Mkqexkgljfxbolhee, Complete ([id number])
--- OUTSIDE RECORDS SUMMARY | 2025-05-01 17:05 | XMS_ITS | Clinical Summary ---
Author Organization [facility] Address [address] [place] [address] Support
== END 2025-05-01 15:22 | disposition home or self-care (01) ==
PROVIDERS: PCP Physician Assistant Medical; Visit Provider Internal Medicine Cardiovascular Disease
DX: I50.30 Unspecified diastolic (congestive) heart failure (principal); I48.0 Paroxysmal atrial fibrillation; Z95.0 Presence of cardiac pacemaker; I10 Essential (primary) hypertension
CPT/HCPCS: 93010; 93279; 99214; G2211

== ENCOUNTER → 2025-05-01 14:35 | Outpatient (BNVA) | payer MEDICARE, SELFPAY | PROVIDERS: PCP Family Medicine; Visit Provider Internal Medicine Cardiovascular Disease | DX: I48.0 Paroxysmal atrial fibrillation (principal); I50.30 Unspecified diastolic (congestive) heart failure; I10 Essential (primary) hypertension; Z95.0 Presence of cardiac pacemaker | CPT/HCPCS: 93005; 99212 ==

== ENCOUNTER → 2025-05-19 11:23 | Day surgery (SDC) | payer MEDICARE, SELFPAY ==
--- OUTSIDE RECORDS SUMMARY | 2024-01-22 09:20 | XMS_ITS ---
Author Organization [facility] Address [address] [place] [address] Care Team Providers Care Trim Sawyer Name Role Phone Refugio (RETIRED) , Yair Primary Care Provider Unavailable Tristen Zafar Jr REASON FOR VISIT lower gi bleed Encounters Encounter Location Date Provider Diagnosis [facility] [place] [address] [place], [place] [phone] 01/22/2024 Tristen Zafar Jr Plan Of Treatment No Information Progress Notes * BRIDGETTE PETERSONEDOB:1944 (79 yo F)Acc No.[id number]:01/22/2024 COLON WITH MAC Patient: ANGY GOYAL Provider: Teja Zafar MD :1945 A ge:78 Y S ex:Female Date:01/22/2024 Address:[address] [place], [place] [phone] Pcp:Yair Huff (RETIRED) MD Subjective: * Chief [...] 0 01/22/2024 Generated for Printi ng/Faxing/eTransmitting on: 1 08:03 AM EDT
--- OUTSIDE RECORDS SUMMARY | 2024-05-17 10:14 | XMS_ITS | Encounter Summary ---
Author Organization [facility] Address [address] [place] [address] Care Team Providers Care Reconciliation Specialist Name Role Phone Unavailable Primary Care Provider Unavailabl e Encounter Details Date Type Department Care Team (Late st Contact Info) Description 05/17/2024 10:14 AM EDT Hospital Encounter [facility]NC[facility] CONVERSION ONLY Jonn Michael MD [address] [place] [phone] Social History Tobacco Use Types Packs/Day Years [...]
--- OUTSIDE RECORDS SUMMARY | 2025-05-15 08:03 | XMS_ITS | Clinical Summary ---
Author Organization [facility] Address [address] [place] [address] Phone Care Team Providers Care Development Scientist Name Role Phone Yair Huff MD Primary Care Provider [phone] Social History Tobacco Use Types Packs/Day Years [...] [employer] [place] [employer] Care Teams Development Scientist Relationship Specialty Start Date End Date Yair Huff MD [address] [place] [address] [address] [place] [address] PCP - General Internal Medicine 07/12/24
--- OUTSIDE RECORDS SUMMARY | 2025-05-15 08:03 | XMS_ITS | Clinical Summary ---
Author Organization [facility] Address [address] [place] [address] Care Team Providers Care Timekeeping Supervisor Name Role Phone Yair Huff MD Primary Care Provider [phone] Allergies Active Allergy Reactions Criticality Noted Date [...] patient's age to complete this topic Insurance [facility] Care Teams Timekeeping Supervisor Relationship Specialty Start Date End Date Yair Huff MD [address] [place] [address] [place] [address] PCP - General Internal Medicine 09/23/22
--- OUTSIDE RECORDS SUMMARY | 2025-05-15 08:03 | XMS_ITS | Patient Health Record ---
Author Organization [facility] Address [address] [place] [address] Care Team Providers Care Supervisor Data Processing Name Role Phone Refugio (RETIRED) Yair ACOSTA Primary Care Provider Unavailable Tristen Zafar Jr Unavailable [phone] Allergies Allergen (clinical drug ingredient) Drug/Non Drug [...] Bisoprolol-hydroCHLOROthi azide Not-Taking Omeprazole 20mg Acti ve Ygoyll-Wedaq-Gtijna-Fish Oil Not-Taking Quinapril HCl 40mg A ctive [...] Problem Status W/U Status Risk Notes Problem [id number] Colon cancer screening (Z12.11) Active confirmed Problem 447453864 Gastroesophageal reflux disease without esophagitis (K21.9) Active confirmed Problem Diverticulosis of colon (finding) (057855872) Diverticulosis of colon (without mention of hemorrhage) (K57.30) Active confirmed Plan Of Treatment Future Test Test Name Order Date COLONOSCOPY 03/06/2016 COLONOSCOPY 04/18/2016 Insurance Providers Payer Name Payer Address Payer Phone Subscriber Number Group Number Insured Name Patient Relationship to Insured Coverage Start Date Coverage End Date [facility] [address] [place] [phone] [id number] ANGY PETERSON Self - patient is the insured Medical (General) History Medical History History ICD Code Colonoscopy 10/01/2010 GERD Hypertension Afib with rapid ventricular response vertigo Arthritis sinus shirin cardia Surgical History Surgery Date(Month/Year) Wrist and thumb surgery back surgery
[2025-05-19] VITALS (22 sets, daily range): BP systolic 160–193; BP diastolic 73–104; PULSE 59–77; RESP 10–20; TEMP 36–36.6; O2SAT 93–98; BMI 29.3
--- NOTE | 2025-05-19 | ECG_ITS ---
Test Reason : S/P PACEMAKER Blood Pressure : */* mmHG Vent. Rate : 60 BPM Atrial Rate : 60 BPM P-R Int : 176 ms QRS Dur : 128 ms QT Int : 478 ms P-R-T Axes : 32 22 22 degrees QTcB Int : 478 ms AV dual-paced rhythm Abnormal ECG When compared with ECG of 19-May-2025 12:40, AV dual-paced rhythm has replaced Ventricular-paced rhythm with A-V dissociation Referred By: Reyes Graham Electronically Signed By: TAMICA SOLITARIO MD
--- NOTE | ~2025-05-19 | XR_ITS ---
EXAMINATION: XR CHEST 1 VIEW HISTORY: r/o pneumothorax COMPARISON: Comparison is made with the prior examination dated 01/15/2025. FINDINGS: A single AP portable view of the chest performed at 3:02 PM is submitted. There has been revision of the previously seen left-sided pacemaker which now has leads in the right atrium and ventricle. The patient is rotated to the right. There are low lung volumes. No focal airspace opacity is seen. There is no pleural effusion fusion, pneumothorax, or pulmonary vascular congestion. The heart is normal in size. There is degenerative disc disease of the spine. XR/XR chest 1V IMPRESSION: No pneumothorax. Electronically signed by: Ranjith Gil MD 05/19/2025 03:42 PM EDT
--- NOTE | 2025-05-19 12:27 | ECG_ITS ---
Test Reason : PREOP CHECK RHYTHM HX AFIB Blood Pressure : */* mmHG Vent. Rate : 60 BPM Atrial Rate : 56 BPM P-R Int : * ms QRS Dur : 120 ms QT Int : 456 ms P-R-T Axes : 60 11 10 degrees QTcB Int : 456 ms Normal sinus rhythm with A-V dissociation Ventricular-paced rhythm Abnormal ECG When compared with ECG of 15-Jan-2025 09:12, Premature ventricular complexes are no longer Present Vent. rate has decreased by 4 bpm Referred By: Reyes Graham Electronically Signed By: TAMICA SOLITARIO MD
[2025-05-19] MEDS: Lactated Ringers 1,000 ML 100 ML IVCONT (12:52)
--- NOTE | 2025-05-19 13:36 | PC.NURSE ---
This RN pushed 15 ML Omnipaque IV per MD for venogram
--- NOTE | 2025-05-19 14:26 | PC.NURSE ---
Pt has allergy to Tegaderm occlusive dressing; IV 3000 dressing and gauze to be applied by MD instead
--- NOTE | 2025-05-19 14:42 | W.PM.OPN ---
Operative Note Operative Note Date of Service: 05/19/25 Narrative: Indication: Complete heart block Atrial fibrillation Pacemaker syndrome Summary: 1. Upgrade of single chamber ventricular pacemaker to dual chamber pacemaker by implanting an atrial lead (CPT 12858) 2. Pacemaker pocket revision (+47195) 2. Moderate sedation provided by ms for 65 minutes (CPT 53297, +82489 x4) Narrative: Patient presented to the EP lab in a fasting, nonsedated state after written informed consent was verified. The procedure was performed under moderate sedation provided by ms. 2g IV Ancef was administered prior to skin incision. The patient was prepped and draped in the usual sterile manner. A LUE venogram was performed to ensure venous patency. A 1-inch incision was made over the prior incision. The pocket was exposed using a combination of electrocautery and blunt dissection. A subclavian access was obtained with a micropuncture needle and wire. A 7-Fr sheath was advanced over the guidewire. The RA pacing lead was advanced to the RA. The lead was positioned in the RAA using a combination of striaght and curved stylets. The active fixation mechanism was extended. Pacing parameters (injury, capture threshold, impedance, and sensing) were checked to be excellent. Adequate slack was confirmed on the lead. The 7-Fr sheath was slit. The stylet was removed. The lead was secured to the underlying pectoralis muscle using 0-Ethibond sutures. The pacemaker pacemaker pocket was enlarged and revised to accommodate the new generator and free the fibrosis within the pocket. The new Medtronic dual chamber pacemaker generator was brought to the field. The existing 3830 ventricular pacing lead was detached from the prior generator and promptly inserted into the respective port of the new generator. The lead was secured in the header using the provided torque wrench. The new atrial lead was advanced into the respective port of the new generator and secured into the header using the torque wrench. The pocket was flushed with an antibiotic irrigant. Any bleeders within the pocket were controlled with electrocautery. The leads were wrapped underneath the new generator and the new pacemaker was placed within the pocket. A TYRX antibiotic envelope was placed within the pocket. The pocket was closed in two layers using 2-0 followed by 4-0 V-Loc. Dermabond was applied over the incision site. Gauze and occlusive dressing were then placed over the incision site. Patient was then transported back to recovery in a stable condition. Recommendations: 1. CXR and EKG now. 2. Device interrogation prior to discharge. 3. Resume DOAC on 05/23/25. 4. Wear left arm sling continuously for 24 hours. Then wear it only when sleeping for 2 weeks. 5. No raising left arm above shoulder level or reaching behind the back with left arm for 4 weeks. No driving for 2 weeks. 6. Keep chest incision site dry for 7 days. 7. Remove the gauze and tape dressing after 3 days. 8. Follow up in clinic in 1-2 weeks for incision site check. 9. Discharge home after 2 hours if patient remains stable Procedure start: 1:25 PM Procedure end: 2:34 PM
--- NOTE | 2025-05-19 15:11 | W.PM.OPN ---
Operative Note Operative Note Date of Service: 05/19/25 Narrative: Indication: Complete heart block Atrial fibrillation Pacemaker syndrome Summary: 1. Upgrade of single chamber ventricular pacemaker to dual chamber pacemaker by implanting an atrial lead (CPT 59251) 2. Pacemaker pocket revision (+[id number]) 2. Moderate sedation provided by ak for 65 minutes (CPT 93030, +22739 x4) Narrative: Patient presented to the EP lab in a fasting, nonsedated state after written informed consent was verified. The procedure was performed under moderate sedation provided by ak. 2g IV Ancef was administered prior to skin incision. The patient was prepped and draped in the usual sterile manner. A LUE venogram was performed to ensure venous patency. A 1-inch incision was made over the prior incision. The pocket was exposed using a combination of electrocautery and blunt dissection. A subclavian access was obtained with a micropuncture needle and wire. A 7-Fr sheath was advanced over the guidewire. The RA pacing lead was advanced to the RA. The lead was positioned in the RAA using a combination of striaght and curved stylets. The active fixation mechanism was extended. Pacing parameters (injury, capture threshold, impedance, and sensing) were checked to be excellent. Adequate slack was confirmed on the lead. The 7-Fr sheath was slit. The stylet was removed. The lead was secured to the underlying pectoralis muscle using 0-Ethibond sutures. The pacemaker pacemaker pocket was enlarged and revised to accommodate the new generator and free the fibrosis within the pocket. The new Medtronic dual chamber pacemaker generator was brought to the field. The existing 3830 ventricular pacing lead was detached from the prior generator and promptly inserted into the respective port of the new generator. The lead was secured in the header using the provided torque wrench. The new atrial lead was advanced into the respective port of the new generator and secured into the header using the torque wrench. The pocket was flushed with an antibiotic irrigant. Any bleeders within the pocket were controlled with electrocautery. The leads were wrapped underneath the new generator and the new pacemaker was placed within the pocket. A TYRX antibiotic envelope was placed within the pocket. The pocket was closed in two layers using 2-0 followed by 4-0 V-Loc. Dermabond was applied over the incision site. Gauze and occlusive dressing were then placed over the incision site. Patient was then transported back to recovery in a stable condition. Recommendations: 1. CXR and EKG now. 2. Device interrogation prior to discharge. 3. Resume DOAC on 05/23/25. 4. Wear left arm sling continuously for 24 hours. Then wear it only when sleeping for 2 weeks. 5. No raising left arm above shoulder level or reaching behind the back with left arm for 4 weeks. No driving for 2 weeks. 6. Keep chest incision site dry for 7 days. 7. Remove the gauze and tape dressing after 3 days. 8. Follow up in clinic in 1-2 weeks for incision site check. 9. Discharge home after 2 hours if patient remains stable Procedure start: 1:25 PM Procedure end: 2:34 PM
== END | disposition home or self-care (01) ==
PROVIDERS: PCP Physician Assistant Medical; Visit Provider Student in an Organized Health Care Education/Training Program
DX: I49.5 Sick sinus syndrome (principal); Z95.0 Presence of cardiac pacemaker; I44.2 Atrioventricular block, complete; I48.91 Unspecified atrial fibrillation
CPT/HCPCS: 33208; 33214; 71045; 93005; 99152; 99153; C1785; C1889; C1892; C1898; J0690; J2003; J2250; J2405; J3010; J3374; Q9967

== ENCOUNTER → 2025-05-19 12:27 | Outpatient (BNV) | payer MEDICARE, SELFPAY | PROVIDERS: PCP Physician Assistant Medical; Visit Provider Internal Medicine Cardiovascular Disease | DX: R94.31 Abnormal electrocardiogram [ECG] [EKG] (principal); Z95.0 Presence of cardiac pacemaker | CPT/HCPCS: 93010 ==

== ENCOUNTER → 2025-05-19 15:13 | Outpatient (BNV) | payer MEDICARE, SELFPAY | PROVIDERS: PCP Physician Assistant Medical; Visit Provider Radiology Diagnostic Radiology | DX: Z45.018 Encounter for adjustment and management of other part of cardiac pacemaker (principal); J98.4 Other disorders of lung | CPT/HCPCS: 71045 ==

== ENCOUNTER → 2025-06-04 23:59 | Outpatient (BNV) | payer MEDICARE, SELFPAY ==
--- NOTE | 2025-06-05 15:43 | MHC.OFFVIS ---
Intake Visit Reasons: Remote device check- Medtronic Allergies aspirin (ASPIRIN) Allergy (Unknown, Verified 05/19/25 12:02) RASH codeine Allergy (Unknown, Verified 05/19/25 12:02) Unknown ibuprofen Allergy (Unknown, Verified 05/19/25 12:02) Unknown nitroglycerin Allergy (Unknown, Verified 05/19/25 12:02) Unknown sertraline (From Zoloft) Allergy (Unknown, Verified 05/19/25 12:02) Unknown Sulfa (Sulfonamide Antibiotics) (SULFA (SULFONAMIDE ANTIBIOTICS)) Allergy (Unknown, Verified 05/19/25 12:02) RASH tramadol Allergy (Unknown, Verified 05/19/25 12:02) Unknown flecainide Adverse Reaction (Intermediate, Verified 05/19/25 12:02) Dizziness amiodarone Adverse Reaction (Mild, Verified 05/19/25 12:02) Dizziness adhesive tape Adverse Reaction (Verified 05/19/25 12:02) Redness of Skin Digitalis Glycosides Adverse Reaction (Verified 05/19/25 12:02) Confusion adhesives Adverse Reaction (Uncoded 01/15/25 07:21) Unknown [facility] Medical History Shoulder fracture, left Paroxysmal atrial fibrillation Permanent atrial fibrillation Gallstones (HFpEF) heart failure with preserved ejection fraction Cardiac pacemaker in situ Preoperative cardiovascular examination NSTEMI (non-ST elevated myocardial infarction) Pulmonary hypertension Chronic heart failure with preserved ejection fraction (HFpEF) Chronic heart failure with preserved ejection fraction (HFpEF) Cardiomyopathy Pulmonary hypertension Diastolic dysfunction History of cardiomyopathy HTN (hypertension) History of cardioversion Surgical History (Updated 05/19/25 @ 11:56 by Henny Finn, RN) Hx of cholecystectomy History of hip surgery History of colonoscopy (~01/22/24) S/P cardiac catheterization Hx of total hip arthroplasty Hx of cardiac cath Hx of hand surgery History of back surgery Family History Father Cancer Mother Stroke Brother Atrial fibrillation Sister Cardiovascular disease Atrial fibrillation Social History Household Members: None Housing: House Do you presently have visiting nurse or other home services: No Alcohol intake: former Comment: pt refusing bed alarm Patient Tobacco Use Status: Never used Tobacco e-Cigarette/Vaping Use: Never Used Second Hand Smoke Exposure: No Advance Directives Date on File: 12/18/22 service: No Current occupational status: retired Cognitive needs: No Hearing needs: No Vision needs: Yes (rx glasses) Office Procedures Cardiac Device Check Cardiac Device Check Details: Remote pacemaker report generated 06/04/2025. Pacemaker function is adequate. No episodes of atrial fibrillation [place] [id number] Cardiac Device Interrogation, pacemaker Procedure code (CPT) selection complete Assessment & Plan Assessment & Plan (1) Cardiac pacemaker in situ: Comment: Medtronic, single-chamber device for ventricular support post AV estiven ablation Code(s): Z95.0 - Presence of cardiac pacemaker Category: Medical Plan: See above Coding Level of Care Code Procedure Only Diagnoses Cardiac pacemaker in situ Z95.0 CPT Codes Cardiac Device Check - Cardiac Device 12: [id number] Cardiac Device Interrogation, pacemaker ([id number])
== END ==
PROVIDERS: PCP Physician Assistant Medical; Visit Provider Internal Medicine Cardiovascular Disease
DX: Z45.018 Encounter for adjustment and management of other part of cardiac pacemaker (principal)
CPT/HCPCS: 93294

== ENCOUNTER 2025-07-24 10:21 | Outpatient (REF) | payer MEDICARE, SELFPAY ==
[2025-07-24 11:19] LABS: MANUAL DIFF FLAG NO
[2025-07-24 11:27] LABS: Hematocrit 44.4 % (37.0-47.0); Hemoglobin 14.8 g/dl (12.0-16.0); Imm Gran Abs Auto 0.01 X10*3/uL (0.00-0.03); Imm Gran Pct Auto 0.2 % (0.0-0.4); Lymphocytes Absolute Auto 1.2 X10*3/uL (1.2-4.9); Mean Corpuscular HGB Conc 33.3 g/dl (31.0-35.0); Mean Corpuscular Hemoglobin 32.0 pg (27.0-33.0); Mean Corpuscular Volume 95.9 fL (80.0-98.0); NRBC Abs Auto 0.000 X10*3/uL (0.0-0.012); NRBC Pct Auto 0.0 /100WBC (0.0-0.2); Platelet Count 165 X10*3/uL (160-400); Red Blood Count 4.63 X10*6/uL (4.20-5.50); White Blood Count 5.7 X10*3/uL (4.8-10.8)
[2025-07-24 12:06] LABS: Alanine Aminotransferase 21 U/L (0-31); Albumin Level 4.6 g/dL (3.5-5.0); Alkaline Phosphatase 108 U/L (39-117); Anion Gap 10 (12-20); Aspartate Amino Transferase 29 U/L (5-31); Blood Urea Nitrogen 23 mg/dL (9-16); Calcium 9.6 mg/dL (8.4-10.2); Carbon Dioxide 27 mmol/L (22-29); Chloride 111 mmol/L (96-108); Estimated Glomerular Filt Rate > 60; Potassium 3.8 mmol/L (3.3-5.1); Sodium 144 mmol/L (135-145); Total Protein 7.2 g/dL (6.5-8.0)
== END 2025-07-24 10:22 | disposition home or self-care (01) ==
LOC: HO.LAB 10:21
PROVIDERS: PCP Student in an Organized Health Care Education/Training Program; Visit Provider Student in an Organized Health Care Education/Training Program
DX: Z13.1 Encounter for screening for diabetes mellitus (principal); I11.0 Hypertensive heart disease with heart failure; I50.32 Chronic diastolic (congestive) heart failure; I48.21 Permanent atrial fibrillation; R73.9 Hyperglycemia, unspecified; G89.4 Chronic pain syndrome
CPT/HCPCS: 36415; 80053; 83036; 85025; 99212

== ENCOUNTER 2025-07-24 10:21 | Outpatient (AMB) | payer MEDICARE, SELFPAY ==
--- NOTE | 2025-07-24 10:23 | A.OFFPC_ITS ---
Vital Signs 07/24/25 10:27 Height 5 ft 3.39 in Weight 171 lb BMI 29.9 BP 152/84 H Blood Pressure Location Rt brachial Position Sitting Respiration 20 Pulse 74 Pulse Source Pulse Oximeter Temp 97.3 F Temp Source Temporal Artery Scan Pulse Oximetry (%) 97 Oxygen Delivery Method Room Air Intake Visit Reasons: routine - see comments Food Production Supervisor Required: No Accompanied by: Self / Same As Patient Allergies aspirin (ASPIRIN) Allergy (Unknown, Verified 07/24/25 10:23) RASH codeine Allergy (Unknown, Verified 07/24/25 10:23) Unknown ibuprofen Allergy (Unknown, Verified 07/24/25 10:23) Unknown nitroglycerin Allergy (Unknown, Verified 07/24/25 10:23) Unknown sertraline (From Zoloft) Allergy (Unknown, Verified 07/24/25 10:23) Unknown Sulfa (Sulfonamide Antibiotics) (SULFA (SULFONAMIDE ANTIBIOTICS)) Allergy (Unknown, Verified 07/24/25 10:23) RASH tramadol Allergy (Unknown, Verified 07/24/25 10:23) Unknown flecainide Adverse Reaction (Intermediate, Verified 07/24/25 10:23) Dizziness amiodarone Adverse Reaction (Mild, Verified 07/24/25 10:23) Dizziness adhesive tape Adverse Reaction (Verified 07/24/25 10:23) Redness of Skin Digitalis Glycosides Adverse Reaction (Verified 07/24/25 10:23) Confusion adhesives Adverse Reaction (Uncoded 01/15/25 07:21) Unknown Medication List - Last Reconciled 07/24/25 by Meng Maloney MD apixaban (Eliquis) 5 mg PO BID ascorbic acid (vitamin C) 1,000 mg PO DAILY atorvastatin 40 mg PO DAILY carvedilol 25 mg PO BID cholecalciferol (vitamin D3) (Vitamin D3) 25 mcg PO DAILY coenzyme Q10 100 mg PO DAILY diltiazem HCl CD 120 mg PO DAILY empagliflozin (Jardiance) 10 mg PO DAILY 90 days fexofenadine (Shea Allergy) 180 mg PO DAILY furosemide 40 mg PO DAILY 90 days gabapentin 600 mg PO BEDTIME ipratropium-albuterol 0.5 mg-3 mg(2.5 mg base)/3 mL 3 mL inhalation Q4-6H PRN magnesium 250 mg PO BEDTIME meloxicam 15 mg PO DAILY montelukast 10 mg PO DAILY PRN multivitamin 1 tab PO DAILY omeprazole 40 mg PO BEDTIME valsartan 40 mg PO DAILY Tobacco use date assessed: 04/04/25 Fall risk assessment: No Falls in past year Last assessed Fall Risk: 07/24/25 Dental Screening Dental Screen Date: 04/04/25 HPI HPI Comments History of Present Illness Details The patient is a 80 year old male presenting for follow-up and management of multiple chronic conditions. She reports never feeling 100%. The patient has a history of atrial fibrillation which has recurred despite having undergone placement of a dual-chamber pacemaker, which was an upgrade from a previous single-chamber device. She has complete heart block, meaning there is no electrical conduction from the atria to the ventricles, and the pacemaker is intended to coordinate contractions. Mehran has a diagnosis of heart failure with preserved ejection fraction (HFpEF), specifically severe grade 3 diastolic dysfunction, with an ejection fraction of 56%. Mehran reports that since receiving the second pacemaker, her breathing has improved, but at times it is still not great and he notes it is a chore to walk from the parking lot into the clinic, whereas she previously walked five miles a day. Her other medical history includes hypertension, for which her blood pressures at home are well-controlled, typically ranging from 110-140 systolic. However, during a hospitalization for a cholecystectomy, her blood pressure increased to 240 mmHg. She also has stage 3A kidney disease, hypercholesterolemia, gastroesophageal reflux disease, and allergies. The patient reports chronic pain from arthritis and a prior back surgery in 1985, for which she takes gabapentin and meloxicam, though she feels the gabapentin is not very helpful. She had a blood transfusion in January of the previous year around the time of her cholecystectomy for a bleed. Her last blood work was in April. Her daughters, aged 41 and 54, have been diagnosed with juvenile diabetes and type 2 diabetes, respectively. The patient denies a personal history of diabetes, although past labs have shown higher blood sugars. Medical History: - Atrial Fibrillation with complete hear t block - Heart failure with preserved ejection fraction (severe grade 3 diastolic dysfunction) - Hypertension - Hypercholesterolemia - Chronic pain secondary to arthritis - Stage 3A chronic kidney disease - Gastroesophageal reflux disease - Allergies - History of blood transfusion in January o last year Surgical History: - Placement of a dual chamber pacemaker, which was an upgrade from a prior single chamber pacemaker - Back surgery in 1985 - Cholecystectomy Medications: - Eliquis 5 mg twice a day for atrial fi brillation - Atorvastatin 40 mg for hypercholestero lemia - Carvedilol 25 mg twice a day for hyper tension and heart failure - Diltiazem 120 mg for hypertension and heart failure - Jardiance 10 mg for heart failure - Furosemide 40 mg once a day for heart failure - Gabapentin for generalized pain/arthri tis - Meloxicam 15 mg for pain - Montelukast for allergies - Omeprazole 40 mg for acid reflux - Valsartan 40 mg once a day for hyperte nsion Family History: - Oldest daughter diagnosed with juvenil e diabetes at age 41 - Youngest daughter, age 54, diagnosed w ith type 2 diabetes last year - Brother, age 91, has heart problems Diagnostic Results: - Echocardiogram: Good ejection fraction of 56% with severe diastolic dysfunction, grade 3. - Labs from April: Blood counts and electrolytes were good. - Labs: Blood sugars have been on the [facility] side in the past. Social History: - Functional Status: The patient's funct ional capacity is limited due to his heart condition. - Exercise: He previously walked five mi les a day but now finds walking from the parking lot to the clinic to be a chore. - Driving: The patient is currently driv ing. - Assistive Devices: He sometimes needs a walking stick. [facility] Medical History (Updated 07/24/25 @ 11:02 by Meng Maloney MD) Hyperglycemia Chronic pain Shoulder fracture, left Paroxysmal atrial fibrillation Permanent atrial fibrillation Gallstones (HFpEF) heart failure with preserved ejection fraction Cardiac pacemaker in situ Preoperative cardiovascular examination NSTEMI (non-ST elevated myocardial infarction) Pulmonary hypertension Chronic heart failure with preserved ejection fraction (HFpEF) Chronic heart failure with preserved ejection fraction (HFpEF) Cardiomyopathy Pulmonary hypertension Diastolic dysfunction History of cardiomyopathy HTN (hypertension) History of cardioversion Surgical History (Updated 05/19/25 @ 11:56 by Henny Finn RN) Hx of cholecystectomy History of hip surgery History of colonoscopy (~01/22/24) S/P cardiac catheterization Hx of total hip arthroplasty Hx of cardiac cath Hx of hand surgery History of back surgery Family History Father Cancer Mother Stroke Brother Atrial fibrillation Sister Cardiovascular disease Atrial fibrillation Social History Household Members: None Housing: House Do you presently have visiting nurse or other home services: No Alcohol intake: former Comment: pt refusing bed alarm Patient Tobacco Use Status: Never used Tobacco e-Cigarette/Vaping Use: Never Used Second Hand Smoke Exposure: No Advance Directives Date on File: 12/18/22 service: No Current occupational status: retired Cognitive needs: No Hearing needs: No Vision needs: Yes (rx glasses) Questionnaire Thrive Questionnaire Date Thrive assessed: 04/04/25 BERKLEY-7 AMB Questionnaire BERKLEY-7 Date BERKLEY - 7 assessed: 04/04/25 Source: Developed by Drs. Ranjith Del Valle, Hilary De Paz, Rudolph Martínez and colleagues, with an educational rina from [employer]. Review of Systems Narrative - General: Reports not feeling 100%. - Respiratory: Reports that breathing has improved since the new pacemaker but is still not that great at times. - Neurological: Reports a history of tingling. - Musculoskeletal: Reports generalized pain and arthritis. All systems reviewed & are unremarkable except as reviewed in HPI and above Physical exam (Primary Care) Vital Signs: Last Vital Signs Temp 97.3 F 07/24/25 10:27 Pulse 74 07/24/25 10:27 Resp 20 07/24/25 10:27 BP 152/84 H 07/24/25 10:27 Pulse Ox 97 07/24/25 10:27 Oxygen Delivery Method Room Air 07/24/25 10:27 Care Plan Goal for BP management: Pressures at goal at home Next steps: Continue same regiment BMI result Body Mass Index 29.9 Tobacco/Smoking Status: Tobacco use Status Tobacco use date assessed 04/04/25 07/24/25 10:35 Patient Tobacco Use Status Never used Tobacco 07/24/25 10:35 e-Cigarette/Vaping Use Never Used 07/24/25 10:35 Thrive Assessment: Date of Thrive Assessment Date Thrive assessed 04/04/25 07/24/25 10:35 Narrative General: Alert and oriented, Well nourished, No acute distress. Eye: Pupils are equal, round and reactive to light, Intact accommodation, Extraocular movements are intact, Normal conjunctiva, Vision unchanged. HENT: Normocephalic, Atraumatic, Tympanic membranes are clear, Normal hearing, Oral mucosa is moist, No pharyngeal erythema, Ear canals patent. Respiratory: Lungs CTA bilaterally, No wheeze, Respirations are non-labored, Breathing improved with second pacemaker but occasionally not great. Cardiovascular: Irregular rhythm due to atrial fibrillation, Dual chamber pacemaker in place, Regular rate, S1 auscultated, S2 auscultated, No murmur, Good pulses equal in all extremities, Normal peripheral perfusion, No edema. Gastrointestinal: Soft, Non-tender, Non-distended, Normal bowel sounds, No organomegaly. Musculoskeletal: Normal range of motion, Normal strength, No tenderness, No swelling, No deformity, Normal gait. Integumentary: Warm, Dry, Tavernier, Intact. Neurologic: Alert, Oriented, Normal sensory, Normal motor function, No focal defects, Cranial Nerves II-XII are grossly intact, Normal deep tendon reflexes. Psychiatric: Cooperative, Appropriate mood & affect, Normal judgment. Coding Level of Care Code Est Pt Level 4 (16874) Add On Problem Visit Only Diagnoses Chronic heart failure with preserved ejection fraction (HFpEF) I50.32 Heart failure chronicity: chronic Primary hypertension I10 Hypertension type: primary hypertension Permanent atrial fibrillation I48.21 Chronic pain syndrome G89.4 Chronic pain type: chronic pain syndrome Hyperglycemia R73.9 Assessment & Plan Assessment & Plan (1) (HFpEF) heart failure with preserved ejection fraction: Comment: - The patient's dyspnea on exertion is attributed to his severe grade 3 diastolic dysfunction. - It was explained that the condition is reversible, and the goal is to prevent progression which may result in improvement. - She will continue to be managed by his cardiology team. Code(s): I50.30 - Unspecified diastolic (congestive) heart failure Category: Medical Qualifiers: Heart failure chronicity: chronic Qualified Code(s): I50.32 - Chronic diastolic (congestive) heart failure (2) HTN (hypertension): Comment: - Blood pressure is well-controlled at home on current medication regimen, which includes carvedilol, diltiazem, and valsartan. - Continue current medications. Code(s): I10 - Essential (primary) hypertension Category: Medical Qualifiers: Hypertension type: primary hypertension Qualified Code(s): I10 - Essential (primary) hypertension (3) Permanent atrial fibrillation: Comment: - The patient has recurrent atrial fibrillation and complete heart block, managed with a dual-chamber pacemaker. - She is on Eliquis for stroke prevention. - Cardiology will continue to manage this condition. Code(s): I48.21 - Permanent atrial fibrillation Category: Medical (4) Chronic pain: Comment: - The patient experiences chronic pain from arthritis and prior back surgery. - He reports that gabapentin is not very effective. - He also takes meloxicam. - No changes to his pain regimen were made at this visit. Code(s): G89.29 - Other chronic pain Category: Medical Qualifiers: Chronic pain type: chronic pain syndrome Qualified Code(s): G89.4 - Chronic pain syndrome (5) Hyperglycemia: Comment: - The patient's blood sugars have been high in the past and she has a strong family history of diabetes. - She denies a personal history of diabetes. - Plan to check blood sugar and re-evaluate for diabetes with today's lab work. Code(s): R73.9 - Hyperglycemia, unspecified Category: Medical Plan: Health Maintenance: - The patient is on atorvastatin for the prevention of cardiovascular events. - Given his past elevated blood sugar readings and strong family history of diabetes, blood work was ordered today to screen for diabetes. - Due to exertional limitations, paperwork for a handicap parking placard was completed. Patient was informed and verbally consented to the use of an ambient scribe for clinic note documentation during this visit. Plan I reviewed the patient's extensive medical history with him, including his atrial fibrillation, complete heart block, and status post dual-chamber pacemaker. I explained the pathophysiology of his severe grade 3 diastolic dysfunction, clarifying that his heart pumps effectively but does not relax properly, which limits filling and causes his symptoms of shortness of breath. I emphasized that while his condition cannot be reversed, the goals of therapy are to prevent it from getting worse. We discussed the rationale for his current medications, which he is taking as prescribed. I noted his blood pressures are well-controlled at home. Given his strong family history of diabetes and previously elevated blood sugars, I recommended and ordered blood work to check his sugar levels and rule out new- onset diabetes. I agreed to complete the paperwork for a handicap parking placard to assist with his limited mobility. I advised him to follow up in two months and to reach out if any needs arise. Orders: Orders Complete Blood Count Auto Diff Today I10 - Essential (primary) hypertension, Z13.1 - Encounter for screening for diabetes mellitus Comprehensive Met. Panel Today I10 - Essential (primary) hypertension, Z13.1 - Encounter for screening for diabetes mellitus Hemoglobin A1c Today I10 - Essential (primary) hypertension, Z13.1 - Encounter for screening for diabetes mellitus Patient Instructions: - Continue taking all of your medications as prescribed. - Go to the lab [place] the [place] today to get your blood work done. We will check your blood sugar and cholesterol levels. - Your heart condition is being managed by your heart doctors (cardiologists). Continue to follow their recommendations. - We have filled out the form for a [employer] parking tag for you. - Schedule a follow-up appointment at the senior [facility] for two months from now. - Please contact our office if you need anything before your next appointment.
[2025-07-24 10:27] VITALS: BP 152/84; PULSE 74; RESP 20; TEMP 36.3; O2SAT 97; BMI 29.9
== END 2025-07-24 10:57 | disposition home or self-care (01) ==
PROVIDERS: PCP Student in an Organized Health Care Education/Training Program; Visit Provider Student in an Organized Health Care Education/Training Program
DX: I50.32 Chronic diastolic (congestive) heart failure (principal); I10 Essential (primary) hypertension; I48.21 Permanent atrial fibrillation; G89.4 Chronic pain syndrome; R73.9 Hyperglycemia, unspecified